=== PATIENT | female | born 1940 | race Two or more races ===

== ENCOUNTER 2021-02-15 13:13 | Emergency (ER) | payer MEDICARE, SELFPAY ==
[2021-02-15 14:01] VITALS: BP 117/65; PULSE 67; RESP 18; TEMP 36.7; O2SAT 96; BMI 20.2
== END 2021-02-15 18:10 | disposition left against medical advice (07) ==
PROVIDERS: Emergency Provider Emergency Medicine
DX: Z91.81 History of falling (principal)
CPT/HCPCS: 99281; 99282

== ENCOUNTER 2021-11-17 15:38 | Outpatient (REF) | payer OTHER, SELFPAY ==
[2021-11-17 16:07] LABS: Appearance Urine CLEAR; Color Urine YELLOW; Glucose Urine UA NEG (NEG); Leukocyte Esterase Urine NEG (NEG); Nitrite Urine NEG (NEG); Specific Gravity - Urine 1.025 (1.005-1.025); Urine Blood TRACE (NEG); Urine Ketones NEG (NEG); Urine Protein NEG (NEG-TRACE)
[2021-11-17 16:16] LABS: Bacteria Urine TRACE /LPF; RBC Urine 0-2 /HPF (0); Squamous Epithelial Cell Urine 1+ /LPF; WBC Urine 0 /HPF (0-4)
== END 2021-11-17 15:39 | disposition home or self-care (01) ==
LOC: HO.LAB 15:38
PROVIDERS: PCP Registered Nurse Community Health; Visit Provider Internal Medicine Hypertension Specialist
DX: N18.31 Chronic kidney disease, stage 3a (principal)
CPT/HCPCS: 81001

== ENCOUNTER 2022-01-13 10:21 | Inpatient (IN) | payer OTHER, SELFPAY ==
--- NOTE | ~2022-01-13 | XR_ITS ---
EXAMINATION: XR PELVIS CLINICAL INFORMATION: Right pelvic fracture COMPARISON: Previous CT of the abdomen and pelvis December 2021 TECHNIQUE: AP view of the pelvis. FINDINGS: There are fractures of the right superior and inferior pubic rami near the pubic symphysis. Do not appear appreciably changed from December 2021 exam. Fracture lines are still seen. Nondisplaced right iliac crest fracture extending to the sacroiliac joints seen by CT is difficult to appreciate by x-ray.. Hip joints are normal. Soft tissues are normal. XR/XR pelvis 1-2V IMPRESSION: No change in the right superior and inferior pubic rami fractures near the pubic symphysis. Nondisplaced right iliac bone fracture difficult to appreciate by x-ray.
--- NOTE | ~2022-01-13 | CT_ITS ---
EXAMINATION: CT CERVICAL SPINE WITHOUT CONTRAST CLINICAL INFORMATION: Neck pain. Fall. COMPARISON: Previous cervical spine CT July 2016 TECHNIQUE: Axial images through the cervical spine without contrast. Sagittal and coronal reconstructions on the technologist workstation were performed. This CT examination was performed using dose optimization techniques as appropriate, variously including the following: *Automated exposure control *Adjustment of mA and/or kV according to patient size (this includes techniques or standardized protocols for targeted exams where dose is matched to indication/reason for exam; i.e. extremities or head) *Use of iterative reconstruction technique DLP: 198 mGy-cm FINDINGS: Bone alignment is normal. No fracture or dislocation is seen. There is degenerative spondylosis at C5-C6. There are degenerative changes at the C1 dens articulation. There is bilateral facet arthritis. Prevertebral soft tissues are normal. Visualized lung apices are clear. CT/CT cervical spine wo con IMPRESSION: No fracture or dislocation. Mild degenerative changes. Fleischner guidelines were followed.
--- NOTE | ~2022-01-13 | CT_ITS ---
EXAMINATION: CT CHEST WITHOUT IV CONTRAST CT ABDOMEN AND PELVIS WITHOUT IV CONTRAST CLINICAL INFORMATION: 81-year-old female with history of fall. COMPARISON: Abdomen/pelvis CT from 03/13/2020. TECHNIQUE: Noncontrast multidetector CT imaging examination of the chest, abdomen and pelvis was performed . Axial images are displayed at 0.6 mm and 5 mm slice thickness. Coronal and sagittal reformatted images were generated at the technologist's workstation and submitted for review. This CT examination was performed using dose optimization techniques as appropriate, variously including the following: *Automated exposure control *Adjustment of mA and/or kV according to patient size (this includes techniques or standardized protocols for targeted exams where dose is matched to indication/reason for exam; i.e. extremities or head) *Use of iterative reconstruction technique DLP: 602 mGy-cm FINDINGS: CHEST - LUNGS AND PLEURA: Trachea and central airways are widely patent and normal in caliber. Chronic interstitial lung disease has a basilar, lower lobe predominance. Associated chronic mild traction bronchiectasis. Findings compatible with chronic usual interstitial pneumonitis. No focal consolidation, pleural effusion or pneumothorax. MEDIASTINUM/LOWER NECK: Cardiomegaly with prominent left ventricle. No pericardial effusion. Atherosclerotic calcification of thoracic aorta. The ascending aorta is dilated up to 4.2 cm AP diameter at the level the right pulmonary artery (image 26, series 9). The hypodensity of the blood pool compared to the myocardium suggests presence of anemia. The esophagus is unremarkable. Thyroid gland is atrophied. No mediastinal mass. LYMPHATICS: No pathologic sized axillary, hilar or mediastinal lymph nodes. CHEST WALL/BONES: The visualized bones have normal alignment at the shoulders and sternoclavicular joints. No sternal fracture. Acute, mildly displaced fracture of the right lateral sixth rib. Probable acute, nondisplaced fracture of right lateral seventh rib. No chest wall hematoma. Old moderate compression fracture of the T12 vertebral body. No acute findings in the visualized degenerated lower cervical spine or thoracic spine. ABDOMEN AND PELVIS - HEPATOBILIARY: Liver has normal size and contour. No perihepatic fluid collection. Gallbladder is surgically absent. No dilated bile ducts. PANCREAS: No edema, mass or pancreatic ductal dilatation. SPLEEN: Normal. ADRENAL GLANDS: Normal. KIDNEYS AND URETERS: Kidneys are normal in size. No hydronephrosis or perinephric edema. There appears to be a punctate calyceal stone of the mid right kidney. The ureters are unremarkable. BOWEL AND PERITONEUM: No dilated loops of bowel. The appendix is normal. Colonic diverticulosis without diverticulitis. ABDOMINAL WALL: Unremarkable. VESSELS: Atherosclerotic calcification of the abdominal aorta and iliac arteries without aneurysm. No retroperitoneal hematoma. LYMPH NODES: No pathologic sized lymph nodes in the abdomen or pelvis. No inguinal lymphadenopathy. BLADDER AND PELVIC VISCERA: Urinary bladder is grossly normal. No uterine or adnexal mass. MUSCULOSKELETAL: Multilevel disc degenerative change and facet arthropathy of the levoscoliotic lumbar spine. No acute fractures in the lumbar spine. Chronic mild degenerative retrolisthesis of L2 on L3. Bones are diffusely osteopenic. There is an acute, mildly displaced fracture of the posterior right iliac bone that has extension to the posterior margin of the right sacroiliac joint. There are acute, moderately displaced right pubic bone fractures involving superior and inferior rami. Alignment is maintained at pubic symphysis. There is associated hemorrhage in adjacent soft tissues, involving space of Retzius, exerting mild mass effect upon urinary bladder. Mild posttraumatic swelling of the right obturator internus and externus muscles. Proximal femurs are intact. Small osteophytes of the mildly degenerated hips. No evidence of acetabular fracture. CT/CT abdomen pelvis wo con IMPRESSION: * Acute, mildly displaced fracture of the right lateral sixth rib and probable nondisplaced fracture of adjacent seventh rib. No pleural effusion or pneumothorax. * Chronic interstitial lung disease. * Acute, moderately displaced right pubic bone fractures with associated soft tissue hemorrhage involving space of Retzius with hematoma exerting mild mass effect upon urinary bladder. Also, there is a mildly displaced fracture of the posterior right iliac bone. * Old moderate compression fracture of T12 vertebral body. No acute vertebral fractures. * Colonic diverticulosis without diverticulitis. * Cardiomegaly. Mildly dilated ascending thoracic aorta is 4.2 cm diameter.
--- NOTE | ~2022-01-13 | CT_ITS ---
EXAMINATION: CT HEAD WITHOUT CONTRAST CLINICAL INFORMATION: Fall. COMPARISON: Previous head CT February 2018 TECHNIQUE: Contiguous axial imaging was performed from the skull base to vertex without intravenous administration of contrast. This CT examination was performed using dose optimization techniques as appropriate, variously including the following: *Automated exposure control *Adjustment of mA and/or kV according to patient size (this includes techniques or standardized protocols for targeted exams where dose is matched to indication/reason for exam; i.e. extremities or head) *Use of iterative reconstruction technique DLP: 990 mGy-cm FINDINGS: There is no evidence of an extra-axial collection. There is no evidence of intra-axial or extra-axial hemorrhage. The ventricles and extra-axial CSF spaces are prominent suggestive of generalized atrophy. There is mild nonspecific periventricular white matter disease. No mass, mass effect or infarct is seen. No skull fracture is seen. There are degenerative changes at the right temporomandibular joint. Visualized paranasal sinuses, mastoid air cells and middle ears are clear. CT/CT head/brain wo con IMPRESSION: No acute findings. Mild generalized atrophy and nonspecific periventricular white matter disease. Degenerative changes at the right temporomandibular joint.
[2022-01-13 10:30] VITALS: BP 127/77; PULSE 70; RESP 16; TEMP 37.3; O2SAT 98; BMI 22.1
--- NOTE | 2022-01-13 10:34 | ECG_ITS ---
Test Reason : fall Blood Pressure : / mmHG Vent. Rate : 066 BPM Atrial Rate : 066 BPM P-R Int : 156 ms QRS Dur : 084 ms QT Int : 408 ms P-R-T Axes : 022 -32 189 degrees QTc Int : 427 ms Normal sinus rhythm Left axis deviation Left ventricular hypertrophy with repolarization abnormality ( R in aVL , Luan product ) Abnormal ECG When compared with ECG of 14-MAY-2018 09:14, T wave inversion more evident in Lateral leads Referred By: Sera Baeza Electronically Signed By:Gear Ortiz
--- NOTE | 2022-01-13 10:46 | ED.FALL ---
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 Mode of arrival: EMS Limitations: altered mental status (dementia but did well with questions) History of Present Illness MD complaint: fall Onset (ago): hour(s) (12 hours ago EMS reports fall around 10pm last night) Fall from: standing Fall witnessed: no Place fall occurred: home Loss of consciousness: unsure Prolonged down time: no Symptoms prior to fall: dizziness (lost balance) Context: tripped/slipped Location of injury: head Severity: mild Quality: dull Associated symptoms (after fall): headache and other (laceration on head) Related Data Home Medications Medication Instructions Recorded Confirmed amlodipine 5 mg tablet 1 tab PO BEDTIME 01/13/22 01/13/22 cholecalciferol (vitamin D3) 50 1 cap PO QAM 01/13/22 01/13/22 mcg (2,000 unit) capsule donepezil 10 mg tablet 1 tab PO BEDTIME 01/13/22 01/13/22 mirtazapine 45 mg tablet 1 tab PO BEDTIME 01/13/22 01/13/22 omeprazole 20 mg capsule,delayed 1 cap PO QAM 01/13/22 01/13/22 release sertraline 100 mg tablet 2 tab PO QAM 01/13/22 01/13/22 trazodone 50 mg tablet 0.5 tab PO BEDTIME PRN 01/13/22 01/13/22 Allergies Allergy/AdvReac Type Severity Reaction Status Date / Time acetaminophen [Percocet] Allergy Mild denies Verified 01/13/22 10:35 oxycodone [Percocet] Allergy Mild denies Verified 01/13/22 10:35 Review of Systems Review of Systems: Constitutional : No Fever, No Chills, No Fatigue ENT/Mouth : No sore throat, No Rhinorrhea Eyes: No Eye Pain, No Swelling, No Redness Cardiovascular : No Chest Pain, No SOB, No Dyspnea on Exertion Respiratory : No Cough, No Sputum Gastrointestinal : No Nausea, No Vomiting, No Diarrhea, No abdominal Pain Genitourinary : No Dysuria, No Urinary Frequency, No Hematuria, Musculoskeletal : pos joint pain, No Myalgias, No Joint Swelling Skin : No Skin Lesions, No rash, pos skin laceration Neuro : No Weakness, No Numbness, No Dizziness, positive Headache Psych : No Anxiety/Panic, No Depression Heme/Lymph: No Bruising, No Bleeding,No Lymphadenopathy Endocrine : No Polyuria, No Polydipsia All other systems reviewed and are negative [facility] Past Medical History Attestation statement: The following information was validated with the patient. Source: old records reviewed Medical History Dementia Diabetes GERD (gastroesophageal reflux disease) HTN (hypertension) Family History Family History Sister Epilepsy Social History Social History Patient Tobacco Use Status: Never used Tobacco Use of substances other than those prescribed or required for medical reasons: No Advance Directives: No Advance Directives Information Provided: No Physical Exam Vital Signs: Vital Signs: Last Vital Signs Temp 98.8 F 01/13/22 15:48 Pulse 50 01/13/22 15:48 Resp 16 01/13/22 15:48 BP 112/52 L 01/13/22 15:48 Pulse Ox 94 01/13/22 15:48 BMI result Body Mass Index 22.1 Appearance: Alert. Oriented X2 (time). Mild acute distress. Eyes: Pupils equal, round and reactive to light. ENT: Pharynx normal. R posterior scalp 2cm linear laceration bleeding controlled Neck: Normal inspection. Neck supple. in collar CVS: Normal heart rate and rhythm. Pulses normal. Respiratory: No respiratory distress. Breath sounds normal. Abdomen: Soft and nontender. Back: no signs of trauma Skin: Skin warm and dry. Normal skin color. Normal skin turgor. Extremities: No lower extremity edema. No calf ttp. patient grimaces with lifting legs and grabs her abdomen Neuro: Oriented X 2( time). No motor deficit. No sensory deficit. Course Course Course Narrative: patient is unsure if she is vaccinated for COVID spoke to son - yesterday AM given medications, he left her at home, he went to check on her on - patient was home alone, Neil Ramirez [phone] she lives with a son who is hospitalized one level no stairs in apartment. family is unsure if she is vaccinated. message sent to orthopecis - pain management, trend H/H, no interventions NON WEIGHT BEARING, no need for transfers hemoglobin 11.3 which is 12 hours after the fall Procedures Laceration Laceration 1: Site: scalp Side (If applicable): right Size (cm): 2 Description: linear Depth: simple, single layer Local Anesthetic: other anesthetic (LMX) Pre-repair: wound explored Skin layer closed with: other (2 mychal) MDM - Fall MDM Narrative Medical decision making narrative: 81 yo female with hx of HTN, dementia not on blood thinners here with c/o fall last night at home due to feeling dizzy she hit head unsure of LOC she has no complaints other than headache, patient is demented but able to answer most questions - she will need full CT scans of head, cervical spine, chest and abdomen/pelvis for trauma. PO tylenol for pain, laceration repair. Dispo per results and findings. Lab Data Result diagrams: 01/13/22 10:52 01/13/22 10:52 Labs: Lab Results 01/13/22 01/13/22 01/13/22 Range/Units 10:52 10:52 10:52 WBC 7.3 (4.8-10.8) X10*3/uL RBC 3.69 L (4.20-5.50) X10*6/uL Hgb 11.3 L (12.0-16.0) g/dl Hct 35.3 L (37.0-47.0) % MCV 95.7 (80.0-98.0) fL MCH 30.6 (27.0-33.0) pg MCHC 32.0 (31.0-35.0) g/dl RDW 12.6 (11.0-16.0) % Plt Count 114 L (160-400) X10*3/uL MPV 9.4 (9.4-12.3) fL Immature Gran % (Auto) 0.5 H (0.0-0.4) % Neut % (Auto) 78.7 H (45-73) % Lymph % (Auto) 11.5 L (20-40) % [place] % (Auto) 9.2 (2-11) % Eos % (Auto) 0.0 (0-4) % Baso % (Auto) 0.1 (0-2) % Lymph # (Auto) 0.8 L (1.2-4.9) X10*3/uL [place] # (Auto) 0.7 (0.1-1.2) X10*3/uL Eos # (Auto) 0.0 (0.0-0.4) X10*3/uL Baso # (Auto) 0.0 (0.0-0.2) X10*3/uL Abs Immat Gran (auto) 0.04 H (0.00-0.03) X10*3/uL Absolute Neuts (auto) 5.7 (2.0-8.3) x10*3/uL Absolute Nucleated RBC 0.000 (0.0-0.012) X10*3/uL Nucleated RBC % (auto) 0.0 (0.0-0.2) /100WBC PT (9.9-13.0) SEC INR (0.9-1.1) APTT (24.1-38.0) SEC Sodium 140 (135-145) mmol/L Potassium 5.4 H (3.3-5.1) mmol/L Chloride 103 (96-108) mmol/L Carbon Dioxide 31 H (22-29) mmol/L Anion Gap 11 L (12-20) BUN 30 H (9-16) mg/dL Creatinine 1.28 (0.5-1.4) mg/dL Estim Creat Clear Calc 23.9 Estimated GFR 40 Random Glucose 124 H (60-115) mg/dL Estimat Average Glucose mg/dL Hemoglobin A1c % % Calcium 9.1 (8.4-10.2) mg/dL Magnesium 2.1 (1.6-2.6) mg/dL Total Bilirubin 0.7 (0.0-1.0) mg/dL Direct Bilirubin 0.3 (0.0-0.5) mg/dL AST 25 (5-31) U/L ALT 16 (0-31) U/L Alkaline Phosphatase 48 (39-117) U/L Total Creatine Kinase 166 H (26-140) U/L Troponin I High Sens (<3.5-17.0) ng/L Total Protein 6.9 (6.5-8.0) g/dL Albumin 3.9 (3.5-5.0) g/dL Lipase 28 (8-78) U/L COVID-19 (DEANGELO) Positive A (Negative) COVID-19 Clin Com See Note 01/13/22 01/13/22 01/13/22 Range/Units 10:52 10:52 10:52 WBC (4.8-10.8) X10*3/uL RBC (4.20-5.50) X10*6/uL Hgb (12.0-16.0) g/dl Hct (37.0-47.0) % MCV (80.0-98.0) fL MCH (27.0-33.0) pg MCHC (31.0-35.0) g/dl RDW (11.0-16.0) % Plt Count (160-400) X10*3/uL MPV (9.4-12.3) fL Immature Gran % (Auto) (0.0-0.4) % Neut % (Auto) (45-73) % Lymph % (Auto) (20-40) % [place] % (Auto) (2-11) % Eos % (Auto) (0-4) % Baso % (Auto) (0-2) % Lymph # (Auto) (1.2-4.9) X10*3/uL [place] # (Auto) (0.1-1.2) X10*3/uL Eos # (Auto) (0.0-0.4) X10*3/uL Baso # (Auto) (0.0-0.2) X10*3/uL Abs Immat Gran (auto) (0.00-0.03) X10*3/uL Absolute Neuts (auto) (2.0-8.3) x10*3/uL Absolute Nucleated RBC (0.0-0.012) X10*3/uL Nucleated RBC % (auto) (0.0-0.2) /100WBC PT 12.1 (9.9-13.0) SEC INR 1.1 (0.9-1.1) APTT 29.2 (24.1-38.0) SEC Sodium (135-145) mmol/L Potassium (3.3-5.1) mmol/L Chloride (96-108) mmol/L Carbon Dioxide (22-29) mmol/L Anion Gap (12-20) BUN (9-16) mg/dL Creatinine (0.5-1.4) mg/dL Estim Creat Clear Calc Estimated GFR Random Glucose (60-115) mg/dL Estimat Average Glucose 114 mg/dL Hemoglobin A1c % 5.6 % Calcium (8.4-10.2) mg/dL Magnesium (1.6-2.6) mg/dL Total Bilirubin (0.0-1.0) mg/dL Direct Bilirubin (0.0-0.5) mg/dL AST (5-31) U/L ALT (0-31) U/L Alkaline Phosphatase (39-117) U/L Total Creatine Kinase (26-140) U/L Troponin I High Sens 14.8 (<3.5-17.0) ng/L Total Protein (6.5-8.0) g/dL Albumin (3.5-5.0) g/dL Lipase (8-78) U/L COVID-19 (DEANGELO) (Negative) COVID-19 Clin Com 01/13/22 Range/Units 13:57 WBC (4.8-10.8) X10*3/uL RBC (4.20-5.50) X10*6/uL Hgb (12.0-16.0) g/dl Hct (37.0-47.0) % MCV (80.0-98.0) fL MCH (27.0-33.0) pg MCHC (31.0-35.0) g/dl RDW (11.0-16.0) % Plt Count (160-400) X10*3/uL MPV (9.4-12.3) fL Immature Gran % (Auto) (0.0-0.4) % Neut % (Auto) (45-73) % Lymph % (Auto) (20-40) % [place] % (Auto) (2-11) % Eos % (Auto) (0-4) % Baso % (Auto) (0-2) % Lymph # (Auto) (1.2-4.9) X10*3/uL [place] # (Auto) (0.1-1.2) X10*3/uL Eos # (Auto) (0.0-0.4) X10*3/uL Baso # (Auto) (0.0-0.2) X10*3/uL Abs Immat Gran (auto) (0.00-0.03) X10*3/uL Absolute Neuts (auto) (2.0-8.3) x10*3/uL Absolute Nucleated RBC (0.0-0.012) X10*3/uL Nucleated RBC % (auto) (0.0-0.2) /100WBC PT (9.9-13.0) SEC INR (0.9-1.1) APTT (24.1-38.0) SEC Sodium (135-145) mmol/L Potassium (3.3-5.1) mmol/L Chloride (96-108) mmol/L Carbon Dioxide (22-29) mmol/L Anion Gap (12-20) BUN (9-16) mg/dL Creatinine (0.5-1.4) mg/dL Estim Creat Clear Calc Estimated GFR Random Glucose (60-115) mg/dL Estimat Average Glucose mg/dL Hemoglobin A1c % % Calcium (8.4-10.2) mg/dL Magnesium (1.6-2.6) mg/dL Total Bilirubin (0.0-1.0) mg/dL Direct Bilirubin (0.0-0.5) mg/dL AST (5-31) U/L ALT (0-31) U/L Alkaline Phosphatase (39-117) U/L Total Creatine Kinase (26-140) U/L Troponin I High Sens 16.1 (<3.5-17.0) ng/L Total Protein (6.5-8.0) g/dL Albumin (3.5-5.0) g/dL Lipase (8-78) U/L COVID-19 (DEANGELO) (Negative) COVID-19 Clin Com ECG Data Attestation: I personally reviewed and interpreted this ECG as follows: ECG interpretation date: 01/13/22 ECG interpretation time: 10:50 Interpretation: Rate: 66 Rhythm: NSR [place]: left , LVH Normal P waves. Normal ANILA. Normal QRS complex. ST T wave : no DARY, lateral and anterior t wave inversions - noted in 2017 and 2018 qTC: normal prior studies: unchanged from prior The study has been interpreted contemporaneously by me. . Critical Care Time Critical Care Time Critical Care Time: Yes Total Critical Care Time: 60 Attestation: review of labs, IV morphine for pain, CT trauma scans, medical consult to orthopedics, family discussion x 2. admission to the hospital I attest to this time spent taking care of the patient Discharge Plan Discharge Clinical Impression: COVID-19, Closed fracture of iliac wing Laceration of scalp Qualifiers: Encounter type: initial encounter Qualified Code(s): S01.01XA - Laceration without foreign body of scalp, initial encounter Closed rib fracture Qualifiers: Encounter type: initial encounter Rib fracture type: multiple ribs Laterality: right Qualified Code(s): S22.41XA - Multiple fractures of ribs, right side, initial encounter for closed fracture Pubic bone fracture Qualifiers: Encounter type: initial encounter Fracture type: closed Fracture alignment: displaced Laterality: right Qualified Code(s): S32.501A - Unspecified fracture of right pubis, initial encounter for closed fracture Patient Disposition: Admitted As Inpatient
[2022-01-13 10:58] LABS: MANUAL DIFF FLAG NO
[2022-01-13 10:59] LABS: Basophils Percent Auto 0.1 % (0-2); Hematocrit 35.3 % (37.0-47.0); Hemoglobin 11.3 g/dl (12.0-16.0); Imm Gran Abs Auto 0.04 X10*3/uL (0.00-0.03); Imm Gran Pct Auto 0.5 % (0.0-0.4); Lymphocytes Absolute Auto 0.8 X10*3/uL (1.2-4.9); Lymphocytes Percent Auto 11.5 % (20-40); Mean Corpuscular Hemoglobin 30.6 pg (27.0-33.0); Mean Corpuscular Volume 95.7 fL (80.0-98.0); Mean Platelet Volume 9.4 fL (9.4-12.3); Monocytes Absolute Auto 0.7 X10*3/uL (0.1-1.2); Monocytes Percent Auto 9.2 % (2-11); Neutrophils Absolute Auto 5.7 x10*3/uL (2.0-8.3); Neutrophils Percent Auto 78.7 % (45-73); Platelet Count 114 X10*3/uL (160-400); Red Blood Count 3.69 X10*6/uL (4.20-5.50); Red Cell Distribution Width 12.6 % (11.0-16.0); White Blood Count 7.3 X10*3/uL (4.8-10.8)
[2022-01-13 11:05] LABS: COVID-19 Test Positive (Negative); IDNOW Serial# 9DB6401D
[2022-01-13 11:10] LABS: INTERNATIONAL NORM RATIO 1.1 (0.9-1.1); Prothrombin Time 12.1 SEC (9.9-13.0)
[2022-01-13 11:12] LABS: Partial Thromboplastin Time 29.2 SEC (24.1-38.0)
[2022-01-13 11:21] LABS: Troponin-I High Sensitivity 14.8 ng/L (<3.5-17.0)
[2022-01-13 11:22] LABS: Alanine Aminotransferase 16 U/L (0-31); Albumin Level 3.9 g/dL (3.5-5.0); Alkaline Phosphatase 48 U/L (39-117); Anion Gap 11 (12-20); Aspartate Amino Transferase 25 U/L (5-31); Bilirubin Direct 0.3 mg/dL (0.0-0.5); Bilirubin Total 0.7 mg/dL (0.0-1.0); Blood Urea Nitrogen 30 mg/dL (9-16); Calcium 9.1 mg/dL (8.4-10.2); Carbon Dioxide 31 mmol/L (22-29); Chloride 103 mmol/L (96-108); Creatinine Clr Calc Pharmacy 23.9; Estimated Glomerular Filt Rate 40; Glucose Random 124 mg/dL (60-115); Lipase 28 U/L (8-78); Magnesium 2.1 mg/dL (1.6-2.6); Potassium 5.4 mmol/L (3.3-5.1); Sodium 140 mmol/L (135-145); Total Protein 6.9 g/dL (6.5-8.0)
[2022-01-13] MEDS: Acetaminophen 325 MG TABLET 650 MG PO (11:57)
[2022-01-13] MEDS: Lidocaine 4 % Cream KIT 1 APPL TOPICAL (11:57)
[2022-01-13] MEDS: 0.9 % Sodium Chloride 500 ML IV (11:57)
[2022-01-13] MEDS: ondansetron HCL 4 MG/2 ML VIAL IVPUSH (14:13)
[2022-01-13] MEDS: Morphine Sulfate 2 MG/ML CARTRIDGE IVPUSH (14:13)
[2022-01-13 14:25] LABS: Troponin-I High Sensitivity 16.1 ng/L (<3.5-17.0)
[2022-01-13 14:31] VITALS: BP 128/74; PULSE 57; RESP 18; O2SAT 94
--- NOTE | 2022-01-13 15:00 | P.HPHOSP_ITS ---
History of Present Illness Date of Service: 01/13/22 Chief Complaint: fall, right chest pain 81F poor hisotrian due to dementia, history from patient, and son who did not witness event. patient reports on evening ptp, she was getting up from couch to use restroom and tripped hitting her head on the table and falling, due to pain and weakness on her right side she was unable to get up. patient normally lives with her son who is currently hospitalized. another son came to check on her and patient was on floor, ems was called. patient denies LOC. in ED laceration to head was closed with mychal. CT showed right sided rib fractures, moderately displaced right pubic bone fracture with soft tissue hemorrhage and mildly displaced fracture of posterior right iliac bone. incidentally found to be covid positive, asymptomatic, unknown vaccination status. Review of Systems Review of Systems: Constitutional: Denies fever, denies Chills Eyes: denies blurry vision ENT: denies sore throat CVS: denies chest pain Respiratory: Denies dyspnea GI: no abdominal pain : denies dysuria MSK: denies neck pain Skin: denies rash Neuro: denies specific motor weakness Psych: denies suicidal ideation Endocrine: denies heat/cold intolerance Hematologic: denies easy bleeding Allergy: denies hives PMFSH Medical History Dementia Diabetes GERD (gastroesophageal reflux disease) HTN (hypertension) Family History Sister Epilepsy Social History Patient Tobacco Use Status: Never used Tobacco Use of substances other than those prescribed or required for medical reasons: No Advance Directives: No Advance Directives Information Provided: No Meds Allergies Allergy/AdvReac Type Severity Reaction Status Date / Time acetaminophen [Percocet] Allergy Mild denies Verified 01/13/22 10:35 oxycodone [Percocet] Allergy Mild denies Verified 01/13/22 10:35 Active Medications: Current Medications Pharmacy Consult (Consult Rx Perform Med Rec) 1 each MISCELLANE ONCE PRN PRN Reason: Consult order Sodium Chloride (0.9 % Sodium Chloride Flush 3 Ml Syringe) 3 ml IVFLUSH QSHIFT JOSE FRANCISCO Physical Exam Vital Signs and Narrative: Vital Signs: Last Vital Signs Temp 99.1 F 01/13/22 10:30 Pulse 57 01/13/22 14:31 Resp 18 01/13/22 14:31 BP 128/74 01/13/22 14:31 Pulse Ox 94 01/13/22 14:31 BMI result Body Mass Index 22.1 General: no acute distress, frail HEENT: atraumatic Neck: normal to visual inspection CVS: S1, S2, RRR Resp: CTA bilateral Chest: non tender GI: soft, non tender, non distended : no CVA tenderness Skin: no rashes Extremities: no edema Neuro: Oriented X2, grossly intact Psych: cooperative Results Labs CBC and Chem 7: 01/13/22 10:52 01/13/22 10:52 Labs: Laboratory Results - last 24 hr 01/13/22 01/13/22 01/13/22 10:52 10:52 10:52 MCV 95.7 MCH 30.6 MCHC 32.0 RDW 12.6 Plt Count 114 L MPV 9.4 Immature Gran % (Auto) 0.5 H Neut % (Auto) 78.7 H Lymph % (Auto) 11.5 L [place] % (Auto) 9.2 Eos % (Auto) 0.0 Baso % (Auto) 0.1 Lymph # (Auto) 0.8 L [place] # (Auto) 0.7 Eos # (Auto) 0.0 Baso # (Auto) 0.0 Abs Immat Gran (auto) 0.04 H Absolute Neuts (auto) 5.7 Absolute Nucleated RBC 0.000 Nucleated RBC % (auto) 0.0 PT INR APTT Anion Gap 11 L Estim Creat Clear Calc 23.9 Estimated GFR 40 Random Glucose 124 H Calcium 9.1 Magnesium 2.1 Total Bilirubin 0.7 Direct Bilirubin 0.3 AST 25 ALT 16 Alkaline Phosphatase 48 Total Creatine Kinase 166 H Troponin I High Sens Total Protein 6.9 Albumin 3.9 Lipase 28 COVID-19 (DEANGELO) Positive A COVID-19 Clin Com See Note 01/13/22 01/13/22 01/13/22 10:52 10:52 13:57 MCV MCH MCHC RDW Plt Count MPV Immature Gran % (Auto) Neut % (Auto) Lymph % (Auto) [place] % (Auto) Eos % (Auto) Baso % (Auto) Lymph # (Auto) [place] # (Auto) Eos # (Auto) Baso # (Auto) Abs Immat Gran (auto) Absolute Neuts (auto) Absolute Nucleated RBC Nucleated RBC % (auto) PT 12.1 INR 1.1 APTT 29.2 Anion Gap Estim Creat Clear Calc Estimated GFR Random Glucose Calcium Magnesium Total Bilirubin Direct Bilirubin AST ALT Alkaline Phosphatase Total Creatine Kinase Troponin I High Sens 14.8 16.1 Total Protein Albumin Lipase COVID-19 (DEANGELO) COVID-19 Clin Com Imaging Radiologist's Impressions: Impressions Abdomen/Pelvis CT 01/13/22 12:10 IMPRESSION: * Acute, mildly displaced fracture of the right lateral sixth rib and probable nondisplaced fracture of adjacent seventh rib. No pleural effusion or pneumothorax. * Chronic interstitial lung disease. * Acute, moderately displaced right pubic bone fractures with associated soft tissue hemorrhage involving space of Retzius with hematoma exerting mild mass effect upon urinary bladder. Also, there is a mildly displaced fracture of the posterior right iliac bone. * Old moderate compression fracture of T12 vertebral body. No acute vertebral fractures. * Colonic diverticulosis without diverticulitis. * Cardiomegaly. Mildly dilated ascending thoracic aorta is 4.2 cm diameter. Cervical Spine CT 01/13/22 12:10 IMPRESSION: No fracture or dislocation. Mild degenerative changes. Fleischner guidelines were followed. Chest CT 01/13/22 12:10 IMPRESSION: * Acute, mildly displaced fracture of the right lateral sixth rib and probable nondisplaced fracture of adjacent seventh rib. No pleural effusion or pneumothorax. * Chronic interstitial lung disease. * Acute, moderately displaced right pubic bone fractures with associated soft tissue hemorrhage involving space of Retzius with hematoma exerting mild mass effect upon urinary bladder. Also, there is a mildly displaced fracture of the posterior right iliac bone. * Old moderate compression fracture of T12 vertebral body. No acute vertebral fractures. * Colonic diverticulosis without diverticulitis. * Cardiomegaly. Mildly dilated ascending thoracic aorta is 4.[address] 01/13/22 12:14 IMPRESSION: No acute findings. Mild generalized atrophy and nonspecific periventricular white matter disease. Degenerative changes at the right temporomandibular joint. Assessment and Plan (1) COVID-19: Status: Acute Plan 81F presented with fall, found to have right sided rib and pelvic fractures, incidentally covid positive fall, likely mechanical complicated by right 6th rib fracture, right pelvic fractures complicated by hematoma per ortho non surgical, non weight bearing for about 6 weeks pain appears controlled monitor h and h (due to hematoma) PT eval asymptomatic covid isolation htn currently normotensive will hold off on antihypertensives and montior mentioned history of DM not on meds at home, glucose normal, check a1c dementia at baseline, likely alzheimers chronic ild on CT chest asymptomatic, unclear if previously documented hyperkalemia 5.4, hold nicolas-I, monitor dvt prophylaxis - mechanical due to hematoma full code patient with fracture complicated by hematoma that needs close monitoring of h and h, high risk due to fraility and advanced age and covid positive status, will likely require atleast 2 midnights in hospital. Quality Stroke Does the patient have a stroke diagnosis?: No VTE Prior VTE?: No VTE Risk Level:: Medical - moderate - high VTE Device Contraindication: N/A - Device Ordered VTE Drug Contraindication: Treatment Not Tolerated
[2022-01-13 15:10] LABS: Estimated Average Glucose 114 mg/dL; Hemoglobin A1c % 5.6 %
--- NOTE | 2022-01-13 15:19 | PHA.MEDREC ---
Pharmacy Consult ? Medication Reconciliation Pharmacy has completed the medication reconciliation. Patient uses med box service at [facility]
[2022-01-13 15:39] VITALS: BP 112/52; PULSE 50; O2SAT 94
[2022-01-13 15:48] VITALS: BP 112/52; PULSE 50; RESP 16; TEMP 37.1; O2SAT 94
[2022-01-13] MEDS: Diphth,Pertus(ACell),Tet Adult 0.5 ML SYRINGE IM (17:04)
[2022-01-13] MEDS: 0.9 % Sodium Chloride Flush 3 ML SYRINGE IVFLUSH ×2 (17:05→23:50)
[2022-01-13 17:48] VITALS: BP 132/60; PULSE 50; RESP 16; O2SAT 93
[2022-01-13] MEDS: Mirtazapine 15 MG TABLET 45 MG PO (21:22)
--- NOTE | 2022-01-13 21:42 | PC.NURSE ---
meds requested from pharmacy. this RN updated pt son earlier about POC
[2022-01-13] MEDS: Donepezil HCl 10 MG TABLET PO (22:14)
[2022-01-14] VITALS (8 sets, daily range): BP systolic 109–149; BP diastolic 58–85; PULSE 53–79; RESP 13–20; TEMP 36.6–37.1; O2SAT 92–96; BMI 22.4
[2022-01-14] MEDS: 0.9 % Sodium Chloride Flush 3 ML SYRINGE IVFLUSH ×3 (01:05→22:00)
--- NOTE | 2022-01-14 01:12 | PC.NURSE ---
This RN noé hawthorne MD for pain medication for patient.
[2022-01-14] MEDS: Omeprazole 20 MG CAPSULE.DR PO (06:27)
--- NOTE | 2022-01-14 06:32 | PC.NURSE ---
pt c/o pain, MD aware.
[2022-01-14] MEDS: NaPROXEN 500 MG TABLET PO (06:56)
[2022-01-14 07:31] LABS: Hematocrit 33.7 % (37.0-47.0); Hemoglobin 10.8 g/dl (12.0-16.0); Mean Corpuscular Hemoglobin 30.7 pg (27.0-33.0); Mean Corpuscular Volume 95.7 fL (80.0-98.0); Mean Platelet Volume 10.4 fL (9.4-12.3); Platelet Count 107 X10*3/uL (160-400); Red Blood Count 3.52 X10*6/uL (4.20-5.50); Red Cell Distribution Width 12.8 % (11.0-16.0); White Blood Count 5.3 X10*3/uL (4.8-10.8)
[2022-01-14 07:48] LABS: Anion Gap 12 (12-20); Blood Urea Nitrogen 27 mg/dL (9-16); Calcium 8.8 mg/dL (8.4-10.2); Carbon Dioxide 27 mmol/L (22-29); Chloride 106 mmol/L (96-108); Creatinine Clr Calc Pharmacy 35.2; Estimated Glomerular Filt Rate > 60; Glucose Fasting 88 mg/dL (60-99); Potassium 4.3 mmol/L (3.3-5.1); Sodium 141 mmol/L (135-145)
[2022-01-14] MEDS: Sertraline HCL 100 MG TABLET 200 MG PO (07:51)
[2022-01-14] MEDS: Cholecalciferol (Vitamin D3) 25 MCG TABLET 50 MCG PO (07:51)
--- NOTE | 2022-01-14 07:55 | PC.NURSE ---
Pt resting in stretcher. no c/o pain. medicated per OCT. VSS. pt took meds whole in applesauce with no issues.
[2022-01-14] MEDS: oxyCODONE HCl Immed Release 5 MG TABLET PO ×2 (12:43→22:10)
--- NOTE | 2022-01-14 13:15 | HO.PM.IMPN ---
Subjective Subjective Date of Service: 01/14/22 Interval History: cc: fall interval history: pain Cardiovascular Cardiovascular: Reports no additional cardiovascular complaints Respiratory Respiratory: Reports no additional respiratory complaints Physical Exam Vital Signs: Vital Signs: Last Vital Signs Temp 98.8 F 01/14/22 12:56 Pulse 67 01/14/22 12:56 Resp 15 01/14/22 12:56 BP 130/66 01/14/22 12:56 Pulse Ox 94 01/14/22 12:56 BMI result Body Mass Index 22.1 General: AO X 3, in pain Resp: CTA bilateral, no accessory muscles used CVS: S1,S2,RRR GI: soft, non tender, non distended Neuro: motor grossly intact, alert Psych: appropriate affect, appropriate insight Objective Data Active Medications Donepezil HCl (Donepezil Hcl 10 Mg Tablet) 10 mg PO BEDTIME [facility] Last Admin: 01/13/22 22:14 Dose: 10 mg Documented by: MARIBELL Mirtazapine (Mirtazapine 15 Mg Tablet) 45 mg PO BEDTIME [facility] Last Admin: 01/13/22 21:22 Dose: 45 mg Documented by: CLAUDIA Omeprazole (Omeprazole 20 Mg Capsule.Dr) 20 mg PO DAILY@0630 [facility] Last Admin: 01/14/22 06:27 Dose: 20 mg Documented by: CLAUDIA Oxycodone HCl (Oxycodone Hcl Immed Release 5 Mg Tablet) 5 mg PO Q4H PRN PRN Reason: moderate pain Last Admin: 01/14/22 12:43 Dose: 5 mg Documented by: MISAEL Pharmacy Consult (Consult Rx Perform Med Rec) 1 each MISCELLANE ONCE PRN PRN Reason: Consult order Sertraline HCl (Sertraline Hcl 100 Mg Tablet) 200 mg PO DAILY [facility] Last Admin: 01/14/22 07:51 Dose: 200 mg Documented by: MISAEL Sodium Chloride (0.9 % Sodium Chloride Flush 3 Ml Syringe) 3 ml IVFLUSH QSHIFT [facility] Last Admin: 01/13/22 23:50 Dose: 3 ml Documented by: CLAUDIA Trazodone HCl (Trazodone Hcl 25 Mg Halftab) 25 mg PO BEDTIME PRN PRN Reason: Insomnia Vitamin D (Cholecalciferol (Vitamin D3) 25 Mcg Tablet) 50 mcg PO DAILY [facility] Last Admin: 01/14/22 07:51 Dose: 50 mcg Documented by: MISAEL Labs CBC & Chem 7: 01/14/22 07:03 01/14/22 07:03 Labs: Laboratory Results - last 24 hr 01/13/22 01/13/22 01/14/22 10:52 13:57 07:03 MCV 95.7 MCH 30.7 MCHC 32.0 RDW 12.8 Plt Count 107 L MPV 10.4 Absolute Nucleated RBC 0.000 Nucleated RBC % (auto) 0.0 Anion Gap Estim Creat Clear Calc Estimated GFR Fasting Glucose Estimat Average Glucose 114 Hemoglobin A1c % 5.6 Calcium Troponin I High Sens 16.1 01/14/22 07:03 MCV MCH MCHC RDW Plt Count MPV Absolute Nucleated RBC Nucleated RBC % (auto) Anion Gap 12 Estim Creat Clear Calc 35.2 Estimated GFR > 60 Fasting Glucose 88 Estimat Average Glucose Hemoglobin A1c % Calcium 8.8 Troponin I High Sens Assessment and Plan (1) Closed fracture of iliac wing: Status: Acute Plan 81F presented with fall, found to have right sided rib and pelvic fractures, incidentally covid positive fall, likely mechanical complicated by right 6th rib fracture, right pelvic fractures complicated by hematoma per ortho non surgical, non weight bearing for about 6 weeks reporting pain will start oxy monitor h and h (due to hematoma) PT eval asymptomatic covid isolation, unclear timeline, not candidate for antivirals htn currently normotensive will hold off on antihypertensives and montior mentioned history of DM not on meds at home, glucose normal, check a1c dementia at baseline, likely alzheimers chronic ild on CT chest asymptomatic, unclear if previously documented hyperkalemia 5.4, hold nicolas-I, monitor dvt prophylaxis - mechanical due to hematoma full code reason for continued hospitalization:pain control, monitoring h and h Quality Stroke Does the patient have a stroke diagnosis?: No VTE Prior VTE?: No VTE Risk Level:: Medical - moderate - high VTE Device Contraindication: N/A - Device Ordered VTE Drug Contraindication: Treatment Not Tolerated
[2022-01-14] MEDS: Docusate Sodium 100 MG CAPSULE PO ×2 (15:58→21:57)
--- NOTE | 2022-01-14 17:09 | PC.NURSE ---
Report given to Jerry in the ED overflow unit.
[2022-01-14] MEDS: Mirtazapine 15 MG TABLET 45 MG PO (21:57)
[2022-01-14] MEDS: Donepezil HCl 10 MG TABLET PO (21:58)
[2022-01-14] MEDS: traZODone HCL 25 MG HALFTAB PO (22:10)
[2022-01-15 04:04] VITALS: BP 126/60; PULSE 63; RESP 12; TEMP 36.4; O2SAT 95
[2022-01-15] MEDS: Omeprazole 20 MG CAPSULE.DR PO (05:53)
[2022-01-15] MEDS: oxyCODONE HCl Immed Release 5 MG TABLET PO ×2 (05:54→15:52)
[2022-01-15 07:28] LABS: Hematocrit 30.6 % (37.0-47.0); Hemoglobin 9.9 g/dl (12.0-16.0); Mean Corpuscular HGB Conc 32.4 g/dl (31.0-35.0); Mean Corpuscular Hemoglobin 30.7 pg (27.0-33.0); Mean Corpuscular Volume 94.7 fL (80.0-98.0); Mean Platelet Volume 10.5 fL (9.4-12.3); Platelet Count 100 X10*3/uL (160-400); Red Blood Count 3.23 X10*6/uL (4.20-5.50); Red Cell Distribution Width 12.3 % (11.0-16.0); White Blood Count 5.6 X10*3/uL (4.8-10.8)
[2022-01-15 07:36] LABS: Anion Gap 11 (12-20); Blood Urea Nitrogen 28 mg/dL (9-16); Calcium 8.3 mg/dL (8.4-10.2); Carbon Dioxide 29 mmol/L (22-29); Chloride 104 mmol/L (96-108); Creatinine Clr Calc Pharmacy 38.7; Estimated Glomerular Filt Rate > 60; Glucose Fasting 80 mg/dL (60-99); Potassium 4.3 mmol/L (3.3-5.1); Sodium 140 mmol/L (135-145)
[2022-01-15 08:01] VITALS: BP 117/71; PULSE 90; RESP 16; TEMP 36.8; O2SAT 93
[2022-01-15] MEDS: Docusate Sodium 100 MG CAPSULE PO ×2 (10:08→20:08)
[2022-01-15] MEDS: Cholecalciferol (Vitamin D3) 25 MCG TABLET 50 MCG PO (10:08)
[2022-01-15] MEDS: 0.9 % Sodium Chloride Flush 3 ML SYRINGE IVFLUSH ×3 (10:08→20:08)
[2022-01-15] MEDS: Sertraline HCL 100 MG TABLET 200 MG PO (10:08)
--- NOTE | 2022-01-15 10:22 | HO.PM.IMPN ---
Subjective Subjective Date of Service: 01/15/22 Interval History: cc: fall interval history:pain Cardiovascular Cardiovascular: Reports no additional cardiovascular complaints Respiratory Respiratory: Reports no additional respiratory complaints Physical Exam Vital Signs: Vital Signs: Last Vital Signs Temp 98.2 F 01/15/22 08:01 Pulse 90 01/15/22 08:01 Resp 16 01/15/22 08:01 BP 117/71 01/15/22 08:01 Pulse Ox 93 01/15/22 08:01 BMI result Body Mass Index 22.4 General: AO X 3, in pain Resp:? CTA bilateral, no accessory muscles used CVS: S1,S2,RRR GI: soft, non tender, non distended Neuro:? motor grossly intact, alert Psych: appropriate affect, appropriate insight? Objective Data Active Medications Docusate Sodium (Docusate Sodium 100 Mg Capsule) 100 mg PO BID [facility] Last Admin: 01/15/22 10:08 Dose: 100 mg Documented by: BROB Donepezil HCl (Donepezil Hcl 10 Mg Tablet) 10 mg PO BEDTIME [facility] Last Admin: 01/14/22 21:58 Dose: 10 mg Documented by: CHEYANNE Mirtazapine (Mirtazapine 15 Mg Tablet) 45 mg PO BEDTIME [facility] Last Admin: 01/14/22 21:57 Dose: 45 mg Documented by: CHEYANNE Omeprazole (Omeprazole 20 Mg Capsule.Dr) 20 mg PO DAILY@0630 [facility] Last Admin: 01/15/22 05:53 Dose: 20 mg Documented by: CHEYANNE Oxycodone HCl (Oxycodone Hcl Immed Release 5 Mg Tablet) 5 mg PO Q4H PRN PRN Reason: moderate pain Last Admin: 01/15/22 05:54 Dose: 5 mg Documented by: CHEYANNE Pharmacy Consult (Consult Rx Perform Med Rec) 1 each MISCELLANE ONCE PRN PRN Reason: Consult order Senna (Sennosides 8.6 Mg Tablet) 17.2 mg PO Q24H PRN PRN Reason: constipation Sertraline HCl (Sertraline Hcl 100 Mg Tablet) 200 mg PO DAILY [facility] Last Admin: 01/15/22 10:08 Dose: 200 mg Documented by: DOBROB Sodium Chloride (0.9 % Sodium Chloride Flush 3 Ml Syringe) 3 ml IVFLUSH QSHIFT [facility] Last Admin: 01/15/22 10:08 Dose: 3 ml Documented by: DOBROB Trazodone HCl (Trazodone Hcl 25 Mg Halftab) 25 mg PO BEDTIME PRN PRN Reason: Insomnia Last Admin: 01/14/22 22:10 Dose: 25 mg Documented by: ANDERM Vitamin D (Cholecalciferol (Vitamin D3) 25 Mcg Tablet) 50 mcg PO DAILY [facility] Last Admin: 01/15/22 10:08 Dose: 50 mcg Documented by: CARLOS Labs CBC & Chem 7: 01/15/22 06:43 01/15/22 06:43 Labs: Laboratory Results - last 24 hr 01/15/22 01/15/22 06:43 06:43 MCV 94.7 MCH 30.7 MCHC 32.4 RDW 12.3 Plt Count 100 L MPV 10.5 Absolute Nucleated RBC 0.000 Nucleated RBC % (auto) 0.0 Anion Gap 11 L Estim Creat Clear Calc 38.7 Estimated GFR > 60 Fasting Glucose 80 Calcium 8.3 L Assessment and Plan (1) Closed fracture of iliac wing: Status: Acute Plan 81F presented with fall, found to have right sided rib and pelvic fractures, incidentally covid positive fall, likely mechanical complicated by right 6th rib fracture, right pelvic fractures complicated by hematoma per ortho non surgical, non weight bearing for about 6 weeks reporting pain will start oxy monitor h and h (due to hematoma), mild acute blood loss anemia PT eval covid isolation, unclear timeline, not candidate for antivirals, likely cause of thrombocytopenia htn currently normotensive will hold off on antihypertensives and montior mentioned history of DM a1c 5.6, likely resolved dementia at baseline, likely alzheimers chronic ild on CT chest asymptomatic, unclear if previously documented hyperkalemia resolved, hold nicolas-I, monitor dvt prophylaxis - mechanical due to hematoma full code reason for continued hospitalization:pain control, monitoring h and h Quality Stroke Does the patient have a stroke diagnosis?: No VTE Prior VTE?: No VTE Risk Level:: Medical - moderate - high VTE Device Contraindication: N/A - Device Ordered VTE Drug Contraindication: Treatment Not Tolerated
[2022-01-15 11:05] VITALS: BP 110/67; PULSE 87; RESP 20; TEMP 36.3; O2SAT 96
[2022-01-15 15:33] VITALS: BP 102/58; PULSE 77; RESP 18; TEMP 37.7; O2SAT 94
[2022-01-15] MEDS: Mirtazapine 15 MG TABLET 45 MG PO (20:07)
[2022-01-15] MEDS: traZODone HCL 25 MG HALFTAB PO (20:07)
[2022-01-15] MEDS: Donepezil HCl 10 MG TABLET PO (20:08)
[2022-01-15 20:23] VITALS: BP 110/57; PULSE 80; RESP 20; TEMP 37; O2SAT 95
[2022-01-15 23:49] VITALS: BP 121/78; PULSE 92; RESP 18; TEMP 36.7; O2SAT 97
[2022-01-16] MEDS: Omeprazole 20 MG CAPSULE.DR PO (05:46)
[2022-01-16] MEDS: oxyCODONE HCl Immed Release 5 MG TABLET PO ×3 (05:50→17:24)
[2022-01-16 06:30] LABS: Hematocrit 30.3 % (37.0-47.0); Hemoglobin 9.8 g/dl (12.0-16.0); Mean Corpuscular HGB Conc 32.3 g/dl (31.0-35.0); Mean Corpuscular Hemoglobin 30.5 pg (27.0-33.0); Mean Corpuscular Volume 94.4 fL (80.0-98.0); Mean Platelet Volume 10.8 fL (9.4-12.3); Platelet Count 108 X10*3/uL (160-400); Red Blood Count 3.21 X10*6/uL (4.20-5.50); Red Cell Distribution Width 12.4 % (11.0-16.0); White Blood Count 6.1 X10*3/uL (4.8-10.8)
[2022-01-16 06:39] LABS: Anion Gap 12 (12-20); Blood Urea Nitrogen 25 mg/dL (9-16); Calcium 8.6 mg/dL (8.4-10.2); Carbon Dioxide 31 mmol/L (22-29); Chloride 101 mmol/L (96-108); Creatinine Clr Calc Pharmacy 38.3; Estimated Glomerular Filt Rate > 60; Glucose Fasting 88 mg/dL (60-99); Potassium 4.5 mmol/L (3.3-5.1); Sodium 139 mmol/L (135-145)
[2022-01-16 07:36] VITALS: BP 123/63; PULSE 66; RESP 20; TEMP 36.8; O2SAT 94
[2022-01-16] MEDS: Cholecalciferol (Vitamin D3) 25 MCG TABLET 50 MCG PO (09:18)
[2022-01-16] MEDS: Sertraline HCL 100 MG TABLET 200 MG PO (09:18)
[2022-01-16] MEDS: 0.9 % Sodium Chloride Flush 3 ML SYRINGE IVFLUSH ×3 (09:18→21:25)
[2022-01-16] MEDS: Docusate Sodium 100 MG CAPSULE PO ×2 (09:18→21:24)
--- NOTE | 2022-01-16 13:58 | P.PNIM_ITS ---
Subjective Subjective Date of Service: 01/16/22 Interval History: cc: fall interval history:pain better Respiratory Respiratory: Reports no additional respiratory complaints Gastrointestinal Gastrointestinal: Reports no additional gastrointestinal complaints Physical Exam Vital Signs: Vital Signs: Last Vital Signs Temp 98.2 F 01/16/22 07:36 Pulse 66 01/16/22 07:36 Resp 20 01/16/22 07:36 BP 123/63 01/16/22 07:36 Pulse Ox 94 01/16/22 07:36 BMI result Body Mass Index 22.4 General: AO X 3, in pain Resp:? CTA bilateral, no accessory muscles used CVS: S1,S2,RRR GI: soft, non tender, non distended Neuro:? motor grossly intact, alert Psych: appropriate affect, appropriate insight? Objective Data Active Medications Docusate Sodium (Docusate Sodium 100 Mg Capsule) 100 mg PO BID [facility] Last Admin: 01/16/22 09:18 Dose: 100 mg Documented by: CARLOS Donepezil HCl (Donepezil Hcl 10 Mg Tablet) 10 mg PO BEDTIME [facility] Last Admin: 01/15/22 20:08 Dose: 10 mg Documented by: ANDERM Mirtazapine (Mirtazapine 15 Mg Tablet) 45 mg PO BEDTIME [facility] Last Admin: 01/15/22 20:07 Dose: 45 mg Documented by: ANDNICOLLE Omeprazole (Omeprazole 20 Mg Capsule.Dr) 20 mg PO DAILY@0630 [facility] Last Admin: 01/16/22 05:46 Dose: 20 mg Documented by: ANDNICOLLE Oxycodone HCl (Oxycodone Hcl Immed Release 5 Mg Tablet) 5 mg PO Q4H PRN PRN Reason: moderate pain Last Admin: 01/16/22 10:38 Dose: 5 mg Documented by: CARLOS Pharmacy Consult (Consult Rx Perform Med Rec) 1 each MISCELLANE ONCE PRN PRN Reason: Consult order Senna (Sennosides 8.6 Mg Tablet) 17.2 mg PO Q24H PRN PRN Reason: constipation Sertraline HCl (Sertraline Hcl 100 Mg Tablet) 200 mg PO DAILY [facility] Last Admin: 01/16/22 09:18 Dose: 200 mg Documented by: CARLOS Sodium Chloride (0.9 % Sodium Chloride Flush 3 Ml Syringe) 3 ml IVFLUSH QSHIFT [facility] Last Admin: 01/16/22 09:18 Dose: 3 ml Documented by: DOBROB Trazodone HCl (Trazodone Hcl 25 Mg Halftab) 25 mg PO BEDTIME PRN PRN Reason: Insomnia Last Admin: 01/15/22 20:07 Dose: 25 mg Documented by: ANDERM Vitamin D (Cholecalciferol (Vitamin D3) 25 Mcg Tablet) 50 mcg PO DAILY [facility] Last Admin: 01/16/22 09:18 Dose: 50 mcg Documented by: CARLOS Labs CBC & Chem 7: 01/16/22 05:44 01/16/22 05:44 Labs: Laboratory Results - last 24 hr 01/16/22 01/16/22 05:44 05:44 MCV 94.4 MCH 30.5 MCHC 32.3 RDW 12.4 Plt Count 108 L MPV 10.8 Absolute Nucleated RBC 0.000 Nucleated RBC % (auto) 0.0 Anion Gap 12 Estim Creat Clear Calc 38.3 Estimated GFR > 60 Fasting Glucose 88 Calcium 8.6 Assessment and Plan (1) Closed fracture of iliac wing: Status: Acute Plan 81F presented with fall, found to have right sided rib and pelvic fractures, incidentally covid positive fall, likely mechanical complicated by right 6th rib fracture, right pelvic fractures complicated by hematoma per ortho non surgical, non weight bearing for about 6 weeks reporting pain will start oxy monitor h and h (due to hematoma), mild acute blood loss anemia PT eval - plan for snf covid isolation, unclear timeline, not candidate for antivirals, likely cause of thrombocytopenia htn currently normotensive will hold off on antihypertensives and monitor mentioned history of DM a1c 5.6, likely resolved dementia at baseline, likely alzheimers chronic ild on CT chest asymptomatic, unclear if previously documented hyperkalemia resolved, hold nicolas-I, monitor dvt prophylaxis - mechanical due to hematoma full code reason for continued hospitalization: safe dispo Quality Stroke Does the patient have a stroke diagnosis?: No VTE Prior VTE?: No VTE Risk Level:: Medical - moderate - high VTE Device Contraindication: N/A - Device Ordered VTE Drug Contraindication: Treatment Not Tolerated
--- NOTE | 2022-01-16 14:10 | MHC.CM.PN ---
CM CALLED PTS SON, TANA [phone] WHO REPORTS SALES AND SERVICE AGENT THE PT WAS LIVING WITH HIS YOUNGER BROTHER. TANA REPORTS HIS BROTHER WAS IN AN ACCIDENT AND IS NOW IN [place]. TANA REPORTS HE WAS NOT PTS [employer] PROFESSOR PRIOR TO HIS BROTHERS ACCIDENT SO HE DOES NOT KNOW ALL OF THE INFO. HE IS UNSURE WHO HER PCP IS AND IF SHE HAS HAD THE COVID VACCINES. HE REPORTS HE IS ONE OF HER HCP AGENTS AND THE OTHER IS RICHAR TURNER. HE WILL ATTEMPT TO OBTAIN A COPY AND UNDERSTANDS THAT ONE WILL BE NEEDED IF PT GOES TO A SNF HE REPORTS DESPITE PTS DEMENTIA DIAGNOSIS HE FEELS SHE COULD DO ONE. TANA IS AWARE PT IS COVID+ AND NWB. HE REPORTS HE COULD TAKE TIME OFF OF WORK TO CARE FOR HER AT HOME BUT WOULD LIKE REFERRALS MADE TO AREA SNFS TO DETERMINE IF THERE ARE ANY GOOD PLACEMENT OPTIONS FIRST. HE REPORTS HE WOULD NEED TO NOTIFY WORK TO GET TIME OFF AND WOULD LIKELY NEED UNTIL SUNDAY IF HOME IS THE PLAN. IMM DELIVERED CURRENTLY DC PLAN IS TBD HOME WITH 24/7 CARE VS SNF BLS TRANSPORT
[2022-01-16 15:00] VITALS: BP 115/63; PULSE 71; RESP 20; TEMP 37.3; O2SAT 94
[2022-01-16 18:58] VITALS: BP 114/55; PULSE 88; RESP 18; TEMP 36.7; O2SAT 97
[2022-01-16] MEDS: Mirtazapine 15 MG TABLET 45 MG PO (21:23)
[2022-01-16] MEDS: Donepezil HCl 10 MG TABLET PO (21:24)
[2022-01-17] VITALS: BP 118/77; PULSE 88; RESP 18; TEMP 36.9; O2SAT 95
[2022-01-17] MEDS: Omeprazole 20 MG CAPSULE.DR PO (05:42)
[2022-01-17 06:28] LABS: Hematocrit 31.7 % (37.0-47.0); Hemoglobin 10.3 g/dl (12.0-16.0)
[2022-01-17 07:54] VITALS: BP 122/58; PULSE 83; RESP 20; TEMP 36.6; O2SAT 96
[2022-01-17 08:37] LABS: Platelet Count 144 X10*3/uL (160-400)
[2022-01-17] MEDS: oxyCODONE HCl Immed Release 5 MG TABLET PO ×2 (11:05→18:52)
[2022-01-17] MEDS: Cholecalciferol (Vitamin D3) 25 MCG TABLET 50 MCG PO (11:05)
[2022-01-17] MEDS: Sertraline HCL 100 MG TABLET 200 MG PO (11:05)
[2022-01-17] MEDS: 0.9 % Sodium Chloride Flush 3 ML SYRINGE IVFLUSH ×3 (11:06→20:37)
[2022-01-17] MEDS: Docusate Sodium 100 MG CAPSULE PO ×2 (11:06→20:36)
[2022-01-17 11:19] VITALS: BP 112/68; PULSE 77; RESP 20; TEMP 37; O2SAT 96
--- NOTE | 2022-01-17 13:21 | P.PNIM_ITS ---
Subjective Subjective Date of Service: 01/17/22 Interval History: This history was taken in Irish from the patient. Some pain of scalp lac. Pelvic pain controlled. No cough or dyspnea. No fever. Review of Systems Review of Systems: Yes all other systems are reviewed and are negative Physical Exam Vital Signs: Vital Signs: Last Vital Signs Temp 98.6 F 01/17/22 11:19 Pulse 77 01/17/22 11:19 Resp 20 01/17/22 11:19 BP 112/68 01/17/22 11:19 Pulse Ox 96 01/17/22 11:19 BMI result Body Mass Index 22.4 Gen: in no acute distress HEENT: scalp laceration with mychal clean/dry/intact, sclera anicteric, moist mucus membranes Neck: supple Lungs: clear to auscultation bilaterally Heart: regular rate and rhythm, no murmurs Abd: soft, non-tender, non-distended Ext: no edema Skin: warm/well-perfused Neuro: alert and oriented to self, no focal findings Psych: appropriate affect Objective Data Active Medications Docusate Sodium (Docusate Sodium 100 Mg Capsule) 100 mg PO BID [facility] Last Admin: 01/17/22 11:06 Dose: 100 mg Documented by: BEATRIZ Donepezil HCl (Donepezil Hcl 10 Mg Tablet) 10 mg PO BEDTIME [facility] Last Admin: 01/16/22 21:24 Dose: 10 mg Documented by: PILLO Mirtazapine (Mirtazapine 15 Mg Tablet) 45 mg PO BEDTIME [facility] Last Admin: 01/16/22 21:23 Dose: 45 mg Documented by: PILLO Omeprazole (Omeprazole 20 Mg Capsule.Dr) 20 mg PO DAILY@0630 [facility] Last Admin: 01/17/22 05:42 Dose: 20 mg Documented by: PILLO Oxycodone HCl (Oxycodone Hcl Immed Release 5 Mg Tablet) 5 mg PO Q4H PRN PRN Reason: moderate pain Last Admin: 01/17/22 11:05 Dose: 5 mg Documented by: BEATRIZ Pharmacy Consult (Consult Rx Perform Med Rec) 1 each MISCELLANE ONCE PRN PRN Reason: Consult order Senna (Sennosides 8.6 Mg Tablet) 17.2 mg PO Q24H PRN PRN Reason: constipation Sertraline HCl (Sertraline Hcl 100 Mg Tablet) 200 mg PO DAILY [facility] Last Admin: 01/17/22 11:05 Dose: 200 mg Documented by: BEATRIZ Sodium Chloride (0.9 % Sodium Chloride Flush 3 Ml Syringe) 3 ml IVFLUSH QSHIFT [facility] Last Admin: 01/17/22 11:06 Dose: 3 ml Documented by: BEATRIZ Trazodone HCl (Trazodone Hcl 25 Mg Halftab) 25 mg PO BEDTIME PRN PRN Reason: Insomnia Last Admin: 01/15/22 20:07 Dose: 25 mg Documented by: CHEYANNE Vitamin D (Cholecalciferol (Vitamin D3) 25 Mcg Tablet) 50 mcg PO DAILY [facility] Last Admin: 01/17/22 11:05 Dose: 50 mcg Documented by: BEATRIZ Labs CBC & Chem 7: 01/17/22 06:08 01/16/22 05:44 Labs: Laboratory Results - last 24 hr 01/17/22 06:08 Plt Count 144 L D Assessment and Plan (1) Closed fracture of iliac wing: Status: Acute Plan d#4 81yo F presented after falling, admitted for R-sided rib fxs + pelvic fx with pelvic hematoma incidentally Covid-19 positive # pelvic fx (moderately displaced R pubic bone + mildly displaced posterior R iliac bone) with hematoma - prn oxycodone, per NWB non-surgical and recommend NWB x 6 wk - H+H stable - monitor for urinary retention given mass effect on bladder # R 6th + 7th rib fractures - prn oxycodone, IS # scalp laceration - remove mychal 01/20-01/23 # Covid-19 positive - maintain isolation, unclear timeline, completely asymptomatic, retest today # thrombocytopenia - resolving # HTN, hx - currently normotensive off amlodipine, continue to hold # DM2, hx - A1c only 5.6, no therapy indicated # dementia - likely at baseline, suspected Alzheimer's - continue donepezil, sertraline, mirtazapine # chronic ILD - noted on CT chest, currently without symptoms # hyperK - resolved # VTE ppx - SCDs, no heparinoids due to hematoma In my clinical judgment, the patient requires continued hospitalization for the following reasons: safe disposition, requires STR due to NWB status Quality Stroke Does the patient have a stroke diagnosis?: No VTE Prior VTE?: No VTE Risk Level:: Medical - moderate - high VTE Device Contraindication: N/A - Device Ordered VTE Drug Contraindication: Treatment Not Tolerated
[2022-01-17 15:11] VITALS: BP 115/69; PULSE 90; RESP 18; TEMP 37.5; O2SAT 95
[2022-01-17 19:00] VITALS: BP 110/74; PULSE 89; RESP 18; TEMP 37.1; O2SAT 94
[2022-01-17] MEDS: Donepezil HCl 10 MG TABLET PO (20:36)
[2022-01-17] MEDS: Mirtazapine 15 MG TABLET 45 MG PO (20:36)
[2022-01-17 23:00] VITALS: BP 116/73; PULSE 80; RESP 17; TEMP 36.6; O2SAT 95
[2022-01-18 03:00] VITALS: BP 141/69; PULSE 85; RESP 18; TEMP 37.2; O2SAT 95
[2022-01-18] MEDS: Omeprazole 20 MG CAPSULE.DR PO (05:49)
[2022-01-18 06:44] LABS: Hematocrit 29.8 % (37.0-47.0); Mean Corpuscular HGB Conc 33.6 g/dl (31.0-35.0); Mean Corpuscular Hemoglobin 31.6 pg (27.0-33.0); Mean Corpuscular Volume 94.3 fL (80.0-98.0); Mean Platelet Volume 9.9 fL (9.4-12.3); NRBC Pct Auto 0.3 /100WBC (0.0-0.2); Platelet Count 156 X10*3/uL (160-400); Red Blood Count 3.16 X10*6/uL (4.20-5.50); Red Cell Distribution Width 12.3 % (11.0-16.0); White Blood Count 6.2 X10*3/uL (4.8-10.8)
[2022-01-18 07:00] VITALS: BP 142/74; PULSE 67; RESP 20; TEMP 36.3; O2SAT 97
[2022-01-18 07:05] LABS: C Reactive Protein 3.18 mg/dL (< or = 0.50)
[2022-01-18] MEDS: Cholecalciferol (Vitamin D3) 25 MCG TABLET 50 MCG PO (10:44)
[2022-01-18] MEDS: 0.9 % Sodium Chloride Flush 3 ML SYRINGE IVFLUSH ×2 (10:44→20:03)
[2022-01-18] MEDS: Sertraline HCL 100 MG TABLET 200 MG PO (10:45)
[2022-01-18] MEDS: Docusate Sodium 100 MG CAPSULE PO ×2 (10:45→20:03)
[2022-01-18 11:00] VITALS: BP 123/62; PULSE 74; RESP 20; TEMP 36.3; O2SAT 95
[2022-01-18 11:14] LABS: COVID-19 Test Positive (Negative); IDNOW Serial# 16C4AD1C
--- NOTE | 2022-01-18 12:40 | P.PNIM_ITS ---
Subjective Subjective Date of Service: 01/18/22 Interval History: This history was taken in Maori from the patient. Rib + pelvic pain controlled. Denies fever, cough, sore throat, or dyspnea Review of Systems Review of Systems: Yes all other systems are reviewed and are negative Physical Exam Vital Signs: Vital Signs: Last Vital Signs Temp 97.4 F 01/18/22 11:00 Pulse 74 01/18/22 11:00 Resp 20 01/18/22 11:00 BP 123/62 01/18/22 11:00 Pulse Ox 95 01/18/22 11:00 BMI result Body Mass Index 22.4 Gen: in no acute distress HEENT: scalp laceration with mychal clean/dry/intact, sclera anicteric, moist mucus membranes Neck: supple Lungs: clear to auscultation bilaterally Heart: regular rate and rhythm, no murmurs Abd: soft, non-tender, non-distended Ext: no edema Skin: warm/well-perfused Neuro: alert and oriented to self, no focal findings Psych: appropriate affect Objective Data Active Medications Docusate Sodium (Docusate Sodium 100 Mg Capsule) 100 mg PO BID [facility] Last Admin: 01/18/22 10:45 Dose: 100 mg Documented by: BEATRIZ Donepezil HCl (Donepezil Hcl 10 Mg Tablet) 10 mg PO BEDTIME [facility] Last Admin: 01/17/22 20:36 Dose: 10 mg Documented by: ELISEO Mirtazapine (Mirtazapine 15 Mg Tablet) 45 mg PO BEDTIME [facility] Last Admin: 01/17/22 20:36 Dose: 45 mg Documented by: ELISEO Omeprazole (Omeprazole 20 Mg Capsule.Dr) 20 mg PO DAILY@0630 [facility] Last Admin: 01/18/22 05:49 Dose: 20 mg Documented by: ELISEO Oxycodone HCl (Oxycodone Hcl Immed Release 5 Mg Tablet) 5 mg PO Q4H PRN PRN Reason: moderate pain Last Admin: 01/17/22 18:52 Dose: 5 mg Documented by: BEATRIZ Pharmacy Consult (Consult Rx Perform Med Rec) 1 each MISCELLANE ONCE PRN PRN Reason: Consult order Senna (Sennosides 8.6 Mg Tablet) 17.2 mg PO Q24H PRN PRN Reason: constipation Sertraline HCl (Sertraline Hcl 100 Mg Tablet) 200 mg PO DAILY [facility] Last Admin: 01/18/22 10:45 Dose: 200 mg Documented by: BEATRIZ Sodium Chloride (0.9 % Sodium Chloride Flush 3 Ml Syringe) 3 ml IVFLUSH QSHIFT [facility] Last Admin: 01/18/22 10:44 Dose: 3 ml Documented by: BEATRIZ Trazodone HCl (Trazodone Hcl 25 Mg Halftab) 25 mg PO BEDTIME PRN PRN Reason: Insomnia Last Admin: 01/15/22 20:07 Dose: 25 mg Documented by: CHEYANNE Vitamin D (Cholecalciferol (Vitamin D3) 25 Mcg Tablet) 50 mcg PO DAILY [facility] Last Admin: 01/18/22 10:44 Dose: 50 mcg Documented by: BEATRIZ Labs CBC & Chem 7: 01/18/22 06:22 01/16/22 05:44 Labs: Laboratory Results - last 24 hr 01/18/22 01/18/22 01/18/22 06:22 06:22 10:50 MCV 94.3 MCH 31.6 MCHC 33.6 RDW 12.3 Plt Count 156 L MPV 9.9 Absolute Nucleated RBC 0.020 H Nucleated RBC % (auto) 0.3 H C-Reactive Protein 3.18 H COVID-19 (DEANGELO) Positive A COVID-19 Clin Com See Note Assessment and Plan (1) Closed fracture of iliac wing: Status: Acute Plan d#5 81yo F presented after falling, admitted for R-sided rib fxs + pelvic fx with pelvic hematoma incidentally Covid-19 positive # pelvic fx (moderately displaced R pubic bone + mildly displaced posterior R iliac bone) with hematoma - prn oxycodone, per Orthopedics, non-surgical and recommend NWB x 6 wk - H+H stable - monitor for urinary retention given mass effect on bladder # R 6th + 7th rib fractures - prn oxycodone, IS # scalp laceration - remove mychal 01/20-01/23 # Covid-19 positive - maintain isolation, unclear timeline, completely asymptomatic, still positive today # thrombocytopenia - resolving # HTN, hx - currently normotensive off amlodipine, continue to hold # DM2, hx - A1c only 5.6, no therapy indicated # dementia - likely at baseline, suspected Alzheimer's - continue donepezil, sertraline, mirtazapine # chronic ILD - noted on CT chest, currently without symptoms # hyperK - resolved # VTE ppx - SCDs, no heparinoids due to hematoma In my clinical judgment, the patient requires continued hospitalization for the following reasons: safe disposition, requires STR due to NWB status Quality Stroke Does the patient have a stroke diagnosis?: No VTE Prior VTE?: No VTE Risk Level:: Medical - moderate - high VTE Device Contraindication: N/A - Device Ordered VTE Drug Contraindication: Treatment Not Tolerated
--- NOTE | 2022-01-18 14:41 | MHC.CM.PN ---
Female 81 s/p fall covid+. Patient is NWB [id number]. She is day 5, from 1st covid + test. Referrals have been sent. She has a few facilities following for covid recovered status.
[2022-01-18 14:57] VITALS: BP 114/59; PULSE 85; RESP 18; TEMP 37.8; O2SAT 95
[2022-01-18 18:56] VITALS: BP 130/76; PULSE 88; RESP 18; TEMP 36.7; O2SAT 97
[2022-01-18] MEDS: Mirtazapine 15 MG TABLET 45 MG PO (20:02)
[2022-01-18] MEDS: Donepezil HCl 10 MG TABLET PO (20:02)
[2022-01-18 23:32] VITALS: BP 126/68; PULSE 77; RESP 18; TEMP 37.1; O2SAT 96
[2022-01-19 03:21] VITALS: BP 132/65; PULSE 72; RESP 18; TEMP 37.1; O2SAT 97
[2022-01-19] MEDS: Omeprazole 20 MG CAPSULE.DR PO (05:58)
[2022-01-19] MEDS: oxyCODONE HCl Immed Release 5 MG TABLET PO (06:12)
[2022-01-19 07:25] VITALS: BP 103/56; PULSE 73; RESP 18; TEMP 36.6; O2SAT 95
[2022-01-19 10:58] VITALS: BP 117/60; PULSE 75; RESP 18; TEMP 36.3; O2SAT 97
[2022-01-19] MEDS: Cholecalciferol (Vitamin D3) 25 MCG TABLET 50 MCG PO (11:15)
[2022-01-19] MEDS: Sertraline HCL 100 MG TABLET 200 MG PO (11:15)
[2022-01-19] MEDS: Docusate Sodium 100 MG CAPSULE PO ×2 (11:16→19:49)
[2022-01-19] MEDS: 0.9 % Sodium Chloride Flush 3 ML SYRINGE IVFLUSH ×2 (11:16→16:16)
[2022-01-19] MEDS: Lidocaine 4 % Patch ADH..PATCH 1 PATCH TRANSDERMA (11:17)
--- NOTE | 2022-01-19 12:31 | HO.PM.IMPN ---
Subjective Subjective Date of Service: 01/19/22 Interval History: This history was taken in Tajik from the patient. C/o R-sided rib pain. Mild pelvic pain. No dyspnea. No cough. Review of Systems Review of Systems: Yes all other systems are reviewed and are negative Physical Exam Vital Signs: Vital Signs: Last Vital Signs Temp 97.4 F 01/19/22 10:58 Pulse 75 01/19/22 10:58 Resp 18 01/19/22 10:58 BP 117/60 01/19/22 10:58 Pulse Ox 97 01/19/22 10:58 BMI result Body Mass Index 22.4 Gen: in no acute distress HEENT: scalp laceration with mychal clean/dry/intact, sclera anicteric, moist mucus membranes Neck: supple Lungs: clear to auscultation bilaterally Heart: regular rate and rhythm, no murmurs Abd: soft, non-tender, non-distended Ext: no edema, R-sided chest wall tenderness Skin: warm/well-perfused Neuro: alert and oriented to self, no focal findings Psych: appropriate affect Objective Data Active Medications Docusate Sodium (Docusate Sodium 100 Mg Capsule) 100 mg PO BID [facility] Last Admin: 01/19/22 11:16 Dose: 100 mg Documented by: BERNARDA Donepezil HCl (Donepezil Hcl 10 Mg Tablet) 10 mg PO BEDTIME [facility] Last Admin: 01/18/22 20:02 Dose: 10 mg Documented by: ENRIKE Lidocaine (Lidocaine 4 % Patch Adh..Patch) 1 patch TRANSDERMA DAILY [facility]; Protocol Last Admin: 01/19/22 11:17 Dose: 1 patch Documented by: BERNARDA Mirtazapine (Mirtazapine 15 Mg Tablet) 45 mg PO BEDTIME [facility] Last Admin: 01/18/22 20:02 Dose: 45 mg Documented by: ENRIKE Omeprazole (Omeprazole 20 Mg Capsule.) 20 mg PO DAILY@0630 [facility] Last Admin: 01/19/22 05:58 Dose: 20 mg Documented by: ENRIKE Oxycodone HCl (Oxycodone Hcl Immed Release 5 Mg Tablet) 5 mg PO Q4H PRN PRN Reason: moderate pain Last Admin: 01/19/22 06:12 Dose: 5 mg Documented by: ENRIKE Pharmacy Consult (Consult Rx Perform Med Rec) 1 each MISCELLANE ONCE PRN PRN Reason: Consult order Senna (Sennosides 8.6 Mg Tablet) 17.2 mg PO Q24H PRN PRN Reason: constipation Sertraline HCl (Sertraline Hcl 100 Mg Tablet) 200 mg PO DAILY [facility] Last Admin: 01/19/22 11:15 Dose: 200 mg Documented by: BERNARDA Sodium Chloride (0.9 % Sodium Chloride Flush 3 Ml Syringe) 3 ml IVFLUSH QSHIFT [facility] Last Admin: 01/19/22 11:16 Dose: 3 ml Documented by: BERNARDA Trazodone HCl (Trazodone Hcl 25 Mg Halftab) 25 mg PO BEDTIME PRN PRN Reason: Insomnia Last Admin: 01/15/22 20:07 Dose: 25 mg Documented by: CHEYANNE Vitamin D (Cholecalciferol (Vitamin D3) 25 Mcg Tablet) 50 mcg PO DAILY [facility] Last Admin: 01/19/22 11:15 Dose: 50 mcg Documented by: BERNARDA Labs CBC & Chem 7: 01/18/22 06:22 01/16/22 05:44 Assessment and Plan (1) Closed fracture of iliac wing: Status: Acute Plan d#6 81yo F presented after falling, admitted for R-sided rib fxs + pelvic fx with pelvic hematoma incidentally Covid-19 positive but completely asymptomatic # pelvic fx (moderately displaced R pubic bone + mildly displaced posterior R iliac bone) with hematoma - prn oxycodone, per Orthopedics, non-surgical and recommend NWB x 6 wk - H+H stable - monitor for urinary retention given mass effect on bladder # R 6th + 7th rib fractures - prn oxycodone, IS, add lidocaine patch # scalp laceration - remove mychal sometime between 01/20 and 01/23/22 # Covid-19 positive - maintain isolation, unclear timeline, completely asymptomatic, still positive 01/18/22; retest 01/20/22 # thrombocytopenia - resolving # HTN, hx - currently normotensive off amlodipine, continue to hold # DM2, hx - A1c only 5.6, no therapy indicated # dementia - likely at baseline, suspected Alzheimer's - continue donepezil, sertraline, mirtazapine # chronic ILD - noted on CT chest, currently without symptoms # hyperK - resolved # VTE ppx - SCDs, no heparinoids due to hematoma In my clinical judgment, the patient requires continued hospitalization for the following reasons: safe disposition, requires STR due to NWB status Quality Stroke Does the patient have a stroke diagnosis?: No VTE Prior VTE?: No VTE Risk Level:: Medical - moderate - high VTE Device Contraindication: N/A - Device Ordered VTE Drug Contraindication: Treatment Not Tolerated
[2022-01-19 15:04] VITALS: BP 128/66; PULSE 76; RESP 16; TEMP 36.7; O2SAT 96
[2022-01-19 19:10] VITALS: BP 141/63; PULSE 74; RESP 18; TEMP 36.8; O2SAT 97
[2022-01-19] MEDS: Mirtazapine 15 MG TABLET 45 MG PO (19:49)
[2022-01-19] MEDS: Donepezil HCl 10 MG TABLET PO (19:49)
[2022-01-19 23:12] VITALS: BP 129/85; PULSE 65; RESP 18; TEMP 36.4; O2SAT 96
[2022-01-20] VITALS (7 sets, daily range): BP systolic 106–144; BP diastolic 59–76; PULSE 68–96; RESP 17–18; TEMP 36.2–37.3; O2SAT 94–99
[2022-01-20] MEDS: 0.9 % Sodium Chloride Flush 3 ML SYRINGE IVFLUSH ×4 (00:26→20:48)
[2022-01-20] MEDS: Omeprazole 20 MG CAPSULE.DR PO (06:29)
[2022-01-20 07:20] LABS: C Reactive Protein 3.98 mg/dL (< or = 0.50)
[2022-01-20] MEDS: Lidocaine 4 % Patch ADH..PATCH 1 PATCH TRANSDERMA (10:41)
[2022-01-20] MEDS: oxyCODONE HCl Immed Release 5 MG TABLET PO ×3 (10:42→20:21)
[2022-01-20] MEDS: Sertraline HCL 100 MG TABLET 200 MG PO (10:43)
[2022-01-20] MEDS: Docusate Sodium 100 MG CAPSULE PO ×2 (10:43→20:48)
[2022-01-20] MEDS: Cholecalciferol (Vitamin D3) 25 MCG TABLET 50 MCG PO (10:43)
--- NOTE | 2022-01-20 12:02 | MHC.CM.PN ---
PT is recommending STR; Patient is Covid positive and just tested positive again on 01/18/22. [facility] is following.
--- NOTE | 2022-01-20 12:43 | HO.PM.IMPN ---
Subjective Subjective Date of Service: 01/20/22 Interval History: f/u on pelvic fx, covid +, rib fractures interval history: no trouble breathing, pain in the rig Review of Systems no chest pain no sob Physical Exam Vital Signs: Vital Signs: Last Vital Signs Temp 97.3 F 01/20/22 11:18 Pulse 82 01/20/22 11:18 Resp 18 01/20/22 11:18 BP 119/60 01/20/22 11:18 Pulse Ox 97 01/20/22 11:18 BMI result Body Mass Index 22.4 Const: Other: Gen: in no acute distress HEENT: scalp laceration with mychal clean/dry/intact, sclera anicteric, moist mucus membranes Neck: supple Lungs: clear to auscultation bilaterally Heart: regular rate and rhythm, no murmurs Abd: soft, non-tender, non-distended Ext: no edema, R-sided chest wall tenderness Skin: warm/well-perfused Neuro: alert and oriented to self, no focal findings Psych: appropriate affect Objective Data Active Medications Docusate Sodium (Docusate Sodium 100 Mg Capsule) 100 mg PO BID [facility] Last Admin: 01/20/22 10:43 Dose: 100 mg Documented by: BERNARDA Donepezil HCl (Donepezil Hcl 10 Mg Tablet) 10 mg PO BEDTIME [facility] Last Admin: 01/19/22 19:49 Dose: 10 mg Documented by: REUBEN Lidocaine (Lidocaine 4 % Patch Adh..Patch) 1 patch TRANSDERMA DAILY [facility]; Protocol Last Admin: 01/20/22 10:41 Dose: 1 patch Documented by: BERNARDA Mirtazapine (Mirtazapine 15 Mg Tablet) 45 mg PO BEDTIME [facility] Last Admin: 01/19/22 19:49 Dose: 45 mg Documented by: REUBEN Omeprazole (Omeprazole 20 Mg Capsule.Dr) 20 mg PO DAILY@0630 [facility] Last Admin: 01/20/22 06:29 Dose: 20 mg Documented by: CHEYANNE Oxycodone HCl (Oxycodone Hcl Immed Release 5 Mg Tablet) 5 mg PO Q4H PRN PRN Reason: Pain, Severe (Pain Scale 7-10) Last Admin: 01/20/22 10:42 Dose: 5 mg Documented by: BERNARDA Pharmacy Consult (Consult Rx Perform Med Rec) 1 each MISCELLANE ONCE PRN PRN Reason: Consult order Senna (Sennosides 8.6 Mg Tablet) 17.2 mg PO Q24H PRN PRN Reason: constipation Sertraline HCl (Sertraline Hcl 100 Mg Tablet) 200 mg PO DAILY [facility] Last Admin: 01/20/22 10:43 Dose: 200 mg Documented by: BERNARDA Sodium Chloride (0.9 % Sodium Chloride Flush 3 Ml Syringe) 3 ml IVFLUSH QSHIFT [facility] Last Admin: 01/20/22 10:44 Dose: 3 ml Documented by: BERNARDA Trazodone HCl (Trazodone Hcl 25 Mg Halftab) 25 mg PO BEDTIME PRN PRN Reason: Insomnia Last Admin: 01/15/22 20:07 Dose: 25 mg Documented by: CHEYANNE Vitamin D (Cholecalciferol (Vitamin D3) 25 Mcg Tablet) 50 mcg PO DAILY [facility] Last Admin: 01/20/22 10:43 Dose: 50 mcg Documented by: BERNARDA Labs CBC & Chem 7: 01/18/22 06:22 01/16/22 05:44 Labs: Laboratory Results - last 24 hr 01/20/22 06:46 C-Reactive Protein 3.98 H Assessment and Plan (1) Closed fracture of iliac wing: Status: Acute Plan d#7 81yo F presented after falling, admitted for R-sided rib fxs + pelvic fx with pelvic hematoma incidentally Covid-19 positive but completely asymptomatic # pelvic fx (moderately displaced R pubic bone + mildly displaced posterior R iliac bone) with hematoma - prn oxycodone, per Orthopedics, non-surgical and recommend NWB x 6 wk - H+H stable - monitor for urinary retention given mass effect on bladder # R 6th + 7th rib fractures - prn oxycodone, Incentive Spirometry, lidocaine patch # scalp laceration - remove mychal sometime between 01/20 and 01/23/22 # Covid-19 positive - maintain isolation, unclear timeline, completely asymptomatic, still positive 01/18/22; retest 01/20/22 # thrombocytopenia - resolving # HTN, hx - currently normotensive off amlodipine, continue to hold # DM2, hx - A1c only 5.6, no therapy indicated # dementia - likely at baseline, suspected Alzheimer's - continue donepezil, sertraline, mirtazapine # chronic ILD - noted on CT chest, currently without symptoms # hyperK - resolved # VTE ppx - SCDs, no heparinoids due to hematoma Need for inpatient: the patient requires continued hospitalization for the following reasons: safe disposition, requires STR due to NWB status Quality Stroke Does the patient have a stroke diagnosis?: No VTE Prior VTE?: No VTE Risk Level:: Medical - moderate - high VTE Device Contraindication: N/A - Device Ordered VTE Drug Contraindication: Treatment Not Tolerated
[2022-01-20 15:20] LABS: COVID-19 Test Positive (Negative); IDNOW Serial# 55D5AD1C
[2022-01-20] MEDS: Mirtazapine 15 MG TABLET 45 MG PO (20:48)
[2022-01-20] MEDS: Donepezil HCl 10 MG TABLET PO (20:48)
[2022-01-21 04:00] VITALS: BP 118/68; PULSE 73; RESP 20; TEMP 36.7; O2SAT 97
[2022-01-21 07:54] VITALS: BP 118/77; PULSE 81; RESP 20; TEMP 37.1; O2SAT 97
[2022-01-21] MEDS: 0.9 % Sodium Chloride Flush 3 ML SYRINGE IVFLUSH ×3 (08:55→21:42)
[2022-01-21] MEDS: Docusate Sodium 100 MG CAPSULE PO ×2 (08:56→21:41)
[2022-01-21] MEDS: Cholecalciferol (Vitamin D3) 25 MCG TABLET 50 MCG PO (08:57)
[2022-01-21] MEDS: Sertraline HCL 100 MG TABLET 200 MG PO (08:57)
[2022-01-21] MEDS: Lidocaine 4 % Patch ADH..PATCH 1 PATCH TRANSDERMA (08:57)
[2022-01-21] MEDS: oxyCODONE HCl Immed Release 5 MG TABLET PO ×3 (09:09→21:41)
--- NOTE | 2022-01-21 10:10 | P.PNIM_ITS ---
Subjective Subjective Date of Service: 01/21/22 Interval History: f/u on pelvic fx, covid +, rib fractures interval history: no sob, pain is better Review of Systems no chest pain no sob Physical Exam Vital Signs: Vital Signs: Last Vital Signs Temp 98.8 F 01/21/22 07:54 Pulse 81 01/21/22 07:54 Resp 20 01/21/22 07:54 BP 118/77 01/21/22 07:54 Pulse Ox 97 01/21/22 07:54 BMI result Body Mass Index 22.4 Const: Other: Gen: in no acute distress HEENT: scalp laceration with mychal clean/dry/intact, sclera anicteric, moist mucus membranes Neck: supple Lungs: clear to auscultation bilaterally Heart: regular rate and rhythm, no murmurs Abd: soft, non-tender, non-distended Ext: no edema, R-sided chest wall tenderness Skin: warm/well-perfused Neuro: alert and oriented to self, no focal findings Psych: appropriate affect Objective Data Active Medications Docusate Sodium (Docusate Sodium 100 Mg Capsule) 100 mg PO BID [facility] Last Admin: 01/21/22 08:56 Dose: 100 mg Documented by: ESTELA Donepezil HCl (Donepezil Hcl 10 Mg Tablet) 10 mg PO BEDTIME [facility] Last Admin: 01/20/22 20:48 Dose: 10 mg Documented by: CATRACHO Lidocaine (Lidocaine 4 % Patch Adh..Patch) 1 patch TRANSDERMA DAILY [facility]; Protocol Last Admin: 01/21/22 08:57 Dose: 1 patch Documented by: ESTELA Mirtazapine (Mirtazapine 15 Mg Tablet) 45 mg PO BEDTIME [facility] Last Admin: 01/20/22 20:48 Dose: 45 mg Documented by: CATRACHO Omeprazole (Omeprazole 20 Mg Capsule.Dr) 20 mg PO DAILY@0630 [facility] Last Admin: 01/21/22 06:12 Dose: Not Given Documented by: CATRACHO Non-Admin Reason: Patient Asleep Oxycodone HCl (Oxycodone Hcl Immed Release 5 Mg Tablet) 5 mg PO Q4H PRN PRN Reason: Pain, Severe (Pain Scale 7-10) Last Admin: 01/21/22 09:09 Dose: 5 mg Documented by: ESTELA Pharmacy Consult (Consult Rx Perform Med Rec) 1 each MISCELLANE ONCE PRN PRN Reason: Consult order Senna (Sennosides 8.6 Mg Tablet) 17.2 mg PO Q24H PRN PRN Reason: constipation Sertraline HCl (Sertraline Hcl 100 Mg Tablet) 200 mg PO DAILY [facility] Last Admin: 01/21/22 08:57 Dose: 200 mg Documented by: ESTELA Sodium Chloride (0.9 % Sodium Chloride Flush 3 Ml Syringe) 3 ml IVFLUSH QSHIFT [facility] Last Admin: 01/21/22 08:55 Dose: 3 ml Documented by: ESTELA Trazodone HCl (Trazodone Hcl 25 Mg Halftab) 25 mg PO BEDTIME PRN PRN Reason: Insomnia Last Admin: 01/15/22 20:07 Dose: 25 mg Documented by: CHEYANNE Vitamin D (Cholecalciferol (Vitamin D3) 25 Mcg Tablet) 50 mcg PO DAILY [facility] Last Admin: 01/21/22 08:57 Dose: 50 mcg Documented by: ESTELA Labs CBC & Chem 7: 01/18/22 06:22 01/16/22 05:44 Labs: Laboratory Results - last 24 hr 01/20/22 14:51 COVID-19 (DEANGELO) Positive A COVID-19 Clin Com See Note Assessment and Plan (1) Closed fracture of iliac wing: Status: Acute Plan D#8 81yo F presented after falling, admitted for R-sided rib fxs + pelvic fx with pelvic hematoma incidentally Covid-19 positive but completely asymptomatic # pelvic fx (moderately displaced R pubic bone + mildly displaced posterior R iliac bone) with hematoma - prn oxycodone, per Orthopedics, non-surgical and recommend NWB x 6 wk - H+H stable - monitor for urinary retention given mass effect on bladder # R 6th + 7th rib fractures - prn oxycodone, Incentive Spirometry, lidocaine patch # scalp laceration - remove mychal sometime between 01/20 and 01/23/22 # Covid-19 positive - maintain isolation, unclear timeline, completely asymptomatic, still positive 01/18/22; retest 01/20/22 # thrombocytopenia - resolving # HTN, hx - currently normotensive off amlodipine, continue to hold # DM2, hx - A1c only 5.6, no therapy indicated # dementia - likely at baseline, suspected Alzheimer's - continue donepezil, sertraline, mirtazapine # chronic ILD - noted on CT chest, currently without symptoms # hyperK - resolved # VTE ppx - SCDs, no heparinoids due to hematoma Need for inpatient: the patient requires continued hospitalization for the following reasons: safe disposition, requires STR due to NWB status Quality Stroke Does the patient have a stroke diagnosis?: No VTE Prior VTE?: No VTE Risk Level:: Medical - moderate - high VTE Device Contraindication: N/A - Device Ordered VTE Drug Contraindication: Treatment Not Tolerated
[2022-01-21 11:35] VITALS: BP 92/61; PULSE 90; RESP 20; TEMP 37; O2SAT 97
[2022-01-21 15:01] VITALS: BP 129/68; PULSE 78; RESP 18; TEMP 36.4; O2SAT 92
[2022-01-21 19:02] VITALS: BP 115/59; PULSE 98; RESP 18; TEMP 37.8; O2SAT 97
[2022-01-21] MEDS: Mirtazapine 15 MG TABLET 45 MG PO (21:41)
[2022-01-21] MEDS: traZODone HCL 25 MG HALFTAB PO (21:41)
[2022-01-21] MEDS: Donepezil HCl 10 MG TABLET PO (21:41)
[2022-01-21 23:08] VITALS: BP 143/74; PULSE 72; RESP 18; TEMP 36.9; O2SAT 98
[2022-01-22] VITALS (7 sets, daily range): BP systolic 98–148; BP diastolic 51–71; PULSE 67–91; RESP 16–20; TEMP 36.5–37.1; O2SAT 96–97
--- NOTE | 2022-01-22 08:12 | P.PNIM_ITS ---
Subjective Subjective Date of Service: 01/23/22 Interval History: f/u on pelvic fx, covid +, rib fracture Review of Systems denies any new complaint chest pain or shortness of breath or abdominal pain. Physical Exam Vital Signs: Vital Signs: Last Vital Signs Temp 98.6 F 01/22/22 07:41 Pulse 72 01/22/22 07:41 Resp 20 01/22/22 07:41 BP 118/60 01/22/22 07:41 Pulse Ox 96 01/22/22 07:41 BMI result Body Mass Index 22.4 HEENT: scalp laceration with mychal clean/dry/intact, sclera anicteric, moist mucus membranes Appearance: Alert.? Oriented X3.? not in distress.? cvs: rrr, [id number] res: clear to auscultation ,no rhonchii or wheezing abd: no rebound or guarding ,nt, bs present. ext pulses present , no cyanosis ,Gait well balanced well coordinated. neuro: axo3 , nonfocal. Objective Data Active Medications Docusate Sodium (Docusate Sodium 100 Mg Capsule) 100 mg PO BID [facility] Last Admin: 01/21/22 21:41 Dose: 100 mg Documented by: CATRACHO Donepezil HCl (Donepezil Hcl 10 Mg Tablet) 10 mg PO BEDTIME [facility] Last Admin: 01/21/22 21:41 Dose: 10 mg Documented by: CATRACHO Lidocaine (Lidocaine 4 % Patch Adh..Patch) 1 patch TRANSDERMA DAILY [facility]; [facility]jit [facility] Last Admin: 01/21/22 08:57 Dose: 1 patch Documented by: ESTELA Mirtazapine (Mirtazapine 15 Mg Tablet) 45 mg PO BEDTIME [facility] Last Admin: 01/21/22 21:41 Dose: 45 mg Documented by: CATRACHO Omeprazole (Omeprazole 20 Mg Capsule.Dr) 20 mg PO DAILY@0630 [facility] Last Admin: 01/22/22 06:10 Dose: Not Given Documented by: CATRACHO Non-Admin Reason: Patient Refused Oxycodone HCl (Oxycodone Hcl Immed Release 5 Mg Tablet) 5 mg PO Q4H PRN PRN Reason: Pain, Severe (Pain Scale 7-10) Last Admin: 01/21/22 21:41 Dose: 5 mg Documented by: CATRACHO Pharmacy Consult (Consult Rx Perform Med Rec) 1 each MISCELLANE ONCE PRN PRN Reason: Consult order Senna (Sennosides 8.6 Mg Tablet) 17.2 mg PO Q24H PRN PRN Reason: constipation Sertraline HCl (Sertraline Hcl 100 Mg Tablet) 200 mg PO DAILY [facility] Last Admin: 01/21/22 08:57 Dose: 200 mg Documented by: ESTELA Sodium Chloride (0.9 % Sodium Chloride Flush 3 Ml Syringe) 3 ml IVFLUSH QSHIFT [facility] Last Admin: 01/21/22 21:42 Dose: 3 ml Documented by: CATRACHO Trazodone HCl (Trazodone Hcl 25 Mg Halftab) 25 mg PO BEDTIME PRN PRN Reason: Insomnia Last Admin: 01/21/22 21:41 Dose: 25 mg Documented by: CATRACHO Vitamin D (Cholecalciferol (Vitamin D3) 25 Mcg Tablet) 50 mcg PO DAILY [facility] Last Admin: 01/21/22 08:57 Dose: 50 mcg Documented by: ESTELA Labs CBC & Chem 7: 01/18/22 06:22 01/16/22 05:44 Assessment and Plan (1) Closed fracture of iliac wing: Status: Acute Plan D#8 81yo F presented after falling, admitted for R-sided rib fxs + pelvic fx with pelvic hematoma incidentally Covid-19 positive but completely asymptomatic pelvic fx (moderately displaced R pubic bone + mildly displaced posterior R iliac bone) with hematoma - prn oxycodone, per Orthopedics, non-surgical and recommend NWB x 6 wk - H+H stable - monitor for urinary retention given mass effect on bladder R 6th + 7th rib fractures - prn oxycodone, Incentive Spirometry, lidocaine patch scalp laceration - remove mychal sometime between 01/20 and 01/23/22 Covid-19 positive - maintain isolation, unclear timeline, completely asymptomatic, still positive 01/18/22; retest 01/20/22 thrombocytopenia - resolving HTN, hx - currently normotensive off amlodipine, continue to hold DM2, hx - A1c only 5.6, no therapy indicated dementia - likely at baseline, suspected Alzheimer's - continue donepezil, sertraline, mirtazapine chronic ILD - noted on CT chest, currently without symptoms hyperK - resolved VTE ppx - SCDs, no heparinoids due to hematoma Need for inpatient: the patient requires continued hospitalization for the following reasons: safe disposition, requires STR due to NWB status Quality Stroke Does the patient have a stroke diagnosis?: No VTE Prior VTE?: No VTE Risk Level:: Medical - moderate - high VTE Device Contraindication: N/A - Device Ordered VTE Drug Contraindication: Treatment Not Tolerated
[2022-01-22] MEDS: Lidocaine 4 % Patch ADH..PATCH 1 PATCH TRANSDERMA (09:17)
[2022-01-22] MEDS: 0.9 % Sodium Chloride Flush 3 ML SYRINGE IVFLUSH (09:18)
[2022-01-22] MEDS: oxyCODONE HCl Immed Release 5 MG TABLET PO ×3 (09:21→22:22)
[2022-01-22] MEDS: Cholecalciferol (Vitamin D3) 25 MCG TABLET 50 MCG PO (09:22)
[2022-01-22] MEDS: Docusate Sodium 100 MG CAPSULE PO ×2 (09:22→22:08)
[2022-01-22] MEDS: Sertraline HCL 100 MG TABLET 200 MG PO (09:22)
[2022-01-22] MEDS: Mirtazapine 15 MG TABLET 45 MG PO (22:08)
[2022-01-22] MEDS: Donepezil HCl 10 MG TABLET PO (22:08)
[2022-01-22] MEDS: traZODone HCL 25 MG HALFTAB PO (22:08)
[2022-01-23] VITALS (9 sets, daily range): BP systolic 79–154; BP diastolic 55–72; PULSE 61–95; RESP 12–18; TEMP 36.1–37; O2SAT 95–97
[2022-01-23] MEDS: Omeprazole 20 MG CAPSULE.DR PO (06:42)
--- NOTE | 2022-01-23 07:54 | P.PNIM_ITS ---
Subjective Subjective Date of Service: 01/23/22 Interval History: f/u on pelvic fx, covid +, rib fracture possibel orthostasis -blood pressures flactuating Review of Systems Denies any new symptoms, denies any chest pain or shortness of breath or abdominal pain or fever or chills or cough or phlegm nausea vomiting. Physical Exam Vital Signs: Vital Signs: Last Vital Signs Temp 98.1 F 01/23/22 07:32 Pulse 95 01/23/22 07:32 Resp 12 01/23/22 07:32 BP 119/55 L 01/23/22 07:32 Pulse Ox 96 01/23/22 07:32 BMI result Body Mass Index 22.4 HEENT: scalp laceration with mychal clean/dry/intact, sclera anicteric, moist mucus membranes ? Appearance: Alert.? Oriented X3.? not in distress.? cvs: rrr, [id number] res: clear to auscultation ,no rhonchii or wheezing abd: no rebound or guarding ,nt, bs present. ext pulses present , no cyanosis ,Gait well balanced well coordinated. neuro: axo3 , nonfocal. Objective Data Active Medications Docusate Sodium (Docusate Sodium 100 Mg Capsule) 100 mg PO BID [facility] Last Admin: 01/22/22 22:08 Dose: 100 mg Documented by: JASON Donepezil HCl (Donepezil Hcl 10 Mg Tablet) 10 mg PO BEDTIME [facility] Last Admin: 01/22/22 22:08 Dose: 10 mg Documented by: JASON Lidocaine (Lidocaine 4 % Patch Adh..Patch) 1 patch TRANSDERMA DAILY [facility]; Protocol Last Admin: 01/22/22 09:17 Dose: 1 patch Documented by: ESTELA Mirtazapine (Mirtazapine 15 Mg Tablet) 45 mg PO BEDTIME [facility] Last Admin: 01/22/22 22:08 Dose: 45 mg Documented by: JASON Omeprazole (Omeprazole 20 Mg Capsule.) 20 mg PO DAILY@0630 [facility] Last Admin: 01/23/22 06:42 Dose: 20 mg Documented by: JASON Oxycodone HCl (Oxycodone Hcl Immed Release 5 Mg Tablet) 5 mg PO Q4H PRN PRN Reason: Pain, Severe (Pain Scale 7-10) Last Admin: 01/22/22 22:22 Dose: 5 mg Documented by: JASON Pharmacy Consult (Consult Rx Perform Med Rec) 1 each MISCELLANE ONCE PRN PRN Reason: Consult order Senna (Sennosides 8.6 Mg Tablet) 17.2 mg PO Q24H PRN PRN Reason: constipation Sertraline HCl (Sertraline Hcl 100 Mg Tablet) 200 mg PO DAILY [facility] Last Admin: 01/22/22 09:22 Dose: 200 mg Documented by: ESTELA Sodium Chloride (0.9 % Sodium Chloride Flush 3 Ml Syringe) 3 ml IVFLUSH QSHIFT [facility] Last Admin: 01/23/22 00:00 Dose: 3 ml Documented by: JASON Trazodone HCl (Trazodone Hcl 25 Mg Halftab) 25 mg PO BEDTIME PRN PRN Reason: Insomnia Last Admin: 01/22/22 22:08 Dose: 25 mg Documented by: JASON Vitamin D (Cholecalciferol (Vitamin D3) 25 Mcg Tablet) 50 mcg PO DAILY [facility] Last Admin: 01/22/22 09:22 Dose: 50 mcg Documented by: ESTELA Labs CBC & Chem 7: 01/18/22 06:22 01/16/22 05:44 Assessment and Plan (1) HTN (hypertension): Status: Acute (2) Orthostasis: Status: Acute Plan day#10 81yo F presented after falling, admitted for R-sided rib fxs + pelvic fx with pelvic hematoma incidentally Covid-19 positive but completely asymptomatic ?pelvic fx (moderately displaced R pubic bone + mildly displaced posterior R iliac bone) with hematoma - prn oxycodone, per Orthopedics, non-surgical and recommend NWB x 6 wk - H+H stable - monitor for urinary retention given mass effect on bladder ?R 6th + 7th rib fractures - prn oxycodone, Incentive Spirometry,? lidocaine patch ?scalp laceration - remove mychal sometime between 01/20 and 01/23/22 ?Covid-19 positive - maintain isolation, unclear timeline, completely asymptomatic, still positive 01/18/22; retest 01/20/22 ?thrombocytopenia - resolving ?HTN, hx - currently normotensive off amlodipine, continue to hold ?DM2, hx - A1c only 5.6, no therapy indicated ?dementia - likely at baseline, suspected Alzheimer's - continue donepezil, sertraline, mirtazapine ?chronic ILD - noted on CT chest, currently without symptoms ?hyperK - resolved possible orthostasis: falls with sitting moniter blood pressure daniel stocking, added gentle hydration Patient is asymptomatic, no fevers monitor blood pressure closely ?VTE ppx - SCDs, no heparinoids due to hematoma Need for inpatient:? the patient requires continued hospitalization for the following reasons: safe disposition, requires STR due to NWB status Quality Stroke Does the patient have a stroke diagnosis?: No VTE Prior VTE?: No VTE Risk Level:: Medical - moderate - high VTE Device Contraindication: N/A - Device Ordered VTE Drug Contraindication: Treatment Not Tolerated
[2022-01-23] MEDS: 0.9 % Sodium Chloride Flush 3 ML SYRINGE IVFLUSH ×3 (08:55→16:27)
[2022-01-23] MEDS: Docusate Sodium 100 MG CAPSULE PO ×2 (08:55→20:03)
[2022-01-23] MEDS: oxyCODONE HCl Immed Release 5 MG TABLET PO ×2 (08:55→20:03)
[2022-01-23] MEDS: Cholecalciferol (Vitamin D3) 25 MCG TABLET 50 MCG PO (08:56)
[2022-01-23] MEDS: Sertraline HCL 100 MG TABLET 200 MG PO (08:56)
[2022-01-23] MEDS: Lidocaine 4 % Patch ADH..PATCH 1 PATCH TRANSDERMA (08:56)
--- NOTE | 2022-01-23 11:20 | MHC.CM.PN ---
PT is recommending STR and [facility] is following. Patient is Covid positive and not likely to be accepted into a STR/SNF until she is considered Covid recovered on 01/30/22. CM will follow.
[2022-01-23] MEDS: 0.9 % Sodium Chloride 1,000 ML 80 ML IVCONT (17:33)
[2022-01-23] MEDS: traZODone HCL 25 MG HALFTAB PO (20:03)
[2022-01-23] MEDS: Mirtazapine 15 MG TABLET 45 MG PO (20:03)
[2022-01-23] MEDS: Donepezil HCl 10 MG TABLET PO (20:03)
[2022-01-24] VITALS (7 sets, daily range): BP systolic 100–156; BP diastolic 55–74; PULSE 61–83; RESP 15–20; TEMP 36.4–36.8; O2SAT 94–98
[2022-01-24] MEDS: Omeprazole 20 MG CAPSULE.DR PO (05:52)
--- NOTE | 2022-01-24 09:01 | MHC.CM.PN ---
KYLE returned a call to Patient's Niece/HCP/Page @ [phone] and updated her on dc planning. Per Patient's request, KYLE has asked MD to call Page to provide her with a more clinical update. KYLE will continue to follow.
[2022-01-24] MEDS: 0.9 % Sodium Chloride Flush 3 ML SYRINGE IVFLUSH ×3 (09:02→20:54)
[2022-01-24] MEDS: Sertraline HCL 100 MG TABLET 200 MG PO (09:02)
[2022-01-24] MEDS: Cholecalciferol (Vitamin D3) 25 MCG TABLET 50 MCG PO (09:02)
[2022-01-24] MEDS: Docusate Sodium 100 MG CAPSULE PO ×2 (09:03→20:54)
[2022-01-24] MEDS: Lidocaine 4 % Patch ADH..PATCH 1 PATCH TRANSDERMA (09:03)
[2022-01-24] MEDS: oxyCODONE HCl Immed Release 5 MG TABLET PO (10:02)
--- NOTE | 2022-01-24 11:38 | HO.PM.IMPN ---
Subjective Subjective Date of Service: 01/24/22 Interval History: f/u on pelvic fx, covid +, rib fractures interval history: no sob, pain is better Review of Systems no chest pain no sob Physical Exam Vital Signs: Vital Signs: Last Vital Signs Temp 97.8 F 01/24/22 08:00 Pulse 76 01/24/22 08:00 Resp 20 01/24/22 08:00 BP 100/55 L 01/24/22 08:00 Pulse Ox 94 01/24/22 08:00 BMI result Body Mass Index 22.4 Const: Other: Gen: in no acute distress HEENT: scalp laceration with mychal clean/dry/intact, sclera anicteric, moist mucus membranes Neck: supple Lungs: clear to auscultation bilaterally Heart: regular rate and rhythm, no murmurs Abd: soft, non-tender, non-distended Ext: no edema, R-sided chest wall tenderness Skin: warm/well-perfused Neuro: alert and oriented to self, no focal findings Psych: appropriate affect Objective Data Active Medications Docusate Sodium (Docusate Sodium 100 Mg Capsule) 100 mg PO BID [facility] Last Admin: 01/24/22 09:03 Dose: 100 mg Documented by: DOTTY Donepezil HCl (Donepezil Hcl 10 Mg Tablet) 10 mg PO BEDTIME [facility] Last Admin: 01/23/22 20:03 Dose: 10 mg Documented by: JASON Sodium Chloride (Ns) 1,000 mls @ 80 mls/hr IVCONT .[id number] [facility] Last Infusion: 01/24/22 11:35 Dose: 0 mls/hr Documented by: DOTTY Lidocaine (Lidocaine 4 % Patch Adh..Patch) 1 patch TRANSDERMA DAILY [facility]; Protocol Last Admin: 01/24/22 09:03 Dose: 1 patch Documented by: DOTTY Mirtazapine (Mirtazapine 15 Mg Tablet) 45 mg PO BEDTIME [facility] Last Admin: 01/23/22 20:03 Dose: 45 mg Documented by: JASON Omeprazole (Omeprazole 20 Mg Capsule.) 20 mg PO DAILY@0630 [facility] Last Admin: 01/24/22 05:52 Dose: 20 mg Documented by: JASON Oxycodone HCl (Oxycodone Hcl Immed Release 5 Mg Tablet) 5 mg PO Q4H PRN PRN Reason: Pain, Severe (Pain Scale 7-10) Last Admin: 01/24/22 10:02 Dose: 5 mg Documented by: DOTTY Pharmacy Consult (Consult Rx Perform Med Rec) 1 each MISCELLANE ONCE PRN PRN Reason: Consult order Senna (Sennosides 8.6 Mg Tablet) 17.2 mg PO Q24H PRN PRN Reason: constipation Sertraline HCl (Sertraline Hcl 100 Mg Tablet) 200 mg PO DAILY [facility] Last Admin: 01/24/22 09:02 Dose: 200 mg Documented by: DOTTY Sodium Chloride (0.9 % Sodium Chloride Flush 3 Ml Syringe) 3 ml IVFLUSH QSHIFT [facility] Last Admin: 01/24/22 09:02 Dose: 3 ml Documented by: DOTTY Trazodone HCl (Trazodone Hcl 25 Mg Halftab) 25 mg PO BEDTIME PRN PRN Reason: Insomnia Last Admin: 01/23/22 20:03 Dose: 25 mg Documented by: RUPERTOC Vitamin D (Cholecalciferol (Vitamin D3) 25 Mcg Tablet) 50 mcg PO DAILY [facility] Last Admin: 01/24/22 09:02 Dose: 50 mcg Documented by: DOTTY Labs CBC & Chem 7: 01/18/22 06:22 01/16/22 05:44 Assessment and Plan (1) HTN (hypertension): Status: Acute (2) Orthostasis: Status: Acute Plan day#11 81yo F presented after falling, admitted for R-sided rib fxs + pelvic fx with pelvic hematoma incidentally Covid-19 positive but completely asymptomatic ?pelvic fx (moderately displaced R pubic bone + mildly displaced posterior R iliac bone) with hematoma - prn oxycodone, per Orthopedics, non-surgical and recommend NWB x 6 wk - H+H stable - monitor for urinary retention given mass effect on bladder ?R 6th + 7th rib fractures - prn oxycodone, Incentive Spirometry,? lidocaine patch ?scalp laceration - remove mychal sometime between 01/20 and 01/23/22 ?Covid-19 positive - maintain isolation, unclear timeline, completely asymptomatic, still positive 01/20/22, retest ?thrombocytopenia - resolving ?HTN, hx - currently normotensive off amlodipine, continue to hold ?DM2, hx - A1c only 5.6, no therapy indicated ?dementia - likely at baseline, suspected Alzheimer's - continue donepezil, sertraline, mirtazapine ?chronic ILD - noted on CT chest, currently without symptoms ?hyperK - resolved possible orthostasis: falls with sitting moniter blood pressure daniel stocking, hydrated ?VTE ppx - SCDs, no heparinoids due to hematoma Need for inpatient:? the patient requires continued hospitalization for the following reasons: safe disposition, requires STR due to NWB status, no SNF bed available yet Quality Stroke Does the patient have a stroke diagnosis?: No VTE Prior VTE?: No VTE Risk Level:: Medical - moderate - high VTE Device Contraindication: N/A - Device Ordered VTE Drug Contraindication: Treatment Not Tolerated
[2022-01-24] MEDS: 0.9 % Sodium Chloride 1,000 ML 80 ML IVCONT (17:00)
[2022-01-24] MEDS: Mirtazapine 15 MG TABLET 45 MG PO (20:53)
[2022-01-24] MEDS: Donepezil HCl 10 MG TABLET PO (20:53)
[2022-01-25 03:20] VITALS: BP 139/79; PULSE 69; RESP 15; TEMP 35.9; O2SAT 97
[2022-01-25] MEDS: Omeprazole 20 MG CAPSULE.DR PO (06:51)
[2022-01-25 07:43] VITALS: BP 127/68; PULSE 70; RESP 18; TEMP 36.6; O2SAT 93
[2022-01-25] MEDS: Sertraline HCL 100 MG TABLET 200 MG PO (09:38)
[2022-01-25] MEDS: Docusate Sodium 100 MG CAPSULE PO ×2 (09:38→20:23)
[2022-01-25] MEDS: Cholecalciferol (Vitamin D3) 25 MCG TABLET 50 MCG PO (09:43)
[2022-01-25] MEDS: 0.9 % Sodium Chloride 1,000 ML 80 ML IVCONT (09:44)
[2022-01-25] MEDS: Lidocaine 4 % Patch ADH..PATCH 1 PATCH TRANSDERMA (09:49)
[2022-01-25 11:25] VITALS: BP 125/65; PULSE 73; RESP 18; TEMP 36.7; O2SAT 98
--- NOTE | 2022-01-25 12:05 | P.PNIM_ITS ---
Subjective Subjective Date of Service: 01/25/22 Interval History: f/u on pelvic fx, covid +, rib fractures interval history: no sob, pain is better, no new issues frurstrated about not been able to move around Review of Systems no chest pain no sob Physical Exam Vital Signs: Vital Signs: Last Vital Signs Temp 98.1 F 01/25/22 11:25 Pulse 73 01/25/22 11:25 Resp 18 01/25/22 11:25 BP 125/65 01/25/22 11:25 Pulse Ox 98 01/25/22 11:25 O2 Del Method 01/25/22 11:25 BMI result Body Mass Index 22.4 Const: Other: Gen: in no acute distress HEENT: scalp laceration with mychal clean/dry/intact, sclera anicteric, moist mucus membranes Neck: supple Lungs: clear to auscultation bilaterally Heart: regular rate and rhythm, no murmurs Abd: soft, non-tender, non-distended Ext: no edema, R-sided chest wall tenderness Skin: warm/well-perfused Neuro: alert and oriented to self, no focal findings Psych: appropriate affect Objective Data Active Medications Docusate Sodium (Docusate Sodium 100 Mg Capsule) 100 mg PO BID [facility] Last Admin: 01/25/22 09:38 Dose: 100 mg Documented By: JESUS Donepezil HCl (Donepezil Hcl 10 Mg Tablet) 10 mg PO BEDTIME [facility] Last Admin: 01/24/22 20:53 Dose: 10 mg Documented By: PILLO Sodium Chloride (Ns) 1,000 mls @ 80 mls/hr IVCONT .[id number] [facility] Last Admin: 01/25/22 09:44 Dose: 80 mls/hr Documented By: JESUS Lidocaine (Lidocaine 4 % Patch Adh..Patch) 1 patch TRANSDERMA DAILY [facility]; Protocol Last Admin: 01/25/22 09:49 Dose: 1 patch Documented By: JESUS Mirtazapine (Mirtazapine 15 Mg Tablet) 45 mg PO BEDTIME [facility] Last Admin: 01/24/22 20:53 Dose: 45 mg Documented By: PILLO Omeprazole (Omeprazole 20 Mg Capsule.) 20 mg PO DAILY@0630 [facility] Last Admin: 01/25/22 06:51 Dose: 20 mg Documented By: PILLO Pharmacy Consult (Consult Rx Perform Med Rec) 1 each MISCELLANE ONCE PRN PRN Reason: Consult order Senna (Sennosides 8.6 Mg Tablet) 17.2 mg PO Q24H PRN PRN Reason: constipation Sertraline HCl (Sertraline Hcl 100 Mg Tablet) 200 mg PO DAILY [facility] Last Admin: 01/25/22 09:38 Dose: 200 mg Documented By: JESUS Sodium Chloride (0.9 % Sodium Chloride Flush 3 Ml Syringe) 3 ml IVFLUSH QSHIFT [facility] Last Admin: 01/25/22 09:51 Dose: Not Given Documented By: JESUS Non-Admin Reason: IV Running Trazodone HCl (Trazodone Hcl 25 Mg Halftab) 25 mg PO BEDTIME PRN PRN Reason: Insomnia Last Admin: 01/23/22 20:03 Dose: 25 mg Documented By: JASON Vitamin D (Cholecalciferol (Vitamin D3) 25 Mcg Tablet) 50 mcg PO DAILY [facility] Last Admin: 01/25/22 09:43 Dose: 50 mcg Documented By: JESUS Labs CBC & Chem 7: 01/18/22 06:22 01/16/22 05:44 Assessment and Plan (1) HTN (hypertension): Status: Acute (2) Orthostasis: Status: Acute Plan day#11 81yo F presented after falling, admitted for R-sided rib fxs + pelvic fx with pelvic hematoma incidentally Covid-19 positive but completely asymptomatic ?pelvic fx (moderately displaced R pubic bone + mildly displaced posterior R iliac bone) with hematoma - prn oxycodone, per Orthopedics, non-surgical and recommend NWB x 6 wk - H+H stable - monitor for urinary retention given mass effect on bladder- -PT to reassess for possbily going home per PT requested ?R 6th + 7th rib fractures - prn oxycodone, Incentive Spirometry,? lidocaine patch ?scalp laceration - remove mychal sometime between 01/20 and 01/23/22 ?Covid-19 positive - maintain isolation, unclear timeline, completely asymptomatic, still positive 01/20/22, retest ?thrombocytopenia - resolving ?HTN, hx - currently normotensive off amlodipine, continue to hold ?DM2, hx - A1c only 5.6, no therapy indicated ?dementia - likely at baseline, suspected Alzheimer's - continue donepezil, sertraline, mirtazapine ?chronic ILD - noted on CT chest, currently without symptoms ?hyperK - resolved possible orthostasis: falls with sitting moniter blood pressure daniel stocking, hydrated ?VTE ppx - SCDs, no heparinoids due to hematoma Need for inpatient:? the patient requires continued hospitalization for the following reasons: safe disposition, requires STR due to NWB status, no SNF bed available yet Quality Stroke Does the patient have a stroke diagnosis?: No VTE Prior VTE?: No VTE Risk Level:: Medical - moderate - high VTE Device Contraindication: N/A - Device Ordered VTE Drug Contraindication: Treatment Not Tolerated
--- NOTE | 2022-01-25 12:42 | MHC.CM.PN ---
Plan continues to be STR; no Covid appropriate bed offers as of yet; CM will continue to follow.
[2022-01-25 13:07] LABS: COVID-19 Test Positive (Negative)
[2022-01-25 16:00] VITALS: BP 132/63; PULSE 70; RESP 18; TEMP 37.6; O2SAT 96
[2022-01-25] MEDS: 0.9 % Sodium Chloride Flush 3 ML SYRINGE IVFLUSH ×2 (18:07→20:23)
[2022-01-25 19:46] VITALS: BP 128/59; PULSE 80; RESP 18; TEMP 36.6; O2SAT 96
[2022-01-25] MEDS: Donepezil HCl 10 MG TABLET PO (20:21)
[2022-01-25] MEDS: Mirtazapine 15 MG TABLET 45 MG PO (20:21)
[2022-01-25 23:30] VITALS: BP 143/66; PULSE 64; RESP 18; TEMP 36.5; O2SAT 96
[2022-01-26] VITALS (7 sets, daily range): BP systolic 128–154; BP diastolic 59–78; PULSE 63–79; RESP 16–20; TEMP 36.4–37; O2SAT 96–98
[2022-01-26] MEDS: Omeprazole 20 MG CAPSULE.DR PO (05:36)
[2022-01-26] MEDS: Lidocaine 4 % Patch ADH..PATCH 1 PATCH TRANSDERMA (07:58)
[2022-01-26] MEDS: Sertraline HCL 100 MG TABLET 200 MG PO (07:58)
[2022-01-26] MEDS: 0.9 % Sodium Chloride Flush 3 ML SYRINGE IVFLUSH ×3 (07:59→20:14)
[2022-01-26] MEDS: Cholecalciferol (Vitamin D3) 25 MCG TABLET 50 MCG PO (07:59)
[2022-01-26] MEDS: Docusate Sodium 100 MG CAPSULE PO ×2 (07:59→20:13)
--- NOTE | 2022-01-26 11:01 | HO.PM.IMPN ---
Subjective Subjective Date of Service: 01/26/22 Interval History: f/u on pelvic fx, covid +, rib fractures interval history: no sob, pain is better, no new issues frurstrated abuot being in here still, still + for covid Review of Systems no chest pain no sob Physical Exam Vital Signs: Vital Signs: Last Vital Signs Temp 98.2 F 01/26/22 07:21 Pulse 63 01/26/22 08:43 Resp 20 01/26/22 07:21 BP 154/72 H 01/26/22 08:43 Pulse Ox 96 01/26/22 08:43 O2 Del Method 01/26/22 07:21 BMI result Body Mass Index 22.4 Const: Other: Gen: in no acute distress HEENT: scalp laceration with mychal clean/dry/intact, sclera anicteric, moist mucus membranes Neck: supple Lungs: clear to auscultation bilaterally Heart: regular rate and rhythm, no murmurs Abd: soft, non-tender, non-distended Ext: no edema, R-sided chest wall tenderness Skin: warm/well-perfused Neuro: alert and oriented to self, no focal findings Psych: appropriate affect Objective Data Active Medications Docusate Sodium (Docusate Sodium 100 Mg Capsule) 100 mg PO BID [facility] Last Admin: 01/26/22 07:59 Dose: 100 mg Documented By: BRISEIDA Donepezil HCl (Donepezil Hcl 10 Mg Tablet) 10 mg PO BEDTIME [facility] Last Admin: 01/25/22 20:21 Dose: 10 mg Documented By: PILLO Lidocaine (Lidocaine 4 % Patch Adh..Patch) 1 patch TRANSDERMA DAILY [facility]; Protocol Last Admin: 01/26/22 07:58 Dose: 1 patch Documented By: BRISEIDA Mirtazapine (Mirtazapine 15 Mg Tablet) 45 mg PO BEDTIME [facility] Last Admin: 01/25/22 20:21 Dose: 45 mg Documented By: PILLO Omeprazole (Omeprazole 20 Mg Capsule.) 20 mg PO DAILY@0630 [facility] Last Admin: 01/26/22 05:36 Dose: 20 mg Documented By: PILLO Pharmacy Consult (Consult Rx Perform Med Rec) 1 each MISCELLANE ONCE PRN PRN Reason: Consult order Senna (Sennosides 8.6 Mg Tablet) 17.2 mg PO Q24H PRN PRN Reason: constipation Sertraline HCl (Sertraline Hcl 100 Mg Tablet) 200 mg PO DAILY [facility] Last Admin: 01/26/22 07:58 Dose: 200 mg Documented By: BRISEIDA Sodium Chloride (0.9 % Sodium Chloride Flush 3 Ml Syringe) 3 ml IVFLUSH QSHIFT [facility] Last Admin: 01/26/22 07:59 Dose: 3 ml Documented By: BRISEIDA Trazodone HCl (Trazodone Hcl 25 Mg Halftab) 25 mg PO BEDTIME PRN PRN Reason: Insomnia Last Admin: 01/23/22 20:03 Dose: 25 mg Documented By: NAUMOC Vitamin D (Cholecalciferol (Vitamin D3) 25 Mcg Tablet) 50 mcg PO DAILY [facility] Last Admin: 01/26/22 07:59 Dose: 50 mcg Documented By: BRISEIDA Labs CBC & Chem 7: 01/18/22 06:22 01/16/22 05:44 Labs: Laboratory Results - last 24 hr 01/25/22 12:45 COVID-19 ([facility]) Positive A COVID-19 Clin Com See Note Assessment and Plan (1) HTN (hypertension): Status: Acute (2) Orthostasis: Status: Acute Plan day#13 81yo F presented after falling, admitted for R-sided rib fxs + pelvic fx with pelvic hematoma incidentally Covid-19 positive but completely asymptomatic ?pelvic fx (moderately displaced R pubic bone + mildly displaced posterior R iliac bone) with hematoma - prn oxycodone, per Orthopedics, non-surgical and recommend NWB x 6 wk on right side - H+H stable - monitor for urinary retention given mass effect on bladder- -PT to reassess for possbily going home per PT requested ?R 6th + 7th rib fractures - prn oxycodone, Incentive Spirometry,? lidocaine patch ?scalp laceration - remove mychal sometime between 01/20 and 01/23/22 ?Covid-19 positive - maintain isolation, unclear timeline, completely asymptomatic, still positive 01/25/22, retest ?thrombocytopenia - resolving ?HTN, hx - currently normotensive off amlodipine, continue to hold ?DM2, hx - A1c only 5.6, no therapy indicated ?dementia - likely at baseline, suspected Alzheimer's - continue donepezil, sertraline, mirtazapine ?chronic ILD - noted on CT chest, currently without symptoms ?hyperK - resolved possible orthostasis: falls with sitting moniter blood pressure daniel stocking, hydrated ?VTE ppx - SCDs, no heparinoids due to hematoma Need for inpatient:? the patient requires continued hospitalization for the following reasons: safe disposition, requires STR due to NWB status, no SNF bed available yet Quality Stroke Does the patient have a stroke diagnosis?: No VTE Prior VTE?: No VTE Risk Level:: Medical - moderate - high VTE Device Contraindication: N/A - Device Ordered VTE Drug Contraindication: Treatment Not Tolerated
[2022-01-26] MEDS: Mirtazapine 15 MG TABLET 45 MG PO (20:13)
[2022-01-26] MEDS: Donepezil HCl 10 MG TABLET PO (20:14)
[2022-01-27] VITALS (7 sets, daily range): BP systolic 114–149; BP diastolic 55–72; PULSE 68–92; RESP 14–20; TEMP 36.2–37.1; O2SAT 80–98
[2022-01-27] MEDS: Omeprazole 20 MG CAPSULE.DR PO (05:48)
[2022-01-27] MEDS: Docusate Sodium 100 MG CAPSULE PO ×2 (07:27→21:29)
[2022-01-27] MEDS: 0.9 % Sodium Chloride Flush 3 ML SYRINGE IVFLUSH ×3 (07:27→21:29)
[2022-01-27] MEDS: Lidocaine 4 % Patch ADH..PATCH 1 PATCH TRANSDERMA (07:28)
[2022-01-27] MEDS: Sertraline HCL 100 MG TABLET 200 MG PO (07:28)
[2022-01-27] MEDS: Cholecalciferol (Vitamin D3) 25 MCG TABLET 50 MCG PO (07:28)
--- NOTE | 2022-01-27 09:50 | MHC.CM.PN ---
Female 81 Covid+ s/p fall w Pelvic FX. She is ready for discharge to a facility. She has 2 facilities following for Covid recovery 01/30/22. She will transport via BLS.
--- NOTE | 2022-01-27 11:08 | P.PNIM_ITS ---
Subjective Subjective Date of Service: 01/27/22 Interval History: f/u on pelvic fx, covid +, rib fractures interval history: no sob, pain is controlled, no new issues Review of Systems no chest pain no sob Physical Exam Vital Signs: Vital Signs: Last Vital Signs Temp 98.1 F 01/27/22 07:00 Pulse 68 01/27/22 08:53 Resp 16 01/27/22 07:00 BP 138/72 01/27/22 08:53 Pulse Ox 97 01/27/22 08:53 O2 Del Method 01/27/22 07:00 BMI result Body Mass Index 22.4 Const: Other: Gen: in no acute distress Lungs: clear to auscultation bilaterally Heart: regular rate and rhythm, no murmurs Abd: soft, non-tender, non-distended Ext: no edema, R-sided chest wall tenderness Skin: warm/well-perfused Neuro: alert and oriented to self, no focal findings Psych: appropriate affect Objective Data Active Medications Docusate Sodium (Docusate Sodium 100 Mg Capsule) 100 mg PO BID [facility] Last Admin: 01/27/22 07:27 Dose: 100 mg Documented By: DOTTY Donepezil HCl (Donepezil Hcl 10 Mg Tablet) 10 mg PO BEDTIME [facility] Last Admin: 01/26/22 20:14 Dose: 10 mg Documented By: PILLO Lidocaine (Lidocaine 4 % Patch Adh..Patch) 1 patch TRANSDERMA DAILY [facility]; Protocol Last Admin: 01/27/22 07:28 Dose: 1 patch Documented By: DOTTY Mirtazapine (Mirtazapine 15 Mg Tablet) 45 mg PO BEDTIME [facility] Last Admin: 01/26/22 20:13 Dose: 45 mg Documented By: PILLO Omeprazole (Omeprazole 20 Mg Capsule.Dr) 20 mg PO DAILY@0630 [facility] Last Admin: 01/27/22 05:48 Dose: 20 mg Documented By: PILLO Pharmacy Consult (Consult Rx Perform Med Rec) 1 each MISCELLANE ONCE PRN PRN Reason: Consult order Senna (Sennosides 8.6 Mg Tablet) 17.2 mg PO Q24H PRN PRN Reason: constipation Sertraline HCl (Sertraline Hcl 100 Mg Tablet) 200 mg PO DAILY [facility] Last Admin: 06/10/22 07:28 Dose: 200 mg Documented By: DOTTY Sodium Chloride (0.9 % Sodium Chloride Flush 3 Ml Syringe) 3 ml IVFLUSH QSHIFT [facility] Last Admin: 01/27/22 07:27 Dose: 3 ml Documented By: DOTTY Trazodone HCl (Trazodone Hcl 25 Mg Halftab) 25 mg PO BEDTIME PRN PRN Reason: Insomnia Last Admin: 01/23/22 20:03 Dose: 25 mg Documented By: JASON Vitamin D (Cholecalciferol (Vitamin D3) 25 Mcg Tablet) 50 mcg PO DAILY [facility] Last Admin: 01/27/22 07:28 Dose: 50 mcg Documented By: DOTTY Labs CBC & Chem 7: 01/18/22 06:22 01/16/22 05:44 Assessment and Plan (1) HTN (hypertension): Status: Acute (2) Orthostasis: Status: Acute Plan day#13 81yo F presented after falling, admitted for R-sided rib fxs + pelvic fx with pelvic hematoma incidentally Covid-19 positive but completely asymptomatic ?pelvic fx (moderately displaced R pubic bone + mildly displaced posterior R iliac bone) with hematoma - prn oxycodone, per Orthopedics, non-surgical and recommend NWB x 6 wk on right side - H+H stable - monitor for urinary retention given mass effect on bladder- -PT to reassess for possbily going home per PT requested ?R 6th + 7th rib fractures - prn oxycodone, Incentive Spirometry,? lidocaine patch ?scalp laceration - remove mychal sometime between 01/20 and 01/23/22 ?Covid-19 positive - maintain isolation, unclear timeline, completely asymptomatic, still positive 01/25/22, retest ?thrombocytopenia - resolving ?HTN, hx - currently normotensive off amlodipine, continue to hold ?DM2, hx - A1c only 5.6, no therapy indicated ?dementia - likely at baseline, suspected Alzheimer's - continue donepezil, sertraline, mirtazapine ?chronic ILD - noted on CT chest, currently without symptoms ?hyperK - resolved possible orthostasis: falls with sitting moniter blood pressure daniel stocking, hydrated ?VTE ppx - SCDs, no heparinoids due to hematoma Need for inpatient:? the patient requires continued hospitalization for the following reasons: safe disposition, requires STR due to NWB status, no SNF bed available yet Quality Stroke Does the patient have a stroke diagnosis?: No VTE Prior VTE?: No VTE Risk Level:: Medical - moderate - high VTE Device Contraindication: N/A - Device Ordered VTE Drug Contraindication: Treatment Not Tolerated
[2022-01-27] MEDS: Donepezil HCl 10 MG TABLET PO (21:29)
[2022-01-27] MEDS: Mirtazapine 15 MG TABLET 45 MG PO (21:29)
[2022-01-27] MEDS: traZODone HCL 25 MG HALFTAB PO (21:29)
[2022-01-28 03:37] VITALS: BP 140/71; PULSE 73; RESP 16; TEMP 36.6; O2SAT 96
[2022-01-28] MEDS: Omeprazole 20 MG CAPSULE.DR PO (05:39)
[2022-01-28 07:00] VITALS: BP 125/59; PULSE 73; RESP 18; TEMP 36.9; O2SAT 97
[2022-01-28 08:00] VITALS: PULSE 79
[2022-01-28] MEDS: 0.9 % Sodium Chloride Flush 3 ML SYRINGE IVFLUSH ×3 (08:30→19:35)
[2022-01-28] MEDS: Lidocaine 4 % Patch ADH..PATCH 1 PATCH TRANSDERMA (08:30)
[2022-01-28] MEDS: Sertraline HCL 100 MG TABLET 200 MG PO (08:30)
[2022-01-28] MEDS: Cholecalciferol (Vitamin D3) 25 MCG TABLET 50 MCG PO (08:31)
[2022-01-28] MEDS: Docusate Sodium 100 MG CAPSULE PO ×2 (08:31→19:34)
[2022-01-28 11:00] VITALS: BP 127/54; PULSE 88; RESP 18; TEMP 36.8; O2SAT 96
[2022-01-28] MEDS: oxyCODONE HCl Immed Release 5 MG TABLET PO ×2 (11:00→17:15)
--- NOTE | 2022-01-28 11:00 | HO.PM.IMPN ---
Subjective Subjective Date of Service: 01/28/22 Interval History: f/u on pelvic fx, covid +, rib fractures interval history: no sob, pain is controlled, no new issues Review of Systems no chest pain no sob Physical Exam Vital Signs: Vital Signs: Last Vital Signs Temp 98.4 F 01/28/22 07:00 Pulse 73 01/28/22 07:00 Resp 18 01/28/22 07:00 BP 125/59 L 01/28/22 07:00 Pulse Ox 97 01/28/22 07:00 O2 Del Method 01/28/22 07:00 BMI result Body Mass Index 22.4 Const: Other: Gen: in no acute distress Lungs: clear to auscultation bilaterally Heart: regular rate and rhythm, no murmurs Abd: soft, non-tender, non-distended Ext: no edema, R-sided chest wall tenderness Skin: warm/well-perfused Neuro: alert and oriented to self, no focal findings Psych: appropriate affect Objective Data Active Medications Docusate Sodium (Docusate Sodium 100 Mg Capsule) 100 mg PO BID [facility] Last Admin: 01/28/22 08:31 Dose: 100 mg Documented By: DOTTY Donepezil HCl (Donepezil Hcl 10 Mg Tablet) 10 mg PO BEDTIME [facility] Last Admin: 01/27/22 21:29 Dose: 10 mg Documented By: ROS Lidocaine (Lidocaine 4 % Patch Adh..Patch) 1 patch TRANSDERMA DAILY [facility]; Protocol Last Admin: 01/28/22 08:30 Dose: 1 patch Documented By: DOTTY Mirtazapine (Mirtazapine 15 Mg Tablet) 45 mg PO BEDTIME [facility] Last Admin: 01/27/22 21:29 Dose: 45 mg Documented By: ROS Omeprazole (Omeprazole 20 Mg Capsule.Dr) 20 mg PO DAILY@0630 [facility] Last Admin: 01/28/22 05:39 Dose: 20 mg Documented By: ROS Oxycodone HCl (Oxycodone Hcl Immed Release 5 Mg Tablet) 5 mg PO Q6H PRN PRN Reason: Pain, Severe (Pain Scale 7-10) Pharmacy Consult (Consult Rx Perform Med Rec) 1 each MISCELLANE ONCE PRN PRN Reason: Consult order Senna (Sennosides 8.6 Mg Tablet) 17.2 mg PO Q24H PRN PRN Reason: constipation Sertraline HCl (Sertraline Hcl 100 Mg Tablet) 200 mg PO DAILY [facility] Last Admin: 01/28/22 08:30 Dose: 200 mg Documented By: DOTTY Sodium Chloride (0.9 % Sodium Chloride Flush 3 Ml Syringe) 3 ml IVFLUSH QSHIFT [facility] Last Admin: 01/28/22 08:30 Dose: 3 ml Documented By: DOTTY Trazodone HCl (Trazodone Hcl 25 Mg Halftab) 25 mg PO BEDTIME PRN PRN Reason: Insomnia Last Admin: 01/27/22 21:29 Dose: 25 mg Documented By: ROS Vitamin D (Cholecalciferol (Vitamin D3) 25 Mcg Tablet) 50 mcg PO DAILY [facility] Last Admin: 01/28/22 08:31 Dose: 50 mcg Documented By: DOTTY Labs CBC & Chem 7: 01/18/22 06:22 01/16/22 05:44 Assessment and Plan (1) HTN (hypertension): Status: Acute (2) Orthostasis: Status: Acute Plan day#15 81yo F presented after falling, admitted for R-sided rib fxs + pelvic fx with pelvic hematoma incidentally Covid-19 positive but completely asymptomatic ?pelvic fx (moderately displaced R pubic bone + mildly displaced posterior R iliac bone) with hematoma - prn oxycodone, per Orthopedics, non-surgical and recommend NWB x 6 wk on right side - H+H stable - monitor for urinary retention given mass effect on bladder- -PT to reassess for possbily going home per PT requested -Oxycodone for pain ?R 6th + 7th rib fractures - prn oxycodone, Incentive Spirometry,? lidocaine patch ?scalp laceration - remove mychal sometime between 01/20 and 01/23/22 ?Covid-19 positive - maintain isolation, unclear timeline, completely asymptomatic, still positive 01/25/22, but assymptomatic ?thrombocytopenia - resolving ?HTN, hx - currently normotensive off amlodipine, continue to hold ?DM2, hx - A1c only 5.6, no therapy indicated ?dementia - likely at baseline, suspected Alzheimer's - continue donepezil, sertraline, mirtazapine ?chronic ILD - noted on CT chest, currently without symptoms ?hyperK - resolved possible orthostasis: falls with sitting moniter blood pressure daniel stocking, hydrated ?VTE ppx - SCDs, no heparinoids due to hematoma Need for inpatient:? the patient requires continued hospitalization for the following reasons: safe disposition, requires STR due to NWB status, no SNF bed available yet Updated niece over the phone offer her to visit Quality Stroke Does the patient have a stroke diagnosis?: No VTE Prior VTE?: No VTE Risk Level:: Medical - moderate - high VTE Device Contraindication: N/A - Device Ordered VTE Drug Contraindication: Treatment Not Tolerated
[2022-01-28 15:00] VITALS: BP 107/67; PULSE 93; RESP 14; TEMP 36.3; O2SAT 96
[2022-01-28 18:59] VITALS: BP 107/58; PULSE 72; RESP 18; TEMP 36.8; O2SAT 95
[2022-01-28] MEDS: Donepezil HCl 10 MG TABLET PO (19:34)
[2022-01-28] MEDS: Mirtazapine 15 MG TABLET 45 MG PO (19:35)
[2022-01-29 03:24] VITALS: BP 151/61; RESP 20; TEMP 36.5; O2SAT 100
[2022-01-29] MEDS: Omeprazole 20 MG CAPSULE.DR PO (05:30)
[2022-01-29 08:00] VITALS: BP 130/62; PULSE 70; RESP 20; TEMP 36.8; O2SAT 97
[2022-01-29] MEDS: Sertraline HCL 100 MG TABLET 200 MG PO (08:25)
[2022-01-29] MEDS: Docusate Sodium 100 MG CAPSULE PO ×2 (08:25→21:09)
[2022-01-29] MEDS: 0.9 % Sodium Chloride Flush 3 ML SYRINGE IVFLUSH ×3 (08:25→21:10)
[2022-01-29] MEDS: Lidocaine 4 % Patch ADH..PATCH 1 PATCH TRANSDERMA (08:25)
[2022-01-29] MEDS: Cholecalciferol (Vitamin D3) 25 MCG TABLET 50 MCG PO (08:25)
--- NOTE | 2022-01-29 10:26 | HO.PM.IMPN ---
Subjective Subjective Date of Service: 01/29/22 Interval History: f/u on pelvic fx, covid +, rib fractures interval history: no sob, pain is controlled, no new issues, frustrated about not been able to go home Review of Systems no chest pain no sob Physical Exam Vital Signs: Vital Signs: Last Vital Signs Temp 98.3 F 01/29/22 08:00 Pulse 70 01/29/22 08:00 Resp 20 01/29/22 08:00 BP 130/62 01/29/22 08:00 Pulse Ox 97 01/29/22 08:00 O2 Del Method 01/29/22 08:00 BMI result Body Mass Index 22.4 Const: Other: Gen: in no acute distress Lungs: clear to auscultation bilaterally Heart: regular rate and rhythm, no murmurs Abd: soft, non-tender, non-distended Ext: no edema, R-sided chest wall tenderness Skin: warm/well-perfused Neuro: alert and oriented to self, no focal findings Psych: appropriate affect Objective Data Active Medications Docusate Sodium (Docusate Sodium 100 Mg Capsule) 100 mg PO BID [facility] Last Admin: 01/29/22 08:25 Dose: 100 mg Documented By: DOTTY Donepezil HCl (Donepezil Hcl 10 Mg Tablet) 10 mg PO BEDTIME [facility] Last Admin: 01/28/22 19:34 Dose: 10 mg Documented By: ROS Lidocaine (Lidocaine 4 % Patch Adh..Patch) 1 patch TRANSDERMA DAILY [facility]; Protocol Last Admin: 01/29/22 08:25 Dose: 1 patch Documented By: DOTTY Mirtazapine (Mirtazapine 15 Mg Tablet) 45 mg PO BEDTIME [facility] Last Admin: 01/28/22 19:35 Dose: 45 mg Documented By: ROS Omeprazole (Omeprazole 20 Mg Capsule.Dr) 20 mg PO DAILY@0630 [facility] Last Admin: 01/29/22 05:30 Dose: 20 mg Documented By: ROS Oxycodone HCl (Oxycodone Hcl Immed Release 5 Mg Tablet) 5 mg PO Q6H PRN PRN Reason: Pain, Severe (Pain Scale 7-10) Last Admin: 01/28/22 17:15 Dose: 5 mg Documented By: DOTTY Pharmacy Consult (Consult Rx Perform Med Rec) 1 each MISCELLANE ONCE PRN PRN Reason: Consult order Senna (Sennosides 8.6 Mg Tablet) 17.2 mg PO Q24H PRN PRN Reason: constipation Sertraline HCl (Sertraline Hcl 100 Mg Tablet) 200 mg PO DAILY [facility] Last Admin: 01/29/22 08:25 Dose: 200 mg Documented By: DOTTY Sodium Chloride (0.9 % Sodium Chloride Flush 3 Ml Syringe) 3 ml IVFLUSH QSHIFT [facility] Last Admin: 01/29/22 08:25 Dose: 3 ml Documented By: DOTTY Trazodone HCl (Trazodone Hcl 25 Mg Halftab) 25 mg PO BEDTIME PRN PRN Reason: Insomnia Last Admin: 01/27/22 21:29 Dose: 25 mg Documented By: ROS Vitamin D (Cholecalciferol (Vitamin D3) 25 Mcg Tablet) 50 mcg PO DAILY [facility] Last Admin: 01/29/22 08:25 Dose: 50 mcg Documented By: DOTTY Labs CBC & Chem 7: 01/18/22 06:22 01/16/22 05:44 Assessment and Plan (1) Dementia: Status: Acute (2) HTN (hypertension): Status: Acute (3) Diabetes: Status: Acute (4) COVID-19: Status: Acute Plan day#16 81yo F presented after falling, admitted for R-sided rib fxs + pelvic fx with pelvic hematoma incidentally Covid-19 positive but completely asymptomatic ?pelvic fx (moderately displaced R pubic bone + mildly displaced posterior R iliac bone) with hematoma - prn oxycodone, per Orthopedics, non-surgical and recommend NWB x 6 wk on right side - H+H stable - monitor for urinary retention given mass effect on bladder- -PT to reassess for possbily going home per PT requested -Oxycodone for pain ?R 6th + 7th rib fractures - prn oxycodone, Incentive Spirometry,? lidocaine patch ?scalp laceration - remove mychal sometime between 01/20 and 01/23/22 ?Covid-19 positive - maintain isolation, unclear timeline, completely asymptomatic, still positive 01/25/22, but assymptomatic ?thrombocytopenia - resolving ?HTN, hx - currently normotensive off amlodipine, continue to hold ?DM2, hx - A1c only 5.6, no therapy indicated ?dementia - likely at baseline, suspected Alzheimer's - continue donepezil, sertraline, mirtazapine ?chronic ILD - noted on CT chest, currently without symptoms ?hyperK - resolved possible orthostasis: falls with sitting moniter blood pressure daniel stocking, hydrated ?VTE ppx - SCDs, no heparinoids due to hematoma Need for inpatient:? the patient requires continued hospitalization for the following reasons: safe disposition, requires STR due to NWB status, no SNF bed available yet Possible dc tomorrow Quality Stroke Does the patient have a stroke diagnosis?: No VTE Prior VTE?: No VTE Risk Level:: Medical - moderate - high VTE Device Contraindication: N/A - Device Ordered VTE Drug Contraindication: Treatment Not Tolerated
[2022-01-29 11:42] VITALS: BP 139/60; PULSE 73; RESP 19; TEMP 36.5; O2SAT 98
[2022-01-29 15:24] VITALS: BP 118/64; PULSE 67; RESP 14; TEMP 36.4; O2SAT 98
[2022-01-29 19:10] VITALS: BP 125/73; PULSE 79; RESP 14; TEMP 36.6; O2SAT 99
[2022-01-29] MEDS: Donepezil HCl 10 MG TABLET PO (21:09)
[2022-01-29] MEDS: Mirtazapine 15 MG TABLET 45 MG PO (21:09)
[2022-01-29] MEDS: oxyCODONE HCl Immed Release 5 MG TABLET PO (21:13)
[2022-01-29 23:40] VITALS: BP 129/60; PULSE 72; RESP 18; TEMP 36.5; O2SAT 97
[2022-01-30] VITALS (8 sets, daily range): BP systolic 102–142; BP diastolic 53–85; PULSE 61–104; RESP 16–18; TEMP 36.2–37.5; O2SAT 96–98
[2022-01-30] MEDS: Omeprazole 20 MG CAPSULE.DR PO (06:28)
[2022-01-30] MEDS: Sertraline HCL 100 MG TABLET 200 MG PO (07:57)
[2022-01-30] MEDS: 0.9 % Sodium Chloride Flush 3 ML SYRINGE IVFLUSH ×2 (07:57→21:12)
[2022-01-30] MEDS: Cholecalciferol (Vitamin D3) 25 MCG TABLET 50 MCG PO (07:58)
[2022-01-30] MEDS: Lidocaine 4 % Patch ADH..PATCH 1 PATCH TRANSDERMA (07:58)
[2022-01-30] MEDS: Docusate Sodium 100 MG CAPSULE PO ×2 (07:58→21:12)
--- NOTE | 2022-01-30 11:04 | P.PNIM_ITS ---
Subjective Subjective Date of Service: 01/30/22 Interval History: f/u on pelvic fx, covid +, rib fractures interval history: no new issues, pain is controlled. Review of Systems no chest pain no sob Physical Exam Vital Signs: Vital Signs: Last Vital Signs Temp 97.1 F 01/30/22 07:51 Pulse 101 H 01/30/22 07:52 Resp 16 01/30/22 07:51 BP 117/53 L 01/30/22 07:52 Pulse Ox 97 01/30/22 07:51 O2 Del Method 01/30/22 07:51 BMI result Body Mass Index 22.4 Const: Other: Gen: in no acute distress Lungs: clear to auscultation bilaterally Heart: regular rate and rhythm, no murmurs Abd: soft, non-tender, non-distended Ext: no edema, R-sided chest wall tenderness Skin: warm/well-perfused Neuro: alert and oriented to self, no focal findings Psych: appropriate affect Objective Data Active Medications Docusate Sodium (Docusate Sodium 100 Mg Capsule) 100 mg PO BID [facility] Last Admin: 01/30/22 07:58 Dose: 100 mg Documented By: DOTTY Donepezil HCl (Donepezil Hcl 10 Mg Tablet) 10 mg PO BEDTIME [facility] Last Admin: 01/29/22 21:09 Dose: 10 mg Documented By: CLARENCE Lidocaine (Lidocaine 4 % Patch Adh..Patch) 1 patch TRANSDERMA DAILY [facility]; Protocol Last Admin: 01/30/22 07:58 Dose: 1 patch Documented By: DOTTY Mirtazapine (Mirtazapine 15 Mg Tablet) 45 mg PO BEDTIME [facility] Last Admin: 01/29/22 21:09 Dose: 45 mg Documented By: CLARENCE Omeprazole (Omeprazole 20 Mg Capsule.) 20 mg PO DAILY@0630 [facility] Last Admin: 01/30/22 06:28 Dose: 20 mg Documented By: CLARENCE Oxycodone HCl (Oxycodone Hcl Immed Release 5 Mg Tablet) 5 mg PO Q6H PRN PRN Reason: Pain, Severe (Pain Scale 7-10) Last Admin: 01/29/22 21:13 Dose: 5 mg Documented By: CLARENCE Pharmacy Consult (Consult Rx Perform Med Rec) 1 each MISCELLANE ONCE PRN PRN Reason: Consult order Senna (Sennosides 8.6 Mg Tablet) 17.2 mg PO Q24H PRN PRN Reason: constipation Sertraline HCl (Sertraline Hcl 100 Mg Tablet) 200 mg PO DAILY [facility] Last Admin: 01/30/22 07:57 Dose: 200 mg Documented By: DOTTY Sodium Chloride (0.9 % Sodium Chloride Flush 3 Ml Syringe) 3 ml IVFLUSH QSHIFT [facility] Last Admin: 01/30/22 07:57 Dose: 3 ml Documented By: DOTTY Trazodone HCl (Trazodone Hcl 25 Mg Halftab) 25 mg PO BEDTIME PRN PRN Reason: Insomnia Last Admin: 01/27/22 21:29 Dose: 25 mg Documented By: ROS Vitamin D (Cholecalciferol (Vitamin D3) 25 Mcg Tablet) 50 mcg PO DAILY [facility] Last Admin: 01/30/22 07:58 Dose: 50 mcg Documented By: DOTTY Labs CBC & Chem 7: 01/18/22 06:22 01/16/22 05:44 Assessment and Plan (1) Dementia: Status: Acute (2) HTN (hypertension): Status: Acute (3) Diabetes: Status: Acute (4) COVID-19: Status: Acute Plan day#17 81yo F presented after falling, admitted for R-sided rib fxs + pelvic fx with pelvic hematoma incidentally Covid-19 positive but completely asymptomatic ?Pelvic fx (moderately displaced R pubic bone + mildly displaced posterior R iliac bone) with hematoma - prn oxycodone, per Orthopedics, non-surgical and recommend NWB x 6 wk on right side - H+H stable - monitor for urinary retention given mass effect on bladder- -PT to reassess for possbily going home per PT requested -Oxycodone for pain ?R 6th + 7th rib fractures - prn oxycodone, Incentive Spirometry,? lidocaine patch ?scalp laceration - remove mychal sometime between 01/20 and 01/23/22 ?Covid-19 positive - maintain isolation, unclear timeline, completely asymptomatic, still positive 01/25/22, but assymptomatic ?thrombocytopenia - resolving ?HTN, hx - currently normotensive off amlodipine, continue to hold ?DM2, hx - A1c only 5.6, no therapy indicated ?dementia - likely at baseline, suspected Alzheimer's - continue donepezil, sertraline, mirtazapine ?chronic ILD - noted on CT chest, currently without symptoms ?hyperK - resolved possible orthostasis: falls with sitting moniter blood pressure daniel stocking, hydrated ?VTE ppx - SCDs, no heparinoids due to hematoma Need for inpatient:? the patient requires continued hospitalization for the following reasons: safe disposition, requires STR due to NWB status, no SNF bed available yet DC when bed is available Quality Stroke Does the patient have a stroke diagnosis?: No VTE Prior VTE?: No VTE Risk Level:: Medical - moderate - high VTE Device Contraindication: N/A - Device Ordered VTE Drug Contraindication: Treatment Not Tolerated
--- NOTE | 2022-01-30 12:52 | MHC.CM.PN ---
FEMALE 81 S/P FALL PELVIC FX COVID+ SHE IS COVID RECOVERED. SHE HAS A FEW FACILITIES FOLLOWING FOR DISCHARGE. NO AVAILABLE BED TODAY. SHE WILL TRANSPORT VIA BLS.
[2022-01-30] MEDS: traZODone HCL 25 MG HALFTAB PO (21:12)
[2022-01-30] MEDS: Donepezil HCl 10 MG TABLET PO (21:12)
[2022-01-30] MEDS: Mirtazapine 15 MG TABLET 45 MG PO (21:12)
[2022-01-31 03:35] VITALS: BP 118/70; PULSE 83; RESP 17; TEMP 36.4; O2SAT 97
[2022-01-31 08:00] VITALS: BP 119/67; PULSE 74; RESP 20; TEMP 36.5; O2SAT 100
[2022-01-31] MEDS: Cholecalciferol (Vitamin D3) 25 MCG TABLET 50 MCG PO (08:28)
[2022-01-31] MEDS: Sertraline HCL 100 MG TABLET 200 MG PO (08:28)
[2022-01-31] MEDS: Lidocaine 4 % Patch ADH..PATCH 1 PATCH TRANSDERMA (08:29)
[2022-01-31] MEDS: oxyCODONE HCl Immed Release 5 MG TABLET PO (08:30)
[2022-01-31] MEDS: Docusate Sodium 100 MG CAPSULE PO ×2 (08:31→20:24)
[2022-01-31 11:48] VITALS: BP 101/57; PULSE 75; RESP 20; TEMP 36.6; O2SAT 99
--- NOTE | 2022-01-31 13:46 | P.PNIM_ITS ---
Subjective Subjective Date of Service: 01/31/22 Interval History: This history was taken in Malay from the patient. Rib and pelvic pain minimal, well-controlled No fever, cough, or dyspnea Review of Systems Review of Systems: Yes all other systems are reviewed and are negative Physical Exam Vital Signs: Vital Signs: Last Vital Signs Temp 97.8 F 01/31/22 11:48 Pulse 75 01/31/22 11:48 Resp 20 01/31/22 11:48 BP 101/57 L 01/31/22 11:48 Pulse Ox 99 01/31/22 11:48 O2 Del Method 01/31/22 12:00 BMI result Body Mass Index 22.4 Gen: in no acute distress HEENT: sclera anicteric, moist mucus membranes Neck: supple Lungs: clear to auscultation bilaterally Heart: regular rate and rhythm, no murmurs Abd: soft, non-tender, non-distended Ext: no edema Skin: warm/well-perfused Neuro: alert and oriented x3, no focal findings Psych: appropriate affect Objective Data Active Medications Docusate Sodium (Docusate Sodium 100 Mg Capsule) 100 mg PO BID [facility] Last Admin: 01/31/22 08:31 Dose: 100 mg Documented By: MELY Donepezil HCl (Donepezil Hcl 10 Mg Tablet) 10 mg PO BEDTIME [facility] Last Admin: 01/30/22 21:12 Dose: 10 mg Documented By: CATRACHO Lidocaine (Lidocaine 4 % Patch Adh..Patch) 1 patch TRANSDERMA DAILY [facility]; Protocol Last Admin: 01/31/22 08:29 Dose: 1 patch Documented By: MELY Comments: right shoulder Mirtazapine (Mirtazapine 15 Mg Tablet) 45 mg PO BEDTIME [facility] Last Admin: 01/30/22 21:12 Dose: 45 mg Documented By: CATRACHO Omeprazole (Omeprazole 20 Mg Capsule.Dr) 20 mg PO DAILY@0630 [facility] Last Admin: 01/31/22 05:59 Dose: Not Given Documented By: CATRACHO Non-Admin Reason: Patient Refused Oxycodone HCl (Oxycodone Hcl Immed Release 5 Mg Tablet) 5 mg PO Q6H PRN PRN Reason: Pain, Severe (Pain Scale 7-10) Last Admin: 01/31/22 08:30 Dose: 5 mg Documented By: MELY Pharmacy Consult (Consult Rx Perform Med Rec) 1 each MISCELLANE ONCE PRN PRN Reason: Consult order Senna (Sennosides 8.6 Mg Tablet) 17.2 mg PO Q24H PRN PRN Reason: constipation Sertraline HCl (Sertraline Hcl 100 Mg Tablet) 200 mg PO DAILY [facility] Last Admin: 01/31/22 08:28 Dose: 200 mg Documented By: MELY Sodium Chloride (0.9 % Sodium Chloride Flush 3 Ml Syringe) 3 ml IVFLUSH QSHIFT [facility] Last Admin: 01/30/22 21:12 Dose: 3 ml Documented By: CATRACHO Trazodone HCl (Trazodone Hcl 25 Mg Halftab) 25 mg PO BEDTIME PRN PRN Reason: Insomnia Last Admin: 01/30/22 21:12 Dose: 25 mg Documented By: CATRACHO Vitamin D (Cholecalciferol (Vitamin D3) 25 Mcg Tablet) 50 mcg PO DAILY [facility] Last Admin: 01/31/22 08:28 Dose: 50 mcg Documented By: MELY Labs CBC & Chem 7: 01/18/22 06:22 01/16/22 05:44 Assessment and Plan (1) Dementia: Status: Acute (2) HTN (hypertension): Status: Acute (3) Diabetes: Status: Acute (4) COVID-19: Status: Acute Plan day#19 81yo F presented after falling, admitted for R-sided rib fxs + pelvic fx with pelvic hematoma incidentally Covid-19 positive but completely asymptomatic #?pelvic fx (moderately displaced R pubic bone + mildly displaced posterior R iliac bone) with hematoma - prn oxycodone, per Orthopedics, non-surgical and recommend NWB x 6 wk on right side - H+H stable - monitor for urinary retention given mass effect on bladder - PT reassesment: STR still recommended #?R 6th + 7th rib fractures - prn oxycodone, incentive spirometry, lidocaine patch # scalp laceration - mychal removed #?Covid-19 positive - maintain isolation, unclear timeline, completely asymptomatic, still positive 01/25/22 but asymptomatic, ID consult requested by [facility] re: isolation recommenndations #?thrombocytopenia - resolving #?HTN, hx - currently normotensive off amlodipine, continue to hold ?# DM2, hx - A1c only 5.6, no therapy indicated #?dementia - likely at baseline, suspected Alzheimer's - continue donepezil, sertraline, mirtazapine ?# chronic ILD - noted on CT chest, currently without symptoms # ?hyperK - resolved #?VTE ppx - SCDs, no heparinoids due to hematoma In my clinical judgment, the patient requires continued hospitalization for the following reasons: safe discharge Quality Stroke Does the patient have a stroke diagnosis?: No VTE Prior VTE?: No VTE Risk Level:: Medical - moderate - high VTE Device Contraindication: N/A - Device Ordered VTE Drug Contraindication: Treatment Not Tolerated
[2022-01-31 15:27] VITALS: BP 112/86; PULSE 87; RESP 18; TEMP 37.1; O2SAT 98
[2022-01-31] MEDS: 0.9 % Sodium Chloride Flush 3 ML SYRINGE IVFLUSH ×3 (17:01→20:26)
[2022-01-31 19:48] VITALS: BP 138/81; PULSE 81; RESP 18; TEMP 36.4; O2SAT 97
[2022-01-31] MEDS: Donepezil HCl 10 MG TABLET PO (20:24)
[2022-01-31] MEDS: Mirtazapine 15 MG TABLET 45 MG PO (20:24)
[2022-01-31 23:32] VITALS: BP 104/59; PULSE 84; RESP 18; TEMP 36.4; O2SAT 96
[2022-02-01 04:00] VITALS: BP 111/72; PULSE 90; RESP 18; TEMP 35.7; O2SAT 97
[2022-02-01 08:00] VITALS: BP 107/59; PULSE 92; RESP 18; TEMP 36.4; O2SAT 98
[2022-02-01] MEDS: Sertraline HCL 100 MG TABLET 200 MG PO (09:00)
[2022-02-01] MEDS: Cholecalciferol (Vitamin D3) 25 MCG TABLET 50 MCG PO (09:04)
[2022-02-01] MEDS: Docusate Sodium 100 MG CAPSULE PO ×2 (09:05→20:08)
[2022-02-01] MEDS: Lidocaine 4 % Patch ADH..PATCH 1 PATCH TRANSDERMA (09:05)
[2022-02-01 11:35] VITALS: BP 103/60; PULSE 95; RESP 18; TEMP 37.2; O2SAT 99
--- NOTE | 2022-02-01 15:32 | W.PM.IDCN ---
History of Present Illness Data of Consult Service Date: 02/01/22 Requesting physician: Zaheer Haskins Primary Care Provider: Unknown Physician HPI Reason for consult: positive COVID test She presents with weakness and fall and found to have hip fracture. She has no fever or chills. She is not hypoxic. She has COVID swab repeatedly positive from arrival 01/13 to present. Review of Systems Review of Systems: Yes Unobtainable due to mental status PMFSH Past Medical History Medical History GERD (gastroesophageal reflux disease) Family History Family History Sister Epilepsy Family history: reviewed and not pertinent Social History Social History Household Members: None Housing: Apartment Do you presently have visiting nurse or other home services: No Patient Tobacco Use Status: Never used Tobacco Use of substances other than those prescribed or required for medical reasons: No Currently Displaying Signs/Symptoms of Drug Intoxication Withdrawal: No Have you been hit, kicked, punched, or otherwise hurt by someone within the past year? If so, by whom?: No Do you feel safe in your current relationship?: No Current Relationship Is there a partner from a previous relationship who is making you feel unsafe now?: No Are you made to feel afraid or neglected: No Advance Directives: No Advance Directives Information Provided: No Do you have thoughts of harming others: None Do you have a plan to hurt others: No Plan Recently lost weight without trying: Unsure Nutrition Risks: No Nutritional Risk service: No Current occupational status: disabled Meds Allergies Allergy/AdvReac Type Severity Reaction Status Date / Time acetaminophen [Percocet] Allergy Mild denies Verified 01/13/22 10:35 oxycodone [Percocet] Allergy Mild denies Verified 01/13/22 10:35 Active Medications: Current Medications Docusate Sodium (Docusate Sodium 100 Mg Capsule) 100 mg PO BID [facility] Last Admin: 02/01/22 09:05 Dose: 100 mg Donepezil HCl (Donepezil Hcl 10 Mg Tablet) 10 mg PO BEDTIME [facility] Last Admin: 01/31/22 20:24 Dose: 10 mg Lidocaine (Lidocaine 4 % Patch Adh..Patch) 1 patch TRANSDERMA DAILY [facility]; Protocol Last Admin: 02/01/22 09:05 Dose: 1 patch Mirtazapine (Mirtazapine 15 Mg Tablet) 45 mg PO BEDTIME [facility] Last Admin: 01/31/22 20:24 Dose: 45 mg Omeprazole (Omeprazole 20 Mg Capsule.Dr) 20 mg PO DAILY@0630 [facility] Last Admin: 02/01/22 06:40 Dose: Not Given Oxycodone HCl (Oxycodone Hcl Immed Release 5 Mg Tablet) 5 mg PO Q6H PRN PRN Reason: Pain, Severe (Pain Scale 7-10) Last Admin: 01/31/22 08:30 Dose: 5 mg Pharmacy Consult (Consult Rx Perform Med Rec) 1 each MISCELLANE ONCE PRN PRN Reason: Consult order Senna (Sennosides 8.6 Mg Tablet) 17.2 mg PO Q24H PRN PRN Reason: constipation Sertraline HCl (Sertraline Hcl 100 Mg Tablet) 200 mg PO DAILY [facility] Last Admin: 02/01/22 09:00 Dose: 200 mg Sodium Chloride (0.9 % Sodium Chloride Flush 3 Ml Syringe) 3 ml IVFLUSH QSHIFT [facility] Last Admin: 02/01/22 15:11 Dose: Not Given Trazodone HCl (Trazodone Hcl 25 Mg Halftab) 25 mg PO BEDTIME PRN PRN Reason: Insomnia Last Admin: 01/30/22 21:12 Dose: 25 mg Vitamin D (Cholecalciferol (Vitamin D3) 25 Mcg Tablet) 50 mcg PO DAILY [facility] Last Admin: 02/01/22 09:04 Dose: 50 mcg Home Medications Medication Instructions Recorded Confirmed Last Taken Type amlodipine 5 mg tablet 1 tab PO BEDTIME 01/13/22 01/13/22 01/12/22 History cholecalciferol (vitamin D3) 50 1 cap PO QAM 01/13/22 01/13/22 01/12/22 History mcg (2,000 unit) capsule donepezil 10 mg tablet 1 tab PO BEDTIME 01/13/22 01/13/22 01/12/22 History mirtazapine 45 mg tablet 1 tab PO BEDTIME 01/13/22 01/13/22 01/12/22 History omeprazole 20 mg capsule,delayed 1 cap PO QAM 01/13/22 01/13/22 01/12/22 History release sertraline 100 mg tablet 2 tab PO QAM 01/13/22 01/13/22 01/12/22 History trazodone 50 mg tablet 0.5 tab PO BEDTIME PRN Insomnia 01/13/22 01/13/22 01/12/22 History Physical Exam Vital Signs: Vital Signs: Last Vital Signs Temp 98.9 F 02/01/22 11:35 Pulse 95 02/01/22 11:35 Resp 18 02/01/22 11:35 BP 103/60 02/01/22 11:35 Pulse Ox 99 02/01/22 11:35 O2 Del Method 02/01/22 11:35 BMI result Body Mass Index 22.4 Const: General: cooperative HEENT: Head: Yes normal to inspection Resp: Effort & Inspection: normal respiratory effort Cardio: Rate: regular rate Rhythm: regular rhythm GI: Palpation (GI): nontender Results Labs CBC & Chem 7: 01/18/22 06:22 01/16/22 05:44 Assessment and Plan (1) COVID-19: Status: Acute She has persistently positive rapid antigen ID Now test She has no symptoms Even PCR test can be positive for months Plan May send on no COVID precautions since over 10 days. Contemplate PCR test check although likely still positive and can be positive for months despite inactive DNA.
[2022-02-01 15:43] VITALS: BP 114/68; PULSE 87; RESP 18; TEMP 37.1; O2SAT 98
--- NOTE | 2022-02-01 15:55 | PC.NURSE ---
Confirmed with Md that pt is to be non weight bearing and pt is to be discharged to a rehab facility when appropriate. Pt was assessed and informed with in home tutor at bedside. Pt stated she has previously gotten out of bed and moved to the chair and bedside commode. Pt educated on why she cannot get out of bed and bear weight to stand. Safety and fall precautions in place. Call workman within reach. Isolation precautions in place. XR was obtained.
--- NOTE | 2022-02-01 16:15 | P.PNIM_ITS ---
Subjective Subjective Date of Service: 02/01/22 Interval History: This history was taken in Albanian from the patient. Wishes to go home Unable to not bear weight on RLE without putting down her LLE as well Denies any pelvic pain No rib pain No cough No dyspnea Physical Exam Vital Signs: Vital Signs: Last Vital Signs Temp 98.7 F 02/01/22 15:43 Pulse 87 02/01/22 15:43 Resp 18 02/01/22 15:43 BP 114/68 02/01/22 15:43 Pulse Ox 98 02/01/22 15:43 O2 Del Method 02/01/22 15:43 BMI result Body Mass Index 22.4 Gen: in no acute distress HEENT: sclera anicteric, moist mucus membranes Neck: supple Lungs: clear to auscultation bilaterally Heart: regular rate and rhythm, no murmurs Abd: soft, non-tender, non-distended Ext: no edema Skin: warm/well-perfused Neuro: alert and oriented x3, no focal findings Psych: appropriate affect Objective Data Active Medications Docusate Sodium (Docusate Sodium 100 Mg Capsule) 100 mg PO BID [facility] Last Admin: 02/01/22 09:05 Dose: 100 mg Documented By: KARYNA Donepezil HCl (Donepezil Hcl 10 Mg Tablet) 10 mg PO BEDTIME [facility] Last Admin: 01/31/22 20:24 Dose: 10 mg Documented By: CATRACHO Lidocaine (Lidocaine 4 % Patch Adh..Patch) 1 patch TRANSDERMA DAILY [facility]; Protocol Last Admin: 02/01/22 09:05 Dose: 1 patch Documented By: KARYNA Mirtazapine (Mirtazapine 15 Mg Tablet) 45 mg PO BEDTIME [facility] Last Admin: 01/31/22 20:24 Dose: 45 mg Documented By: CATRACHO Omeprazole (Omeprazole 20 Mg Capsule.Dr) 20 mg PO DAILY@0630 [facility] Last Admin: 02/01/22 06:40 Dose: Not Given Documented By: CATRACHO Non-Admin Reason: Patient Refused Oxycodone HCl (Oxycodone Hcl Immed Release 5 Mg Tablet) 5 mg PO Q6H PRN PRN Reason: Pain, Severe (Pain Scale 7-10) Last Admin: 01/31/22 08:30 Dose: 5 mg Documented By: MELY Pharmacy Consult (Consult Rx Perform Med Rec) 1 each MISCELLANE ONCE PRN PRN Reason: Consult order Senna (Sennosides 8.6 Mg Tablet) 17.2 mg PO Q24H PRN PRN Reason: constipation Sertraline HCl (Sertraline Hcl 100 Mg Tablet) 200 mg PO DAILY [facility] Last Admin: 02/01/22 09:00 Dose: 200 mg Documented By: KARYNA Sodium Chloride (0.9 % Sodium Chloride Flush 3 Ml Syringe) 3 ml IVFLUSH QSHIFT [facility] Last Admin: 02/01/22 15:11 Dose: Not Given Documented By: KARYNA Non-Admin Reason: assessed Trazodone HCl (Trazodone Hcl 25 Mg Halftab) 25 mg PO BEDTIME PRN PRN Reason: Insomnia Last Admin: 01/30/22 21:12 Dose: 25 mg Documented By: CATRACHO Vitamin D (Cholecalciferol (Vitamin D3) 25 Mcg Tablet) 50 mcg PO DAILY [facility] Last Admin: 02/01/22 09:04 Dose: 50 mcg Documented By: KARYNA Labs CBC & Chem 7: 01/18/22 06:22 01/16/22 05:44 Assessment and Plan (1) Dementia: Status: Acute (2) HTN (hypertension): Status: Acute (3) Diabetes: Status: Acute (4) COVID-19: Status: Acute Plan day#20 81yo F presented after falling, admitted for R-sided rib fxs + pelvic fx with pelvic hematoma incidentally Covid-19 positive but completely asymptomatic #?pelvic fx (moderately displaced R pubic bone + mildly displaced posterior R iliac bone) with hematoma - prn oxycodone, per Orthopedics, non-surgical- clarify NWB status with Ortho. If she must be NWB, then she will have to go to STR since she cannot maintain NWB on her own - H+H stable #?R 6th + 7th rib fractures - prn oxycodone, incentive spirometry, lidocaine patch # scalp laceration - mychal removed #?Covid-19 positive - maintain isolation, unclear timeline, completely asymptomatic, still positive 01/25/22 but asymptomatic, per ID consult can go off isolation precautions #?thrombocytopenia - resolving #?HTN, hx - currently normotensive off amlodipine, continue to hold ?# DM2, hx - A1c only 5.6, no therapy indicated #?dementia - likely at baseline, suspected Alzheimer's - continue donepezil, sertraline, mirtazapine ?# chronic ILD - noted on CT chest, currently without symptoms # ?hyperK - resolved #?VTE ppx - SCDs, no heparinoids due to hematoma In my clinical judgment, the patient requires continued hospitalization for the following reasons: safe discharge Quality Stroke Does the patient have a stroke diagnosis?: No VTE Prior VTE?: No VTE Risk Level:: Medical - moderate - high VTE Device Contraindication: N/A - Device Ordered VTE Drug Contraindication: Treatment Not Tolerated
[2022-02-01 19:46] VITALS: BP 109/56; PULSE 71; RESP 18; TEMP 37.2; O2SAT 96
[2022-02-01] MEDS: 0.9 % Sodium Chloride Flush 3 ML SYRINGE IVFLUSH (20:08)
[2022-02-01] MEDS: Donepezil HCl 10 MG TABLET PO (20:08)
[2022-02-01] MEDS: Mirtazapine 15 MG TABLET 45 MG PO (20:08)
[2022-02-01 23:42] VITALS: BP 161/79; PULSE 58; RESP 15; TEMP 36.6; O2SAT 98
[2022-02-02 04:00] VITALS: BP 172/77; PULSE 81; RESP 15; TEMP 36.8; O2SAT 93
[2022-02-02 07:43] VITALS: BP 149/71; PULSE 65; RESP 16; TEMP 36.4; O2SAT 98
[2022-02-02] MEDS: Cholecalciferol (Vitamin D3) 25 MCG TABLET 50 MCG PO (09:03)
[2022-02-02] MEDS: Sertraline HCL 100 MG TABLET 200 MG PO (09:04)
[2022-02-02] MEDS: Omeprazole 20 MG CAPSULE.DR PO (09:04)
[2022-02-02] MEDS: Docusate Sodium 100 MG CAPSULE PO ×2 (09:04→20:28)
[2022-02-02] MEDS: 0.9 % Sodium Chloride Flush 3 ML SYRINGE IVFLUSH ×3 (09:05→20:28)
[2022-02-02] MEDS: Lidocaine 4 % Patch ADH..PATCH 1 PATCH TRANSDERMA (09:05)
--- NOTE | 2022-02-02 09:10 | PM.EVENT ---
Event Note Date of Service: 02/02/22 Event Note: X-rays obtained reveal continued superior and inferior pubic rami fracture which remains unstable. Weightbearing status remains the same as nonweighbearing from ortho perspective. 6-8 weeks NWB.
--- NOTE | 2022-02-02 10:01 | HO.PM.IMPN ---
Subjective Subjective Date of Service: 02/02/22 Interval History: cc: fall interval history:no complaints Cardiovascular Cardiovascular: Reports no additional cardiovascular complaints Respiratory Respiratory: Reports no additional respiratory complaints Physical Exam Vital Signs: Vital Signs: Last Vital Signs Temp 97.5 F 02/02/22 07:43 Pulse 65 02/02/22 07:43 Resp 16 02/02/22 07:43 BP 149/71 H 02/02/22 07:43 Pulse Ox 98 02/02/22 07:43 O2 Del Method 02/02/22 07:43 BMI result Body Mass Index 22.4 General: AO X 3, no acute distress Resp: CTA bilateral, no accessory muscles used CVS: S1,S2,RRR GI: soft, non tender, non distended Neuro: motor grossly intact, alert Psych: appropriate affect, appropriate insight Objective Data Active Medications Docusate Sodium (Docusate Sodium 100 Mg Capsule) 100 mg PO BID [facility] Last Admin: 02/02/22 09:04 Dose: 100 mg Documented By: KAROLINA Donepezil HCl (Donepezil Hcl 10 Mg Tablet) 10 mg PO BEDTIME [facility] Last Admin: 02/01/22 20:08 Dose: 10 mg Documented By: CORY Lidocaine (Lidocaine 4 % Patch Adh..Patch) 1 patch TRANSDERMA DAILY [facility]; Protocol Last Admin: 02/02/22 09:05 Dose: 1 patch Documented By: KAROLINA Mirtazapine (Mirtazapine 15 Mg Tablet) 45 mg PO BEDTIME [facility] Last Admin: 02/01/22 20:08 Dose: 45 mg Documented By: ANTMAYE Omeprazole (Omeprazole 20 Mg Capsule.) 20 mg PO DAILY@0630 [facility] Last Admin: 02/02/22 09:04 Dose: 20 mg Documented By: KAROLINA Pharmacy Consult (Consult Rx Perform Med Rec) 1 each MISCELLANE ONCE PRN PRN Reason: Consult order Senna (Sennosides 8.6 Mg Tablet) 17.2 mg PO Q24H PRN PRN Reason: constipation Sertraline HCl (Sertraline Hcl 100 Mg Tablet) 200 mg PO DAILY [facility] Last Admin: 02/02/22 09:04 Dose: 200 mg Documented By: KAROLINA Sodium Chloride (0.9 % Sodium Chloride Flush 3 Ml Syringe) 3 ml IVFLUSH QSHIFT [facility] Last Admin: 02/02/22 09:05 Dose: 3 ml Documented By: KAROLINA Trazodone HCl (Trazodone Hcl 25 Mg Halftab) 25 mg PO BEDTIME PRN PRN Reason: Insomnia Last Admin: 01/30/22 21:12 Dose: 25 mg Documented By: CATRACHO Vitamin D (Cholecalciferol (Vitamin D3) 25 Mcg Tablet) 50 mcg PO DAILY [facility] Last Admin: 02/02/22 09:03 Dose: 50 mcg Documented By: KAROLINA Labs CBC & Chem 7: 01/18/22 06:22 01/16/22 05:44 Assessment and Plan (1) Dementia: Status: Acute (2) HTN (hypertension): Status: Acute (3) Diabetes: Status: Acute (4) COVID-19: Status: Acute Plan day#21 81yo F presented after falling, admitted for R-sided rib fxs + pelvic fx with pelvic hematoma incidentally Covid-19 positive but completely asymptomatic #?pelvic fx (moderately displaced R pubic bone + mildly displaced posterior R iliac bone) with hematoma - prn oxycodone, per Orthopedics, non-surgical- NWB 6-8 weeks. - H+H stable #?R 6th + 7th rib fractures - prn oxycodone, incentive spirometry, lidocaine patch # scalp laceration - mychal removed #?Covid-19 positive - maintain isolation, unclear timeline, completely asymptomatic, still positive 01/25/22 but asymptomatic, per ID consult can go off isolation precautions #?thrombocytopenia - resolving #?HTN, hx - currently normotensive off amlodipine, continue to hold ?# DM2, hx - A1c only 5.6, no therapy indicated #?dementia - likely at baseline, suspected Alzheimer's - continue donepezil, sertraline, mirtazapine ?# chronic ILD - noted on CT chest, currently without symptoms # ?hyperK - resolved #?VTE ppx - SCDs, no heparinoids due to hematoma In my clinical judgment, the patient requires continued hospitalization for the following reasons: safe discharge Quality Stroke Does the patient have a stroke diagnosis?: No VTE Prior VTE?: No VTE Risk Level:: Medical - moderate - high VTE Device Contraindication: N/A - Device Ordered VTE Drug Contraindication: Treatment Not Tolerated
[2022-02-02 12:00] VITALS: BP 133/77; PULSE 93; RESP 16; TEMP 36.9; O2SAT 95
[2022-02-02 16:09] VITALS: BP 104/65; PULSE 86; RESP 16; TEMP 36.9; O2SAT 96
[2022-02-02 19:40] VITALS: BP 109/60; PULSE 70; RESP 16; TEMP 36.6; O2SAT 96
[2022-02-02] MEDS: Mirtazapine 15 MG TABLET 45 MG PO (20:28)
[2022-02-02] MEDS: Donepezil HCl 10 MG TABLET PO (20:28)
[2022-02-02 23:36] VITALS: BP 166/77; PULSE 77; RESP 16; TEMP 36.8; O2SAT 96
[2022-02-03] VITALS (7 sets, daily range): BP systolic 117–146; BP diastolic 61–83; PULSE 75–88; RESP 16–20; TEMP 36.1–37.2; O2SAT 96–97
[2022-02-03] MEDS: Omeprazole 20 MG CAPSULE.DR PO (05:34)
[2022-02-03] MEDS: Docusate Sodium 100 MG CAPSULE PO ×2 (10:27→20:17)
[2022-02-03] MEDS: Lidocaine 4 % Patch ADH..PATCH 1 PATCH TRANSDERMA (10:27)
[2022-02-03] MEDS: Cholecalciferol (Vitamin D3) 25 MCG TABLET 50 MCG PO (10:28)
[2022-02-03] MEDS: Sertraline HCL 100 MG TABLET 200 MG PO (10:28)
[2022-02-03] MEDS: 0.9 % Sodium Chloride Flush 3 ML SYRINGE IVFLUSH ×2 (10:29→20:17)
[2022-02-03 11:18] LABS: COVID-19 Test Negative (Negative)
--- NOTE | 2022-02-03 12:05 | MHC.CM.PN ---
Female 81 S/P fall non displaced pelvic FX Covid+ now recovered since 01/23/22 per ID. A bed search is in place. No bed offers, 37 referrals sent. [facility] has sent a list of in network providers. Many have declined this patient. Requested OON authorization from [facility]. I have been instructed by [facility] to extend the search out to [place] [facility]. Referrals have been sent.
--- NOTE | 2022-02-03 12:12 | HO.PM.IMPN ---
Subjective Subjective Date of Service: 02/03/22 Interval History: the patient was seen and evaluated this morning Laying in bed, feels comfortable Denies any fever, chills or shortness of breath No reported other overnight events. Systemic review: No fever, chills or weakness No chest pain, palpitation No shortness of breath or coughing No abdominal pain, nausea or vomiting No urinary symptoms No any rash or wounds Physical Exam Vital Signs: Vital Signs: Last Vital Signs Temp 97 F 02/03/22 11:26 Pulse 88 02/03/22 11:26 Resp 18 02/03/22 11:26 BP 118/83 02/03/22 11:26 Pulse Ox 97 02/03/22 11:26 O2 Del Method 02/03/22 11:26 BMI result Body Mass Index 22.4 Const: Other: Constitutional : Alert, oriented, not in distress Neck : Normal inspection, Supple Cardiovascular : no JVP, no lower extremity edema Respiratory : Chest wall moving bilaterally, , not in distress Gastrointestinal: soft, lax, Normal bowel sounds, Non tender Skin : Warm, Dry Neurological : Alert & No focal deficit Objective Data Active Medications Docusate Sodium (Docusate Sodium 100 Mg Capsule) 100 mg PO BID [facility] Last Admin: 02/03/22 10:27 Dose: 100 mg Documented By: SAM Donepezil HCl (Donepezil Hcl 10 Mg Tablet) 10 mg PO BEDTIME [facility] Last Admin: 02/02/22 20:28 Dose: 10 mg Documented By: ROS Lidocaine (Lidocaine 4 % Patch Adh..Patch) 1 patch TRANSDERMA DAILY [facility]; Protocol Last Admin: 02/03/22 10:27 Dose: 1 patch Documented By: SAM Mirtazapine (Mirtazapine 15 Mg Tablet) 45 mg PO BEDTIME [facility] Last Admin: 02/02/22 20:28 Dose: 45 mg Documented By: ROS Omeprazole (Omeprazole 20 Mg Capsule.) 20 mg PO DAILY@0630 [facility] Last Admin: 02/03/22 05:34 Dose: 20 mg Documented By: ROS Pharmacy Consult (Consult Rx Perform Med Rec) 1 each MISCELLANE ONCE PRN PRN Reason: Consult order Senna (Sennosides 8.6 Mg Tablet) 17.2 mg PO Q24H PRN PRN Reason: constipation Sertraline HCl (Sertraline Hcl 100 Mg Tablet) 200 mg PO DAILY [facility] Last Admin: 02/03/22 10:28 Dose: 200 mg Documented By: SAM Sodium Chloride (0.9 % Sodium Chloride Flush 3 Ml Syringe) 3 ml IVFLUSH QSHIFT [facility] Last Admin: 02/03/22 10:29 Dose: 3 ml Documented By: SAM Trazodone HCl (Trazodone Hcl 25 Mg Halftab) 25 mg PO BEDTIME PRN PRN Reason: Insomnia Last Admin: 01/30/22 21:12 Dose: 25 mg Documented By: CATRACHO Vitamin D (Cholecalciferol (Vitamin D3) 25 Mcg Tablet) 50 mcg PO DAILY [facility] Last Admin: 02/03/22 10:28 Dose: 50 mcg Documented By: SAM Labs CBC & Chem 7: 01/18/22 06:22 01/16/22 05:44 Labs: Laboratory Results - last 24 hr 02/03/22 10:30 COVID-19 (DEANGELO) Negative COVID-19 Clin Com See Note Assessment and Plan (1) COVID-19: Status: Acute Plan day#22 81yo F presented after falling, admitted for R-sided rib fxs + pelvic fx with pelvic hematoma incidentally Covid-19 positive but completely asymptomatic #?pelvic fx (moderately displaced R pubic bone + mildly displaced posterior R iliac bone) with hematoma prn oxycodone, per Orthopedics, non-surgical- NWB 6-8 weeks. H+H stable #?R 6th + 7th rib fractures prn oxycodone, incentive spirometry, lidocaine patch # scalp laceration mychal removed #?Covid-19 positive maintain isolation, unclear timeline, completely asymptomatic, still positive 01/25/22 but asymptomatic, per ID consult can go off isolation precautions COVID retested negative #?thrombocytopenia resolving #?HTN, hx currently normotensive off amlodipine, continue to hold ?# DM2, hx A1c only 5.6, no therapy indicated #?dementia likely at baseline, suspected Alzheimer's continue donepezil, sertraline, mirtazapine ?# chronic ILD noted on CT chest, currently without symptoms # ?hyperK resolved #?VTE ppx SCDs, no heparinoids due to hematoma the patient requires continued hospitalization pending safe discharge plan. Quality Stroke Does the patient have a stroke diagnosis?: No VTE Prior VTE?: No VTE Risk Level:: Medical - moderate - high VTE Device Contraindication: N/A - Device Ordered VTE Drug Contraindication: Treatment Not Tolerated
--- NOTE | 2022-02-03 14:33 | P.DS_ITS ---
DS: Providers Provider Date of Service: 02/03/22 Date of admission: 01/13/22 14:55 Primary care physician: Unknown Physician Consults: 01/31/22 13:48 Consult to Infectious Diseases Routine Consulting Provider: Nayeli Cotter Reason for consultation: SNF request re: isolation duration for asymptomatic Covid-19 patient 02/01/22 10:54 Consult to Orthopedics Routine Consulting Provider: [facility] Reason for consultation: clarify WB status- pelvic fx DS: Diagnosis Discharge Diagnosis (1) COVID-19: Status: Acute (2) Orthostasis: Status: Acute (3) Laceration of scalp: Status: Acute (4) Closed rib fracture: Status: Acute (5) Closed fracture of iliac wing: Status: Acute (6) Pubic bone fracture: Status: Acute DS: Summary Hospital Course Hospital Course: The patient has prolonged hospital stay. For full details please returned to EMR. Admission note HPI 81F poor hisotrian due to dementia, history from patient, and son who did not witness event. patient reports on evening ptp, she was getting up from couch to use restroom and tripped hitting her head on the table and falling, due to pain and weakness on her right side she was unable to get up. patient normally lives with her son who is currently hospitalized. another son came to check on her and patient was on floor, ems was called. patient denies LOC. in ED laceration to head was closed with mychal. CT showed right sided rib fractures, moderately displaced right pubic bone fracture with soft tissue hemorrhage and mildly displaced fracture of posterior right iliac bone. incidentally found to be covid positive, asymptomatic, unknown vaccination status. Hospital course The patient was admitted to the hospital after sustaining a fall. Found to have right-sided rib fractures of the 6th and 7th ribs with evidence of pelvic fracture and pelvic hematoma with mildly displaced posterior right iliac bone. The patient was admitted for pain management which was achieved by oxycodone as needed as she was evaluated by Orthopedic team who recommended no surgeries and nonweightbearing for 6-8 weeks. Hemoglobin level remained stable with no drop during the hospital stay. Rib fracture pain was controlled with incentive spirometry and lidocaine patches. She had a scalp laceration with mychal placed and removed during her hospital stay. There was an incidental finding of COVID positive infection. She was asymptomatic and did not require any active treatment during the hospital stay S she was seen by infectious disease specialist. Her blood pressure was noted to be solved. Amlodipine was held for possible orthostatic hypotension with improvement of the blood pressure back to normal level. Evaluated by Physical therapy who recommended short-term rehab with nonweightbearing on the right leg for 6-8 weeks. Time Spent with Patient Time attestation: Total time spent providing and/or coordinating discharge services: Discharge coordination time: Greater than 30 minutes Quality: Safe Use of Opioids Does Pt have an Active Cancer Diagnosis on the Problem List?: No Quality: Stroke Does the patient have a stroke diagnosis?: No Physical Exam Vital Signs: Vital Signs: Last Vital Signs Temp 97 F 02/03/22 11:26 Pulse 88 02/03/22 14:15 Resp 18 02/03/22 11:26 BP 118/83 02/03/22 14:15 Pulse Ox 97 02/03/22 14:15 O2 Del Method 02/03/22 11:26 BMI result Body Mass Index 22.4 Const: Other: Constitutional : Alert, oriented, not in distress Neck : Normal inspection, Supple Cardiovascular :? no JVP, no lower extremity edema Respiratory :? Chest wall moving bilaterally,? , not in distress Gastrointestinal:? soft, lax, Normal bowel sounds, Non tender Skin : Warm, Dry Neurological : Alert &? No focal deficit DS: Data Data Completed and Pending Labs on day of discharge: Laboratory Results - last 24 hr 02/03/22 10:30 COVID-19 (DEANGELO) Negative COVID-19 Clin Com See Note Imaging Chest x-ray: Radiologist's impression: ITS Impressions Abdomen/Pelvis CT 01/13/22 12:10 IMPRESSION: * Acute, mildly displaced fracture of the right lateral sixth rib and probable nondisplaced fracture of adjacent seventh rib. No pleural effusion or pneumothorax. * Chronic interstitial lung disease. * Acute, moderately displaced right pubic bone fractures with associated soft tissue hemorrhage involving space of Retzius with hematoma exerting mild mass effect upon urinary bladder. Also, there is a mildly displaced fracture of the posterior right iliac bone. * Old moderate compression fracture of T12 vertebral body. No acute vertebral fractures. * Colonic diverticulosis without diverticulitis. * Cardiomegaly. Mildly dilated ascending thoracic aorta is 4.2 cm diameter. Cervical Spine CT 01/13/22 12:10 IMPRESSION: No fracture or dislocation. Mild degenerative changes. Fleischner guidelines were followed. Chest CT 01/13/22 12:10 IMPRESSION: * Acute, mildly displaced fracture of the right lateral sixth rib and probable nondisplaced fracture of adjacent seventh rib. No pleural effusion or pneumothorax. * Chronic interstitial lung disease. * Acute, moderately displaced right pubic bone fractures with associated soft tissue hemorrhage involving space of Retzius with hematoma exerting mild mass effect upon urinary bladder. Also, there is a mildly displaced fracture of the posterior right iliac bone. * Old moderate compression fracture of T12 vertebral body. No acute vertebral fractures. * Colonic diverticulosis without diverticulitis. * Cardiomegaly. Mildly dilated ascending thoracic aorta is 4.[address] 01/13/22 12:14 IMPRESSION: No acute findings. Mild generalized atrophy and nonspecific periventricular white matter disease. Degenerative changes at the right temporomandibular joint. Pelvis X-Ray 02/01/22 14:35 IMPRESSION: No change in the right superior and inferior pubic rami fractures near the pubic symphysis. Nondisplaced right iliac bone fracture difficult to appreciate by x-ray. Discharge Plan Discharge Patient Disposition: [facility] Discharge Diagnosis: Fall Pelvic fracture Ribs fracture [facility]: [facility] [Outside] - 1 Week Physician,Sarkis J [Primary Care Provider] - 1 Week Discharge Medications: Continued trazodone 50 mg tablet 0.5 tab PO BEDTIME PRN (Reason: Insomnia) donepezil 10 mg tablet 1 tab PO BEDTIME sertraline 100 mg tablet 2 tab PO QAM omeprazole 20 mg capsule,delayed release(DR/EC) 1 cap PO QAM mirtazapine 45 mg tablet 1 tab PO BEDTIME cholecalciferol (vitamin D3) 50 mcg (2,000 unit) capsule 1 cap PO QAM Discontinued amlodipine 5 mg tablet 1 tab PO BEDTIME Discharge Orders: Discharge Order (Routine); Ordered 02/03/22 Ordered By: Alecia Monzon Diet: advance to usual diet Activity on Discharge: As tolerated Stand Alone Forms: Patient Portal Discharge page Care Plan Goals: Read below Health Concerns: Read below Plan of Treatment: Read below Assessment: You were admitted to the hospital after a fall. Found to have multiple fractures in the ribs with pelvic fracture that was evaluated by Orthopedic team who recommended non weight-bearing for 6-8 weeks. You were found to have COVID-19 infection. did not require any treatment for i t. Blood pressure was noted to be running low. Amlodipine was held with improvement in your blood pressure. To be discharged to [facility] Discontinue amlodipine
[2022-02-03] MEDS: Donepezil HCl 10 MG TABLET PO (20:17)
[2022-02-03] MEDS: Mirtazapine 15 MG TABLET 45 MG PO (20:17)
[2022-02-04 03:23] VITALS: BP 127/69; PULSE 88; RESP 18; TEMP 36.1; O2SAT 98
[2022-02-04 08:00] VITALS: BP 114/59; PULSE 84; RESP 20; O2SAT 97
[2022-02-04] MEDS: Lidocaine 4 % Patch ADH..PATCH 1 PATCH TRANSDERMA (08:25)
[2022-02-04] MEDS: Sertraline HCL 100 MG TABLET 200 MG PO (08:25)
[2022-02-04] MEDS: Docusate Sodium 100 MG CAPSULE PO (08:25)
[2022-02-04] MEDS: Cholecalciferol (Vitamin D3) 25 MCG TABLET 50 MCG PO (08:25)
[2022-02-04] MEDS: 0.9 % Sodium Chloride Flush 3 ML SYRINGE IVFLUSH (08:26)
--- NOTE | 2022-02-04 10:21 | MHC.CM.PN ---
Patient was not dc yesterday as planned; it appears to be related to transportation issues. Patient will dc to [facility] today at 1 PM, via [facility]. RN and Son/Neil @ [phone] have been made aware of changes.
[2022-02-04 12:00] VITALS: RESP 20
[2022-02-04 15:40] VITALS: BP 158/62; PULSE 92; RESP 18; TEMP 37.2; O2SAT 97
--- NOTE | 2022-02-04 17:58 | PC.NURSE ---
Alert and responsive. Denies pain, vss, afebrile, no acute resp. distress noted. Family at bedside for most of the day. Patient discharge to [facility] in [place] around 1700. left via stretcher with 2 powder hand. Report called in to facility nurse Jerome.
== END 2022-02-04 17:46 | disposition skilled nursing facility (03) | DRG 535 ==
LOC: HO.ED 13:52 → HO.EDOVER 15:13 → HO.IMC 01-14 18:48
PROVIDERS: Family Medicine; Internal Medicine; Admitting Provider Internal Medicine; Emergency Provider Emergency Medicine; Visit Provider Student in an Organized Health Care Education/Training Program
DX: S32.501A Unspecified fracture of right pubis, initial encounter for closed fracture (principal); U07.1 COVID-19; S22.41XA Multiple fractures of ribs, right side, initial encounter for closed fracture; J84.9 Interstitial pulmonary disease, unspecified; S01.01XA Laceration without foreign body of scalp, initial encounter; W18.30XA Fall on same level, unspecified, initial encounter; E87.5 Hyperkalemia; G30.9 Alzheimer's disease, unspecified; F02.80 Dementia in other diseases classified elsewhere, unspecified severity, without behavioral disturbance, psychotic disturbance, mood disturbance, and anxiety; I95.1 Orthostatic hypotension; D69.6 Thrombocytopenia, unspecified; K21.9 Gastro-esophageal reflux disease without esophagitis; I10 Essential (primary) hypertension; Z88.5 Allergy status to narcotic agent; Z88.6 Allergy status to analgesic agent; Z79.899 Other long term (current) drug therapy
CPT/HCPCS: 36415; 70450; 71250; 72125; 72170; 74176; 80048; 80076; 82550; 83036; 83690; 83735; 84484; 85014; 85018; 85025; 85027; 85049; 85610; 85730; 86140; 87635; 90471; 90715; 93005; 96361; 96374; 96375; 97110; 97116; 97162; 97530; 99285; J2270; J2405

== ENCOUNTER 2022-04-10 15:22 | Outpatient (REF) | payer OTHER, SELFPAY ==
[2022-04-10 15:42] LABS: MANUAL DIFF FLAG NO
[2022-04-10 16:50] LABS: Basophils Absolute Auto 0.1 X10*3/uL (0.0-0.2); Basophils Percent Auto 0.6 % (0-2); Eosinophils Absolute Auto 0.1 X10*3/uL (0.0-0.4); Hematocrit 37.3 % (37.0-47.0); Hemoglobin 11.7 g/dl (12.0-16.0); Imm Gran Abs Auto 0.03 X10*3/uL (0.00-0.03); Imm Gran Pct Auto 0.4 % (0.0-0.4); Lymphocytes Absolute Auto 1.8 X10*3/uL (1.2-4.9); Lymphocytes Percent Auto 21.6 % (20-40); Mean Corpuscular HGB Conc 31.4 g/dl (31.0-35.0); Mean Corpuscular Hemoglobin 29.5 pg (27.0-33.0); Mean Platelet Volume 10.7 fL (9.4-12.3); Monocytes Absolute Auto 0.5 X10*3/uL (0.1-1.2); Monocytes Percent Auto 6.1 % (2-11); Neutrophils Absolute Auto 5.9 x10*3/uL (2.0-8.3); Neutrophils Percent Auto 70.3 % (45-73); Platelet Count 203 X10*3/uL (160-400); Red Blood Count 3.97 X10*6/uL (4.20-5.50); Red Cell Distribution Width 12.9 % (11.0-16.0); White Blood Count 8.4 X10*3/uL (4.8-10.8)
[2022-04-10 17:16] LABS: Alanine Aminotransferase 12 U/L (0-31); Albumin Level 4.3 g/dL (3.5-5.0); Alkaline Phosphatase 88 U/L (39-117); Anion Gap 15 (12-20); Aspartate Amino Transferase 23 U/L (5-31); Bilirubin Total 0.5 mg/dL (0.0-1.0); Blood Urea Nitrogen 36 mg/dL (9-16); Calcium 9.8 mg/dL (8.4-10.2); Carbon Dioxide 29 mmol/L (22-29); Chloride 101 mmol/L (96-108); Estimated Glomerular Filt Rate 40; Glucose Random 112 mg/dL (60-115); Potassium 5.3 mmol/L (3.3-5.1); Sodium 140 mmol/L (135-145); Total Protein 7.6 g/dL (6.5-8.0)
== END 2022-04-10 15:23 | disposition home or self-care (01) ==
LOC: HO.LAB 15:22
PROVIDERS: Visit Provider Internal Medicine Hypertension Specialist
DX: I12.9 Hypertensive chronic kidney disease with stage 1 through stage 4 chronic kidney disease, or unspecified chronic kidney disease (principal); N18.2 Chronic kidney disease, stage 2 (mild)
CPT/HCPCS: 36415; 80053; 85025

== ENCOUNTER 2022-05-26 10:01 | Outpatient (REF) | payer OTHER, SELFPAY ==
--- NOTE | ~2022-05-26 | US_ITS ---
EXAMINATION: US RETROPERITONEAL LIMITED (RENAL ONLY) CLINICAL INFORMATION: CKD stage 2, hypertension. COMPARISON: CT abdomen and pelvis 01/13/2022. Ultrasound abdomen complete 08/16/2017. X-ray KUB 09/08/2016. Renal ultrasound 04/28/2016. TECHNIQUE: Real-time imaging of the kidneys. FINDINGS: RIGHT KIDNEY: 8.6 x 3.2 x 4.2 cm (SAG x AP x TRV). The kidney is normal in size, contour, and echogenicity. Renal cortical thickness is normal. There is a 2 mm echogenic focus in the midpole artifact suggestive of a stone. No focal parenchymal lesions or hydronephrosis. LEFT KIDNEY: 8.9 x 4.4 x 3.9 cm (SAG x AP x TRV). The kidney is normal in size, contour, and echogenicity. There is focal cortical thinning or scarring in the lower pole. Renal cortical thickness is otherwise normal. There are 2 2 mm echogenic foci with twinkle artifact in the lower pole suggestive of small stones. No focal parenchymal lesions or hydronephrosis. US/US renal BI IMPRESSION: Small bilateral renal stones. Focal cortical thinning or scarring in the left lower pole.
== END 2022-05-26 10:02 | disposition home or self-care (01) ==
LOC: HO.US 10:01
PROVIDERS: Visit Provider Internal Medicine Hypertension Specialist
DX: I12.9 Hypertensive chronic kidney disease with stage 1 through stage 4 chronic kidney disease, or unspecified chronic kidney disease (principal); N18.2 Chronic kidney disease, stage 2 (mild)
CPT/HCPCS: 76775

== ENCOUNTER 2022-11-27 14:25 | Outpatient (REF) | payer OTHER, SELFPAY ==
--- NOTE | ~2022-11-27 | CT_ITS ---
EXAMINATION: CT ABDOMEN AND PELVIS WITHOUT CONTRAST CLINICAL INFORMATION: Abdominal pain. Suspect appendicitis. Chronic kidney disease stage III. COMPARISON: Previous CT of the abdomen and pelvis most recent December 2021 TECHNIQUE: Multidetector volumetric imaging was performed from the superior aspect of the liver through the pubic symphysis. Sagittal and coronal reformatted images were obtained on the technologist's workstation. This CT examination was performed using dose optimization techniques as appropriate, variously including the following: *Automated exposure control *Adjustment of mA and/or kV according to patient size (this includes techniques or standardized protocols for targeted exams where dose is matched to indication/reason for exam; i.e. extremities or head) *Use of iterative reconstruction technique DLP: 253 mGy-cm FINDINGS: LUNG BASES: The visualized lung bases are clear. The heart is enlarged. The descending thoracic aorta is tortuous. LIVER, GALLBLADDER, AND BILIARY TREE: The liver is normal in size, shape, and attenuation. No focal hepatic lesion or biliary ductal dilatation is present. The gallbladder has been removed. PANCREAS: Unremarkable. SPLEEN: Unremarkable. ADRENAL GLANDS: Unremarkable. KIDNEYS AND URETERS: Small 1 to 2 mm right lower pole renal stone. Kidneys are otherwise normal. No hydronephrosis, ureteral dilatation or ureteral stone seen. BLADDER: Not optimally distended. GASTROINTESTINAL TRACT: Diverticulosis of the colon. No evidence of diverticulitis. Question wall thickening of the distal sigmoid colon and rectum. Normal appendix. Normal small bowel. Normal stomach. ABDOMINAL WALL: No significant hernia is appreciated. LYMPH NODES: Normal. VASCULAR: Atherosclerotic disease. No aneurysm. PELVIC VISCERA: Unremarkable. OSSEOUS STRUCTURES: Scoliosis and degenerative changes of the spine. Old T12 vertebral body compression fracture. Old right superior and inferior pubic rami fractures. CT/CT abdomen pelvis wo IV con IMPRESSION: Small nonobstructing right renal stone. Normal appendix. Severe diverticulosis. No evidence of diverticulitis. Question mild wall thickening of the distal sigmoid colon and rectum. Fleischner guidelines were followed.
[2022-11-27] MEDS: Barium Sulfate Oral (Berry) 450 ML ORAL.SUSP 900 ML PO (16:29)
== END 2022-11-27 14:26 | disposition home or self-care (01) ==
LOC: HO.CT 14:25
PROVIDERS: PCP General Practice; Visit Provider General Practice
DX: R10.9 Unspecified abdominal pain (principal); N18.31 Chronic kidney disease, stage 3a
CPT/HCPCS: 74176

== ENCOUNTER 2023-05-16 16:23 | Outpatient (REF) | payer OTHER, SELFPAY ==
[2023-05-16 17:20] LABS: MANUAL DIFF FLAG NO
[2023-05-16 17:22] LABS: Basophils Percent Auto 0.4 % (0-2); Eosinophils Percent Auto 0.4 % (0-4); Hematocrit 35.5 % (37.0-47.0); Hemoglobin 11.5 g/dl (12.0-16.0); Imm Gran Abs Auto 0.01 X10*3/uL (0.00-0.03); Imm Gran Pct Auto 0.1 % (0.0-0.4); Lymphocytes Absolute Auto 1.8 X10*3/uL (1.2-4.9); Lymphocytes Percent Auto 25.5 % (20-40); Mean Corpuscular HGB Conc 32.4 g/dl (31.0-35.0); Mean Corpuscular Hemoglobin 31.1 pg (27.0-33.0); Mean Corpuscular Volume 95.9 fL (80.0-98.0); Mean Platelet Volume 9.9 fL (9.4-12.3); Monocytes Absolute Auto 0.4 X10*3/uL (0.1-1.2); Monocytes Percent Auto 6.1 % (2-11); Neutrophils Absolute Auto 4.7 x10*3/uL (2.0-8.3); Neutrophils Percent Auto 67.5 % (45-73); Platelet Count 154 X10*3/uL (160-400); Red Cell Distribution Width 12.4 % (11.0-16.0); White Blood Count 6.9 X10*3/uL (4.8-10.8)
[2023-05-16 17:49] LABS: Alanine Aminotransferase 11 U/L (0-31); Albumin Level 4.1 g/dL (3.5-5.0); Alkaline Phosphatase 57 U/L (39-117); Anion Gap 12 (12-20); Aspartate Amino Transferase 23 U/L (5-31); Bilirubin Total 0.5 mg/dL (0.0-1.0); Blood Urea Nitrogen 17 mg/dL (9-16); Calcium 9.4 mg/dL (8.4-10.2); Carbon Dioxide 32 mmol/L (22-29); Chloride 103 mmol/L (96-108); Cholesterol 177 mg/dL (<200); Estimated Glomerular Filt Rate > 60; Glucose Random 81 mg/dL (60-115); HDL Cholesterol 53 mg/dL (>40); LDL Cholesterol Calculated 100 mg/dL (<100); Potassium 4.3 mmol/L (3.3-5.1); Sodium 143 mmol/L (135-145); Total Protein 7.4 g/dL (6.5-8.0); Triglycerides 121 mg/dL (<150)
[2023-05-16 18:04] LABS: Erythrocyte Sedimentation Rate 10 MM/HR (0-20)
[2023-05-16 18:07] LABS: TSH reflex Free T4 1.75 uIU/mL (0.32-4.0)
== END 2023-05-16 16:24 | disposition home or self-care (01) ==
LOC: HO.HHCL 16:23
PROVIDERS: Visit Provider General Practice
DX: R22.1 Localized swelling, mass and lump, neck (principal); E11.43 Type 2 diabetes mellitus with diabetic autonomic (poly)neuropathy
CPT/HCPCS: 36415; 80053; 80061; 84443; 85025; 85652

== ENCOUNTER 2023-05-17 16:42 | Outpatient (REF) | payer OTHER, SELFPAY ==
[2023-05-17 18:36] LABS: Microalbum/Creatinine Ratio Ur 11.9 ug/mg cr (<30)
== END 2023-05-17 16:43 | disposition home or self-care (01) ==
LOC: HO.HHCL 16:42
PROVIDERS: Visit Provider General Practice
DX: E11.43 Type 2 diabetes mellitus with diabetic autonomic (poly)neuropathy (principal)
CPT/HCPCS: 82043; 82570

== ENCOUNTER → 2023-06-26 14:35 | Outpatient (REF) | payer OTHER, SELFPAY ==
--- NOTE | 2023-06-26 14:40 | CA_ITS ---
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 Mildly reduced LV ejection fraction 45-50% with impaired relaxation filling pattern 2. Moderately dilated left atrium 3. Mild aortic regurgitation 4. Upper limits of normal RV systolic pressure 5. Moderately dilated ascending aorta at 4.5 cm 6. No gross pericardial effusion Findings Left Ventricle Normal left ventricular cavity size. There is mildly increased left ventricular wall thickness. The left ventricular systolic function is mildly decreased. The visually estimated ejection fraction is between 45-50%. Spectral Doppler is indicative of an impaired relaxation filling pattern. E/E prime ratio is between 8 and 15 consistent with indeterminate filling pressures. Right Ventricle Normal right ventricular cavity size and systolic function. Atria The left atrium is moderately dilated. There is no evidence of interatrial shunt. The right atrium is likely dilated. Aortic Valve Normal aortic valve structure and function. There is no aortic valve stenosis. There is mild aortic valve regurgitation. Mitral Valve There is mild anterior and posterior mitral leaflet thickening. There is trace mitral valve regurgitation. There is no mitral valve stenosis. Pulmonic Valve The pulmonic valve is likely normal. There is trace to mild pulmonic valve regurgitation. Tricuspid Valve Normal tricuspid valve structure. There is mild tricuspid valve regurgitation. The right ventricular systolic pressure is 37 mmHg. Normal right atrial pressure. There is no evidence of pulmonary hypertension. Great Vessels The pulmonary artery was not well visualized. There is moderate dilatation of the ascending aorta measuring 4.50 cm. Venous The inferior vena cava is normal in size and collapses greater than 50% with inspiration. Pericardium/Pleural There is no evidence of pericardial effusion. Prior Study Comparison No prior study available for comparison. Measurements 2D Linear Measurements IVSd: 1.41 0.6-0.9/0.6-1.0 cm LVIDd: 4.60 3.9-5.3/4.2-5.9 cm LVIDd Index: 2.91 2.4-3.2/2.2-3.1 cm/m2 LVIDs: 3.21 2.0-3.6 cm LVPWd: 1.09 0.7-1.1 cm LA Diam: 3.70 2.7-3.8/3.0-4.0 cm LAIDs Index: 2.34 1.5-2.3 cm/m2 LV Mass: 271.00 67-162/88-224 g LV Mass Index: 171.52 43-95/49-115 g/m2 LVOT Diam: 2.30 3.0+(-)1.3 cm 2D Systolic Function EF 4C: 44.40 >55% EF 2C: 49.80 >55% EF BiP: 46.70 >55% Mitral Valve MV Pk E: 0.39 MV PK A: 0.71 MV Decel Time: 343.00 E/A: 0.60 E'Lateral: 3.05 E'Medial: 2.61 E/E' Med: 15.10 E/E' Lat: 12.90 PHT: 101.00 MVA PHT: 2.18 Decel [place]: 1.15 Aortic Valve AoV Pk John: 1.02 AoV Mn John: 0.72 AoV VTI: 0.25 AoV Pk Grad: 4.00 Aov Mn Grad: 2.00 JACK Cont.VTI: 2.24 AI Pk John: 3.95 AI [place]: 1.98 LVOT LVOT Pk John: 0.60 LVOT Mn John: 0.39 LVOT VTI: 0.13 LVOT Pk Grad: 1.00 LVOT Mn Grad: 1.00 LVOT Diam: 2.30 LVOT Area: 4.15 Diastolic Function MV Pk E: 0.39 MV Pk A: 0.71 E/A: 0.60 E'Medial: 2.61 E/E' Med: 15.10 E' Laterial: 3.05 E/E' Lat: 12.90 Right Ventricle TAPSE (mm): 28.10 TVS' John: 18.50 Tricuspid Valve TR Pk John: 2.90 TR Pk Grad: 34.00 RA Press: 3.00 RVSP: 37.00 Great Vessels Aorta Sinus of Valsalva: 4.50 2.0-3.[address] [place]: 3.26 1.7-3.4 cm Ao Asc: 4.50 2.1-3.4 cm Ao Arch: 2.90 Updated in Other Vendor System with Status of Final Seven Montoya MD electronically signed on 06/27/2023 4:07:12 PM with status of Final
== END ==
LOC: HO.CARD 14:35
PROVIDERS: PCP General Practice; Visit Provider General Practice
DX: I77.810 Thoracic aortic ectasia (principal)
CPT/HCPCS: 93306

== ENCOUNTER → 2023-06-26 14:40 | Outpatient (BNV) | payer OTHER, SELFPAY | PROVIDERS: PCP General Practice; Visit Provider Internal Medicine Cardiovascular Disease | DX: I35.1 Nonrheumatic aortic (valve) insufficiency (principal); I36.1 Nonrheumatic tricuspid (valve) insufficiency | CPT/HCPCS: 93306 ==

== ENCOUNTER 2023-07-07 12:20 | Emergency (ER) | payer OTHER, SELFPAY ==
--- NOTE | ~2023-07-07 | CT_ITS ---
EXAMINATION: CT abdomen pelvis w IV con CLINICAL INFORMATION: Reason for Exam abdominal pain weight loss nausea COMPARISON: Prior CT November 2022 TECHNIQUE: Multidetector volumetric imaging was performed from the superior aspect of the liver through the pubic symphysis 85 mL Omnipaque 350 injected Sagittal and coronal reformatted images were obtained on the technologist's workstation. This CT examination was performed using dose optimization techniques as appropriate, variously including the following: *Automated exposure control *Adjustment of mA and/or kV according to patient size (this includes techniques or standardized protocols for targeted exams where dose is matched to indication/reason for exam; i.e. extremities or head) *Use of iterative reconstruction technique DLP: 316 mGy-cm FINDINGS: LOWER THORAX: Mild interstitial peripheral changes at lung bases, peripheral honeycombing suggesting interstitial pneumonitis, interstitial pulmonary fibrosis. Heart is enlarged. HEPATOBILIARY: No focal hepatic lesions. No biliary ductal dilatation. GALLBLADDER: Gallbladder has been removed, dilated common bile duct 8 mm, fullness of the intrahepatic biliary system likely physiologic postcholecystectomy. SPLEEN: Spleen is normal in size. PANCREAS: No focal mass or ductal dilatation. STOMACH AND GASTROINTESTINAL TRACT: Stomach is grossly unremarkable. Heavy sigmoid diverticulosis, mild pericolic fat stranding suggesting probably mild acute diverticulitis. No evidence of abscess. No fistula or other complications. No CT evidence of appendicitis. ADRENALS: No adrenal nodules. KIDNEYS/URETERS: No hydronephrosis, stones or solid mass lesions. URINARY BLADDER: Partially decompressed. PELVIC VISCERA: Unremarkable PERITONEUM: No free air or fluid. LYMPH NODES: No lymphadenopathy. VASCULAR:There are vascular calcifications, no aneurysm. BONES, ABDOMINAL WALL AND SOFT TISSUES: Comminuted old partially healed right pubic rami fractures. 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 Compression fracture of T12 unchanged. CT/CT abdomen pelvis w IV con IMPRESSION: * Heavy sigmoid diverticulosis, mild pericolic fat stranding suggesting MILD ACUTE DIVERTICULITIS. No evidence of abscess, no fistula or other complications. * Status post cholecystectomy, dilated common bile duct 8 mm, fullness of the intrahepatic biliary system likely physiologic postcholecystectomy. * Old partially healed right pubic rami fractures. Unchanged compression fracture of T12. * Other noncritical findings as above.
--- NOTE | 2023-07-07 12:41 | ED_ITS ---
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 She presents with her son and states her chronic abdominal pain worsened yesterday with nausea. Her abdomen hurts. No constipation or diarrhea. Has chronic weight loss. pain is long time . This is not new. MD elicited complaint: abdominal pain Pertinent past history: other (chronic pain for many years) Onset (ago): year(s) Pain Consistency: constant Location: diffuse Severity: moderate Quality: aching Radiation: none Migration to: no migration Exacerbating factors: eating Relieving factors: nothing Associated symptoms: nausea Related Data Home Medications Medication Instructions Recorded Confirmed cholecalciferol (vitamin D3) 50 1 cap PO QAM 01/13/22 01/13/22 mcg (2,000 unit) capsule donepezil 10 mg tablet 1 tab PO BEDTIME 01/13/22 01/13/22 mirtazapine 45 mg tablet 1 tab PO BEDTIME 01/13/22 01/13/22 omeprazole 20 mg capsule,delayed 1 cap PO QAM 01/13/22 01/13/22 release sertraline 100 mg tablet 2 tab PO QAM 01/13/22 01/13/22 trazodone 50 mg tablet 0.5 tab PO BEDTIME PRN Insomnia 01/13/22 01/13/22 Previous Rx's Medication Instructions Recorded amoxicillin 875 mg-potassium 1 tab PO BID #14 tabs 07/07/23 clavulanate 125 mg tablet ondansetron 4 mg disintegrating 4 mg PO Q8H PRN nausea and 07/07/23 tablet vomiting #20 tabs Allergies Allergy/AdvReac Type Severity Reaction Status Date / Time acetaminophen [Percocet] Allergy Mild denies Verified 07/07/23 12:41 oxycodone [Percocet] Allergy Mild denies Verified 07/07/23 12:41 Review of Systems Review of Systems Constitutional : pos Weight loss, No Fever, No Chills ENT/Mouth : No sore throat, No Rhinorrhea Eyes: No Swelling, No Redness Cardiovascular : No Chest Pain, No SOB, NoEdema Respiratory : No Cough, No Sputum, No Wheezing Gastrointestinal : Positive Nausea, no Vomiting, no Diarrhea, positive abdominal Pain, No Hematochezia, No Melena Genitourinary : No Dysuria, No Urinary Frequency, No Hematuria, No Urgency Musculoskeletal : No joint pain, No Myalgias, No Joint Swelling Skin : No Skin Lesions, No rash Neuro : No Weakness, No Numbness, No Dizziness, No Headache Psych : No Anxiety/Panic, No Depression Heme/Lymph: No Bruising, No Lymphadenopathy Endocrine : No Polyuria, No Polydipsia All other systems reviewed and are negative. [facility] Past Medical History Attestation statement: The following information was validated with the patient. Source: old records reviewed Medical History Pubic bone fracture Closed fracture of iliac wing Closed rib fracture GERD (gastroesophageal reflux disease) HTN (hypertension) Dementia Diabetes Family History Family History Sister Epilepsy Social History Social History Household Members: None Housing: Apartment Do you presently have visiting nurse or other home services: No Patient Tobacco Use Status: Never used Tobacco Smoked in Last 30 Days: No Use of substances other than those prescribed or required for medical reasons: No Advance Directives: Yes Advance Directives on File: Yes Advance Directives Date on File: 02/06/22 service: No Current occupational status: disabled Physical Exam ED Vital Signs: Vital Signs - 24 hr 07/07/23 12:42 07/07/23 13:40 Temperature 98.9 F 98.9 F Pulse Rate 84 58 Respiratory Rate 18 19 Blood Pressure 134/75 133/66 Pulse Oximetry 94 Oxygen Delivery Method Room Air BMI result Body Mass Index 24.3 Appearance: Alert. Oriented X3. No acute distress. Eyes: Pupils equal, round and reactive to light. ENT: Pharynx normal. Neck: Normal inspection. Neck supple. CVS: Normal heart rate and rhythm. Pulses normal. Respiratory: No respiratory distress. Breath sounds normal. Abdomen: Soft and mild diffuse ttp, old laparatomy scar Skin: Skin warm and dry. Normal skin color. Normal skin turgor. Extremities: No lower extremity edema. No calf ttp Neuro: Oriented X 3. No motor deficit. No sensory deficit. Course Course Course Narrative: This is an RME: Additional HPI, ROS, PE not included below will be deferred to primary provider. This is an 82-year-old Liberian-speaking female, the past medical history of dementia, GERD, diabetes, and hypertension, presenting to the emergency department complaints of right-sided abdominal pain. Reporting nausea and vomiting. Patient nontoxic appearing, vital signs within normal limits. Plan: Labs, further ER evaluation Reevaluation(s) Reevaluation #1: pain improved Medical Decision Making Medical Decision Making MDM Narrative: 82 yo female with PMH of dementia, HTN, laparatomy s/p emergency surgery at [facility] due to some complication from EGD 5 years ago here with worsening chronic abdominal pain and nausea x 24 hours she notes this has happened before. We have requested records from [facility] but no response and she and son have limited history. Given age and complaint will obtain labs, UA, and CT scan, low dose morphine for pain. Differential Diagnosis Differential Diagnoses: The differential diagnosis associated with the presentation includes mass, chronic pain, pacnreatitis, constipation Admission/Observation Consideration of admission/observation: Escalation of care including admission/observation considered not toxic, labs stable can be managed with oral antibiotics Lab Data [facility] Lab Attestation statement: I reviewed the patient's lab results. 07/07/23 13:33 07/07/23 13:33 Labs: Lab Results 07/07/23 07/07/23 Range/Units 13:33 15:01 WBC 6.5 (4.8-10.8) X10*3/uL RBC 3.76 L (4.20-5.50) X10*6/uL Hgb 11.8 L (12.0-16.0) g/dl Hct 36.0 L (37.0-47.0) % MCV 95.7 (80.0-98.0) fL MCH 31.4 (27.0-33.0) pg MCHC 32.8 (31.0-35.0) g/dl RDW 12.1 (11.0-16.0) % Plt Count 171 (160-400) X10*3/uL MPV 9.7 (9.4-12.3) fL Immature Gran % (Auto) 0.2 (0.0-0.4) % Neut % (Auto) 67.3 (45-73) % Lymph % (Auto) 23.9 (20-40) % [place] % (Auto) 7.4 (2-11) % Eos % (Auto) 0.6 (0-4) % Baso % (Auto) 0.6 (0-2) % Lymph # (Auto) 1.6 (1.2-4.9) X10*3/uL [place] # (Auto) 0.5 (0.1-1.2) X10*3/uL Eos # (Auto) 0.0 (0.0-0.4) X10*3/uL Baso # (Auto) 0.0 (0.0-0.2) X10*3/uL Abs Immat Gran (auto) 0.01 (0.00-0.03) X10*3/uL Absolute Neuts (auto) 4.4 (2.0-8.3) x10*3/uL Absolute Nucleated RBC 0.000 (0.0-0.012) X10*3/uL Nucleated RBC % (auto) 0.0 (0.0-0.2) /100WBC Sodium 141 (135-145) mmol/L Potassium 3.6 (3.3-5.1) mmol/L Chloride 103 (96-108) mmol/L Carbon Dioxide 31 H (22-29) mmol/L Anion Gap 11 L (12-20) BUN 18 H (9-16) mg/dL Creatinine 0.99 (0.5-1.4) mg/dL Estim Creat Clear Calc 29.1 Estimated GFR 53 Random Glucose 100 (60-115) mg/dL Calcium 9.3 (8.4-10.2) mg/dL Magnesium 1.8 (1.6-2.6) mg/dL Total Bilirubin 0.6 (0.0-1.0) mg/dL Direct Bilirubin 0.2 (0.0-0.5) mg/dL AST 22 (5-31) U/L ALT 11 (0-31) U/L Alkaline Phosphatase 51 (39-117) U/L Total Protein 7.3 (6.5-8.0) g/dL Albumin 4.0 (3.5-5.0) g/dL Lipase 25 (8-78) U/L Urine Color Yellow Urine Appearance Clear Urine pH 6.5 (5.0-9.0) Ur Specific [place] 1.015 (1.005-1.025) Urine Protein Negative (Neg-Trace) mg/dL Urine Glucose (UA) Negative (Negative) mg/dL Urine Ketones Negative (Negative) mg/dL Urine Blood Negative (Negative) Urine Nitrite Negative (Negative) Ur Leukocyte Esterase Trace H (Negative) Urine RBC 0-2 (0-2) /HPF Urine WBC 0-5 (0-5) /HPF Ur Squamous Epith Cells 0-2 (0-2) /HPF Urine Bacteria None Seen (None Seen) Hyaline Casts 0-2 (0-2) /LPF Independent Interpretation I performed an independent interpretation of an: CT Scan (diverticulitis) Radiology Impression Discussion of test interpretation with radiology: I have reviewed the radiologist's reading. Independent Historian Clinical information obtained from an independent historian. History obtained from or confirmed by: Other (son) Medications Administered Discontinued Medications Generic Name Dose Route Start Last Admin Trade Name Freq PRN Reason Stop Dose Admin Sodium Chloride 500 mls @ 500 mls/hr 07/07/23 14:00 07/07/23 15:20 Ns IV 07/07/23 14:59 Infused .Q1H JOSE FRANCISCO Infusion Iohexol 100 ml 07/07/23 15:13 07/07/23 15:13 Iohexol 350 Mg/Ml 100 Ml Infus..Btl IV 07/07/23 15:14 85 ml ONCE ONE Administration Morphine Sulfate 2 mg 07/07/23 13:56 07/07/23 14:20 Morphine Sulfate 2 Mg/Ml Cartridge IVPUSH 07/07/23 13:57 2 mg ONCE ONE Administration Protocol Ondansetron HCl 4 mg 07/07/23 13:56 07/07/23 14:20 Ondansetron Hcl 4 Mg/2 Ml Vial IVPUSH 07/07/23 13:57 4 mg ONCE ONE Administration Discharge Plan Discharge Clinical Impression: Diverticulitis Abdominal pain Qualifiers: Abdominal location: generalized Qualified Code(s): R10.84 - Generalized abdominal pain Patient Disposition: Home, Self-Care Instructions: Diverticulitis (ED), Abdominal Pain (ED) Additional Instructions: return for vomiting, worsening pain, fevers, inability to eat or drink, bloody stools or any other concerns. Regrese si tiene v?mitos, dolor que empeora, fiebre, incapacidad para comer o beber, heces con rea o cualquier otra inquietud. Prescriptions: New amoxicillin-pot clavulanate 875-125 mg tablet 1 tab PO BID Qty: 14 0RF ondansetron 4 mg tablet,disintegrating 4 mg PO Q8H PRN (Reason: nausea and vomiting) Qty: 20 0RF No Action trazodone 50 mg tablet 0.5 tab PO BEDTIME PRN (Reason: Insomnia) donepezil 10 mg tablet 1 tab PO BEDTIME sertraline 100 mg tablet 2 tab PO QAM omeprazole 20 mg capsule,delayed release(DR/EC) 1 cap PO QAM mirtazapine 45 mg tablet 1 tab PO BEDTIME cholecalciferol (vitamin D3) 50 mcg (2,000 unit) capsule 1 cap PO QAM Referrals: Marisabel Delaney MD [Primary Care Provider] - 3 days Print Language: Liberian
[2023-07-07 12:42] VITALS: BP 134/75; PULSE 84; RESP 18; TEMP 37.2; O2SAT 94; BMI 24.3
[2023-07-07 13:36] LABS: MANUAL DIFF FLAG NO
[2023-07-07 13:40] VITALS: BP 133/66; PULSE 58; RESP 19; TEMP 37.2
[2023-07-07 13:41] LABS: Basophils Percent Auto 0.6 % (0-2); Eosinophils Percent Auto 0.6 % (0-4); Hemoglobin 11.8 g/dl (12.0-16.0); Imm Gran Abs Auto 0.01 X10*3/uL (0.00-0.03); Imm Gran Pct Auto 0.2 % (0.0-0.4); Lymphocytes Absolute Auto 1.6 X10*3/uL (1.2-4.9); Lymphocytes Percent Auto 23.9 % (20-40); Mean Corpuscular HGB Conc 32.8 g/dl (31.0-35.0); Mean Corpuscular Hemoglobin 31.4 pg (27.0-33.0); Mean Corpuscular Volume 95.7 fL (80.0-98.0); Mean Platelet Volume 9.7 fL (9.4-12.3); Monocytes Absolute Auto 0.5 X10*3/uL (0.1-1.2); Monocytes Percent Auto 7.4 % (2-11); Neutrophils Absolute Auto 4.4 x10*3/uL (2.0-8.3); Neutrophils Percent Auto 67.3 % (45-73); Platelet Count 171 X10*3/uL (160-400); Red Blood Count 3.76 X10*6/uL (4.20-5.50); Red Cell Distribution Width 12.1 % (11.0-16.0); White Blood Count 6.5 X10*3/uL (4.8-10.8)
--- OUTSIDE RECORDS SUMMARY | 2023-07-07 13:43 | XMS_ITS | Continuity of Care Document ---
Author Name Unknown Organization [facility] Address [address] [place] [id number]- Care Team Providers Care Creative Recruiter Name Role Phone Breezy ARMSTRONG, Dipak Primary Care Physician [phone] Encounter [facility] Date(s): 09/22/20 - 09/22/[address] [address] Discharge Disposition: A-D/C Home Attending Physician: Richie Clancy MD Admitting Physician: Richie Clancy MD Referring Physician: Richie Clancy MD Allergies, Adverse Reactions, Alerts Substance Reaction Severity Status vancomycin Active Vicodin Active Percocet 7.5/325 ITCHING Active Immunizations Given and Recorded Vaccine Date Status Refusal Reason pneumococcal 13-valent vaccine 1 04/07/20 Given tetanus/diphtheria/pertussis, acel(Tdap) 04/07/20 Given influenza virus vaccine, inactivated 06/12/19 Give n influenza virus vaccine, inactivated 07/15/18 Give n influenza virus vaccine, inactivated 06/10/13 Give n influenza virus vaccine, inactivated 3 06/30/11 Gi naida influenza virus vaccine, inactivated 4 06/16/10 Gi naida influenza virus vaccine, inactivated 5 09/01/09 Gi naida FluLaval (oldterm) 6 06/13/12 Given Tetanus Toxoid 7 04/29/10 Given Pneumococcal Poly (PPV23) (oldterm) 8 09/01/09 Giv en Not Given Vaccine Date Status Refusal Reason pneumococcal 13-valent vaccine 08/04/18 Not Given Patient Refuses pneumococcal 13-valent vaccine 2 12/30/15 Not Give n Patient Refuses 1Result Comment: [facility] [id number] 2Admin Note: VIS GIVEN 03/14/2011 3Admin Note: VIS GIVEN-DATED 03/29/10 4Admin Note: VIS GIVEN-DATED 03/30/09 5Admin Note: pt tolerated 6Admin Note: VIS GIVEN 12/24 7Admin Note: VIS GIVEN-11/26 8Result Note: held due to scheduled stress test Medications dicyclomine 10 mg oral capsule See Instructions, 1 capsule By Mouth 4 times a day before meals and at bedtime, # 90 capsule, 11 Refills, Maintenance, 06/29/20 14:01:00 EST, Capsule, [facility], polish labels, 147.2, cm, 06/29/20 13:48:00 EST, Height, 57, kg, 11... Start Date: 06/29/20 Status: Ordered donepezil 10 mg oral tablet 10 mg, 1, tablet, By Mouth, Daily at bedtime, # 30 tablet, Refills 11, Tot. Refills 11, Maintenance, 07/25/19 11:23:25 EST, Route to Pharmacy Electronically, [id number], [facility] [place], 145, cm, 07/25/19... Start Date: 07/25/19 Status: Ordered lisinopril 20 mg oral tablet See Instructions, TAKE 1 TABLET BY MOUTH AT BEDTIME, # 30 tablet, Refills 11, Tot. Refills 11, SoftStop, 04/21/20 16:53:00 EDT, Instructions Replace Required Details, Route to Pharmacy Electronically, [facility], 147.2, cm, ... Start Date: 04/21/20 Status: Ordered mirtazapine 30 mg oral tablet 1.5 tablet = 45 mg, By Mouth, Daily at bedtime, via Dr. Mark Storm, # 45 tablet, 0 Refills, Maintenance, 11/05/18 16:37:59 EDT, Tablet Start Date: 11/05/18 Status: Ordered omeprazole 20 mg oral delayed release tablet 1 tablet = 20 mg, By Mouth, Daily, # 90 tablet, 11 Refills, Maintenance, 06/29/20 14:01:00 EST, EC Tablet, [facility], 147.2, cm, 06/29/20 13:48:00 EST, Height, 57, kg, 06/29/20 13:48:00 EST, Dry Weight Start Date: 06/29/20 Status: Ordered sertraline 100 mg oral tablet 1 tablet = 100 mg, By Mouth, Daily, via Dr. Mark Storm, # 30 tablet, 0 Refills, Maintenance, 07/15/18 14:45:25 EST, Tablet Start Date: 07/15/18 Status: Ordered simethicone 125 mg oral capsule See Instructions, TAKE 2 CAPSULES BY MOUTH DAILY NEEDED FOR gas, NO MORE THAN 4 CAPSULES DAILY, # 72 capsule, 11 Refills, Maintenance, 06/29/20 14:01:00 EST, [facility], polish labels, 147.2, cm, 06/29/20 13:48:00 EST, Height,... Start Date: 06/29/20 Status: Ordered Vitamin D3 2000 intl units oral capsule = 2,000 International_Units, By Mouth, Daily, # 100 capsule, 1 Refills, Maintenance, 06/30/20 11:25:00 EST, [facility], 147.2, cm, 06/29/20 13:48:00 EST, Height, 57, kg, 06/29/20 13:48:00 EST, Dry Weight Start Date: 06/30/20 Status: Ordered Problem List Condition Effective Dates Status Health Status Inform ant Acromioclavicular joint arthritis(Confirmed) 1 Active Ascending aorta dilatation 4 .0 cm on ECHO 2016(Confirmed) 2, 3 Active Cardiomegaly per radiology imaging(Confirmed) Active Cataract(Confirmed) Active CKD (chronic kidney disease)(Confirmed) Active T12 compression fracture(Confirmed) Active CHF (congestive heart failure)(Confirmed) 4 Active Diverticulosis on 2009 colon osocpy per report(Confirmed) 2009 Active Dyslipidemia(Confirmed) Active Falls(Confirmed) Active GERD - Gastro-esophageal ref lux disease(Confirmed) Active Glaucoma(Confirmed) Active H/O: Melo's palsy(Confirmed) Active Hearing loss(Confirmed) Active Hypertension(Confirmed) Active Osteopenia on 2009 DEXA(Confirmed) Active Colon perforation(Confirmed) Active Polyradiculopathy(Confirmed) 5 Active Skin lesion(Confirmed) Active Thyroid nodule, per 03-25-2014 scanned [place] problem lsit(Confirmed) Active Vascular calcification(Confirmed) 6 Active Vitamin D deficiency(Confirmed) Active 1moderate on x-ray 2017 2clinically, it would be a balance between followup for possibel surgeyr, versus risk of surgery given her many comobridities including dementia.... [id number] ECHO 4.0 cm 4per Cardiology ntoe: , heart failure with recovered EF presumably non- ischemic CM NYHA III and mild aortic insufficiency 5right L4-S1 polyradiculopathy. Bilateral S1 involvement 6mild on CT Procedures Procedure Date Related Diagnosis Body Site Status Esophagogastroduodenoscopy and biopsy 09/22/20 Completed Vital Signs Most recent to oldest [Reference Range]: 1 2 3 Height 155 cm (09/22/20 9:48 AM) Weight 57 kg (09/22/20 9:48 AM) Oxygen Saturation [94-100 %] 98 % (09/22/20 11:09 AM) 98 % (09/22/20 10:58 AM) 100 % (09/22/20 9:48 AM) Pulse Rate [55-90 bpm] 58 bpm (09/22/20 9:48 AM) Body Mass Index [18.5-24.99] 23.73 (09/22/20 9:48 AM) Blood Pressure [90-138/55-84 mm Hg] 131/70mm Hg (09/22/20 10:58 AM) 147/78mm Hg *H* (09/22/20 9:48 AM) Respiratory Rate [16-30 br/min] 18 br/min (09/22/20 11:09 AM) 20 br/min (09/22/20 10:58 AM) 16 br/min (09/22/20 9:48 AM) Temperature [96.8-100.4 DegF] 97.8 DegF (09/22/20 9:48 AM) Liters per Minute 4 L/min (09/22/20 10:58 AM) Mode of Delivery (Oxygen) Room air (09/22/20 11:09 AM) Other: POM (09/22/20 10:58 AM) Room air (09/22/20 9:48 AM) Blood pressure sites Arm, left (09/22/20 10:58 AM) Arm, left (09/22/20 9:48 AM) Temperature Route Temporal (09/22/20 9:48 AM) Social History Social History Type Response Smoking Status Never smoker; Tobacc o user in household: No entered on: 02/02/14 Sex Female
--- OUTSIDE RECORDS SUMMARY | 2023-07-07 13:43 | XMS_ITS | Patient Health Record ---
Author Name Unknown Organization [facility] Address [address] [place] [address] Care Team Providers Care Transport Corps Officer Name Role Phone Marisabel Delaney M.D. Primary Care Provider Unava Fahad Rojas Unavailable [phone] REASON FOR REFERRAL No Information SOCIAL HISTORY Sex Assigned At : Social History Observation Description Sex Assigned At Unknown PLAN OF TREATMENT No Information Insurance Providers Payer Name Payer Address Payer Phone Subscriber Number Group Number Insured Name Patient Relationship to Insured Coverage Start Date Coverage End Date [facility] [address] [place] [address] [id number] JEFFERY LOREDO Self - patient is the insured
--- OUTSIDE RECORDS SUMMARY | 2023-07-07 13:43 | XMS_ITS | Continuity of Care Document ---
Author Name Unknown Organization [facility] Address [address] [place] [address]- Care Team Providers Care Semiconductor Equipment Technician Name Role Phone Breezy ARMSTRONG, [facility] Primary Care Physician [facility] Date(s): 05/12/21 - 06/11/21 [facility] [address] [place] [address]- Attending Physician: Kaleb Awad Admitting Physician: Kaleb Awad Referring Physician: AdmtrKaleb Allergies, Adverse Reactions, Alerts Substance Reaction Severity [...] Not Give n Patient Refuses 1Result Comment: [facility] [id number] 2Admin Note: VIS GIVEN 03/14/2011 3Admin Note: [...] 11 Refills, Maintenance, 06/29/20 14:01:00 EST, Capsule, [facility], canadian labels, 147.2, cm, 06/29/20 13:48:00 EST, Height, 57, kg, 11... Start Date: 06/29/20 Status: Ordered donepezil 10 mg oral tablet 10 mg, 1, tablet, By Mouth, Daily at bedtime, # 30 tablet, Refills 11, Tot. Refills 11, Maintenance, 07/25/19 11:23:25 EST, Route to Pharmacy Electronically, [id number], [facility] [place], 145, cm, 07/25/19... Start Date: 07/25/19 Status: Ordered lisinopril 20 mg oral tablet See Instructions, TAKE 1 TABLET BY MOUTH AT BEDTIME, # 30 tablet, Refills 5, Tot. Refills 5, Soft Stop, 04/27/21 14:27:00 EDT, Instructions Replace Required Details, Route to Pharmacy Electronically,[facility], 155, cm, 02/16/21 1... Start Date: 04/27/21 Status: Ordered mirtazapine 30 mg oral tablet 1.5 tablet = 45 mg, By Mouth, Daily at bedtime, via Dr. Mark Storm, # 45 tablet, 0 Refills, Maintenance, 11/05/18 16:37:59 EDT, Tablet Start Date: 11/05/18 Status: Ordered omeprazole 20 mg oral delayed release tablet 1 tablet = 20 mg, By Mouth, Daily, # 90 tablet, 11 Refills, Maintenance, 06/29/20 14:01:00 EST, EC Tablet, [facility], 147.2, cm, 06/29/20 13:48:00 EST, [...] capsule, 11 Refills, Maintenance, 06/29/20 14:01:00 EST, [facility], canadian labels, 147.2, cm, 06/29/20 13:48:00 EST, Height,... Start Date: 06/29/20 Status: Ordered Vitamin D3 2000 intl units oral capsule 1 capsule, By Mouth, Daily in AM, # 100 capsule, 1 Refills, Maintenance, 12/13/20 9:52:00 EDT, [facility], 155, cm, 12/01/20 11:11:00 EDT, Height, 57, kg, 06/29/20 13:48:00 EST, Dry Weight Start Date: 12/13/20 Status: Ordered Voltaren 1% topical gel 1 application, Topically, 4 times a day, PRN for pain, # 100 Gm, 0 Refills, Maintenance, 05/12/21 11:03:00 EDT, Gel, [facility], Partial fill upon patient request if the prescription is for a schedule II opioid drug., 1 application... Start Date: 05/12/21 Status: Ordered Problem List Condition Effective Dates [...] Hypertension(Confirmed) Active Osteopenia on 2009 DEXA(Confirmed) Active Polyradiculopathy(Confirmed) 5 Active Skin lesion(Confirmed) Active Thyroid nodule, per 03-25-2014 scanned [place] problem lsit(Confirmed) Active Vascular calcification(Confirmed) 6 Active Vitamin D deficiency(Confirmed) Active 1moderate on x-ray 2017 2clinically, it would be a balance between followup for possibel surgeyr, versus risk of surgery given her many comobridities including dementia.... 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 Bilateral S1 involvement 6mild on CT Social History Social History Type Response Smoking Status Never smoker; Tobacc o user in household: No entered on: 02/02/14 Sex Female
--- OUTSIDE RECORDS SUMMARY | 2023-07-07 13:43 | XMS_ITS | Continuity of Care Document ---
Author Name Unknown Organization [facility] Address [address] [place] [address]- Care Team Providers Care Grassland Conservationist Name Role Phone Breezy ARMSTRONG, [facility] Primary Care Physician [facility]): 11/30/20 - 12/30/20 [facility] [address] [place], [place] [address] Allergies, Adverse Reactions, Alerts Substance Reaction Severity [...] Not Give n Patient Refuses 1Result Comment: [facility] [id number] 2Admin Note: VIS GIVEN 03/14/2011 3Admin Note: [...] 11 Refills, Maintenance, 06/29/20 14:01:00 EST, Capsule, [facility], gambian labels, 147.2, cm, 06/29/20 13:48:00 EST, Height, 57, kg, 11... Start Date: 06/29/20 Status: Ordered donepezil 10 mg oral tablet 10 mg, 1, tablet, By Mouth, Daily at bedtime, # 30 tablet, Refills 11, Tot. Refills 11, Maintenance, 07/25/19 11:23:25 EST, Route to Pharmacy Electronically, [id number], [facility] [place], 145, cm, 07/25/19... Start Date: 07/25/19 Status: Ordered lisinopril 20 mg oral tablet See Instructions, TAKE 1 TABLET BY MOUTH AT BEDTIME, # 30 tablet, Refills 11, Tot. Refills 11, SoftStop, 04/21/20 16:53:00 EDT, Instructions Replace Required Details, Route to Pharmacy Electronically, [facility], 147.2, cm, ... Start Date: [...] Refills, Maintenance, 06/29/20 14:01:00 EST, EC Tablet, [facility], 147.2, cm, 06/29/20 13:48:00 EST, [...] capsule, 11 Refills, Maintenance, 06/29/20 14:01:00 EST, [facility], gambian labels, 147.2, cm, 06/29/20 13:48:00 EST, Height,... Start Date: 06/29/20 Status: Ordered Vitamin D3 2000 intl units oral capsule 1 capsule, By Mouth, Daily in AM, # 100 capsule, 1 Refills, Maintenance, 12/13/20 9:52:00 EDT, [facility], 155, cm, 12/01/20 11:11:00 EDT, Height, 57, kg, 06/29/20 13:48:00 EST, Dry Weight Start Date: 12/13/20 Status: Ordered Problem List Condition Effective Dates [...] lesion(Confirmed) Active Thyroid nodule, per 03-25-2014 scanned [place] problem lsit(Confirmed) Active Vascular calcification(Confirmed) 6 Active Vitamin D deficiency(Confirmed) Active 1moderate on x-ray 2017 2clinically, it would be a balance between followup for possibel surgeyr, versus risk of surgery given her many comobridities including dementia.... 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 Bilateral S1 involvement 6mild on CT Social History Social History Type Response Smoking Status Never smoker; Tobacc o user in household: No entered on: 02/02/14 Sex Female
--- OUTSIDE RECORDS SUMMARY | 2023-07-07 13:43 | XMS_ITS | Continuity of Care Document ---
Demographics Address [address] [place] [address] [address] [place] [address] Mobile Preferred Language es Marital Status Druze Affiliation [employer]ology Race Unknown Ethnic Group or Author Name Unknown Organization [facility] Address [address] [place] [address]- Care Team Providers Care Intensive Care Specialist Name Role Phone Minda Garcia DO Primary Care Physician [facility]): 06[facility]12[facility]19 - 08/10/19 [facility] [address] [place] [address]- [facility] Attending Physician: Not on Staff, Attending MD Allergies, Adverse Reactions, Alerts Substance Reaction Severity Status vancomycin Active Vicodin Active Percocet 7.5/325 ITCHING Active Immunizations Given and Recorded Vaccine Date Status Refusal Reason influenza virus vaccine, inactivated 06/12/19 Give n influenza virus vaccine, inactivated 07/15/18 Give n influenza virus vaccine, inactivated 06/10/13 Give n influenza virus vaccine, inactivated 1 06/30/11 Gi naida influenza virus vaccine, inactivated 2 06/16/10 Gi naida influenza virus vaccine, inactivated 3 09/01/09 Gi naida FluLaval (oldterm) 4 06/13/12 Given Tetanus Toxoid 5 04/29/10 Given Pneumococcal Poly (PPV23) (oldterm) 6 09/01/09 Giv en Not Given Vaccine Date Status Refusal Reason pneumococcal 13-valent vaccine 08/04/18 Not Given Patient Refuses pneumococcal 13-valent vaccine 7 12/30/15 Not Give n Patient Refuses 1Admin Note: VIS GIVEN 03/14/2011 2Admin Note: VIS GIVEN-DATED 03/29/10 3Admin Note: VIS GIVEN-DATED 03/30/09 4Admin Note: pt tolerated 5Admin Note: VIS GIVEN 12/24 6Admin Note: VIS GIVEN-11/26 7Result Note: held due to scheduled stress test Medications acetaminophen 500 mg oral tablet 2 tablet = 1,000 mg, By Mouth, 3 times a day, PRN for pain, # 120 tablet, 0 Refills, Maintenance, 01/07/19 14:16:49 EDT, Tablet Start Date: 01/07/19 Status: Ordered buPROPion 75 mg oral tablet 1 tablet = 75 mg, By Mouth, 3 times a day, 0 Refills, Maintenance, 02/13/19 10:31:42 EDT Start Date: 02/13/19 Status: Ordered diclofenac 1% topical gel 1 application, Topically, 4 times a day, PRN for pain, # 100 Gm, 1 Refills, Maintenance, 06/12/19 9:54:50 EDT, Gel, 1 application Topically 4 times a day,PRN:for pain Start Date: 06/12/19 Status: Ordered donepezil 10 mg oral tablet 10 mg, 1, tablet, By Mouth, Daily at bedtime, # 30 tablet, Refills 11, Tot. Refills 11, Maintenance, 07/25/19 11:23:25 EST, Route to Pharmacy Electronically, [id number], [facility], 145, cm, 07/25/19... Start Date: 07/25/19 Status: Ordered lidocaine 5% topical ointment 1 application, Topically, 3 times a day, for back pain, # 35 Gm, 2 Refills, Maintenance, 04/29/19 9:30:48 EDT, Ointment, 1 application Topically 3 times a day,Instr:for back pain Start Date: 04/29/19 Status: Ordered lisinopril 20 mg oral tablet See Instructions, # 30 tablet, Refills 12 Tot. Refills 12, TAKE 1 TABLET BY MOUTH AT BEDTIME, [facility] Start Date: 04/16/19 Status: Ordered mirtazapine 30 mg oral tablet 1.5 tablet = 45 mg, By Mouth, Daily at bedtime, via Dr. Mark Storm, # 45 tablet, 0 Refills, Maintenance, 11/05/18 16:37:59 EDT, Tablet Start Date: 11/05/18 Status: Ordered omeprazole 20 mg oral delayed release tablet 1 tablet = 20 mg, By Mouth, Daily, # 30 tablet, 2 Refills, Maintenance, 06/11/19 14:54:36 EDT, EC Tablet Start Date: 06/11/19 Status: Ordered sertraline 100 mg oral tablet 1 tablet = 100 mg, By Mouth, Daily, via Dr. Mark Storm, # 30 tablet, 0 Refills, Maintenance, 07/15/18 14:45:25 EST, Tablet Start Date: 07/15/18 Status: Ordered simethicone 80 mg oral tablet, chewable 80 mg, 1, tablet, Chew, 3 times a day after meals and bedtime, PRN, armenian label please., # 100 tablet, Refills 0, Tot. Refills 0, Maintenance, Gas, 04/17/19 11:47:51 EDT, Route to Pharmacy Electronically, [id number], [place]... Start Date: 04/17/19 Status: Ordered Problem List Condition Effective Dates [...] lesion(Confirmed) Active Thyroid nodule, per 03-25-2014 scanned [place] problem lsit(Confirmed) Active Vascular calcification(Confirmed) 6 Active Vitamin D deficiency(Confirmed) Active 1moderate on x-ray 2017 2clinically, it would be a balance between followup for possibel surgeyr, versus risk of surgery given her many comobridities including dementia.... 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 Bilateral S1 involvement 6mild on CT Social History Social History Type Response Smoking Status Never smoker; Tobacc o user in household: No entered on: 02/02/14 Sex Female
--- OUTSIDE RECORDS SUMMARY | 2023-07-07 13:44 | XMS_ITS | Continuity of Care Document ---
Author Name Unknown Organization [facility] Address [address] [place] [address]- Care Team Providers Care General Office Dispatcher Name Role Phone Dipak Tijerina MD Primary Care Physician [phone] Encounter [facility] Date(s): 06/02/20 - 06/09/20 [facility] [address] [place] [address]- [facility] Encounter Diagnosis Pain in the abdomen(Discharge Diagnosis) - 06/02/20 Attending Physician: Dipak Tijerina MD Allergies, Adverse Reactions, Alerts Substance Reaction [...] Not Give n Patient Refuses 1Result Comment: [facility] [id number] 2Admin Note: VIS GIVEN 03/14/2011 3Admin Note: VIS GIVEN-DATED 03/29/10 4Admin Note: VIS GIVEN-DATED 03/30/09 5Admin Note: pt tolerated 6Admin Note: VIS GIVEN 12/24 7Admin Note: VIS GIVEN-11/26 8Result Note: held due to scheduled stress test Medications dicyclomine 10 mg oral capsule See Instructions, 1 capsule By Mouth 4 times a day before meals and at bedtime, # 120 each, 3 Refills, Maintenance, 06/02/20 11:39:00 EDT, Capsule, [facility], trinidadian labels, 147.2, cm, 05/26/20 15:31:00 EDT, Height, 58.5, kg, ... Start Date: 06/02/20 Status: Ordered donepezil 10 mg oral tablet 10 mg, 1, tablet, By Mouth, Daily at bedtime, # 30 tablet, Refills 11, Tot. Refills 11, Maintenance, 07/25/19 11:23:25 EST, Route to Pharmacy Electronically, [id number], [facility] [place], 145, cm, 07/25/19... Start Date: 07/25/19 Status: Ordered lisinopril 20 mg oral tablet See Instructions, TAKE 1 TABLET BY MOUTH AT BEDTIME, # 30 tablet, Refills 11, Tot. Refills 11, SoftStop, 04/21/20 16:53:00 EDT, Instructions Replace Required Details, Route to Pharmacy Electronically, [facility], 147.2, cm, ... Start Date: 04/21/20 Status: Ordered mirtazapine 30 mg oral tablet 1.5 tablet = 45 mg, By Mouth, Daily at bedtime, via Dr. Mark Storm, # 45 tablet, 0 Refills, Maintenance, 11/05/18 16:37:59 EDT, Tablet Start Date: 11/05/18 Status: Ordered omeprazole 20 mg oral delayed release tablet 1 tablet = 20 mg, By Mouth, Daily, # 30 tablet, 4 Refills, Maintenance, 05/07/20 13:52:00 EDT, EC Tablet, [facility], 147.2, cm, 04/07/20 9:02:00 EDT, Height, 58.5, kg, 10/14/19 0:03:00 EST, Dry Weight Start Date: 05/07/20 Status: Ordered sertraline 100 mg oral tablet 1 tablet = 100 mg, By Mouth, Daily, via Dr. Mark Storm, # 30 tablet, 0 Refills, Maintenance, 07/15/18 14:45:25 EST, Tablet Start Date: 07/15/18 Status: Ordered simethicone 125 mg oral capsule See Instructions, TAKE 2 CAPSULES BY MOUTH DAILY NEEDED FOR gas, NO MORE THAN 4 CAPSULES DAILY, # 24 capsule, 1 Refills, Maintenance, 06/02/20 11:39:00 EDT, [facility], spanishlabels, 147.2, cm, 05/26/20 15:31:00 EDT, Height, 5... Start Date: 06/02/20 Status: Ordered Vitamin D3 2000 intl units oral capsule = 2,000 International_Units, By Mouth, Daily, # 100 capsule, 1 Refills, Maintenance, 10/15/19 11:41:00 EST, [facility], 147.2, cm, 10/02/19 8:46:00 EST, Height, 58.5, kg, 10/14/19 0:03:00 EST, Dry Weight Start Date: 10/15/19 Status: Ordered Problem List Condition Effective Dates [...] lesion(Confirmed) Active Thyroid nodule, per 03-25-2014 scanned [place] problem lsit(Confirmed) Active Vascular calcification(Confirmed) 6 Active Vitamin D deficiency(Confirmed) Active 1moderate on x-ray 2017 2clinically, it would be a balance between followup for possibel surgeyr, versus risk of surgery given her many comobridities including dementia.... 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 Bilateral S1 involvement 6mild on CT Diagnosis Diagnosis Type Effective Dates Health Status Cl inical Service Informant Pain in the abdomen Discharge Diagnosis 06/02/20 Social History Social History Type Response Smoking Status Never smoker; Tobacc o user in household: No entered on: 02/02/14 Sex Female
--- OUTSIDE RECORDS SUMMARY | 2023-07-07 13:44 | XMS_ITS | Continuity of Care Document ---
Author Name Unknown Organization [facility] Address [address] [place] [address]- Care Team Providers Care Supervisor Coremaker Name Role Phone Breezy ARMSTRONG, [facility] Primary Care Physician [facility] 06[facility]21 - 07/15/21 [facility] [address] [place], [place] [address] Allergies, Adverse Reactions, Alerts Substance Reaction Severity [...] Give n Patient Refuses 1Result Comment: [facility] [id number] 2Admin Note: VIS GIVEN 03/14/2011 3Admin Note: [...] 11 Refills, Maintenance, 06/29/20 14:01:00 EST, Capsule, [facility], yemeni labels, 147.2, cm, 06/29/20 13:48:00 EST, Height, 57, kg, 11... Start Date: 06/29/20 Status: Ordered donepezil 10 mg oral tablet 10 mg, 1, tablet, By Mouth, Daily at bedtime, # 30 tablet, Refills 11, Tot. Refills 11, Maintenance, 07/25/19 11:23:25 EST, Route to Pharmacy Electronically, [id number], [facility] [place], 145, cm, 07/25/19... Start Date: 07/25/19 Status: Ordered lisinopril 20 mg oral tablet See Instructions, TAKE 1 TABLET BY MOUTH AT BEDTIME, # 30 tablet, Refills 5, Tot. Refills 5, Soft Stop, 04/27/21 14:27:00 EDT, Instructions Replace Required Details, Route to Pharmacy Electronically,[facility], 155, cm, 02/16/21 1... Start Date: [...] Refills, Maintenance, 06/29/20 14:01:00 EST, EC Tablet, [facility], 147.2, cm, 06/29/20 13:48:00 EST, Height, [...] capsule, 11 Refills, Maintenance, 06/29/20 14:01:00 EST, [facility], yemeni labels, 147.2, cm, 06/29/20 13:48:00 EST, Height,... Start Date: 06/29/20 Status: Ordered Vitamin D3 2000 intl units oral capsule 1 capsule, By Mouth, Daily in AM, # 100 capsule, 1 Refills, Maintenance, 12/13/20 9:52:00 EDT, [facility], 155, cm, 12/01/20 11:11:00 EDT, Height, 57, kg, 06/29/20 13:48:00 EST, Dry Weight Start Date: 12/13/20 Status: Ordered Voltaren 1% topical gel 1 application, Topically, 4 times a day, PRN for pain, # 100 Gm, 0 Refills, Maintenance, 05/12/21 11:03:00 EDT, Gel, [facility], Partial fill upon patient request if [...] lesion(Confirmed) Active Thyroid nodule, per 03-25-2014 scanned [place] problem lsit(Confirmed) Active Vascular calcification(Confirmed) 6 Active Vitamin D deficiency(Confirmed) Active 1moderate on x-ray 2017 2clinically, it would be a balance between followup for possibel surgeyr, versus risk of surgery given her many comobridities including dementia.... 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 Bilateral S1 involvement 6mild on CT Social History Social History Type Response Smoking Status Never smoker; Tobacc o user in household: No entered on: 02/02/14 Sex Female
--- OUTSIDE RECORDS SUMMARY | 2023-07-07 13:44 | XMS_ITS | Continuity of Care Document ---
Author Name Unknown Organization [facility] Address [address] [place] [address]- Care Team Providers Care Animal Keeper Head Name Role Phone Breezy ARMSTRONG, [facility] Primary Care Physician [phone] [facility] 12[facility]20 - 12/31/20 [facility] [address] [place], [place] [address] Attending Physician: Kaleb Awad Admitting Physician: Kaleb [...] n Patient Refuses 1Result Comment: [facility] [id number] 2Admin Note: VIS GIVEN 03/14/2011 3Admin Note: [...] 11 Refills, Maintenance, 06/29/20 14:01:00 EST, Capsule, [facility], mongolian labels, 147.2, cm, 06/29/20 13:48:00 EST, Height, 57, kg, 11... Start Date: 06/29/20 Status: Ordered donepezil 10 mg oral tablet 10 mg, 1, tablet, By Mouth, Daily at bedtime, # 30 tablet, Refills 11, Tot. Refills 11, Maintenance, 07/25/19 11:23:25 EST, Route to Pharmacy Electronically, [id number], [facility], 145, cm, 07/25/19... Start Date: 07/25/19 Status: Ordered lisinopril 20 mg oral tablet See Instructions, TAKE 1 TABLET BY MOUTH AT BEDTIME, # 30 tablet, Refills 11, Tot. Refills 11, SoftStop, 04/21/20 16:53:00 EDT, Instructions Replace Required Details, Route to Pharmacy Electronically, [facility], 147.2, cm, ... Start Date: [...] Refills, Maintenance, 06/29/20 14:01:00 EST, EC Tablet, [facility], 147.2, cm, 06/29/20 13:48:00 EST, [...] capsule, 11 Refills, Maintenance, 06/29/20 14:01:00 EST, [facility], mongolian labels, 147.2, cm, 06/29/20 13:48:00 EST, Height,... Start Date: 06/29/20 Status: Ordered Vitamin D3 2000 intl units oral capsule 1 capsule, By Mouth, Daily in AM, # 100 capsule, 1 Refills, Maintenance, 12/13/20 9:52:00 EDT, [facility], 155, cm, 12/01/20 11:11:00 EDT, [...] lesion(Confirmed) Active Thyroid nodule, per 03-25-2014 scanned [place] problem lsit(Confirmed) Active Vascular calcification(Confirmed) 6 Active Vitamin D deficiency(Confirmed) Active 1moderate on x-ray 2017 2clinically, it would be a balance between followup for possibel surgeyr, versus risk of surgery given her many comobridities including dementia.... 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 Bilateral S1 involvement 6mild on CT Social History Social History Type Response Smoking Status Never smoker; Tobacc o user in household: No entered on: 02/02/14 Sex Female
--- OUTSIDE RECORDS SUMMARY | 2023-07-07 13:44 | XMS_ITS | Continuity of Care Document ---
Author Name Unknown Organization [facility] Address [address] [place] [address]- Care Team Providers Care Cement Tile Maker Name Role Phone Breezy ARMSTRONG, [facility] Primary Care Physician [phone] [facility]counter [facility] Date(s): 08/31/20 - 09/30/20 [facility] [address] [place], [place] [address] [[email or web address]] Allergies, Adverse Reactions, Alerts Substance Reaction Severity [...] Not Give n Patient Refuses 1Result Comment: [facility] [id number] 2Admin Note: VIS GIVEN 03/14/2011 3Admin Note: [...] 11 Refills, Maintenance, 06/29/20 14:01:00 EST, Capsule, [facility], egyptian labels, 147.2, cm, 06/29/20 13:48:00 EST, Height, 57, kg, 11... Start Date: 06/29/20 Status: Ordered donepezil 10 mg oral tablet 10 mg, 1, tablet, By Mouth, Daily at bedtime, # 30 tablet, Refills 11, Tot. Refills 11, Maintenance, 07/25/19 11:23:25 EST, Route to Pharmacy Electronically, [id number], [facility] [place], 145, cm, 07/25/19... Start Date: 07/25/19 Status: Ordered lisinopril 20 mg oral tablet See Instructions, TAKE 1 TABLET BY MOUTH AT BEDTIME, # 30 tablet, Refills 11, Tot. Refills 11, SoftStop, 04/21/20 16:53:00 EDT, Instructions Replace Required Details, Route to Pharmacy Electronically, [facility], 147.2, cm, 04/07/... Start Date: 04/21/20 Status: Ordered mirtazapine 30 [...] Refills, Maintenance, 06/29/20 14:01:00 EST, EC Tablet, [facility], 147.2, cm, 06/29/20 13:48:00 EST, [...] capsule, 11 Refills, Maintenance, 06/29/20 14:01:00 EST, [facility], egyptian labels, 147.2, cm, 06/29/20 13:48:00 EST, Height,... Start Date: 06/29/20 Status: Ordered Vitamin D3 2000 intl units oral capsule = 2,000 International_Units, By Mouth, Daily, # 100 capsule, 1 Refills, Maintenance, 06/30/20 11:25:00 EST, [facility], 147.2, cm, 06/29/20 13:48:00 EST, [...] lesion(Confirmed) Active Thyroid nodule, per 03-25-2014 scanned [place] problem lsit(Confirmed) Active Vascular calcification(Confirmed) 6 Active Vitamin D deficiency(Confirmed) Active 1moderate on x-ray 2017 2clinically, it would be a balance between followup for possibel surgeyr, versus risk of surgery given her many comobridities including dementia.... 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 Bilateral S1 involvement 6mild on CT Social History Social History Type Response Smoking Status Never smoker; Tobacc o user in household: No entered on: 02/02/14 Sex Female
--- OUTSIDE RECORDS SUMMARY | 2023-07-07 13:44 | XMS_ITS | Continuity of Care Document ---
Author Name Unknown Organization [facility] Address [address] [place] [address]- Care Team Providers Care Carrot Harvester Name Role Phone Dipak Tijerina MD Primary Care Physician Encounter [facility] Date(s): 05/12/21 - 05/19/21 [facility] [address] [place] [address]- Encounter Diagnosis Chronic abdominal pain(Discharge Diagnosis) - 05/12/21 Dry mouth(Discharge Diagnosis) - 05/12/21 Attending Physician: Dipak Tijerina MD Allergies, Adverse [...] Give n Patient Refuses 1Result Comment: [facility] [id number] 2Admin Note: VIS GIVEN 03/14/2011 3Admin Note: [...] 11 Refills, Maintenance, 06/29/20 14:01:00 EST, Capsule, [facility], honduran labels, 147.2, cm, 06/29/20 13:48:00 EST, Height, 57, kg, 11... Start Date: 06/29/20 Status: Ordered donepezil 10 mg oral tablet 10 mg, 1, tablet, By Mouth, Daily at bedtime, # 30 tablet, Refills 11, Tot. Refills 11, Maintenance, 07/25/19 11:23:25 EST, Route to Pharmacy Electronically, [id number], [facility] [place], 145, cm, 07/25/19... Start Date: 07/25/19 Status: Ordered lisinopril 20 mg oral tablet See Instructions, TAKE 1 TABLET BY MOUTH AT BEDTIME, # 30 tablet, Refills 5, Tot. Refills 5, Soft Stop, 04/27/21 14:27:00 EDT, Instructions Replace Required Details, Route to Pharmacy Electronically,[facility], 155, cm, 02/16/21 1... Start [...] Refills, Maintenance, 06/29/20 14:01:00 EST, EC Tablet, [facility], 147.2, cm, 06/29/20 13:48:00 [...] capsule, 11 Refills, Maintenance, 06/29/20 14:01:00 EST, [facility], honduran labels, 147.2, cm, 06/29/20 13:48:00 EST, Height,... Start Date: 06/29/20 Status: Ordered Vitamin D3 2000 intl units oral capsule 1 capsule, By Mouth, Daily in AM, # 100 capsule, 1 Refills, Maintenance, 12/13/20 9:52:00 EDT, [facility], 155, cm, 12/01/20 11:11:00 EDT, Height, 57, kg, 06/29/20 13:48:00 EST, Dry Weight Start Date: 12/13/20 Status: Ordered Voltaren 1% topical gel 1 application, Topically, 4 times a day, PRN for pain, # 100 Gm, 0 Refills, Maintenance, 05/12/21 11:03:00 EDT, Gel, [facility], Partial fill upon patient request if the prescription is for a schedule II opioid drug., 1 application... 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 Bilateral S1 involvement 6mild on CT Diagnosis Diagnosis Type Effective Dates Health Status Cl inical Service Informant Chronic abdominal pain Discharge Diagnosis 05/12/21 Dry mouth Discharge Diagnosis 05/12/21 Vital Signs Most recent to oldest [Reference Range]: 1 Height 155 cm (05/12/21 10:41 AM) Weight 53.1 kg (05/12/21 10:41 AM) Oxygen Saturation [94-100 %] 96 % (05/12/21 10:41 AM) Pulse Rate [55-90 bpm] 69 bpm (05/12/21 10:41 AM) Body Mass Index [18.5-24.99] 22.1 (05/12/21 10:41 AM) Blood Pressure [90-138/55-84 mm Hg] 126/ 76mm Hg (05/12/21 10:41 AM) Temperature [96.8-100.4 DegF] 98.1 DegF (05/12/21 10:41 AM) Blood pressure sites Arm, right (05/12/21 10:41 AM) Temperature Route Temporal (05/12/21 10:41 AM) Social History Social History Type Response Smoking Status Never smoker; Tobacc o user in household: No entered on: 02/02/14 Sex Female
--- OUTSIDE RECORDS SUMMARY | 2023-07-07 13:44 | XMS_ITS | Continuity of Care Document ---
Author Name Unknown Organization [facility] Address [address] [place] [address]- Care Team Providers Care Food Service Manager Name Role Phone Breezy ARMSTRONG, [facility] Primary Care Physician [facility] Date(s): 07/05/21 - 08/04/21 [facility] [address] [place], [place] [address] Allergies, Adverse Reactions, Alerts Substance [...] Not Give n Patient Refuses 1Result Comment: [facility] [id number] 2Admin Note: VIS GIVEN 03/14/2011 3Admin Note: [...] 11 Refills, Maintenance, 06/29/20 14:01:00 EST, Capsule, [facility], solomon islander labels, 147.2, cm, 06/29/20 13:48:00 EST, Height, 57, kg, 11... Start Date: 06/29/20 Status: Ordered donepezil 10 mg oral tablet 10 mg, 1, tablet, By Mouth, Daily at bedtime, # 30 tablet, Refills 11, Tot. Refills 11, Maintenance, 07/25/19 11:23:25 EST, Route to Pharmacy Electronically, [id number], [facility] [place], 145, cm, 07/25/19... Start Date: 07/25/19 Status: Ordered lisinopril 20 mg oral tablet See Instructions, TAKE 1 TABLET BY MOUTH AT BEDTIME, # 30 tablet, Refills 5, Tot. Refills 5, Soft Stop, 04/27/21 14:27:00 EDT, Instructions Replace Required Details, Route to Pharmacy Electronically,[facility], 155, cm, 02/16/21 1... Start [...] Refills, Maintenance, 06/29/20 14:01:00 EST, EC Tablet, [facility], 147.2, cm, 06/29/20 13:48:00 EST, [...] capsule, 11 Refills, Maintenance, 06/29/20 14:01:00 EST, [facility], solomon islander labels, 147.2, cm, 06/29/20 13:48:00 EST, Height,... Start Date: 06/29/20 Status: Ordered Vitamin D3 2000 intl units oral capsule 1 capsule, By Mouth, Daily in AM, # 100 capsule, 1 Refills, [facility], 155, cm, 05/12/21 10:41:00 EDT, Height, 54.2, kg, 02/16/21 11:03:00 EDT, Dry Weight Start Date: 07/21/21 Status: Ordered Voltaren 1% topical gel 1 application, Topically, 4 times a day, PRN for pain, # 100 Gm, 0 Refills, Maintenance, 05/12/21 11:03:00 EDT, Gel, [facility], Partial fill upon patient request [...] Active Skin lesion(Confirmed) Active Thyroid nodule, per 8-6-2014 scanned [place] problem lsit(Confirmed) Active Vascular calcification(Confirmed) 6 Active Vitamin D deficiency(Confirmed) Active 1moderate on x-ray 2017 2clinically, it would be a balance between followup for possibel surgeyr, versus risk of surgery given her many comobridities including dementia.... 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 Bilateral S1 involvement 6mild on CT Social History Social History Type Response Smoking Status Never smoker; Tobacc o user in household: No entered on: 02/02/14 Sex Female
--- OUTSIDE RECORDS SUMMARY | 2023-07-07 13:44 | XMS_ITS | Continuity of Care Document ---
Author Name Unknown Organization [facility] Address [address] [place] [address]- Care Team Providers Care Food Packer Name Role Phone Breezy ARMSTRONG, Dipak Primary Care Physician [facility] Date(s): 12/11/19 - 01/10/20 [facility] [address] [place] [address]- [facility] Attending Physician: Kaleb Awad Admitting Physician: Kaleb Awad Referring Physician: Kaleb Awad Allergies, Adverse Reactions, Alerts Substance Reaction Severity [...] Note: pt tolerated 5Admin Note: VIS GIVEN 5/07 6Admin Note: VIS GIVEN-11/26 7Result Note: held due to scheduled stress test Medications acetaminophen 500 mg oral tablet 2 tablet = 1,000 mg, By Mouth, 3 times a day, PRN for pain, # 120 tablet, 0 Refills, Maintenance, 01/07/19 14:16:49 EDT, Tablet Start Date: 01/07/19 Status: Ordered dicyclomine 10 mg oral capsule See Instructions, 1 capsule By Mouth 4 times a day before meals and at bedtime, # 120 each, 1 Refills, Maintenance, 10/02/19 9:23:00 EST, Capsule, [facility], 147.2, cm, 10/02/19 8:46:00 EST, Height, 58.3, kg, 03/31/19 18:41:0... Start Date: 10/02/19 Status: Ordered donepezil 10 mg oral tablet 10 mg, 1, tablet, By Mouth, Daily at bedtime, # 30 tablet, Refills 11, Tot. Refills 11, Maintenance, 07/25/19 11:23:25 EST, Route to Pharmacy Electronically, [id number], [facility], 145, cm, 07/25/19... Start Date: 07/25/19 Status: Ordered lisinopril 20 mg oral tablet See Instructions, # 30 tablet, Refills 12 Tot. Refills 12, TAKE 1 TABLET BY MOUTH AT BEDTIME, [facility] Start Date: 04/16/19 Status: Ordered mirtazapine 30 mg oral tablet 1.5 tablet = 45 mg, By Mouth, Daily at bedtime, via Dr. Mark Storm, # 45 tablet, 0 Refills, Maintenance, 11/05/18 16:37:59 EDT, Tablet Start Date: 11/05/18 Status: Ordered omeprazole 20 mg oral delayed release tablet 1 tablet = 20 mg, By Mouth, Daily, # 30 tablet, 4 Refills, Maintenance, 12/15/19 13:37:00 EDT, EC Tablet, [facility], 147.2, cm, 10/27/19 8:39:00 EDT, Height, 58.5, kg, 10/14/19 0:03:00 EST, Dry Weight Start Date: 12/15/19 Status: Ordered sertraline 100 mg oral tablet 1 tablet = 100 mg, By Mouth, Daily, via Dr. Mark Storm, # 30 tablet, 0 Refills, Maintenance, 07/15/18 14:45:25 EST, Tablet Start Date: 07/15/18 Status: Ordered Vitamin D3 2000 intl units oral capsule = 2,000 International_Units, By Mouth, Daily, # 100 capsule, 1 Refills, Maintenance, 10/15/19 11:41:00 EST, [facility] [place], 147.2, cm, 10/02/19 8:46:00 [...] lesion(Confirmed) Active Thyroid nodule, per 03-25-2014 scanned [place] problem lsit(Confirmed) Active Vascular calcification(Confirmed) 6 Active Vitamin D deficiency(Confirmed) Active 1moderate on x-ray 2017 2clinically, it would be a balance between followup for possibel surgeyr, versus risk of surgery given her many comobridities including dementia.... 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 Bilateral S1 involvement 6mild on CT Social History Social History Type Response Smoking Status Never smoker; Tobacc o user in household: No entered on: 02/02/14 Sex Female
--- OUTSIDE RECORDS SUMMARY | 2023-07-07 13:44 | XMS_ITS | Continuity of Care Document ---
Author Name Unknown Organization [facility] ter Address [address] [place] [address]- Care Team Providers Care Digital Business Analyst Name Role Phone Breezy ARMSTRONG, [facility] Phys[facility] Date(s): 10/13/19 - 10/14/[address] [address]- [facility] Discharge Disposition: A-D/C Walkout Attending Physician: Not on Staff, Attending MD Admitting Physician: Not on Staff, Admitting MD Referring Physician: Not on Staff, Referring MD Allergies, Adverse Reactions, Alerts Substance Reaction [...] 1 Refills, Maintenance, 10/02/19 9:23:00 EST, Capsule, [facility], 147.2, cm, 10/02/19 8:46:00 EST, Height, 58.3, kg, 03/31/19 18:41:0... Start Date: 10/02/19 Status: Ordered donepezil 10 mg oral tablet 10 mg, 1, tablet, By Mouth, Daily at bedtime, # 30 tablet, Refills 11, Tot. Refills 11, Maintenance, 07/25/19 11:23:25 EST, Route to Pharmacy Electronically, [id number], [facility], 145, cm, 07/25/19... Start Date: 07/25/19 Status: Ordered lisinopril 20 mg oral tablet See Instructions, # 30 tablet, Refills 12 Tot. Refills 12, TAKE 1 TABLET BY MOUTH AT BEDTIME, [facility] Start Date: 04/16/19 Status: Ordered mirtazapine 30 mg oral tablet 1.5 tablet = 45 mg, By Mouth, Daily at bedtime, via Dr. Mark Storm, # 45 tablet, 0 Refills, Maintenance, 11/05/18 16:37:59 EDT, Tablet Start Date: 11/05/18 Status: Ordered omeprazole 20 mg oral delayed release tablet 1 tablet = 20 mg, By Mouth, Daily, # 30 tablet, 2 Refills, Maintenance, 09/04/19 14:44:00 EST, EC Tablet, [facility], 145, cm, 07/25/19 10:51:00 EST, Height, 58.3, kg, 03/31/19 18:41:00 EDT, Dry Weight Start Date: 09/04/19 Status: Ordered sertraline 100 mg oral tablet 1 tablet = 100 mg, By Mouth, Daily, via Dr. Mark Storm, # 30 tablet, 0 Refills, Maintenance, 07/15/18 14:45:25 EST, Tablet Start Date: 07/15/18 Status: Ordered Vitamin D3 2000 intl units oral capsule = 2,000 International_Units, By Mouth, Daily, # 100 capsule, 0 Refills, Maintenance, 09/22/19 10:50:00 EST, [facility], 147.2, cm, 09/22/19 10:26:00 EST, Height, 58.3, kg, 03/31/19 18:41:00 EDT, Dry Weight Start Date: 09/22/19 Status: Ordered Problem List Condition Effective Dates [...] lesion(Confirmed) Active Thyroid nodule, per 03-25-2014 scanned [place] problem lsit(Confirmed) Active Vascular calcification(Confirmed) 6 Active Vitamin D deficiency(Confirmed) Active 1moderate on x-ray 2017 2clinically, it would be a balance between followup for possibel surgeyr, versus risk of surgery given her many comobridities including dementia.... 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 Bilateral S1 involvement 6mild on CT Vital Signs Most recent to oldest [Reference Range]: 1 2 3 Weight 58.5 kg (10/14/19 12:03 AM) 58.5 kg (10/13/19 7:42 PM) 58.5 kg (10/13/19 6:53 PM) Oxygen Saturation [94-100 %] 98 % (10/14/19 12:03 AM) 99 % (10/13/19 7:42 PM) 97 % (10/13/19 6:53 PM) Pulse Rate [55-90 bpm] 88 bpm (10/14/19 12:03 AM) 60 bpm (10/13/19 7:42 PM) 89 bpm (10/13/19 6:53 PM) Blood Pressure [90-138/55-84 mm Hg] 142/74mm Hg *H* (10/14/19 12:03 AM) 129/72mm Hg (10/13/19 7:42 PM) 119/86mm Hg (10/13/19 6:53 PM) Respiratory Rate [16-30 br/min] 20 br/min (10/14/19 12:03 AM) 17 br/min (10/13/19 7:42 PM) 18 br/min (10/13/19 6:53 PM) Temperature [96.8-100.4 DegF] 98 DegF (10/14/19 12:03 AM) 98.5 DegF (10/13/19 6:53 PM) Mode of Delivery (Oxygen) Room air (10/14/19 12:03 AM) Room air (10/13/19 7:42 PM) Room air (10/13/19 6:53 PM) Blood pressure sites Arm, right (10/14/19 12:03 AM) Arm, right (10/13/19 6:53 PM) Temperature Route Oral (10/14/19 12:03 AM) Oral (10/13/19 7:42 PM) Oral (10/13/19 6:53 PM) Dry Weight 58.5 kg (10/14/19 12:03 AM) 58.5 kg (10/13/19 7:42 PM) 58.5 kg (10/13/19 6:53 PM) Weight Obtained Via Standing scale (10/13/19 6:53 PM) Dry Weight Obtained Via Standing scale (10/13/19 6:53 PM) Social History Social History Type Response Smoking Status Never smoker; Tobacc o user in household: No entered on: 02/02/14 Sex Female
--- OUTSIDE RECORDS SUMMARY | 2023-07-07 13:44 | XMS_ITS | Continuity of Care Document ---
Author Name Unknown Organization [facility] Address [address] [place] [address]- Care Team Providers Care Channel Program Manager Name Role Phone Breezy ARMSTRONG, Gianluca Primary Care Physician Encounter [facility] Date(s): 11/11/19 - 11/21/19 [facility] [address] [place] [address]- [facility] Attending Physician: Kaleb Awad Admitting Physician: Kaleb [...] 1 Refills, Maintenance, 10/02/19 9:23:00 EST, Capsule, [facility], 147.2, cm, 10/02/19 8:46:00 EST, Height, 58.3, kg, 03/31/19 18:41:0... Start Date: 10/02/19 Status: Ordered donepezil 10 mg oral tablet 10 mg, 1, tablet, By Mouth, Daily at bedtime, # 30 tablet, Refills 11, Tot. Refills 11, Maintenance, 07/25/19 11:23:25 EST, Route to Pharmacy Electronically, [id number], [facility], 145, cm, 07/25/19... Start Date: 07/25/19 Status: Ordered hydrocortisone 1% topical cream 1 application, Topically, 2 times a day, apply in a thin film to the affected skin and rub in gently and completely, # 454 Gm, 0 Refills, Acute 12/12/19 11:59:00 EDT, 11/11/19 11:58:00 EDT, Cream, [facility], macedonian labels please,... Start Date: 11/11/19 Stop Date: 12/12/19 Status: Ordered lisinopril 20 mg oral tablet See Instructions, # 30 tablet, Refills 12 Tot. Refills 12, TAKE 1 TABLET BY MOUTH AT BEDTIME, [facility] Start Date: 04/16/19 Status: Ordered mirtazapine [...] Refills, Maintenance, 09/04/19 14:44:00 EST, EC Tablet, [facility], 145, cm, 07/25/19 10:51:00 EST, Height, [...] capsule, 1 Refills, Maintenance, 10/15/19 11:41:00 EST, [facility], 147.2, cm, 10/02/19 8:46:00 EST, Height, 58.5, [...] lesion(Confirmed) Active Thyroid nodule, per 03-25-2014 scanned [place] problem lsit(Confirmed) Active Vascular calcification(Confirmed) 6 Active Vitamin D deficiency(Confirmed) Active 1moderate on x-ray 2017 2clinically, it would be a balance between followup for possibel surgeyr, versus risk of surgery given her many comobridities including dementia.... 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 Bilateral S1 involvement 6mild on CT Social History Social History Type Response Smoking Status Never smoker; Tobacc o user in household: No entered on: 02/02/14 Sex Female
--- OUTSIDE RECORDS SUMMARY | 2023-07-07 13:44 | XMS_ITS | Continuity of Care Document ---
Author Name Unknown Organization [facility] ter Address [address] [place] [address]- Care Team Providers Care Enterprise Engineer Name Role Phone Breezy ARMSTRONG, [facility] Primary Care Physician [phone] [facility]counter [facility] Date(s): 10/02/19 - 10/02/[address] [address]- [facility] Attending Physician: Jamie Venegas MD Allergies, Adverse Reactions, Alerts Substance Reaction [...] 1 Refills, Maintenance, 10/02/19 9:23:00 EST, Capsule, [facility], 147.2, cm, 10/02/19 8:46:00 EST, Height, 58.3, kg, 03/31/19 18:41:0... Start Date: 10/02/19 Status: Ordered donepezil 10 mg oral tablet 10 mg, 1, tablet, By Mouth, Daily at bedtime, # 30 tablet, Refills 11, Tot. Refills 11, Maintenance, 07/25/19 11:23:25 EST, Route to Pharmacy Electronically, [id number], [facility], 145, cm, 07/25/19... Start Date: 07/25/19 Status: Ordered lisinopril 20 mg oral tablet See Instructions, # 30 tablet, Refills 12 Tot. Refills 12, TAKE 1 TABLET BY MOUTH AT BEDTIME, [facility] Start Date: 04/16/19 Status: Ordered mirtazapine 30 [...] Refills, Maintenance, 09/04/19 14:44:00 EST, EC Tablet, [facility], 145, cm, 07/25/19 10:51:00 EST, Height, 58.3, [...] capsule, 0 Refills, Maintenance, 09/22/19 10:50:00 EST, [facility], 147.2, cm, 09/22/19 10:26:00 [...] lesion(Confirmed) Active Thyroid nodule, per 03-25-2014 scanned [place] problem lsit(Confirmed) Active Vascular calcification(Confirmed) 6 Active Vitamin D deficiency(Confirmed) Active 1moderate on x-ray 2017 2clinically, it would be a balance between followup for possibel surgeyr, versus risk of surgery given her many comobridities including dementia.... 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 Bilateral S1 involvement 6mild on CT Social History Social History Type Response Smoking Status Never smoker; Tobacc o user in household: No entered on: 02/02/14 Sex Female
--- OUTSIDE RECORDS SUMMARY | 2023-07-07 13:44 | XMS_ITS | Continuity of Care Document ---
Author Name Unknown Organization [facility] Address [address] [place] [address]- Care Team Providers Care Verification Rep Name Role Phone Breezy ARMSTRONG, Dipak Primary Care Physician [phone] Encounter [facility] [place] Date(s): 02/16/21 - 02/23/21 [facility] [address] [place] [address]- Encounter Diagnosis History of recent fall(Discharge Diagnosis) - 02/16/21 Headache(Discharge Diagnosis) - 02/16/21 Bruise(Discharge Diagnosis) - 02/16/21 Attending Physician: Christine Padilla MD Referring Physician: Dipak Tijerina MD Allergies, Adverse Reactions, [...] Give n Patient Refuses 1Result Comment: [facility] [id number] 2Admin Note: VIS GIVEN 03/14/2011 3Admin Note: [...] 11 Refills, Maintenance, 06/29/20 14:01:00 EST, Capsule, [facility], dominican labels, 147.2, cm, 06/29/20 13:48:00 EST, Height, 57, kg, 11... Start Date: 06/29/20 Status: Ordered donepezil 10 mg oral tablet 10 mg, 1, tablet, By Mouth, Daily at bedtime, # 30 tablet, Refills 11, Tot. Refills 11, Maintenance, 07/25/19 11:23:25 EST, Route to Pharmacy Electronically, [id number], [facility] [place], 145, cm, 07/25/19... Start Date: 07/25/19 Status: Ordered lisinopril 20 mg oral tablet See Instructions, TAKE 1 TABLET BY MOUTH AT BEDTIME, # 30 tablet, Refills 11, Tot. Refills 11, SoftStop, 04/21/20 16:53:00 EDT, Instructions Replace Required Details, Route to Pharmacy Electronically, [facility], 147.2, cm, 04/07/... Start Date: 04/21/20 [...] Refills, Maintenance, 06/29/20 14:01:00 EST, EC Tablet, [facility], 147.2, cm, 06/29/20 13:48:00 EST, Height, [...] capsule, 11 Refills, Maintenance, 06/29/20 14:01:00 EST, [facility], dominican labels, 147.2, cm, 06/29/20 13:48:00 EST, Height,... Start Date: 06/29/20 Status: Ordered Vitamin D3 2000 intl units oral capsule 1 capsule, By Mouth, Daily in AM, # 100 capsule, 1 Refills, Maintenance, 12/13/20 9:52:00 EDT, [facility], 155, cm, 12/01/20 11:11:00 EDT, Height, [...] lesion(Confirmed) Active Thyroid nodule, per 03-25-2014 scanned [place] problem lsit(Confirmed) Active Vascular calcification(Confirmed) 6 Active Vitamin D deficiency(Confirmed) Active 1moderate on x-ray 2017 2clinically, it would be a balance between followup for possmorro farmeryr, versus risk of surgery given her many comobridities including dementia.... 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 Bilateral S1 involvement 6mild on CT Diagnosis Diagnosis Type Effective Dates Health Status Cl inical Service Informant History of recent fall Discharge Diagnosis 02/16/21 Headache Discharge Diagnosis 02/16/21 Bruise Discharge Diagnosis 02/16/21 Vital Signs Most recent to oldest [Reference Range]: 1 Height 155 cm (02/16/21 10:59 AM) Weight 54.2 kg (02/16/21 10:59 AM) Oxygen Saturation [94-100 %] 97 % (02/16/21 10:59 AM) Pulse Rate [55-90 bpm] 82 bpm (02/16/21 10:59 AM) Body Mass Index [18.5-24.99] 22.56 (02/16/21 10:59 AM) Blood Pressure [90-138/55-84 mm Hg] 129/ 79mm Hg (02/16/21 10:59 AM) Temperature [96.8-100.4 DegF] 98.2 DegF (02/16/21 10:59 AM) Mode of Delivery (Oxygen) Room air (02/16/21 10:59 AM) Blood pressure sites Arm, right (02/16/21 10:59 AM) Temperature Route Temporal (02/16/21 10:59 AM) Dry Weight 54.2 kg (02/16/21 10:59 AM) Weight Obtained Via Standing scale (02/16/21 10:59 AM) Dry Weight Obtained Via Standing scale (02/16/21 10:59 AM) Social History Social History Type Response Smoking Status Never smoker; Tobacc o user in household: No entered on: 02/02/14 Sex Female
--- OUTSIDE RECORDS SUMMARY | 2023-07-07 13:44 | XMS_ITS | Continuity of Care Document ---
Author Name Unknown Organization [facility] Address [address] [place] [address]- Care Team Providers Care Barrel Driller Name Role Phone Breezy ARMSTRONG, [facility] Primary Care Physician [phone] Encounter [facility] [place] Date(s): 02/16/21 - 03/18/21 [facility] [address] [place] [address]- Attending Physician: Kaleb Awad Admitting Physician: AdmtrKaleb Referring Physician: Admtr, ArHernan Allergies, Adverse Reactions, Alerts Substance Reaction Severity [...] Not Give n Patient Refuses 1Result Comment: [facility] [id number] 2Admin Note: VIS GIVEN 03/14/2011 3Admin Note: VIS GIVEN-DATED 8/10/10 4Admin Note: VIS GIVEN-DATED 03/30/09 5Admin Note: pt tolerated 6Admin Note: VIS GIVEN 12/24 7Admin Note: VIS GIVEN-11/26 8Result Note: held due to scheduled stress test Medications dicyclomine 10 mg oral capsule See Instructions, 1 capsule By Mouth 4 times a day before meals and at bedtime, # 90 capsule, 11 Refills, Maintenance, 06/29/20 14:01:00 EST, Capsule, [facility], lithuanian labels, 147.2, cm, 06/29/20 13:48:00 EST, Height, 57, kg, 11... Start Date: 06/29/20 Status: Ordered donepezil 10 mg oral tablet 10 mg, 1, tablet, By Mouth, Daily at bedtime, # 30 tablet, Refills 11, Tot. Refills 11, Maintenance, 07/25/19 11:23:25 EST, Route to Pharmacy Electronically, [id number], [facility] [place], 145, cm, 07/25/19... Start Date: 07/25/19 Status: Ordered lisinopril 20 mg oral tablet See Instructions, TAKE 1 TABLET BY MOUTH AT BEDTIME, # 30 tablet, Refills 11, Tot. Refills 11, SoftStop, 04/21/20 16:53:00 EDT, Instructions Replace Required Details, Route to Pharmacy Electronically, [facility], 147.2, cm, ... Start Date: 04/21/20 [...] Refills, Maintenance, 06/29/20 14:01:00 EST, EC Tablet, [facility], 147.2, cm, 06/29/20 13:48:00 EST, Height, [...] capsule, 11 Refills, Maintenance, 06/29/20 14:01:00 EST, [facility], lithuanian labels, 147.2, cm, 06/29/20 13:48:00 EST, Height,... Start Date: 06/29/20 Status: Ordered Vitamin D3 2000 intl units oral capsule 1 capsule, By Mouth, Daily in AM, # 100 capsule, 1 Refills, Maintenance, 12/13/20 9:52:00 EDT, [facility], 155, cm, 12/01/20 11:11:00 EDT, Height, [...] lesion(Confirmed) Active Thyroid nodule, per 03-25-2014 scanned [place] problem lsit(Confirmed) Active Vascular calcification(Confirmed) 6 Active Vitamin D deficiency(Confirmed) Active 1moderate on x-ray 2017 2clinically, it would be a balance between followup for possibel surgeyr, versus risk of surgery given her many comobridities including dementia.... 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 Bilateral S1 involvement 6mild on CT Social History Social History Type Response Smoking Status Never smoker; Tobacc o user in household: No entered on: 02/02/14 Sex Female
--- OUTSIDE RECORDS SUMMARY | 2023-07-07 13:44 | XMS_ITS | Continuity of Care Document ---
Demographics Address [address] [place] [address] [address] [place] [address] Mobile Preferred Language es Marital Status Episcopalian Affiliation Rastafari Race Unknown Ethnic Group or Author Name Unknown Organization [facility] Address [address] [place] [address]- Care Team Providers Care Correctional Classification Counselor Name Role Phone Dipak Tijerina MD Primary Care Physician [place] [facility] [place] Date(s): 09/22/19 - 09/29/19 [facility] [address] [place] [address]- [facility] Encounter Diagnosis Risk for falls(Discharge Diagnosis) - 09/22/19 Osteoporosis(Discharge Diagnosis) - 09/22/19 T12 compression fracture(Discharge Diagnosis) - 09/22/19 Lumbago without sciatica(Discharge Diagnosis) - 09/22/19 Depression(Discharge Diagnosis) - 09/22/19 CHF (congestive heart failure)(Discharge Diagnosis) - 09/22/19 CKD (chronic kidney disease)(Discharge Diagnosis) - 09/22/19 Colon perforation(Discharge Diagnosis) - 09/22/19 Hypertension(Discharge Diagnosis) - 09/22/19 Attending Physician: Dipak Tijerina MD Allergies, Adverse [...] 04/29/10 Given Pneumococcal Poly (PPV23) (oldterm) 6 1/13/10 Giv en Not Given Vaccine Date Status [...] EDT, Tablet Start Date: 01/07/19 Status: Ordered donepezil 10 mg oral tablet 10 mg, 1, tablet, By Mouth, Daily at bedtime, # 30 tablet, Refills 11, Tot. Refills 11, Maintenance, 07/25/19 11:23:25 EST, Route to Pharmacy Electronically, [id number], [facility] - , 145, cm, 07/25/19... Start Date: 07/25/19 Status: Ordered lisinopril 20 mg oral tablet See Instructions, # 30 tablet, Refills 12 Tot. Refills 12, TAKE 1 TABLET BY MOUTH AT BEDTIME, [facility] - Start Date: 04/16/19 Status: Ordered mirtazapine 30 [...] Refills, Maintenance, 09/04/19 14:44:00 EST, EC Tablet, [facility] - , 145, cm, 07/25/19 10:51:00 EST, Height, 58.3, [...] a day after meals and bedtime, PRN, bhutanese label please., # 100 tablet, Refills 0, Tot. Refills 0, Maintenance, Gas, 04/17/19 11:47:51 EDT, Route to Pharmacy Electronically, [id number][facility]... Start Date: 04/17/19 Status: Ordered Vitamin D3 2000 intl units oral capsule = 2,000 International_Units, By Mouth, Daily, # 100 capsule, 0 Refills, Maintenance, 09/22/19 10:50:00 EST, [facility] [place], 147.2, cm, 09/22/19 [...] lesion(Confirmed) Active Thyroid nodule, per 03-25-2014 scanned [place] problem lsit(Confirmed) Active Vascular calcification(Confirmed) 6 Active Vitamin D deficiency(Confirmed) Active 1moderate on x-ray 2017 2clinically, it would be a balance between followup for possibel surgeyr, versus risk of surgery given her many comobridities including dementia.... 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 Bilateral S1 involvement 6mild on CT Diagnosis Diagnosis Type Effective Dates Health Status Clinical Service Informant Risk for falls Discharge Diagnosis 09/22/19 Osteoporosis Discharge Diagnosis 09/22/19 T12 compression fracture Discharge Diagnosis 09/22/19 Lumbago without sciatica Discharge Diagnosis 09/22/19 Depression Discharge Diagnosis 09/22/19 CHF (congestive heart failure) Discharge Diagnosis 09/22/19 CKD (chronic kidney disease) Discharge Diagnosis 09/22/19 Colon perforation Discharge Diagnosis 09/22/19 Hypertension Discharge Diagnosis 09/22/19 Vital Signs Most recent to oldest [Reference Range]: 1 Height 147.2 cm (09/22/19 10:26 AM) Weight 58.7 kg (09/22/19 10:26 AM) Oxygen Saturation [94-100 %] 96 % (09/22/19 10:26 AM) Pulse Rate [55-90 bpm] 68 bpm (09/22/19 10:26 AM) Body Mass Index [18.5-24.99] 27.09 *H* (09/22/19 10:26 AM) Blood Pressure [90-138/55-84 mm Hg] 106/ 64mm Hg (09/22/19 10:26 AM) Temperature [96.8-100.4 DegF] 98.3 DegF (09/22/19 10:26 AM) Mode of Delivery (Oxygen) Room air (09/22/19 10:26 AM) Blood pressure sites Arm, left (09/22/19 10:26 AM) Temperature Route Oral (09/22/19 10:26 AM) Weight Obtained Via Standing scale (09/22/19 10:26 AM) Social History Social History Type Response Smoking Status Never smoker; Tobacc o user in household: No entered on: 02/02/14 Sex Female
--- OUTSIDE RECORDS SUMMARY | 2023-07-07 13:44 | XMS_ITS | Continuity of Care Document ---
Author Name Unknown Organization [facility] Address [address] [place] [address]- Care Team Providers Care Fax Machine Repairer Name Role Phone Breezy ARMSTRONG, Gianluca Primary Care Physician [phone] Encounter [facility] [place] Date(s): 10/29/20 - 11/28/20 [facility] [address] [place], [place] [address] Attending Physician: AdmKaleb rankin Admitting Physician: AdmtrKaleb Referring Physician: Admtr, ArHernan [...] Not Give n Patient Refuses 1Result Comment: [facility] [id number] 2Admin Note: VIS GIVEN 03/14/2011 3Admin Note: [...] 11 Refills, Maintenance, 06/29/20 14:01:00 EST, Capsule, [facility], congolese labels, 147.2, cm, 06/29/20 13:48:00 EST, Height, 57, kg, 11... Start Date: 06/29/20 Status: Ordered donepezil 10 mg oral tablet 10 mg, 1, tablet, By Mouth, Daily at bedtime, # 30 tablet, Refills 11, Tot. Refills 11, Maintenance, 07/25/19 11:23:25 EST, Route to Pharmacy Electronically, [id number], [facility] [place], 145, cm, 07/25/19... Start Date: 07/25/19 Status: Ordered lisinopril 20 mg oral tablet See Instructions, TAKE 1 TABLET BY MOUTH AT BEDTIME, # 30 tablet, Refills 11, Tot. Refills 11, SoftStop, 04/21/20 16:53:00 EDT, Instructions Replace Required Details, Route to Pharmacy Electronically, [facility], 147.2, cm, ... Start Date: [...] Refills, Maintenance, 06/29/20 14:01:00 EST, EC Tablet, [facility], 147.2, cm, 06/29/20 13:48:00 EST, [...] capsule, 11 Refills, Maintenance, 06/29/20 14:01:00 EST, [facility], congolese labels, 147.2, cm, 06/29/20 13:48:00 EST, Height,... Start Date: 06/29/20 Status: Ordered Vitamin D3 2000 intl units oral capsule = 2,000 International_Units, By Mouth, Daily, # 100 capsule, 1 Refills, Maintenance, 06/30/20 11:25:00 EST, [facility], 147.2, cm, 06/29/20 13:48:00 EST, [...] lesion(Confirmed) Active Thyroid nodule, per 03-25-2014 scanned [place] problem lsit(Confirmed) Active Vascular calcification(Confirmed) 6 Active Vitamin D deficiency(Confirmed) Active 1moderate on x-ray 2018 2clinically, it would be a balance between followup for possibel surgeyr, versus risk of surgery given her many comobridities including dementia.... 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 Bilateral S1 involvement 6mild on CT Social History Social History Type Response Smoking Status Never smoker; Tobacc o user in household: No entered on: 02/02/14 Sex Female
--- OUTSIDE RECORDS SUMMARY | 2023-07-07 13:44 | XMS_ITS | Continuity of Care Document ---
Author Name Unknown Organization [facility] Address [address] [place] [address]- Care Team Providers Care Boiler Maker Name Role Phone Dipak Tijerina MD Primary Care Physician [phone] En[place] [facility] [place] Date(s): 10/27/19 - 11/03/19 [facility] [address] [place] [address]- [facility] Encounter Diagnosis Pain of upper abdomen(Discharge Diagnosis) - 10/27/19 Attending Physician: Dipak Tijerina MD Allergies, Adverse [...] 1 Refills, Maintenance, 10/02/19 9:23:00 EST, Capsule, [facility], 147.2, cm, 10/02/19 8:46:00 EST, Height, 58.3, kg, 03/31/19 18:41:0... Start Date: 10/02/19 Status: Ordered donepezil 10 mg oral tablet 10 mg, 1, tablet, By Mouth, Daily at bedtime, # 30 tablet, Refills 11, Tot. Refills 11, Maintenance, 07/25/19 11:23:25 EST, Route to Pharmacy Electronically, [id number], [facility], 145, cm, 07/25/19... Start Date: 07/25/19 Status: Ordered lisinopril 20 mg oral tablet See Instructions, # 30 tablet, Refills 12 Tot. Refills 12, TAKE 1 TABLET BY MOUTH AT BEDTIME, [facility] Start Date: 04/16/19 Status: Ordered mirtazapine [...] Refills, Maintenance, 09/04/19 14:44:00 EST, EC Tablet, [facility], 145, cm, 07/25/19 10:51:00 EST, Height, [...] capsule, 1 Refills, Maintenance, 10/15/19 11:41:00 EST, [facility] [place], 147.2, cm, 10/02/19 [...] lesion(Confirmed) Active Thyroid nodule, per 03-25-2014 scanned [place] problem lsit(Confirmed) Active Vascular calcification(Confirmed) 6 Active Vitamin D deficiency(Confirmed) Active 1moderate on x-ray 2017 2clinically, it would be a balance between followup for possibel surgeyr, versus risk of surgery given her many comobridities including dementia.... 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 Bilateral S1 involvement 6mild on CT Diagnosis Diagnosis Type Effective Dates Health Status Cl inical Service Informant Pain of upper abdomen Discharge Diagnosis 10/27/19 Vital Signs Most recent to oldest [Reference Range]: 1 Height 147.2 cm (10/27/19 8:39 AM) Weight 59.0 kg (10/27/19 8:39 AM) Oxygen Saturation [94-100 %] 98 % (10/27/19 8:39 AM) Pulse Rate [55-90 bpm] 67 bpm (10/27/19 8:39 AM) Body Mass Index [18.5-24.99] 27.23 *H* (10/27/19 8:39 AM) Blood Pressure [90-138/55-84 mm Hg] 100/ 70mm Hg (10/27/19 8:39 AM) Mode of Delivery (Oxygen) Room air (10/27/19 8:39 AM) Blood pressure sites Arm, left (10/27/19 8:39 AM) Social History Social History Type Response Smoking Status Never smoker; Tobacc o user in household: No entered on: 02/02/14 Sex Female
--- OUTSIDE RECORDS SUMMARY | 2023-07-07 13:44 | XMS_ITS | Continuity of Care Document ---
Author Name Unknown Organization [facility] Address [address] [place] [address]- Care Team Providers Care Structural Worker Name Role Phone Breezy ARMSTRONG, [facility] Primary Care Physician Encounter [facility] [place] Date(s): 08/11/19 - 10/22/19 [facility] [address] [place] [address] [facility] Attending Physician: Maxine Lara MD Allergies, Adverse Reactions, Alerts Substance Reaction [...] Refills, Maintenance, 10/02/19 9:23:00 EST, Capsule, [facility], 147.2, cm, 10/02/19 8:46:00 EST, Height, 58.3, kg, 03/31/19 18:41:0... Start Date: 10/02/19 Status: Ordered donepezil 10 mg oral tablet 10 mg, 1, tablet, By Mouth, Daily at bedtime, # 30 tablet, Refills 11, Tot. Refills 11, Maintenance, 07/25/19 11:23:25 EST, Route to Pharmacy Electronically, [id number], [facility], 145, cm, 07/25/19... Start Date: 07/25/19 Status: Ordered lisinopril 20 mg oral tablet See Instructions, # 30 tablet, Refills 12 Tot. Refills 12, TAKE 1 TABLET BY MOUTH AT BEDTIME, [facility] Start Date: 04/16/19 Status: Ordered [...] Refills, Maintenance, 09/04/19 14:44:00 EST, EC Tablet, [facility], 145, cm, 07/25/19 10:51:00 EST, Height, 58.3, [...] capsule, 1 Refills, Maintenance, 10/15/19 11:41:00 EST, [facility] [place], 147.2, cm, 10/02/19 8:46:00 [...] lesion(Confirmed) Active Thyroid nodule, per 03-25-2014 scanned [place] problem lsit(Confirmed) Active Vascular calcification(Confirmed) 6 Active Vitamin D deficiency(Confirmed) Active 1moderate on x-ray 2017 2clinically, it would be a balance between followup for possibel surgeyr, versus risk of surgery given her many comobridities including dementia.... 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 Bilateral S1 involvement 6mild on CT Social History Social History Type Response Smoking Status Never smoker; Tobacc o user in household: No entered on: 02/02/14 Sex Female
--- OUTSIDE RECORDS SUMMARY | 2023-07-07 13:44 | XMS_ITS | Continuity of Care Document ---
Author Name Unknown Organization [facility] Address [address] [place] [address]- Care Team Providers Care Sawyer Cork Slabs Name Role Phone Breezy ARMSTRONG, Dipak Primary Care Physician Encounter [facility] [place] Date(s): 05/26/20 - 06/25/20 [facility] [address] [place], [place] [address] Attending Physician: AdmKaleb rankin Admitting Physician: AdmtrKaleb Referring Physician: Admtr, Ar8 Allergies, Adverse Reactions, Alerts Substance Reaction Severity [...] Not Give n Patient Refuses 1Result Comment: [facility] [id number] 2Admin Note: VIS GIVEN 03/14/2011 3Admin Note: [...] 3 Refills, Maintenance, 06/02/20 11:39:00 EDT, Capsule, [facility], south korean labels, 147.2, cm, 05/26/20 15:31:00 EDT, Height, 58.5, kg, ... Start Date: 06/02/20 Status: Ordered donepezil 10 mg oral tablet 10 mg, 1, tablet, By Mouth, Daily at bedtime, # 30 tablet, Refills 11, Tot. Refills 11, Maintenance, 07/25/19 11:23:25 EST, Route to Pharmacy Electronically, [id number], [facility] [place], 145, cm, 07/25/19... Start Date: 07/25/19 Status: Ordered lisinopril 20 mg oral tablet See Instructions, TAKE 1 TABLET BY MOUTH AT BEDTIME, # 30 tablet, Refills 11, Tot. Refills 11, SoftStop, 04/21/20 16:53:00 EDT, Instructions Replace Required Details, Route to Pharmacy Electronically, [facility], 147.2, cm, ... Start Date: [...] Refills, Maintenance, 05/07/20 13:52:00 EDT, EC Tablet, [facility], 147.2, cm, 04/07/20 9:02:00 EDT, Height, [...] capsule, 1 Refills, Maintenance, 06/02/20 11:39:00 EDT, [facility], spanishlabels, 147.2, cm, 05/26/20 15:31:00 EDT, Height, 5... Start Date: 06/02/20 Status: Ordered Vitamin D3 2000 intl units oral capsule = 2,000 International_Units, By Mouth, Daily, # 100 capsule, 1 Refills, Maintenance, 10/15/19 11:41:00 EST, [facility] [place], 147.2, cm, 10/02/19 [...] lesion(Confirmed) Active Thyroid nodule, per 03-25-2014 scanned [place] problem lsit(Confirmed) Active Vascular calcification(Confirmed) 6 Active Vitamin D deficiency(Confirmed) Active 1moderate on x-ray 2017 2clinically, it would be a balance between followup for possibel surgeyr, versus risk of surgery given her many comobridities including dementia.... 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 Bilateral S1 involvement 6mild on CT Social History Social History Type Response Smoking Status Never smoker; Tobacc o user in household: No entered on: 02/02/14 Sex Female
--- OUTSIDE RECORDS SUMMARY | 2023-07-07 13:44 | XMS_ITS | Continuity of Care Document ---
Author Name Unknown Organization [facility] Address [address] [place] [address]- Care Team Providers Care Last Dipper Name Role Phone Breezy ARMSTRONG, [facility] Primary Care Physician [facility] Date[facility]): 05/27/20 - 06/26/20 [facility] [address] [place], [place] [address] Allergies, Adverse Reactions, Alerts Substance Reaction Severity [...] Not Give n Patient Refuses 1Result Comment: [facility] [id number] 2Admin Note: VIS GIVEN 03/14/2011 3Admin Note: [...] 3 Refills, Maintenance, 06/02/20 11:39:00 EDT, Capsule, [facility], bulgarian labels, 147.2, cm, 05/26/20 15:31:00 EDT, Height, 58.5, kg, ... Start Date: 06/02/20 Status: Ordered donepezil 10 mg oral tablet 10 mg, 1, tablet, By Mouth, Daily at bedtime, # 30 tablet, Refills 11, Tot. Refills 11, Maintenance, 07/25/19 11:23:25 EST, Route to Pharmacy Electronically, [id number], [facility] [place], 145, cm, 07/25/19... Start Date: 07/25/19 Status: Ordered lisinopril 20 mg oral tablet See Instructions, TAKE 1 TABLET BY MOUTH AT BEDTIME, # 30 tablet, Refills 11, Tot. Refills 11, SoftStop, 04/21/20 16:53:00 EDT, Instructions Replace Required Details, Route to Pharmacy Electronically, [facility], 147.2, cm, ... Start Date: [...] Refills, Maintenance, 05/07/20 13:52:00 EDT, EC Tablet, [facility], 147.2, cm, 04/07/20 9:02:00 EDT, [...] capsule, 1 Refills, Maintenance, 06/02/20 11:39:00 EDT, [facility], spanishlabels, 147.2, cm, 05/26/20 15:31:00 EDT, Height, 5... Start Date: 06/02/20 Status: Ordered Vitamin D3 2000 intl units oral capsule = 2,000 International_Units, By Mouth, Daily, # 100 capsule, 1 Refills, Maintenance, 10/15/19 11:41:00 EST, [facility] [place], 147.2, cm, 10/02/19 [...] lesion(Confirmed) Active Thyroid nodule, per 03-25-2014 scanned [place] problem lsit(Confirmed) Active Vascular calcification(Confirmed) 6 Active Vitamin D deficiency(Confirmed) Active 1moderate on x-ray 2017 2clinically, it would be a balance between followup for possibel surgeyr, versus risk of surgery given her many comobridities including dementia.... 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 Bilateral S1 involvement 6mild on CT Social History Social History Type Response Smoking Status Never smoker; Tobacc o user in household: No entered on: 02/02/14 Sex Female
--- OUTSIDE RECORDS SUMMARY | 2023-07-07 13:44 | XMS_ITS | Continuity of Care Document ---
Demographics Address [address] [place] [address] [address] [place] [address] Mobile Preferred Language es Marital Status Taoism Affiliation Latter Day Race Unknown Ethnic Group or Author Name Unknown Organization [facility] Address [address] [place] [address]- Care Team Providers Care Claim Review Medical Director Name Role Phone Breezy AMRSTRONG, Dipak Primary Care Physician [place] [facility] [place] 09/12/19 - 09/22/19 [facility] [address] [place] [address]- [facility] Attending Physician: Kaleb Awad Admitting [...] 07/25/19 11:23:25 EST, Route to Pharmacy Electronically, [id number], [facility], 145, cm, 07/25/19... Start Date: 07/25/19 Status: Ordered lisinopril 20 mg oral tablet See Instructions, # 30 tablet, Refills 12 Tot. Refills 12, TAKE 1 TABLET BY MOUTH AT BEDTIME, [facility] Start Date: 04/16/19 Status: Ordered [...] Refills, Maintenance, 09/04/19 14:44:00 EST, EC Tablet, [facility], 145, cm, 07/25/19 10:51:00 EST, Height, [...] a day after meals and bedtime, PRN, albanian label please., # 100 tablet, Refills 0, Tot. Refills 0, Maintenance, Gas, 04/17/19 11:47:51 EDT, Route to Pharmacy Electronically, [id number], [facility]... Start Date: 04/17/19 Status: Ordered Vitamin D3 2000 intl units oral capsule = 2,000 International_Units, By Mouth, Daily, # 100 capsule, 0 Refills, Maintenance, 09/22/19 10:50:00 EST, [facility] [place], 147.2, cm, 09/22/19 10:26:00 [...] lesion(Confirmed) Active Thyroid nodule, per 03-25-2014 scanned [place] problem lsit(Confirmed) Active Vascular calcification(Confirmed) 6 Active Vitamin D deficiency(Confirmed) Active 1moderate on x-ray 2017 2clinically, it would be a balance between followup for possibel surgeyr, versus risk of surgery given her many comobridities including dementia.... 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 Bilateral S1 involvement 6mild on CT Social History Social History Type Response Smoking Status Never smoker; Tobacc o user in household: No entered on: 02/02/14 Sex Female
--- OUTSIDE RECORDS SUMMARY | 2023-07-07 13:44 | XMS_ITS | Continuity of Care Document ---
Author Name Unknown Organization [facility] Address [address] [place] [address]- Care Team Providers Care Sign Erector Name Role Phone Breezy ARMSTRONG, [facility] Date(s): 06/11/22 - 06/11/[address] [address]- Discharge Disposition: A-Error Chart/Home (ED Only) Attending Physician: Not on Staff, Attending MD [...] Not Give n Patient Refuses 1Result Comment: [facility] [id number] 2Admin Note: VIS GIVEN 03/14/2011 3Admin Note: [...] 11 Refills, Maintenance, 06/29/20 14:01:00 EST, Capsule, [facility], colombian labels, 147.2, cm, 06/29/20 13:48:00 EST, Height, 57, kg, 11... Start Date: 06/29/20 Status: Ordered donepezil 10 mg oral tablet 10 mg, 1, tablet, By Mouth, Daily at bedtime, # 30 tablet, Refills 11, Tot. Refills 11, Maintenance, 07/25/19 11:23:25 EST, Route to Pharmacy Electronically, [id number], [facility] [place], 145, cm, 07/25/19... Start Date: 07/25/19 Status: Ordered lisinopril 20 mg oral tablet See Instructions, TAKE 1 TABLET BY MOUTH AT BEDTIME, # 30 tablet, Refills 5, Tot. Refills 5, Soft Stop, 04/27/21 14:27:00 EDT, Instructions Replace Required Details, Route to Pharmacy Electronically,[facility], 155, cm, 02/16/21 1... Start Date: 04/27/21 Status: Ordered mirtazapine 30 mg oral tablet 1.5 tablet = 45 mg, By Mouth, Daily at bedtime, via Dr. Mark Storm, # 45 tablet, 0 Refills, Maintenance, 11/05/18 16:37:59 EDT, Tablet Start Date: 11/05/18 Status: Ordered omeprazole 20 mg oral enteric coated capsule 1 capsule, By Mouth, Daily in AM, # 90 capsule, 11 Refills, [facility], 155, cm, 05/12/21 10:41:00 EDT, Height, 54.2, kg, 02/16/21 11:03:00 EDT, Dry Weight Start Date: 09/26/21 Status: Ordered sertraline 100 mg oral tablet [...] capsule, 11 Refills, Maintenance, 06/29/20 14:01:00 EST, [facility], colombian labels, 147.2, cm, 06/29/20 13:48:00 EST, Height,... Start Date: 06/29/20 Status: Ordered Vitamin D3 2000 intl units oral capsule 1 capsule, By Mouth, Daily in AM, # 100 capsule, 1 Refills, [facility], 155, cm, 05/12/21 10:41:00 EDT, Height, 54.2, kg, 02/16/21 11:03:00 EDT, Dry Weight Start Date: 01/22/22 Status: Ordered Voltaren 1% topical gel 1 application, Topically, 4 times a day, PRN for pain, # 100 Gm, 0 Refills, Maintenance, 05/12/21 11:03:00 EDT, Gel, [facility], Partial fill upon patient request if the prescription is for a schedule II opioid drug., 1 application... 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 aorta dilatation 4.0 cm on ECHO 2016 2, 3 Confirmed Active Cardiomegaly per radiology imaging Confirmed Active Cataract Confirmed Active CKD (chronic kidney disease) Confirmed Active T12 compression fracture Confirmed Active CHF (congestive heart failure) 4 Confirmed Active Diverticulosis on 2009 colonosocpy per report Confirmed 2009 Active Dyslipidemia Confirmed Active Falls Confirmed Active GERD - Gastro-esophageal reflux disease Confirmed Active Glaucoma Confirmed Active H/O: Melo's palsy Confirmed Active Hearing loss Confirmed Active Hypertension Confirmed Active Osteopenia on 2009 DEXA Confirmed Active Polyradiculopathy 5 Confirmed Active Skin lesion Confirmed Active Thyroid nodule, per 03-25-2014 scanned [place] problem lsit Confirmed Active Vascular calcification 6 Confirmed Active Vitamin D deficiency Confirmed Active 1moderate on x-ray 2017 2clinically, it would be a balance between followup for possibmis surgeyr, versus risk of surgery given her many comobridities including dementia.... 22522 ECHO 4.0 cm 4per Cardiology ntoe: , heart failure with recovered EF presumably non- ischemic CM NYHA III and mild aortic insufficiency 5right L4-S1 polyradiculopathy. Bilateral S1 involvement 6mild on CT Vital Signs Most recent to oldest [Reference Range]: 1 Oxygen Saturation [94-100 %] 99 % (06/11/22 9:29 AM) Pulse Rate [55-90 bpm] 83 bpm (06/11/22 9:29 AM) Mode of Delivery (Oxygen) Room air (06/11/22 9:29 AM) Social History Social History Type Response Smoking Status Never smoker; Tobacc o user in household: No entered on: 02/02/14 Sex Female Patient Care team information Personnel Name: Dipak Tijerina MD Address: Address: [address] [place] [address] Adult & Pediatric Medicine [place], [place] [address]
--- OUTSIDE RECORDS SUMMARY | 2023-07-07 13:44 | XMS_ITS | Continuity of Care Document ---
Author Name Unknown Organization [facility] Address [address] [place] [address]- Care Team Providers Care Radiator Core Tester Name Role Phone Breezy ARMSTRONG, Dipak Primary Care Physician [place] [facility] [place](s): 10/17/19 - 11/10/[address] [address] [facility] Discharge Disposition: A-D/C Home Attending Physician: Dipak Tijerina MD Admitting Physician: Dipak Tijerina MD Referring Physician: Gabino Dunlap MD Allergies, Adverse Reactions, Alerts Substance Reaction [...] 1 Refills, Maintenance, 10/02/19 9:23:00 EST, Capsule, [facility], 147.2, cm, 10/02/19 8:46:00 EST, Height, 58.3, kg, 03/31/19 18:41:0... Start Date: 10/02/19 Status: Ordered donepezil 10 mg oral tablet 10 mg, 1, tablet, By Mouth, Daily at bedtime, # 30 tablet, Refills 11, Tot. Refills 11, Maintenance, 07/25/19 11:23:25 EST, Route to Pharmacy Electronically, [id number], [facility], 145, cm, 07/25/19... Start Date: 07/25/19 Status: Ordered lisinopril 20 mg oral tablet See Instructions, # 30 tablet, Refills 12 Tot. Refills 12, TAKE 1 TABLET BY MOUTH AT BEDTIME, [facility] Start Date: 04/16/19 Status: Ordered mirtazapine 30 [...] Refills, Maintenance, 09/04/19 14:44:00 EST, EC Tablet, [facility], 145, cm, 07/25/19 10:51:00 EST, Height, 58.3, [...] capsule, 1 Refills, Maintenance, 10/15/19 11:41:00 EST, [facility] [place], 147.2, cm, 10/02/19 [...] lesion(Confirmed) Active Thyroid nodule, per 03-25-2014 scanned [place] problem lsit(Confirmed) Active Vascular calcification(Confirmed) 6 Active Vitamin D deficiency(Confirmed) Active 1moderate on x-ray 2017 2clinically, it would be a balance between followup for possibel surgeyr, versus risk of surgery given her many comobridities including dementia.... 00515 ECHO 4.0 cm 4per Cardiology ntoe: , heart failure with recovered EF presumably non- ischemic CM NYHA III and mild aortic insufficiency 5right L4-S1 polyradiculopathy. Bilateral S1 involvement 6mild on CT Social History Social History Type Response Smoking Status Never smoker; Tobacc o user in household: No entered on: 02/02/14 Sex Female
--- OUTSIDE RECORDS SUMMARY | 2023-07-07 13:44 | XMS_ITS | Continuity of Care Document ---
Author Name Unknown Organization [facility] Address [address] [place] [address]- Care Team Providers Care Bag Making Machine Tender Name Role Phone Dipak Tijerina MD Primary Care Physician [phone] [facility]counter [facility] Date(s): 10/27/19 - 12/06/[address] [address]- [facility] Attending Physician: Dipak Tijerina MD Admitting Physician: Dipak Tijerina MD Referring Physician: Dipak Tijerina MD Allergies, [...] Refills, Maintenance, 10/02/19 9:23:00 EST, Capsule, [facility], 147.2, cm, 10/02/19 8:46:00 EST, Height, 58.3, kg, 03/31/19 18:41:0... Start Date: 10/02/19 Status: Ordered donepezil 10 mg oral tablet 10 mg, 1, tablet, By Mouth, Daily at bedtime, # 30 tablet, Refills 11, Tot. Refills 11, Maintenance, 07/25/19 11:23:25 EST, Route to Pharmacy Electronically, [id number], [facility], 145, cm, 07/25/19... Start Date: 07/25/19 Status: Ordered hydrocortisone 1% topical cream 1 application, Topically, 2 times a day, apply in a thin film to the affected skin and rub in gently and completely, # 454 Gm, 0 Refills, Acute 12/12/19 11:59:00 EDT, 11/11/19 11:58:00 EDT, Cream, [facility], pashto labels please,... Start Date: 11/11/19 Stop Date: 12/12/19 Status: Ordered lisinopril 20 mg oral tablet See Instructions, # 30 tablet, Refills 12 Tot. Refills 12, TAKE 1 TABLET BY MOUTH AT BEDTIME, [facility] Start Date: 04/16/19 Status: Ordered [...] Refills, Maintenance, 09/04/19 14:44:00 EST, EC Tablet, [facility], 145, cm, 07/25/19 10:51:00 EST, [...] capsule, 1 Refills, Maintenance, 10/15/19 11:41:00 EST, [facility], 147.2, cm, 10/02/19 8:46:00 EST, [...] lesion(Confirmed) Active Thyroid nodule, per 03-25-2014 scanned [place] problem lsit(Confirmed) Active Vascular calcification(Confirmed) 6 Active Vitamin D deficiency(Confirmed) Active 1moderate on x-ray 2017 2clinically, it would be a balance between followup for possibel surgeyr, versus risk of surgery given her many comobridities including dementia.... [address]27 ECHO 4.0 cm 4per Cardiology ntoe: , heart failure with recovered EF presumably non- ischemic CM NYHA III and mild aortic insufficiency 5right L4-S1 polyradiculopathy. Bilateral S1 involvement 6mild on CT Social History Social History Type Response Smoking Status Never smoker; Tobacc o user in household: No entered on: 02/02/14 Sex Female
--- OUTSIDE RECORDS SUMMARY | 2023-07-07 13:44 | XMS_ITS | Continuity of Care Document ---
Author Name Unknown Organization [facility] Address [address] [place] [address]- Care Team Providers Care Transportation Coordinator Name Role Phone Breezy ARMSTRONG, [facility] Physician Encounter [facility] Date(s): 12/10/19 - 01/10/20 [facility] [address] [place] [address]- [facility] Attending Physician: Not on Staff, Attending MD [...] 1 Refills, Maintenance, 10/02/19 9:23:00 EST, Capsule, [facility], 147.2, cm, 10/02/19 8:46:00 EST, Height, 58.3, kg, 03/31/19 18:41:0... Start Date: 10/02/19 Status: Ordered donepezil 10 mg oral tablet 10 mg, 1, tablet, By Mouth, Daily at bedtime, # 30 tablet, Refills 11, Tot. Refills 11, Maintenance, 07/25/19 11:23:25 EST, Route to Pharmacy Electronically, [id number], [facility], 145, cm, 07/25/19... Start Date: 07/25/19 Status: Ordered lisinopril 20 mg oral tablet See Instructions, # 30 tablet, Refills 12 Tot. Refills 12, TAKE 1 TABLET BY MOUTH AT BEDTIME, [facility] Start Date: 04/16/19 Status: [...] Refills, Maintenance, 12/15/19 13:37:00 EDT, EC Tablet, [facility], 147.2, cm, 10/27/19 8:39:00 EDT, Height, [...] capsule, 1 Refills, Maintenance, 10/15/19 11:41:00 EST, [facility], 147.2, cm, 10/02/19 8:46:00 [...] lesion(Confirmed) Active Thyroid nodule, per 03-25-2014 scanned [place] problem lsit(Confirmed) Active Vascular calcification(Confirmed) 6 Active Vitamin D deficiency(Confirmed) Active 1moderate on x-ray 2017 2clinically, it would be a balance between followup for possibel surgeyr, versus risk of surgery given her many comobridities including dementia.... 17814 ECHO 4.0 cm 4per Cardiology ntoe: , heart failure with recovered EF presumably non- ischemic CM NYHA III and mild aortic insufficiency 5right L4-S1 polyradiculopathy. Bilateral S1 involvement 6mild on CT Social History Social History Type Response Smoking Status Never smoker; Tobacc o user in household: No entered on: 02/02/14 Sex Female
--- OUTSIDE RECORDS SUMMARY | 2023-07-07 13:44 | XMS_ITS | Continuity of Care Document ---
Author Name Unknown Organization [facility] Address [address] [place] [address]- Care Team Providers Care Mat Making Machine Tender Name Role Phone Breezy ARMSTRONG, Dipak Primary Care Physician [phone] [facility] Date[facility]s): 10/24/19 - 11/03/19 [facility] [address] [place] [address]- [facility] Attending Physician: Kaleb Awad Admitting Physician: Kaleb [...] 1 Refills, Maintenance, 10/02/19 9:23:00 EST, Capsule, [facility], 147.2, cm, 10/02/19 8:46:00 EST, Height, 58.3, kg, 03/31/19 18:41:0... Start Date: 10/02/19 Status: Ordered donepezil 10 mg oral tablet 10 mg, 1, tablet, By Mouth, Daily at bedtime, # 30 tablet, Refills 11, Tot. Refills 11, Maintenance, 07/25/19 11:23:25 EST, Route to Pharmacy Electronically, [id number], [facility], 145, cm, 07/25/19... Start Date: 07/25/19 Status: Ordered lisinopril 20 mg oral tablet See Instructions, # 30 tablet, Refills 12 Tot. Refills 12, TAKE 1 TABLET BY MOUTH AT BEDTIME, [facility] Start Date: 04/16/19 Status: Ordered mirtazapine [...] Refills, Maintenance, 09/04/19 14:44:00 EST, EC Tablet, [facility], 145, cm, 07/25/19 10:51:00 EST, Height, [...] capsule, 1 Refills, Maintenance, 10/15/19 11:41:00 EST, [facility], 147.2, cm, 10/02/19 [...] lesion(Confirmed) Active Thyroid nodule, per 03-25-2014 scanned [place] problem lsit(Confirmed) Active Vascular calcification(Confirmed) 6 Active Vitamin D deficiency(Confirmed) Active 1moderate on x-ray 2017 2clinically, it would be a balance between followup for possibel surgeyr, versus risk of surgery given her many comobridities including dementia.... [id number] ECHO 4.0 cm 4per Cardiology ntoe: , heart failure with recovered EF presumably non- ischemic CM NYHA III and mild aortic insufficiency 5right L4-S1 polyradiculopathy. Bilateral S1 involvement 6mild on CT Social History Social History Type Response Smoking Status Never smoker; Tobacc o user in household: No entered on: 02/02/14 Sex Female
--- OUTSIDE RECORDS SUMMARY | 2023-07-07 13:44 | XMS_ITS | Continuity of Care Document ---
Author Name Unknown Organization [facility] Address [address] [place] [address]- Care Team Providers Care Opal Polisher Name Role Phone Dipak Tijerina MD Primary Care Physician [phone] Encounter [facility] Date(s): 04/07/20 - 04/14/20 [facility] [address] [place] [address]- [facility] Encounter Diagnosis Hypertension(Discharge Diagnosis) - 04/07/20 CHF (congestive heart failure)(Discharge Diagnosis) - 04/07/20 Colon perforation(Discharge Diagnosis) - 04/07/20 CKD (chronic kidney disease)(Discharge Diagnosis) - 04/07/20 Attending Physician: Dipak Tijerina MD Allergies, Adverse Reactions, Alerts Substance Reaction Severity Status vancomycin Active Vicodin Active Percocet 7.5/325 ITCHING Active Immunizations Given and Recorded Vaccine Date Status Refusal Reason tetanus/diphtheria/pertussis, acel(Tdap) 04/07/20 Given pneumococcal 13-valent vaccine 04/07/20 Given influenza virus vaccine, inactivated 06/12/19 Give n influenza virus vaccine, inactivated 07/15/18 Give n influenza virus vaccine, inactivated 06/10/13 Give n influenza virus vaccine, inactivated 2 06/30/11 Gi naida influenza virus vaccine, inactivated 3 06/16/10 Gi naida influenza virus vaccine, inactivated 4 09/01/09 Gi naida FluLaval (oldterm) 5 06/13/12 Given Tetanus Toxoid 6 04/29/10 Given Pneumococcal Poly (PPV23) (oldterm) 7 09/01/09 Giv en Not Given Vaccine Date Status Refusal Reason pneumococcal 13-valent vaccine 08/04/18 Not Given Patient Refuses pneumococcal 13-valent vaccine 1 12/30/15 Not Give n Patient Refuses 1Admin [...] bedtime, # 120 each, 1 Refills, Maintenance, 01/30/20 12:27:00 EDT, Capsule, [facility], 147.2, cm, 208:50:00 EDT, Height, 58.5, kg, 10/14/19 0:03:00 EST... Start Date: 01/30/20 Status: Ordered donepezil 10 mg oral tablet 10 mg, 1, tablet, By Mouth, Daily at bedtime, # 30 tablet, Refills 11, Tot. Refills 11, Maintenance, 07/25/19 11:23:25 EST, Route to Pharmacy Electronically, [id number], [facility], 145, cm, 07/25/19... Start Date: 07/25/19 Status: Ordered lisinopril 20 mg oral tablet See Instructions, # 30 tablet, Refills 12 Tot. Refills 12, TAKE 1 TABLET BY MOUTH AT BEDTIME, [facility] - Start Date: 04/16/19 Status: Ordered mirtazapine 30 mg oral tablet 1.5 tablet = 45 mg, By Mouth, Daily at bedtime, via Dr. Mrak Storm, # 45 tablet, 0 Refills, Maintenance, 11/05/18 16:37:59 EDT, Tablet Start Date: 11/05/18 Status: Ordered omeprazole 20 mg oral delayed release tablet 1 tablet = 20 mg, By Mouth, Daily, # 30 tablet, 4 Refills, Maintenance, 12/15/19 13:37:00 EDT, EC Tablet, [facility], 147.2, cm, 10/27/19 8:39:00 EDT, Height, 58.5, kg, 10/14/19 0:03:00 EST, Dry Weight Start Date: 12/15/19 Status: Ordered sertraline 100 mg oral tablet 1 tablet = 100 mg, By Mouth, Daily, via Dr. Mark Storm, # 30 tablet, 0 Refills, Maintenance, 07/15/18 14:45:25 EST, Tablet Start Date: 07/15/18 Status: Ordered simethicone 250 mg oral capsule 1 capsule = 250 mg, By Mouth, Daily, PRN as needed for gas, not to exceed 2 capsules/day, # 12 capsule, 1 Refills, Maintenance, 04/07/20 9:34:00 EDT, Capsule, [facility], micronesian labels, 147.2, cm, 04/07/20 9:02:00 EDT, Height, 58.... Start Date: 04/07/20 Status: Ordered Vitamin D3 2000 intl units oral capsule = 2,000 International_Units, By Mouth, Daily, # 100 capsule, 1 Refills, Maintenance, 10/15/19 11:41:00 EST, [facility] [place], 147.2, cm, 10/02/19 [...] lesion(Confirmed) Active Thyroid nodule, per 03-25-2014 scanned [place] problem lsit(Confirmed) Active Vascular calcification(Confirmed) 6 Active Vitamin D deficiency(Confirmed) Active 1moderate on x-ray 2017 2clinically, it would be a balance between followup for possibel surgeyr, versus risk of surgery given her many comobridities including dementia.... [id number] ECHO 4.0 cm 4per Cardiology ntoe: , heart failure with recovered EF presumably non- ischemic CM NYHA III and mild aortic insufficiency 5right L4-S1 polyradiculopathy. Bilateral S1 involvement 6mild on CT Diagnosis Diagnosis Type Effective Dates Health Status Clinical Service Informant Hypertension Discharge Diagnosis 04/07/20 Colon perforation Discharge Diagnosis 04/07/20 CHF (congestive heart failure) Discharge Diagnosis 04/07/20 CKD (chronic kidney disease) Discharge Diagnosis 04/07/20 Vital Signs Most recent to oldest [Reference Range]: 1 Height 147.2 cm (04/07/20 9:02 AM) Weight 57.3 kg (04/07/20 9:02 AM) Oxygen Saturation [94-100 %] 95 % (04/07/20 9:02 AM) Pulse Rate [55-90 bpm] 83 bpm (04/07/20 9:02 AM) Body Mass Index [18.5-24.99] 26.44 *H* (04/07/20 9:02 AM) Blood Pressure [90-138/55-84 mm Hg] 114/ 60mm Hg (04/07/20 9:02 AM) Blood pressure sites Arm, left (04/07/20 9:02 AM) Social History Social History Type Response Smoking Status Never smoker; Tobacc o user in household: No entered on: 02/02/14 Sex Female
--- OUTSIDE RECORDS SUMMARY | 2023-07-07 13:44 | XMS_ITS | Continuity of Care Document ---
Author Name Unknown Organization [facility] Address [address] [place] [address]- Care Team Providers Care Process Tech Name Role Phone Breezy ARMSTRONG, [facility] Primary Care Physician [phone] Encounter [facility] Date(s): 08/31/20 - 09/07/20 [facility] [address] [place], [place] [address] Encounter Diagnosis Pill dysphagia(Discharge Diagnosis) - 08/31/20 Attending Physician: Jeffrey Forrester MD Allergies, Adverse Reactions, Alerts Substance Reaction [...] Not Give n Patient Refuses 1Result Comment: [facility] [id number] 2Admin Note: VIS GIVEN 03/14/2011 3Admin Note: [...] 11 Refills, Maintenance, 06/29/20 14:01:00 EST, Capsule, [facility], swedish labels, 147.2, cm, 06/29/20 13:48:00 EST, Height, 57, kg, 11... Start Date: 06/29/20 Status: Ordered donepezil 10 mg oral tablet 10 mg, 1, tablet, By Mouth, Daily at bedtime, # 30 tablet, Refills 11, Tot. Refills 11, Maintenance, 07/25/19 11:23:25 EST, Route to Pharmacy Electronically, [id number], [facility] [place], 145, cm, 07/25/19... Start Date: 07/25/19 Status: Ordered lisinopril 20 mg oral tablet See Instructions, TAKE 1 TABLET BY MOUTH AT BEDTIME, # 30 tablet, Refills 11, Tot. Refills 11, SoftStop, 04/21/20 16:53:00 EDT, Instructions Replace Required Details, Route to Pharmacy Electronically, [facility], 147.2, cm, ... Start Date: [...] Refills, Maintenance, 06/29/20 14:01:00 EST, EC Tablet, [facility], 147.2, cm, 06/29/20 13:48:00 EST, [...] capsule, 11 Refills, Maintenance, 06/29/20 14:01:00 EST, [facility], swedish labels, 147.2, cm, 06/29/20 13:48:00 EST, Height,... Start Date: 06/29/20 Status: Ordered Vitamin D3 2000 intl units oral capsule = 2,000 International_Units, By Mouth, Daily, # 100 capsule, 1 Refills, Maintenance, 06/30/20 11:25:00 EST, [facility], 147.2, cm, 06/29/20 13:48:00 EST, [...] lesion(Confirmed) Active Thyroid nodule, per 03-25-2014 scanned [place] problem lsit(Confirmed) Active Vascular calcification(Confirmed) 6 Active Vitamin D deficiency(Confirmed) Active 1moderate on x-ray 2017 2clinically, it would be a balance between followup for possibmis farmeryr, versus risk of surgery given her many comobridities including dementia.... [id number] ECHO 4.0 cm 4per Cardiology ntoe: , heart failure with recovered EF presumably non- ischemic CM NYHA III and mild aortic insufficiency 5right L4-S1 polyradiculopathy. Bilateral S1 involvement 6mild on CT Diagnosis Diagnosis Type Effective Dates Health Status Cl inical Service Informant Pill dysphagia Discharge Diagnosis 08/31/20 Social History Social History Type Response Smoking Status Never smoker; Tobacc o user in household: No entered on: 02/02/14 Sex Female
--- OUTSIDE RECORDS SUMMARY | 2023-07-07 13:45 | XMS_ITS | Continuity of Care Document ---
Author Name Unknown Organization [facility] Address [address] [place] [address]- Care Team Providers Care Crabber Name Role Phone Breezy ARMSTRONG, [facility] Primary Care Physician En[place] [facility] [place] Date(s): 10/02/19 - 10/09/19 [facility] [address] [place] [address]- [facility] Attending Physician: Jamie Veneags MD Allergies, Adverse Reactions, Alerts Substance Reaction [...] 1 Refills, Maintenance, 10/02/19 9:23:00 EST, Capsule, [facility], 147.2, cm, 10/02/19 8:46:00 EST, Height, 58.3, kg, 03/31/19 18:41:0... Start Date: 10/02/19 Status: Ordered donepezil 10 mg oral tablet 10 mg, 1, tablet, By Mouth, Daily at bedtime, # 30 tablet, Refills 11, Tot. Refills 11, Maintenance, 07/25/19 11:23:25 EST, Route to Pharmacy Electronically, [id number], [facility], 145, cm, 07/25/19... Start Date: 07/25/19 Status: Ordered lisinopril 20 mg oral tablet See Instructions, # 30 tablet, Refills 12 Tot. Refills 12, TAKE 1 TABLET BY MOUTH AT BEDTIME, [facility] Start Date: 04/16/19 Status: Ordered mirtazapine 30 [...] Refills, Maintenance, 09/04/19 14:44:00 EST, EC Tablet, [facility], 145, cm, 07/25/19 10:51:00 EST, Height, 58.3, [...] capsule, 0 Refills, Maintenance, 09/22/19 10:50:00 EST, [facility] [place], 147.2, cm, 09/22/19 10:26:00 [...] lesion(Confirmed) Active Thyroid nodule, per 03-25-2014 scanned [place] problem lsit(Confirmed) Active Vascular calcification(Confirmed) 6 Active Vitamin D deficiency(Confirmed) Active 1moderate on x-ray 2017 2clinically, it would be a balance between followup for possibel surgeyr, versus risk of surgery given her many comobridities including dementia.... [id number] ECHO 4.0 cm 4per -2017 Cardiology ntoe: , heart failure with recovered EF presumably non- ischemic CM NYHA III and mild aortic insufficiency 5right L4-S1 polyradiculopathy. Bilateral S1 involvement 6mild on CT Vital Signs Most recent to oldest [Reference Range]: 1 Height 147.2 cm (10/02/19 8:46 AM) Weight 59.1 kg (10/02/19 8:46 AM) Oxygen Saturation [94-100 %] 98 % (10/02/19 8:46 AM) Pulse Rate [55-90 bpm] 78 bpm (10/02/19 8:46 AM) Body Mass Index [18.5-24.99] 27.28 *H* (10/02/19 8:46 AM) Blood Pressure [90-138/55-84 mm Hg] 130/ 80mm Hg (10/02/19 8:46 AM) Temperature [96.8-100.4 DegF] 98.7 DegF (10/02/19 8:46 AM) Mode of Delivery (Oxygen) Room air (10/02/19 8:46 AM) Blood pressure sites Arm, left (10/02/19 8:46 AM) Temperature Route Oral (10/02/19 8:46 AM) Social History Social History Type Response Smoking Status Never smoker; Tobacc o user in household: No entered on: 02/02/14 Sex Female
--- OUTSIDE RECORDS SUMMARY | 2023-07-07 13:45 | XMS_ITS | Continuity of Care Document ---
Author Name Unknown Organization [facility] Address [address] [place] [address]- Care Team Providers Care Supervisor Calibration Name Role Phone Breezy ARMSTRONG, Dipak Primary Care Physician [place] [facility] 01/30/20 - 02/29/20 [facility] [address] [place] [address]- [facility] Attending Physician: Kaleb Awad Admitting Physician: Kaleb Awad Referring Physician: AdmKaleb rankin Allergies, Adverse Reactions, Alerts Substance Reaction Severity [...] 07/25/19 11:23:25 EST, Route to Pharmacy Electronically, [id number], [facility] - , 145, cm, 07/25/19... [...] lesion(Confirmed) Active Thyroid nodule, per 03-25-2014 scanned [place] problem lsit(Confirmed) Active Vascular calcification(Confirmed) 6 Active Vitamin D deficiency(Confirmed) Active 1moderate on x-ray 2017 2clinically, it would be a balance between followup for possibel surgeyr, versus risk of surgery given her many comobridities including dementia.... 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 Bilateral S1 involvement 6mild on CT Social History Social History Type Response Smoking Status Never smoker; Tobacc o user in household: No entered on: 02/02/14 Sex Female
--- OUTSIDE RECORDS SUMMARY | 2023-07-07 13:45 | XMS_ITS | Continuity of Care Document ---
Author Name Unknown Organization [facility] Address [address] [place] [address]- Care Team Providers Care Hypertrichologist Name Role Phone Breezy ARMSTRONG, [facility] Primary Care Physician Encounter [facility] Date(s): 08/06/20 - 09/05/20 [facility] [address] [place], [place] [address] Allergies, Adverse Reactions, Alerts Substance Reaction [...] Not Give n Patient Refuses 1Result Comment: [facility] [id number] 2Admin Note: VIS GIVEN 03/14/2011 3Admin Note: [...] 11 Refills, Maintenance, 06/29/20 14:01:00 EST, Capsule, [facility], israeli labels, 147.2, cm, 06/29/20 13:48:00 EST, Height, 57, kg, 11... Start Date: 06/29/20 Status: Ordered donepezil 10 mg oral tablet 10 mg, 1, tablet, By Mouth, Daily at bedtime, # 30 tablet, Refills 11, Tot. Refills 11, Maintenance, 07/25/19 11:23:25 EST, Route to Pharmacy Electronically, [id number], [facility] [place], 145, cm, 07/25/19... Start Date: 07/25/19 Status: Ordered lisinopril 20 mg oral tablet See Instructions, TAKE 1 TABLET BY MOUTH AT BEDTIME, # 30 tablet, Refills 11, Tot. Refills 11, SoftStop, 04/21/20 16:53:00 EDT, Instructions Replace Required Details, Route to Pharmacy Electronically, [facility], 147.2, cm, 04/07/... Start Date: 04/21/20 Status: Ordered mirtazapine 30 mg oral tablet 1.5 tablet = 45 mg, By Mouth, Daily at bedtime, via Dr. Makr Storm, # 45 tablet, 0 Refills, Maintenance, 11/05/18 16:37:59 EDT, Tablet Start Date: 11/05/18 Status: Ordered omeprazole 20 mg oral delayed release tablet 1 tablet = 20 mg, By Mouth, Daily, # 90 tablet, 11 Refills, Maintenance, 06/29/20 14:01:00 EST, EC Tablet, [facility], 147.2, cm, 06/29/20 13:48:00 EST, Height, [...] capsule, 11 Refills, Maintenance, 06/29/20 14:01:00 EST, [facility], israeli labels, 147.2, cm, 06/29/20 13:48:00 EST, Height,... Start Date: 06/29/20 Status: Ordered Vitamin D3 2000 intl units oral capsule = 2,000 International_Units, By Mouth, Daily, # 100 capsule, 1 Refills, Maintenance, 06/30/20 11:25:00 EST, [facility], 147.2, cm, 06/29/20 13:48:00 EST, Height, [...] lesion(Confirmed) Active Thyroid nodule, per 03-25-2014 scanned [place] problem lsit(Confirmed) Active Vascular calcification(Confirmed) 6 Active Vitamin D deficiency(Confirmed) Active 1moderate on x-ray 2017 2clinically, it would be a balance between followup for possibel surgeyr, versus risk of surgery given her many comobridities including dementia.... 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 Bilateral S1 involvement 6mild on CT Social History Social History Type Response Smoking Status Never smoker; Tobacc o user in household: No entered on: 02/02/14 Sex Female
--- OUTSIDE RECORDS SUMMARY | 2023-07-07 13:45 | XMS_ITS | Continuity of Care Document ---
Author Name Unknown Organization [facility] Address [address] [place] [address]- Care Team Providers Care Wastewater Manager Name Role Phone Breezy ARMSTRONG, [facility] Primary Care Physician Encounter [facility] Date(s): 04/21/20 - 05/21/20 [facility] [address] [place] [address]- [facility] Allergies, Adverse Reactions, Alerts Substance Reaction Severity [...] Not Give n Patient Refuses 1Result Comment: [facility] [id number] 2Admin Note: VIS GIVEN 03/14/2011 3Admin Note: [...] 1 Refills, Maintenance, 01/30/20 12:27:00 EDT, Capsule, [facility], 147.2, cm, 208:50:00 EDT, Height, 58.5, kg, 10/14/19 0:03:00 EST... Start Date: 01/30/20 Status: Ordered donepezil 10 mg oral tablet 10 mg, 1, tablet, By Mouth, Daily at bedtime, # 30 tablet, Refills 11, Tot. Refills 11, Maintenance, 07/25/19 11:23:25 EST, Route to Pharmacy Electronically, [id number], [facility] [place], 145, cm, 07/25/19... Start Date: 07/25/19 Status: Ordered lisinopril 20 mg oral tablet See Instructions, TAKE 1 TABLET BY MOUTH AT BEDTIME, # 30 tablet, Refills 11, Tot. Refills 11, SoftStop, 04/21/20 16:53:00 EDT, Instructions Replace Required Details, Route to Pharmacy Electronically, [facility], 147.2, cm, 04/07/... Start Date: [...] Refills, Maintenance, 05/07/20 13:52:00 EDT, EC Tablet, [facility], 147.2, cm, 04/07/20 9:02:00 EDT, [...] 1 Refills, Maintenance, 04/07/20 9:34:00 EDT, Capsule, [facility], tristanian labels, 147.2, cm, 04/07/20 9:02:00 EDT, Height, 58.... Start Date: 04/07/20 Status: Ordered Vitamin D3 2000 intl units oral capsule = 2,000 International_Units, By Mouth, Daily, # 100 capsule, 1 Refills, Maintenance, 10/15/19 11:41:00 EST, [facility] [place], 147.2, cm, 10/02/19 [...] lesion(Confirmed) Active Thyroid nodule, per 03-25-2014 scanned [place] problem lsit(Confirmed) Active Vascular calcification(Confirmed) 6 Active Vitamin D deficiency(Confirmed) Active 1moderate on x-ray 2017 2clinically, it would be a balance between followup for possibel surgeyr, versus risk of surgery given her many comobridities including dementia.... 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 Bilateral S1 involvement 6mild on CT Social History Social History Type Response Smoking Status Never smoker; Tobacc o user in household: No entered on: 02/02/14 Sex Female
--- OUTSIDE RECORDS SUMMARY | 2023-07-07 13:45 | XMS_ITS | Continuity of Care Document ---
Author Name Unknown Organization [facility] Address [address] [place] [address]- Care Team Providers Care Welding Equipment Repairer Name Role Phone Breezy ARMSTRONG, Dipak Primary Care Physician [phone] Encounter [facility] Date(s): 10/17/19 - 10/27/[address] [address]- [facility] Attending Physician: Kaleb Awad [...] 1 Refills, Maintenance, 10/02/19 9:23:00 EST, Capsule, [facility], 147.2, cm, 10/02/19 8:46:00 EST, Height, 58.3, kg, 03/31/19 18:41:0... Start Date: 10/02/19 Status: Ordered donepezil 10 mg oral tablet 10 mg, 1, tablet, By Mouth, Daily at bedtime, # 30 tablet, Refills 11, Tot. Refills 11, Maintenance, 07/25/19 11:23:25 EST, Route to Pharmacy Electronically, [id number], [facility], 145, cm, 07/25/19... Start Date: 07/25/19 Status: Ordered lisinopril 20 mg oral tablet See Instructions, # 30 tablet, Refills 12 Tot. Refills 12, TAKE 1 TABLET BY MOUTH AT BEDTIME, [facility] Start Date: 04/16/19 Status: Ordered mirtazapine [...] Maintenance, 09/04/19 14:44:00 EST, EC Tablet, [facility], 145, cm, 07/25/19 10:51:00 EST, [...] capsule, 1 Refills, Maintenance, 10/15/19 11:41:00 EST, [facility] [place], 147.2, cm, 10/02/19 8:46:00 [...] lesion(Confirmed) Active Thyroid nodule, per 03-25-2014 scanned [place] problem lsit(Confirmed) Active Vascular calcification(Confirmed) 6 Active Vitamin D deficiency(Confirmed) Active 1moderate on x-ray 2017 2clinically, it would be a balance between followup for possibel surgeyr, versus risk of surgery given her many comobridities including dementia.... 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 Bilateral S1 involvement 6mild on CT Social History Social History Type Response Smoking Status Never smoker; Tobacc o user in household: No entered on: 02/02/14 Sex Female
--- OUTSIDE RECORDS SUMMARY | 2023-07-07 13:45 | XMS_ITS | Continuity of Care Document ---
Author Name Unknown Organization [facility] Address [address] [place] [address]- Care Team Providers Care Oyster Shipper Name Role Phone Breezy ARMSTRONG, [facility] Primary Care Physician [phone] Encounter [facility] Date(s): 12/07/20 - 01/06/21 [facility] [address] [place], [place] [address] Allergies, Adverse Reactions, Alerts Substance Reaction [...] Not Give n Patient Refuses 1Result Comment: [facility] [id number] 2Admin Note: VIS GIVEN 03/14/2011 3Admin Note: [...] 11 Refills, Maintenance, 06/29/20 14:01:00 EST, Capsule, [facility], scottish labels, 147.2, cm, 06/29/20 13:48:00 EST, Height, 57, kg, 11... Start Date: 06/29/20 Status: Ordered donepezil 10 mg oral tablet 10 mg, 1, tablet, By Mouth, Daily at bedtime, # 30 tablet, Refills 11, Tot. Refills 11, Maintenance, 07/25/19 11:23:25 EST, Route to Pharmacy Electronically, [id number], [facility] [place], 145, cm, 07/25/19... Start Date: 07/25/19 Status: Ordered lisinopril 20 mg oral tablet See Instructions, TAKE 1 TABLET BY MOUTH AT BEDTIME, # 30 tablet, Refills 11, Tot. Refills 11, SoftStop, 04/21/20 16:53:00 EDT, Instructions Replace Required Details, Route to Pharmacy Electronically, [facility], 147.2, cm, ... Start Date: [...] Refills, Maintenance, 06/29/20 14:01:00 EST, EC Tablet, [facility], 147.2, cm, 06/29/20 13:48:00 EST, [...] capsule, 11 Refills, Maintenance, 06/29/20 14:01:00 EST, [facility], scottish labels, 147.2, cm, 06/29/20 13:48:00 EST, Height,... Start Date: 06/29/20 Status: Ordered Vitamin D3 2000 intl units oral capsule 1 capsule, By Mouth, Daily in AM, # 100 capsule, 1 Refills, Maintenance, 12/13/20 9:52:00 EDT, [facility], 155, cm, 12/01/20 11:11:00 EDT, Height, [...] lesion(Confirmed) Active Thyroid nodule, per 03-25-2014 scanned [place] problem lsit(Confirmed) Active Vascular calcification(Confirmed) 6 Active Vitamin D deficiency(Confirmed) Active 1moderate on x-ray 2017 2clinically, it would be a balance between followup for possibel surgeyr, versus risk of surgery given her many comobridities including dementia.... 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 Bilateral S1 involvement 6mild on CT Social History Social History Type Response Smoking Status Never smoker; Tobacc o user in household: No entered on: 02/02/14 Sex Female
--- OUTSIDE RECORDS SUMMARY | 2023-07-07 13:45 | XMS_ITS | Continuity of Care Document ---
Author Name Unknown Organization [facility] Address [address] [place] [address]- Care Team Providers Care Percussion Teacher Name Role Phone Dipak Tijerina MD Primary Care Physician [place] [facility] [place]): [place]/09/20 [facility] [address] [place] [address]- [facility] Encounter Diagnosis Allergic rhinitis(Discharge Diagnosis) - 12/10/19 Attending Physician: Dipak Tijerina MD Allergies, Adverse [...] Refills, Maintenance, 10/02/19 9:23:00 EST, Capsule, [facility], 147.2, cm, 10/02/19 8:46:00 EST, Height, 58.3, kg, 03/31/19 18:41:0... Start Date: 10/02/19 Status: Ordered donepezil 10 mg oral tablet 10 mg, 1, tablet, By Mouth, Daily at bedtime, # 30 tablet, Refills 11, Tot. Refills 11, Maintenance, 07/25/19 11:23:25 EST, Route to Pharmacy Electronically, [id number], [facility], 145, cm, 07/25/19... Start Date: 07/25/19 Status: Ordered lisinopril 20 mg oral tablet See Instructions, # 30 tablet, Refills 12 Tot. Refills 12, TAKE 1 TABLET BY MOUTH AT BEDTIME, [facility] Start Date: 04/16/19 Status: Ordered mirtazapine [...] Refills, Maintenance, 12/15/19 13:37:00 EDT, EC Tablet, [facility], 147.2, cm, 10/27/19 8:39:00 EDT, [...] capsule, 1 Refills, Maintenance, 10/15/19 11:41:00 EST, [facility] [place], 147.2, cm, 10/02/19 [...] lesion(Confirmed) Active Thyroid nodule, per 03-25-2014 scanned [place] problem lsit(Confirmed) Active Vascular calcification(Confirmed) 6 Active Vitamin D deficiency(Confirmed) Active 1moderate on x-ray 2017 2clinically, it would be a balance between followup for possibel surgeyr, versus risk of surgery given her many comobridities including dementia.... 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 Bilateral S1 involvement 6mild on CT Diagnosis Diagnosis Type Effective Dates Health Status Cl inical Service Informant Allergic rhinitis Discharge Diagnosis 12/10/19 Social History Social History Type Response Smoking Status Never smoker; Tobacc o user in household: No entered on: 02/02/14 Sex Female
--- OUTSIDE RECORDS SUMMARY | 2023-07-07 13:45 | XMS_ITS | Continuity of Care Document ---
Author Name Unknown Organization [facility] Address [address] [place] [address]- Care Team Providers Care Snuff Drier Name Role Phone Breezy ARMSTRONG, Dipak Primary Care Physician [facility] Date[facility]s): 01/[facility]/21 - 05/08/21 [facility] [address] [place], [place] [address] Attending Physician: Dipak Tijerina MD Allergies, Adverse [...] Not Give n Patient Refuses 1Result Comment: [facility] [id number] 2Admin Note: VIS GIVEN 03/14/2011 3Admin Note: [...] 11 Refills, Maintenance, 06/29/20 14:01:00 EST, Capsule, [facility], sami labels, 147.2, cm, 06/29/20 13:48:00 EST, Height, 57, kg, 11... Start Date: 06/29/20 Status: Ordered donepezil 10 mg oral tablet 10 mg, 1, tablet, By Mouth, Daily at bedtime, # 30 tablet, Refills 11, Tot. Refills 11, Maintenance, 07/25/19 11:23:25 EST, Route to Pharmacy Electronically, [id number], [facility] [place], 145, cm, 07/25/19... Start Date: 07/25/19 Status: Ordered lisinopril 20 mg oral tablet See Instructions, TAKE 1 TABLET BY MOUTH AT BEDTIME, # 30 tablet, Refills 5, Tot. Refills 5, Soft Stop, 04/27/21 14:27:00 EDT, Instructions Replace Required Details, Route to Pharmacy Electronically,[facility], 155, cm, 02/16/21 1... Start [...] Refills, Maintenance, 06/29/20 14:01:00 EST, EC Tablet, [facility], 147.2, cm, 06/29/20 13:48:00 EST, [...] capsule, 11 Refills, Maintenance, 06/29/20 14:01:00 EST, [facility], sami labels, 147.2, cm, 06/29/20 13:48:00 EST, Height,... Start Date: 06/29/20 Status: Ordered Vitamin D3 2000 intl units oral capsule 1 capsule, By Mouth, Daily in AM, # 100 capsule, 1 Refills, Maintenance, 12/13/20 9:52:00 EDT, [facility], 155, cm, 12/01/20 11:11:00 EDT, [...] lesion(Confirmed) Active Thyroid nodule, per 03-25-2014 scanned [place] problem lsit(Confirmed) Active Vascular calcification(Confirmed) 6 Active Vitamin D deficiency(Confirmed) Active 1moderate on x-ray 2017 2clinically, it would be a balance between followup for possibel surgeyr, versus risk of surgery given her many comobridities including dementia.... 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 Bilateral S1 involvement 6mild on CT Social History Social History Type Response Smoking Status Never smoker; Tobacc o user in household: No entered on: 02/02/14 Sex Female
--- OUTSIDE RECORDS SUMMARY | 2023-07-07 13:45 | XMS_ITS | Continuity of Care Document ---
Author Name Unknown Organization [facility] Address [address] [place] [address]- Care Team Providers Care Indigo Vat Tender Cloth Name Role Phone Breezy ARMSTRONG, [facility] Primary [facility] Physician [facility] Date(s): 07/27/20 - 08/26/20 [facility] [address] [place], [place] [address] Attending Physician: Kaleb Awad Admitting Physician: Kaleb [...] Comment: [facility] [id number] 2Admin Note: VIS GIVEN 03/14/2011 3Admin Note: [...] 11 Refills, Maintenance, 06/29/20 14:01:00 EST, Capsule, [facility], sami labels, 147.2, cm, 06/29/20 13:48:00 EST, Height, 57, kg, 11... Start Date: 06/29/20 Status: Ordered donepezil 10 mg oral tablet 10 mg, 1, tablet, By Mouth, Daily at bedtime, # 30 tablet, Refills 11, Tot. Refills 11, Maintenance, 07/25/19 11:23:25 EST, Route to Pharmacy Electronically, [id number], [facility] [place], 145, cm, 07/25/19... Start Date: 07/25/19 Status: Ordered lisinopril 20 mg oral tablet See Instructions, TAKE 1 TABLET BY MOUTH AT BEDTIME, # 30 tablet, Refills 11, Tot. Refills 11, SoftStop, 04/21/20 16:53:00 EDT, Instructions Replace Required Details, Route to Pharmacy Electronically, [facility], 147.2, cm, ... Start Date: [...] Refills, Maintenance, 06/29/20 14:01:00 EST, EC Tablet, [facility], 147.2, cm, 06/29/20 13:48:00 EST, [...] capsule, 11 Refills, Maintenance, 06/29/20 14:01:00 EST, [facility], sami labels, 147.2, cm, 06/29/20 13:48:00 EST, Height,... Start Date: 06/29/20 Status: Ordered Vitamin D3 2000 intl units oral capsule = 2,000 International_Units, By Mouth, Daily, # 100 capsule, 1 Refills, Maintenance, 06/30/20 11:25:00 EST, [facility], 147.2, cm, 06/29/20 13:48:00 EST, [...] lesion(Confirmed) Active Thyroid nodule, per 03-25-2014 scanned [place] problem lsit(Confirmed) Active Vascular calcification(Confirmed) 6 Active Vitamin D deficiency(Confirmed) Active 1moderate on x-ray 2017 2clinically, it would be a balance between followup for possibel surgeyr, versus risk of surgery given her many comobridities including dementia.... 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 Bilateral S1 involvement 6mild on CT Social History Social History Type Response Smoking Status Never smoker; Tobacc o user in household: No entered on: 02/02/14 Sex Female
--- OUTSIDE RECORDS SUMMARY | 2023-07-07 13:45 | XMS_ITS | Continuity of Care Document ---
Author Name Unknown Organization [facility] Address [address] [place] [address]- Care Team Providers Care Extrusion Press Adjuster Name Role Phone Breezy ARMSTRONG, [facility] Primary Care Physician [facility] Date(s): 07/22/20 - 08/21/20 [facility] [address] [place], [place] [address] Allergies, Adverse Reactions, Alerts Substance Reaction Severity [...] Not Give n Patient Refuses 1Result Comment: [facility] [id number] 2Admin Note: VIS GIVEN 03/14/2011 3Admin Note: [...] 11 Refills, Maintenance, 06/29/20 14:01:00 EST, Capsule, [facility], cuban labels, 147.2, cm, 06/29/20 13:48:00 EST, Height, 57, kg, 11... Start Date: 06/29/20 Status: Ordered donepezil 10 mg oral tablet 10 mg, 1, tablet, By Mouth, Daily at bedtime, # 30 tablet, Refills 11, Tot. Refills 11, Maintenance, 07/25/19 11:23:25 EST, Route to Pharmacy Electronically, [id number], [facility] [place], 145, cm, 07/25/19... Start Date: 07/25/19 Status: Ordered lisinopril 20 mg oral tablet See Instructions, TAKE 1 TABLET BY MOUTH AT BEDTIME, # 30 tablet, Refills 11, Tot. Refills 11, SoftStop, 04/21/20 16:53:00 EDT, Instructions Replace Required Details, Route to Pharmacy Electronically, [facility], 147.2, cm, ... Start Date: [...] Refills, Maintenance, 06/29/20 14:01:00 EST, EC Tablet, [facility], 147.2, cm, 06/29/20 13:48:00 EST, [...] capsule, 11 Refills, Maintenance, 06/29/20 14:01:00 EST, [facility], cuban labels, 147.2, cm, 06/29/20 13:48:00 EST, Height,... Start Date: 06/29/20 Status: Ordered Vitamin D3 2000 intl units oral capsule = 2,000 International_Units, By Mouth, Daily, # 100 capsule, 1 Refills, Maintenance, 06/30/20 11:25:00 EST, [facility], 147.2, cm, 06/29/20 13:48:00 EST, [...] lesion(Confirmed) Active Thyroid nodule, per 03-25-2014 scanned [place] problem lsit(Confirmed) Active Vascular calcification(Confirmed) 6 Active Vitamin D deficiency(Confirmed) Active 1moderate on x-ray 2017 2clinically, it would be a balance between followup for possibel surgeyr, versus risk of surgery given her many comobridities including dementia.... 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 Bilateral S1 involvement 6mild on CT Social History Social History Type Response Smoking Status Never smoker; Tobacc o user in household: No entered on: 02/02/14 Sex Female
--- OUTSIDE RECORDS SUMMARY | 2023-07-07 13:45 | XMS_ITS | Continuity of Care Document ---
Author Name Unknown Organization [facility] Address [address] [place] [address]- Care Team Providers Care Mash Preparatory Operator Name Role Phone Dipak Tijerina MD Primary Care Physician [place] [facility] [place] 11[place]18[place]19 [facility] [address] [place] [address]- [facility] Encounter Diagnosis Rash/skin eruption(Discharge Diagnosis) - 11/11/19 Attending Physician: Dipak Tijerina MD Allergies, Adverse [...] Refills, Maintenance, 10/02/19 9:23:00 EST, Capsule, [facility], 147.2, cm, 10/02/19 8:46:00 EST, Height, 58.3, kg, 03/31/19 18:41:0... Start Date: 10/02/19 Status: Ordered donepezil 10 mg oral tablet 10 mg, 1, tablet, By Mouth, Daily at bedtime, # 30 tablet, Refills 11, Tot. Refills 11, Maintenance, 07/25/19 11:23:25 EST, Route to Pharmacy Electronically, [id number], [facility], 145, cm, 07/25/19... Start Date: 07/25/19 Status: Ordered hydrocortisone 1% topical cream 1 application, Topically, 2 times a day, apply in a thin film to the affected skin and rub in gently and completely, # 454 Gm, 0 Refills, Acute 12/12/19 11:59:00 EDT, 11/11/19 11:58:00 EDT, Cream, [facility], mont[place]erratian labels please,... Start Date: 11/11/19 Stop Date: 12/12/19 Status: Ordered lisinopril 20 mg oral tablet See Instructions, # 30 tablet, Refills 12 Tot. Refills 12, TAKE 1 TABLET BY MOUTH AT BEDTIME, [facility] Start Date: 04/16/19 [...] Refills, Maintenance, 09/04/19 14:44:00 EST, EC Tablet, [facility], 145, cm, 07/25/19 10:51:00 EST, Height, [...] 1 Refills, Maintenance, 10/15/19 11:41:00 EST, [facility], 147.2, cm, 10/02/19 [...] lesion(Confirmed) Active Thyroid nodule, per 03-25-2014 scanned [place] problem lsit(Confirmed) Active Vascular calcification(Confirmed) 6 Active Vitamin D deficiency(Confirmed) Active 1moderate on x-ray 2017 2clinically, it would be a balance between followup for possmorro estrada, versus risk of surgery given her many comobridities including dementia.... 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 Bilateral S1 involvement 6mild on CT Diagnosis Diagnosis Type Effective Dates Health Status Cl inical Service Informant Rash/skin eruption Discharge Diagnosis 11/11/19 Social History Social History Type Response Smoking Status Never smoker; Tobacc o user in household: No entered on: 02/02/14 Sex Female
--- OUTSIDE RECORDS SUMMARY | 2023-07-07 13:45 | XMS_ITS | Continuity of Care Document ---
Author Name Unknown Organization [facility] Address [address] [place] [address]- Care Team Providers Care Gunner'S Mate M Name Role Phone Breezy ARMSTRONG, [facility] Primary Care Physician [facility] Date(s): 09/10/20 - 10/10/20 [facility] [address] [place], [place] [address] Allergies, Adverse Reactions, Alerts Substance Reaction Severity [...] [facility] [id number] 2Admin Note: VIS GIVEN 03/14/2011 3Admin Note: [...] 11 Refills, Maintenance, 06/29/20 14:01:00 EST, Capsule, [facility], kosovan labels, 147.2, cm, 06/29/20 13:48:00 EST, Height, 57, kg, 11... Start Date: 06/29/20 Status: Ordered donepezil 10 mg oral tablet 10 mg, 1, tablet, By Mouth, Daily at bedtime, # 30 tablet, Refills 11, Tot. Refills 11, Maintenance, 07/25/19 11:23:25 EST, Route to Pharmacy Electronically, [id number], [facility] [place], 145, cm, 07/25/19... Start Date: 07/25/19 Status: Ordered lisinopril 20 mg oral tablet See Instructions, TAKE 1 TABLET BY MOUTH AT BEDTIME, # 30 tablet, Refills 11, Tot. Refills 11, SoftStop, 04/21/20 16:53:00 EDT, Instructions Replace Required Details, Route to Pharmacy Electronically, [facility], 147.2, cm, ... Start Date: [...] Refills, Maintenance, 06/29/20 14:01:00 EST, EC Tablet, [facility], 147.2, cm, 06/29/20 13:48:00 EST, [...] capsule, 11 Refills, Maintenance, 06/29/20 14:01:00 EST, [facility], kosovan labels, 147.2, cm, 06/29/20 13:48:00 EST, Height,... Start Date: 06/29/20 Status: Ordered Vitamin D3 2000 intl units oral capsule = 2,000 International_Units, By Mouth, Daily, # 100 capsule, 1 Refills, Maintenance, 06/30/20 11:25:00 EST, [facility], 147.2, cm, 06/29/20 13:48:00 EST, [...] lesion(Confirmed) Active Thyroid nodule, per 03-25-2014 scanned [place] problem lsit(Confirmed) Active Vascular calcification(Confirmed) 6 Active Vitamin D deficiency(Confirmed) Active 1moderate on x-ray 2017 2clinically, it would be a balance between followup for possibel surgeyr, versus risk of surgery given her many comobridities including dementia.... 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 Bilateral S1 involvement 6mild on CT Social History Social History Type Response Smoking Status Never smoker; Tobacc o user in household: No entered on: 02/02/14 Sex Female
--- OUTSIDE RECORDS SUMMARY | 2023-07-07 13:45 | XMS_ITS | Continuity of Care Document ---
Author Name Unknown Organization [facility] Address [address] [place] [address]- Care Team Providers Care Aquatic Instructor Name Role Phone Breezy ARMSTRONG, Dipak Primary Care Physician [phone] [facility] Date(s): 07/27/20 - 08/03/20 [facility] [address] [place] [address]- Encounter Diagnosis Dysuria(Discharge Diagnosis) - 07/27/20 Pain in the abdomen(Discharge Diagnosis) - 07/27/20 Diabetes mellitus - adult onset(Discharge Diagnosis) - 07/27/20 Attending Physician: Dipak Tijerina MD Allergies, Adverse [...] Not Give n Patient Refuses 1Result Comment: [facility] [id number] 2Admin Note: VIS GIVEN 03/14/2011 3Admin Note: [...] 11 Refills, Maintenance, 06/29/20 14:01:00 EST, Capsule, [facility], croatian labels, 147.2, cm, 06/29/20 13:48:00 EST, Height, 57, kg, 11... Start Date: 06/29/20 Status: Ordered donepezil 10 mg oral tablet 10 mg, 1, tablet, By Mouth, Daily at bedtime, # 30 tablet, Refills 11, Tot. Refills 11, Maintenance, 07/25/19 11:23:25 EST, Route to Pharmacy Electronically, [id number], [facility] [place], 145, cm, 07/25/19... Start Date: 07/25/19 Status: Ordered lisinopril 20 mg oral tablet See Instructions, TAKE 1 TABLET BY MOUTH AT BEDTIME, # 30 tablet, Refills 11, Tot. Refills 11, SoftStop, 04/21/20 16:53:00 EDT, Instructions Replace Required Details, Route to Pharmacy Electronically, [facility], 147.2, cm, 04/07/... Start Date: [...] Refills, Maintenance, 06/29/20 14:01:00 EST, EC Tablet, [facility], 147.2, cm, 06/29/20 13:48:00 EST, [...] capsule, 11 Refills, Maintenance, 06/29/20 14:01:00 EST, [facility], croatian labels, 147.2, cm, 06/29/20 13:48:00 EST, Height,... Start Date: 06/29/20 Status: Ordered Vitamin D3 2000 intl units oral capsule = 2,000 International_Units, By Mouth, Daily, # 100 capsule, 1 Refills, Maintenance, 06/30/20 11:25:00 EST, [facility], 147.2, cm, 06/29/20 13:48:00 EST, [...] lesion(Confirmed) Active Thyroid nodule, per 03-25-2014 scanned [place] problem lsit(Confirmed) Active Vascular calcification(Confirmed) 6 Active Vitamin D deficiency(Confirmed) Active 1moderate on x-ray 2017 2clinically, it would be a balance between followup for possmorro farmeryr, versus risk of surgery given her many comobridities including dementia.... 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 Bilateral S1 involvement 6mild on CT Diagnosis Diagnosis Type Effective Dates Health Status Cl inical Service Informant Dysuria Discharge Diagnosis 07/27/20 Pain in the abdomen Discharge Diagnosis 07/27/20 Diabetes mellitus - adult onset Discharge Diagnosis 07/27/20 Social History Social History Type Response Smoking Status Never smoker; Tobacc o user in household: No entered on: 02/02/14 Sex Female
--- OUTSIDE RECORDS SUMMARY | 2023-07-07 13:45 | XMS_ITS | Continuity of Care Document ---
Author Name Unknown Organization [facility] Address [address] [place] [address]- Care Team Providers Care Ironer Machine Name Role Phone Breezy ARMSTRONG, [facility] Primary Care Physician En[facility] [place] Date(s): 09/22/19 - 10/02/19 [facility] [address] [place] [address]- [facility] Attending Physician: Kaleb Awad Admitting [...] Refills, Maintenance, 10/02/19 9:23:00 EST, Capsule, [facility], 147.2, cm, 10/02/19 8:46:00 EST, Height, 58.3, kg, 03/31/19 18:41:0... Start Date: 10/02/19 Status: Ordered donepezil 10 mg oral tablet 10 mg, 1, tablet, By Mouth, Daily at bedtime, # 30 tablet, Refills 11, Tot. Refills 11, Maintenance, 07/25/19 11:23:25 EST, Route to Pharmacy Electronically, [id number], [facility], 145, cm, 07/25/19... Start Date: 07/25/19 Status: Ordered lisinopril 20 mg oral tablet See Instructions, # 30 tablet, Refills 12 Tot. Refills 12, TAKE 1 TABLET BY MOUTH AT BEDTIME, [facility] Start Date: 04/16/19 Status: Ordered mirtazapine [...] Maintenance, 09/04/19 14:44:00 EST, EC Tablet, [facility], 145, cm, 07/25/19 10:51:00 EST, Height, [...] capsule, 0 Refills, Maintenance, 09/22/19 10:50:00 EST, [facility], 147.2, cm, 09/22/19 [...] lesion(Confirmed) Active Thyroid nodule, per 03-25-2014 scanned [place] problem lsit(Confirmed) Active Vascular calcification(Confirmed) 6 Active Vitamin D deficiency(Confirmed) Active 1moderate on x-ray 2017 2clinically, it would be a balance between followup for possibel surgeyr, versus risk of surgery given her many comobridities including dementia.... 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 Bilateral S1 involvement 6mild on CT 11-2018 Social History Social History Type Response Smoking Status Never smoker; Tobacc o user in household: No entered on: 02/02/14 Sex Female
--- OUTSIDE RECORDS SUMMARY | 2023-07-07 13:45 | XMS_ITS | Continuity of Care Document ---
Author Name Unknown Organization [facility] Address [address] [place] [address]- Care Team Providers Care Director Of Marketing Name Role Phone Breezy ARMSTRONG, Dipak Primary Care Physician [phone] Encounter [facility] [place] Date(s): 06/14/19 - 10/12/19 [facility] [address] [place] [address]- [facility] Attending Physician: Amol Burger MD Admitting Physician: Amol Burger MD Referring Physician: Minda Garcia DO Allergies, Adverse Reactions, Alerts Substance Reaction Severity [...] Refills, Maintenance, 10/02/19 9:23:00 EST, Capsule, [facility], 147.2, cm, 10/02/19 8:46:00 EST, Height, 58.3, kg, 03/31/19 18:41:0... Start Date: 10/02/19 Status: Ordered donepezil 10 mg oral tablet 10 mg, 1, tablet, By Mouth, Daily at bedtime, # 30 tablet, Refills 11, Tot. Refills 11, Maintenance, 07/25/19 11:23:25 EST, Route to Pharmacy Electronically, [id number], [facility], 145, cm, 07/25/19... Start Date: 07/25/19 Status: Ordered lisinopril 20 mg oral tablet See Instructions, # 30 tablet, Refills 12 Tot. Refills 12, TAKE 1 TABLET BY MOUTH AT BEDTIME, [facility] Start Date: 04/16/19 Status: Ordered [...] Refills, Maintenance, 09/04/19 14:44:00 EST, EC Tablet, [facility], 145, cm, 07/25/19 10:51:00 EST, Height, [...] capsule, 0 Refills, Maintenance, 09/22/19 10:50:00 EST, [facility], 147.2, cm, 09/22/19 10:26:00 [...] lesion(Confirmed) Active Thyroid nodule, per 03-25-2014 scanned [place] problem lsit(Confirmed) Active Vascular calcification(Confirmed) 6 Active Vitamin D deficiency(Confirmed) Active 1moderate on x-ray 2017 2clinically, it would be a balance between followup for possibel surgeyr, versus risk of surgery given her many comobridities including dementia.... 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 Bilateral S1 involvement 6mild on CT Social History Social History Type Response Smoking Status Never smoker; Tobacc o user in household: No entered on: 02/02/14 Sex Female
--- OUTSIDE RECORDS SUMMARY | 2023-07-07 13:45 | XMS_ITS | Continuity of Care Document ---
Author Name Unknown Organization [facility] Address [address] [place] [address]- Care Team Providers Care Duct Layer Supervisor Name Role Phone Breezy ARMSTRONG, Dipak Primary Care Physician [place] [facility] [place](s): 12/01/20 - 12/08/20 [facility] [address] [place], [place] [address] Attending Physician: Mark Rios MD Referring Physician: Dipak Tijerina MD Allergies, [...] Not Give n Patient Refuses 1Result Comment: [facility] [id number] 2Admin Note: VIS GIVEN 03/14/2011 3Admin Note: [...] 11 Refills, Maintenance, 06/29/20 14:01:00 EST, Capsule, [facility], hungarian labels, 147.2, cm, 06/29/20 13:48:00 EST, Height, 57, kg, 11... Start Date: 06/29/20 Status: Ordered donepezil 10 mg oral tablet 10 mg, 1, tablet, By Mouth, Daily at bedtime, # 30 tablet, Refills 11, Tot. Refills 11, Maintenance, 07/25/19 11:23:25 EST, Route to Pharmacy Electronically, [id number], [facility] [place], 145, cm, 07/25/19... Start Date: 07/25/19 Status: Ordered lisinopril 20 mg oral tablet See Instructions, TAKE 1 TABLET BY MOUTH AT BEDTIME, # 30 tablet, Refills 11, Tot. Refills 11, SoftStop, 04/21/20 16:53:00 EDT, Instructions Replace Required Details, Route to Pharmacy Electronically, [facility], 147.2, cm, ... Start [...] Refills, Maintenance, 06/29/20 14:01:00 EST, EC Tablet, [facility], 147.2, cm, 06/29/20 13:48:00 [...] capsule, 11 Refills, Maintenance, 06/29/20 14:01:00 EST, [facility], hungarian labels, 147.2, cm, 06/29/20 13:48:00 EST, Height,... Start Date: 06/29/20 Status: Ordered Vitamin D3 2000 intl units oral capsule = 2,000 International_Units, By Mouth, Daily, # 100 capsule, 1 Refills, Maintenance, 06/30/20 11:25:00 EST, [facility], 147.2, cm, 06/29/20 13:48:00 [...] lesion(Confirmed) Active Thyroid nodule, per 03-25-2014 scanned [place] problem lsit(Confirmed) Active Vascular calcification(Confirmed) 6 Active Vitamin D deficiency(Confirmed) Active 1moderate on x-ray 2017 2clinically, it would be a balance between followup for possibel surgeyr, versus risk of surgery given her many comobridities including dementia.... 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 Bilateral S1 involvement 6mild on CT Vital Signs Most recent to oldest [Reference Range]: 1 Height 155 cm (12/01/20 11:11 AM) Weight 54.2 kg (12/01/20 11:11 AM) Oxygen Saturation [94-100 %] 96 % (12/01/20 11:11 AM) Pulse Rate [55-90 bpm] 69 bpm (12/01/20 11:11 AM) Body Mass Index [18.5-24.99] 22.56 (12/01/20 11:11 AM) Blood Pressure [90-138/55-84 mm Hg] 124/ 70mm Hg (12/01/20 11:11 AM) Temperature [96.8-100.4 DegF] 97.2 DegF (12/01/20 11:11 AM) Blood pressure sites Arm, left (12/01/20 11:11 AM) Social History Social History Type Response Smoking Status Never smoker; Tobacc o user in household: No entered on: 02/02/14 Sex Female
--- OUTSIDE RECORDS SUMMARY | 2023-07-07 13:45 | XMS_ITS | Continuity of Care Document ---
Author Name Unknown Organization [facility] Address [address] [place] [address]- Care Team Providers Care Refrigeration Mechanic Helper Name Role Phone Breezy ARMSTRONG, [facility] Primary Care Physician Encounter [facility] Date(s): 08/31/20 - 09/30/20 [facility] [address] [place], [place] [address] Attending Physician: Kaleb Awad Admitting [...] Give n Patient Refuses 1Result Comment: [facility] [id number] 2Admin Note: VIS GIVEN 03/14/2011 3Admin Note: [...] 11 Refills, Maintenance, 06/29/20 14:01:00 EST, Capsule, [facility], nepali labels, 147.2, cm, 06/29/20 13:48:00 EST, Height, 57, kg, 11... Start Date: 06/29/20 Status: Ordered donepezil 10 mg oral tablet 10 mg, 1, tablet, By Mouth, Daily at bedtime, # 30 tablet, Refills 11, Tot. Refills 11, Maintenance, 07/25/19 11:23:25 EST, Route to Pharmacy Electronically, [id number], [facility] [place], 145, cm, 07/25/19... Start Date: 07/25/19 Status: Ordered lisinopril 20 mg oral tablet See Instructions, TAKE 1 TABLET BY MOUTH AT BEDTIME, # 30 tablet, Refills 11, Tot. Refills 11, SoftStop, 04/21/20 16:53:00 EDT, Instructions Replace Required Details, Route to Pharmacy Electronically, [facility], 147.2, cm, ... Start Date: 04/21/20 [...] Refills, Maintenance, 06/29/20 14:01:00 EST, EC Tablet, [facility], 147.2, cm, 06/29/20 13:48:00 EST, Height, [...] capsule, 11 Refills, Maintenance, 06/29/20 14:01:00 EST, [facility], nepali labels, 147.2, cm, 06/29/20 13:48:00 EST, Height,... Start Date: 06/29/20 Status: Ordered Vitamin D3 2000 intl units oral capsule = 2,000 International_Units, By Mouth, Daily, # 100 capsule, 1 Refills, Maintenance, 06/30/20 11:25:00 EST, [facility], 147.2, cm, 06/29/20 13:48:00 EST, Height, [...] lesion(Confirmed) Active Thyroid nodule, per 03-25-2014 scanned [place] problem lsit(Confirmed) Active Vascular calcification(Confirmed) 6 Active Vitamin D deficiency(Confirmed) Active 1moderate on x-ray 2017 2clinically, it would be a balance between followup for possibel surgeyr, versus risk of surgery given her many comobridities including dementia.... 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 Bilateral S1 involvement 6mild on CT Social History Social History Type Response Smoking Status Never smoker; Tobacc o user in household: No entered on: 02/02/14 Sex Female
--- OUTSIDE RECORDS SUMMARY | 2023-07-07 13:45 | XMS_ITS | Continuity of Care Document ---
Author Name Unknown Organization [facility] Address [address] [place] [address]- Care Team Providers Care Financial Economist Name Role Phone Breezy ARMSTRONG, Gianluca Primary Care Physician Encounter [facility] Date(s): 10/02/19 - 10/12/19 [facility] [address] [place] [address]- [facility] Attending Physician: Kaleb Awad Admitting [...] Refills, Maintenance, 10/02/19 9:23:00 EST, Capsule, [facility], 147.2, cm, 10/02/19 8:46:00 EST, Height, 58.3, kg, 03/31/19 18:41:0... Start Date: 10/02/19 Status: Ordered donepezil 10 mg oral tablet 10 mg, 1, tablet, By Mouth, Daily at bedtime, # 30 tablet, Refills 11, Tot. Refills 11, Maintenance, 07/25/19 11:23:25 EST, Route to Pharmacy Electronically, [id number], [facility], 145, cm, 07/25/19... Start Date: 07/25/19 Status: Ordered lisinopril 20 mg oral tablet See Instructions, # 30 tablet, Refills 12 Tot. Refills 12, TAKE 1 TABLET BY MOUTH AT BEDTIME, [facility] Start Date: 04/16/19 Status: Ordered [...] Maintenance, 09/04/19 14:44:00 EST, EC Tablet, [facility], 145, cm, 07/25/19 10:51:00 EST, [...] capsule, 0 Refills, Maintenance, 09/22/19 10:50:00 EST, [facility] [place], 147.2, cm, 09/22/19 [...] lesion(Confirmed) Active Thyroid nodule, per 03-25-2014 scanned [place] problem lsit(Confirmed) Active Vascular calcification(Confirmed) 6 Active Vitamin D deficiency(Confirmed) Active 1moderate on x-ray 2017 2clinically, it would be a balance between followup for possibel surgeyr, versus risk of surgery given her many comobridities including dementia.... 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 Bilateral S1 involvement 6mild on CT Social History Social History Type Response Smoking Status Never smoker; Tobacc o user in household: No entered on: 02/02/14 Sex Female
--- OUTSIDE RECORDS SUMMARY | 2023-07-07 13:45 | XMS_ITS | Continuity of Care Document ---
Author Name Unknown Organization [facility] Address [address] [place] [address]- Care Team Providers Care Salt Lifter Name Role Phone Dipak Tijerina MD Primary Care Physician [place] [facility] [place]23[place] 03/24/20 [facility] [address] [place] [address]- [facility] Attending Physician: Dipak Tijerina MD Allergies, Adverse [...] 1 Refills, Maintenance, 01/30/20 12:27:00 EDT, Capsule, [facility], 147.2, cm, 208:50:00 EDT, Height, 58.5, kg, 10/14/19 0:03:00 EST... Start Date: 01/30/20 Status: Ordered donepezil 10 mg oral tablet 10 mg, 1, tablet, By Mouth, Daily at bedtime, # 30 tablet, Refills 11, Tot. Refills 11, Maintenance, 07/25/19 11:23:25 EST, Route to Pharmacy Electronically, [id number], [facility], 145, cm, 07/25/19... Start Date: 07/25/19 Status: Ordered lisinopril 20 mg oral tablet See Instructions, # 30 tablet, Refills 12 Tot. Refills 12, TAKE 1 TABLET BY MOUTH AT BEDTIME, [facility] Start Date: 04/16/19 Status: [...] Refills, Maintenance, 12/15/19 13:37:00 EDT, EC Tablet, [facility], 147.2, cm, 10/27/19 8:39:00 EDT, [...] capsule, 1 Refills, Maintenance, 10/15/19 11:41:00 EST, [facility] [place], 147.2, cm, 10/02/19 [...] lesion(Confirmed) Active Thyroid nodule, per 03-25-2014 scanned [place] problem lsit(Confirmed) Active Vascular calcification(Confirmed) 6 Active Vitamin D deficiency(Confirmed) Active 1moderate on x-ray 2017 2clinically, it would be a balance between followup for possibel surgeyr, versus risk of surgery given her many comobridities including dementia.... 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 Bilateral S1 involvement 6mild on CT Social History Social History Type Response Smoking Status Never smoker; Tobacc o user in household: No entered on: 02/02/14 Sex Female
[2023-07-07 13:53] LABS: Alanine Aminotransferase 11 U/L (0-31); Alkaline Phosphatase 51 U/L (39-117); Anion Gap 11 (12-20); Aspartate Amino Transferase 22 U/L (5-31); Bilirubin Direct 0.2 mg/dL (0.0-0.5); Bilirubin Total 0.6 mg/dL (0.0-1.0); Blood Urea Nitrogen 18 mg/dL (9-16); Calcium 9.3 mg/dL (8.4-10.2); Carbon Dioxide 31 mmol/L (22-29); Chloride 103 mmol/L (96-108); Creatinine Clr Calc Pharmacy 29.1; Estimated Glomerular Filt Rate 53; Glucose Random 100 mg/dL (60-115); Lipase 25 U/L (8-78); Magnesium 1.8 mg/dL (1.6-2.6); Potassium 3.6 mmol/L (3.3-5.1); Sodium 141 mmol/L (135-145); Total Protein 7.3 g/dL (6.5-8.0)
[2023-07-07] MEDS: 0.9 % Sodium Chloride 500 ML IV (14:13)
[2023-07-07] MEDS: ondansetron HCL 4 MG/2 ML VIAL IVPUSH (14:20)
[2023-07-07] MEDS: Morphine Sulfate 2 MG/ML CARTRIDGE IVPUSH (14:20)
[2023-07-07 15:08] LABS: Appearance Urine Clear; Color Urine Yellow; Glucose Urine UA Negative (Negative); Leukocyte Esterase Urine Trace (Negative); Nitrite Urine Negative (Negative); PH 6.5 (5.0-9.0); Specific Gravity - Urine 1.015 (1.005-1.025); UMIC TRIGGER UACC YES; Urine Blood Negative (Negative); Urine Ketones Negative (Negative); Urine Protein Negative (Neg-Trace)
[2023-07-07 15:10] LABS: Bacteria Urine None Seen (None Seen); Hyaline Casts Urine 0-2 /LPF (0-2); RBC Urine 0-2 /HPF (0-2); Squamous Epithelial Cell Urine 0-2 /HPF (0-2); WBC Urine 0-5 /HPF (0-5)
[2023-07-07] MEDS: iohexoL 350 MG/ML 100 ML INFUS..BTL IV (15:13)
[2023-07-07 17:20] VITALS: BP 129/75; PULSE 66; RESP 19; TEMP 37.3
[2023-07-07] MEDS: Amoxicillin/Potassium Clav 875 MG TABLET PO (17:23)
--- NOTE | 2023-07-07 17:33 | PC.NURSE ---
late note, pt a&ox4, vss, reporting 10/10 r-sided abd pain, improved to 7/10 w pain medication. 20G IV placed left forearm, medicated per OCT. pt 1 assist for balance to bathroom, urine sample obtained. no new orders at this time.
== END 2023-07-07 17:34 | disposition home or self-care (01) ==
PROVIDERS: Physician Assistant Medical; Emergency Provider Student in an Organized Health Care Education/Training Program; PCP General Practice
DX: K57.32 Diverticulitis of large intestine without perforation or abscess without bleeding (principal); E11.9 Type 2 diabetes mellitus without complications; I10 Essential (primary) hypertension
CPT/HCPCS: 36415; 74177; 80048; 80076; 81001; 83690; 83735; 85025; 96361; 96374; 96375; 99284; J2270; J2405; Q9967

== ENCOUNTER 2023-08-08 08:54 | Outpatient (AMB) | payer OTHER, SELFPAY ==
--- NOTE | 2023-08-08 08:58 | A.OFFVIS_ITS ---
Intake Vital Signs 3 08/08/23 09:02 Height 4 ft 9.2 in Weight 113 lb 12.136 oz BMI 24.4 BP 119/69 Blood Pressure Location Rt brachial Position Sitting Pulse 69 Intake Visit Reasons: Right side Abdominal pain Intake Note: Patient presents to in office visit today as a new patient for right sided abdominal pain. CC: Patient c/o right sided abdominal pain s/p perforation of colon in 2019. She also states her saliva tastes salty and she sometimes gets pain from throat. Accompanied by: Son Allergies acetaminophen [Percocet] Allergy (Mild, Verified 08/08/23 09:13) denies oxycodone [Percocet] Allergy (Mild, Verified 08/08/23 09:13) denies HPI Right side Abdominal pain 2 HPI0 Details 82-year-old female here for initial eval uation of right-sided abdominal pain. She is referred by Marisabel Delaney of [facility]. 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 Depression GERD High cholesterol Osteoporosis Thyroid nodule Dementia -severe late onset Alzheimer's Thoracic compression fracture Hearing loss Poly radiculopathy GERD * SURGICAL HISTORY Cholecystectomy Hysterectomy Varicose vein surgery Colonoscopy-2014 Ear surgery Eye surgery * ALLERGIES Tylenol Oxycodone * LABS SUPPLIED BY PCP: 05/17/2023 UNREMARKABLE CBC, NORMAL TSH, UNREMARKABLE RENAL AND HEPATIC PANELS, CT ABDOMEN AND PELVIS 07/07/23 FINDINGS: LOWER THORAX: Mild interstitial peripheral changes at lung bases, peripheral honeycombing suggesting interstitial pneumonitis, interstitial pulmonary fibrosis. Heart is enlarged. HEPATOBILIARY: No focal hepatic lesions. No biliary ductal dilatation. GALLBLADDER: Gallbladder has been removed, dilated common bile duct 8 mm, fullness of the intrahepatic biliary system likely physiologic postcholecystectomy. SPLEEN: Spleen is normal in size. PANCREAS: No focal mass or ductal dilatation. STOMACH AND GASTROINTESTINAL TRACT: Stomach is grossly unremarkable. Heavy sigmoid diverticulosis, mild pericolic fat stranding suggesting probably mild acute diverticulitis. No evidence of abscess. No fistula or other complications. No CT evidence of appendicitis. ADRENALS: No adrenal nodules. KIDNEYS/URETERS: No hydronephrosis, stones or solid mass lesions. URINARY BLADDER: Partially decompressed. PELVIC VISCERA: Unremarkable PERITONEUM: No free air or fluid. LYMPH NODES: No lymphadenopathy. VASCULAR:There are vascular calcifications, no aneurysm. BONES, ABDOMINAL WALL AND SOFT TISSUES: Comminuted old partially healed right pubic rami fractures. 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 Compression fracture of T12 unchanged. CT/CT abdomen pelvis w IV con IMPRESSION: * Heavy sigmoid diverticulosis, mild pericolic fat stranding suggesting MILD ACUTE DIVERTICULITIS. No evidence of abscess, no fistula or other complications. * Status post cholecystectomy, dilated common bile duct 8 mm, fullness of the intrahepatic biliary system likely physiologic postcholecystectomy. * Old partially healed right pubic rami fractures. Unchanged compression fracture of T12. 2014 COLONOSCOPY-MARTINES PROCEDURE IN DETAIL: Digital rectal exam revealed decreased but adequate sphincter tone. Video colonoscope was introduced without difficulty. It was navigated into the rectosigmoid sigmoid. There were multiple diverticula appreciated in the sigmoid descending colon. Prep was excellent. Scope was easily advanced through the transverse ascending colon down into the cecal cap. Appendiceal orifice was seen. The ileocecal valve was well seen. On the valve, there was a superficial 0.5 cm erosive lesion with no associated mass or bleeding. Random right and left colon biopsies were obtained to assess for evidence of ischemia versus microscopic colitis versus prep artifact. On withdrawal, no additional lesions were seen. Anorectal verge was clear. ? GENERAL IMPRESSION: Diverticulosis, focal erosive change on the ileocecal valve. ? PLAN: The patient will be seen back in my office in approximately 4 weeks to review histology. Repeat asymptomatic screening would be 10 years : 06/17/15 Rec eived: 06/17/15 0 Submitted by: PHILIP CHAVIS,JUANITA FIGUEROA MD MATERIAL RECEIVED: A. RANDOM RIGHT CO AYSE BX'S B. RANDOM LEFT COL ON BX'S 0 DIAGNOSIS A. COLONIC MUCOSA WITH NO DIAGNOSTI C ABNORMALITY. 0 B. COLONIC MUCOSA WITH NO DIAGNOSTI C ABNORMALITY. TODAY'S VISIT [place] #Gavin The record shows she was treated with amoxicillin after the CT. She is here with her son who is NOT the main corn press operator and does not contribute much to the history. She lives with her younger son. She is complaining of saltiness in my mouth and throat pain when I swallow. However, she says her throat hurts even when she is not swallowing. This is described as a burning pain. She has frequent nausea. She is always spitting her saliva. She does better swallowing liquids like malt (a sode) not much coffee and not too much water. She also says that since they did an operation from here to here (she points to her midline epi area to the lower abd) I have had pain in the RUQ. Her son seems to think that she had a perforation in her colon after a colonoscopy. This was at [facility] many years ago. She can not provide a clear history of exacerbating and relieving factors of the pain except that she has to sleep splinting her right side with a pillow. The pain is there all day. At times it is worse with eating - the greater the qty eaten the worse the pain. This interferes with her eating as she fears the pain. Despite this bad experience, she and her family feel they would be willing to undergo endoscopic procedures if it will resolve the problem. Her BM's are mixed between formed and some diarrhea. Her wt has decreased from 125 to 113 but her son feels this is multifactorial as she also has trouble with her dentition - she has lost her bottom dentures and is not eligible for another set. At point given her age and lack of history of polyps I do not think a colonoscopy would be worthwhile risk versus benefit diagnosing her pain. However, since she is bothered more by the swallowing and this is affecting her nutrition I think an upper endoscopy may be prudent. She is status post cholecystectomy and this may be contributing to cramping and pain on the right of the abdomen and it is likely that she has bile reflux on top age related reflux. Help with the swallowing I am going to change her omeprazole to pantoprazole 40 mg twice a day (although continuing high-dose PPI may not be in her best interest giving osteoporosis and a recent pelvic fracture) and also put her on a dose of liquid Carafate. A barium swallow would probably be prudent. I educate them that she probably needs to drink more fluids as she does not seem to drink much, and likely this is concentrating the salty this of her saliva causing the salty taste in her mouth. On physical exam I noticed that she has a remarkably asymmetry of her thyroid right greater than left so I think an ultrasound of the thyroid would be appropriate to see if this is impacting her swallowing. I also note that she has fine crackles throughout her lungs with no diagnosis attached; however there is a CT scan on record showing she has chronic interstitial lung disease. Her son says she never smoked but her was a heavy smoker so this could be relative secondhand smoking. She does not complain of any shortness of breath and she is not treated. I have asked her son to call us with the name of her armored machine operator as we may wish to get clearance from him given her age and her history of cardiomyopathy heart failure. At this point I will see them back in 4 weeks to evaluate her response the medications. [facility] Medical History (Updated 08/08/23 @ 10:48 by ASHLEY Akhtar) Thoracic compression fracture Pubic bone fracture Closed fracture of iliac wing Closed rib fracture GERD (gastroesophageal reflux disease) HTN (hypertension) Dementia Diabetes Surgical History H/O colonoscopy History of varicose vein ligation and stripping History of hysterectomy History of cholecystectomy Family History Sister Epilepsy Social History Household Members: None Housing: Apartment Do you presently have visiting nurse or other home services: No Patient Tobacco Use Status: Never used Tobacco Advance Directives Date on File: 02/06/22 service: No Current occupational status: disabled Review of Systems Const Denies fatigue, Denies fever(s), Denies night sweats, Reports poor appetite and Reports weight loss Eyes Details: glasses Reports requires corrective lenses ENT Details: Poor dentition, lost her lower dentures Denies dental pain, Reports dysphagia, Reports hearing loss, Denies mouth pain, Reports odynophagia, Reports tinnitus, Denies throat swelling and Denies tongue swelling Card Reports no additional complaints Resp Reports no additional complaints GI Reports abdominal pain, Denies melena, Denies bloating, Denies hematochezia, Reports constipation, Denies GI cramping, Reports dysphagia, Denies excessive flatus, Denies early satiety, Reports heartburn, Reports diarrhea, Reports nausea, Reports odynophagia, Denies vomiting and Denies hematemesis Skin/Breast Denies pruritus, Denies lesions, Denies rash and Denies jaundice Neuro Denies Abnormal speech present, Reports confusion and Reports memory loss Psych Reports abnormal sleep pattern, Reports confusion and Reports memory loss Endo Denies fatigue Aller/Immun Denies throat swelling and Denies tongue swelling Physical Exam Vital Signs: Last Vital Signs Pulse 69 08/08/23 09:02 BP 119/69 08/08/23 09:02 BMI result Body Mass Index 24.4 Const General: cooperative, no acute distress, well developed, confusion and well groomed Nutritional Appearance: average body habitus and well nourished Orientation/consciousness: oriented to person, oriented to place, oriented to time and confusion Limitations: language barrier and other limitations HEENT Head: Yes normocephalic and Yes atraumatic Eyes General: appearance normal, both eyes and all related structures Pupils: Equal, round and reactive pupils present Neck Neck: Yes normal visual inspection Thyroid: asymmetrical (? ;nodule or swelling right side) Resp Effort & Inspection: normal respiratory effort and able to speak in complete sentences Auscultation: crackles bilateral throughout and diffuse Cardio Rate: regular rate Rhythm: regular rhythm Heart sounds: Normal, physiologic split S2 sound present Peripheral pulses: radial pulses present and posterior tibial pulses present GI Inspection: No distended and No Abdominal panniculus present Palpation (GI): Soft to palpation, Tenderness to palpation present (GI) in the RLQ, in the RUQ and periumbilically, no guarding, not rigid and No hepatosplenomegaly present Percussion: Yes normal to percussion Auscultation: normal bowel sounds Rectal Exam - Female: deferred Abdomen image: 2 1. Surgical scar Skin General skin exam: no rashes or lesions noted, turgor normal, skin not dry, no jaundice, No spider nevi and no striae Rashes: no rashes Nails: normal Neuro General: oriented to person, oriented to place, oriented to time and confusion Cranial nerves: Yes Equal, round and reactive pupils present Speech: No Abnormal speech present Extrem General: Yes normal to inspection, No clubbing, No cyanosis and No edema Psych Appearance: grossly normal and well kempt Mental Status: other Speech and movement: Normal speech and movement present Affect: normal affect Attitude: cooperative Thought process: not confabulating and Impoverished thought process present Thought content: Normal thought content present Insight: Poor insight present (Psych) Judgement: Poor judgement present (Psych) Assessment & Plan Assessment & Plan (1) Odynophagia: Code(s): R13.10 - Dysphagia, unspecified (2) Dysphagia: Code(s): R13.10 - Dysphagia, unspecified (3) GERD (gastroesophageal reflux disease): Code(s): K21.9 - Gastro-esophageal reflux disease without esophagitis (4) Chronic interstitial lung disease: Code(s): J84.9 - Interstitial pulmonary disease, unspecified (5) Asymmetrical thyroid: Code(s): E07.9 - Disorder of thyroid, unspecified (6) Right sided abdominal pain: Code(s): R10.9 - Unspecified abdominal pain Plan Mos[place] #Moira and Nabeel The record shows she was treated with amoxicillin after the CT. She is here with her son who is NOT the main corn press operator and does not contribute much to the history. She lives with her younger son. She is complaining of saltiness in my mouth and throat pain when I swallow. However, she says her throat hurts even when she is not swallowing. This is described as a burning pain. She has frequent nausea. She is always spitting her saliva. She does better swallowing liquids like malt (a soda) not much coffee and not too much water. She also says that since they did an operation from here to here (she points to her midline epi area to the lower abd) I have had pain in the RUQ. Her son seems to think that she had a perforation in her colon after a colonoscopy. This was at [facility] many years ago. She can not provide a clear history of exacerbating and relieving factors of the pain except that she has to sleep splinting her right side with a pillow. The pain is there all day. At times it is worse with eating - the greater the qty eaten the worse the pain. This interferes with her eating as she fears the pain. Despite this bad experience, she and her family feel they would be willing to undergo endoscopic procedures if it will resolve the problem. Her BM's are mixed between formed and some diarrhea. Her wt has decreased from 125 to 113 but her son feels this is multifactorial as she also has trouble with her dentition - she has lost her bottom dentures and is not eligible for another set. At point given her age and lack of history of polyps I do not think a colonoscopy would be worthwhile risk versus benefit diagnosing her pain. However, since she is bothered more by the swallowing and this is affecting her nutrition I think an upper endoscopy may be prudent. She is status post cholecystectomy and this may be contributing to cramping and pain on the right of the abdomen and it is likely that she has bile reflux on top age related reflux. Help with the swallowing I am going to change her omeprazole to pantoprazole 40 mg twice a day (although continuing high-dose PPI may not be in her best interest giving osteoporosis and a recent pelvic fracture) and also put her on a dose of liquid Carafate. A barium swallow would probably be prudent. I educate them that she probably needs to drink more fluids as she does not seem to drink much, and likely this is concentrating the salty this of her saliva causing the salty taste in her mouth. On physical exam I noticed that she has a remarkably asymmetry of her thyroid right greater than left so I think an ultrasound of the thyroid would be appropriate to see if this is impacting her swallowing. I also note that she has fine crackles throughout her lungs with no diagnosis attached; however there is a CT scan on record showing she has chronic interstitial lung disease. Her son says she never smoked but her was a heavy smoker so this could be relative secondhand smoking. She does not complain of any shortness of breath and she is not treated. I have asked her son to call us with the name of her armored machine operator as we may wish to get clearance from him given her age and her history of cardiomyopathy heart failure. At this point I will see them back in 4 weeks to evaluate her response the medications. Orders: Orders 2 EGD with Bunch - GI Use Only Today R13.10 - Dysphagia, unspecified FL barium swallow Today R13.10 - Dysphagia, unspecified US thyroid Today E07.9 - Disorder of thyroid, unspecified Medications: New 2 pantoprazole (Protonix) 40 mg PO BID 30 days 60 tabs 3RF K21.9 - Gastro- esophageal reflux disease without esophagitis, R13.10 - Dysphagia, unspecified sucralfate (Carafate) 20 mL PO QNOON 1,000 mL 3RF R13.10 - Dysphagia, unspecified Patient Instructions: Janice Yani Estoy cambiando algunos de koki medicamentos: por favor DEJE de kristi omeprazol y le estoy recetando lo siguiente: 1. Pantoprazol 40 mg dos veces al d?a y 2. Carafate (sucralfato) l?quido 2 tazas al mediod?a todos los d?as. He ordenado 2 pruebas, un trago de bario y jessica endoscopia digestiva superior. Mi personal llamar? para programar estos procedimientos. Quiero verla en 4 semanas para ana luisa c?mo le va con los medicamentos. Coding Level of Care Code New Pt Level 3 (62722) Diagnoses Odynophagia R13.10 Dysphagia R13.10 GERD (gastroesophageal reflux disease) K21.9 Chronic interstitial lung disease J84.9 Asymmetrical thyroid E07.9 Right sided abdominal pain R10.9
[2023-08-08 09:02] VITALS: BP 119/69; PULSE 69; BMI 24.4
== END 2023-08-08 10:12 | disposition home or self-care (01) ==
PROVIDERS: PCP General Practice; Visit Provider Nurse Practitioner
DX: R13.10 Dysphagia, unspecified (principal); K21.9 Gastro-esophageal reflux disease without esophagitis; J84.9 Interstitial pulmonary disease, unspecified; E07.9 Disorder of thyroid, unspecified; R10.9 Unspecified abdominal pain
CPT/HCPCS: 99203

== ENCOUNTER → 2023-08-08 08:54 | Outpatient (BNVA) | payer OTHER, SELFPAY | PROVIDERS: PCP General Practice; Visit Provider Nurse Practitioner | DX: R13.10 Dysphagia, unspecified (principal); R10.9 Unspecified abdominal pain; K21.9 Gastro-esophageal reflux disease without esophagitis; J84.9 Interstitial pulmonary disease, unspecified; E07.9 Disorder of thyroid, unspecified | CPT/HCPCS: 99202 ==

== ENCOUNTER 2023-10-12 11:27 | Emergency (ER) | payer OTHER, SELFPAY ==
--- NOTE | ~2023-10-12 | XR_ITS ---
EXAMINATION: XR CHEST CLINICAL INFORMATION: Question bilateral pleural effusions and CT COMPARISON: Chest CT December 2021 and chest x-ray October 2016 TECHNIQUE: Frontal view of the chest was obtained. FINDINGS: The cardiac silhouette is enlarged but stable. Increased interstitial markings at the lung bases questionable lung disease. There is slight blunting at the bilateral costophrenic angles questionable for small bilateral pleural effusions. No pneumothorax. Degenerative changes of the spine and right shoulder. XR/XR chest 1V IMPRESSION: Stable enlargement of the cardiac silhouette. Question small bilateral pleural effusions and interstitial lung disease.
--- NOTE | ~2023-10-12 | CT_ITS ---
EXAMINATION: CT HEAD WITHOUT CONTRAST CLINICAL INFORMATION: Headache. COMPARISON: CT head 01/13/2022. TECHNIQUE: Contiguous axial imaging was performed from the skull base to vertex without intravenous administration of contrast. This CT examination was performed using dose optimization techniques as appropriate, variously including the following: *Automated exposure control *Adjustment of mA and/or kV according to patient size (this includes techniques or standardized protocols for targeted exams where dose is matched to indication/reason for exam; i.e. extremities or head) *Use of iterative reconstruction technique DLP: 1105 mGy-cm FINDINGS: There is no acute intracranial hemorrhage or abnormal extra-axial collection. No intracranial mass effect or midline shift. Lateral and third ventricles are normal. No hydrocephalus. [place]-white matter differentiation is preserved and there is no evidence of acute territorial infarct. The calvarium and skull base are intact. Mastoid air cells and middle ear cavities are well aerated. No active paranasal sinus disease. CT/CT head/brain wo IV con IMPRESSION: Unremarkable CT scan of the head. No evidence of acute territorial infarct or hemorrhage.
--- NOTE | ~2023-10-12 | CT_ITS ---
EXAMINATION: CT ABDOMEN AND PELVIS WITH CONTRAST CLINICAL INFORMATION: Abdominal pain. COMPARISON: 07/07/2023 TECHNIQUE: Multidetector volumetric images were obtained from the superior aspect of the liver through the pubic symphysis following administration 85 mL of Omnipaque 350 intravenous contrast. Sagittal and coronal reformatted images were obtained on the technologist's workstation. Oral contrast: No This CT examination was performed using dose optimization techniques as appropriate, variously including the following: *Automated exposure control *Adjustment of mA and/or kV according to patient size (this includes techniques or standardized protocols for targeted exams where dose is matched to indication/reason for exam; i.e. extremities or head) *Use of iterative reconstruction technique DLP: 471 mGy-cm FINDINGS: Motion artifact technically degrades image. LUNG BASES: Chronic interstitial lung disease. Small bilateral pleural effusions. Cardiomegaly. Trace pericardial effusion. LIVER, GALLBLADDER, AND BILIARY TREE: The liver is decreased in attenuation. No focal hepatic lesion or biliary ductal dilatation is present. The gallbladder is surgically absent. PANCREAS: Unremarkable. SPLEEN: Not enlarged. ADRENAL GLANDS: No adrenal mass. KIDNEYS AND URETERS: Cortical scarring lower pole left kidney. The kidneys enhance symmetrically. No hydronephrosis or perinephric fluid collection. BLADDER: Unremarkable. GASTROINTESTINAL TRACT: Possible gastric wall edema. Appendix is within normal limits. Extensive colonic diverticulosis. No small bowel obstruction. ABDOMINAL WALL: No significant hernia is appreciated. LYMPH NODES: No bulky lymphadenopathy. VASCULAR: No abdominal aortic aneurysm. PELVIC VISCERA: Small free fluid in the pelvis. OSSEOUS STRUCTURES: Healed fractures of the right superior and inferior pubic rami. Moderate compression fracture of T12. CT/CT abdomen pelvis w IV con IMPRESSION: Gastric wall edema is suspected. Advise correlation with direct visualization. Hepatic steatosis. Small bilateral pleural effusions.
--- NOTE | 2023-10-12 11:41 | ECG_ITS ---
Test Reason : chest pain Blood Pressure : / mmHG Vent. Rate : 053 BPM Atrial Rate : 053 BPM P-R Int : 158 ms QRS Dur : 094 ms QT Int : 470 ms P-R-T Axes : 013 -38 153 degrees QTc Int : 441 ms Sinus bradycardia Left axis deviation Left ventricular hypertrophy with repolarization abnormality ( R in aVL , Luan product , Romhilt-Nieto ) Abnormal ECG When compared with ECG of 13-JAN-2022 10:39, Nonspecific T wave abnormality has replaced inverted T waves in Inferior leads Referred By: Generic ED Physician Electronically Signed By:SHIVAM BARGER MD
[2023-10-12 12:05] VITALS: BP 139/67; PULSE 57; RESP 18; TEMP 36.8; O2SAT 97; BMI 23.8
[2023-10-12 13:35] LABS: MANUAL DIFF FLAG NO
[2023-10-12 13:42] LABS: Basophils Percent Auto 0.7 % (0-2); Eosinophils Absolute Auto 0.1 X10*3/uL (0.0-0.4); Eosinophils Percent Auto 1.4 % (0-4); Hematocrit 34.1 % (37.0-47.0); Hemoglobin 11.1 g/dl (12.0-16.0); Imm Gran Abs Auto 0.01 X10*3/uL (0.00-0.03); Imm Gran Pct Auto 0.2 % (0.0-0.4); Lymphocytes Absolute Auto 1.7 X10*3/uL (1.2-4.9); Lymphocytes Percent Auto 29.8 % (20-40); Mean Corpuscular HGB Conc 32.6 g/dl (31.0-35.0); Mean Corpuscular Hemoglobin 30.6 pg (27.0-33.0); Mean Corpuscular Volume 93.9 fL (80.0-98.0); Mean Platelet Volume 10.1 fL (9.4-12.3); Monocytes Absolute Auto 0.4 X10*3/uL (0.1-1.2); Monocytes Percent Auto 7.3 % (2-11); Neutrophils Absolute Auto 3.4 x10*3/uL (2.0-8.3); Neutrophils Percent Auto 60.6 % (45-73); Platelet Count 142 X10*3/uL (160-400); Red Blood Count 3.63 X10*6/uL (4.20-5.50); Red Cell Distribution Width 12.1 % (11.0-16.0); White Blood Count 5.6 X10*3/uL (4.8-10.8)
[2023-10-12 13:52] LABS: Alanine Aminotransferase 9 U/L (0-31); Albumin Level 3.6 g/dL (3.5-5.0); Alkaline Phosphatase 49 U/L (39-117); Anion Gap 11 (12-20); Aspartate Amino Transferase 18 U/L (5-31); Bilirubin Total 0.8 mg/dL (0.0-1.0); Blood Urea Nitrogen 15 mg/dL (9-16); Carbon Dioxide 29 mmol/L (22-29); Chloride 104 mmol/L (96-108); Estimated Glomerular Filt Rate > 60; Glucose Random 93 mg/dL (60-115); Sodium 140 mmol/L (135-145); Total Protein 6.4 g/dL (6.5-8.0)
--- NOTE | 2023-10-12 14:15 | ED_ITS ---
HPI - General Adult General Chief complaint: Abdominal Pain Stated complaint: CHEST PAIN HEADACHE SINCE LAST NIGHT Time Seen by Provider: 10/12/23 14:13 History of Present Illness HPI narrative: 82 y/o F patient; PMH ILD, GERD, Alzheimer's dementia, HLD, CKD, ascending aorta dilation, T2DM, HTN, diverticulosis, hx cholecystectomy, chronic abdominal pain; presents from home with report of acute on chronic abdominal pain. The patient herself is a poor history. She notes generalized headache and abdominal pain, but cannot provide further history secondary to her dementia. Further history obtained from patient's son Neil who is living with her. He denies any recent falls or trauma. He states for the last two days she has been complaining of a headache. She also has been complaining of chest and abdominal pain - he does note many of these symptoms are chronic. Related Data Home Medications Medication Instructions Recorded Confirmed cholecalciferol (vitamin D3) 50 1 cap PO QAM 01/13/22 01/13/22 mcg (2,000 unit) capsule donepezil 10 mg tablet 1 tab PO BEDTIME 01/13/22 01/13/22 mirtazapine 45 mg tablet 1 tab PO BEDTIME 01/13/22 01/13/22 sertraline 100 mg tablet 2 tab PO QAM 01/13/22 01/13/22 trazodone 50 mg tablet 0.5 tab PO BEDTIME PRN Insomnia 01/13/22 01/13/22 Previous Rx's Medication Instructions Recorded ondansetron 4 mg disintegrating 4 mg PO Q8H PRN nausea and 07/07/23 tablet vomiting #20 tabs pantoprazole 40 mg tablet,delayed 40 mg PO BID 30 days #60 tabs 08/08/23 release (Protonix) sucralfate 100 mg/mL oral 20 ml PO QNOON #1,000 mL 08/08/23 suspension (Carafate) Allergies Allergy/AdvReac Type Severity Reaction Status Date / Time acetaminophen [Percocet] Allergy Mild denies Verified 08/08/23 09:13 oxycodone [Percocet] Allergy Mild denies Verified 08/08/23 09:13 Review of Systems 2 Review of Systems: Unable to obtain due to Alzheimer's dementia Yes Other Neurologic: Denies Sensory deficit (Neuro) PMFSH Past Medical History Attestation statement: The following information was validated with the patient. Source: old records reviewed Medical History Thoracic compression fracture Pubic bone fracture Closed fracture of iliac wing Closed rib fracture GERD (gastroesophageal reflux disease) HTN (hypertension) Dementia Diabetes Surgical History H/O colonoscopy History of varicose vein ligation and stripping History of hysterectomy History of cholecystectomy Family History Family History Sister Epilepsy Social History Social History Household Members: None Housing: Apartment Do you presently have visiting nurse or other home services: No Patient Tobacco Use Status: Never used Tobacco Advance Directives: Yes Advance Directives on File: Yes Advance Directives Date on File: 02/06/22 service: No Current occupational status: disabled Physical Exam ED Vital Signs: Vital Signs - 24 hr 10/12/23 12:05 10/12/23 16:31 Temperature 98.3 F 98.3 F Pulse Rate 57 56 Respiratory Rate 18 16 Blood Pressure 139/67 151/68 H Pulse Oximetry 97 95 Oxygen Delivery Method Room Air Room Air BMI result Body Mass Index 23.8 Patient is afebrile and hemodynamically stable Const Other: AOx1 to self General: comfortable HENMT Head: Yes normal to inspection and Yes atraumatic Eyes General: appearance normal, both eyes and all related structures Pupils: Equal, round and reactive pupils present EOM: EOMs intact bilaterally Neck Neck: Yes normal visual inspection, Yes full ROM, Yes supple and No tender Chest Chest palpation & inspection: normal inspection of the chest and normal palpation of entire chest wall Resp Effort & Inspection: normal respiratory effort, able to speak in complete sentences and no respiratory distress Auscultation: clear to auscultation bilaterally Cardio Rate: regular rate Rhythm: regular rhythm Peripheral pulses: Peripheral pulses 2+ throughout GI Other: LLQ abdominal tenderness Inspection: Yes normal to inspection, No Abdominal wall edema and No distended Palpation (GI): Soft to palpation, not firm, no guarding and not rigid Auscultation: normal bowel sounds General: Yes no CVA tenderness Back/Spine/Pelvis Back: no CVA tenderness Neuro General: moves all extremities, no focal motor deficits and CN's II-XI intact bilaterally Cranial nerves: Yes Equal, round and reactive pupils present Sensory Exam: No Sensory deficit (Neuro) Course Course Course Narrative: Patient is afebrile and hemodynamically stable. Supplemental history obtained from patient's son due to patient's underlying Alzheimer's dementia. Will obtain CBC, CMP, lipase, troponin. Will obtain COVID/Flu/RSV. Pertinent issues include: 1) Headache: Patient's presentation is complicated by Alzheimer's dementia. Her exam is atraumatic. She is not on blood thinners. However due to two days of consistent reported headache per patient's son - will obtain CT Head. 2) Chest pain/Abdominal pain - possibly chronic in origin -CBC and CMP unremarkable -Patient's last CT Abdomen/Pelvis in 2022 did demonstrate acute mild diverticulitis, given patient's advanced age, dementia, and generalized abdominal pain with worse LLQ discomfort - will obtain CT Abdomen/Pelvis with IV Contrast. Reevaluation(s) Reevaluation #1: CBC without leukocytosis, baseline anemia, baseline thrombocytopenia. Electrolyte appropriate. Troponin negative. UA unremarkable. COVID/Flu/RSV negative. CT Head unremarkable. CT Abdomen/Pelvis notable only for small bilateral pleural effusions. CXR notable only for same small bilateral pleural effusions. Patient tolerating PO without difficulty. Plan: Discharge to home with PCP follow up Return precautions given Medications Administered Discontinued Medications Generic Name Dose Route Start Last Admin Trade Name Freq PRN Reason Stop Dose Admin Iohexol 85 ml 10/12/23 15:30 10/12/23 15:31 Iohexol 350 Mg/Ml 100 Ml Infus..Btl IV 10/12/23 15:31 85 ml ONCE ONE Administration Medical Decision Making Lab Data 10/12/23 13:31 10/12/23 13:31 Labs: Lab Results 10/12/23 10/12/23 10/12/23 Range/Units 13:31 16:31 17:00 WBC 5.6 (4.8-10.8) X10*3/uL RBC 3.63 L (4.20-5.50) X10*6/uL Hgb 11.1 L (12.0-16.0) g/dl Hct 34.1 L (37.0-47.0) % MCV 93.9 (80.0-98.0) fL MCH 30.6 (27.0-33.0) pg MCHC 32.6 (31.0-35.0) g/dl RDW 12.1 (11.0-16.0) % Plt Count 142 L (160-400) X10*3/uL MPV 10.1 (9.4-12.3) fL Immature Gran % (Auto) 0.2 (0.0-0.4) % Neut % (Auto) 60.6 (45-73) % Lymph % (Auto) 29.8 (20-40) % Hayes % (Auto) 7.3 (2-11) % Eos % (Auto) 1.4 (0-4) % Baso % (Auto) 0.7 (0-2) % Lymph # (Auto) 1.7 (1.2-4.9) X10*3/uL [place] # (Auto) 0.4 (0.1-1.2) X10*3/uL Eos # (Auto) 0.1 (0.0-0.4) X10*3/uL Baso # (Auto) 0.0 (0.0-0.2) X10*3/uL Abs Immat Gran (auto) 0.01 (0.00-0.03) X10*3/uL Absolute Neuts (auto) 3.4 (2.0-8.3) x10*3/uL Absolute Nucleated RBC 0.000 (0.0-0.012) X10*3/uL Nucleated RBC % (auto) 0.0 (0.0-0.2) /100WBC Sodium 140 (135-145) mmol/L Potassium 4.0 (3.3-5.1) mmol/L Chloride 104 (96-108) mmol/L Carbon Dioxide 29 (22-29) mmol/L Anion Gap 11 L (12-20) BUN 15 (9-16) mg/dL Creatinine 0.87 (0.5-1.4) mg/dL Estim Creat Clear Calc 38.0 Estimated GFR > 60 Random Glucose 93 (60-115) mg/dL Calcium 9.0 (8.4-10.2) mg/dL Total Bilirubin 0.8 (0.0-1.0) mg/dL AST 18 (5-31) U/L ALT 9 (0-31) U/L Alkaline Phosphatase 49 (39-117) U/L Troponin I High Sens 9.2 (<3.5-17.0) ng/L Total Protein 6.4 L (6.5-8.0) g/dL Albumin 3.6 (3.5-5.0) g/dL Lipase 24 (8-78) U/L Urine Color Yellow Urine Appearance Clear Urine pH 8.0 (5.0-9.0) Ur Specific [place] >= 1.030 H (1.005-1.025) Urine Protein Negative (Neg-Trace) mg/dL Urine Glucose (UA) Negative (Negative) mg/dL Urine Ketones Negative (Negative) mg/dL Urine Blood Negative (Negative) Urine Nitrite Negative (Negative) Ur Leukocyte Esterase Negative (Negative) Urine RBC 0-2 (0-2) /HPF Urine WBC 0-5 (0-5) /HPF Ur Squamous Epith Cells 0-2 (0-2) /HPF Urine Bacteria None Seen (None Seen) Hyaline Casts 0-2 (0-2) /LPF Influenza Type A (PCR) NEGATIVE (Negative) Influenza Type B (PCR) NEGATIVE (Negative) RSV RNA Qual (PCR) NEGATIVE (Negative) SARS-CoV-2 RNA (RT-PCR) NEGATIVE (Negative) Radiology Impression Discussion of test interpretation with radiology: I have reviewed the radiologist's reading. Radiologist Impression: EXAMINATION: CT HEAD WITHOUT CONTRAST CLINICAL INFORMATION: Headache. COMPARISON: CT head 01/13/2022. TECHNIQUE: Contiguous axial imaging was performed from the skull base to vertex without intravenous administration of contrast. This CT examination was performed using dose optimization techniques as appropriate, variously including the following: *Automated exposure control *Adjustment of mA and/or kV according to patient size (this includes techniques or standardized protocols for targeted exams where dose is matched to indication/reason for exam; i.e. extremities or head) *Use of iterative reconstruction technique DLP: 1105 mGy-cm FINDINGS: There is no acute intracranial hemorrhage or abnormal extra-axial collection. No intracranial mass effect or midline shift. Lateral and third ventricles are normal. No hydrocephalus. [place]-white matter differentiation is preserved and there is no evidence of acute territorial infarct. The calvarium and skull base are intact. Mastoid air cells and middle ear cavities are well aerated. No active paranasal sinus disease. CT/CT head/brain wo IV con IMPRESSION: Unremarkable CT scan of the head. No evidence of acute territorial infarct or hemorrhage. EXAMINATION: CT ABDOMEN AND PELVIS WITH CONTRAST CLINICAL INFORMATION: Abdominal pain. COMPARISON: 07/07/2023 TECHNIQUE: Multidetector volumetric images were obtained from the superior aspect of the liver through the pubic symphysis following administration 85 mL of Omnipaque 350 intravenous contrast. Sagittal and coronal reformatted images were obtained on the technologist's workstation. Oral contrast: No This CT examination was performed using dose optimization techniques as appropriate, variously including the following: *Automated exposure control *Adjustment of mA and/or kV according to patient size (this includes techniques or standardized protocols for targeted exams where dose is matched to indication/reason for exam; i.e. extremities or head) *Use of iterative reconstruction technique DLP: 471 mGy-cm FINDINGS: Motion artifact technically degrades image. LUNG BASES: Chronic interstitial lung disease. Small bilateral pleural effusions. Cardiomegaly. Trace pericardial effusion. LIVER, GALLBLADDER, AND BILIARY TREE: The liver is decreased in attenuation. No focal hepatic lesion or biliary ductal dilatation is present. The gallbladder is surgically absent. PANCREAS: Unremarkable. SPLEEN: Not enlarged. ADRENAL GLANDS: No adrenal mass. KIDNEYS AND URETERS: Cortical scarring lower pole left kidney. The kidneys enhance symmetrically. No hydronephrosis or perinephric fluid collection. BLADDER: Unremarkable. GASTROINTESTINAL TRACT: Possible gastric wall edema. Appendix is within normal limits. Extensive colonic diverticulosis. No small bowel obstruction. ABDOMINAL WALL: No significant hernia is appreciated. LYMPH NODES: No bulky lymphadenopathy. VASCULAR: No abdominal aortic aneurysm. PELVIC VISCERA: Small free fluid in the pelvis. OSSEOUS STRUCTURES: Healed fractures of the right superior and inferior pubic rami. Moderate compression fracture of T12. CT/CT abdomen pelvis w IV con IMPRESSION: Gastric wall edema is suspected. Advise correlation with direct visualization. Hepatic steatosis. Small bilateral pleural effusions. EXAMINATION: XR CHEST CLINICAL INFORMATION: Question bilateral pleural effusions and CT COMPARISON: Chest CT December 2021 and chest x-ray October 2016 TECHNIQUE: Frontal view of the chest was obtained. FINDINGS: The cardiac silhouette is enlarged but stable. Increased interstitial markings at the lung bases questionable lung disease. There is slight blunting at the bilateral costophrenic angles questionable for small bilateral pleural effusions. No pneumothorax. Degenerative changes of the spine and right shoulder. XR/XR chest 1V IMPRESSION: Stable enlargement of the cardiac silhouette. Question small bilateral pleural effusions and interstitial lung disease. Discharge Plan Discharge Clinical Impression: Abdominal pain, Chest pain, Headache Patient Disposition: Home, Self-Care Instructions: Abdominal Pain (ED) Additional Instructions: As we discussed, you were seen today for headache, chest pain, and abdominal pain. Your labs were at your normal. Your urine was not infected. Your CXR was unremarkable for acute abnormalities. Your CT scan of your head and abdomen/pelvis were unremarkable for acute abnormalities. Recommend you follow up with your PCP for re-evaluation within 1 week. Return to the hospital for worsening pain, fever, or passing out. Prescriptions: No Action trazodone 50 mg tablet 0.5 tab PO BEDTIME PRN (Reason: Insomnia) donepezil 10 mg tablet 1 tab PO BEDTIME sertraline 100 mg tablet 2 tab PO QAM mirtazapine 45 mg tablet 1 tab PO BEDTIME cholecalciferol (vitamin D3) 50 mcg (2,000 unit) capsule 1 cap PO QAM ondansetron 4 mg tablet,disintegrating 4 mg PO Q8H PRN (Reason: nausea and vomiting) Qty: 20 0RF pantoprazole [Protonix] 40 mg tablet,delayed release (DR/EC) 40 mg PO BID 30 Days Qty: 60 3RF sucralfate [Carafate] 100 mg/mL suspension 20 ml PO QNOON Qty: 1000 3RF
[2023-10-12 15:30] LABS: Lipase 24 U/L (8-78)
[2023-10-12] MEDS: iohexoL 350 MG/ML 100 ML INFUS..BTL 85 ML IV (15:31)
[2023-10-12 15:39] LABS: Troponin-I High Sensitivity 9.2 ng/L (<3.5-17.0)
[2023-10-12 16:31] VITALS: BP 151/68; PULSE 56; RESP 16; TEMP 36.8; O2SAT 95
[2023-10-12 17:12] LABS: Appearance Urine Clear; Color Urine Yellow; Glucose Urine UA Negative (Negative); Leukocyte Esterase Urine Negative (Negative); Nitrite Urine Negative (Negative); Specific Gravity - Urine >= 1.030 (1.005-1.025); Urine Blood Negative (Negative); Urine Ketones Negative (Negative); Urine Protein Negative (Neg-Trace)
[2023-10-12 17:14] LABS: Bacteria Urine None Seen (None Seen); Hyaline Casts Urine 0-2 /LPF (0-2); RBC Urine 0-2 /HPF (0-2); Squamous Epithelial Cell Urine 0-2 /HPF (0-2); WBC Urine 0-5 /HPF (0-5)
[2023-10-12 17:17] LABS: Influenza A PCR NEGATIVE (Negative); Influenza B PCR NEGATIVE (Negative); Resp Syncy Virus RNA Qual PCR NEGATIVE (Negative); SARS COV2 PCR INHOUSE NEGATIVE (Negative)
== END 2023-10-12 19:30 | disposition home or self-care (01) ==
PROVIDERS: Emergency Provider Emergency Medicine
DX: R51.9 Headache, unspecified (principal); R07.9 Chest pain, unspecified; R10.9 Unspecified abdominal pain; E11.22 Type 2 diabetes mellitus with diabetic chronic kidney disease; I12.9 Hypertensive chronic kidney disease with stage 1 through stage 4 chronic kidney disease, or unspecified chronic kidney disease; N18.9 Chronic kidney disease, unspecified; Z11.52 Encounter for screening for COVID-19; Z20.828 Contact with and (suspected) exposure to other viral communicable diseases
CPT/HCPCS: 0241U; 36415; 70450; 71045; 74177; 80053; 81001; 83690; 84484; 85025; 93005; 99284; 99285; Q9967

== ENCOUNTER → 2023-10-12 11:41 | Outpatient (BNV) | payer OTHER, SELFPAY | PROVIDERS: Emergency Provider Emergency Medicine; Visit Provider Internal Medicine Cardiovascular Disease | DX: R00.1 Bradycardia, unspecified (principal); R94.31 Abnormal electrocardiogram [ECG] [EKG] | CPT/HCPCS: 93010 ==

== ENCOUNTER 2023-10-24 09:55 | Outpatient (REF) | payer OTHER, SELFPAY ==
--- NOTE | ~2023-10-24 | FL_ITS ---
EXAMINATION: XR FLUOROSCOPY UPPER GI WITH AIR CLINICAL INFORMATION: Dysphagia. Dementia; Alzheimer's. COMPARISON: 03/13/2018 TECHNIQUE: Fluoroscopic air contrast upper GI examination was performed utilizing standard techniques with thin and thick barium and effervescent granules. Numerous spot images were obtained. FINDINGS: Surgical clips are present in the right upper quadrant consistent with prior history of cholecystectomy. Exaggerated thoracic kyphosis noted with associated spondylosis. Lateral cine images of the oropharynx and hypopharynx demonstrate normal swallow mechanism with normal epiglottic inversion and soft palate elevation. There is trace laryngeal penetration with thick barium. No glottic or subglottic aspiration identified. No nasopharyngeal reflux present. Hypopharyngeal structures appear normal without evidence of mass or diverticulum. There was no significant cricopharyngeal achalasia. Dual and single contrast images of the esophagus demonstrate normal caliber. No evidence of stricture, mass, or ulcerations identified. The esophagus is markedly tortuous. There is to and fro motion of the barium column with nonpropulsive tertiary contractions noted throughout the entire esophagus. Extensive disordered peristalsis present. No evidence of hiatus hernia identified. No significant gastroesophageal reflux was seen during the course of the examination and on reflux views. Dual contrast and single contrast images of the stomach demonstrated a normal contour. The gastric rugal folds appear thickened, possibly from gastritis, however possibly be due to underdistention of the stomach from poor tolerance of the effervescent granules. No evidence of mass, ulceration, or other abnormality. Contrast freely passed into the gastric antrum and duodenal bulb without delay. Single and air-contrast images of the duodenal bulb demonstrate no abnormality. The duodenal sweep has a normal appearance, course, and mucosal fold appearance. No malrotation. The imaged proximal jejunum has a normal fold pattern and caliber. FLUOROSCOPY TIME: 4 minutes 4 seconds Number of Spot Images: 10 Number of Cine: 10 DOSE AREA PRODUCT: 1918 uGy-m2 (microgray-meter squared) FL/FL barium swallow IMPRESSION: 1. Trace laryngeal penetration with thick barium. No evidence of aspiration. 2. To and fro motion of the barium column with nonpropulsive tertiary contractions noted throughout the entire esophagus consistent with somewhat advanced esophageal dysmotility. The esophagus is tortuous. 3. Thickened appearance of the gastric rugal folds which may represent gastritis, however may be secondary to underdistention of the stomach from poor tolerance of the effervescent granules. 4. No hiatus hernia and no definite reflux seen. This procedure was performed by Juan Ferrera PA-C, and supervised by Dr. Canseco
== END 2023-10-24 09:56 | disposition home or self-care (01) ==
LOC: HO.XRAY 09:55
PROVIDERS: PCP General Practice; Visit Provider Nurse Practitioner
DX: R13.10 Dysphagia, unspecified (principal)
CPT/HCPCS: 74220

== ENCOUNTER → 2023-10-24 09:55 | Outpatient (BNV) | payer OTHER, SELFPAY | PROVIDERS: PCP General Practice; Visit Provider Physician Assistant Surgical | DX: R13.10 Dysphagia, unspecified (principal) | CPT/HCPCS: 74221 ==

== ENCOUNTER 2023-12-17 10:06 | Day surgery (SDC) | payer OTHER, SELFPAY ==
--- NOTE | 2023-12-14 10:05 | HO.ANESPROP2 ---
Documented by User: Amairani Fields NP 12/14/23 10:11 HPI - Anesthesia Eval Consult details Narrative: 83yo F for Upper Endoscopy Alzheimer's dementia ? DM, no rx listed PMF Active Problems Active Problems: All Active Problems Esophageal dysmotility (Acute) Right sided abdominal pain (Acute) Asymmetrical thyroid (Acute) Chronic interstitial lung disease (Acute) Odynophagia (Acute) Dysphagia (Acute) Polyradiculopathy (Acute) Hearing loss (Acute) Alzheimer's dementia without behavioral disturbance (Acute) Depression (Acute) High cholesterol (Acute) Chronic kidney disease, stage 2 (mild) (Acute) Ascending aorta dilation (Acute) CHF (congestive heart failure) (Acute) Cardiomyopathy (Acute) Chronic right lower quadrant pain (Acute) GERD (gastroesophageal reflux disease) (Acute) Past Medical History Medical History Alzheimer disease Thoracic compression fracture Pubic bone fracture Closed fracture of iliac wing Closed rib fracture GERD (gastroesophageal reflux disease) HTN (hypertension) Dementia Diabetes Family History Family History Sister Epilepsy Surgical History Surgical History H/O colonoscopy History of varicose vein ligation and stripping History of hysterectomy History of cholecystectomy Social History Social History (Reviewed 08/08/23 @ 09:21 by Shorty Leon [facility] Household Members: None Housing: Apartment Do you presently have visiting nurse or other home services: No Patient Tobacco Use Status: Never used Tobacco Advance Directives: No Advance Directives Information Provided: Yes Advance Directives Date on File: 02/06/22 Nutrition Risks: No Nutritional Risk service: No Current occupational status: disabled Meds Allergies Allergy/AdvReac Type Severity Reaction Status Date / Time acetaminophen [Percocet] Allergy Mild denies Verified 08/08/23 09:13 oxycodone [Percocet] Allergy Mild denies Verified 08/08/23 09:13 Home Medications ?Medication ?Instructions ?Recorded ?Confirmed ?Last Taken ?Type cholecalciferol (vitamin D3) 50 1 cap PO QAM 01/13/22 01/13/22 01/12/22 History mcg (2,000 unit) capsule donepezil 10 mg tablet 1 tab PO BEDTIME 01/13/22 01/13/22 01/12/22 History mirtazapine 45 mg tablet 1 tab PO BEDTIME 01/13/22 01/13/22 01/12/22 History sertraline 100 mg tablet 2 tab PO QAM 01/13/22 01/13/22 01/12/22 History trazodone 50 mg tablet 0.5 tab PO BEDTIME PRN Insomnia 01/13/22 01/13/22 01/12/22 History Exam Pertinent Lab Results Pertinent Lab Results: Laboratory Tests 10/12/23 13:31 WBC 5.6 Hgb 11.1 L Hct 34.1 L Plt Count 142 L Sodium 140 Potassium 4.0 Chloride 104 Carbon Dioxide 29 BUN 15 Creatinine 0.87 Narrative Narrative: EKG 2023 Vent. Rate : 053 BPM Atrial Rate : 053 BPM P-R Int : 158 ms QRS Dur : 094 ms QT Int : 470 ms P-R-T Axes : 013 -38 153 degrees QTc Int : 441 ms Sinus bradycardia Left axis deviation Left ventricular hypertrophy with repolarization abnormality ( R in aVL , [place] product , Romhilt-N[place]o ) Abnormal ECG When compared with ECG of 13-JAN-2022 10:39, Nonspecific T wave abnormality has replaced inverted T waves in Inferior leads ECHO 06/2023 Conclusions: - 1. Mildly reduced LV ejection fraction 45-50% with impaired relaxation filling pattern 2. Moderately dilated left atrium 3. Mild aortic regurgitation 4. Upper limits of normal RV systolic pressure 5. Moderately dilated ascending aorta at 4.5 cm 6. No gross pericardial effusion Assessment and Plan Assessment Anesthesia Assessment: Chart Reviewed Documented by User: Lori Caraballo MD 12/17/23 12:48 [facility] Past Medical History Medical History Alzheimer disease Thoracic compression fracture Pubic bone fracture Closed fracture of iliac wing Closed rib fracture GERD (gastroesophageal reflux disease) HTN (hypertension) Dementia Diabetes Family History Family History Sister Epilepsy Family history of problems with anesthesia: No Surgical History Surgical History H/O colonoscopy History of varicose vein ligation and stripping History of hysterectomy History of cholecystectomy History of Problems with Anesthesia: No Social History Social History Household Members: None Housing: Apartment Do you presently have visiting nurse or other home services: No Patient Tobacco Use Status: Never used Tobacco Advance Directives: No Advance Directives Information Provided: Yes Advance Directives Date on File: 02/06/22 Nutrition Risks: No Nutritional Risk service: No Current occupational status: disabled Meds Allergies Allergy/AdvReac Type Severity Reaction Status Date / Time acetaminophen [Percocet] Allergy Mild denies Verified 08/08/23 09:13 oxycodone [Percocet] Allergy Mild denies Verified 08/08/23 09:13 Home Medications ?Medication ?Instructions ?Recorded ?Confirmed ?Last Taken ?Type cholecalciferol (vitamin D3) 50 1 cap PO QAM 01/13/22 01/13/22 01/12/22 History mcg (2,000 unit) capsule donepezil 10 mg tablet 1 tab PO BEDTIME 01/13/22 01/13/22 01/12/22 History mirtazapine 45 mg tablet 1 tab PO BEDTIME 01/13/22 01/13/22 01/12/22 History sertraline 100 mg tablet 2 tab PO QAM 01/13/22 01/13/22 01/12/22 History trazodone 50 mg tablet 0.5 tab PO BEDTIME PRN Insomnia 01/13/22 01/13/22 01/12/22 History Exam Airway Mallampati Class: II (edentuolous) Heart: rrr Lungs: cta Assessment and Plan Final Anesthetic Review Family History of Problems with Anesthesia: No History of Problems with Anesthesia: No NPO: Yes ASA Class: III Final Preanesthetic Review: No Changes in Pt Med Stat, Meds/Allgs Chart Reviewed and Consent Obtained/Reviewed Patient Risk: Intermediate Procedure Risk: Intermediate Anesthetic Plan Anesthetic Plan: MAC: Disposition: Standard PACU
--- OUTSIDE RECORDS SUMMARY | 2023-12-17 10:10 | XMS_ITS | Patient Health Record ---
Author Organization [facility] Address [address] [place] [address] Care Team Providers Care Shared Services Manager Name Role Phone Marisabel Delaney M.D. Primary Care Provider UnaFahad Juares Unavailable [phone] REASON FOR REFERRAL No Information SOCIAL HISTORY Sex Assigned At : Social History Observation Description Sex Assigned At Unknown PLAN OF TREATMENT No Information Insurance Providers Payer Name Payer Address Payer Phone Subscriber Number Group Number Insured Name Patient Relationship to Insured Coverage Start Date Coverage End Date [facility] [address] [place] [address] [id number] JEFFERY LOREDO Self - patient is the insured
--- OUTSIDE RECORDS SUMMARY | 2023-12-17 10:10 | XMS_ITS | Continuity of Care Document ---
Author Organization [facility] Address [address] [place] [address]- Care Team Providers Care It Support Specialist Name Role Phone Breezy ARMSTRONG, Dipak Primary Care Physician Encounter [facility] Date(s): 10/16/23 - 11/15/23 [facility] [address] [place], [place] [address] Allergies, Adverse Reactions, Alerts Substance Reaction [...] Poly (PPV23) (oldterm) 7 09/01/09 Giv en 1Result Comment: [facility] [id number] 2Admin Note: VIS GIVEN 03/14/2011 3Admin Note: VIS GIVEN-DATED 03/29/10 4Admin Note: VIS GIVEN-DATED 03/30/09 5Admin Note: pt tolerated 6Admin Note: VIS GIVEN 12/24 7Admin Note: VIS GIVEN-11/26 Medications dicyclomine 10 mg oral capsule See Instructions, 1 capsule By Mouth 4 times a day before meals and at bedtime, # 90 capsule, 11 Refills, Maintenance, 06/29/20 14:01:00 EST, Capsule, [facility], bengali labels, 147.2, cm, 06/29/20 13:48:00 EST, Height, 57, kg, 11... Start Date: 06/29/20 Status: Ordered donepezil 10 mg oral tablet 10 mg, 1, tablet, By Mouth, Daily at bedtime, # 30 tablet, Refills 11, Tot. Refills 11, Maintenance, 07/25/19 11:23:25 EST, Route to Pharmacy Electronically, [id number], [facility] [place], 145, cm, 07/25/19... Start Date: 07/25/19 Status: Ordered lisinopril 20 mg oral tablet See Instructions, TAKE 1 TABLET BY MOUTH AT BEDTIME, # 30 tablet, Refills 5, Tot. Refills 5, Soft Stop, 04/27/21 14:27:00 EDT, Instructions Replace Required Details, Route to Pharmacy Electronically,[facility], 155, cm, 02/16/21 1... Start [...] in AM, # 90 capsule, 11 Refills, [facility], 155, cm, 05/12/21 10:41:00 EDT, [...] capsule, 11 Refills, Maintenance, 06/29/20 14:01:00 EST, [facility], bengali labels, 147.2, cm, 06/29/20 13:48:00 EST, Height,... Start Date: 06/29/20 Status: Ordered Vitamin D3 2000 intl units oral capsule 1 capsule, By Mouth, Daily in AM, # 100 capsule, 1 Refills, [facility], 155, cm, 05/12/21 10:41:00 EDT, Height, 54.2, kg, 02/16/21 11:03:00 EDT, Dry Weight Start Date: 01/22/22 Status: Ordered Voltaren 1% topical gel 1 application, Topically, 4 times a day, PRN for pain, # 100 Gm, 0 Refills, Maintenance, 05/12/21 11:03:00 EDT, Gel, [facility], Partial fill upon patient request [...] Confirmed Active Thyroid nodule, per 03-25-2014 scanned [place] problem lsit Confirmed Active Vascular calcification 6 Confirmed Active Vitamin D deficiency Confirmed Active 1moderate on x-ray 2017 2clinically, it would be a balance between followup for possibel surgeyr, versus risk of surgery given her many comobridities including dementia.... [id number] ECHO 4.0 cm 4per -2017 Cardiology ntoe: , heart failure with recovered EF presumably non- ischemic CM NYHA III and mild aortic insufficiency 5right L4-S1 polyradiculopathy. Bilateral S1 involvement 6mild on CT Social History Social History Type Response Smoking Status Never smoker; Tobacc o user in household: No entered on: 02/02/14 Sex Female Patient Care team information Care Team Personnel Name: Sivan Ureña RN Position: [facility] RN Member Role: Primary Care Nurse Name: Ha Marrero MD Position: [facility] Renal MD Member Role: Lifetime Consulting Physician Address: Address: [address] [place] [address] [id number] [facility] [place], [place] - Name: Corrina Salinas RN Position: [facility] RN Member Role: Primary Care Nurse Name: Destiny Joshua RN Position: [facility] RN Member Role: Primary Care Nurse Name: Gurinder Palomino RN Position: [facility] SN RN Member Role: Primary Care Nurse Name: Carina Beauchamp RN Position: [facility] SN RN Member Role: Primary Care Nurse Name: Jeancarlos Garzon RN Position: [facility] RN Member Role: Primary Care Nurse Name: Dipak Tijerina MD Position: [facility] Physician - Primary Care Member Role: PCP Address: Address: [address] [place] [address] [facility] [place] [address]- Name: Jaye Quinn RN Position: [facility] RN Member Role: Primary Care Nurse Name: Amairani Benítez RN Position: [facility] RN Member Role: Primary Care Nurse Care Team Related Persons Name: RICHAR TURNER Address: [address] [place] [address] Name: OKSANA NOEL Address: home [address] [place], [place] Name: HARJEET DEVLIN
--- NOTE | 2023-12-17 11:32 | MHC.SHP ---
Pre-Procedural Eval Section A - 24 Hr Update-Section A only Date of Service: 12/17/23 The patient is an INPATIENT: No The patient has been examined within 24 hours of the surgical procedure. The History & Physical has been completed within 30 days and I have reviewed it.: No Section B - Complete if H&P > 30 days Chief Complaint: Dysphagia, RUQ pain Relevant Family History (Specify if Yes): No Relevant Social History: None Present Medications: see Short Stay Collaborative assessment Medical History: Significant History (Thoracic compression fracture Pubic bone fracture Closed fracture of iliac wing Closed rib fracture GERD (gastroesophageal reflux disease) HTN (hypertension) Dementia Diabetes) History of Previous Operations: Relevant previous surgery/procedure and date(s) (H/O colonoscopy History of varicose vein ligation and stripping History of hysterectomy History of cholecystectomy) Allergies: Allergies Allergy/AdvReac Type Severity Reaction Status Date / Time acetaminophen [Percocet] Allergy Mild denies Verified 08/08/23 09:13 oxycodone [Percocet] Allergy Mild denies Verified 08/08/23 09:13 Review of Systems Sugical H&P ROS: Negative: Cardiovascular, Respiratory and Gastrointestinal and Yes, Specify: Constitution (Chronically ill with dementia) Exam Surgical H&P Exam: Normal: Heart, Normal: Lungs, Normal: Extremities and Normal: Abdomen Plan Diagnosis/Plan: Unchanged I have reviewed the history and physical and performed a pertinent physical examination on my patient. No changes have occurred unless specified. Time Spent With Patient Time: Total time managing care of this patient today ____ minutes.
[2023-12-17 12:06] VITALS: BMI 24.5
[2023-12-17] MEDS: Lactated Ringers 1,000 ML 50 ML IVCONT (12:12)
--- NOTE | 2023-12-17 12:41 | W.PM.OPN ---
Operative Note Operative Note Date of Service: 12/17/23 Narrative: FLEXIBLE TRANSORAL UPPER GASTROINTESTINAL ENDOSCOPY WITH BIOPSIES AND ESOPHAGEAL BALLOON DILATION Pre-op diagnosis: GERD, RUQ abdominal pain, Dysphagia, salty taste in mouth Barium swallow showed: 1. Trace laryngeal penetration with thick barium. No evidence of aspiration. 2. To and fro motion of the barium column with nonpropulsive tertiary contractions noted throughout the entire esophagus consistent with somewhat advanced esophageal dysmotility. The esophagus is tortuous. 3. Thickened appearance of the gastric rugal folds which may represent gastritis, however may be secondary to underdistention of the stomach from poor tolerance of the effervescent granules. Post-op diagnosis: Dysphagia, gastric polyps, Gastritis, Endoscopist:? Sofia Ayala MD Anesthesia:?MAC UPPER ENDOSCOPY Consent: Indications for the procedure and potential complications of bleeding, perforation, reaction to medications and missed diagnosis were discussed with the patient's son and HCP, Neil Ramirez, and informed consent was obtained from the son. Instrument: Olympus GIF H 190 mid size upper endoscope Monitoring: Vital signs and clinical assessment, continuous EKG monitoring, Pulse oximetry, Carbon Dioxide monitoring and blood pressure monitoring were done throughout the procedure. Procedure: The patient was placed in the left lateral decubitis position and pre-procedure medications were administered and a bite block was placed. The endoscope was inserted into the mouth and advanced under direct vision to the third part of duodenum. A careful inspection was made as the upper endoscope was withdrawn including a retroflexed examination of the proximal stomach; Findings and interventions are described below. Findings: Larynx: Normal Esophagus: GE junction at 32 cms. Mildly tortuous esophagus with increased tertiary contractions without stricture or ring, esophagitis or Saenz's. Empiric balloon dilation of distal esophagus was performed with an 18 mm (54 F) CRE balloon x 60 seconds. Stomach: Friable appearing mucosa in the gastric body and antrum - biopsied. A few 3-4 mm benign appearing gastric polyps in the body of the stomach - biopsied. Grade 2 flap valve on retroflexed examination of the cardia. Duodenum: Normal bulb and descending duodenum Intervention: Biopsies as noted above Impression and Post Procedure Diagnosis: Endoscopy Findings: ESOPHAGUS: Dysphagia likely due to esophageal motility disorder (as noted on barium swallow) STOMACH: Gastritis and benign appearing gastric polyps Plan: Pt to schedule a FU appointment in the GI clinic with Yessy Crow NP. Above findings were reviewed with the patient's son and HCP, Neil Ramirez. A diagnosis of esophageal motility disorder was reviewed and advised to give pt soft foods, encourage her to chew it well and take sips of fluids with eating.
[2023-12-17 13:24] VITALS: BP 143/78; PULSE 94; RESP 16; TEMP 36.4; O2SAT 95
[2023-12-17 13:35] VITALS: BP 139/82; PULSE 82; RESP 16; O2SAT 96
[2023-12-17 13:50] VITALS: BP 131/72; PULSE 72; RESP 16; O2SAT 96
[2023-12-17 14:05] VITALS: BP 133/80; PULSE 75; RESP 16; TEMP 36.4; O2SAT 97
== END 2023-12-17 14:41 | disposition home or self-care (01) ==
PROVIDERS: PCP General Practice; Visit Provider Internal Medicine Gastroenterology
PROC: 0DJ08ZZ Inspection of Upper Intestinal Tract, Via Natural or Artificial Opening Endoscopic (ICD-10-PCS; CPT 43235; principal; 2023-12-17 11:00)
DX: R13.10 Dysphagia, unspecified (principal); K22.4 Dyskinesia of esophagus; R10.11 Right upper quadrant pain; K29.50 Unspecified chronic gastritis without bleeding; K31.7 Polyp of stomach and duodenum; K21.9 Gastro-esophageal reflux disease without esophagitis; E11.22 Type 2 diabetes mellitus with diabetic chronic kidney disease; I13.0 Hypertensive heart and chronic kidney disease with heart failure and stage 1 through stage 4 chronic kidney disease, or unspecified chronic kidney disease; N18.2 Chronic kidney disease, stage 2 (mild); I42.9 Cardiomyopathy, unspecified; G30.1 Alzheimer's disease with late onset; F02.C0 Dementia in other diseases classified elsewhere, severe, without behavioral disturbance, psychotic disturbance, mood disturbance, and anxiety; J84.9 Interstitial pulmonary disease, unspecified; Z98.890 Other specified postprocedural states; Z79.899 Other long term (current) drug therapy
CPT/HCPCS: 43249; 43239; 88305; 88313; 88342; C1726; J2704

== ENCOUNTER → 2023-12-17 10:06 | Outpatient (BNV) | payer OTHER, SELFPAY | PROVIDERS: PCP General Practice; Visit Provider Internal Medicine Gastroenterology | DX: K21.9 Gastro-esophageal reflux disease without esophagitis (principal); R13.10 Dysphagia, unspecified; K31.7 Polyp of stomach and duodenum; K29.70 Gastritis, unspecified, without bleeding | CPT/HCPCS: 43239; 43249 ==

== ENCOUNTER 2024-03-04 10:40 | Outpatient (AMB) | payer OTHER, SELFPAY ==
--- NOTE | 2024-03-04 11:06 | MHC.AMNUTRGE ---
VS Expanded 03/04/24 11:07 Height 5 ft Weight 130 lb 8.218 oz BMI 25.5 Intake Visit Reasons: Malnutrition Allergies acetaminophen [Percocet] Allergy (Mild, Verified 08/08/23 09:13) denies oxycodone [Percocet] Allergy (Mild, Verified 08/08/23 09:13) denies Nutrition Presentation Details: Pt presents for MNT for malnourishment Pt's PCP: Dr Marisabel Fontenot at [facility] Pt presents with son during this appt, who is the care take. Pt son reports Pt was hospitalized 6 months ago (07/2023), was having lack of appetite and had lost weight, reaching 112-115 lbs. Pt's son reports Pt 's appetite is improving , was getting special k nutritional shakes , 2 a day and has gradually gained weight. No longer having the nutritional supplements. Typical meal: 10 am chocolate with milk or Danish toast or pancake with syrup , no beverage L/Dinner: rice/beans, chicken , water snack: hollis milk and corn muffin no vomiting, no diarrhea BS Monitoring Most Recent Diabetes Results: Creatinine 0.87 mg/dL (0.5-1.4) 10/12/23 Blood Urea Nitrogen 15 mg/dL (9-16) 10/12/23 Sodium 140 mmol/L (135-145) 10/12/23 Potassium 4.0 mmol/L (3.3-5.1) 10/12/23 Chloride 104 mmol/L (96-108) 10/12/23 Carbon Dioxide 29 mmol/L (22-29) 10/12/23 Calcium 9.0 mg/dL (8.4-10.2) 10/12/23 AST 18 U/L (5-31) 10/12/23 ALT 9 U/L (0-31) 10/12/23 Total Protein 6.4 g/dL (6.5-8.0) L 10/12/23 Albumin 3.6 g/dL (3.5-5.0) 10/12/23 [facility] Medical History (Updated 03/10/24 @ 14:07 by Chasity Hollins, RD, LDN) Alzheimer disease Thoracic compression fracture Pubic bone fracture Closed fracture of iliac wing Closed rib fracture GERD (gastroesophageal reflux disease) HTN (hypertension) Dementia Diabetes Surgical History H/O colonoscopy History of varicose vein ligation and stripping History of hysterectomy History of cholecystectomy Family History Sister Epilepsy Social History Household Members: None Housing: Apartment Do you presently have visiting nurse or other home services: No Patient Tobacco Use Status: Never used Tobacco Advance Directives Date on File: 02/06/22 service: No Current occupational status: disabled Assessment & Plan Assessment & Plan (1) Malnourished: Comment: Per Pt's fam , Pt wt at 112-115lbs in 07/2023, gradually gaining weight via nutritional supplements Code(s): E46 - Unspecified protein-calorie malnutrition Category: Medical Plan: est kcal needs as per 25 kcal /kg bw: 1500 est prot as per 1 g/kg bw: 59 g/d est fluid needs as per 25 ml/kg bw: 1500 Review : fluid intake Protein sources of foods Patient Instructions: recommend having a meal supplement in place of skipping meal Encourage having fruits/water/juice in between meals, keeping hydrated, Coding Level of Care Code Nutr Indiv Intake (21317) Diagnoses Malnourished E46 Time Spent (min) 30
[2024-03-04 11:07] VITALS: BMI 25.5
== END 2024-03-04 11:32 | disposition home or self-care (01) ==
PROVIDERS: PCP General Practice; Visit Provider Dietitian, Registered
DX: E46 Unspecified protein-calorie malnutrition (principal)

== ENCOUNTER → 2024-03-04 10:40 | Outpatient (BNVA) | payer OTHER, SELFPAY | PROVIDERS: PCP General Practice; Visit Provider Dietitian, Registered | DX: E46 Unspecified protein-calorie malnutrition (principal) | CPT/HCPCS: 97802 ==

== ENCOUNTER 2024-05-28 14:45 | Outpatient (AMB) | payer OTHER, SELFPAY ==
--- NOTE | 2024-05-28 14:49 | MHC.OFFVIS ---
Vital Signs 05/28/24 15:04 Height 5 ft Weight 117 lb 4.575 oz BMI 22.9 BP 157/84 H Blood Pressure Location Rt brachial Position Sitting Pulse 78 Intake Visit Reasons: s/p EGD Intake Note: Janice returns to in office follow up s/p EGD. CC: Per patient's son Janice is not eating and c/o abdominal RUQ pain, salty and sour taste in her mouth. Patient's son also states that she is not normal and she spends most of her time on bed. She c/o burning sensation in her mouth and tongue. Per patient she has to be spitting out to not swallow the saliva because it martel her to swallow it. Travel Sales Consultant Required: Yes Travel Sales Consultant Name: [facility] ship wirer Accompanied by: Son Allergies acetaminophen [Percocet] Allergy (Mild, Verified 06/25/24 15:21) denies oxycodone [Percocet] Allergy (Mild, Verified 06/25/24 15:21) denies HPI HPI s/p EGD: Details: Assessment & Plan (1) Odynophagia: Code(s): R13.10 - Dysphagia, unspecified (2) Dysphagia: Code(s): R13.10 - Dysphagia, unspecified (3) GERD (gastroesophageal reflux disease): Code(s): K21.9 - Gastro-esophageal reflux disease without esophagitis (4) Chronic interstitial lung disease: Code(s): J84.9 - Interstitial pulmonary disease, unspecified (5) Asymmetrical thyroid: Code(s): E07.9 - Disorder of thyroid, unspecified (6) Right sided abdominal pain: Code(s): R10.9 - Unspecified abdominal pain Plan [place] Citizen #Moira and Nabeel The record shows she was treated with amoxicillin after the CT. She is here with her son who is NOT the main instantizer operator and does not contribute much to the history. She lives with her younger son. She is complaining of saltiness in my mouth and throat pain when I swallow. However, she says her throat hurts even when she is not swallowing. This is described as a burning pain. She has frequent nausea. She is always spitting her saliva. She does better swallowing liquids like malt (a soda) not much coffee and not too much water. She also says that since they did an operation from here to here (she points to her midline epi area to the lower abd) I have had pain in the RUQ. Her son seems to think that she had a perforation in her colon after a colonoscopy. This was at [facility] many years ago. She can not provide a clear history of exacerbating and relieving factors of the pain except that she has to sleep splinting her right side with a pillow. The pain is there all day. At times it is worse with eating - the greater the qty eaten the worse the pain. This interferes with her eating as she fears the pain. Despite this bad experience, she and her family feel they would be willing to undergo endoscopic procedures if it will resolve the problem. Her BM's are mixed between formed and some diarrhea. Her wt has decreased from 125 to 113 but her son feels this is multifactorial as she also has trouble with her dentition - she has lost her bottom dentures and is not eligible for another set. At point given her age and lack of history of polyps I do not think a colonoscopy would be worthwhile risk versus benefit diagnosing her pain. However, since she is bothered more by the swallowing and this is affecting her nutrition I think an upper endoscopy may be prudent. She is status post cholecystectomy and this may be contributing to cramping and pain on the right of the abdomen and it is likely that she has bile reflux on top age related reflux. Help with the swallowing I am going to change her omeprazole to pantoprazole 40 mg twice a day (although continuing high-dose PPI may not be in her best interest giving osteoporosis and a recent pelvic fracture) and also put her on a dose of liquid Carafate. A barium swallow would probably be prudent. I educate them that she probably needs to drink more fluids as she does not seem to drink much, and likely this is concentrating the salty this of her saliva causing the salty taste in her mouth. On physical exam I noticed that she has a remarkably asymmetry of her thyroid right greater than left so I think an ultrasound of the thyroid would be appropriate to see if this is impacting her swallowing. I also note that she has fine crackles throughout her lungs with no diagnosis attached; however there is a CT scan on record showing she has chronic interstitial lung disease. Her son says she never smoked but her was a heavy smoker so this could be relative secondhand smoking. She does not complain of any shortness of breath and she is not treated. 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 At this point I will see them back in 4 weeks to evaluate her response the medications. Orders: Orders EGD with Bunch - GI Use Only Today R13.10 - Dysphagia, unspecified FL barium swallow Today R13.10 - Dysphagia, unspecified US thyroid Today E07.9 - Disorder of thyroid, unspecified Medications: New pantoprazole (Protonix) 40 mg PO BID 30 days 60 tabs 3RF K21.9 - Gastro-esophageal reflux disease without esophagitis, R13.10 - Dysphagia, unspecified sucralfate (Carafate) 20 mL PO QNOON 1,000 mL 3RF R13.10 - Dysphagia, unspecified Patient Instructions: Janice Yani Estoy cambiando algunos de koki medicamentos: por favor DEJE de kristi omeprazol y le estoy recetando lo siguiente: 1. Pantoprazol 40 mg dos veces al d?a y 2. Carafate (sucralfato) l?quido 2 tazas al mediod?a todos los d?as. He ordenado 2 pruebas, un trago de bario y jessica endoscopia digestiva superior. Mi personal llamar? para programar estos procedimientos. Quiero verla en 4 semanas para ana luisa c?mo le va con los medicamentos. BARIUM SWALLOW 10/25/23 FINDINGS: Surgical clips are present in the right upper quadrant consistent with prior history of cholecystectomy. Exaggerated thoracic kyphosis noted with associated spondylosis. Lateral cine images of the oropharynx and hypopharynx demonstrate normal swallow mechanism with normal epiglottic inversion and soft palate elevation. There is trace laryngeal penetration with thick barium. No glottic or subglottic aspiration identified. No nasopharyngeal reflux present. Hypopharyngeal structures appear normal without evidence of mass or diverticulum. There was no significant cricopharyngeal achalasia. Dual and single contrast images of the esophagus demonstrate normal caliber. No evidence of stricture, mass, or ulcerations identified. The esophagus is markedly tortuous. There is to and fro motion of the barium column with nonpropulsive tertiary contractions noted throughout the entire esophagus. Extensive disordered peristalsis present. No evidence of hiatus hernia identified. No significant gastroesophageal reflux was seen during the course of the examination and on reflux views. Dual contrast and single contrast images of the stomach demonstrated a normal contour. The gastric rugal folds appear thickened, possibly from gastritis, however possibly be due to underdistention of the stomach from poor tolerance of the effervescent granules. No evidence of mass, ulceration, or other abnormality. Contrast freely passed into the gastric antrum and duodenal bulb without delay. Single and air-contrast images of the duodenal bulb demonstrate no abnormality. The duodenal sweep has a normal appearance, course, and mucosal fold appearance. No malrotation. The imaged proximal jejunum has a normal fold pattern and caliber. FLUOROSCOPY TIME: 4 minutes 4 seconds Number of Spot Images: 10 Number of Cine: 10 DOSE AREA PRODUCT: 1918 uGy-m2 (microgray-meter squared) FL/FL barium swallow IMPRESSION: 1. Trace laryngeal penetration with thick barium. No evidence of aspiration. 2. To and fro motion of the barium column with nonpropulsive tertiary contractions noted throughout the entire esophagus consistent with somewhat advanced esophageal dysmotility. The esophagus is tortuous. 3. Thickened appearance of the gastric rugal folds which may represent gastritis, however may be secondary to underdistention of the stomach from poor tolerance of the effervescent granules. 4. No hiatus hernia and no definite reflux seen. ULTRASOUND OF THE THYROID EGD 12/17/23 Findings: Larynx: Normal Esophagus: GE junction at 32 cms. Mildly tortuous esophagus with increased tertiary contractions without stricture or ring, esophagitis or Saenz's. Empiric balloon dilation of distal esophagus was performed with an 18 mm (54 F) CRE balloon x 60 seconds. Stomach: Friable appearing mucosa in the gastric body and antrum - biopsied. A few 3-4 mm benign appearing gastric polyps in the body of the stomach - biopsied. Grade 2 flap valve on retroflexed examination of the cardia. Duodenum: Normal bulb and descending duodenum Intervention: Biopsies as noted above Impression and Post Procedure Diagnosis: Endoscopy Findings: ESOPHAGUS: Dysphagia likely due to esophageal motility disorder (as noted on barium swallow) STOMACH: Gastritis and benign appearing gastric polyps Plan: Pt to schedule a FU appointment in the GI clinic with Yessy Crow NP. Above findings were reviewed with the patient's son and HCP, Neil Ramirez. A diagnosis of esophageal motility disorder was reviewed and advised to give pt soft foods, encourage her to chew it well and take sips of fluids with eating. BIOPSY Received: 12/17/23 ADDENDUM REPORT Addendum Addendum #1 Immunostain for H. pylori is non-reactive (A and B). No change is made to the diagnoses. Electronically Signed By: Art Barroso MD 12/24/23 1058 Diagnosis A. Gastric antrum, biopsy: Gastric antral mucosa with minimal chronic inactive gastritis; negative for H pylori, intestinal metaplasia and dysplasia. B. Gastric polyp: Gastric mucosa with features compatible with fundic gland polyp, and focal minimal chronic inactive inflammation; negative for H pylori, intestinal metaplasia and dysplasia TODAY'S VISIT [place] Citizen #Chris Motta She does not remember the EGD, but she does not perceive any change. Her largest complaint is a salty taste in her mouth and a strange taste that she thinks bothers her esophagus. Her tongue also martel. She also has a lot of snorting and possible sinus problems. She also has poorly fitting bottom dentures. Her son who is with her today says this has been a problem for many years with the swallowing. They are aware of safe swallowing precautions, but given the patient's dementia is is unclear how well she can follow these on her own accord. She continues on protonix bid and sucralfate. ROV 4 weeks. [facility], LAT[facility] Medical History Alzheimer disease Thoracic compression fracture Pubic bone fracture Closed fracture of iliac wing Closed rib fracture GERD (gastroesophageal reflux disease) HTN (hypertension) Dementia Diabetes Surgical History H/O colonoscopy History of varicose vein ligation and stripping History of hysterectomy History of cholecystectomy Family History Sister Epilepsy Social History Household Members: None Housing: Apartment Do you presently have visiting nurse or other home services: No Patient Tobacco Use Status: Never used Tobacco Advance Directives Date on File: 02/06/22 service: No Current occupational status: disabled Review of Systems Const Denies fatigue, Denies fever(s), Denies night sweats, Denies poor appetite and Denies weight loss ENT Reports Normal hearing present, Denies dental pain, Reports dysphagia, Denies hearing loss, Denies mouth pain, Denies odynophagia, Denies throat swelling, Denies tongue swelling and Reports other (Dentition adequate) Card Reports no additional complaints Resp Reports no additional complaints GI Details: Denies abdominal pain, Denies melena, Denies bloating, Denies hematochezia, Denies constipation, Denies GI cramping, Reports dysphagia, Denies excessive flatus, Denies early satiety, Reports heartburn, Denies diarrhea, Denies nausea, Denies odynophagia, Denies vomiting and Denies hematemesis Skin/Breast Denies pruritus, Denies lesions, Denies rash and Denies jaundice Neuro Reports Normal hearing present, Denies Abnormal speech present and Reports memory loss Psych Reports memory loss Endo Denies fatigue Aller/Immun Denies throat swelling and Denies tongue swelling Physical Exam Vital Signs: Last Vital Signs Pulse 78 05/28/24 15:04 BP 157/84 H 05/28/24 15:04 BMI result Body Mass Index 22.9 Const General: cooperative, no acute distress, well developed and well groomed Nutritional Appearance: average body habitus and well nourished Orientation/consciousness: oriented to person, oriented to place and oriented to time Limitations: language barrier and other limitations HEENT Head: Yes normocephalic and Yes atraumatic Eyes General: appearance normal, both eyes and all related structures Pupils: Equal, round and reactive pupils present Neck Neck: Yes normal visual inspection and Yes no lymphadenopathy Thyroid: Thyroid normal Resp Effort & Inspection: normal respiratory effort and able to speak in complete sentences Auscultation: clear to auscultation bilaterally Cardio Rate: regular rate Rhythm: regular rhythm Heart sounds: Normal, physiologic split S2 sound present Peripheral pulses: radial pulses present and posterior tibial pulses present GI Inspection: No distended and No Abdominal panniculus present Palpation (GI): Soft to palpation, nontender, no guarding, not rigid and No hepatosplenomegaly present Percussion: Yes normal to percussion Auscultation: normal bowel sounds Rectal Exam - Female: deferred Skin General skin exam: no rashes or lesions noted, turgor normal, skin not dry, no jaundice, No spider nevi and no striae Rashes: no rashes Nails: normal Neuro General: oriented to person, oriented to place and oriented to time Cranial nerves: Yes Equal, round and reactive pupils present and Yes Normal hearing present Speech: No Abnormal speech present Extrem General: Yes normal to inspection, No clubbing, No cyanosis and No edema Psych Appearance: grossly normal and well kempt Mental Status: mental status grossly normal Speech and movement: Normal speech and movement present Affect: normal affect Attitude: cooperative Thought process: Normal thought process present and not confabulating Thought content: Normal thought content present Insight: Poor insight present (Psych) Judgement: Poor judgement present (Psych) Results Reviewed Results Reviewed: BARIUM SWALLOW 10/25/23 FINDINGS: Surgical clips are present in the right upper quadrant consistent with prior history of cholecystectomy. Exaggerated thoracic kyphosis noted with associated spondylosis. Lateral cine images of the oropharynx and hypopharynx demonstrate normal swallow mechanism with normal epiglottic inversion and soft palate elevation. There is trace laryngeal penetration with thick barium. No glottic or subglottic aspiration identified. No nasopharyngeal reflux present. Hypopharyngeal structures appear normal without evidence of mass or diverticulum. There was no significant cricopharyngeal achalasia. Dual and single contrast images of the esophagus demonstrate normal caliber. No evidence of stricture, mass, or ulcerations identified. The esophagus is markedly tortuous. There is to and fro motion of the barium column with nonpropulsive tertiary contractions noted throughout the entire esophagus. Extensive disordered peristalsis present. No evidence of hiatus hernia identified. No significant gastroesophageal reflux was seen during the course of the examination and on reflux views. Dual contrast and single contrast images of the stomach demonstrated a normal contour. The gastric rugal folds appear thickened, possibly from gastritis, however possibly be due to underdistention of the stomach from poor tolerance of the effervescent granules. No evidence of mass, ulceration, or other abnormality. Contrast freely passed into the gastric antrum and duodenal bulb without delay. Single and air-contrast images of the duodenal bulb demonstrate no abnormality. The duodenal sweep has a normal appearance, course, and mucosal fold appearance. No malrotation. The imaged proximal jejunum has a normal fold pattern and caliber. FLUOROSCOPY TIME: 4 minutes 4 seconds Number of Spot Images: 10 Number of Cine: 10 DOSE AREA PRODUCT: 1918 uGy-m2 (microgray-meter squared) FL/FL barium swallow IMPRESSION: 1. Trace laryngeal penetration with thick barium. No evidence of aspiration. 2. To and fro motion of the barium column with nonpropulsive tertiary contractions noted throughout the entire esophagus consistent with somewhat advanced esophageal dysmotility. The esophagus is tortuous. 3. Thickened appearance of the gastric rugal folds which may represent gastritis, however may be secondary to underdistention of the stomach from poor tolerance of the effervescent granules. 4. No hiatus hernia and no definite reflux seen. EGD 12/17/23 Findings: Larynx: Normal Esophagus: GE junction at 32 cms. Mildly tortuous esophagus with increased tertiary contractions without stricture or ring, esophagitis or Saenz's. Empiric balloon dilation of distal esophagus was performed with an 18 mm (54 F) CRE balloon x 60 seconds. Stomach: Friable appearing mucosa in the gastric body and antrum - biopsied. A few 3-4 mm benign appearing gastric polyps in the body of the stomach - biopsied. Grade 2 flap valve on retroflexed examination of the cardia. Duodenum: Normal bulb and descending duodenum Intervention: Biopsies as noted above Impression and Post Procedure Diagnosis: Endoscopy Findings: ESOPHAGUS: Dysphagia likely due to esophageal motility disorder (as noted on barium swallow) STOMACH: Gastritis and benign appearing gastric polyps Plan: Pt to schedule a FU appointment in the GI clinic with Yessy Crow NP. Above findings were reviewed with the patient's son and HCP, Neil Ramirez. A diagnosis of esophageal motility disorder was reviewed and advised to give pt soft foods, encourage her to chew it well and take sips of fluids with eating. BIOPSY Received: 12/17/23 ADDENDUM REPORT Addendum Addendum #1 Immunostain for H. pylori is non-reactive (A and B). No change is made to the diagnoses. Electronically Signed By: Art Barroso MD 12/24/23 4240 Diagnosis A. Gastric antrum, biopsy: Gastric antral mucosa with minimal chronic inactive gastritis; negative for H pylori, intestinal metaplasia and dysplasia. B. Gastric polyp: Gastric mucosa with features compatible with fundic gland polyp, and focal minimal chronic inactive inflammation; negative for H pylori, intestinal metaplasia and dysplasia Assessment & Plan Assessment & Plan (1) Esophageal dysmotility: Comment: Rather severe on barium swallow Code(s): K22.4 - Dyskinesia of esophagus Category: Medical (2) GERD (gastroesophageal reflux disease): Code(s): K21.9 - Gastro-esophageal reflux disease without esophagitis Category: Medical (3) Alzheimer's dementia without behavioral disturbance: Code(s): G30.9 - Alzheimer's disease, unspecified; F02.80 - Dementia in other diseases classified elsewhere, unspecified severity, without behavioral disturbance, psychotic disturbance, mood disturbance, and anxiety Category: Medical (4) Dysphagia: Code(s): R13.10 - Dysphagia, unspecified Category: Medical (5) Odynophagia: Code(s): R13.10 - Dysphagia, unspecified Category: Medical (6) Esophageal candidiasis: Code(s): B37.81 - Candidal esophagitis Category: Medical Plan [place] Citizen #Chris Live She does not remember the EGD, but she does not perceive any change. Her largest complaint is a salty taste in her mouth and a strange taste that she thinks bothers her esophagus. Her tongue also martel. She also has a lot of snorting and possible sinus problems. She also has poorly fitting bottom dentures. Her son who is with her today says this has been a problem for many years with the swallowing. They are aware of safe swallowing precautions, but given the patient's dementia is is unclear how well she can follow these on her own accord. She continues on protonix bid and sucralfate. ROV 4 weeks. ULTRASOUND OF THE THYROID Medications: New fluconazole (Diflucan) 200 mg PO DAILY 14 tabs 0RF 14 days B37.81 - Candidal esophagitis Coding Level of Care Code Est Pt Level 4 (42618) Diagnoses Esophageal dysmotility K22.4 GERD (gastroesophageal reflux disease) K21.9 Alzheimer's dementia without behavioral disturbance G30.9; F02.80 Dysphagia R13.10 Odynophagia R13.10 Esophageal candidiasis B37.81
[2024-05-28 15:04] VITALS: BP 157/84; PULSE 78; BMI 22.9
== END 2024-05-28 15:27 | disposition home or self-care (01) ==
PROVIDERS: PCP General Practice; Visit Provider Nurse Practitioner
DX: K22.4 Dyskinesia of esophagus (principal); K21.9 Gastro-esophageal reflux disease without esophagitis; G30.9 Alzheimer's disease, unspecified; F02.80 Dementia in other diseases classified elsewhere, unspecified severity, without behavioral disturbance, psychotic disturbance, mood disturbance, and anxiety; R13.10 Dysphagia, unspecified; B37.81 Candidal esophagitis
CPT/HCPCS: 99214

== ENCOUNTER → 2024-05-28 14:45 | Outpatient (BNVA) | payer OTHER, SELFPAY | PROVIDERS: PCP General Practice; Visit Provider Nurse Practitioner | DX: K21.9 Gastro-esophageal reflux disease without esophagitis (principal); J84.9 Interstitial pulmonary disease, unspecified; E07.9 Disorder of thyroid, unspecified; R13.10 Dysphagia, unspecified | CPT/HCPCS: 99212 ==

== ENCOUNTER 2024-06-13 19:14 | Emergency (ER) | payer OTHER, SELFPAY ==
--- NOTE | ~2024-06-13 | CT_ITS ---
EXAMINATION: CT ABDOMEN AND PELVIS WITHOUT CONTRAST CLINICAL INFORMATION: Abdominal pain. Decreased appetite. COMPARISON: CT abdomen and pelvis from 10/12/2023.. TECHNIQUE: Multidetector volumetric imaging was performed from the lung bases to the pubic without contrast. Sagittal and coronal reformatted images were obtained on the technologist workstation. This CT examination was performed using dose optimization techniques as appropriate, variously including the following: *Automated exposure control. *Adjustment of mA and/or kV according to patient size (this includes techniques or standardized protocols for targeted exams where dose is matched to indication/reason for exam; i.e. extremities or head). *Use of iterative reconstruction technique. DLP: 349 mGy-cm FINDINGS: LUNG BASES: Mild bilateral dependent atelectasis. Otherwise, no abnormalities of the visualized lung bases. Prominent global cardiac enlargement. ABDOMEN/PELVIS: Liver, Biliary Ducts, and Gallbladder: The unenhanced liver is normal in size and attenuation without focal hepatic lesions or biliary ductal dilatation. Changes of prior cholecystectomy. Pancreas: The pancreas is normal in appearance. Adrenal Glands: The adrenal glands are normal in appearance. Spleen: The spleen is normal in appearance. Kidneys and Ureters: The unenhanced kidneys are normal in size. Punctate nonobstructive stones in the lower pole of the right kidney. No left-sided nephrolithiasis. No hydronephrosis, ureterolithiasis, or hydroureter. Urinary Bladder: The urinary bladder is partially distended without focal wall thickening. No bladder calculi are demonstrated. Gastrointestinal System: The stomach is decompressed and therefore not well evaluated on this exam. The small bowel is of normal caliber. Moderate transverse, descending, and sigmoid diverticulosis. Otherwise, the colon is normal in appearance without focal wall thickening or pericolonic inflammatory change. Normal appendix. Genitourinary: No demonstrated adnexal soft tissue masses. Intra-abdominal and Retroperitoneal Spaces: Trace pelvic free fluid, likely within physiologic limits. No intra-abdominal free fluid collections or gas. No mesenteric, retroperitoneal, or inguinal lymphadenopathy. VASCULATURE: The abdominal aorta is of normal caliber with moderate calcific atherosclerotic disease. MUSCULOSKELETAL: Moderate left convex curvature of the lumbar spine. Chronic anterior wedge deformity of T12. Moderate multilevel degenerative changes of the spine. Pseudoarticulation of the left transverse process of L5 with the sequela. Chronic partially healed deformity of the right pubic ring. No lytic or sclerotic osseous lesions demonstrated. Midline infraumbilical anterior abdominal wall scar. No soft tissue masses demonstrated. CT/CT abdomen pelvis wo IV con IMPRESSION: 1. No acute CT abnormalities to explain the patient's symptoms. 2. Diverticulosis without evidence of diverticulitis. 3. Nonobstructive right-sided nephrolithiasis. 4. Prominent global cardiac enlargement. Electronically signed by: Flavio Robison DO 06/14/2024 01:28 AM EDT
--- NOTE | ~2024-06-13 | XR_ITS ---
EXAMINATION: XR CHEST CLINICAL INFORMATION: Weakness. Crackles on examination. COMPARISON: October 12, 2023. TECHNIQUE: Frontal view of the chest was obtained. FINDINGS: Lung volumes are low and the patient is rotated. The cardiac silhouette is enlarged but stable. There is apparent vascular congestion and diffuse increased markings. There is no focal lung consolidation or pleural effusions. The bony structures and the soft tissues are unremarkable. XR/XR chest 1V IMPRESSION: Low lung volumes and rotation limits evaluation. Cardiomegaly. Pulmonary vascular congestion and increased markings felt to be technical. No definitive active cardiopulmonary disease. Electronically signed by: Kev Parkinson MD 06/14/2024 02:00 AM EDT
[2024-06-13 19:44] VITALS: BP 146/68; PULSE 65; RESP 18; TEMP 36.8; O2SAT 98; BMI 22.9
--- NOTE | 2024-06-13 19:45 | ED_ITS ---
HPI - Abdominal Pain General Chief Complaint: General Medical Stated Complaint: not eating, multiple issues Time Seen by Provider: 06/13/24 21:41 History of Present Illness ED Provider: Sandeep MAY narrative: The patient is an 83-year-old female who has been feeling unwell for about 4 or 5 days. She has a apparently been complaining of abdominal discomfort. She has also been complaining of a bad taste in her mouth. She has had some intermittent nausea but no definite vomiting. No definite diarrhea. No definite fevers. No chest pain. No cough. The patient is here with her son. The patient apparently has some degree of dementia which makes her a poor historian. Related Data Home Medications ?Medication ?Instructions ?Recorded ?Confirmed cholecalciferol (vitamin D3) 50 1 cap PO QAM 01/13/22 01/13/22 mcg (2,000 unit) capsule donepezil 10 mg tablet 1 tab PO BEDTIME 01/13/22 01/13/22 mirtazapine 45 mg tablet 1 tab PO BEDTIME 01/13/22 01/13/22 sertraline 100 mg tablet 2 tab PO QAM 01/13/22 01/13/22 trazodone 50 mg tablet 0.5 tab PO BEDTIME PRN Insomnia 01/13/22 01/13/22 Previous Rx's ?Medication ?Instructions ?Recorded ondansetron 4 mg disintegrating 4 mg PO Q8H PRN nausea and 07/07/23 tablet vomiting #20 tabs sucralfate 100 mg/mL oral 20 ml PO QNOON #1,000 mL 08/08/23 suspension (Carafate) pantoprazole 40 mg tablet,delayed 40 mg PO BID #60 tabs 04/16/24 release fluconazole 200 mg tablet 200 mg PO DAILY 14 days #14 tabs 05/28/24 (Diflucan) Allergies Allergy/AdvReac Type Severity Reaction Status Date / Time acetaminophen [Percocet] Allergy Mild denies Verified 06/13/24 19:49 oxycodone [Percocet] Allergy Mild denies Verified 06/13/24 19:49 Review of Systems Review of Systems Yes all other systems are reviewed and are negative PMFSH Past Medical History Medical History Alzheimer disease Thoracic compression fracture Pubic bone fracture Closed fracture of iliac wing Closed rib fracture GERD (gastroesophageal reflux disease) HTN (hypertension) Dementia Diabetes Surgical History H/O colonoscopy History of varicose vein ligation and stripping History of hysterectomy History of cholecystectomy Family History Family History Sister Epilepsy Social History Social History Household Members: None Housing: Apartment Do you presently have visiting nurse or other home services: No Patient Tobacco Use Status: Never used Tobacco Smoked in Last 30 Days: No Use of substances other than those prescribed or required for medical reasons: No Advance Directives: Yes Advance Directives on File: Yes Advance Directives Date on File: 02/06/22 service: No Current occupational status: disabled Physical Exam ED Vital Signs: Vital Signs - 24 hr 06/13/24 19:44 06/13/24 21:23 06/13/24 22:40 Temperature 98.3 F 98.3 F Pulse Rate 65 59 53 Respiratory Rate 18 16 16 Blood Pressure 146/68 H 146/69 H 125/57 L Pulse Oximetry 98 98 97 Oxygen Delivery Method Room Air Room Air Room Air BMI result Body Mass Index 22.9 Const Other: The patient is a frail looking 83-year-old who was awake and alert. She looks chronically ill but she does not appear in definite overt distress. HENMT Other: Face is symmetrical. Mucous membranes are not obviously dry. Eyes Other: Pupils are round equal, conjunctivae clear, extraocular movements intact Neck Neck: Yes no JVD Resp Other: The patient had crackles at both bases but she was not showing any increased work of breathing. Cardio Rate: regular rate Rhythm: regular rhythm Heart sounds: S1 normal heart sound present and S2 normal heart sound present GI Other: The abdomen was soft. She seemed to have some diffuse tenderness but no focal tenderness. No rebound or guarding. Skin Other: Skin is pale and dry Neuro Other: The patient is awake and alert but there may be an element of dementia. Face is symmetrical. Eye movements intact. Speech seems clear. She moves her extremities symmetrically. Extrem Other: No peripheral edema. Course Course Course Narrative: This is an RME performed by S. Barcome, RN IMCU: Additional HPI, ROS, PE not included below will be deferred to primary provider. Patient is an 83-year-old female who presents emergency department for evaluation of diffuse abdominal pain worse on the upper right (acute on chronic), poor appetite, dizziness and nausea. Patient's family member admits to having history of stomach issues can not elaborate further. He states that when she begins eating after a few bites she stops reporting that she feels full and can not tolerate any further. She was evaluated by gastroenterology 05/28/2024 with plan of action to have EGD, barium swallow, an ultrasound of her thyroid as on clinical exam there was asymmetry during that office visit, when asked, patient and her son report that they dizziness and nausea is new since that visit which prompted them to come to emergency department. Plan: Serum labs, EKG, viral serologies Medical Decision Making Medical Decision Making MDM Narrative: The patient is an 83-year-old woman who was brought to the hospital because her family was concerned that she has been eating less over the last 4 days. The patient is hard to evaluate because she likely has some degree of dementia and is not able to give much in the way of details. She keeps talking about chronic abdominal pains that she has had since she had some kind of an abdominal operation. I think this was quite remote. The patient's BUN and creatinine were both somewhat elevated compared to her most recent labs but she has had similarly elevated BUN and creatinines in the past. Her potassium was 5.6. Workup was otherwise fairly unremarkable. Although my clinical impression was that she was dry she has crackles on exam and a high BNP. Nevertheless she was given 500 mL of crystalloid and a dose of Lokelma because of her potassium. I spoke to the hospitalist about possibly hospitalizing the patient. When I proposed hospitalization to the patient however she did not wish to be hospitalized. She said that she wanted to go home. The son was frustrated that the patient wanted to go home but ultimately decided that he would follow her wishes. I asked the son to try to make a prompt follow up appointment with her PCP. The patient should return if worse. Lab Data 06/13/24 20:38 06/13/24 20:38 Labs: Lab Results 06/13/24 06/13/24 06/13/24 Range/Units 20:35 20:38 21:30 WBC 6.1 (4.8-10.8) X10*3/uL RBC 3.88 L (4.20-5.50) X10*6/uL Hgb 12.1 (12.0-16.0) g/dl Hct 36.6 L (37.0-47.0) % MCV 94.3 (80.0-98.0) fL MCH 31.2 (27.0-33.0) pg MCHC 33.1 (31.0-35.0) g/dl RDW 12.3 (11.0-16.0) % Plt Count 143 L (160-400) X10*3/uL MPV 10.2 (9.4-12.3) fL Immature Gran % (Auto) 0.2 (0.0-0.4) % Neut % (Auto) 60.5 (45-73) % Lymph % (Auto) 30.3 (20-40) % [place] % (Auto) 7.7 (2-11) % Eos % (Auto) 1.0 (0-4) % Baso % (Auto) 0.3 (0-2) % Lymph # (Auto) 1.8 (1.2-4.9) X10*3/uL [place] # (Auto) 0.5 (0.1-1.2) X10*3/uL Eos # (Auto) 0.1 (0.0-0.4) X10*3/uL Baso # (Auto) 0.0 (0.0-0.2) X10*3/uL Abs Immat Gran (auto) 0.01 (0.00-0.03) X10*3/uL Absolute Neuts (auto) 3.7 (2.0-8.3) x10*3/uL Absolute Nucleated RBC 0.000 (0.0-0.012) X10*3/uL Nucleated RBC % (auto) 0.0 (0.0-0.2) /100WBC PT 10.8 L (10.9-12.4) SEC INR 0.9 (0.9-1.1) Sodium 140 (135-145) mmol/L Potassium 5.6 H D (3.3-5.1) mmol/L Chloride 103 (96-108) mmol/L Carbon Dioxide 29 (22-29) mmol/L Anion Gap 14 (12-20) BUN 28 H (9-16) mg/dL Creatinine 1.31 (0.5-1.4) mg/dL Estim Creat Clear Calc 21.3 Estimated GFR 39 Random Glucose 116 H (60-115) mg/dL Calcium 9.6 D (8.4-10.2) mg/dL Magnesium 2.2 (1.6-2.6) mg/dL Total Bilirubin 0.3 (0.0-1.0) mg/dL AST 32 H (5-31) U/L ALT 17 (0-31) U/L Alkaline Phosphatase 62 (39-117) U/L Troponin I High Sens 18.6 H D (<3.5-17.0) ng/L B-Natriuretic Peptide 676 H (<100) pg/mL Total Protein 7.6 (6.5-8.0) g/dL Albumin 4.2 (3.5-5.0) g/dL Lipase 51 (8-78) U/L TSH 2.95 (0.32-4.0) uIU/mL Urine Color Dark Yellow Urine Appearance Clear Urine pH 6.0 (5.0-9.0) Ur Specific Robinson 1.025 (1.005-1.025) Urine Protein Negative (Neg-Trace) mg/dL Urine Glucose (UA) Negative (Negative) mg/dL Urine Ketones Trace (Negative) mg/dL Urine Blood Negative (Negative) Urine Nitrite Negative (Negative) Ur Leukocyte Esterase Trace H (Negative) Urine RBC 0-2 (0-2) /HPF Urine WBC 0-5 (0-5) /HPF Ur Squamous Epith Cells 3-5 (0-2) /HPF Urine Bacteria None Seen (None Seen) Hyaline Casts 0-2 (0-2) /LPF Influenza Type A (PCR) NEGATIVE (Negative) Influenza Type B (PCR) NEGATIVE (Negative) RSV RNA Qual (PCR) NEGATIVE (Negative) SARS-CoV-2 RNA (RT-PCR) NEGATIVE (Negative) 06/14/24 Range/Units 00:14 WBC (4.8-10.8) X10*3/uL RBC (4.20-5.50) X10*6/uL Hgb (12.0-16.0) g/dl Hct (37.0-47.0) % MCV (80.0-98.0) fL MCH (27.0-33.0) pg MCHC (31.0-35.0) g/dl RDW (11.0-16.0) % Plt Count (160-400) X10*3/uL MPV (9.4-12.3) fL Immature Gran % (Auto) (0.0-0.4) % Neut % (Auto) (45-73) % Lymph % (Auto) (20-40) % [place] % (Auto) (2-11) % Eos % (Auto) (0-4) % Baso % (Auto) (0-2) % Lymph # (Auto) (1.2-4.9) X10*3/uL [place] # (Auto) (0.1-1.2) X10*3/uL Eos # (Auto) (0.0-0.4) X10*3/uL Baso # (Auto) (0.0-0.2) X10*3/uL Abs Immat Gran (auto) (0.00-0.03) X10*3/uL Absolute Neuts (auto) (2.0-8.3) x10*3/uL Absolute Nucleated RBC (0.0-0.012) X10*3/uL Nucleated RBC % (auto) (0.0-0.2) /100WBC PT (10.9-12.4) SEC INR (0.9-1.1) Sodium (135-145) mmol/L Potassium (3.3-5.1) mmol/L Chloride (96-108) mmol/L Carbon Dioxide (22-29) mmol/L Anion Gap (12-20) BUN (9-16) mg/dL Creatinine (0.5-1.4) mg/dL Estim Creat Clear Calc Estimated GFR Random Glucose (60-115) mg/dL Calcium (8.4-10.2) mg/dL Magnesium (1.6-2.6) mg/dL Total Bilirubin (0.0-1.0) mg/dL AST (5-31) U/L ALT (0-31) U/L Alkaline Phosphatase (39-117) U/L Troponin I High Sens 18.9 H (<3.5-17.0) ng/L B-Natriuretic Peptide (<100) pg/mL Total Protein (6.5-8.0) g/dL Albumin (3.5-5.0) g/dL Lipase (8-78) U/L TSH (0.32-4.0) uIU/mL Urine Color Urine Appearance Urine pH (5.0-9.0) Ur Specific Robinson (1.005-1.025) Urine Protein (Neg-Trace) mg/dL Urine Glucose (UA) (Negative) mg/dL Urine Ketones (Negative) mg/dL Urine Blood (Negative) Urine Nitrite (Negative) Ur Leukocyte Esterase (Negative) Urine RBC (0-2) /HPF Urine WBC (0-5) /HPF Ur Squamous Epith Cells (0-2) /HPF Urine Bacteria (None Seen) Hyaline Casts (0-2) /LPF Influenza Type A (PCR) (Negative) Influenza Type B (PCR) (Negative) RSV RNA Qual (PCR) (Negative) SARS-CoV-2 RNA (RT-PCR) (Negative) Independent Interpretation I performed an independent interpretation of an: EKG Interpretation: EKG at 20:39 shows normal sinus rhythm at 60 beats per minute. There is a left axis deviation. There is LVH with repolarization abnormality. EKG is fairly similar to an EKG from 10/09/2023. Medications Administered Discontinued Medications Generic Name Dose Route Start Last Admin Trade Name Freq PRN Reason Stop Dose Admin Sodium Chloride 500 mls @ 500 mls/hr 06/14/24 00:15 06/14/24 01:14 Ns IV 06/14/24 01:14 Infused .Q1H JOSE FRANCISCO Infusion Sodium Zirconium Cyclosilicate 10 gm 06/14/24 00:07 06/14/24 00:23 Sodium Zirconium Cyclosilicate 10 Gm Powd.Pack PO 06/14/24 00:08 10 gm ONCE ONE Administration Discharge Plan Discharge Clinical Impression: Weakness, Abdominal pain, Decreased appetite Patient Disposition: Home, Self-Care Additional Instructions: Please continue her regular medications. Please contact her regular doctor on Sunday for an appointment this coming week. If she seems worse please return to the emergency room for further evaluation. Prescriptions: No Action pantoprazole 40 mg tablet,delayed release (DR/EC) 40 mg PO BID Qty: 60 3RF trazodone 50 mg tablet 0.5 tab PO BEDTIME PRN (Reason: Insomnia) donepezil 10 mg tablet 1 tab PO BEDTIME sertraline 100 mg tablet 2 tab PO QAM mirtazapine 45 mg tablet 1 tab PO BEDTIME cholecalciferol (vitamin D3) 50 mcg (2,000 unit) capsule 1 cap PO QAM ondansetron 4 mg tablet,disintegrating 4 mg PO Q8H PRN (Reason: nausea and vomiting) Qty: 20 0RF sucralfate [Carafate] 100 mg/mL suspension 20 ml PO QNOON Qty: 1000 3RF fluconazole [Diflucan] 200 mg tablet 200 mg PO DAILY 14 Days Qty: 14 0RF Referrals: Marisabel Delaney MD [Primary Care Provider] - (Weakness, chronic abdominal pain) Interventions: ED Discharge Assessment Last Done: 06/14/24 03:09 Print Language: Ukrainian
--- NOTE | 2024-06-13 19:52 | ECG_ITS ---
Test Reason : DIZZINESS Blood Pressure : / mmHG Vent. Rate : 060 BPM Atrial Rate : 060 BPM P-R Int : 184 ms QRS Dur : 100 ms QT Int : 436 ms P-R-T Axes : 023 -33 141 degrees QTc Int : 436 ms Normal sinus rhythm Left axis deviation Left ventricular hypertrophy with repolarization abnormality ( R in aVL , Luan product , Romhilt-Nieto ) Abnormal ECG When compared with ECG of 12-OCT-2023 11:43, No significant change was found Referred By: Lia Jamison Electronically Signed By:Gera Ortiz
[2024-06-13 20:43] LABS: MANUAL DIFF FLAG NO
[2024-06-13 20:45] LABS: Basophils Percent Auto 0.3 % (0-2); Eosinophils Absolute Auto 0.1 X10*3/uL (0.0-0.4); Hematocrit 36.6 % (37.0-47.0); Hemoglobin 12.1 g/dl (12.0-16.0); Imm Gran Abs Auto 0.01 X10*3/uL (0.00-0.03); Imm Gran Pct Auto 0.2 % (0.0-0.4); Lymphocytes Absolute Auto 1.8 X10*3/uL (1.2-4.9); Lymphocytes Percent Auto 30.3 % (20-40); Mean Corpuscular HGB Conc 33.1 g/dl (31.0-35.0); Mean Corpuscular Hemoglobin 31.2 pg (27.0-33.0); Mean Corpuscular Volume 94.3 fL (80.0-98.0); Mean Platelet Volume 10.2 fL (9.4-12.3); Monocytes Absolute Auto 0.5 X10*3/uL (0.1-1.2); Monocytes Percent Auto 7.7 % (2-11); Neutrophils Absolute Auto 3.7 x10*3/uL (2.0-8.3); Neutrophils Percent Auto 60.5 % (45-73); Platelet Count 143 X10*3/uL (160-400); Red Blood Count 3.88 X10*6/uL (4.20-5.50); Red Cell Distribution Width 12.3 % (11.0-16.0); White Blood Count 6.1 X10*3/uL (4.8-10.8)
[2024-06-13 20:51] LABS: INTERNATIONAL NORM RATIO 0.9 (0.9-1.1); Prothrombin Time 10.8 SEC (10.9-12.4)
[2024-06-13 21:04] LABS: B Type Natriuretic Peptide 676 pg/mL (<100)
[2024-06-13 21:06] LABS: Troponin-I High Sensitivity 18.6 ng/L (<3.5-17.0)
[2024-06-13 21:07] LABS: Alanine Aminotransferase 17 U/L (0-31); Albumin Level 4.2 g/dL (3.5-5.0); Alkaline Phosphatase 62 U/L (39-117); Anion Gap 14 (12-20); Bilirubin Total 0.3 mg/dL (0.0-1.0); Blood Urea Nitrogen 28 mg/dL (9-16); Calcium 9.6 mg/dL (8.4-10.2); Carbon Dioxide 29 mmol/L (22-29); Chloride 103 mmol/L (96-108); Creatinine Clr Calc Pharmacy 21.3; Estimated Glomerular Filt Rate 39; Glucose Random 116 mg/dL (60-115); Lipase 51 U/L (8-78); Magnesium 2.2 mg/dL (1.6-2.6); Potassium 5.6 mmol/L (3.3-5.1); Sodium 140 mmol/L (135-145); Total Protein 7.6 g/dL (6.5-8.0)
[2024-06-13 21:12] LABS: Aspartate Amino Transferase 32 U/L (5-31)
[2024-06-13 21:22] LABS: TSH reflex Free T4 2.95 uIU/mL (0.32-4.0)
[2024-06-13 21:23] VITALS: BP 146/69; PULSE 59; RESP 16; O2SAT 98
[2024-06-13 21:37] LABS: Appearance Urine Clear; Color Urine Dark Yellow; Glucose Urine UA Negative (Negative); Leukocyte Esterase Urine Trace (Negative); Nitrite Urine Negative (Negative); Specific Gravity - Urine 1.025 (1.005-1.025); UMIC TRIGGER UACC YES; Urine Blood Negative (Negative); Urine Ketones Trace mg/dL (Negative); Urine Protein Negative (Neg-Trace)
[2024-06-13 21:44] LABS: Bacteria Urine None Seen (None Seen); Hyaline Casts Urine 0-2 /LPF (0-2); RBC Urine 0-2 /HPF (0-2); WBC Urine 0-5 /HPF (0-5)
--- OUTSIDE RECORDS SUMMARY | 2024-06-13 21:46 | XMS_ITS | Patient Health Record ---
Author Organization [facility] Address [address] [place] [address] Care Team Providers Care Gse Mechanic Name Role Phone Marisabel Delaney M.D. Primary Care Provider UnaFahad Juares Unavailable [phone] REASON FOR REFERRAL No Information SOCIAL HISTORY Sex Assigned At : Social History Observation Description Sex Assigned At Unknown PLAN OF TREATMENT No Information Insurance Providers Payer Name Payer Address Payer Phone Subscriber Number Group Number Insured Name Patient Relationship to Insured Coverage Start Date Coverage End Date [facility] [address] [place] [address] [id number] JEFFERY LOREDO Self - patient is the insured
[2024-06-13 21:54] LABS: Influenza A PCR NEGATIVE (Negative); Influenza B PCR NEGATIVE (Negative); Resp Syncy Virus RNA Qual PCR NEGATIVE (Negative); SARS COV2 PCR INHOUSE NEGATIVE (Negative)
[2024-06-13 22:40] VITALS: BP 125/57; PULSE 53; RESP 16; TEMP 36.8; O2SAT 97
[2024-06-14] MEDS: 0.9 % Sodium Chloride 500 ML IV (00:19)
[2024-06-14] MEDS: Sodium Zirconium Cyclosilicate 10 GM POWD.PACK PO (00:23)
[2024-06-14 00:37] LABS: Troponin-I High Sensitivity 18.9 ng/L (<3.5-17.0)
[2024-06-14 03:09] VITALS: BP 125/57; PULSE 53; RESP 16; TEMP 36.8; O2SAT 97
== END 2024-06-14 03:10 | disposition home or self-care (01) ==
PROVIDERS: Nurse Practitioner Family; Emergency Provider Emergency Medicine; PCP General Practice
DX: R53.1 Weakness (principal); R10.2 Pelvic and perineal pain; R42 Dizziness and giddiness; R94.31 Abnormal electrocardiogram [ECG] [EKG]; R06.02 Shortness of breath; R11.0 Nausea; Z79.899 Other long term (current) drug therapy; Z03.818 Encounter for observation for suspected exposure to other biological agents ruled out
CPT/HCPCS: 0241U; 36415; 71045; 74176; 80053; 81001; 83690; 83735; 83880; 84443; 84484; 85025; 85610; 93005; 96360; 99284

== ENCOUNTER → 2024-06-13 19:52 | Outpatient (BNV) | payer OTHER, SELFPAY | PROVIDERS: Emergency Provider Emergency Medicine; PCP General Practice; Visit Provider Internal Medicine Cardiovascular Disease | DX: R94.31 Abnormal electrocardiogram [ECG] [EKG] (principal) | CPT/HCPCS: 93010 ==

== ENCOUNTER 2024-06-23 13:29 | Outpatient (AMB) | payer OTHER, SELFPAY ==
--- OUTSIDE RECORDS SUMMARY | 2024-06-23 13:47 | XMS_ITS | Patient Health Record ---
Author Organization [facility] Address [address] [place] [address] Care Team Providers Care Nutrition Associate Name Role Phone Marisabel Delaney M.D. Primary Care Provider UnaFahad Juares Unavailable [phone] REASON FOR REFERRAL No Information SOCIAL HISTORY Sex Assigned At : Social History Observation Description Sex Assigned At Unknown PLAN OF TREATMENT No Information Insurance Providers Payer Name Payer Address Payer Phone Subscriber Number Group Number Insured Name Patient Relationship to Insured Coverage Start Date Coverage End Date [facility] [address] [place] [address] [id number] JEFFERY LOREDO Self - patient is the insured
[2024-06-23 13:53] VITALS: BMI 23.0
--- NOTE | 2024-06-23 13:53 | MHC.AMNUTRGE ---
VS Expanded 06/23/24 13:53 Height 4 ft 11 in Weight 113 lb 15.664 oz BMI 23.0 Intake Visit Reasons: Malnutrition Allergies acetaminophen [Percocet] Allergy (Mild, Verified 06/13/24 19:49) denies oxycodone [Percocet] Allergy (Mild, Verified 06/13/24 19:49) denies Nutrition Presentation Details: Pt presents for MNT f/u for malnutrition, Pt has Alzheimer's dementia Pt presents with 2 sons during this appt. Son reports Pt is losing appetite, has little amount of food , prefers to eat sweets. Has 4 oz of fluids 4-6 times a day (coffee, water, juice, milk) [phone] (Neil Ramirez, son) BS Monitoring Most Recent Diabetes Results: Creatinine 1.31 mg/dL (0.5-1.4) 06/13/24 Blood Urea Nitrogen 28 mg/dL (9-16) H 06/13/24 Sodium 140 mmol/L (135-145) 06/13/24 Potassium 5.6 mmol/L (3.3-5.1) H 06/13/24 Chloride 103 mmol/L (96-108) 06/13/24 Carbon Dioxide 29 mmol/L (22-29) 06/13/24 Calcium 9.6 mg/dL (8.4-10.2) 06/13/24 AST 32 U/L (5-31) H 06/13/24 ALT 17 U/L (0-31) 06/13/24 Total Protein 7.6 g/dL (6.5-8.0) 06/13/24 Albumin 4.2 g/dL (3.5-5.0) 06/13/24 [facility] Medical History Alzheimer disease Thoracic compression fracture Pubic bone fracture Closed fracture of iliac wing Closed rib fracture GERD (gastroesophageal reflux disease) HTN (hypertension) Dementia Diabetes Surgical History H/O colonoscopy History of varicose vein ligation and stripping History of hysterectomy History of cholecystectomy Family History Sister Epilepsy Social History Household Members: None Housing: Apartment Do you presently have visiting nurse or other home services: No Patient Tobacco Use Status: Never used Tobacco Advance Directives Date on File: 02/06/22 service: No Current occupational status: disabled Assessment & Plan Assessment & Plan (1) Malnourished: Comment: Per Pt's fam , Pt wt at 112-115lbs in 07/2023 Code(s): E46 - Unspecified protein-calorie malnutrition Category: Medical Plan: PCP: May Recommend prescribing Ensure high protein shakes for 2 a day related to lack of appetite with Alzheimer' dementia dx est kcal needs as per 25 kcal /kg bw: 1500 est prot as per 1 g/kg bw: 59 g/d est fluid needs as per 25 ml/kg bw: 1500 Review : fluid intake, hydration with nutrient dense beverages Protein sources of foods and meal prep modifications Patient Instructions: Recommend High protein ensure (vanilla and strawberry preferred) 2 a day in between meals HAve snacks readily available : like peanut butter crackers, cupcakes (made with milk vs water as example) Provide flavored milk or fruit juices with the meals Coding Level of Care Code Nutr Indiv Subseq (69696) Diagnoses Malnourished E46 Time Spent (min) 20
== END 2024-06-23 14:24 | disposition home or self-care (01) ==
PROVIDERS: PCP General Practice; Visit Provider Dietitian, Registered
DX: E46 Unspecified protein-calorie malnutrition (principal)

== ENCOUNTER → 2024-06-23 13:37 | Outpatient (BNVA) | payer OTHER, SELFPAY | PROVIDERS: PCP General Practice; Visit Provider Dietitian, Registered | DX: E46 Unspecified protein-calorie malnutrition (principal); G30.9 Alzheimer's disease, unspecified; F02.80 Dementia in other diseases classified elsewhere, unspecified severity, without behavioral disturbance, psychotic disturbance, mood disturbance, and anxiety; Z71.3 Dietary counseling and surveillance | CPT/HCPCS: 97803 ==

== ENCOUNTER 2024-08-18 14:32 | Outpatient (REF) | payer OTHER, SELFPAY ==
--- NOTE | ~2024-08-18 | US_ITS ---
EXAMINATION: US EXTRACRANIAL CAROTID DUPLEX, BILATERAL CLINICAL INFORMATION: Pain in sigmoid colon position over the right carotid artery, headaches. COMPARISON: None available. TECHNIQUE: Real-time ultrasound and Doppler techniques (integrating B-mode 2-D vascular images, Doppler spectral analysis and color-flow Doppler imaging) were utilized to interrogate the extracranial carotid arteries, the vertebral arteries and proximal subclavian arteries bilaterally. The degree of stenosis is determined by criteria similar to NASCET. FINDINGS: Right Side: 1. There is no atherosclerotic plaque seen in the bifurcation/proximal ICA region. 2. The common carotid artery PSV proximally is 82 cm/s and distally 49 cm/s. 3. The proximal internal carotid artery velocities are 34 cm/s systolic and 11 cm/s diastolic. 4. The proximal external carotid artery PSV is 48 cm/s. 5. The vertebral artery shows antegrade flow. 6. The subclavian artery waveforms are normal. There is mild tortuous and ectatic right brachiocephalic and proximal common carotid artery. Left Side: 1. There is no atherosclerotic plaque seen in the bifurcation/proximal ICA region. 2. The common carotid artery PSV proximally is 62 cm/s and distally 63 cm/s. 3. The proximal internal carotid artery velocities are 37 cm/s systolic and 13 cm/s diastolic. 4. The proximal external carotid artery PSV is 37 cm/s. 5. The vertebral artery shows antegrade flow. 6. The subclavian artery waveforms are normal. US/US carotid duplex BI IMPRESSION: 1. RIGHT: No hemodynamically significant stenosis. 2. LEFT: No hemodynamically skin stenosis. 3. There is no change in the category severity of disease when compared to the previous study dated.. Electronically signed by: Mateus Denney MD 08/19/2024 01:39 PM EST
--- OUTSIDE RECORDS SUMMARY | 2024-08-18 14:35 | XMS_ITS | Patient Health Record ---
Author Organization [facility] Address [address] [place] [address] Care Team Providers Care Installation Tech Name Role Phone Marisabel Delaney M.D. Primary Care Provider UnaFahad Juares Unavailable [phone] REASON FOR REFERRAL No Information SOCIAL HISTORY Sex Assigned At : Social History Observation Description Sex Assigned At Unknown PLAN OF TREATMENT No Information Insurance Providers Payer Name Payer Address Payer Phone Subscriber Number Group Number Insured Name Patient Relationship to Insured Coverage Start Date Coverage End Date [facility] [address] [place] [address] [id number] JEFFERY LOREDO Self - patient is the insured
== END 2024-08-18 14:33 | disposition home or self-care (01) ==
LOC: HO.HMGCX 14:32
PROVIDERS: PCP General Practice; Visit Provider General Practice
DX: M54.2 Cervicalgia (principal); R09.89 Other specified symptoms and signs involving the circulatory and respiratory systems; R51.9 Headache, unspecified
CPT/HCPCS: 93880

== ENCOUNTER → 2024-08-18 14:41 | Outpatient (BNV) | payer OTHER, SELFPAY | PROVIDERS: PCP General Practice; Visit Provider Radiology Diagnostic Radiology | DX: I77.71 Dissection of carotid artery (principal) | CPT/HCPCS: 93880 ==

== ENCOUNTER 2024-08-31 13:46 | Emergency (ER) | payer OTHER, SELFPAY ==
--- NOTE | ~2024-08-31 | XR_ITS ---
CLINICAL HISTORY: pain Radiographs of the cervical spine, four views Comparison: CT/SR - CT CERVICAL SPINE WO CON - 01/13/22 11:21 EDT Findings: Mild multilevel anterolisthesis and retrolisthesis, degenerative. No fracture. The vertebral body heights are preserved. There is severe intervertebral disc space narrowing C5/C6 and C6/C7. Otherwise mild intervertebral disc space narrowing. [id number] multilevel endplate osteophytosis and uncovertebral joint and facet hypertrophy. No prevertebral soft tissue swelling. Impression: No acute findings. Severe lower cervical degenerative change. This document has been electronically signed by: Mita Brice MD on 08/31/2024 16:13:51
--- NOTE | ~2024-08-31 | XR_ITS ---
CLINICAL HISTORY: pain Radiographs of the right shoulder, 3 views Comparison: 05/14/18 Findings: No fracture or dislocation. Narrowed acromiohumeral interval. Moderate degenerative change. Osteophytosis at the superior aspect of the humeral head best seen on the Grashey view was also present on the prior study. Bone mineralization is decreased. No soft tissue swelling. Impression: No acute findings. Moderate degenerative change. Narrowed acromiohumeral interval likely indicates rotator cuff pathology. This document has been electronically signed by: Mita Brice MD on 08/31/2024 16:16:19
--- NOTE | 2024-08-31 14:29 | ED_ITS ---
HPI - General Adult General Chief complaint: General Medical Stated complaint: Neck/back pain Time Seen by Provider: 08/31/24 18:22 Source: patient and family Limitations: language barrier and other (Dementia) History of Present Illness ED Provider: Susannah Garzon PA-C HPI narrative: 83-year-old female with a history of acute on chronic neck and right shoulder pain, polyradiculopathy, Alzheimer's dementia, interstitial lung disease, dysphagia, esophageal dysmotility, hyperlipidemia, states she chronic kidney disease, cardiomyopathy with heart failure presents with neck and right shoulder pain. When asked how long the patient has been having discomfort, she can not give me a concise duration of time. Patient indicates she has pain over posterior and right lateral neck that radiates to the right shoulder. Pain worse with movement and movement of right upper extremity. No new activity, heavy lifting or trauma. Denies paresthesia, numbness or weakness of right upper extremity. Denies slurred speech, facial droop, visual changes or headache. Related Data Home Medications ?Medication ?Instructions ?Recorded ?Confirmed cholecalciferol (vitamin D3) 50 1 cap PO QAM 01/13/22 01/13/22 mcg (2,000 unit) capsule donepezil 10 mg tablet 1 tab PO BEDTIME 01/13/22 01/13/22 mirtazapine 45 mg tablet 1 tab PO BEDTIME 01/13/22 01/13/22 sertraline 100 mg tablet 2 tab PO QAM 01/13/22 01/13/22 trazodone 50 mg tablet 0.5 tab PO BEDTIME PRN Insomnia 01/13/22 01/13/22 ibuprofen 200 mg capsule (Advil 200 mg PO Q6H PRN 06/25/24 Liqui-Gel) lidocaine 5 % topical patch 1 patch topical DAILY 06/25/24 Previous Rx's ?Medication ?Instructions ?Recorded ondansetron 4 mg disintegrating 4 mg PO Q8H PRN nausea and 07/07/23 tablet vomiting #20 tabs sucralfate 100 mg/mL oral 20 ml PO QNOON #1,000 mL 08/08/23 suspension (Carafate) pantoprazole 40 mg tablet,delayed 40 mg PO BID #60 tabs 08/15/24 release methocarbamol 500 mg tablet 500 mg PO BEDTIME PRN pain, 01/12/25 moderate #7 tabs methylprednisolone 4 mg tablets in 4 mg PO QAM #1 ea 08/31/24 a dose pack (Medrol (Ricardo)) Allergies Allergy/AdvReac Type Severity Reaction Status Date / Time acetaminophen [Percocet] Allergy Mild denies Verified 08/31/24 14:34 oxycodone [Percocet] Allergy Mild denies Verified 08/31/24 14:34 Review of Systems Review of Systems: Yes all other systems are reviewed and are negative Constitutional: Constitutional: Denies fever(s) and Reports headache(s) ENT: Denies dizziness, Reports headache(s) and Reports neck pain Cardiovascular: Cardiovascular: Denies chest pain and Denies dyspnea Respiratory: Respiratory: Denies dyspnea Gastrointestinal: Gastrointestinal: Denies nausea and Denies vomiting Musculoskeletal: Musculoskeletal: Reports arthralgias, Denies joint swelling, Reports neck pain, Denies numbness, Reports radiating pain into limb and Denies tingling Neurologic: Denies dizziness, Reports headache(s), Denies numbness, Denies tingling and Denies paresthesias [facility] Past Medical History Attestation statement: The following information was validated with the patient. Medical History Alzheimer disease Thoracic compression fracture Pubic bone fracture Closed fracture of iliac wing Closed rib fracture GERD (gastroesophageal reflux disease) HTN (hypertension) Dementia Diabetes Surgical History H/O colonoscopy History of varicose vein ligation and stripping History of hysterectomy History of cholecystectomy Family History Family History Sister Epilepsy Social History Social History Household Members: None Housing: Apartment Do you presently have visiting nurse or other home services: No Patient Tobacco Use Status: Never used Tobacco Smoked in Last 30 Days: No Use of substances other than those prescribed or required for medical reasons: No Advance Directives: Yes Advance Directives on File: Yes Advance Directives Date on File: 02/06/22 Do you have a plan to hurt others: No Plan service: No Current occupational status: disabled Physical Exam ED Vital Signs: Vital Signs - 24 hr 08/31/24 14:31 08/31/24 18:00 Temperature 97.8 F Pulse Rate 73 58 Respiratory Rate 18 16 Blood Pressure 140/71 H 144/67 H Pulse Oximetry 98 98 Oxygen Delivery Method Room Air Room Air BMI result Body Mass Index 22.7 Const Other: Alert, overall well-appearing Orientation/consciousness: oriented to person and oriented to place Neck Other: Soft supple, full range of motion, no meningeal signs Resp Other: Nonlabored respiration Cardio Other: Normal peripheral perfusion Skin Other: Warm dry no rash Neuro General: oriented to person, oriented to place, no focal motor deficits and CN's II-XI intact bilaterally Extrem Other: Strength 5/5 bilateral upper extremities, no swelling or erythema noted over the right shoulder joint, she is able to perform range of motion that is limited to some degree Psych Other: Cooperative Course Course Course Narrative: This is an RME performed by Izzy Jamison CNP: Additional HPI, ROS, PE not included below will be deferred to primary provider. Patient is an 83-year-old female who presents to the emergency department with her son for evaluation. Patient is a experiencing pain to the right lateral neck and right shoulder with onset 6-7 months ago. Son denies having any radiographic imaging obtained in the past. She was seen ?in a clinic? and given a cream to apply to the area but her pain continues to increase. Denies numbness or tingling to the right upper extremity. No associated chest pain or shortness of breath. Plan: XR cervical spine and shoulder Medications Administered Discontinued Medications Generic Name Dose Route Start Last Admin Trade Name Freq PRN Reason Stop Dose Admin Ketorolac Tromethamine 15 mg 08/31/24 18:46 08/31/24 18:55 Ketorolac Tromethamine 15 Mg/Ml Vial IM 08/31/24 18:47 15 mg ONCE ONE Administration Methocarbamol 500 mg 08/31/24 18:46 08/31/24 19:01 Methocarbamol 500 Mg Tablet PO 08/31/24 18:47 500 mg ONCE ONE Administration Medical Decision Making Medical Decision Making [facility] Narrative: 83-year-old female with a history of acute on chronic neck and right shoulder pain, polyradiculopathy, Alzheimer's dementia, interstitial lung disease, dysphagia, esophageal dysmotility, hyperlipidemia, states she chronic kidney disease, cardiomyopathy with heart failure presents with neck and right shoulder pain. When asked how long the patient has been having discomfort, she can not give me a concise duration of time. Patient indicates she has pain over posterior and right lateral neck that radiates to the right shoulder. Pain worse with movement and movement of right upper extremity. No new activity, heavy lifting or trauma. Denies paresthesia, numbness or weakness of right upper extremity. Denies slurred speech, facial droop, visual changes or headache. Problem: Age, acute on chronic pain, dementia History: Per patient which is limited and her son I have considered the following differential diagnoses: Compression fracture, cervical radiculopathy, VAD, CVA, dislocation, septic joint Plan: X-rays obtained from triage, the patient has a degenerative changes including evidence of rotator cuff pathology. She will need to follow up with her primary care provider and the orthopedic service. We will send with an anti-inflammatory and a muscle relaxant. The patient has not sustained any trauma, fracture/dislocation least likely. Thought about VAD, however, there was no preceding heavy lifting injury and she has no neurologic deficits. Thought about CVA, but again, she has no neurologic deficits. Also thought about septic joint, however the patient does have retained range of motion there was also no swelling, warmth or erythema over the shoulder joint. I have independently reviewed the following tests: X-ray right shoulder: Findings: No fracture or dislocation. Narrowed acromiohumeral interval. Moderate degenerative change. Osteophytosis at the superior aspect of the humeral head best seen on the Grashey view was also present on the prior study. Bone mineralization is decreased. No soft tissue swelling. Impression: No acute findings. Moderate degenerative change. Narrowed acromiohumeral interval likely indicates rotator cuff pathology. This document has been electronically signed by: Mita Brice MD on 08/31/2024 16:16:19 X-ray cervical spine:indings: Mild multilevel anterolisthesis and retrolisthesis, degenerative. No fracture. The vertebral body heights are preserved. There is severe intervertebral disc space narrowing C5/C6 and C6/C7. Otherwise mild intervertebral disc space narrowing. [id number] multilevel endplate osteophytosis and uncovertebral joint and facet hypertrophy. No prevertebral soft tissue swelling. Impression: No acute findings. Severe lower cervical degenerative change. This document has been electronically signed by: Mita Brice MD on 08/31/2024 16:13:51 Discharge Plan Discharge Clinical Impression: Cervical spine arthritis, Rotator cuff arthropathy of right shoulder Patient Disposition: Home, Self-Care Instructions: Osteoarthritis (ED) Additional Instructions: 3 she revealed that you have significant degenerative changes of your shoulder that involve the rotator cuff. You also have significant arthritic changes of your cervical spine. You need to follow up with your primary care provider, they will likely refer you to an orthopedic service, you may require joint injections. In the meantime, use the Medrol Dosepak, this is a steroid and an anti-inflammatory. Take this medication in the morning, it is only taken once a day. Follow the package instructions. Use the methocarbamol, this is a muscle relaxant, at night to help you sleep. It will make you drowsy, do not drive or operate machinery while taking the medication. Again, it should be used at nighttime prior to sleep. Call this week to make an appointment with your primary care provider. Prescriptions: New methocarbamol 500 mg tablet 500 mg PO BEDTIME PRN (Reason: pain, moderate) Qty: 7 0RF methylprednisolone [Medrol (Ricardo)] 4 mg tablets,dose pack 4 mg PO QAM Qty: 1 0RF Rx Instructions: Take per package instructions No Action pantoprazole 40 mg tablet,delayed release (DR/EC) 40 mg PO BID Qty: 60 3RF trazodone 50 mg tablet 0.5 tab PO BEDTIME PRN (Reason: Insomnia) donepezil 10 mg tablet 1 tab PO BEDTIME sertraline 100 mg tablet 2 tab PO QAM mirtazapine 45 mg tablet 1 tab PO BEDTIME cholecalciferol (vitamin D3) 50 mcg (2,000 unit) capsule 1 cap PO QAM ondansetron 4 mg tablet,disintegrating 4 mg PO Q8H PRN (Reason: nausea and vomiting) Qty: 20 0RF sucralfate [Carafate] 100 mg/mL suspension 20 ml PO QNOON Qty: 1000 3RF lidocaine 5 % adhesive patch,medicated 1 patch topical DAILY ibuprofen [Advil Liqui-Gel] 200 mg capsule 200 mg PO Q6H PRN Print Language: Japanese
[2024-08-31 14:31] VITALS: BP 140/71; PULSE 73; RESP 18; TEMP 36.6; O2SAT 98; BMI 22.7
[2024-08-31 18:00] VITALS: BP 144/67; PULSE 58; RESP 16; O2SAT 98
[2024-08-31] MEDS: Ketorolac Tromethamine 15 MG/ML VIAL IM (18:55)
[2024-08-31] MEDS: methocarbamoL 500 MG TABLET PO (19:01)
[2024-08-31 19:43] VITALS: BP 144/67; PULSE 58; RESP 16; TEMP -17.7; TEMP 0; O2SAT 98
== END 2024-08-31 19:43 | disposition home or self-care (01) ==
PROVIDERS: Emergency Provider Emergency Medicine Emergency Medical Services; PCP General Practice
DX: M47.812 Spondylosis without myelopathy or radiculopathy, cervical region (principal); M54.2 Cervicalgia; M25.511 Pain in right shoulder; G30.9 Alzheimer's disease, unspecified; F02.80 Dementia in other diseases classified elsewhere, unspecified severity, without behavioral disturbance, psychotic disturbance, mood disturbance, and anxiety; Z79.899 Other long term (current) drug therapy
CPT/HCPCS: 72040; 73030; 96372; 99284; J1885

== ENCOUNTER → 2024-08-31 14:34 | Outpatient (BNV) | payer OTHER, SELFPAY | PROVIDERS: PCP General Practice; Visit Provider Radiology Diagnostic Radiology | DX: M50.322 Other cervical disc degeneration at C5-C6 level (principal); M50.323 Other cervical disc degeneration at C6-C7 level; M25.711 Osteophyte, right shoulder | CPT/HCPCS: 72040; 73030 ==

== ENCOUNTER 2024-11-05 11:30 | Emergency (ER) | payer OTHER, SELFPAY ==
[2024-11-05 11:44] VITALS: BP 134/70; PULSE 69; RESP 16; TEMP 35.8; O2SAT 97; BMI 25.2
--- NOTE | 2024-11-05 11:46 | ED.GENADULT ---
HPI - General Adult General Chief complaint: Neck Pain/Injury Stated complaint: Neck Pain- R Side, L Abd Pain Time Seen by Provider: 11/05/24 11:51 Source: patient and family Limitations: language barrier and other (dementia) History of Present Illness ED Provider: Susannah Garzon PA-C HPI narrative: 83-year-old female with a history of acute on chronic neck and right shoulder pain, polyradiculopathy, Alzheimer's dementia, interstitial lung disease, dysphagia, esophageal dysmotility, hyperlipidemia, states she chronic kidney disease, cardiomyopathy with heart failure presents with neck and right shoulder pain. No new fall no other trauma, no overuse injury, she is here to to exacerbation of her chronic pain. The son is at bedside, she has an appointment pending this coming week for an assessment of her neck and shoulder pain, she could not wait for the appointment. Related Data Home Medications ?Medication ?Instructions ?Recorded ?Confirmed cholecalciferol (vitamin D3) 50 1 cap PO QAM 01/13/22 01/13/22 mcg (2,000 unit) capsule donepezil 10 mg tablet 1 tab PO BEDTIME 01/13/22 01/13/22 mirtazapine 45 mg tablet 1 tab PO BEDTIME 01/13/22 01/13/22 sertraline 100 mg tablet 2 tab PO QAM 01/13/22 01/13/22 trazodone 50 mg tablet 0.5 tab PO BEDTIME PRN Insomnia 01/13/22 01/13/22 ibuprofen 200 mg capsule (Advil 200 mg PO Q6H PRN 06/25/24 Liqui-Gel) lidocaine 5 % topical patch 1 patch topical DAILY 06/25/24 Previous Rx's ?Medication ?Instructions ?Recorded ondansetron 4 mg disintegrating 4 mg PO Q8H PRN nausea and 07/07/23 tablet vomiting #20 tabs sucralfate 100 mg/mL oral 20 ml PO QNOON #1,000 mL 08/08/23 suspension (Carafate) pantoprazole 40 mg tablet,delayed 40 mg PO BID #60 tabs 08/15/24 release methocarbamol 500 mg tablet 500 mg PO BEDTIME PRN pain, 08/31/24 moderate #7 tabs methylprednisolone 4 mg tablets in 4 mg PO QAM #1 ea 08/31/24 a dose pack (Medrol (Ricardo)) methocarbamol 500 mg tablet 500 mg PO BEDTIME PRN pain, 11/05/24 moderate #7 tabs methylprednisolone 4 mg tablets in 4 mg PO QAM #21 ea 11/05/24 a dose pack (Medrol (Ricardo)) Allergies Allergy/AdvReac Type Severity Reaction Status Date / Time acetaminophen [Percocet] Allergy Mild denies Verified 11/05/24 11:47 oxycodone [Percocet] Allergy Mild denies Verified 11/05/24 11:47 Review of Systems Review of Systems: Yes all other systems are reviewed and are negative Constitutional: Constitutional: Denies fatigue and Denies fever(s) ENT: Reports neck pain Musculoskeletal: Musculoskeletal: Reports arthralgias, Reports joint swelling, Reports neck pain, Denies numbness, Reports radiating pain into limb and Denies tingling Neurologic: Denies numbness and Denies tingling Endocrine: Endocrine: Denies fatigue PMFSH Past Medical History Attestation statement: The following information was validated with the patient. Medical History Alzheimer disease Thoracic compression fracture Pubic bone fracture Closed fracture of iliac wing Closed rib fracture GERD (gastroesophageal reflux disease) HTN (hypertension) Dementia Diabetes Surgical History H/O colonoscopy History of varicose vein ligation and stripping History of hysterectomy History of cholecystectomy Family History Family History Sister Epilepsy Social History Social History Household Members: None Housing: Apartment Do you presently have visiting nurse or other home services: No Patient Tobacco Use Status: Never used Tobacco Advance Directives Date on File: 02/06/22 service: No Current occupational status: disabled Physical Exam ED Vital Signs: Vital Signs - 24 hr 11/05/24 11:44 Temperature 96.5 F L Pulse Rate 69 Respiratory Rate 16 Blood Pressure 134/70 Pulse Oximetry 97 Oxygen Delivery Method Room Air BMI result Body Mass Index 25.2 Const Other: Alert Orientation/consciousness: oriented to person Neck Other: Full range of motion of neck, pain with range of motion Resp Effort & Inspection: normal respiratory effort Cardio Other: Normal peripheral perfusion Skin Other: Warm dry no rash Neuro General: oriented to person, gait normal, no focal motor deficits and CN's II-XI intact bilaterally Extrem Other: Strength 5/5 bilateral upper extremities with resistance Psych Other: Cooperative Medical Decision Making Medical Decision Making MDM Narrative: 83-year-old female with a history of acute on chronic neck and right shoulder pain, polyradiculopathy, Alzheimer's dementia, interstitial lung disease, dysphagia, esophageal dysmotility, hyperlipidemia, states she chronic kidney disease, cardiomyopathy with heart failure presents with neck and right shoulder pain. No new fall no other trauma, no overuse injury, she is here to to exacerbation of her chronic pain. The son is at bedside, she has an appointment pending this coming week for an assessment of her neck and shoulder pain, she could not wait for the appointment. Problem: Chronic neck and shoulder pain, dementia, age History: Per patient and her son I have considered the following differential diagnoses: Chronic neck and shoulder pain, arthritis, cervical radiculopathy, VAD Plan: Patient here with chronic pain, she was last seen the end of August head CT scans of the neck x-ray of the shoulder, she has a arthritis, she was sent with a Medrol Dosepak and methocarbamol, these medications were effective for her, we will send to her pharmacy. Thought about VAD, however there was no preceding heavy lifting injury, she is neurologically intact, she does not require angiograms. The patient does not have a new trauma or overuse injury, there was no value in repeating imaging today. Discharge Plan Discharge Clinical Impression: Right cervical radiculopathy Patient Disposition: Home, Self-Care Instructions: Cervical Radiculopathy (ED) Additional Instructions: You are being treated for your chronic neck and shoulder pain. Use the Medrol Dosepak as directed, use the methocarbamol as directed. Please note the methocarbamol can cause drowsiness, do not drive or operate machinery while taking that medication. Keep your pending follow up appointment with your primary care provider for your chronic neck and shoulder pain, they may refer you to an orthopedist for a joint injection. Prescriptions: New methylprednisolone [Medrol (Ricardo)] 4 mg tablets,dose pack 4 mg PO QAM Qty: 21 0RF Rx Instructions: Take per package instructions. methocarbamol 500 mg tablet 500 mg PO BEDTIME PRN (Reason: pain, moderate) Qty: 7 0RF No Action pantoprazole 40 mg tablet,delayed release (DR/EC) 40 mg PO BID Qty: 60 3RF trazodone 50 mg tablet 0.5 tab PO BEDTIME PRN (Reason: Insomnia) donepezil 10 mg tablet 1 tab PO BEDTIME sertraline 100 mg tablet 2 tab PO QAM mirtazapine 45 mg tablet 1 tab PO BEDTIME cholecalciferol (vitamin D3) 50 mcg (2,000 unit) capsule 1 cap PO QAM ondansetron 4 mg tablet,disintegrating 4 mg PO Q8H PRN (Reason: nausea and vomiting) Qty: 20 0RF methocarbamol 500 mg tablet 500 mg PO BEDTIME PRN (Reason: pain, moderate) Qty: 7 0RF methylprednisolone [Medrol (Ricardo)] 4 mg tablets,dose pack 4 mg PO QAM Qty: 1 0RF Rx Instructions: Take per package instructions sucralfate [Carafate] 100 mg/mL suspension 20 ml PO QNOON Qty: 1000 3RF lidocaine 5 % adhesive patch,medicated 1 patch topical DAILY ibuprofen [Advil Liqui-Gel] 200 mg capsule 200 mg PO Q6H PRN Print Language: Turkish
[2024-11-05 12:03] VITALS: BP 134/70; PULSE 69; RESP 16; TEMP 35.8; O2SAT 97
== END 2024-11-05 12:07 | disposition home or self-care (01) ==
PROVIDERS: Emergency Provider Emergency Medicine; PCP General Practice
DX: M54.12 Radiculopathy, cervical region (principal); M54.2 Cervicalgia; M25.511 Pain in right shoulder; G30.9 Alzheimer's disease, unspecified; F02.80 Dementia in other diseases classified elsewhere, unspecified severity, without behavioral disturbance, psychotic disturbance, mood disturbance, and anxiety; Z79.899 Other long term (current) drug therapy
CPT/HCPCS: 99282; 99283

== ENCOUNTER 2024-12-05 11:01 | Outpatient (AMB) | payer OTHER, SELFPAY ==
--- NOTE | 2024-12-05 11:02 | MHC.OFFVIS ---
Vital Signs 12/05/24 11:10 Height 4 ft 11 in Weight 129 lb BMI 26.1 BP 151/83 H Blood Pressure Location Rt brachial Position Sitting Pulse 82 Pulse Source Pulse Oximeter Pulse Oximetry (%) 94 Oxygen Delivery Method Room Air Intake Visit Reasons: Degenerative disc disease cervical Mottle Lay Up Operator Required: Yes Mottle Lay Up Operator Services: Mottle Lay Up Operator Present Mottle Lay Up Operator Name: #[id number] Information Interpreted: non-clinical & clinical Allergies acetaminophen [Percocet] Allergy (Mild, Verified 12/05/24 11:11) denies oxycodone [Percocet] Allergy (Mild, Verified 12/05/24 11:11) denies Medication List - Last Reconciled 12/05/24 by Kia Matute, LUNCHROOM SUPERVISOR cholecalciferol (vitamin D3) 1 cap PO QAM donepezil 1 tab PO BEDTIME ibuprofen (Advil Liqui-Gel) 200 mg PO Q6H PRN lidocaine 5% 1 patch topical DAILY methocarbamol 500 mg PO BEDTIME PRN methocarbamol 500 mg PO BEDTIME PRN methylprednisolone (Medrol (Ricardo)) 4 mg PO QAM methylprednisolone (Medrol (Ricardo)) 4 mg PO QAM mirtazapine 1 tab PO BEDTIME ondansetron 4 mg PO Q8H PRN pantoprazole 40 mg PO BID sertraline 2 tabs PO QAM sucralfate (Carafate) 20 mL PO QNOON trazodone 0.5 tabs PO BEDTIME PRN HPI Comments Details: Visit completed with interpreter and translator #[id number] The patient is an 83-year-old female presenting to the office, accompanied by her son, with chronic right-sided neck pain that has persisted for many years, worse over the last 1 year. The pain is primarily on the right side, radiating down the arm and in the shoulder area, worsening with touch and movement. Denies burning, numbness, tingling of the right upper extremity. Pain medications and treatments such as topical gels, ibuprofen, muscle relaxants, and steroids have provided minimal relief. Imaging confirmed severe cervical osteoarthritis. Her existing dementia and Alzheimer's Disease complicate treatment options. Denies inciting injury, fall, trauma. Patient with dementia/Alzheimer's. Lives at home with family who are her primary caretakers. Son reports he tries to do stretching and massage with no relief. She is unable to tolerate physical therapy due to the excruciating pain. - Onset and Duration: Many years, worse over the last 1 year. - Quality and Character: Persistent pain, worsening with touch and certain movements. - Primary Location: Neck, primarily on right side. - Radiation: Radiates down the right arm and encompasses the right shoulder. - Exacerbating Factors: Physical contact and arm movement. - Alleviating Factors: Minimal relief from ibuprofen; ineffective with heat, ice, and topical applications. - Interference: Pain affects sleep and daily functioning. - Affect: Pain affects sleep, ability to perform daily activities, and overall quality of life. - Analgesia: Current use of ibuprofen providing limited relief; muscle relaxants and topical applications also used without significant benefit. Previous benefit noted with injections. - Adverse Effects: Concern over medication side effects due to existing dementia and Alzheimer's risk. - Activities of Daily Living: Limited ability to sleep comfortably or engage in daily activities due to pain. - Aberrant Drug Related Behaviors: None reported or observed. Denies implantable devices, pacemaker or defibrillator Denies current use of anticoagulants Denies current use of nicotine, tobacco, alcohol or illicit substances REPLACED BY [facility] Medical History Alzheimer disease Thoracic compression fracture Pubic bone fracture Closed fracture of iliac wing Closed rib fracture GERD (gastroesophageal reflux disease) HTN (hypertension) Dementia Diabetes Surgical History H/O colonoscopy History of varicose vein ligation and stripping History of hysterectomy History of cholecystectomy Family History Sister Epilepsy Social History Household Members: None Housing: Apartment Do you presently have visiting nurse or other home services: No Patient Tobacco Use Status: Never used Tobacco Advance Directives Date on File: 02/06/22 service: No Current occupational status: disabled Review of Systems Const Details: - Musculoskeletal: Reports chronic neck pain, right shoulder pain. - Neurological: Denies falls. Discussed dementia, Alzheimer's Disease. - General: Denies effective relief with previously prescribed medications. Physical Exam Vital Signs: Last Vital Signs Pulse 82 12/05/24 11:10 BP 151/83 H 12/05/24 11:10 Pulse Ox 94 12/05/24 11:10 Oxygen Delivery Method Room Air 12/05/24 11:10 BMI result Body Mass Index 26.1 General: awake, alert. Answers questions appropriately. Frail, elderly. Appears stated age. Skin: warm, dry, intact HEENT: Normocephalic. Hearing intact. Cardiac: External chest normal in appearance. Respiratory: No cough, audible wheezing or stridor. Abdomen: without gross distension. MS: No obvious swelling or deformities. Able to transition from sit to stand unassisted. Ambulates with bilaterally normal heel strike and toe off Cervical Spine: Visible inspection without gross abnormality Minimally tender to palpation midline cervical vertebrae and cervical paraspinal muscles Spurling compression test positive BUE strength 4/5 Neurological: Oriented to person, place, time and situation. Thought process intact. Psychiatric: Appropriate mood and affect. Good judgment and insight. Results Reviewed Results Reviewed: 08/31/24 XR CS Findings: Mild multilevel anterolisthesis and retrolisthesis, degenerative. No fracture. The vertebral body heights are preserved. There is severe intervertebral disc space narrowing C5/C6 and C6/C7. Otherwise mild intervertebral disc space narrowing. [id number] multilevel endplate osteophytosis and uncovertebral joint and facet hypertrophy. No prevertebral soft tissue swelling. Impression: No acute findings. Severe lower cervical degenerative change. Assessment & Plan Assessment & Plan (1) Cervical spondylosis: Code(s): M47.812 - Spondylosis without myelopathy or radiculopathy, cervical region Category: Medical (2) Chronic neck pain: Code(s): M54.2 - Cervicalgia; G89.29 - Other chronic pain Category: Medical (3) Right shoulder pain: Code(s): M25.511 - Pain in right shoulder Category: Medical Plan For the management of the patient?s chronic neck pain due to cervical osteoarthritis, I will proceed with obtaining insurance approval for diagnostic medial branch blocks. The patient will continue using diclofenac gel for topical pain management, with Tylenol to control arthritis-related pain. Given the patient's dementia and Alzheimer's, care will be taken to avoid medications that may exacerbate cognitive symptoms or increase fall risk. Follow-up will depend on the timing of insurance approval and observed response to treatment. I discussed with the patient and her son the diagnosis of cervical osteoarthritis and the associated chronic neck pain. The management plan involves obtaining insurance approval for diagnostic injections to address pain severity, with potential inclusion of steroids vs RFA if these initial injections prove beneficial. The implications of her dementia regarding sedation risks and fall potential with systemic treatment were explained. I advised on continued use of diclofenac gel as previously prescribed, given its topical nature and localized effect mitigating systemic side effects. The potential need for subsequent follow-up and injection scheduling hinged on prompt insurance response was acknowledged, and the patient was encouraged to maintain a pain diary to assess injection effectiveness. Will schedule for fluoroscopy guided right diagnostic C3-C4 C5-C6 medial branch blocks with local anesthetic. If negative will plan for MRI. Patient was informed and verbally consented to the use of an ambient scribe for clinic note documentation during this visit. Medications: New diclofenac sodium 1% apply to single elbow, wrist or hand; for hand includes palm/fingers/back of hand. Do not take Ibuprofen/Motrin or other NSAIDs while using this medication 2 grams topical QID 100 grams 0RF Patient Instructions: - Continue using the diclofenac gel as instructed. - Use Tylenol for managing arthritis pain as needed, but sparingly due to risks to the liver. - Avoid ibuprofen or related medications unless advised due to potential kidney and stomach issues. - Keep track of pain levels in a diary after injections are administered. - Await a call for scheduling the injection procedure once insurance gives approval. - Attend follow-up appointments as directed and call the office with any questions or concerns. Coding Level of Care Code New Pt Level 4 (90463) Complex EM visit Add On G2211 Diagnoses Cervical spondylosis M47.812 Chronic neck pain M54.2; G89.29 Right shoulder pain M25.511
[2024-12-05 11:10] VITALS: BP 151/83; PULSE 82; O2SAT 94; BMI 26.1
--- OUTSIDE RECORDS SUMMARY | 2024-12-05 12:05 | XMS_ITS | Clinical Summary ---
Author Organization [facility] Address [address] [place] [address] Phone Care Team Providers Care Driver Manager Name Role Phone Inés Frances Primary Care Provider Unavailabl e Allergies Active Allergy Reactions Criticality Noted Date Comments Hydrocodone-Acetaminophen 11/17/2021 Oxycodone-Acetaminophen Itching 11/17/2021 Vancomycin 11/17/2021 Medications GAS RELIEF 125 MG capsule TAKE 2 CAPSULES BY MOUTH EVERY DAY NEEDED FOR GAS. NO MORE THAN 4 CAPSULE (S) PER DAY 1 Active sertraline (ZOLOFT) 100 MG tablet Take 200 mg by mouth every morning 1 Active omeprazole (PriLOSEC) [address] capsule Take 20 mg by mouth 1 Active mirtazapine (REMERON) 45 MG tablet Take 45 mg by mouth at bed time 1 Active lisinopril 20 MG tablet Take 20 mg by mouth at bed time 1 Active donepezil (ARICEPT) 10 MG tablet Take 10 mg by mouth at bed time 1 Active dicyclomine (BENTYL) 10 MG capsule TAKE 1 CAPSULE BY MOUTH FOUR TIMES DAILY BEFORE MEALS & AT BEDTIME 1 Active cholecalciferol (VITAMIN D-3) 50 MCG (1999 UT) capsule Take 2,000 Units by mouth 1 Active amLODIPine (NORVASC) 5 MG tablet Take 5 mg by mouth at bed time 1 Active traZODone (DESYREL) 50 MG tablet 2 Active Multiple Vitamin (Multivitamin) tablet Take 1 tablet by mouth 1 (one) time each day with breakfast 2 Active Active Problems Problem Noted Date Diagnosed Date Vitamin D deficiency 11/17/2021 Arthritis of acromioclavicular joint 11/17/2021 Overview (11/17/2021): moderate on x-ray 2017 Ascending aorta dilatation 11/17/2021 Overview (11/17/2021): clinically, it would be a balance between followup for possibel surgeyr, versus risk of surgery given her many comobridities including dementia....2017 ECHO 4.0 cm Cardiomegaly 11/17/2021 Cataract 11/17/2021 Congestive heart failure 11/17/2021 Overview (11/17/2021): per Cardiology ntoe: , heart failure with recovered EF presumably non-ischemic CM NYHA III and mild aortic insufficiency Diverticular disease 11/17/2021 Dyslipidemia 11/17/2021 Fall 11/17/2021 Compression fracture of thoracic spine Gastroesophageal reflux disease 11/17/2021 Glaucoma 11/17/2021 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 08/17/2021 Acute depression 08/17/2021 Stage 3a chronic kidney disease 08/17/2021 Osteoporosis 08/17/2021 Hyperlipidemia 08/17/2021 Immunizations Immunization Administration Dates Next Due Influenza Whole 06/13/2012 Influenza, Unspecified 06/12/2019,2017,06/10/2013,06/30/2011 ,06/16/2010,09/01/2009 Pneumococcal Conjugate 13-Valent 04/07/2020 Pneumococcal Polysaccharide 09/01/2009 Tdap 04/07/2020 Tetanus Toxoid, Unspecified 04/29/2010 Social History Tobacco Use Types Packs/Day Years Used Date Smoking Tobacco: Never Smokeless Tobacco: Never Tobacco Cessation:Counseling Given: Not Answered Alcohol Use Standard Drinks/Week Comments Never 0 (1 standard drink = 0.6 oz pur e alcohol) Comments Unknown Sex and Gender Information Value Date Recorded Sex Assigned at Not on file Legal Sex Female 3:43 PM EST Gender Identity Not on file Sexual Orientation Not on file Last Filed Vital Signs Vital Sign Reading Time Taken Comments Blood Pressure 120/64 04/10/2022 2:47 PM EDT Pulse 94 04/10/2022 2:47 PM EDT Temperature - - Respiratory Rate - - Oxygen Saturation 92% 04/10/2022 2:47 PM EDT Inhaled Oxygen Concentration - - Weight 47.1 kg (103 lb 12.8 oz) 04/10/2022 2:47 PM EDT Height - - Body Mass Index - - Plan of Treatment Health Maintenance Due Date Last Done Comments Diabetes: Hemoglobin A1C 08/17/2021 Diabetes: Ophthalmology Exam 08/17/2021 Diabetes: Pedal Pulse Checked 08/17/2021 Diabetes: Sensory Foot Exam 08/17/2021 Diabetes: Visual Foot Exam 08/17/2021 Influenza Vaccine (Season Ended) 2025 06/12/2019, 07/15/2018, 06/10/2013, Additional history exists Pneumococcal Vaccine: 50+ Years Completed 04/07/2020, 09/01/2009 Hepatitis B Vaccine Aged Out No longe r eligible based on patient's age to complete this topic Insurance [facility] ([id number]) [facility] ([id number]) Care Teams Driver Manager Relationship Specialty Start Date End Date Frances Conte PCP - General Family Medicine 07/11/21
--- OUTSIDE RECORDS SUMMARY | 2024-12-05 12:05 | XMS_ITS | Patient Health Record ---
Author Organization [facility] Address [address] [place] [address] Care Team Providers Care Oracle Scm Consultant Name Role Phone Marisabel Delaney M.D. Primary Care Provider UnaFahad Juares Unavailable [phone] Reason For Referral No Information Plan Of Treatment No Information Insurance Providers Payer Name Payer Address Payer Phone Subscriber Number Group Number Insured Name Patient Relationship to Insured Coverage Start Date Coverage End Date [facility] [address] [place] [address] [id number] JEFFERY LOREDO Self - patient is the insured
--- OUTSIDE RECORDS SUMMARY | 2024-12-05 12:05 | XMS_ITS | Encounter Summary ---
Author Organization [facility] Address [address] [place] [address] Care Team Providers Care Lead Etl Developer Name Role Phone Marisabel Delaney MD Primary Care Provider [phone] Encounter Details Date Type Department Care Team (Late st Contact Info) Description 11/30/2022 Orders Only [facility] [address], [place] [phone] Marisabel Delaney MD [address], [place] [phone] Colitis (Primary Dx) Social History Tobacco Use Types Packs/Day Years Used Date Smoking Tobacco: Never Smokeless Tobacco: Never Comments Unknown Sex and Gender Information Value Date Recorded Sex Assigned at Female 06/19/2022 10:16 AM EDT Legal Sex Female 10:16 AM EDT Gender Identity Female 06/19/2022 10:16 AM EDT Sexual Orientation Choose not to disclose 2021 10:16 AM EDT COVID-19 Exposure Response Date Recorded In the last 10 days, have yo u been in contact with someone who was confirmed or suspected to have Coronavirus/COVID-19? No / Unsure 11/13/2022 10:40 AM EDT documented as of this encounter Plan of Treatment Upcoming Encounters Date Type Department Care Team (Late st Contact Info) Description 03/17/2025 2:30 PM EDT Office Visit [facility] [address] [place] [address] Minda Calixto, OD [address] [place] [address] documented as of this encounter Visit Diagnoses Diagnosis Colitis- Primary Other and unspecified noninfectious gastroenteritis and colitis documented in this encounter Care Teams Lead Etl Developer Relationship Specialty Start Date End Date Marisabel Delaney MD [address] [place] [address] PCP - General Family Medicine 04/14/22 documented as of this encounter
--- OUTSIDE RECORDS SUMMARY | 2024-12-05 12:05 | XMS_ITS | Encounter Summary ---
Author Organization [facility] Address [address] [place] [address] Care Team Providers Care Cost Accountant Name Role Phone Marisabel Delaney MD Primary Care Provider Reason for Referral * Consultation (Routine) - Authorized Specialty Diagnoses / Procedures Referred By Matt t Referred To Contact Orthopaedic Surgery Diagnoses Tendinopathy of right rotator cuff Marisabel Delaney MD [address] [place] [phone] Phone: tel: fax: [facility] [address] [place] [address] Drive [address] [place], [place] Phone: tel: fax: Referral ID Status Reason Start Date Expiration Date Visits Requested Visits Authorized [id number] Authorized Specialty Services Required 09/04/2024 09/04/2025 1 1 Encounter Details Date Type Department Care Team (Late st Contact Info) Description 09/04/2024 Orders Only [facility] [address] [place] [phone] Marisabel Delaney MD [address] [place] [phone] Tendinopathy of right rotator cuff (Primary Dx) Social History Tobacco Use Types Packs/Day Years Used Date Smoking Tobacco: Never Smokeless Tobacco: Never Alcohol Use Standard Drinks/Week Comments Never 0 (1 standard drink = 0.6 oz pur e alcohol) Depression Answer Date Recorded Patient Health Questionnaire-9 Score 0 08/15/2024 Patient Health Questionnaire-9 Score 0 08/15/2024 Last PHQ-9: Questionnaire Data Not on file 1 10/16/2023 Housing Stability Answer Date Recorded What is your housing situation today? I have jennifer arellano 07/16/[address] you li ve. Do you have problems with any of the following? None of the above 07/16/2023 Food Insecurity Answer Date Recorded Within the past 12 months, y ou worried that your food would run out before you got money to buy more: Never True 07/16/2023 Within the past 12 months,th e food you bought just didn't last and you didn't have enough money to get more: Never True Transportation Answer Date Recorded In the past 12 months, has l ack of transportation kept you from medical appts, meetings, work or from getting things needed for daily living? No 07/16/2023 Utilities Answer Date Recorded In the past 12 months, has t he electric, gas, oil or water company threatened to shut off services in your home? No 07/16/2023 Depression Answer Date Recorded Patient Health Questionnaire-2 Score 0 08/15/2024 Comments Unknown Sex and Gender Information Value Date Recorded Sex Assigned at Female 06/19/2022 10:16 AM EDT Legal Sex Female 10:16 AM EDT Gender Identity Female 06/19/2022 10:16 AM EDT Sexual Orientation Choose not to disclose 2021 10:16 AM EDT documented as of this encounter Plan of Treatment Upcoming Encounters Date Type Department Care Team (Late st Contact Info) Description 03/17/2025 2:30 PM EDT Office Visit [facility] [address] [place] [address] Minda Calixto, OD [address] [place] [address] Scheduled Referrals Name Type Priority Associated Diagnoses Order Schedule Referral to Orthopaedic Surgery Outpatient Referral Routine Tendinopathy of right rotator cuff Expected: 09/04/2024 (Approximate), Expires: 09/04/2025 documented as of this encounter Visit Diagnoses Diagnosis Tendinopathy of right rotator cuff- Primary documented in this encounter Additional Health Concerns Assessment Noted Time PHQ-9 Depression Total Score: 0 08/15/20 24 3:52 PM EST documented as of this encounter Care Teams Cost Accountant Relationship Specialty Start Date End Date Marisabel Delaney MD [address] [place] [address] PCP - General Family Medicine 04/14/22 documented as of this encounter
--- OUTSIDE RECORDS SUMMARY | 2024-12-05 12:05 | XMS_ITS | Clinical Summary ---
Author Organization [employer] Address [address] [place] [address] [address] [place] [address] Care Team Providers Care Web Producer Name Role Phone Marisabel Delaney MD Primary Care Provider [phone] Allergies Active Allergy Reactions Criticality Noted Date Comments Acetaminophen 03/20/2013 Hydrocodone-Acetaminophen 11/17/2021 Oxycodone-Acetaminophen Itching 03/20/2013 Other reaction(s): HIVES Vancomycin 11/17/2021 Medications amLODIPine (Norvasc) 5 MG tablet Take 5 mg by mouth at bed time. 07/31/20 21 Active Diclofenac Sodium 1 % gel Apply topically. 05/12/20 21 Active donepezil (Aricept) 10 MG tablet Take 10 mg by mouth at bedtime. 10/16/19 23 Active lisinopril 20 MG tablet Take 20 mg by mouth at bed time. 04/27/20 21 Active mirtazapine (Remeron) 45 MG tablet Take 45 mg by mouth at bedtime. 10/16/19 23 Active sertraline (Zoloft) 100 MG tablet TAKE 2 TABLETS BY MOUTH ONCE DAILY IN THE MORNING 10/16/19 23 Active traZODone (Desyrel) 50 MG tablet Take 50 mg by mouth if needed at bedtime. 10/16/19 23 Active ondansetron ODT (Zofran-ODT) 4 MG disintegrating tablet TOME YAMILET TABLETA POR V A ORAL CADA OCHO HORAS CUANDO SEA NECESARIO PARA LAS N USEAS Y V MITOS 07/07/20 23 Active Blood Pressure Monitoring (Blood Pressure Cuff) miscIndications:P rimary hypertension 1 each in the morning. 1 each 07/16/20 23 Active busPIRone (Buspar) 5 MG tablet Take 5 mg by mouth 3 times daily. 09/11/19 24 Active pantoprazole (ProtoNix) 40 MG EC tablet Take 40 mg by mouth 2 times daily. 08/31/19 24 Active omeprazole (PriLOSEC) [address] capsuleIndication s:Gastroesophagea l reflux disease without esophagitis TAKE 1 CAPSULE BY MOUTH EVERY MORNING 90 capsule 1 10/17/19 24 Active Multiple Vitamin (Multivitamin) tablet TAKE 1 TABLET BY MOUTH EVERY MORNING WITH FOOD 90 tablet 3 07/07/20 24 Active D3 Super Strength 50 MCG (2000 UT) capsule TAKE 1 CAPSULE BY MOUTH EVERY MORNING 90 capsule 3 07/07/20 24 Active lidocaine (Lidoderm) 5 % patch APPLY 1 PATCH TOPICALLY TO SKIN, LEAVE ON FOR 12 HOURS AND OFF FOR 12 HOURS DIRECTED 08/14/20 24 Active sucralfate (Carafate) 1 GM/10ML suspension Take 10 mL (1 g) by mouth every 12 (twelve) hours if needed (stomach pain). 414 mL 3 11/18/19 25 Active methocarbamol (Robaxin) 500 MG tabletIndications :Degenerative disc disease, cervical Take 1 tablet (500 mg) by mouth at bedtime. 60 tablet 3 11/18/19 25 2024 Active methylPREDNISolon e (Medrol Dospak) 4 MG tabletsIndication s:Degenerative disc disease, cervical use as directed on package 11/06/19 25 Active sertraline (Zoloft) 50 MG tabletIndications :Acute depression Take 50 mg by mouth in the morning. 11/05/19 25 Active sucralfate (Carafate) 1 GM/10ML suspension TAKE 20 ML BY MOUTH EVERY DAY AT NOON 08/08/20 23 2024 Discontinued(R eorder (will not trigger notification to Pharmacy)) Active Problems Problem Noted Date Diagnosed Date Degenerative disc disease, cervical 11/19/2024 Stage 3a chronic kidney disease 02/10/2024 History of interstitial lung disease 09/21/2023 Assessment & Plan (09/21/2023 6:21 AM EST): Seen on CT scan No treatment and no SOB Severe late onset Alzheimer' s dementia without behavioral disturbance, psychotic disturbance, mood disturbance, or anxiety 11/06/2022 Assessment & Plan (11/19/2024 9:55 AM EDT): Continue Donepezil Family declines geriatrics consult at this time Her behaviors are not disruptive, but repetitive and perseverating Focus on quality of life, day/night sleep schedule Has [employer] hours daily for 2-4 hours Assessment & Plan (02/10/2024 12:58 PM EDT): Continue Donepezil, consider additional agents? Family declines geriatrics consult at this time Her behaviors are not disruptive, but repetitive and perseverating Focus on quality of life, day/night sleep schedule Has [employer] hours daily for 2-4 hours Assessment & Plan (09/21/2023 6:17 AM EST): Continue Donepezil Her behaviors are not disruptive, but repetitive and perseverating Focus on quality of life, day/night sleep schedule Assessment & Plan (11/07/2022 1:43 PM EDT): Continue Donepezil Her behaviors are not disruptive Focus on quality of life Right-sided abdominal pain of unknown cause 10/19 Assessment & Plan (11/19/2024 9:57 AM EDT): Recommend drinking more liquids Call [facility] gastroenterology to make a followup appointment EGD and barium swallow non-revelatory, no pathologic or concerning findings Carafate did seem to help, so I resumed this prescsription Continue PPI Protonix 40mg BID for now, consider taper with GI if not effective for her symptoms due to balance of risks and benefits Assessment & Plan (02/10/2024 1:03 PM EDT): EGD and barium swallow non-revelatory, no pathologic or concerning findings Continue PPI Protonix 40mg BID for now, consider taper with GI if not effective for her symptoms due to balance of risks and benefits Assessment & Plan (09/21/2023 6:20 AM EST): Likely due to combination of constipation, cholecystectomy, GERD treated for colitis/diverticulitis x 2 in 2022 without change in pain Will have EGD and barium swallow with GI Continue high dose PPI for short time (3 months) Continue Carafate Discussed warning signs of fever, inability to tolerate PO as reasons to take pt to ER Assessment & Plan (07/18/2023 9:45 AM EST): Likely due to constipation, at least in part treated for colitis/diverticulitis x 2 in 2022 without change in pain Has appointment with GI Jul 2023 Assessment & Plan (05/18/2023 9:06 AM EDT): Continue bentyl and Simethicone prn GI referral CT abdpelvis 11/2022 Assessment & Plan (11/07/2022 1:43 PM EDT): CT abd/pelvis ordered, without contrast due to CKD3 She has complained about this for months/years, now worse Acromioclavicular joint arthritis 11/17/2021 Overview (11/07/2022): moderate on x-ray 2018 moderate on x-ray 2018 Ascending aorta dilatation 11/17/2021 Overview (05/18/2023): 2017 ECHO 4.0 cm clinically, it would be a balance between followup for possible surgery, versus risk of surgery given her many comobridities including dementia. Assessment & Plan (11/19/2024 9:55 AM EDT): Ascending aorta measured 4.0 in 2017, measured 4.5cm in 2022 Continue to follow serially with echo every 1-2 years Good control of BP Assessment & Plan (07/18/2023 9:40 AM EST): Ascending aorta measured 4.0 in 2017, measured 4.5cm in 2022 Continue to follow serially with echo every 1-2 years Good control of BP Assessment & Plan (05/18/2023 9:00 AM EDT): Needs repeat, also now with R sided pulsatile neck mass Normal inflammatory markers Cardiomegaly 11/17/2021 Assessment & Plan (08/19/2024 12:11 PM EST): 06/2023 Echo: 1. Mildly reduced LV ejection fraction 45-50% with impaired relaxation filling pattern 2. Moderately dilated left atrium Cataract 11/17/2021 Compression fracture of thoracic vertebra 2021 Diverticular disease 11/17/2021 Assessment & Plan (09/21/2023 6:21 AM EST): On CT scans from last year Warned of how infections in the diverticula can present Dyslipidemia 11/17/2021 Fall 11/17/2021 Glaucoma 11/17/2021 Hearing loss 11/17/2021 Osteopenia 11/17/2021 Polyradiculopathy 11/17/2021 Overview (11/07/2022): right L4-S1 polyradiculopathy. Bilateral S1 involvement right L4-S1 polyradiculopathy. 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 Thyroid nodule 12/25/2013 Assessment & Plan (09/21/2023 6:21 AM EST): Upcoming thyroid US at [facility] Congestive heart failure 03/20/2013 Overview (07/18/2023): per Cardiology note: , heart failure with recovered EF presumably non-ischemic CM NYHA III and mild aortic insufficiency Now with mildly impaired EF of 45-50% Osteoporosis 12/06/2011 Hypertensive disorder 08/20/1959 Assessment & Plan (09/21/2023 6:20 AM EST): Continue Amlodipine 5mg At goal <140/90 Assessment & Plan (11/07/2022 1:43 PM EDT): Continue meds if she is willing to take them Cardiomyopathy 08/20/1959 Acute depression 08/20/1959 Gastroesophageal reflux disease 08/20/1959 Hyperlipidemia 08/20/1959 Vitamin D deficiency 08/20/1959 Resolved Problems Problem Noted Date Diagnosed Date Resolved Date Stage 2 chronic kidney disease 08/20/1959 11/19/2024 Assessment & Plan (05/18/2023 9:05 AM EDT): Continue to monitor, eGFR improved to > 60 on latest check Continue to drink few glasses of water daily Encounters Date Type Department Care Team Description 11/17/2024 2:00 PM EDT Office Visit [facility] [address] [place] [address] Marisabel Delaney MD Degenerative disc disease, cervical (Primary Dx); Dietary counseling; Exercise counseling; Chronic congestive heart failure, unspecified heart failure type (CMS/HCC); 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, psychotic disturbance, mood disturbance, or anxiety (CMS/HCC); Ascending aorta dilatation (CMS/HCC); Stage 3a chronic kidney disease (CMS/HCC); Right-sided abdominal pain of unknown cause; Age-related osteoporosis with current pathological fracture, sequela; Acute depression; Compression fracture of T12 vertebra, sequela; Arthritis of right acromioclavicular joint 11/17/2024 Travel 09/17/2024 1:30 PM EST Office Visit [facility] [address] [place] [address] Durga, Minda, OD 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 (CMS/HCC) (Primary Dx); RPE mottling of macula; Dominant drusen, bilateral; Pseudophakia; Presbyopia 09/17/2024 Travel from Last 3 Months Immunizations Name Administration Dates Next Due Influenza High-dose Quadriva lent Preservative Free 07/16/2023,06/05/2022,07/27/2020 Influenza Whole 06/13/2012 Influenza, High Dose Seasona l, Preservative Free 06/06/2017,08/22/2016 Influenza, IIV3, injectable 06/12/2019,1 09/14/2017,06/10/2013,05/29,06/30/2011,06/20/2011,06/16/2010 ,09/01/2009 Influenza, Unspecified 06/10/2013 Pneumococcal Conjugate PCV 13 04/07/2020 Pneumococcal Polysaccharide PPSV23 09/01/2009,,06/28/2006 TD (adult), 2 Lf tetanus tox oid, preservative free, adsorbed 04/20/2010 Tdap 01/13/2022,04/07/2020,08/22/2016 Tetanus Toxoid, Unspecified 04/29/2010 Zoster, live 09/18/2014 Social History Tobacco Use Types Packs/Day Years [...] not to disclose 2021 10:16 AM EDT Last Filed Vital Signs Vital Sign Reading Time Taken Comments Blood Pressure 140/77 11/17/2024 2:28 PM EDT Pulse 69 11/17/2024 2:28 PM EDT Temperature 37 ??C (98.6 ??F) 11/17/2024 2:28 PM EDT Respiratory Rate 17 11/17/2024 2:28 PM EDT Oxygen Saturation 98% 09/19/2023 4:18 PM EST Inhaled Oxygen Concentration - - Weight 58.3 kg (128 lb 9.6 oz) 11/17/2024 2:28 P M EDT Height 149.9 cm (4' 11 ) 11/17/2024 2:28 PM EDT Body Mass Index 25.97 11/17/2024 2:28 PM EDT Plan of Treatment Upcoming Encounters Date Type Department Care Team (Late st Contact Info) Description 03/17/2025 2:30 PM EDT Office Visit [facility] [address] [place], [place] [id number] Durga, Minda, OD [address] [place] [address] Health Maintenance Due Date Last Done Comments Diabetes: Foot Exam 1948 RSV Patients and Patients Aged 60 years or older (1 - 1-dose 75+ series) 2013 Zoster Vaccines (2 of 3) 11/13/2014 09/18/2014 COVID-19 Vaccine ( season) 2024 03/14/2022, 10/28/2020, 10/01/2020 Influenza Vaccine (#1) 2024 , 06/05/2022, 07/27/2020, Additional history exists Lipid Panel 05/16/2024 05/16/2023, 07/04/2021 Diabetes: Urine Protein Screening 05/17/2024 05/17/2023, 07/04/2021 SDOH Screening 07/16/2024 07/16/2023 Diabetes: Hemoglobin A1C 02/13/2025 024, 09/19/2023, 05/16/2023 Alcohol/Substance Use Screening 08/15/2025 08/15/2024 Depression Screening 08/15/2025 08/15/2024, 08/15/20 24 Eye Exam 09/17/2025 09/17/2024, 08/21, 09/17/2024, Additional history exists Tobacco Screening 11/19/2025 11/19/2024 DTaP/Tdap/Td Vaccines (4 - Td or Tdap) 01/14/2032 01/13/2022, 04/07/2020, 08/22/2016, Additional history exists Pneumococcal Vaccine: 50+ Years Completed 04/07/2020, 09/01/2009, 08/20/2009, Additional history exists HIB Vaccines Aged Out No longer eligi ble based on patient's age to complete this topic HPV Vaccines Aged Out No longer eligi ble based on patient's age to complete this topic Hepatitis A Vaccines Aged Out No long er eligible based on patient's age to complete this topic Hepatitis B Vaccines Aged Out No long er eligible based on patient's age to complete this topic IPV Vaccines Aged Out No longer eligi ble based on patient's age to complete this topic Meningococcal Vaccine Aged Out No rena eriberto eligible based on patient's age to complete this topic RSV under 20 months Aged Out No longe r eligible based on patient's age to complete this topic Rotavirus Vaccines Aged Out No longer eligible based on patient's age to complete this topic Procedures Procedure Name Priority Date/Time Associated Diagnosis Comments OCT, RETINA - OU - BOTH EYES Routine 09/17/2024 1:30 PM EST RPE mottling of macula POCT GLYCATED HEMOGLOBIN, TOTAL Routine 08/15/2024 3:57 PM EST Type 2 diabetes mellitus with diabetic autonomic neuropathy, without long-term current use of insulin ([facility]/HCC) ALBUMIN, RANDOM URINE W/CREATININE Routine 05/17/2023 11:08 AM EDT LIPID PANEL, STANDARD Routine 05/16/2023 2:30 PM EDT Type 2 diabetes mellitus with diabetic autonomic neuropathy, without long-term current use of insulin (CMS/HCC) from Last 3 Months or Most Recently Relevant to Health Maintenance Results * OCT, Retina - OU - Both Eyes (09/17/2024 1:30 PM EST) Narrative Minda Calixto, OD - 10/03/2024 3:10 PM EST OCT [facility] [employer] Optical Coherence Tomography Interpretation Report Measurements: OD ??OS Macula Thickness ??232 microns ??249 microns Test findings: OD: Normal foveal contour, no cystoid macular edema (CME), few scattered extrafoveal drusen, area of retinal pigment epithelium (RPE) mottling/double layer beginning just superior to fovea extending superiorly, no subretinal fluid (SRF) OS: Slightly irregular foveal contour, cystoid macular edema (CME) at fovea with cystic changes superior and inferior to fovea, no retinal pigment epithelium (RPE) disruption, no subretinal fluid (SRF) Impression and Plan: 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 Will monitor in 6 months. Minda Calixto OD OPHTH TOMOGRAPHY Final Result * POCT HGB A1C (08/15/2024 3:57 PM EST) Hemoglobin A1C 5.9 4.0 - 6.0 % QC Media Lot # [id number] Lot# Expiration Date Blood 08/15/2024 3:57 PM EST Result [facility] Marisabel Delaney MD POINT OF CARE TEST ENTER/EDIT ORDERABLES Final Result * Albumin, Random Urine W/Creatinine (05/17/2023 11:08 AM EDT) Creatinine, Urine 41.70 mg/dL [facility] Microalbumin Urine 5.0 mg/L [facility] Microalbum Creatinine Ratio Ur 11.9 <30 ug/mg cr [facility] Comment:Albumin/Creatinine R atio Reference Ranges: Normal: < 30 ug/mg creatinine Microalbuminuria: 30 - 300 ug/mg creatinineClinical Albuminuria: > 300 ug/mg creatinine 05/17/2023 11:0 8 AM EDT 05/17/2023 5:26 PM EDT Result [facility] Marisabel Delaney MD LAB URINE ORDERABLES Final Res ult [facility] [address] [place] [address] [phone] * (ABNORMAL) Lipid Panel, Standard (05/16/2023 2:30 PM EDT) Triglycerides 121 <150 mg/dL [facility] Comment:Desirable Triglyceri de: less than 150 mg/dLBorderline High Triglyceride 150-199 mg/dLHigh Triglyceride: 200-499 mg/dLVery High Triglyceride: greater than or equal to 5OO mg/dL Cholesterol 177 <200 mg/dL [facility] Comment:Desirable Cholestero l: less than 200 mg/dLBorderline High Cholesterol: 200-239 mg/dLHigh Cholesterol: greater than 239 mg/dL LDL Cholesterol Calculated 100(H) <100 mg/dL [facility] Comment:Desirable LDL: less than 100 mg/dLNear Optimal/Above Optimal LDL: 110- 129 mg/dLBorderline High LDL: 130-159 mg/dLHigh LDL: 160-189 mg/dLVery High LDL: greater than or equal to 190 mg/dL HDL Cholesterol 53 >40 mg/dL [facility] Comment:Desirable HDL: great er than 40 mg/dL Note: This HDL assay may give artificially low results in patients with liver disease. Blood Venous blood specimen / Unknown 05/16/2023 2:30 PM EDT 05/16/2023 5:17 PM EDT us Marisabel Delaney MD LAB BLOOD ORDERABLES Final Res ult Performing Organization Address City/[facility]/ZIP Co de Phone Number [facility] [address] [place] [address] [phone] from Last 3 Months or Most Recently Relevant to Health Maintenance Insurance [facility] Care Teams Web Producer Relationship Specialty Start Date End Date Marisabel Delaney MD [address] [place] [address] PCP - General Family Medicine 04/14/22
== END 2024-12-05 11:34 | disposition home or self-care (01) ==
LOC: HO.PMC 11:01
PROVIDERS: PCP General Practice; Referring Provider General Practice; Visit Provider Registered Nurse Emergency
DX: M47.812 Spondylosis without myelopathy or radiculopathy, cervical region (principal); M54.2 Cervicalgia; G89.29 Other chronic pain; M25.511 Pain in right shoulder
CPT/HCPCS: 99204; G2211

== ENCOUNTER → 2024-12-05 11:01 | Outpatient (BNVA) | payer OTHER, SELFPAY | PROVIDERS: PCP General Practice; Referring Provider General Practice; Visit Provider Registered Nurse Emergency | DX: M47.812 Spondylosis without myelopathy or radiculopathy, cervical region (principal); M54.2 Cervicalgia; M25.511 Pain in right shoulder; G89.29 Other chronic pain | CPT/HCPCS: 99202 ==

== ENCOUNTER 2024-12-31 13:39 | Outpatient (AMB) | payer OTHER, SELFPAY ==
--- OUTSIDE RECORDS SUMMARY | 2024-12-31 13:44 | XMS_ITS | Clinical Summary ---
Author Organization [employer] Address [address] [facility] [address] [place] [address] Care Team Providers Care Ore Washer Name Role Phone Marisabel Delaney MD Primary Care Provider [phone] Allergies Active Allergy Reactions Criticality Noted Date Comments Acetaminophen 03/20/2013 Hydrocodone-Acetaminophen 11/17/2021 Oxycodone-Acetaminophen Itching 03/20/2013 Other reaction(s): HIVES Vancomycin 11/17/2021 Medications amLODIPine (Norvasc) 5 MG tablet Take 5 mg by mouth at bed time. 1 Active Diclofenac Sodium 1 % gel Apply topically. 1 Active donepezil (Aricept) 10 MG tablet Take 10 mg by mouth at bedtime. 3 Active lisinopril 20 MG tablet Take 20 mg by mouth at bed time. 1 Active mirtazapine (Remeron) 45 MG tablet Take 45 mg by mouth at bedtime. 3 Active sertraline (Zoloft) 100 MG tablet TAKE 2 TABLETS BY MOUTH ONCE DAILY IN THE MORNING 3 Active traZODone (Desyrel) 50 MG tablet Take 50 mg by mouth if needed at bedtime. 3 Active ondansetron ODT (Zofran-ODT) 4 MG disintegrating tablet TOME YAMILET TABLETA POR V A ORAL CADA OCHO HORAS CUANDO SEA NECESARIO PARA LAS N USEAS Y V MITOS 3 Active Blood Pressure Monitoring (Blood Pressure Cuff) miscIndications:Pr imary hypertension 1 each in the morning. 1 each 3 Active busPIRone (Buspar) 5 MG tablet Take 5 mg by mouth 3 times daily. 4 Active pantoprazole (ProtoNix) 40 MG EC tablet Take 40 mg by mouth 2 times daily. 4 Active omeprazole (PriLOSEC) [address] capsuleIndications :Gastroesophageal reflux disease without esophagitis TAKE 1 CAPSULE BY MOUTH EVERY MORNING 90 capsule 1 4 Active Multiple Vitamin (Multivitamin) tablet TAKE 1 TABLET BY MOUTH EVERY MORNING WITH FOOD 90 tablet 3 4 Active D3 Super Strength 50 MCG (2000 UT) capsule TAKE 1 CAPSULE BY MOUTH EVERY MORNING 90 capsule 3 4 Active lidocaine (Lidoderm) 5 % patch APPLY 1 PATCH TOPICALLY TO SKIN, LEAVE ON FOR 12 HOURS AND OFF FOR 12 HOURS DIRECTED 4 Active sucralfate (Carafate) 1 GM/10ML suspension Take 10 mL (1 g) by mouth every 12 (twelve) hours if needed (stomach pain). 414 mL 3 5 Active methocarbamol (Robaxin) 500 MG tabletIndications: Degenerative disc disease, cervical Take 1 tablet (500 mg) by mouth at bedtime. 60 tablet 3 5 07/15/20 25 Active methylPREDNISolone (Medrol Dospak) 4 MG tabletsIndications :Degenerative disc disease, cervical use as directed on package 5 Active sertraline (Zoloft) 50 MG tabletIndications: Acute depression Take 50 mg by mouth in the morning. 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 Assessment & [...] AM EDT): Recommend drinking more liquids Call [facility] [place] [place] gastroenterology to make a followup appointment EGD [...] & Plan (05/18/2023 9:06 AM EDT): Continue beverly and Fatou prn GI referral CT abdpelvis 11/2022 Assessment & Plan (11/07/2022 1:43 PM EDT): CT abd/pelvis ordered, without contrast due to CKD3 She has complained about this for months/years, now worse Acromioclavicular joint arthritis 11/17/2021 Overview (11/07/2022): moderate on x-ray 2017 moderate on x-ray 2017 Ascending aorta dilatation 11/17/2021 Overview (05/18/2023): 2017 [...] 6:21 AM EST): Upcoming thyroid US at [facility] [place] Congestive heart failure 03/20/2013 Overview (07/18/2023): per [...] Encounters Date Type Department Care Team Description 12/30/2024 Telephone [facility] ADULT DENTAL [address] [place] [address] Waqar Goss DDS SFS for new set of dentures 11/17/2024 2:00 PM EDT Office Visit [facility] MEDICINE [address] [place] [address] Marisabel Delaney MD Degenerative disc disease, cervical [...] Arthritis of right acromioclavicular joint 11/17/2024 Travel from Last 3 Months Immunizations Immunization Administration Dates Next Due Influenza High-dose Quadriva [...] Description 03/17/2025 2:30 PM EDT Office Visit [facility] OPTOMETRY [address] [place], [place] [phone] DurgaMinda majano, OD [address] [place] [address] 03/23/2025 4:00 PM EDT Office Visit [facility] MEDICINE [address] [place] [address] Marisabel Delaney MD [address] [place] [address] Health Maintenance Due Date Last Done Comments [...] 08/15/2025 08/15/2024 Depression Screening 08/15/2025 08/15/2024, 08/15/20 Eye Exam 09/17/2025 09/17/2024, 08/21, 09/17/2024, Additional [...] patient's age to complete this topic Meningococcal B Vaccine Aged Out No l onger eligible based on patient's age to complete [...] Procedure Name Priority Date/Time Associated Diagnosis Comments POCT GLYCATED HEMOGLOBIN, TOTAL Routine 08/15/2024 3:57 PM EST Type 2 diabetes mellitus with diabetic autonomic neuropathy, without long-term current use of insulin ([facility]) ALBUMIN, RANDOM URINE W/CREATININE Routine 05/17/2023 11:08 AM EDT LIPID PANEL, STANDARD Routine 05/16/2023 2:30 PM EDT Type 2 diabetes mellitus with diabetic autonomic neuropathy, without long-term current use of insulin ([facility]) from Last 3 Months or Most Recently Relevant to Health Maintenance Results * POCT HGB A1C (08/15/2024 3:57 PM EST) Hemoglobin A1C 5.9 4.0 - 6.0 % QC Media Lot # [id number] Lot# Expiration Date [id number] Blood 08/15/2024 3:57 PM EST Marisabel Delaney MD POINT OF CARE TEST ENTER/EDIT ORDERABLES Final Result * Albumin, Random Urine W/Creatinine (05/17/2023 11:08 AM EDT) Creatinine, Urine 41.70 mg/dL [facility] Microalbumin Urine 5.0 mg/L [facility] Microalbum Creatinine Ratio Ur 11.9 <30 ug/mg cr [facility] Comment:Albumin/Creatinine R atio Reference Ranges: Normal: < 30 ug/mg creatinine Microalbuminuria: 30 - 300 ug/mg creatinineClinical Albuminuria: > 300 ug/mg creatinine 05/17/2023 11:0 8 AM EDT 05/17/2023 5:26 PM EDT Marisabel Delaney MD LAB URINE ORDERABLES Final Res ult [facility] [address] [place] [phone] * (ABNORMAL) Lipid Panel, Standard (05/16/2023 2:30 PM EDT) Triglycerides 121 <150 mg/dL [facility] Comment:Desirable Triglyceri de: less than 150 mg/dLBorderline High Triglyceride 150-199 mg/dLHigh Triglyceride: 200-499 mg/dLVery High Triglyceride: greater than or equal to 5OO mg/dL Cholesterol 177 <200 mg/dL [facility] Comment:Desirable Cholestero l: less than 200 mg/dLBorderline High Cholesterol: 200-239 mg/dLHigh Cholesterol: greater than 239 mg/dL LDL Cholesterol Calculated 100(H) <100 mg/dL [facility] Comment:Desirable LDL: less than 100 mg/dLNear Optimal/Above Optimal LDL: 110- 129 mg/dLBorderline High LDL: 130-159 mg/dLHigh LDL: 160-189 mg/dLVery High LDL: greater than or equal to 190 mg/dL HDL Cholesterol 53 >40 mg/dL [facility] Comment:Desirable HDL: great er than 40 mg/dL Note: This HDL assay may give artificially low results in patients with liver disease. Blood Venous blood specimen / Unknown 05/16/2023 2:30 PM EDT 05/16/2023 5:17 PM EDT us Marisabel Delaney MD LAB BLOOD ORDERABLES Final Res ult [facility] [address] [place] [address] [phone] from Last 3 Months or Most Recently Relevant to Health Maintenance Insurance [facility] [employer] (O D-SNP) JONATHON VILLAFUERTE [id number] Care Teams Ore Washer Relationship Specialty Start Date End Date Marisabel Delaney MD [address] [place] [id number] PCP - General Family Medicine 04/14/22
--- OUTSIDE RECORDS SUMMARY | 2024-12-31 13:44 | XMS_ITS | Encounter Summary ---
Author Organization [employer] Address [address] [facility] 7[address] [place] [address] Care Team Providers Care Fire Eater Name Role Phone Marisabel Delaney MD Primary Care Provider [phone] Reason for Visit * Reason Onset Date Comments SFS for new set of dentures 12/30/2024 Encounter Details Date Type Department Care Team ([facility] st Contact Info) Description 12/30/2024 Telephone [facility] ADULT DENTAL [address] [place], [place] [phone] Waqar Goss DDS [address], [place] [phone] SFS for new set of dentures Social History Tobacco Use Types Packs/Day Years [...] AM EDT documented as of this encounter Miscellaneous Notes * Telephone Encounter - Betty Wen - 12/30/2024 11:56 AM EDT LVM TO PATIENT GIVING MY # AND REQUESTING A CALL BACK ABOUT SFS. * Telephone Encounter - Yudith Akhtar - 12/30/2024 11:34 AM EDT Patient carries CCA for insurance. Currently not due for new set of dentures. However lost bottom set. Would like to get a whole new set and apply for SFS. Please reach out to patient for assistance documented in this encounter Plan of Treatment Upcoming Encounters Date Type Department Care Team (Late st Contact Info) Description 03/17/2025 2:30 PM EDT Office Visit [facility] OPTOMETRY [address] [place] [address] Minda Calixto, ONIEL [address] [place] [address] 03/23/2025 4:00 PM EDT Office Visit [facility] MEDICINE [address] [place] [address] Marisabel Delaney MD [address] [place] [address] documented as of this encounter Visit Diagnoses Not on filedocumented in this encounter Additional Health Concerns Assessment Noted Time PHQ-9 Depression Total Score: 0 08/15/20 24 3:52 PM EST documented as of this encounter Care Teams Fire Eater Relationship Specialty Start Date End Date Marisabel Delaney MD [address] [place] [address] PCP - General Family Medicine 04/14/22 documented as of this encounter
--- OUTSIDE RECORDS SUMMARY | 2024-12-31 13:44 | XMS_ITS | Encounter Summary ---
Author Organization [facility] Address [address] [facility] [address]t [place] [address] Care Team Providers Care Start Up Specialist Name Role Phone Marisabel Delaney MD Primary Care Provider [phone] Reason for Referral * Consultation (Routine) - Authorized Specialty Diagnoses / Procedures Referred By Contac t Referred To Contact Orthopaedic Surgery Diagnoses Tendinopathy of right rotator cuff Marisabel Delaney MD [address] [place] [address] Phone: tel: fax: [facility] [address] [place] [address] Drive [address] [place], [place] Phone: tel: fax: Referral ID Status Reason Start Date Expiration Date Visits Requested Visits Authorized [id number] Authorized Specialty Services Required 09/04/2024 09/04/2025 1 1 Encounter Details Date Type Department Care Team (Late st Contact Info) Description 09/04/2024 Orders Only [facility] MEDICINE [address] [place] [address] Marisabel Delaney MD [address] [place] [address] Tendinopathy of right rotator cuff (Primary Dx) [...] Description 03/17/2025 2:30 PM EDT Office Visit [facility] OPTOMETRY [address] [place] [address] Minda Calixto, ONIEL [address] [place] [address] 03/23/2025 4:00 PM EDT Office Visit [facility] MEDICINE [address] [place] [address] Marisabel Delaney MD [address] [place] [address] Scheduled Referrals Name Type Priority Associated Diagnoses [...] documented as of this encounter Care Teams Start Up Specialist Relationship Specialty Start Date End Date Marisabel Delaney MD [address] [place] [address] PCP - General Family Medicine 04/14/22 documented as of this encounter
--- OUTSIDE RECORDS SUMMARY | 2024-12-31 13:44 | XMS_ITS | Clinical Summary ---
Author Organization [facility] Address [address] [place] [address] Phone Care Team Providers Care Planning And Analysis Manager Name Role Phone Inés Frances Primary [...] patient's age to complete this topic Insurance [facility] ([id number]) [facility] ([id number]) Care Teams Planning And Analysis Manager Relationship Specialty Start Date End Date Frances Conte PCP - General Family Medicine 07/11/21
--- OUTSIDE RECORDS SUMMARY | 2024-12-31 13:44 | XMS_ITS | Encounter Summary ---
Author Organization [facility] [employer] [facility] Address [address] [facility] [address] [place] [address] Care Team Providers Care Gemologist Name Role Phone Marisabel Delaney MD Primary Care Provider [phone] Encounter Details Date Type Department Care Team (Late st Contact Info) Description 11/30/2022 Orders Only [facility] MEDICINE [address] [place] [phone] Marisabel Delaney MD [address] [place], [place] [phone] Colitis (Primary Dx) Social History Tobacco Use [...] Description 03/17/2025 2:30 PM EDT Office Visit [facility] OPTOMETRY [address] [place], [place] [phone] Minda Calixto, OD [address] [place] [address] 03/23/2025 4:00 PM EDT Office Visit [facility] MEDIC[facility] [address] [place], [place] [phone] Marisabel Delaney MD [address] [place] [address] documented as of this encounter Visit Diagnoses Diagnosis Colitis- Primary Other and unspecified noninfectious gastroenteritis and colitis documented in this encounter Care Teams Gemologist Relationship Specialty Start Date End Date Marisabel Delaney MD [address] [place] [address] PCP - General Family Medicine 04/14/22 documented as of this encounter
--- OUTSIDE RECORDS SUMMARY | 2024-12-31 13:44 | XMS_ITS | Patient Health Record ---
Author Organization [facility] Address [address] [place] [address] Care Team Providers Care Senior Product Designer Name Role Phone Marisabel Delaney M.D. Primary Care Provider UnaFahad Juares Unavailable [phone] Reason For Referral No Information Plan Of Treatment No Information Insurance Providers Payer Name Payer Address Payer Phone Subscriber Number Group Number Insured Name Patient Relationship to Insured Coverage Start Date Coverage End Date [facility] [address] [place] [address] [id number] JEFFERY LOREDO Self - patient is the insured
--- NOTE | 2024-12-31 13:49 | MHC.OFFVIS ---
Vital Signs 12/31/24 14:04 Height 4 ft 11 in Weight 125 lb 3.561 oz BMI 25.3 Intake Visit Reasons: 6 mnth follow up Intake Note: Patient presents for follow up Stitching Machine Feeder Or Offbearer Required: Yes Stitching Machine Feeder Or Offbearer Services: Stitching Machine Feeder Or Offbearer Present Stitching Machine Feeder Or Offbearer Name: juan r linn Information Interpreted: non-clinical & clinical Allergies acetaminophen [Percocet] Allergy (Mild, Verified 12/31/24 14:09) denies oxycodone [Percocet] Allergy (Mild, Verified 12/31/24 14:09) denies HPI HPI 6 mnth follow up: Details: Assessment & Plan (1) Esophageal dysmotility: Comment: Rather severe on barium swallow Code(s): K22.4 - Dyskinesia of esophagus Category: Medical (2) GERD (gastroesophageal reflux disease): Code(s): K21.9 - Gastro-esophageal reflux disease without esophagitis Category: Medical (3) Alzheimer's dementia without behavioral disturbance: Code(s): G30.9 - Alzheimer's disease, unspecified; F02.80 - Dementia in other diseases classified elsewhere, unspecified severity, without behavioral disturbance, psychotic disturbance, mood disturbance, and anxiety Category: Medical (4) Dysphagia: Code(s): R13.10 - Dysphagia, unspecified Category: Medical (5) Odynophagia: Code(s): R13.10 - Dysphagia, unspecified Category: Medical (6) Esophageal candidiasis: Code(s): B37.81 - Candidal esophagitis Category: Medical Plan Erit[place]an #Chris Live She does not remember the EGD, but she does not perceive any change. Her largest complaint is a salty taste in her mouth and a strange taste that she thinks bothers her esophagus. Her tongue also martel. She also has a lot of snorting and possible sinus problems. She also has poorly fitting bottom dentures. Her son who is with her today says this has been a problem for many years with the swallowing. They are aware of safe swallowing precautions, but given the patient's dementia is is unclear how well she can follow these on her own accord. She continues on protonix bid and sucralfate. ROV 4 weeks. Medications: New fluconazole (Diflucan) 200 mg PO DAILY 14 tabs 0RF 14 days B37.81 - Candidal esophagitis TODAY'S VISIT Eritrean #son translates per pt reqeust She continues on protonix bid and sucralfate. They have not heard to schedule the thyroid US New information: 9-10 yrs ago colon perforation at [facility] w/scope. Unsure exact location. BUT pain preceded this but was worse after. No r/t eating or BM. While I can not go back enough in [facility] records to get all the information it does note that her right-sided abdominal pain preceded the colonoscopy. So far, EGD ? gastritis but no improvement with carafate, no improvement with treating for CIC, Unremarkable CT's, Hxof T 12 deformity with no radiologic evidence of Ts, but marked kypohosis and levoscoliosis. She has a bad neck and rt shoulder pain, she has had medrol dose pack in the past but can't remember if thi had any effect on her pain. We could try this again after we eval mariana bentyl. Stop sucralfate, continue pantoprazole Trial bentyl 10mg qid adn XR TS. ROV 3 weeks. [facility] Medical History (Updated 12/31/24 @ 15:38 by ASHLEY Akhtar) Malnourished Right sided abdominal pain Odynophagia Alzheimer disease Thoracic compression fracture Pubic bone fracture Closed fracture of iliac wing Closed rib fracture GERD (gastroesophageal reflux disease) HTN (hypertension) Dementia Diabetes Surgical History H/O colonoscopy History of varicose vein ligation and stripping History of hysterectomy History of cholecystectomy Family History Sister Epilepsy Social History Household Members: None Housing: Apartment Do you presently have visiting nurse or other home services: No Patient Tobacco Use Status: Never used Tobacco Advance Directives Date on File: 02/06/22 service: No Current occupational status: disabled Review of Systems Const Denies fatigue, Denies fever(s), Denies night sweats, Denies poor appetite and Denies weight loss Eyes Details: glasses Reports requires corrective lenses ENT Reports Normal hearing present, Denies dental pain, Denies dysphagia, Denies hearing loss, Denies mouth pain, Reports neck pain, Denies odynophagia, Denies throat swelling, Denies tongue swelling and Reports other (Dentition adequate) Card Reports no additional complaints Resp Reports no additional complaints GI Details: Reports abdominal pain, Denies melena, Denies bloating, Denies hematochezia, Denies constipation, Denies GI cramping, Denies dysphagia, Denies excessive flatus, Denies early satiety, Reports heartburn, Denies diarrhea, Denies nausea, Denies odynophagia, Denies vomiting and Denies hematemesis Musc Reports back pain, Reports myalgias, Reports deformity, Reports neck pain and Reports stiffness Skin/Breast Denies pruritus, Denies lesions, Denies rash and Denies jaundice Neuro Reports Normal hearing present, Denies Abnormal speech present and Reports memory loss Psych Reports memory loss Endo Denies fatigue Aller/Immun Denies throat swelling and Denies tongue swelling Physical Exam Vital Signs: BMI result Body Mass Index 25.3 Const General: cooperative, no acute distress, well developed and well groomed Nutritional Appearance: well nourished, obese and overweight Orientation/consciousness: oriented to person, oriented to place and oriented to time Limitations: No language barrier, ambulation with cane, ambulation with walker and wheelchair HEENT Head: Yes normocephalic and Yes atraumatic Eyes General: appearance normal, both eyes and all related structures Pupils: Equal, round and reactive pupils present Neck Neck: Yes normal visual inspection and Yes no lymphadenopathy Thyroid: Thyroid normal Resp Effort & Inspection: normal respiratory effort and able to speak in complete sentences Auscultation: clear to auscultation bilaterally Cardio Rate: regular rate Rhythm: regular rhythm Heart sounds: Normal, physiologic split S2 sound present Peripheral pulses: radial pulses present and posterior tibial pulses present GI Inspection: No distended and No Abdominal panniculus present Palpation (GI): Soft to palpation, nontender, no guarding, not rigid, No hepatosplenomegaly present and Hepatosplenomegaly present Percussion: Yes normal to percussion Auscultation: normal bowel sounds Rectal Exam - Female: deferred General: Yes no CVA tenderness Back/Spine/Pelvis Other: There is some recreation of the pain when she bends over in the abdomen Back: no CVA tenderness Cervical Spine: loss of normal cervical lordosis, pain with cervical ROM and cervical ROM abnormal Thoracic/Lumbar Spine: kyphosis, paraspinal muscle tenderness, thoraco-lumbar ROM limited, Thoracic/lumbar scoliosis (Marked thoracic levoscoliosis), thoraco-lumbar spasm bilaterally (At T11-T12 L1 severe), thoracic spinal tenderness, lumbar spinal tenderness and No straight leg raise positive Skin General skin exam: no rashes or lesions noted, turgor normal, skin not dry, no jaundice, No spider nevi and no striae Rashes: no rashes Nails: normal Neuro General: oriented to person, oriented to place and oriented to time Cranial nerves: Yes Equal, round and reactive pupils present and Yes Normal hearing present Speech: No Abnormal speech present Extrem General: Yes normal to inspection, No clubbing, No cyanosis and No edema Psych Appearance: grossly normal and well kempt Mental Status: other Speech and movement: Normal speech and movement present Affect: normal affect Attitude: cooperative Thought process: not confabulating and Impoverished thought process present Thought content: Normal thought content present Insight: Limited insight present (Psych) Judgement: Limited judgement present (Psych) Assessment & Plan Assessment & Plan (1) Right sided abdominal pain: Code(s): R10.9 - Unspecified abdominal pain Category: Medical (2) GERD (gastroesophageal reflux disease): Code(s): K21.9 - Gastro-esophageal reflux disease without esophagitis Category: Medical (3) Esophageal dysmotility: Comment: Rather severe on barium swallow Code(s): K22.4 - Dyskinesia of esophagus Category: Medical (4) Dysphagia: Comment: Largely due to esophageal spasm as EGD was unremarkable and no help with dilation Code(s): R13.10 - Dysphagia, unspecified Category: Medical (5) Levoscoliosis of thoracic spine: Code(s): M41.84 - Other forms of scoliosis, thoracic region Category: Medical (6) Kyphosis: Code(s): M40.209 - Unspecified kyphosis, site unspecified Category: Medical Plan [place]an #son translates per pt reqeust She continues on protonix bid and sucralfate. They have not heard to schedule the thyroid US New information: 9-10 yrs ago colon perforation at [facility] w/scope. Unsure exact location. BUT pain preceded this but was worse after. No r/t eating or BM. While I can not go back enough in [facility] records to get all the information it does note that her right-sided abdominal pain preceded the colonoscopy. So far, EGD ? gastritis but no improvement with carafate, no improvement with treating for CIC, Unremarkable CT's, Hxof T 12 deformity with no radiologic evidence of Ts, but marked kypohosis and levoscoliosis. She has a bad neck and rt shoulder pain, she has had medrol dose pack in the past but can't remember if thi had any effect on her pain. We could try this again after we eval mariana bentyl. Stop sucralfate, continue pantoprazole Trial bentyl 10mg qid adn XR TS. ROV 3 weeks. Orders: Orders XR thoracic spine 2V Today R10.9 - Unspecified abdominal pain Medications: New dicyclomine 10 mg PO QID 120 caps 6RF R10.9 - Unspecified abdominal pain Discontinued methocarbamol Discontinued Reason: Patient Completed Course 500 mg PO BEDTIME PRN 7 tabs 0RF pain, moderate methylprednisolone (Medrol (Ricardo)) Take per package instructions. Discontinued Reason: Patient Completed Course 4 mg PO QAM 21 ea 0RF methylprednisolone (Medrol (Ricardo)) Take per package instructions Discontinued Reason: Patient Completed Course 4 mg PO QAM 1 ea 0RF methocarbamol Discontinued Reason: Patient Completed Course 500 mg PO BEDTIME PRN 7 tabs 0RF pain, moderate sucralfate (Carafate) Discontinued Reason: Doctor's Order 20 mL PO QNOON 1,000 mL 3RF R13.10 - Dysphagia, unspecified Coding Level of Care Code Est Pt Level 4 (14957) Diagnoses Right sided abdominal pain R10.9 GERD (gastroesophageal reflux disease) K21.9 Esophageal dysmotility K22.4 Dysphagia R13.10 Levoscoliosis of thoracic spine M41.84 Kyphosis M40.209 Time Spent (min) 36
[2024-12-31 14:04] VITALS: BMI 25.3
== END 2024-12-31 15:25 | disposition home or self-care (01) ==
LOC: HO.HGI 13:39
PROVIDERS: PCP General Practice; Visit Provider Nurse Practitioner
DX: R10.9 Unspecified abdominal pain (principal); K21.9 Gastro-esophageal reflux disease without esophagitis; K22.4 Dyskinesia of esophagus; M41.84 Other forms of scoliosis, thoracic region; M40.209 Unspecified kyphosis, site unspecified
CPT/HCPCS: 99214

== ENCOUNTER 2024-12-31 13:39 | Outpatient (REF) | payer OTHER, SELFPAY ==
--- NOTE | ~2024-12-31 | XR_ITS ---
EXAMINATION: XR THORACIC SPINE CLINICAL INFORMATION: R10.9 - Unspecified abdominal pain COMPARISON: None. Correlation made with CT abdomen and pelvis 06/13/2024. TECHNIQUE: 3 views of the thoracic spine were obtained. FINDINGS: There is an S-shaped kyphoscoliosis of the thoracolumbar spine. Most notable component of scoliosis is levoconvex, apex at L2. Notably exaggerated kyphosis. There is osteopenia present. There is a compression deformity, chronic, of what appears to be the T12 vertebral body. No additional compression fractures. No suspicious bone lesions. Diffuse severe disc degeneration throughout the thoracolumbar spine. Diffuse facet degeneration throughout the thoracolumbar spine. There is probable cardiac enlargement. There are cholecystectomy clips. There are vascular calcifications. XR/XR thoracic spine 2V IMPRESSION: 1. S-shaped kyphoscoliosis of the thoracolumbar spine. Osteopenia. 2. Chronic moderate compression deformity of T12. No additional compression fracture. 3. Osteopenia. 4. Advanced spondylosis of the thoracolumbar spine. Electronically signed by: Khang Canseco MD 01/01/2025 09:23 AM EDT
--- OUTSIDE RECORDS SUMMARY | 2024-12-31 15:42 | XMS_ITS | Clinical Summary ---
Author Organization [employer] Address [address] [place] [address] Care Team Providers Care Phlebotomy Manager Name Role Phone Marisabel Delaney MD Primary Care Provider [phone] Allergies Active Allergy Reactions Criticality Noted Date [...] quality of life, day/night sleep schedule Has DIRECTOR OF PEOPLE hours daily for 2-4 hours Assessment & Plan (02/10/2024 12:58 PM EDT): Continue Donepezil, consider additional agents? Family declines geriatrics consult at this time Her behaviors are not disruptive, but repetitive and perseverating Focus on quality of life, day/night sleep schedule Has DIRECTOR OF PEOPLE hours daily for 2-4 hours Assessment & [...] AM EDT): Recommend drinking more liquids Call [facility] gastroenterology to make a followup appointment EGD [...] 6:21 AM EST): Upcoming thyroid US at [facility] Congestive heart failure 03/20/2013 Overview (07/18/2023): per [...] Type Department Care Team Description 12/30/2024 Telephone [facility] ADULT DENTAL [address] [place] [address] Waqar Goss DDS SFS for new set of dentures 11/17/2024 2:00 PM EDT Office Visit [facility] MEDICINE [address] [place] [address] Marisabel Delaney MD Degenerative disc disease, cervical [...] Description 03/17/2025 2:30 PM EDT Office Visit [facility] OPTOMETRY [address] [place], [place] [phone] DurgaMinda majano, OD [address] [place] [address] 03/23/2025 4:00 PM EDT Office Visit [facility] MEDICINE [address] [place] [address] Marisabel Delaney MD [address] [place] [address] Health Maintenance Due Date Last Done Comments [...] neuropathy, without long-term current use of insulin ([facility]) ALBUMIN, RANDOM URINE W/CREATININE Routine 05/17/2023 11:08 AM EDT LIPID PANEL, STANDARD Routine 05/16/2023 2:30 PM EDT Type 2 diabetes mellitus with diabetic autonomic neuropathy, without long-term current use of insulin ([facility]) from Last 3 Months or Most Recently Relevant to Health Maintenance Results * POCT HGB A1C (08/15/2024 3:57 PM EST) Hemoglobin A1C 5.9 4.0 - 6.0 % QC Media Lot # [id number] Lot# Expiration Date [id number] Blood 08/15/2024 3:57 PM EST Mairsabel Delaney MD POINT OF CARE TEST ENTER/EDIT ORDERABLES Final Result * Albumin, Random Urine W/Creatinine (05/17/2023 11:08 AM EDT) Creatinine, Urine 41.70 mg/dL [facility] Microalbumin Urine 5.0 mg/L [facility] Microalbum Creatinine Ratio Ur 11.9 <30 ug/mg cr [facility] Comment:Albumin/Creatinine R atio Reference Ranges: Normal: < 30 ug/mg creatinine Microalbuminuria: 30 - 300 ug/mg creatinineClinical Albuminuria: > 300 ug/mg creatinine 05/17/2023 11:0 8 AM EDT 05/17/2023 5:26 PM EDT Marisabel Delaney MD LAB URINE ORDERABLES Final Res ult [facility] [address] [place] [phone] * (ABNORMAL) Lipid Panel, Standard (05/16/2023 2:30 PM EDT) Triglycerides 121 <150 mg/dL [facility] Comment:Desirable Triglyceri de: less than 150 mg/dLBorderline High Triglyceride 150-199 mg/dLHigh Triglyceride: 200-499 mg/dLVery High Triglyceride: greater than or equal to 5OO mg/dL Cholesterol 177 <200 mg/dL [facility] Comment:Desirable Cholestero l: less than 200 mg/dLBorderline High Cholesterol: 200-239 mg/dLHigh Cholesterol: greater than 239 mg/dL LDL Cholesterol Calculated 100(H) <100 mg/dL [facility] Comment:Desirable LDL: less than 100 mg/dLNear Optimal/Above Optimal LDL: 110- 129 mg/dLBorderline High LDL: 130-159 mg/dLHigh LDL: 160-189 mg/dLVery High LDL: greater than or equal to 190 mg/dL HDL Cholesterol 53 >40 mg/dL [facility] Comment:Desirable HDL: great er than 40 mg/dL Note: This HDL assay may give artificially low results in patients with liver disease. Blood Venous blood specimen / Unknown 05/16/2023 2:30 PM EDT 05/16/2023 5:17 PM EDT us Marisabel Delaney MD LAB BLOOD ORDERABLES Final Res ult [facility] [address] [place] [phone] from Last 3 Months or Most Recently Relevant to Health Maintenance Insurance [facility] [employer] (O D-SNP) JONATHON VILLAFUERTE [id number] Care Teams Phlebotomy Manager Relationship Specialty Start Date End Date Marisabel Delaney MD [address] [place] [phone] PCP - General Family Medicine 04/14/22
--- OUTSIDE RECORDS SUMMARY | 2024-12-31 15:42 | XMS_ITS | Clinical Summary ---
Author Organization [facility] Address [address] [place] [address] Phone Care Team Providers Care Coach Operator Name Role Phone Inés Frances Primary Care [...] patient's age to complete this topic Insurance [facility] ([id number]) [facility] ([id number]) Care Teams Coach Operator Relationship Specialty Start Date End Date Frances Conte PCP - General Family Medicine 07/11/21
--- OUTSIDE RECORDS SUMMARY | 2024-12-31 15:42 | XMS_ITS | Encounter Summary ---
Author Organization [employer] [facility] Address [address] [place] [address] Care Team Providers Care Shot Bagger Name Role Phone Marisabel Delaney MD Primary Care Provider [phone] Reason for Referral * Consultation (Routine) - Authorized Specialty Diagnoses / Procedures Referred By Contac t Referred To Contact Orthopaedic Surgery Diagnoses Tendinopathy of right rotator cuff Marisabel Delaney MD [address] [place] [address] Phone: tel: fax: [facility] [address] [place] [address] Drive [address] [place], [place] Phone: tel: fax: Referral ID Status Reason Start Date Expiration Date Visits Requested Visits Authorized [id number] Authorized Specialty Services Required 09/04/2024 09/04/2025 1 1 Encounter Details Date Type Department Care Team (Late st Contact Info) Description 09/04/2024 Orders Only [facility] MEDICINE [address] [place] [address] Marisabel Delaney MD [address] [place] [address] Tendinopathy of right rotator cuff (Primary Dx) [...] Description 03/17/2025 2:30 PM EDT Office Visit [facility] OPTOMETRY [address] [place] [address] Minda Calixto, ONIEL [address] [place] [address] 03/23/2025 4:00 PM EDT Office Visit [facility] MEDICINE [address] [place] [address] Mairsabel Delaney MD [address] [place] [address] Scheduled Referrals Name Type Priority Associated Diagnoses [...] documented as of this encounter Care Teams Shot Bagger Relationship Specialty Start Date End Date Marisabel Delaney MD [address] [place] [address] PCP - General Family Medicine 04/14/22 documented as of this encounter
--- OUTSIDE RECORDS SUMMARY | 2024-12-31 15:42 | XMS_ITS | Encounter Summary ---
Author Organization [facility] [employer] [facility] Address [address] [place] [address] Care Team Providers Care Harpoon Engagement Planning Operator Name Role Phone Marisabel Delaney MD Primary Care Provider [phone] Encounter Details Date Type Department Care Team (Late st Contact Info) Description 11/30/2022 Orders Only [facility] MEDICINE [address] [place] [phone] Marisabel Delaney MD [address] [place], [place] [phone] Colitis (Primary Dx) Social History Tobacco Use [...] Description 03/17/2025 2:30 PM EDT Office Visit [facility] OPTOMETRY [address] [place], [place] [phone] Minda Calixto, OD [address] [place] [address] 03/23/2025 4:00 PM EDT Office Visit [facility] MEDICINE [address] [place], [place] [phone] Marisabel Delaney MD [address] [place] [address] documented as of this encounter Visit Diagnoses Diagnosis Colitis- Primary Other and unspecified noninfectious gastroenteritis and colitis documented in this encounter Care Teams Harpoon Engagement Planning Operator Relationship Specialty Start Date End Date Marisabel Delaney MD [address] [place] [address] PCP - General Family Medicine 04/14/22 documented as of this encounter
--- OUTSIDE RECORDS SUMMARY | 2024-12-31 15:42 | XMS_ITS | Encounter Summary ---
Author Organization [employer] Address [address] [facility] [place] [address] Care Team Providers Care Supervisor Stave Cutting Name Role Phone Marisabel Delaney MD Primary Care Provider [phone] Reason for Visit * Reason Onset Date Comments SFS for new set of dentures 12/30/2024 Encounter Details Date Type Department Care Team ([facility] st Contact Info) Description 12/30/2024 Telephone [facility] ADULT DENTAL [address] [place], [place] [phone] Waqar Goss DDS [address] [place], [place] [phone] SFS for new set of dentures Social [...] your housing situation today? I have jennifer aerllano 07/16/[address] you li [...] Description 03/17/2025 2:30 PM EDT Office Visit [facility] OPTOMETRY [address] [place] [address] Minda Calixto, ONIEL [address] [place] [address] 03/23/2025 4:00 PM EDT Office Visit [facility] MEDICINE [address] [place] [address] Marisabel Delaney MD [address] [place] [address] documented as of this encounter Visit Diagnoses Not on filedocumented in this encounter Additional Health Concerns Assessment Noted Time PHQ-9 Depression Total Score: 0 08/15/20 24 3:52 PM EST documented as of this encounter Care Teams Supervisor Stave Cutting Relationship Specialty Start Date End Date Marisabel Delaney MD [address] [place] [address] PCP - General Family Medicine 04/14/22 documented as of this encounter
== END 2024-12-31 13:40 | disposition home or self-care (01) ==
LOC: HO.XRAY 13:39
PROVIDERS: PCP General Practice; Visit Provider Nurse Practitioner
DX: R10.9 Unspecified abdominal pain (principal); K21.9 Gastro-esophageal reflux disease without esophagitis; K22.4 Dyskinesia of esophagus; R13.10 Dysphagia, unspecified; M40.209 Unspecified kyphosis, site unspecified
CPT/HCPCS: 72070; 99212

== ENCOUNTER → 2024-12-31 15:41 | Outpatient (BNV) | payer OTHER, SELFPAY | PROVIDERS: PCP General Practice; Visit Provider Radiology Diagnostic Radiology | DX: M41.86 Other forms of scoliosis, lumbar region (principal) | CPT/HCPCS: 72070 ==

== ENCOUNTER 2025-01-21 08:45 | Outpatient (AMB) | payer OTHER, SELFPAY ==
--- NOTE | 2025-01-21 09:02 | A.OFFVIS_ITS ---
Vital Signs 01/21/25 09:10 Height 4 ft 11 in Weight 125 lb BMI 25.2 BP 134/66 Blood Pressure Location Lt brachial Position Sitting Pulse 76 Pulse Source Pulse Oximeter Pulse Oximetry (%) 95 Oxygen Delivery Method Room Air Intake Visit Reasons: Rt side abd pain Intake Note: Established patient for mgmt of abd pain. 3 week FUV. CC; Family denies any changes to presentation at this time. Business Writer Required: Yes Business Writer Services: Business Writer Present Business Writer Name: Denilson George [id number] Information Interpreted: non-clinical & clinical Accompanied by: Family/Other Allergies acetaminophen [Percocet] Allergy (Mild, Verified 12/31/24 14:09) denies oxycodone [Percocet] Allergy (Mild, Verified 12/31/24 14:09) denies HPI HPI Rt side abd pain: Details: Assessment & Plan (1) Right sided abdominal pain: Code(s): R10.9 - Unspecified abdominal pain Category: Medical (2) GERD (gastroesophageal reflux disease): Code(s): K21.9 - Gastro-esophageal reflux disease without esophagitis Category: Medical (3) Esophageal dysmotility: Comment: Rather severe on barium swallow Code(s): K22.4 - Dyskinesia of esophagus Category: Medical (4) Dysphagia: Comment: Largely due to esophageal spasm as EGD was unremarkable and no help with dilation Code(s): R13.10 - Dysphagia, unspecified Category: Medical (5) Levoscoliosis of thoracic spine: Code(s): M41.84 - Other forms of scoliosis, thoracic region Category: Medical (6) Kyphosis: Code(s): M40.209 - Unspecified kyphosis, site unspecified Category: Medical Plan Austrian #son translates per pt reqeust She continues on protonix bid and sucralfate. They have not heard to schedule the thyroid US New information: 9-10 yrs ago [place] [facility] [place] Unsure exact location. BUT pain preceded this but was worse after. No r/t eating or BM. While I can not go back enough in [facility] records to get all the information it does note that her right-sided abdominal pain preceded the colonoscopy. So far, EGD ? gastritis but no improvement with carafate, no improvement with treating for CIC, Unremarkable CT's, Hxof T 12 deformity with no radiologic evidence of Ts, but marked kypohosis and levoscoliosis. She has a bad neck and rt shoulder pain, she has had medrol dose pack in the past but can't remember if thi had any effect on her pain. We could try this again after we eval mariana bentyl. Stop sucralfate, continue pantoprazole Trial bentyl 10mg qid adn XR TS. ROV 3 weeks. Orders: Orders XR thoracic spine 2V Today R10.9 - Unspecified abdominal pain Medications: New dicyclomine 10 mg PO QID 120 caps 6RF R10.9 - Unspecified abdominal pain Discontinued methocarbamol Discontinued Reason: Patient Completed Course 500 mg PO BEDTIME PRN 7 tabs 0RF pain, moderate methylprednisolone (Medrol (Ricardo)) Take per package instructions. Discontinued Reason: Patient Completed Course 4 mg PO QAM 21 ea 0RF methylprednisolone (Medrol (Ricardo)) Take per package instructions Discontinued Reason: Patient Completed Course 4 mg PO QAM 1 ea 0RF methocarbamol Discontinued Reason: Patient Completed Course 500 mg PO BEDTIME PRN 7 tabs 0RF pain, moderate sucralfate (Carafate) Discontinued Reason: Doctor's Order 20 mL PO QNOON 1,000 mL 3RF R13.10 - Dysphagia, unspecified XR THORACIC SPINE 01/01/2025 FINDINGS: There is an S-shaped kyphoscoliosis of the thoracolumbar spine. Most notable component of scoliosis is levoconvex, apex at L2. Notably exaggerated kyphosis. There is osteopenia present. There is a compression deformity, chronic, of what appears to be the T12 vertebral body. No additional compression fractures. No suspicious bone lesions. Diffuse severe disc degeneration throughout the thoracolumbar spine. Diffuse facet degeneration throughout the thoracolumbar spine. There is probable cardiac enlargement. There are cholecystectomy clips. There are vascular calcifications. XR/XR thoracic spine 2V IMPRESSION: 1. S-shaped kyphoscoliosis of the thoracolumbar spine. Osteopenia. 2. Chronic moderate compression deformity of T12. No additional compression fracture. 3. Osteopenia. 4. Advanced spondylosis of the thoracolumbar spine. TODAY'S VISIT Austrian #Ekta Motta She is here today with her son and dtr in law who give the hx. She continues on protonix bid and sucralfate. I explain that I feel the pain is radicular from her back pain. This is especially true since she had no effect from the bentyl. I advise they can stop it, but if they fefel it is giving any benefit I am not adverse to continuing it. I review the XR, she is seeing a specialist at [address] [place] [address] for a neck injection, so I advise them to discuss the thoracic pain with this specialist as well. They should be able to see the XR. They have given her Tylenol with good effect and ask for an RX I will give for n ow but this should be taken over by the PCP going forward. ROV 6 mos. PFSH Medical History Malnourished Right sided abdominal pain Odynophagia Alzheimer disease Thoracic compression fracture Pubic bone fracture Closed fracture of iliac wing Closed rib fracture GERD (gastroesophageal reflux disease) HTN (hypertension) Dementia Diabetes Surgical History H/O colonoscopy History of varicose vein ligation and stripping History of hysterectomy History of cholecystectomy Family History Sister Epilepsy Social History Household Members: None Housing: Apartment Do you presently have visiting nurse or other home services: No Patient Tobacco Use Status: Never used Tobacco Advance Directives Date on File: 02/06/22 service: No Current occupational status: disabled Review of Systems Const Denies fatigue, Denies fever(s), Denies night sweats, Denies poor appetite and Denies weight loss ENT Reports Normal hearing present, Denies dental pain, Denies dysphagia, Denies hearing loss, Denies mouth pain, Reports neck pain, Denies odynophagia, Denies throat swelling, Denies tongue swelling and Reports other (Dentition adequate) Card Reports no additional complaints Resp Reports no additional complaints GI Details: Reports abdominal pain, Denies melena, Denies bloating, Denies hematochezia, Denies constipation, Denies GI cramping, Denies dysphagia, Denies excessive flatus, Denies early satiety, Reports heartburn, Denies diarrhea, Denies nausea, Denies odynophagia, Denies vomiting and Denies hematemesis Reports flank pain Musc Reports back pain, Reports myalgias, Reports neck pain, Reports radiating pain into limb and Reports stiffness Skin/Breast Denies pruritus, Denies lesions, Denies rash and Denies jaundice Neuro Reports Normal hearing present and Denies Abnormal speech present Endo Denies fatigue Aller/Immun Denies throat swelling and Denies tongue swelling Physical Exam Vital Signs: Last Vital Signs Pulse 76 01/21/25 09:10 BP 134/66 01/21/25 09:10 Pulse Ox 95 01/21/25 09:10 Oxygen Delivery Method Room Air 01/21/25 09:10 BMI result Body Mass Index 25.2 Const General: cooperative, well developed, in distress (Having trouble finding a position of comfort appears mostly back related) moderate and well groomed Nutritional Appearance: well nourished and overweight Orientation/consciousness: oriented to person, oriented to place and oriented to time Limitations: language barrier HEENT Head: Yes normocephalic and Yes atraumatic Eyes General: appearance normal, both eyes and all related structures Pupils: Equal, round and reactive pupils present Neck Neck: Yes normal visual inspection and Yes no lymphadenopathy Thyroid: Thyroid normal Resp Effort & Inspection: normal respiratory effort and able to speak in complete sentences Auscultation: clear to auscultation bilaterally Cardio Rate: regular rate Rhythm: regular rhythm Heart sounds: Normal, physiologic split S2 sound present Peripheral pulses: radial pulses present and posterior tibial pulses present GI Inspection: No distended, No Abdominal panniculus present and Yes obesity Palpation (GI): Soft to palpation, nontender, no guarding, not rigid and No hepatosplenomegaly present Percussion: Yes normal to percussion Auscultation: normal bowel sounds Rectal Exam - Female: deferred Back/Spine/Pelvis Cervical Spine: loss of normal cervical lordosis Thoracic/Lumbar Spine: kyphosis and Thoracic/lumbar scoliosis Skin General skin exam: no rashes or lesions noted, turgor normal, skin not dry, no jaundice, No spider nevi and no striae Rashes: no rashes Nails: normal Neuro General: oriented to person, oriented to place and oriented to time Cranial nerves: Yes Equal, round and reactive pupils present and Yes Normal hearing present Speech: No Abnormal speech present Extrem General: Yes normal to inspection, No clubbing, No cyanosis and No edema Psych Appearance: grossly normal and well kempt Mental Status: other Speech and movement: Normal speech and movement present Affect: Irritable affect present Attitude: cooperative Thought process: not confabulating and Impoverished thought process present Thought content: Normal thought content present Insight: Limited insight present (Psych) Judgement: Limited judgement present (Psych) Assessment & Plan Assessment & Plan (1) Right sided abdominal pain: Code(s): R10.9 - Unspecified abdominal pain Category: Medical (2) Levoscoliosis of thoracic spine: Code(s): M41.84 - Other forms of scoliosis, thoracic region Category: Medical (3) Esophageal dysmotility: Comment: Rather severe on barium swallow Code(s): K22.4 - Dyskinesia of esophagus Category: Medical (4) GERD (gastroesophageal reflux disease): Code(s): K21.9 - Gastro-esophageal reflux disease without esophagitis Category: Medical (5) Thoracic back pain: Code(s): M54.6 - Pain in thoracic spine Category: Medical (6) Compression deformity of vertebra: Comment: Thoracic T12 Code(s): M43.9 - Deforming dorsopathy, unspecified Category: Medical (7) Severe scoliosis: Code(s): M41.9 - Scoliosis, unspecified Category: Medical Plan Austrian #Ekta Motta She is here today with her son and dtr in law who give the hx. She continues on protonix bid and sucralfate. I explain that I feel the pain is radicular from her back pain. This is especially true since she had no effect from the bentyl. I advise they can stop it, but if they feel it is giving any benefit I am not adverse to continuing it. I review the XR, she is seeing a specialist at [address] [place] [address] for a neck injection, so I advise them to discuss the thoracic pain with this specialist as well. They should be able to see the XR. They have given her Tylenol with good effect and ask for an RX I will give for now but this should be taken over by the PCP going forward. ROV 6 mos. Medications: New acetaminophen 500 mg PO QID PRN 90 caps 3RF pain M54.6 - Pain in thoracic spine bisacodyl (Dulcolax (bisacodyl)) 10 mg (2 x 5 mg) PO BEDTIME PRN 60 tabs 3RF constipation 30 days Refilled pantoprazole 40 mg PO BID 60 tabs 6RF K21.9 - Gastro-esophageal reflux disease without esophagitis, R13.10 - Dysphagia, unspecified Coding Level of Care Code Est Pt Level 3 (40858) Diagnoses Right sided abdominal pain R10.9 Levoscoliosis of thoracic spine M41.84 Esophageal dysmotility K22.4 GERD (gastroesophageal reflux disease) K21.9 Thoracic back pain M54.6 Compression deformity of vertebra M43.9 Severe scoliosis M41.9
--- OUTSIDE RECORDS SUMMARY | 2025-01-21 09:02 | XMS_ITS | Patient Health Record ---
Author Organization [facility] Address [address] [place] [address] Care Team Providers Care Shell Fisherman Name Role Phone Marisabel Delaney M.D. Primary Care Provider UnaFahad Juares Unavailable [phone] Reason For Referral No Information Plan Of Treatment No Information Insurance Providers Payer Name Payer Address Payer Phone Subscriber Number Group Number Insured Name Patient Relationship to Insured Coverage Start Date Coverage End Date [facility] [address] [place] [address] [id number] JEFFERY LOREDO Self - patient is the insured
[2025-01-21 09:10] VITALS: BP 134/66; PULSE 76; O2SAT 95; BMI 25.2
== END 2025-01-21 10:19 | disposition home or self-care (01) ==
LOC: HO.HGI 08:48
PROVIDERS: PCP General Practice; Visit Provider Nurse Practitioner
DX: R10.9 Unspecified abdominal pain (principal); M41.84 Other forms of scoliosis, thoracic region; K22.4 Dyskinesia of esophagus; K21.9 Gastro-esophageal reflux disease without esophagitis; M54.6 Pain in thoracic spine; M43.9 Deforming dorsopathy, unspecified; M41.9 Scoliosis, unspecified
CPT/HCPCS: 99213

== ENCOUNTER → 2025-01-21 08:45 | Outpatient (BNVA) | payer OTHER, SELFPAY | PROVIDERS: PCP General Practice; Visit Provider Nurse Practitioner | DX: R10.9 Unspecified abdominal pain (principal); M41.84 Other forms of scoliosis, thoracic region; M41.9 Scoliosis, unspecified; M43.9 Deforming dorsopathy, unspecified; M54.6 Pain in thoracic spine; K22.4 Dyskinesia of esophagus; K21.9 Gastro-esophageal reflux disease without esophagitis | CPT/HCPCS: 99212 ==

== ENCOUNTER 2025-02-10 06:23 | Outpatient (REF) | payer OTHER, SELFPAY ==
--- NOTE | ~2025-02-10 | FL_ITS ---
EXAMINATION: FL GUIDANCE ONLY HISTORY: M47.812 - Spondylosis without myelopathy or radiculopathy, cervical region COMPARISON: None available. TECHNIQUE: Fluoroscopy time: 0.3 minutes. Cumulative Dose: 1.00 mGy. DAP: 0.0147 mGym2 Images: 3. FINDINGS: Fluoroscopic spot films of the neck in the AP projection demonstrate needles and contrast material in the region of multiple right-sided facet joints. FL/FL guidance in treatment room IMPRESSION: Fluoroscopy during procedure. Please see procedure report for additional information. Electronically signed by: Fahad Murguia MD 02/10/2025 12:24 PM EDT
--- OUTSIDE RECORDS SUMMARY | 2025-02-10 06:26 | XMS_ITS | Patient Health Record ---
Author Organization [facility] Address [address] [place] [address] Care Team Providers Care Pediatric Social Worker Name Role Phone Marisabel Delaney M.D. Primary Care Provider UnaFahad Juares Unavailable [phone] Reason For Referral No Information Plan Of Treatment No Information Insurance Providers Payer Name Payer Address Payer Phone Subscriber Number Group Number Insured Name Patient Relationship to Insured Coverage Start Date Coverage End Date [facility] [address] [place] [address] [id number] JEFFERY LOREDO Self - patient is the insured
== END 2025-02-10 06:24 | disposition home or self-care (01) ==
LOC: CF 06:23
PROVIDERS: Visit Provider Anesthesiology
DX: M47.812 Spondylosis without myelopathy or radiculopathy, cervical region (principal)
CPT/HCPCS: 64490; 64491; J2003; J2795; Q9967

== ENCOUNTER 2025-02-10 10:06 | Outpatient (AMB) | payer OTHER, SELFPAY ==
--- NOTE | 2025-02-10 10:09 | MHC.OFFVIS ---
Vital Signs 02/10/25 10:13 BP 117/66 Blood Pressure Location Lt brachial Position Sitting Respiration 16 Pulse 70 Pulse Source Pulse Oximeter Pulse Oximetry (%) 96 Oxygen Delivery Method Room Air Intake Visit Reasons: RIGHT DIAGNOSTIC C3, C4, C5, C6 MBB Allergies acetaminophen (Percocet) Allergy (Mild, Verified 12/31/24 14:09) denies oxycodone (Percocet) Allergy (Mild, Verified 12/31/24 14:09) denies PFSH Medical History Malnourished Right sided abdominal pain Odynophagia Alzheimer disease Thoracic compression fracture Pubic bone fracture Closed fracture of iliac wing Closed rib fracture GERD (gastroesophageal reflux disease) HTN (hypertension) Dementia Diabetes Surgical History H/O colonoscopy History of varicose vein ligation and stripping History of hysterectomy History of cholecystectomy Family History Sister Epilepsy Social History Household Members: None Housing: Apartment Do you presently have visiting nurse or other home services: No Patient Tobacco Use Status: Never used Tobacco Advance Directives Date on File: 02/06/22 service: No Current occupational status: disabled Physical Exam Vital Signs: Last Vital Signs Pulse 70 02/10/25 10:13 Resp 16 02/10/25 10:13 BP 117/66 02/10/25 10:13 Pulse Ox 96 02/10/25 10:13 Oxygen Delivery Method Room Air 02/10/25 10:13 Assessment & Plan Assessment & Plan (1) Cervical spondylosis: Code(s): M47.812 - Spondylosis without myelopathy or radiculopathy, cervical region Category: Medical Plan C3, C4, C5, C6 right side medial branch block diagnosticAvis Camacho is very pleasant 84 years old female who is suffering among other things from spondylosis of the cervical spine.. She came today to the operating room to receive diagnostic injection as above. Risks and benefits were carefully explained to the patient were risks of bleeding infection peripheral nerve damage spinal cord damage and headache were explained to the patient. She was taken to the operating room and positioned prone on operating table with a pillow under her head. Her posterior neck and upper back were prepped with ChloraPrep and draped with sterile self adhesive utility towels. Time-out was performed delineating name and date of of the patient nature of the procedure side and site of the procedure. C-arm was brought over the operating field and sq picture of the C3, C4, C5, C6 vertebra were delineated on the screen. The lateral masses on the right of above-mentioned vertebra were chosen as the target of the injection. The waistline of the each of the lateral mass was chosen as the endpoint of the needle advancement. After that the projection of the points of interest to the skin were injected with small amount of mixture of lidocaine 2% and ropivacaine 0.5% one-to-one. After that 3 22 gauge 3-1/2 inch needles were driven sequentially to the points of interest under tunnel vision fashion. When the tips of the needles gently contacted the bone injection of the contrast was performed delineating no intrathecal or intravascular spread of the contrast. After that small amount of ropivacaine 0.5% less than 1 cc was injected into each needle location. Upon completion of the injections needles were removed sterile Band-Aid was applied. The patient tolerated procedure well. Orders: Orders FL guidance in treatment room Today M47.812 - Spondylosis without myelopathy or radiculopathy, cervical region Coding Level of Care Code Procedure Only Diagnoses Cervical spondylosis M47.812
[2025-02-10 10:13] VITALS: BP 117/66; PULSE 70; RESP 16; O2SAT 96
== END 2025-02-10 11:16 | disposition home or self-care (01) ==
LOC: HO.PMCPRC 10:06
PROVIDERS: PCP General Practice; Visit Provider Anesthesiology
DX: M47.812 Spondylosis without myelopathy or radiculopathy, cervical region (principal)
CPT/HCPCS: 64490; 64491

== ENCOUNTER 2025-02-13 12:49 | Outpatient (AMB) | payer OTHER, SELFPAY ==
--- NOTE | 2025-02-13 12:53 | A.OFFVIS_ITS ---
Vital Signs 02/13/25 12:54 Height 4 ft 11 in Weight 125 lb BMI 25.2 BP 119/68 Blood Pressure Location Lt brachial Position Sitting Respiration 16 Pulse 83 Pulse Source Pulse Oximeter Pulse Oximetry (%) 96 Oxygen Delivery Method Room Air Intake Visit Reasons: RIGHT DIAGNOSTIC C3, C4, C5, C6 MBB Instrumentation Manager Required: Yes Instrumentation Manager Name: Chris [id number] Accompanied by: Self / Same As Patient Allergies acetaminophen (Percocet) Allergy (Mild, Verified 02/13/25 12:58) denies oxycodone (Percocet) Allergy (Mild, Verified 02/13/25 12:58) denies HPI Comments Details: The patient is an 84-year-old female presenting with cervical arthritis and associated pain. She underwent diagnostic injections in her neck three days ago to evaluate the source of her pain, suspected to be due to arthritis in the cervical joints. The injections were meant to provide temporary relief and help determine if the pain originates from the arthritic joints. After the procedure, the patient reported that the pain, which initially subsided, returned shortly thereafter, radiating from her neck to her arm and face. The pain is persistent and affects the right side of her body. Additionally, the patient experiences pain in the thoracic spine, which is distinct from the cervical pain. She has been managing these pain issues for several years, with various medications tried with limited success. - Onset: Pain returned shortly after initial relief from injections. - Quality: Persistent pain affecting the right side of the body. - Location: Radiates from neck to arm and face. - Exacerbating factors: Pain returns after initial relief from injections. - Relieving factors: Temporary relief from diagnostic injections. - Affect: Pain impacts daily activities and quality of life. - Analgesia: Diagnostic injections provided temporary relief; various medications tried with limited success. - Adverse Effects: None reported from current pain management strategies. - Activities of Daily Living: Pain affects the right side of the body, impacting daily functions. - Aberrant Drug Related Behaviors: None reported. [facility] Medical History Malnourished Right sided abdominal pain Odynophagia Alzheimer disease Thoracic compression fracture Pubic bone fracture Closed fracture of iliac wing Closed rib fracture GERD (gastroesophageal reflux disease) HTN (hypertension) Dementia Diabetes Surgical History H/O colonoscopy History of varicose vein ligation and stripping History of hysterectomy History of cholecystectomy Family History Sister Epilepsy Social History Household Members: None Housing: Apartment Do you presently have visiting nurse or other home services: No Patient Tobacco Use Status: Never used Tobacco Advance Directives Date on File: 02/06/22 service: No Current occupational status: disabled Review of Systems Const Details: - Musculoskeletal: Reports persistent pain in the neck radiating to the arm and face, and thoracic spine pain. - Neurological: Denies any new neurological deficits. Physical Exam Vital Signs: Last Vital Signs Pulse 83 02/13/25 12:54 Resp 16 02/13/25 12:54 BP 119/68 02/13/25 12:54 Pulse Ox 96 02/13/25 12:54 Oxygen Delivery Method Room Air 02/13/25 12:54 BMI result Body Mass Index 25.2 General: awake, alert. Answers questions appropriately. Frail, elderly. Appears stated age. Skin: warm, dry, intact HEENT: Normocephalic. Hearing intact. Cardiac: External chest normal in appearance. Respiratory: No cough, audible wheezing or stridor. Abdomen: without gross distension. MS: No obvious swelling or deformities. Able to transition from sit to stand unassisted. Neurological: Oriented to person, place, time and situation. Thought process intact. Psychiatric: Appropriate mood and affect. Good judgment and insight. Results Reviewed Results Reviewed: 08/31/24 XR CS Findings: Mild multilevel anterolisthesis and retrolisthesis, degenerative. No fracture. The vertebral body heights are preserved. There is severe intervertebral disc space narrowing C5/C6 and C6/C7. Otherwise mild intervertebral disc space narrowing. [id number] multilevel endplate osteophytosis and uncovertebral joint and facet hypertrophy. No prevertebral soft tissue swelling. Impression: No acute findings. Severe lower cervical degenerative change. Assessment & Plan Assessment & Plan (1) Cervical spondylosis: Code(s): M47.812 - Spondylosis without myelopathy or radiculopathy, cervical region Category: Medical (2) Chronic neck pain: Code(s): M54.2 - Cervicalgia; G89.29 - Other chronic pain Category: Medical (3) Right shoulder pain: Code(s): M25.511 - Pain in right shoulder Category: Medical (4) Cervical radiculopathy: Code(s): M54.12 - Radiculopathy, cervical region Category: Medical Plan The plan involves ordering an MRI of the neck to evaluate nerve involvement and ascertain the cause of the pain. Insurance approval will be obtained, and the patient will be scheduled for the MRI once approved. Further treatment options will be considered based on the MRI results, potentially involving more permanent interventions. Patient was informed and verbally consented to the use of an ambient scribe for clinic note documentation during this visit. Orders: Orders MR cervical spine wo con Today M47.812 - Spondylosis without myelopathy or radiculopathy, cervical region, M54.12 - Radiculopathy, cervical region Patient Instructions: - Await a call for MRI scheduling once insurance approval is obtained. - Monitor pain levels and report any significant changes. Coding Level of Care Code Est Pt Level 3 (48413) Complex EM visit Add On G2211 Diagnoses Cervical spondylosis M47.812 Chronic neck pain M54.2; G89.29 Right shoulder pain M25.511 Cervical radiculopathy M54.12
[2025-02-13 12:54] VITALS: BP 119/68; PULSE 83; RESP 16; O2SAT 96; BMI 25.2
--- OUTSIDE RECORDS SUMMARY | 2025-02-13 13:24 | XMS_ITS | Patient Health Record ---
Author Organization [facility] Address [address] [place] [address] Care Team Providers Care Mandarin Speaking Nanny Name Role Phone Marisabel Delaney M.D. Primary Care Provider UnaFahad Juares Unavailable [phone] Reason For Referral No Information Plan Of Treatment No Information Insurance Providers Payer Name Payer Address Payer Phone Subscriber Number Group Number Insured Name Patient Relationship to Insured Coverage Start Date Coverage End Date [facility] [address] [place] [address] [id number] JEFFERY LOREDO Self - patient is the insured
== END 2025-02-13 13:36 | disposition home or self-care (01) ==
LOC: HO.PMC 12:50
PROVIDERS: PCP General Practice; Visit Provider Registered Nurse Emergency
DX: M47.812 Spondylosis without myelopathy or radiculopathy, cervical region (principal); M54.2 Cervicalgia; G89.29 Other chronic pain; M25.511 Pain in right shoulder; M54.12 Radiculopathy, cervical region
CPT/HCPCS: 99213; G2211

== ENCOUNTER → 2025-02-13 12:49 | Outpatient (BNVA) | payer OTHER, SELFPAY | PROVIDERS: PCP General Practice; Visit Provider Registered Nurse Emergency | DX: M47.812 Spondylosis without myelopathy or radiculopathy, cervical region (principal); M54.2 Cervicalgia; M25.511 Pain in right shoulder; M54.12 Radiculopathy, cervical region | CPT/HCPCS: 99212 ==

== ENCOUNTER → 2025-03-04 09:56 | Outpatient (BNV) | payer OTHER, SELFPAY | PROVIDERS: Visit Provider Radiology Diagnostic Radiology | DX: M47.812 Spondylosis without myelopathy or radiculopathy, cervical region (principal) | CPT/HCPCS: 72141 ==

== ENCOUNTER 2025-03-04 09:57 | Outpatient (REF) | payer OTHER, SELFPAY ==
--- NOTE | ~2025-03-04 | MR_ITS ---
EXAMINATION: MR CERVICAL SPINE WITHOUT CONTRAST CLINICAL INFORMATION: Spondylosis without myelopathy or radiculopathy, cervical region. COMPARISON: Correlated to x-ray dated August 31, [address] dated January 13, 2022. TECHNIQUE: MRI of the cervical spine was obtained using routine sequences without contrast. FINDINGS: Craniocervical junction is intact. Normal position of the cerebellar tonsils. No bone marrow STIR signal abnormality. Focal hyperintense T2 signal in the non free margin preepiglottic region. Marginal osteophyte formation and disc desiccation decreased intervertebral disc height at C5-6 and C6-7 level. Grade 1 retrolisthesis C5-6 and C6-7. Grade 1 anterolisthesis C4-5 and C7-T1. Modic type II endplate changes at C5-6 and C6-7 levels. Buckling deformity of the dorsal aspect of the thecal sac secondary to ligamentum flavum hypertrophy at C5-6 and C6-7 levels. Cervical spinal cord signal is normal. C2-3: No disc herniation. No neuroforamina stenosis. C3-4: No disc herniation. No neuroforamina stenosis. C4-5: Grade 1 anterolisthesis. Broad-based disc osteophyte compresses formation. No cord compression. No neuroforamina stenosis. C5-6: Grade 1 retrolisthesis abutting the spinal cord. No cord compression. Right neuroforamina and stenosis on a degenerative basis. C6-7: Grade 1 retrolisthesis abutting the cord and left neuroforamina and stenosis on a degenerative basis. C7-T1: Grade 1 anterolisthesis. No cord compression. No neuroforamina stenosis. No prevertebral compartment hematoma, mass or fluid collection. Flow-void signal within the main vessels is normal. Left vertebral artery is dominant. MR/MR cervical spine wo con IMPRESSION: Multilevel cervical spondylosis C4 C7 pronounced at C5-6 and C6-7 abutting the cord without cord edema and or myelopathy. Cystic lesion in the preepiglottic nonfree margin. Electronically signed by: Jhonatan Montemayor MD 03/04/2025 10:51 AM EDT
--- OUTSIDE RECORDS SUMMARY | 2025-03-04 10:34 | XMS_ITS | Clinical Summary ---
Author Organization [facility] Address [address] [place] [address] Phone Care Team Providers Care Coil Winder Repair Name Role Phone Inés Frances Primary Care [...] Diabetes: Visual Foot Exam 08/17/2021 Influenza Vaccine (#1) 2025 9, 07/15/2018, 06/10/2013, Additional history exists Pneumococcal Vaccine: 50+ Years Completed 04/07/2020, 09/01/2009 Hepatitis B Vaccine Aged Out No longe r eligible based on patient's age to complete this topic Insurance [facility] ([id number]) [facility] ([id number]) Care Teams Coil Winder Repair Relationship Specialty Start Date End Date Frances Conte PCP - General Family Medicine 07/11/21
--- OUTSIDE RECORDS SUMMARY | 2025-03-04 10:34 | XMS_ITS | Encounter Summary ---
Author Organization [employer] [facility] Address [address] 7[address] [place] [address] Care Team Providers Care Company Driver Name Role Phone Marisabel Delaney MD Primary Care Provider [phone] Reason for Referral * Consultation (Routine) - Authorized Specialty Diagnoses / Procedures Referred By Contac t Referred To Contact Orthopaedic Surgery Diagnoses Tendinopathy of right rotator cuff Marisabel Delaney MD [address] [place] [address] Phone: tel: fax: [facility] [address] [place] [address] Drive [address] [place], [place] Phone: tel: fax: Referral ID Status Reason Start Date Expiration Date Visits Requested Visits Authorized [id number] Authorized Specialty Services Required 09/04/2024 09/04/2025 1 1 Encounter Details Date Type Department Care Team (Late st Contact Info) Description 09/04/2024 Orders Only [facility] MEDICINE [address] [place] [address] Marisabel Delaney MD [address] [place] [address] Tendinopathy of right rotator cuff (Primary Dx) [...] Description 03/17/2025 2:30 PM EDT Office Visit [facility] OPTOMETRY [address] [place] [address] Minda Calixto, OD [address] [place] [address] 03/23/2025 4:00 PM EDT Office Visit [facility] MEDICINE [address] [place] [address] Marisabel Delaney MD [address] [place] [address] 04/09/2025 1:30 PM EDT Office Visit [facility] ADULT DENTAL [address] [place] [address] Asad Duffy DMD [address] [place] [address] Scheduled Referrals Name Type Priority Associated Diagnoses [...] documented as of this encounter Care Teams Company Driver Relationship Specialty Start Date End Date Marisabel Delaney MD [address] [place] [address] PCP - General Family Medicine 04/14/22 documented as of this encounter
--- OUTSIDE RECORDS SUMMARY | 2025-03-04 10:34 | XMS_ITS | Patient Health Record ---
Author Organization [facility] Address [address] [place] [address] Care Team Providers Care Paper Spooler Name Role Phone Marisabel Delaney M.D. Primary Care Provider UnaFahad Juares Unavailable [phone] Reason For Referral No Information Plan Of Treatment No Information Insurance Providers Payer Name Payer Address Payer Phone Subscriber Number Group Number Insured Name Patient Relationship to Insured Coverage Start Date Coverage End Date [facility] [address] [place] [address] [id number] JEFFERY LOREDO Self - patient is the insured
== END 2025-03-04 09:58 | disposition home or self-care (01) ==
LOC: HO.MRI 09:57
PROVIDERS: Visit Provider Registered Nurse Emergency
DX: M47.812 Spondylosis without myelopathy or radiculopathy, cervical region (principal); M54.12 Radiculopathy, cervical region
CPT/HCPCS: 72141

== ENCOUNTER 2025-03-23 17:23 | Emergency (ER) | payer OTHER, SELFPAY ==
--- NOTE | ~2025-03-23 | CT_ITS ---
CLINICAL HISTORY: hx diverticulitis, RLQ abd pain CT abdomen and pelvis with contrast Comparison: CT of the abdomen and pelvis from 06/13/2024 Findings: Small bilateral pleural effusions with underlying atelectasis/consolidation of the imaged lung bases superimposed on chronic lung disease. Dhyttzyc-ep-oeouhe cardiomegaly is redemonstrated with multi chamber enlargement of the heart. Gallbladder is surgically absent. Mild adrenal hyperplasia. Spleen is nonenlarged. Moderate volume loss of the pancreas. No hydronephrosis. No small bowel obstruction. Wall thickening of the large intestine is nonspecific and concerning for colitis and diverticulitis, including the sigmoid colon. Imaged appendix is mildly patulous and measuring at the upper limits of normal without definite acute appendicitis (imaged 39 of series 3). Calcified and noncalcified plaque involving the imaged aorta and its branches. Small mesenteric lymph nodes are nonspecific and likely reactive. Fluid in the abdomen and pelvis may be reactive and/or secondary to colitis and diverticulitis. Uterus is anteverted. No adnexal soft tissue mass by CT. Mild wall thickening of the urinary bladder is nonspecific. Redemonstration of the chronic appearing old pelvis deformities including healed/remodeled comminuted right-sided pubic rami fractures. Mild-moderate osteoarthritis of the both hips. Imaged vertebral height losses including moderate height loss of the T12 appear old/chronic and accentuated by Schmorl's nodes. Facet arthropathy is multifocal. CT findings of spinal stenosis including multifocal foraminal narrowing, including imaged lumbosacral junction. Vacuum disc phenomenon is multifocal. Partial transitional vertebral anatomy of the lumbosacral junction. IMPRESSION: 1. Wall thickening of the large intestine is nonspecific and concerning for comminution of the colitis and diverticulitis, including sigmoid colon. 2. No small bowel obstruction. This document has been electronically signed by: Piyush Phillip MD on 03/24/2025 02:41:08
[2025-03-23 17:29] VITALS: BP 147/70; PULSE 64; RESP 16; TEMP 36.9; O2SAT 97; BMI 26.3
--- NOTE | 2025-03-23 17:33 | ED.GENADULT ---
HPI - General Adult General Chief complaint: Abdominal Pain Stated complaint: PCP called to send her over for infection Time Seen by Provider: 03/23/25 23:00 Source: patient, family, RN notes reviewed and old records reviewed Mode of arrival: ambulatory Limitations: language barrier and other (History of dementia) History of Present Illness ED Provider: Dr. Kaitlyn Carlson HPI narrative: 84-year-old female with a history of dementia, CKD, CHF, GERD presenting with right lower quadrant abdominal pain radiating up to her chest ongoing for ?months? and worsening over the last week or so. Was seen at her primary care doctor's office today in follow-up regarding an appointment she had at the spine doctors for an injection in her neck. She has chronic neck pain and cervical radiculopathy and had an injection about a week ago for this reason. Describes no real change in her pain. At the primary care doctor's office today, she complained of right lower quadrant abdominal pain and was concerned she might be coming down with another episode of diverticulitis. Her daughter reports that she had been seen at [facility] Emergency Department several months ago and diagnosed with diverticulitis. She was given a course of antibiotics but was never hospitalized. Admits her symptoms today are similar to those including chills, right lower quadrant abdominal pain, decreased appetite and nausea. No reported vomiting. No reported diarrhea. Her last bowel movement was several days ago which was also a symptom of her previous episode of diverticulitis. Patient was ultimately sent to the emergency department for evaluation of this abdominal pain. No measured fever at home. No dysuria or hematuria. Related Data Home Medications ?Medication ?Instructions ?Recorded ?Confirmed cholecalciferol (vitamin D3) 50 1 cap PO QAM 01/13/22 12/05/24 mcg (2,000 unit) capsule donepezil 10 mg tablet 1 tab PO BEDTIME 01/13/22 12/05/24 mirtazapine 45 mg tablet 1 tab PO BEDTIME 01/13/22 12/05/24 sertraline 100 mg tablet 2 tab PO QAM 01/13/22 12/05/24 trazodone 50 mg tablet 0.5 tab PO BEDTIME PRN Insomnia 01/13/22 12/05/24 ibuprofen 200 mg capsule (Advil 200 mg PO Q6H PRN 06/25/24 12/05/24 Liqui-Gel) lidocaine 5 % topical patch 1 patch topical DAILY 06/25/24 12/05/24 Previous Rx's ?Medication ?Instructions ?Recorded ondansetron 4 mg disintegrating 4 mg PO Q8H PRN nausea and 07/07/23 tablet vomiting #20 tabs diclofenac sodium 1 % topical gel 2 g topical QID #100 grams 12/05/24 dicyclomine 10 mg capsule 10 mg PO QID #120 caps 12/31/24 acetaminophen 500 mg capsule 500 mg PO QID PRN pain #90 caps 01/21/25 bisacodyl 5 mg tablet,delayed 10 mg (2 x 5 mg) PO BEDTIME PRN 01/21/25 release (Dulcolax (bisacodyl)) constipation 30 days #60 tabs pantoprazole 40 mg tablet,delayed 40 mg PO BID #60 tabs 01/21/25 release amoxicillin 875 mg-potassium 1 tab PO BID 10 days #20 tabs 03/24/25 clavulanate 125 mg tablet dicyclomine 20 mg tablet 20 mg PO TID #10 tabs 03/24/25 Allergies Allergy/AdvReac Type Severity Reaction Status Date / Time oxycodone (Percocet) Allergy Mild denies Verified 03/23/25 17:34 Review of Systems Review of Systems: as per HPI, full review of systems performed and negative but for the above mentioned pertinent positives and negatives. [facility] Past Medical History [facility] Narrative: dementia, CKD, CHF, GERD Source: obtained from family Medical History Malnourished Right sided abdominal pain Odynophagia Alzheimer disease Thoracic compression fracture Pubic bone fracture Closed fracture of iliac wing Closed rib fracture GERD (gastroesophageal reflux disease) HTN (hypertension) Dementia Diabetes Surgical History H/O colonoscopy History of varicose vein ligation and stripping History of hysterectomy History of cholecystectomy Family History Family History Sister Epilepsy Social History Social History Household Members: None Housing: Apartment Do you presently have visiting nurse or other home services: No Patient Tobacco Use Status: Never used Tobacco Smoked in Last 30 Days: No Use of substances other than those prescribed or required for medical reasons: No Advance Directives: Yes Advance Directives on File: Yes Advance Directives Date on File: 02/06/22 service: No Current occupational status: disabled Physical Exam ED Exam Exam: GENERAL: Chronically ill-appearing, conversant, no acute distress. SKIN: Normal skin color for ethnicity, warm, dry, no rashes noted. HEENT: Normocephalic, atraumatic, no stridor, posterior oropharynx nonerythematous, EOMI. NECK: Soft, supple, full ROM, midline structures nontender, no step-offs, no deformities, no lymphadenopathy. CHEST: Heart regular rate and rhythm, no murmurs, symmetric chest rise and fall. PULMONARY: Clear to auscultation bilaterally, no labored breathing, no wheezes/rhales/ rhonchi. ABDOMINAL: Soft, nondistended, diffusely tender to palpation with voluntary guarding, positive bowel sounds in all quadrants. : Deferred. MUSCULOSKELETAL: Normal tone, full range of motion, no deformities, no peripheral edema. NEURO: Alert and oriented to person, CN II through XII intact, no focal neurologic deficits. PSYCHIATRIC: Flat affect, fluid speech, appropriate demeanor. Vital Signs: Vital Signs - 24 hr 03/23/25 17:29 03/24/25 00:26 Temperature 98.5 F 98.2 F Pulse Rate 64 57 Respiratory Rate 16 16 Blood Pressure 147/70 H 114/73 Pulse Oximetry 97 95 Oxygen Delivery Method Room Air Room Air BMI result Body Mass Index 26.3 Course Course Course Narrative: RME performed by Cristina Lucas PA-C. Patient is an 84 year old assigned female at presenting to the emergency department with abdominal pain and a history of diverticulosis. Detailed physical exam and review of systems are deferred to the facility technician. Labs ordered. Patient placed back in the waiting room pending room availability and results. Medications Administered Discontinued Medications Generic Name Dose Route Start Last Admin Trade Name Freq PRN Reason Stop Dose Admin Lactated Ringer's 500 mls @ 999 mls/hr 03/24/25 00:15 03/24/25 01:31 Lr IV 03/24/25 00:45 Infused .Q31M JOSE FRANCISCO Infusion Iohexol 85 ml 03/24/25 01:02 03/24/25 01:03 Iohexol 350 Mg/Ml 100 Ml Infus..Btl IV 03/24/25 01:03 85 ml ONCE ONE Administration Morphine Sulfate 2 mg 03/24/25 00:11 03/24/25 00:27 Morphine Sulfate 2 Mg/Ml Cartridge IVPUSH 03/24/25 00:12 2 mg ONCE ONE Administration Protocol Ondansetron HCl 4 mg 03/24/25 00:11 03/24/25 00:27 Ondansetron Hcl 4 Mg/2 Ml Vial IVPUSH 03/24/25 00:12 4 mg ONCE ONE Administration Medical Decision Making Medical Decision Making [facility] Narrative: This patient presents today with a chief complaint of abdominal pain. Differential diagnosis for this patient is broad.? It includes appendicitis, cholecystitis, bowel obstruction, diverticulitis, peptic ulcer disease, pyelonephritis, vascular pathology, among many others.? A broad-based workup based on history and physical examination was obtained. ? Patient was given morphine for pain control. ? 3:01 AM 03/24/2025 (Dr. Kaitlyn Carlson, D.O.) CT shows evidence of colitis/diverticulitis. Medicated with Augmentin. Patient is feeling significantly improved after morphine. Stable for discharge to follow up with primary care. Differential Diagnosis Differential Diagnoses: The differential diagnosis associated with the presentation includes (as above) Admission/Observation Consideration of admission/observation: Escalation of care including admission/observation considered Lab Data [facility] Lab Attestation statement: I reviewed the patient's lab results. 03/23/25 18:16 03/23/25 18:16 Labs: Lab Results 03/23/25 03/23/25 Range/Units 18:14 18:16 WBC 7.2 (4.8-10.8) X10*3/uL RBC 3.78 L (4.20-5.50) X10*6/uL Hgb 11.8 L (12.0-16.0) g/dl Hct 35.9 L (37.0-47.0) % MCV 95.0 (80.0-98.0) fL MCH 31.2 (27.0-33.0) pg MCHC 32.9 (31.0-35.0) g/dl RDW 12.7 (11.0-16.0) % Plt Count 167 (160-400) X10*3/uL MPV 9.9 (9.4-12.3) fL Immature Gran % (Auto) 0.1 (0.0-0.4) % Neut % (Auto) 55.3 (45-73) % Lymph % (Auto) 33.5 (20-40) % Polk % (Auto) 8.8 (2-11) % Eos % (Auto) 1.7 (0-4) % Baso % (Auto) 0.6 (0-2) % Lymph # (Auto) 2.4 (1.2-4.9) X10*3/uL Polk # (Auto) 0.6 (0.1-1.2) X10*3/uL Eos # (Auto) 0.1 (0.0-0.4) X10*3/uL Baso # (Auto) 0.0 (0.0-0.2) X10*3/uL Abs Immat Gran (auto) 0.01 (0.00-0.03) X10*3/uL Absolute Neuts (auto) 4.0 (2.0-8.3) x10*3/uL Absolute Nucleated RBC 0.000 (0.0-0.012) X10*3/uL Nucleated RBC % (auto) 0.0 (0.0-0.2) /100WBC Sodium 143 (135-145) mmol/L Potassium 4.3 D (3.3-5.1) mmol/L Chloride 106 (96-108) mmol/L Carbon Dioxide 31 H (22-29) mmol/L Anion Gap 10 L (12-20) BUN 23 H (9-16) mg/dL Creatinine 0.92 (0.5-1.4) mg/dL Estim Creat Clear Calc 34.3 Estimated GFR 58 Random Glucose 102 (60-115) mg/dL Calcium 9.2 (8.4-10.2) mg/dL Magnesium 2.1 (1.6-2.6) mg/dL Total Bilirubin 0.5 (0.0-1.0) mg/dL AST 31 (5-31) U/L ALT 19 (0-31) U/L Alkaline Phosphatase 60 (39-117) U/L Total Protein 7.4 (6.5-8.0) g/dL Albumin 4.1 (3.5-5.0) g/dL Urine Color Dark Yellow Urine Appearance Clear Urine pH 5.5 (5.0-9.0) Ur Specific [place] 1.025 (1.005-1.025) Urine Protein Negative (Neg-Trace) mg/dL Urine Glucose (UA) Negative (Negative) mg/dL Urine Ketones Trace (Negative) mg/dL Urine Blood Negative (Negative) Urine Nitrite Negative (Negative) Ur Leukocyte Esterase Small (1+) H (Negative) Urine RBC 0-2 (0-2) /HPF Urine WBC 0-5 (0-5) /HPF Ur Squamous Epith Cells 3-5 (0-2) /HPF Urine Bacteria None Seen (None Seen) Hyaline Casts 0-2 (0-2) /LPF Influenza Type A (PCR) NEGATIVE (Negative) Influenza Type B (PCR) NEGATIVE (Negative) RSV RNA Qual (PCR) NEGATIVE (Negative) SARS-CoV-2 RNA (RT-PCR) NEGATIVE (Negative) Independent Historian Clinical information obtained from an independent historian. History obtained from or confirmed by: Other (son, daughter) External Record Review External record reviewed: Prior outpatient labs Chronic Conditions Patient?s care impacted by: Other (CHF, GERD, CKD, dementia) Discharge Plan Discharge Clinical Impression: Diverticulitis, Acute abdominal pain Patient Disposition: Home, Self-Care Instructions: Diverticulitis (ED) Prescriptions: New dicyclomine 20 mg tablet 20 mg PO TID Qty: 10 0RF amoxicillin-pot clavulanate 875-125 mg tablet 1 tab PO BID 10 Days Qty: 20 0RF No Action trazodone 50 mg tablet 0.5 tab PO BEDTIME PRN (Reason: Insomnia) donepezil 10 mg tablet 1 tab PO BEDTIME sertraline 100 mg tablet 2 tab PO QAM mirtazapine 45 mg tablet 1 tab PO BEDTIME cholecalciferol (vitamin D3) 50 mcg (2,000 unit) capsule 1 cap PO QAM ondansetron 4 mg tablet,disintegrating 4 mg PO Q8H PRN (Reason: nausea and vomiting) Qty: 20 0RF pantoprazole 40 mg tablet,delayed release (DR/EC) 40 mg PO BID Qty: 60 6RF acetaminophen 500 mg capsule 500 mg PO QID PRN (Reason: pain) Qty: 90 3RF bisacodyl [Dulcolax (bisacodyl)] 5 mg tablet,delayed release (DR/EC) 10 mg PO BEDTIME PRN (Reason: constipation) 30 Days Qty: 60 3RF lidocaine 5 % adhesive patch,medicated 1 patch topical DAILY ibuprofen [Advil Liqui-Gel] 200 mg capsule 200 mg PO Q6H PRN dicyclomine 10 mg capsule 10 mg PO QID Qty: 120 6RF diclofenac sodium 1 % gel 2 g topical QID Qty: 100 0RF Rx Instructions: apply to single elbow, wrist or hand; for hand includes palm/fingers/back of hand. Do not take Ibuprofen/Motrin or other NSAIDs while using this medication Print Language: Arabic
[2025-03-23 18:21] LABS: MANUAL DIFF FLAG NO
[2025-03-23 18:22] LABS: Hematocrit 35.9 % (37.0-47.0); Hemoglobin 11.8 g/dl (12.0-16.0); Imm Gran Abs Auto 0.01 X10*3/uL (0.00-0.03); Imm Gran Pct Auto 0.1 % (0.0-0.4); Lymphocytes Absolute Auto 2.4 X10*3/uL (1.2-4.9); Mean Corpuscular HGB Conc 32.9 g/dl (31.0-35.0); Mean Corpuscular Hemoglobin 31.2 pg (27.0-33.0); Mean Corpuscular Volume 95.0 fL (80.0-98.0); NRBC Abs Auto 0.000 X10*3/uL (0.0-0.012); NRBC Pct Auto 0.0 /100WBC (0.0-0.2); Platelet Count 167 X10*3/uL (160-400); Red Blood Count 3.78 X10*6/uL (4.20-5.50); White Blood Count 7.2 X10*3/uL (4.8-10.8)
[2025-03-23 18:25] LABS: Appearance Urine Clear; Glucose Urine UA Negative (Negative); PH 5.5 (5.0-9.0); Specific Gravity - Urine 1.025 (1.005-1.025); UMIC TRIGGER UACC YES
[2025-03-23 18:37] LABS: Alanine Aminotransferase 19 U/L (0-31); Albumin Level 4.1 g/dL (3.5-5.0); Alkaline Phosphatase 60 U/L (39-117); Anion Gap 10 (12-20); Aspartate Amino Transferase 31 U/L (5-31); Blood Urea Nitrogen 23 mg/dL (9-16); Calcium 9.2 mg/dL (8.4-10.2); Carbon Dioxide 31 mmol/L (22-29); Chloride 106 mmol/L (96-108); Creatinine Clr Calc Pharmacy 34.3; Estimated Glomerular Filt Rate 58; Magnesium 2.1 mg/dL (1.6-2.6); Potassium 4.3 mmol/L (3.3-5.1); Sodium 143 mmol/L (135-145); Total Protein 7.4 g/dL (6.5-8.0)
[2025-03-23 18:43] LABS: UACC Culture Trigger YES
[2025-03-23 18:58] LABS: Resp Syncy Virus RNA Qual PCR NEGATIVE (Negative); SARS COV2 PCR INHOUSE NEGATIVE (Negative)
--- OUTSIDE RECORDS SUMMARY | 2025-03-23 22:08 | XMS_ITS | Patient Health Record ---
Author Organization [facility] Address [address] [place] [address] Care Team Providers Care Nurse Transitional Name Role Phone Marisabel Delaney M.D. Primary Care Provider UnaFahad Juares Unavailable [phone] Reason For Referral No Information Plan Of Treatment No Information Insurance Providers Payer Name Payer Address Payer Phone Subscriber Number Group Number Insured Name Patient Relationship to Insured Coverage Start Date Coverage End Date [facility] [address] [place] [address] [id number] JEFFERY LOREDO Self - patient is the insured
--- OUTSIDE RECORDS SUMMARY | 2025-03-23 22:08 | XMS_ITS | Encounter Summary ---
Author Organization [employer] Address [address] 7[address] [place] [address] Care Team Providers Care Health And Wellness Manager Name Role Phone Marisabel Delaney MD Primary Care Provider [phone] Reason for Visit * Reason Onset Date Comments Chart Prep 03/20/2025 Encounter Details Date Type Department Care Team (Late st Contact Info) Description 03/20/2025 Telephone [facility] MEDICINE [address] [place], [place] [phone] Marisabel Delaney MD [address] [place], [place] [phone] Chart Prep Social History Tobacco Use Types Packs/Day Years [...] encounter Miscellaneous Notes * Telephone Encounter - Maribel Crenshaw [place] - 03/20/2025 11:11 AM EDT Chart Prep Labs: not done Images: done Referrals: appointment pending [facility] Pain Management Vaccines due: RSV and Zoster Screenings: not applicable Overdue care gaps: A1c, Glucose, SDOH, and WILLIE-7 documented in this encounter Plan of Treatment Upcoming Encounters Date Type Department Care Team (Late st Contact Info) Description 04/09/2025 1:30 PM EDT Office Visit [facility] ADULT DENTAL [address] [place] [address] Asad Duffy, ALYSON [address] [place] [address] documented as of this encounter Visit Diagnoses Not on filedocumented in this encounter Additional Health Concerns Assessment Noted Time PHQ-9 Depression Total Score: 0 08/15/20 24 3:52 PM EST documented as of this encounter Care Teams Health And Wellness Manager Relationship Specialty Start Date End Date Marisabel Delaney MD [address] [place] [address] PCP - General Family Medicine 04/14/22 documented as of this encounter
--- OUTSIDE RECORDS SUMMARY | 2025-03-23 22:08 | XMS_ITS | Clinical Summary ---
Author Organization [facility] Address [address] [place] [address] Phone Care Team Providers Care Poultry Offal Worker Name Role Phone Inés Frances Primary Care [...] patient's age to complete this topic Insurance [facility] ([id number]) [facility] ([id number]) Care Teams Poultry Offal Worker Relationship Specialty Start Date End Date Frances Conte PCP - General Family Medicine 07/11/21
--- NOTE | 2025-03-23 22:09 | PC.NURSE ---
pt accompanied by her son states she has abdominal pain, increased with urine output, has had frequent urine output last few days. Abdominal pain has been long sanding for at least a month per son. Pt lives alone but son stays with he sometimes to help. pain 10/10 per pt. Respirations even and unlabored.
[2025-03-24 00:26] VITALS: BP 114/73; PULSE 57; RESP 16; TEMP 36.8; O2SAT 95
[2025-03-24] MEDS: Lactated Ringers 500 ML 999 ML IV (00:27)
--- NOTE | 2025-03-24 00:32 | PC.NURSE ---
pt medicated per OCT. IV line started in R AC, pt tolerated well. Pt will b taken for scan of abdomen. Pt aware.
[2025-03-24] MEDS: iohexoL 350 MG/ML 100 ML INFUS..BTL 85 ML IV (01:03)
--- NOTE | 2025-03-24 03:33 | PC.NURSE ---
pt medicated per OCT. Pt briana Hernandez was called as pt is ready to be d/c, he is outside and will come in to get her.
[2025-03-24 03:36] VITALS: BP 137/58; PULSE 66; RESP 16; TEMP 37; O2SAT 94
== END 2025-03-24 03:44 | disposition home or self-care (01) ==
PROVIDERS: Physician Assistant Medical; Emergency Provider Emergency Medicine
DX: K57.92 Diverticulitis of intestine, part unspecified, without perforation or abscess without bleeding (principal); R10.31 Right lower quadrant pain; N18.9 Chronic kidney disease, unspecified; K21.9 Gastro-esophageal reflux disease without esophagitis; M54.12 Radiculopathy, cervical region; M54.2 Cervicalgia
CPT/HCPCS: 36415; 74177; 80053; 81001; 83735; 85025; 87086; 87637; 96361; 96374; 96375; 99284; J2270; J2405; J7120; Q9967

== ENCOUNTER → 2025-03-24 00:11 | Outpatient (BNV) | payer OTHER, SELFPAY | PROVIDERS: Emergency Provider Emergency Medicine; Visit Provider Radiology Neuroradiology | DX: K63.89 Other specified diseases of intestine (principal) | CPT/HCPCS: 74177 ==

== ENCOUNTER 2025-04-03 13:12 | Outpatient (AMB) | payer OTHER, SELFPAY ==
--- OUTSIDE RECORDS SUMMARY | 2025-04-03 13:15 | XMS_ITS | Encounter Summary ---
Author Organization [facility] Address [address] [facility] [address] [place] [address] Care Team Providers Care Detective Private Eye Name Role Phone Marisabel Dealney MD Primary Care Provider [phone] Reason for Referral * Consultation (Routine) - Authorized Specialty Diagnoses / Procedures Referred By Contac t Referred To Contact Orthopaedic Surgery Diagnoses Tendinopathy of right rotator cuff Marisabel Delaney MD [address] [place] [address] Phone: tel: fax: [facility] [address] [place] [address] Drive [address] [place], [place] Phone: tel: fax: Referral ID Status Reason Start Date Expiration Date Visits Requested Visits Authorized [id number] Authorized Specialty Services Required 09/04/2024 09/04/2025 1 1 Encounter Details Date Type Department Care Team (Late st Contact Info) Description 09/04/2024 Orders Only [facility] MEDICINE [address] [place] [address] Marisabel Delaney MD [address] [place] [address] Tendinopathy of right rotator cuff (Primary Dx) [...] Description 04/09/2025 1:30 PM EDT Office Visit [facility] ADULT DENTAL [address] [place] [address] Asad Duffy, ALYSON [address] [place] [address] Scheduled Referrals Name Type Priority Associated Diagnoses [...] documented as of this encounter Care Teams Detective Private Eye Relationship Specialty Start Date End Date Marisabel Delaney MD [address] [place] [address] PCP - General Family Medicine 04/14/22 documented as of this encounter
--- OUTSIDE RECORDS SUMMARY | 2025-04-03 13:15 | XMS_ITS | Patient Health Record ---
Author Organization [facility] Address [address] [place] [address] Care Team Providers Care Composite Engineer Name Role Phone Marisabel Delaney M.D. Primary Care Provider UnaFahad Juares Unavailable [phone] Reason For Referral No Information Plan Of Treatment No Information Insurance Providers Payer Name Payer Address Payer Phone Subscriber Number Group Number Insured Name Patient Relationship to Insured Coverage Start Date Coverage End Date [facility] [address] [place] [address] [id number] JEFFERY LOREDO Self - patient is the insured
--- OUTSIDE RECORDS SUMMARY | 2025-04-03 13:15 | XMS_ITS | Clinical Summary ---
Author Organization [facility] Address [address] [place] [address] Phone Care Team Providers Care Paper Cone Maker Name Role Phone Inés Frances Primary Care [...] [facility] ([id number]) Care Teams Paper Cone Maker Relationship Specialty Start Date End Date Frances Conte PCP - General Family Medicine 07/11/21
[2025-04-03 13:23] VITALS: BP 112/58; PULSE 86; RESP 16; O2SAT 95; BMI 25.2
--- NOTE | 2025-04-03 13:23 | MHC.OFFVIS ---
Vital Signs 04/03/25 13:23 Height 4 ft 11 in Weight 125 lb BMI 25.2 BP 112/58 L Blood Pressure Location Lt brachial Position Sitting Respiration 16 Pulse 86 Pulse Source Pulse Oximeter Pulse Oximetry (%) 95 Oxygen Delivery Method Room Air Intake Visit Reasons: Follow Up Spinning Supervisor Required: No Spinning Supervisor Services: Spinning Supervisor Offered & Declined Accompanied by: Son Allergies oxycodone (Percocet) Allergy (Mild, Verified 04/03/25 13:36) denies HPI Comments Details: The patient is an 84-year-old female presenting with chronic pain management concerns. She has a history of arthritis, bone spurs, and degenerative disc disease, which have been contributing to her persistent right-sided neck pain. She presents the office with her son who assisted with Thai translation per their request. Recent MRI reviewed, results as per below. The pain is primarily located on the right side, extending from her neck down her arm, and is exacerbated by movement, particularly lifting her arm. Previous interventions included injections aimed at alleviating arthritis-related pain, but these have not provided lasting relief. The patient has been using likq-hed-uavkwtw pain relief measures such as Tylenol, ice, heat, and topical patches, but these have not significantly improved her symptoms. She also reports increased thirst, which has not been addressed by her primary care physician. - Onset and Timing: Chronic pain, persistent over time - Quality and Character: Persistent, exacerbated by movement - Primary Location: Right side, from neck down the arm - Exacerbating Factors: Movement, particularly lifting the arm - Relieving Factors: Bgvt-bwt-fehrazw measures such as Tylenol, ice, heat, and patches, though with limited effect - Affect: No specific impact on mood or psychological wellbeing discussed - Analgesia: Current use of Tylenol, ice, heat, and patches; pain persists - Adverse Effects: Increased thirst, possibly related to medication, not yet addressed - Activities of Daily Living: Pain interferes with arm movement - Aberrant Drug Related Behaviors: None reported [facility] Medical History Malnourished Right sided abdominal pain Odynophagia Alzheimer disease Thoracic compression fracture Pubic bone fracture Closed fracture of iliac wing Closed rib fracture GERD (gastroesophageal reflux disease) HTN (hypertension) Dementia Diabetes Surgical History H/O colonoscopy History of varicose vein ligation and stripping History of hysterectomy History of cholecystectomy Family History Sister Epilepsy Social History Household Members: None Housing: Apartment Do you presently have visiting nurse or other home services: No Patient Tobacco Use Status: Never used Tobacco Advance Directives Date on File: 02/06/22 service: No Current occupational status: disabled Review of Systems Const Details: - Musculoskeletal: Reports chronic pain on the right side, exacerbated by movement - Neurological: Denies any changes in sensation or strength - General: Reports increased thirst Physical Exam Exam Exam: General: awake, alert. Answers questions appropriately. Frail, elderly. Appears stated age. Skin: warm, dry, intact HEENT: Normocephalic. Hearing intact. Cardiac: External chest normal in appearance. Respiratory: No cough, audible wheezing or stridor. Abdomen: without gross distension. MS: No obvious swelling or deformities. Cervical Spine: Visible inspection without gross abnormality Tender to palpation midline cervical vertebrae and cervical paraspinal muscles; right greater than left Spurling compression test positive Neurological: Oriented to person, place, time and situation. Thought process intact. Psychiatric: Appropriate mood and affect. Good judgment and insight. Vital Signs: Last Vital Signs Pulse 86 04/03/25 13:23 Resp 16 04/03/25 13:23 BP 112/58 L 04/03/25 13:23 Pulse Ox 95 04/03/25 13:23 Oxygen Delivery Method Room Air 04/03/25 13:23 BMI result Body Mass Index 25.2 Results Reviewed Results Reviewed: 03/04/25 MRI cervical spine FINDINGS: Craniocervical junction is intact. Normal position of the cerebellar tonsils. No bone marrow STIR signal abnormality. Focal hyperintense T2 signal in the non free margin preepiglottic region. Marginal osteophyte formation and disc desiccation decreased intervertebral disc height at C5-6 and C6-7 level. Grade 1 retrolisthesis C5-6 and C6-7. Grade 1 anterolisthesis C4-5 and C7-T1. Modic type II endplate changes at C5-6 and C6-7 levels. Buckling deformity of the dorsal aspect of the thecal sac secondary to ligamentum flavum hypertrophy at C5-6 and C6-7 levels. Cervical spinal cord signal is normal. C2-3: No disc herniation. No neuroforamina stenosis. C3-4: No disc herniation. No neuroforamina stenosis. C4-5: Grade 1 anterolisthesis. Broad-based disc osteophyte compresses formation. No cord compression. No neuroforamina stenosis. C5-6: Grade 1 retrolisthesis abutting the spinal cord. No cord compression. Right neuroforamina and stenosis on a degenerative basis. C6-7: Grade 1 retrolisthesis abutting the cord and left neuroforamina and stenosis on a degenerative basis. C7-T1: Grade 1 anterolisthesis. No cord compression. No neuroforamina stenosis. No prevertebral compartment hematoma, mass or fluid collection. Flow-void signal within the main vessels is normal. Left vertebral artery is dominant. MR/MR cervical spine wo con IMPRESSION: Multilevel cervical spondylosis C4 C7 pronounced at C5-6 and C6-7 abutting the cord without cord edema and or myelopathy. Cystic lesion in the preepiglottic nonfree margin. 08/31/24 XR CS Findings: Mild multilevel anterolisthesis and retrolisthesis, degenerative. No fracture. The vertebral body heights are preserved. There is severe intervertebral disc space narrowing C5/C6 and C6/C7. Otherwise mild intervertebral disc space narrowing. Kbqs-qz-scqrfadw multilevel endplate osteophytosis and uncovertebral joint and facet hypertrophy. No prevertebral soft tissue swelling. Impression: No acute findings. Severe lower cervical degenerative change. Assessment & Plan Assessment & Plan (1) Cervical spondylosis: Code(s): M47.812 - Spondylosis without myelopathy or radiculopathy, cervical region Category: Medical (2) Chronic neck pain: Code(s): M54.2 - Cervicalgia; G89.29 - Other chronic pain Category: Medical (3) Right shoulder pain: Code(s): M25.511 - Pain in right shoulder Category: Medical (4) Cervical radiculopathy: Code(s): M54.12 - Radiculopathy, cervical region Category: Medical Plan The plan involves submitting a request to the insurance for approval of a steroid injection in the neck to alleviate pain associated with degenerative disc disease. This injection aims to reduce pain radiating down the arm and improve the patient's quality of life. In the interim, the patient is advised to continue using quri-kie-kyhdvia pain relief measures such as Tylenol, ice, heat, and patches. Additionally, it is recommended to consult with a pharmacist regarding the increased thirst to determine if it is a side effect of current medications. Will schedule for fluoroscopy guided C6-7 epidural steroid injection with local anesthetic Patient was informed and verbally consented to the use of an ambient scribe for clinic note documentation during this visit. Patient Instructions: - Continue using Tylenol, ice, heat, and patches for pain relief. - Consult with a pharmacist about increased thirst to check if it is a side effect of medications. - Await contact for scheduling the steroid injection once insurance approval is obtained. Coding Level of Care Code Est Pt Level 3 (70809) Complex EM visit Add On G2211 Diagnoses Cervical spondylosis M47.812 Chronic neck pain M54.2; G89.29 Right shoulder pain M25.511 Cervical radiculopathy M54.12
== END 2025-04-03 14:31 | disposition home or self-care (01) ==
LOC: HO.PMC 13:13
PROVIDERS: Visit Provider Registered Nurse Emergency
DX: M47.812 Spondylosis without myelopathy or radiculopathy, cervical region (principal); M54.2 Cervicalgia; G89.29 Other chronic pain; M25.511 Pain in right shoulder; M54.12 Radiculopathy, cervical region
CPT/HCPCS: 99213; G2211

== ENCOUNTER → 2025-04-03 13:12 | Outpatient (BNVA) | payer OTHER, SELFPAY | PROVIDERS: Visit Provider Registered Nurse Emergency | DX: M47.812 Spondylosis without myelopathy or radiculopathy, cervical region (principal); M54.2 Cervicalgia; M25.511 Pain in right shoulder; M54.12 Radiculopathy, cervical region | CPT/HCPCS: 99212 ==

== ENCOUNTER 2025-05-03 11:42 | Inpatient (IN) | payer OTHER, SELFPAY ==
--- NOTE | ~2025-05-03 | XR_ITS ---
CLINICAL HISTORY: chest pain --- Additional Notes or Special Instructions: [id number] 1 view chest x-ray Comparison: CR/SR - XR CHEST 1 VIEW - 06/13/24 22:43 EDT CR/SR - XR CHEST 2 VIEWS - 10/12/23 17:30 EST Findings: Prominence of the pulmonary vasculature. Right upper lobe ground-glass opacity superimposed with the right cardiac border. Cardiomegaly. Mild osteopenia. IMPRESSION: 1. CHF. 2. Right upper lobe ground-glass opacity, possibly representing pneumonia. Short-term follow-up is suggested. 3. Mild osteopenia. This document has been electronically signed by: Artie Shielsd MD on 05/03/2025 15:07:57
--- NOTE | ~2025-05-03 | XR_ITS ---
EXAMINATION: XR ABDOMEN 1 VIEW (KUB) HISTORY: abd distention COMPARISON: Comparison is made with the prior examination dated 09/08/2016. FINDINGS: A single supine view of the abdomen is submitted. The bowel gas pattern is unremarkable, without evidence of mechanical obstruction. There are surgical clips in the right upper quadrant. No abnormal calcifications are identified. There are no abnormal soft tissue masses. There are old fractures of the right superior and inferior pubic rami. There is degenerative disc disease and levoscoliosis of the spine. XR/XR KUB IMPRESSION: Unremarkable bowel gas pattern. Electronically signed by: Fahad Murguia MD 05/08/2025 09:31 AM EDT
--- NOTE | ~2025-05-03 | CT_ITS ---
CLINICAL HISTORY: diffuse abd pain, significant RLQ pain CT abdomen and pelvis with contrast Comparison: None provided Findings: The lung bases are clear. Cardiomegaly. Prior cholecystectomy. Hepatic steatosis. Mid to distal sigmoid colon pericolonic inflammatory changes with adjacent pneumoperitoneum, axial image number [id number] of [id number]. [id number] calcified atherosclerotic disease of the abdominal aorta. Diverticulosis. The appendix within normal limits. Diverticulosis. No acute fracture. Lumbar levoscoliosis. IMPRESSION: 1. Sigmoid colon pericolonic inflammation with adjacent pneumoperitoneum; sigmoid diverticulitis with micro perforation. Clinical correlation suggested. 2. Hepatic steatosis. 3. Cardiomegaly. 4. [id number] calcified atherosclerotic disease of the abdominal aorta. 5. Prior cholecystectomy. This document has been electronically signed by: Artie Shields MD on 05/03/2025 17:07:19
[2025-05-03 11:49] VITALS: BP 118/69; PULSE 93; RESP 16; TEMP 36.2; O2SAT 96; BMI 24.4
--- NOTE | 2025-05-03 11:53 | ED.GENADULT ---
HPI - General Adult General Chief complaint: Abdominal Pain Stated complaint: sore throat abd pain Time Seen by Provider: 05/03/25 12:50 Source: patient, family (Son at bedside corroborating history) and RN notes reviewed Mode of arrival: ambulatory Limitations: language barrier (Montenegrin-speaking) History of Present Illness ED Provider: JENNIFER Anderson HPI narrative: 84-year-old Montenegrin-speaking female who is accompanied by her son, with medical history of dementia, CKD, CHF, GERD, cervical spondylosis with radiculopathy, scoliosis, presents to the ED due to acute on chronic abdominal and cervical neck pain and concerns for UTI. Patient is somewhat of a poor historian due to history of dementia, her son is somewhat of a poor historian as he is not the one who keeps track of her medical history. Her son states the patient has had a decreased appetite over the last 2 or 3 days, with abdominal pain preventing her from sleeping last night and is concerned she may have a UTI. Reports she moved her bowels this morning without diarrhea or black/tarry stool. Patient reports right sided chest pain that has persisted for about 1 week but is unable to describe the chest pain and instead is perseverating on the neck and R arm pain, grouping the chest pain into the arm pain. Additionally, patient states she has a sore throat but patient or her son are unable to tell me when the sore throat began. Patient denies sick contacts, nausea, vomiting, diarrhea, fevers MD complaint: abd pain, cervical neck pain Related Data Home Medications ?Medication ?Instructions ?Recorded ?Confirmed donepezil 10 mg tablet 1 tab PO BEDTIME 01/13/22 12/05/24 mirtazapine 45 mg tablet 1 tab PO BEDTIME 01/13/22 12/05/24 sertraline 50 mg tablet 50 mg PO QAM 05/03/25 cholecalciferol (vitamin D3) 50 50 mcg PO DAILY 05/04/25 mcg (2,000 unit) capsule (Vitamin D3) multivitamin 1 tab PO QAM 05/04/25 Previous Rx's ?Medication ?Instructions ?Recorded pantoprazole 40 mg tablet,delayed 40 mg PO BID #60 tabs 01/21/25 release Allergies Allergy/AdvReac Type Severity Reaction Status Date / Time oxycodone (Percocet) Allergy Mild denies Verified 05/03/25 11:50 Review of Systems Review of Systems: CONST: Negative for fever, body aches and chills. HENT: Negative for neck pain/stiffness, headache, congestion, swelling. POS sore throat EYES: Negative for discharge/pain or vision changes. RESP: Negative for cough/hemoptysis and shortness of breath. CV: Negative chest pain, difficulty breathing, palpitations. ABD: Negative nausea, vomiting. POS abd pain : Negative increase frequency, dysuria, blood in urine or stool. MUSC: Negative for muscle aches, edema. POS cervical neck pain radiating down R arm. SKIN: Negative rash, lesions/sores. NEURO: Negative headache, dizziness, weakness. Yes all other systems are reviewed and are negative PMFSH Past Medical History Attestation statement: The following information was validated with the patient. Source: old records reviewed, obtained from family (Son at bedside) and nursing notes reviewed Medical History Diverticulitis of colon with perforation Malnourished Right sided abdominal pain Odynophagia Alzheimer disease Thoracic compression fracture Pubic bone fracture Closed fracture of iliac wing Closed rib fracture GERD (gastroesophageal reflux disease) HTN (hypertension) Dementia Diabetes Surgical History H/O colonoscopy History of varicose vein ligation and stripping History of hysterectomy History of cholecystectomy Family History Family History Sister Epilepsy Social History Social History Household Members: None Housing: Apartment Do you presently have visiting nurse or other home services: No Patient Tobacco Use Status: Never used Tobacco Advance Directives Date on File: 02/06/22 service: No Current occupational status: disabled Physical Exam ED Vital Signs: Vital Signs - 24 hr 05/03/25 11:49 05/03/25 13:43 05/03/25 17:20 Temperature 97.2 F 101.6 F H Pulse Rate 93 81 83 Respiratory Rate 16 22 H 19 Blood Pressure 118/69 135/63 Pulse Oximetry 96 96 99 Oxygen Delivery Method Room Air Room Air Room Air 05/03/25 17:53 05/03/25 18:08 Temperature 99.2 F 100.7 F H Pulse Rate 82 Respiratory Rate 16 Blood Pressure 114/54 L Pulse Oximetry 94 Oxygen Delivery Method Room Air BMI result Body Mass Index 24.4 GENERAL APPEARANCE: ?AxOx2 to place and self only, no acute distress. HEENT: ?NC, AT. MMM. EOMI, clear conjunctiva, oropharynx clear, no erythema or edema of posterior oropharynx or tonsils, no tonsilar exudates, uvula midline, no submental or sublingual swelling. NECK: ?Supple without lymphadenopathy.? No stiffness or restricted ROM. TTP of cervical paraspinal muscles, without midline spinal tenderness, no bony step-offs palpated, no overlying skin changes, rashes or ecchymosis noted HEART:? Normal rate and regular rhythm, normal S1/S2, no m/r/g LUNGS:? CTAB, moving air well. No crackles or wheezes are heard. ABDOMEN: ?Soft, nondistended, no guarding, diffuse abdominal pain on palpation, with most significant pain of the RLQ, no overlying skin changes, no rashes noted BACK: No CVAT, no obvious deformity. EXTREMITIES: ?Without cyanosis, clubbing or edema. NEUROLOGICAL: ?Grossly nonfocal. Alert and oriented, moving all 4 extremities. Skin: ?Warm and dry without any rash. Course Course Course Narrative: Rapid medical examination performed in triage by Cristina Lucas PA-C. Patient is an 84 year old assigned female at presenting to the emergency department with a sore throat and abdominal pain. Detailed physical exam and review of systems are deferred to the leisure studies professor. Labs and swabs ordered. Patient placed back in the waiting room pending room availability and results. Medications Administered Generic Name Dose Route Start Last Admin Trade Name Freq PRN Reason Stop Dose Admin Acetaminophen 650 mg 05/04/25 03:42 05/04/25 04:39 Acetaminophen Supp 650 Mg Supp.Rect OK 650 mg Q6H PRN Administration Fever >100.4 Heparin Sodium (Porcine) 5,000 unit 05/03/25 20:45 05/03/25 21:58 Heparin Sodium,Porcine 5,000 Unit/Ml Vial SUBCUT 5,000 unit Q12H JOSE FRANCISCO Administration Lactated Ringer's 1,000 mls @ 100 mls/hr 05/03/25 20:45 05/04/25 06:20 Lr IVCONT Not Given .Q10H JOSE FRANCISCO Piperacillin Sod/Tazobactam 50 mls @ 100 mls/hr 05/03/25 21:00 05/04/25 04:05 Sod 3.375 gm/ Sodium Chloride IV Infused Q6H JOSE FRANCISCO Infusion Sodium Chloride 3 ml 05/04/25 00:00 05/04/25 00:56 0.9 % Sodium Chloride Flush 3 Ml Syringe IVFLUSH Not Given QSHIFT JOSE FRANCISCO Discontinued Medications Generic Name Dose Route Start Last Admin Trade Name Fredavid PRN Reason Stop Dose Admin Ceftriaxone Sodium 1 gm 05/03/25 17:23 05/03/25 17:51 Ceftriaxone Sodium 1 Gm Vial IVPUSH 05/03/25 17:24 1 gm ONCE ONE Administration Acetaminophen 1,000 mg in 100 mls @ 400 mls/hr 05/03/25 16:48 05/03/25 17:52 Ofirmev IV 05/03/25 17:02 Infused ONCE ONE Infusion Iohexol 100 ml 05/03/25 15:16 05/03/25 15:16 Iohexol 350 Mg/Ml 100 Ml Infus..Btl IV 05/03/25 15:17 85 ml ONCE ONE Administration Medical Decision Making Medical Decision Making MDM Narrative: 84-year-old Montenegrin-speaking female who is accompanied by her son, with medical history of dementia, CKD, CHF, GERD, cervical spondylosis with radiculopathy, scoliosis, presents to the ED due to acute on chronic abdominal and cervical neck pain and concerns for UTI. Additionally, patient states she has a sore throat, and chest pain but is unable to discern when the sore throat started. Patient is unable to describe the chest pain but tells me it has been persistent for approximately 1 week, she is grouping the chest pain into her arm pain and begins to talk about the arm pain when I ask clarifying questions about her chest pain. Patient was seen in the department on 03/23/25 for concerns of abdominal pain. CT abdomen and pelvis revealed diverticulitis. Patient was started on antibiotics with referral to GI for follow up. Patient unable to tell me if she has had follow up, son does not know if she saw the GI doctors since discharge. Patient with chronic cervical spondylosis, recently had cervical spine MRI on 03/04/2025 which revealed multilevel cervical spondylosis of C4, C7, pronounced at C5-6, and C6-7 abutting the cord without cord edema and/or myelopathy. Patient states her abdominal pain or cervical neck pain has not changed in quality or intensity. But patient is poor historian. I plan on obtaining a CT abdomen and pelvis today for further evaluation of possible diverticulitis, or acute abdomen as patient is poor historian and I am not getting a clear picture if the abdominal pain has changed in quality or intensity since her previous scan. I do not believe that advanced imaging needs to be done of the cervical spine at this time since she does have a recent MRI done approximately 2 months ago. ROM of cervical spine is intact, SILT, strength is 4/5 of upper extremities bilaterally. Plan: Labs, viral serology, rapid strep, UA, EKG, CXR, CT abdomen pelvis Course EKG reveals normal sinus rhythm, left axis deviation, with a nonspecific ST and T-wave abnormality, initial troponin was elevated at 19.2, 2nd troponin with a positive delta and elevated at 25.6. Second EKG reveals normal sinus rhythm with sinus arrhythmia, left axis deviation, no significant ST-elevation/depression, no concurrent chest pain at this time. Labs reveal a leukocytosis of 13.2 with a left shift of 86.5, no bandemia, H and H stable however there has been a mild decrease in hemoglobin on chart review hemoglobin is 11.5, hematocrit is 33.9. No electrolyte abnormality. UA negative for blood or infection. Viral serology negative. Rapid strep negative. CXR reveals cardiomegaly, prominence of pulmonary vasculature, and a possible right upper lobe ground-glass opacity consistent with possible pneumonia. CT abdomen reveals inflammation of the sigmoid colon with adjacent pneumoperitoneum, sigmoid diverticulitis with microperforation, hepatic steatosis. Due to these findings at 17:45 I suspected infection and medicated patient with 1g IV ceftriaxone for coverage of pulmonary and abdominal pathology. Does not meet sepsis criteria at this time. I reached out to Hospitalist Dr. Vazquez who is admitting patient to medicine for further evaluation and management of diverticulitis with microperforations. Differential Diagnosis Differential Diagnoses: The differential diagnosis associated with the presentation includes ACS Cervical spondylosis Cervical strain Electrolyte abnormality Acute abdomen Diverticulitis Admission/Observation Consideration of admission/observation: Escalation of care including admission/observation considered Consult Healthcare Provider Management of the patient was discussed with: Hospitalist (Dr. Vazquez) Lab Data MDM Lab Attestation statement: I reviewed the patient's lab results. 05/04/25 05:02 05/04/25 05:02 Labs: Lab Results 05/03/25 05/03/25 05/03/25 Range/Units 12:23 13:39 15:37 WBC 13.2 H (4.8-10.8) X10*3/uL RBC 3.62 L (4.20-5.50) X10*6/uL Hgb 11.5 L (12.0-16.0) g/dl Hct 33.9 L (37.0-47.0) % MCV 93.6 (80.0-98.0) fL MCH 31.8 (27.0-33.0) pg MCHC 33.9 (31.0-35.0) g/dl RDW 12.8 (11.0-16.0) % Plt Count 162 (160-400) X10*3/uL MPV 9.9 (9.4-12.3) fL Immature Gran % (Auto) 0.3 (0.0-0.4) % Neut % (Auto) 86.5 H (45-73) % Lymph % (Auto) 9.1 L (20-40) % Sully % (Auto) 4.0 (2-11) % Eos % (Auto) 0.0 (0-4) % Baso % (Auto) 0.1 (0-2) % Lymph # (Auto) 1.2 (1.2-4.9) X10*3/uL Sully # (Auto) 0.5 (0.1-1.2) X10*3/uL Eos # (Auto) 0.0 (0.0-0.4) X10*3/uL Baso # (Auto) 0.0 (0.0-0.2) X10*3/uL Abs Immat Gran (auto) 0.04 H (0.00-0.03) X10*3/uL Absolute Neuts (auto) 11.5 H (2.0-8.3) x10*3/uL Absolute Nucleated RBC 0.000 (0.0-0.012) X10*3/uL Nucleated RBC % (auto) 0.0 (0.0-0.2) /100WBC Sodium 137 (135-145) mmol/L Potassium 4.4 (3.3-5.1) mmol/L Chloride 103 (96-108) mmol/L Carbon Dioxide 25 (22-29) mmol/L Anion Gap 13 (12-20) BUN 16 (9-16) mg/dL Creatinine 1.06 (0.5-1.4) mg/dL Estim Creat Clear Calc 30.0 Estimated GFR 49 Random Glucose 126 H (60-115) mg/dL Lactic Acid (0.5-2.0) mmol/L Calcium 8.7 (8.4-10.2) mg/dL Magnesium 2.0 (1.6-2.6) mg/dL Total Bilirubin 1.4 H (0.0-1.0) mg/dL AST 28 (5-31) U/L ALT 14 (0-31) U/L Alkaline Phosphatase 53 (39-117) U/L Troponin I High Sens 19.2 H (<3.5-17.0) ng/L Total Protein 7.2 (6.5-8.0) g/dL Albumin 4.0 (3.5-5.0) g/dL Lipase 11 (8-78) U/L Urine Color Yellow Urine Appearance Clear Urine pH >= 9.0 (5.0-9.0) Ur Specific [place] 1.025 (1.005-1.025) Urine Protein 30 (1+) H (Neg-Trace) mg/dL Urine Glucose (UA) Negative (Negative) mg/dL Urine Ketones Negative (Negative) mg/dL Urine Blood Negative (Negative) Urine Nitrite Negative (Negative) Ur Leukocyte Esterase Trace H (Negative) Urine RBC 0-2 (0-2) /HPF Urine WBC 0-5 (0-5) /HPF Ur Squamous Epith Cells 3-5 (0-2) /HPF Urine Bacteria None Seen (None Seen) Hyaline Casts 0-2 (0-2) /LPF COVID-19 (DEANGELO) Negative (Negative) COVID-19 Clin Com See Note Influenza Type A (JOHN) Negative (Negative) Influenza Type B (JOHN) Negative (Negative) Influenza A & B Note See Note S. pyogenes GrpA JOHN Negative (Negative) 05/03/25 05/03/25 Range/Units 17:16 17:45 WBC (4.8-10.8) X10*3/uL RBC (4.20-5.50) X10*6/uL Hgb (12.0-16.0) g/dl Hct (37.0-47.0) % MCV (80.0-98.0) fL MCH (27.0-33.0) pg MCHC (31.0-35.0) g/dl RDW (11.0-16.0) % Plt Count (160-400) X10*3/uL MPV (9.4-12.3) fL Immature Gran % (Auto) (0.0-0.4) % Neut % (Auto) (45-73) % Lymph % (Auto) (20-40) % Sully % (Auto) (2-11) % Eos % (Auto) (0-4) % Baso % (Auto) (0-2) % Lymph # (Auto) (1.2-4.9) X10*3/uL Sully # (Auto) (0.1-1.2) X10*3/uL Eos # (Auto) (0.0-0.4) X10*3/uL Baso # (Auto) (0.0-0.2) X10*3/uL Abs Immat Gran (auto) (0.00-0.03) X10*3/uL Absolute Neuts (auto) (2.0-8.3) x10*3/uL Absolute Nucleated RBC (0.0-0.012) X10*3/uL Nucleated RBC % (auto) (0.0-0.2) /100WBC Sodium (135-145) mmol/L Potassium (3.3-5.1) mmol/L Chloride (96-108) mmol/L Carbon Dioxide (22-29) mmol/L Anion Gap (12-20) BUN (9-16) mg/dL Creatinine (0.5-1.4) mg/dL Estim Creat Clear Calc Estimated GFR Random Glucose (60-115) mg/dL Lactic Acid 0.9 (0.5-2.0) mmol/L Calcium (8.4-10.2) mg/dL Magnesium (1.6-2.6) mg/dL Total Bilirubin (0.0-1.0) mg/dL AST (5-31) U/L ALT (0-31) U/L Alkaline Phosphatase (39-117) U/L Troponin I High Sens 25.6 H (<3.5-17.0) ng/L Total Protein (6.5-8.0) g/dL Albumin (3.5-5.0) g/dL Lipase (8-78) U/L Urine Color Urine Appearance Urine pH (5.0-9.0) Ur Specific [place] (1.005-1.025) Urine Protein (Neg-Trace) mg/dL Urine Glucose (UA) (Negative) mg/dL Urine Ketones (Negative) mg/dL Urine Blood (Negative) Urine Nitrite (Negative) Ur Leukocyte Esterase (Negative) Urine RBC (0-2) /HPF Urine WBC (0-5) /HPF Ur Squamous Epith Cells (0-2) /HPF Urine Bacteria (None Seen) Hyaline Casts (0-2) /LPF COVID-19 (DEANGELO) (Negative) COVID-19 Clin Com Influenza Type A (JOHN) (Negative) Influenza Type B (JOHN) (Negative) Influenza A & B Note S. pyogenes GrpA JOHN (Negative) Independent Interpretation I performed an independent interpretation of an: EKG, Plain X-Ray and CT Scan Interpretation: I personally interpreted the EKG which reveals normal sinus rhythm with a left axis deviation and nonspecific ST and T-wave abnormalities Vent. Rate : 82 BPM Atrial Rate : 82 BPM P-R Int : 170 ms QRS Dur : 98 ms QT Int : 382 ms P-R-T Axes : 7 -33 138 degrees QTcB Int : 446 ms Normal sinus rhythm Left axis deviation Left ventricular hypertrophy ( R in aVL , [place] product , Romhilt-Niet[place] ) ST & T wave abnormality, consider lateral ischemia Abnormal ECG When compared with ECG of 13-Jun-2024 20:39, No significant change was found I personally interpreted the repeat EKG which revealed normal sinus rhythm with sinus arrhythmia, with left axis deviation Vent. Rate : 83 BPM Atrial Rate : 83 BPM P-R Int : 178 ms QRS Dur : 94 ms QT Int : 398 ms P-R-T Axes : 20 -35 155 degrees QTcB Int : 467 ms Normal sinus rhythm with sinus arrhythmia Left axis deviation Left ventricular hypertrophy with repolarization abnormality ( R in aVL , [place] product , [place] ) Abnormal ECG When compared with ECG of 03-May-2025 13:54, No significant change was found I personally interpreted the CXR which reveals cardiomegaly, prominent pulmonary vasculature, questionable ground-glass opacity of the right upper lobe, I agree with the radiologist's interpretation I personally interpreted the CT abdomen and pelvis which revealed diverticulitis with microperforations, I agree with the radiologist's interpretation Radiology Impression Discussion of test interpretation with radiology: I have reviewed the radiologist's reading. Radiologist Impression: CXR Findings: Prominence of the pulmonary vasculature. Right upper lobe ground-glass opacity superimposed with the right cardiac border. Cardiomegaly. Mild osteopenia. IMPRESSION: 1. CHF. 2. Right upper lobe ground-glass opacity, possibly representing pneumonia. Short-term follow-up is suggested. 3. Mild osteopenia. This document has been electronically signed by: Artie Shields MD on 05/03/2025 15:07:57 Dictated By: Artie Shields MD Signed By: <Electronically signed by Artie Shields MD in [place]> 05/03/[id number] abdomen and pelvis Findings: The lung bases are clear. Cardiomegaly. Prior cholecystectomy. Hepatic steatosis. Mid to distal sigmoid colon pericolonic inflammatory changes with adjacent pneumoperitoneum, axial image number [phone] of [id number]. [id number] calcified atherosclerotic disease of the abdominal aorta. Diverticulosis. The appendix within normal limits. Diverticulosis. No acute fracture. Lumbar levoscoliosis. IMPRESSION: 1. Sigmoid colon pericolonic inflammation with adjacent pneumoperitoneum; sigmoid diverticulitis with micro perforation. Clinical correlation suggested. 2. Hepatic steatosis. 3. Cardiomegaly. 4. [id number] calcified atherosclerotic disease of the abdominal aorta. 5. Prior cholecystectomy. This document has been electronically signed by: Artie Shields MD on 05/03/2025 17:07:19 Dictated By: Artie Shields MD Signed By: <Electronically signed by Artie Shields MD in [place]> 05/03/25 [id number] Independent Historian Clinical information obtained from an independent historian. History obtained from or confirmed by: Other (Son at bedside corroborating history) External Record Review External record reviewed: Inpatient record, Office record and Outpatient record Chronic Conditions Patient?s care impacted by: Diabetes, Hypertension and Other (Dementia, CKD, CHF, GERD, cervical spondylosis with radiculopathy, scoliosis) Discharge Plan Discharge Clinical Impression: Diverticulitis Patient Disposition: Admitted As Inpatient Interventions: Admission Worksheet (ED) Last Done: 05/04/25 05:11 Discharge Date/Time: 05/04/25 06:04
[2025-05-03 12:28] LABS: MANUAL DIFF FLAG NO
[2025-05-03 12:29] LABS: Hematocrit 33.9 % (37.0-47.0); Hemoglobin 11.5 g/dl (12.0-16.0); Imm Gran Abs Auto 0.04 X10*3/uL (0.00-0.03); Imm Gran Pct Auto 0.3 % (0.0-0.4); Lymphocytes Absolute Auto 1.2 X10*3/uL (1.2-4.9); Mean Corpuscular HGB Conc 33.9 g/dl (31.0-35.0); Mean Corpuscular Hemoglobin 31.8 pg (27.0-33.0); Mean Corpuscular Volume 93.6 fL (80.0-98.0); NRBC Abs Auto 0.000 X10*3/uL (0.0-0.012); NRBC Pct Auto 0.0 /100WBC (0.0-0.2); Platelet Count 162 X10*3/uL (160-400); Red Blood Count 3.62 X10*6/uL (4.20-5.50); White Blood Count 13.2 X10*3/uL (4.8-10.8)
[2025-05-03 12:41] LABS: Alanine Aminotransferase 14 U/L (0-31); Albumin Level 4.0 g/dL (3.5-5.0); Alkaline Phosphatase 53 U/L (39-117); Anion Gap 13 (12-20); Aspartate Amino Transferase 28 U/L (5-31); Blood Urea Nitrogen 16 mg/dL (9-16); Calcium 8.7 mg/dL (8.4-10.2); Carbon Dioxide 25 mmol/L (22-29); Chloride 103 mmol/L (96-108); Creatinine Clr Calc Pharmacy 30.0; Estimated Glomerular Filt Rate 49; Magnesium 2.0 mg/dL (1.6-2.6); Potassium 4.4 mmol/L (3.3-5.1); Sodium 137 mmol/L (135-145); Total Protein 7.2 g/dL (6.5-8.0)
[2025-05-03 12:49] LABS: COVID-19 Test Negative (Negative); IDNOW Serial# 152EDE1D; IDNOW Serial# 16C4AD1C; Influenza B2 Negative (Negative)
--- NOTE | 2025-05-03 13:00 | ED.GENADULT ---
HPI - General Adult General Chief complaint: Abdominal Pain Stated complaint: sore throat abd pain Time Seen by Provider: 05/03/25 12:50 Related Data Home Medications ?Medication ?Instructions ?Recorded ?Confirmed cholecalciferol (vitamin D3) 50 1 cap PO QAM 01/13/22 12/05/24 mcg (2,000 unit) capsule donepezil 10 mg tablet 1 tab PO BEDTIME 01/13/22 12/05/24 mirtazapine 45 mg tablet 1 tab PO BEDTIME 01/13/22 12/05/24 sertraline 100 mg tablet 2 tab PO QAM 01/13/22 12/05/24 trazodone 50 mg tablet 0.5 tab PO BEDTIME PRN Insomnia 01/13/22 12/05/24 ibuprofen 200 mg capsule (Advil 200 mg PO Q6H PRN 06/25/24 12/05/24 Liqui-Gel) lidocaine 5 % topical patch 1 patch topical DAILY 06/25/24 12/05/24 Previous Rx's ?Medication ?Instructions ?Recorded ondansetron 4 mg disintegrating 4 mg PO Q8H PRN nausea and 07/07/23 tablet vomiting #20 tabs diclofenac sodium 1 % topical gel 2 g topical QID #100 grams 12/05/24 dicyclomine 10 mg capsule 10 mg PO QID #120 caps 12/31/24 acetaminophen 500 mg capsule 500 mg PO QID PRN pain #90 caps 01/21/25 bisacodyl 5 mg tablet,delayed 10 mg (2 x 5 mg) PO BEDTIME PRN 01/21/25 release (Dulcolax (bisacodyl)) constipation 30 days #60 tabs pantoprazole 40 mg tablet,delayed 40 mg PO BID #60 tabs 01/21/25 release amoxicillin 875 mg-potassium 1 tab PO BID 10 days #20 tabs 03/24/25 clavulanate 125 mg tablet dicyclomine 20 mg tablet 20 mg PO TID #10 tabs 03/24/25 Allergies Allergy/AdvReac Type Severity Reaction Status Date / Time oxycodone (Percocet) Allergy Mild denies Verified 05/03/25 11:50 [facility] Past Medical History Medical History Malnourished Right sided abdominal pain Odynophagia Alzheimer disease Thoracic compression fracture Pubic bone fracture Closed fracture of iliac wing Closed rib fracture GERD (gastroesophageal reflux disease) HTN (hypertension) Dementia Diabetes Surgical History H/O colonoscopy History of varicose vein ligation and stripping History of hysterectomy History of cholecystectomy Family History Family History Sister Epilepsy Social History Social History Household Members: None Housing: Apartment Do you presently have visiting nurse or other home services: No Patient Tobacco Use Status: Never used Tobacco Smoked in Last 30 Days: No Use of substances other than those prescribed or required for medical reasons: No Advance Directives Date on File: 02/06/22 service: No Current occupational status: disabled Physical Exam ED Vital Signs: Vital Signs - 24 hr 05/03/25 11:49 Temperature 97.2 F Pulse Rate 93 Respiratory Rate 16 Blood Pressure 118/69 Pulse Oximetry 96 Oxygen Delivery Method Room Air BMI result Body Mass Index 24.4 Medical Decision Making Lab Data 05/03/25 12:23 05/03/25 12:23 Labs: Lab Results 05/03/25 Range/Units 12:23 WBC 13.2 H (4.8-10.8) X10*3/uL RBC 3.62 L (4.20-5.50) X10*6/uL Hgb 11.5 L (12.0-16.0) g/dl Hct 33.9 L (37.0-47.0) % MCV 93.6 (80.0-98.0) fL MCH 31.8 (27.0-33.0) pg MCHC 33.9 (31.0-35.0) g/dl RDW 12.8 (11.0-16.0) % Plt Count 162 (160-400) X10*3/uL MPV 9.9 (9.4-12.3) fL Immature Gran % (Auto) 0.3 (0.0-0.4) % Neut % (Auto) 86.5 H (45-73) % Lymph % (Auto) 9.1 L (20-40) % Quay % (Auto) 4.0 (2-11) % Eos % (Auto) 0.0 (0-4) % Baso % (Auto) 0.1 (0-2) % Lymph # (Auto) 1.2 (1.2-4.9) X10*3/uL Quay # (Auto) 0.5 (0.1-1.2) X10*3/uL Eos # (Auto) 0.0 (0.0-0.4) X10*3/uL Baso # (Auto) 0.0 (0.0-0.2) X10*3/uL Abs Immat Gran (auto) 0.04 H (0.00-0.03) X10*3/uL Absolute Neuts (auto) 11.5 H (2.0-8.3) x10*3/uL Absolute Nucleated RBC 0.000 (0.0-0.012) X10*3/uL Nucleated RBC % (auto) 0.0 (0.0-0.2) /100WBC Sodium 137 (135-145) mmol/L Potassium 4.4 (3.3-5.1) mmol/L Chloride 103 (96-108) mmol/L Carbon Dioxide 25 (22-29) mmol/L Anion Gap 13 (12-20) BUN 16 (9-16) mg/dL Creatinine 1.06 (0.5-1.4) mg/dL Estim Creat Clear Calc 30.0 Estimated GFR 49 Random Glucose 126 H (60-115) mg/dL Calcium 8.7 (8.4-10.2) mg/dL Magnesium 2.0 (1.6-2.6) mg/dL Total Bilirubin 1.4 H (0.0-1.0) mg/dL AST 28 (5-31) U/L ALT 14 (0-31) U/L Alkaline Phosphatase 53 (39-117) U/L Total Protein 7.2 (6.5-8.0) g/dL Albumin 4.0 (3.5-5.0) g/dL COVID-19 (DEANGELO) Negative (Negative) COVID-19 Clin Com See Note Influenza Type A (JOHN) Negative (Negative) Influenza Type B (JOHN) Negative (Negative) Influenza A & B Note See Note Discharge Plan Discharge Prescriptions: No Action trazodone 50 mg tablet 0.5 tab PO BEDTIME PRN (Reason: Insomnia) donepezil 10 mg tablet 1 tab PO BEDTIME sertraline 100 mg tablet 2 tab PO QAM mirtazapine 45 mg tablet 1 tab PO BEDTIME cholecalciferol (vitamin D3) 50 mcg (2,000 unit) capsule 1 cap PO QAM ondansetron 4 mg tablet,disintegrating 4 mg PO Q8H PRN (Reason: nausea and vomiting) Qty: 20 0RF dicyclomine 20 mg tablet 20 mg PO TID Qty: 10 0RF amoxicillin-pot clavulanate 875-125 mg tablet 1 tab PO BID 10 Days Qty: 20 0RF pantoprazole 40 mg tablet,delayed release (DR/EC) 40 mg PO BID Qty: 60 6RF acetaminophen 500 mg capsule 500 mg PO QID PRN (Reason: pain) Qty: 90 3RF bisacodyl [Dulcolax (bisacodyl)] 5 mg tablet,delayed release (DR/EC) 10 mg PO BEDTIME PRN (Reason: constipation) 30 Days Qty: 60 3RF lidocaine 5 % adhesive patch,medicated 1 patch topical DAILY ibuprofen [Advil Liqui-Gel] 200 mg capsule 200 mg PO Q6H PRN dicyclomine 10 mg capsule 10 mg PO QID Qty: 120 6RF diclofenac sodium 1 % gel 2 g topical QID Qty: 100 0RF Rx Instructions: apply to single elbow, wrist or hand; for hand includes palm/fingers/back of hand. Do not take Ibuprofen/Motrin or other NSAIDs while using this medication Print Language: [place]an
--- OUTSIDE RECORDS SUMMARY | 2025-05-03 13:04 | XMS_ITS | Patient Health Record ---
Author Organization [facility] Address [address] [place] [address] Care Team Providers Care Section Maintainer Name Role Phone Marisabel Delaney M.D. Primary Care Provider UnaFahad Juares Unavailable [phone] Reason For Referral No Information Plan Of Treatment No Information Insurance Providers Payer Name Payer Address Payer Phone Subscriber Number Group Number Insured Name Patient Relationship to Insured Coverage Start Date Coverage End Date [facility] [address] [place] [address] [id number] JEFFERY LOREDO Self - patient is the insured
--- OUTSIDE RECORDS SUMMARY | 2025-05-03 13:04 | XMS_ITS | Encounter Summary ---
Author Organization [facility] Address [address] [place] [address] Care Team Providers Care Hardware Trainer Name Role Phone Marisabel Delaney MD Primary Care Provider [phone] Reason for Referral * Consultation (Routine) - Authorized Specialty Diagnoses / Procedures Referred By Contac t Referred To Contact Orthopaedic Surgery Diagnoses Tendinopathy of right rotator cuff Marisabel Delaney MD [address] [place] [address] Phone: tel: fax: [facility] [address] [place] [address] Drive [address] [place], [place] Phone: tel: fax: Referral ID Status Reason Start Date Expiration Date Visits Requested Visits Authorized [id number] Authorized Specialty Services Required 09/04/2024 09/04/2025 1 1 Encounter Details Date Type Department Care Team (Late st Contact Info) Description 09/04/2024 Orders Only [facility] [address] [place] [address] Marisabel Delaney MD [address] [place] [address] Tendinopathy of right rotator cuff (Primary Dx) [...] as of this encounter Plan of Treatment Scheduled Referrals Name Type Priority Associated Diagnoses [...] documented as of this encounter Care Teams Hardware Trainer Relationship Specialty Start Date End Date Marisabel Delaney MD [address] [place] [address] PCP - General Family Medicine 04/14/22 documented as of this encounter
--- OUTSIDE RECORDS SUMMARY | 2025-05-03 13:05 | XMS_ITS | Clinical Summary ---
Author Organization [employer] Address [address] [facility] [address] [place] [address] Care Team Providers Care Bilingual Sales Consultant Name Role Phone Marisabel Delaney MD Primary Care Provider [phone] Allergies Active Allergy Reactions Criticality Noted Date Comments Acetaminophen 03/20/2013 Hydrocodone-Acetaminophen 11/17/2021 Oxycodone-Acetaminophen Itching 03/20/2013 Other reaction(s): HIVES Vancomycin 11/17/2021 Medications Diclofenac Sodium 1 % gel Apply topically. 1 Active donepezil (Aricept) 10 MG tablet Take 10 mg by mouth at bedtime. 3 Active mirtazapine (Remeron) 45 MG tablet Take 45 mg by mouth at bedtime. 3 Active Blood Pressure Monitoring (Blood Pressure Cuff) miscIndications: Primary hypertension 1 each in the morning. 1 each 3 Active pantoprazole (ProtoNix) 40 MG EC tablet Take 40 mg by mouth 2 times daily. 4 Active Multiple Vitamin (Multivitamin) tablet TAKE 1 TABLET BY MOUTH EVERY MORNING WITH FOOD 90 tablet 3 4 Active lidocaine (Lidoderm) 5 % patch APPLY 1 PATCH TOPICALLY TO SKIN, LEAVE ON FOR 12 HOURS AND OFF FOR 12 HOURS DIRECTED 4 Active sucralfate (Carafate) 1 GM/10ML suspension Take 10 mL (1 g) by mouth every 12 (twelve) hours if needed (stomach pain). 414 mL 3 5 Active methocarbamol (Robaxin) 500 MG tabletIndication s:Degenerative disc disease, cervical Take 1 tablet (500 mg) by mouth at bedtime. 60 tablet 3 5 025 Active sertraline (Zoloft) 50 MG tabletIndication s:Acute depression Take 50 mg by mouth in the morning. 5 Active Bisacodyl EC 5 MG EC tabletIndication s:Constipation, unspecified constipation type TAKE 2 TABLETS BY MOUTH EVERY DAY AT BEDTIME NEEDED FOR CONSTIPATION 5 Active Active Problems Problem Noted Date Diagnosed Date Prediabetes 03/23/2025 Constipation 03/23/2025 Degenerative disc disease, cervical 11/19/2024 Stage 3a [...] quality of life, day/night sleep schedule Has [employer] hours daily for 2-4 hours Assessment & Plan (02/10/2024 12:58 PM EDT): Continue Donepezil, consider additional agents? Family declines geriatrics consult at this time Her behaviors are not disruptive, but repetitive and perseverating Focus on quality of life, day/night sleep schedule Has [employer] hours daily for 2-4 hours Assessment & Plan (09/21/2023 6:17 AM EST): Continue Donepezil Her behaviors are not disruptive, but repetitive and perseverating Focus on quality of life, day/night sleep schedule Assessment & Plan (11/07/2022 1:43 PM EDT): Continue Donepezil Her behaviors are not disruptive Focus on quality of life Right-sided abdominal pain of unknown cause 10/19 Assessment & Plan (03/23/2025 5:18 PM EDT): Family prefers immediate imaging to treatment/watch and wait Referred to [facility] ER and an expect was called Assessment & Plan (11/19/2024 9:57 AM EDT): Recommend drinking more liquids Call [facility] gastroenterology to make [...] AM EDT): Ascending aorta measured 4.0 in 2016, measured 4.5cm in 2022 Continue to follow serially with echo every 1-2 years Good control of BP Assessment & Plan (07/18/2023 9:40 AM EST): Ascending aorta measured 4.0 in 2016, measured 4.5cm in 2022 Continue to follow serially with echo every 1-2 years Good control of BP Assessment & Plan (05/18/2023 9:00 AM EDT): Needs repeat, also now with R sided pulsatile neck mass Normal inflammatory markers Cataract 11/17/2021 Compression fracture of thoracic vertebra 2021 Diverticular disease 11/17/2021 Assessment & Plan (09/21/2023 6:21 AM EST): On CT scans from last year Warned of how infections in the diverticula can present Dyslipidemia 11/17/2021 Fall 11/17/2021 Glaucoma 11/17/2021 Hearing loss 11/17/2021 Polyradiculopathy 11/17/2021 Overview (11/07/2022): right L4-S1 polyradiculopathy. Bilateral S1 involvement right L4-S1 polyradiculopathy. 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 Mildly reduced LV ejection fraction 45-50% with impaired relaxation filling pattern 2. Moderately dilated left atrium Osteopenia 11/17/2021 03/23/2025 Stage 2 chronic kidney disease 08/20/1959 11/19/2024 Assessment & Plan (05/18/2023 9:05 AM EDT): Continue to monitor, eGFR improved to > 60 on latest check Continue to drink few glasses of water daily Encounters Date Type Department Care Team Description 04/09/2025 1:30 PM EDT Office Visit [facility] ADULT DENTAL [address] [place] [address] Asad Duffy DMD 03/23/2025 4:00 PM EDT Office Visit [facility] MEDICINE [address] [place] [address] Marisabel Delaney MD Prediabetes (Primary Dx); Constipation, unspecified constipation type; 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, psychotic disturbance, mood disturbance, or anxiety (CMS/HCC); Degenerative disc disease, cervical; Compression fracture of T12 vertebra, sequela; Diverticular disease; Right-sided abdominal pain of unknown cause; Primary hypertension 03/23/2025 Orders Only GENERIC EXTERNAL DATA DEPARTMENT Provider, Generic External Data 03/23/2025 Travel 03/20/2025 Telephone [facility] MEDICINE [address] [place] [address] Marisabel Delaney MD Chart Prep 03/17/2025 Telephone [facility] OPTOMETRY [address] [place] [address] Minda Calixto, OD 03/12/2025 Patient Outreach [facility] MEDICINE [address] [place] [address] Marisabel Delaney MD Pre-visit Planning ((Unable to reach for PVP screening, LVM) to be completed in office ) from Last 3 Months Immunizations Immunization Administration Dates Next Due Influenza High-dose Quadriva lent Preservative Free 07/16/2023,06/05/2022,07/27/2020 Influenza Whole 06/13/2012 Influenza, High Dose Seasona l, Preservative Free 06/06/2017,08/22/2016 Influenza, IIV3, injectable 06/12/2019,1 09/14/2017,06/10/2013,05/29,06/30/2011,06/20/2011,06/16/2010 ,09/01/2009 Influenza, Unspecified 06/10/2013 Influenza, seasonal, injecta ble, preservative free 06/12/2019 Pneumococcal Conjugate PCV 13 04/07/2020 Pneumococcal Polysaccharide [...] housing situation today? I have jennifer arellano 03/23/[address] you li ve. Do you have problems with any of the following? None of the above 03/23/2025 Food Insecurity Answer Date Recorded Within the past 12 months, y ou worried that your food would run out before you got money to buy more: Never True 03/23/2025 Within the past 12 months,th e food you bought just didn't last and you didn't have enough money to get more: Never True 11/2024 Transportation Answer Date Recorded In the past 12 months, has l ack of transportation kept you from medical appts, meetings, work or from getting things needed for daily living? No 03/23/2025 Utilities Answer Date Recorded In the past 12 months, has t he electric, gas, oil or water company threatened to shut off services in your home? No 03/23/2025 Depression Answer Date Recorded Patient Health Questionnaire-2 Score 0 08/15/2024 Internet Access Answer Date Recorded Internet Access Q1 No 03/23/2025 Internet Access Q2 I do not want or need it 11/2024 Comments Unknown Sex and Gender Information Value Date Recorded Sex Assigned at Female 06/19/2022 10:16 AM EDT Legal Sex Female 10:16 AM EDT Gender Identity Female 06/19/2022 10:16 AM EDT Sexual Orientation Choose not to disclose 2021 10:16 AM EDT Last Filed Vital Signs Vital Sign Reading Time Taken Comments Blood Pressure 142/80 03/23/2025 4:36 PM EDT Pulse 70 03/23/2025 4:36 PM EDT Temperature 36.2 C (97.2 F) 03/23/2025 4:36 PM EDT Respiratory Rate 17 03/23/2025 4:36 PM EDT Oxygen Saturation 98% 03/23/2025 4:36 PM EDT Inhaled Oxygen Concentration - - Weight 59.8 kg (131 lb 12.8 oz) 03/23/2025 4:36 PM EDT Height 149.9 cm (4' 11 ) 03/23/2025 4:36 PM EDT Body Mass Index 26.62 03/23/2025 4:36 PM EDT Plan of Treatment Health Maintenance Due Date Last Done Comments Dental Prophylaxis 1940 Dental X-Ray: Bitewings 1940 RSV Patients and Patients Aged 60 years or older (1 - 1-dose 75+ series) 2013 Zoster Vaccines (2 of 3) 11/13/2014 09/18/2014 Dental Oral Exam 03/20/2022 09/19/2021, 06/2019, 01/16/2018 Lipid Panel 05/16/2024 05/16/2023, 07/04/2021 COVID-19 Vaccine ( season) 2025 03/14/2022, 10/28/2020, 10/01/2020 Influenza Vaccine (#1) 2025 , 06/05/2022, 07/27/2020, Additional history exists Alcohol/Substance Use Screening 08/15/2025 08/15/2024 Depression Screening 08/15/2025 08/15/2024, 08/15/20 24 Eye Exam 09/17/2025 09/17/2024, 08/21, 09/17/2024, Additional history exists Diabetes: Hemoglobin A1C 09/23/2025 025, 08/15/2024, 09/19/2023, Additional history exists SDOH Screening 03/23/2026 03/23/2025 Tobacco Screening 04/09/2026 04/09/2025 Dental X-Ray: Full Mouth 04/10/2028 025, 09/19/2021, 01/16/2018 DTaP/Tdap/Td Vaccines (4 - Td or Tdap) 01/14/2032 01/13/2022, 04/07/2020, 08/22/2016, Additional history exists Pneumococcal Vaccine: 50+ Years Completed 04/07/2020, 09/01/2009, 08/20/2009, Additional history exists Diabetes: Urine Protein Screening Discontinued 05/17/2023, 07/04/2021 Diabetes: Foot Exam Discontinued HIB Vaccines Aged Out No longer eligi [...] Procedure Name Priority Date/Time Associated Diagnosis Comments CASE PRESENTATION, DETAILED AND EXTENSIVE TREATMENT PLANNING Routine 04/09/2025 1:30 PM EDT PANORAMIC RADIOGRAPHIC IMAGE Routine 04/09/2025 1:30 PM EDT LIMITED ORAL EVALUATION - PROBLEM FOCUSED Routine 04/09/2025 1:[address] ABDOMEN PELVIS W CONTRAST Routine 03/24/2025 2:41 AM EDT MAGNESIUM Routine 03/23/2025 6:16 PM EDT COMPREHENSIVE METABOLIC PANEL Routine 03/23/2025 6:16 PM EDT CBC WITH AUTO DIFFERENTIAL Routine 03/23/2025 6:16 PM EDT URINALYSIS, COMPLETE, WITH REFLEX TO CULTURE Routine 03/23/2025 6:14 PM EDT SARS COV2/INFLUENZA A/B AND RSV RNA QL NAAT Routine 03/23/2025 6:14 PM EDT POCT GLYCATED HEMOGLOBIN, TOTAL Routine 03/23/2025 4:38 PM EDT Prediabetes POCT GLUCOSE Routine 03/23/2025 4:37 PM EDT Prediabetes CULTURE, URINE, ROUTINE Routine 03/23/2025 12:00 AM EDT ALBUMIN, RANDOM URINE W/CREATININE Routine 05/17/2023 11:08 AM EDT LIPID PANEL, STANDARD Routine 05/16/2023 2:30 PM EDT Type 2 diabetes mellitus with diabetic autonomic neuropathy, without long-term current use of insulin ([facility]) PERIODIC ORAL EVALUATION - ESTABLISHED PATIENT Routine 09/19/2021 12:00 AM EST from Last 3 Months or Most Recently Relevant to Health Maintenance Results * CT Abdomen Pelvis w/ Contrast (03/24/2025 2:41 AM EDT) Anatomical Region Laterality Modality Body, Pelvis, Abdomen Computed T omography 03/24/2025 2:41 AM EDT Narrative 03/24/2025 2:43 AM EDT [place] [address] [address] Scan Report Signed Patient: Janice Lomeli MR#: [id number] : 1940 Acct:[id number] Age/Sex: 84 / F ADM Date: 03/23/25 Loc: HO.ED Attending Dr: Ordering Physician: Kaitlyn Carlson DO Date of Service: 03/24/25 Procedure(s): CT abdomen pelvis w IV con Accession Number(s): [id number] cc: Kaitlyn Carlson DO; [facility] Report Number: [id number]: Total DLP = 441.00 mGy-cm CLINICAL HISTORY: hx diverticulitis, RLQ abd pain CT abdomen and pelvis with contrast Comparison: CT of the abdomen and pelvis from 06/13/2024 Findings: Small bilateral pleural effusions with underlying atelectasis/consolidation of the imaged lung bases superimposed on chronic lung disease. Isoxhgci-gt-nbjgvg cardiomegaly is redemonstrated with multi chamber enlargement of the heart. Gallbladder is surgically absent. Mild adrenal hyperplasia. Spleen is nonenlarged. Moderate volume loss of the pancreas. No hydronephrosis. No small bowel obstruction. Wall thickening of the large intestine is nonspecific and concerning for colitis and diverticulitis, including the sigmoid colon. Imaged appendix is mildly patulous and measuring at the upper limits of normal without definite acute appendicitis (imaged 39 of series 3). Calcified and noncalcified plaque involving the imaged aorta and its branches. Small mesenteric lymph nodes are nonspecific and likely reactive. Fluid in the abdomen and pelvis may be reactive and/or secondary to colitis and diverticulitis. Uterus is anteverted. No adnexal soft tissue mass by CT. Mild wall thickening of the urinary bladder is nonspecific. Redemonstration of the chronic appearing old pelvis deformities including healed/remodeled comminuted right-sided pubic rami fractures. Mild-moderate osteoarthritis of the both hips. Imaged vertebral height losses including moderate height loss of the T12 appear old/chronic and accentuated by Schmorl's nodes. Facet arthropathy is multifocal. CT findings of spinal stenosis including multifocal foraminal narrowing, including imaged lumbosacral junction. Vacuum disc phenomenon is multifocal. Partial transitional vertebral anatomy of the lumbosacral junction. IMPRESSION: 1. Wall thickening of the large intestine is nonspecific and concerning for comminution of the colitis and diverticulitis, including sigmoid colon. 2. No small bowel obstruction. This document has been electronically signed by: Piyush Phillip MD on 03/24/2025 02:41:08 Dictated By: Piyush Phillip MD Signed By: <Electronically signed by Piyush Phillip MD in OV> 03/24/25 0242 DD/ 024 TD/TT: 03/24/25 024 Pound Attendant: Procedure Note Donotuseinterpreter, Image - 03/24/[address] [place] [address] [address] Scan Report Signed Patient: Mery Lomeli#: [id number] : 1941Acct:[id number] Age/Sex: 84 / FADM Date: 03/23/25 Loc: HO.ED Attending Dr: Ordering Physician: Kaitlyn Carlson DO Date of Service: 03/24/25 Procedure(s): CT abdomen pelvis w IV con Accession Number(s): [id number] cc: Kaitlyn Carlson DO; [facility] Report Number: [id number]: Total DLP = 441.00 mGy-cm CLINICAL HISTORY: hx diverticulitis, RLQ abd pain CT abdomen and pelvis with contrast Comparison: CT of the abdomen and pelvis from 06/13/2024 Findings: Small bilateral pleural effusions with underlying atelectasis/consolidation of the imaged lung bases superimposed on chronic lung disease. Gquiveny-ws-qxwzlk cardiomegaly is redemonstrated with multi chamber enlargement of the heart. Gallbladder is surgically absent. Mild adrenal hyperplasia. Spleen is nonenlarged. Moderate volume loss of the pancreas. No hydronephrosis. No small bowel obstruction. Wall thickening of the large intestine is nonspecific and concerning for colitis and diverticulitis, including the sigmoid colon. Imaged appendix is mildly patulous and measuring at the upper limits of normal without definite acute appendicitis (imaged 39 of series 3). Calcified and noncalcified plaque involving the imaged aorta and its branches. Small mesenteric lymph nodes are nonspecific and likely reactive. Fluid in the abdomen and pelvis may be reactive and/or secondary to colitis and diverticulitis. Uterus is anteverted. No adnexal soft tissue mass by CT. Mild wall thickening of the urinary bladder is nonspecific. Redemonstration of the chronic appearing old pelvis deformities including healed/remodeled comminuted right-sided pubic rami fractures. Mild-moderate osteoarthritis of the both hips. Imaged vertebral height losses including moderate height loss of the T12 appear old/chronic and accentuated by Schmorl's nodes. Facet arthropathy is multifocal. CT findings of spinal stenosis including multifocal foraminal narrowing, including imaged lumbosacral junction. Vacuum disc phenomenon is multifocal. Partial transitional vertebral anatomy of the lumbosacral junction. IMPRESSION: 1. Wall thickening of the large intestine is nonspecific and concerning for comminution of the colitis and diverticulitis, including sigmoid colon. 2. No small bowel obstruction. This document has been electronically signed by: Piyush Phillip MD on 03/24/2025 02:41:08 Dictated By: Piyush Phillip MD Signed By: <Electronically signed by Piyush Phillip MD in OV> 03/24/25241 DD/ 0 TD/TT: 03/24/25240 Pound Attendant: [facility] External Provider IMG CT PROCEDURES Final Result * (ABNORMAL) CBC auto differential (03/23/2025 6:16 PM EDT) White Blood Count 7.2 4.8 - 10.8 X10*3/uL [facility] Red Blood Count 3.78(L) 4.20 - 5.50 X10*6/uL [facility] Hemoglobin 11.8(L) 12.0 - 16.0 g/dl [facility] Hematocrit 35.9(L) 37.0 - 47.0 % [facility] Mean Corpuscular Volume 95.0 80.0 - 98.0 fL [facility] Mean Corpuscular Hemoglobin 31.2 27.0 - 33.0 pg [facility] Mean Corpuscular HGB Conc 32.9 31.0 - 35.0 g/dl [facility] Red Cell Distribution Width 12.7 11.0 - 16.0 % [facility] Platelet Count 167 160 - 400 X10*3/uL [facility] Mean Platelet Volume 9.9 9.4 - 12.3 fL [facility] Neutrophils Percent Auto 55.3 45 - 73 % [facility] Imm Gran Pct Auto 0.1 0.0 - 0.4 % [facility] Lymphocytes Percent Auto 33.5 20 - 40 % [facility] Monocytes Percent Auto 8.8 2 - 11 % [facility] Eosinophils Percent Auto 1.7 0 - 4 % [facility] Basophils Percent Auto 0.6 0 - 2 % [facility] NRBC Pct Auto 0.0 0.0 - 0.2 /100WBC [facility] Neutrophils Absolute Auto 4.0 2.0 - 8.3 x10*3/uL [facility] Imm Gran Abs Auto 0.01 0.00 - 0.03 X10*3/uL [facility] Lymphocytes Absolute Auto 2.4 1.2 - 4.9 X10*3/uL [facility] Monocytes Absolute Auto 0.6 0.1 - 1.2 X10*3/uL [facility] Eosinophils Absolute Auto 0.1 0.0 - 0.4 X10*3/uL [facility] Basophils Absolute Auto 0.0 0.0 - 0.2 X10*3/uL [facility] NRBC Abs Auto 0.000 0.0 - 0.012 X10*3/uL [facility] 03/23/2025 6:16 PM EDT 03/23/2025 6:19 PM EDT Generic External Data Provider LAB BLOOD ORDERAB LES Final Result Performing Organization Address [facility] [[email or web address]] Co de Phone Number [facility] [address] [place] [phone] * Magnesium (03/23/2025 6:16 PM EDT) Pathologist [facility] Magnesium 2.1 1.6 - 2.6 mg/dL [facility] 03/23/2025 6:16 PM EDT 03/23/2025 6:19 PM EDT Generic External Data Provider LAB BLOOD ORDERAB LES Final Result Performing Organization Address [facility] de Phone Number [facility] [address] [place] [phone] * (ABNORMAL) Comprehensive Metabolic Panel (03/23/2025 6:16 PM EDT) Pathologist [facility] Sodium 143 135 - 145 mmol/L [facility] Potassium 4.3 3.3 - 5.1 mmol/L [facility] Chloride 106 96 - 108 mmol/L [facility] Carbon Dioxide 31(H) 22 - 29 mmol/L [facility] Anion Gap 10(L) 12 - 20 [facility] Urea Nitrogen (BUN) 23(H) 9 - 16 mg/dL [facility] Creatinine, Serum 0.92 0.5 - 1.4 mg/dL [facility] Creatinine Clr Calc Pharmacy 34.3 [facility] Comment:Provided height and weight: 149.86 cm,59 kg.eGFR (calculated from the MDRD study equation) and eCrCl(calculated from the Cockcroft-Gault equation) are based ondifferent parameters and may not yield comparable results.If eCrCl result is absurd, please check patient'sheight/weight. Estimated Glomerular Filt Rate 58 [facility] Comment:Chronic Kidney Disea se: Estimated GFR < 60 mL/min/1.75i0Kpfner Kidney Disease: Estimated GFR < 15 mL/min/1.73m2 Glucose 102 60 - 115 mg/dL [facility] Calcium 9.2 8.4 - 10.2 mg/dL [facility] Bilirubin, Total 0.5 0.0 - 1.0 mg/dL [facility] Aspartate Amino Transferase 31 5 - 31 U/L [facility] Alanine Aminotransferase 19 0 - 31 U/L [facility] Total Protein 7.4 6.5 - 8.0 g/dL [facility] Albumin Level 4.1 3.5 - 5.0 g/dL [facility] Alkaline Phosphatase 60 39 - 117 U/L [facility] 03/23/2025 6:16 PM EDT 03/23/2025 6:19 PM EDT us Generic External Data Provider LAB BLOOD ORDERAB LES Final Result [facility] [address] [place] [phone] * (ABNORMAL) Urinalysis, Complete, with Reflex to Culture (03/23/2025 6:14 PM EDT) Color Urine Dark Yellow [facility] Appearance Urine Clear [facility] PH 5.5 5.0 - 9.0 [facility] Glucose Urine UA Negative Negative mg/dL [facility] Urine Blood Negative Negative [facility] Specific [place] - Urine 1.025 1.005 - 1.025 [facility] Urine Protein Negative Neg-Trace mg/dL [facility] Urine Ketones Trace Negative mg/dL [facility] Nitrite Urine Negative Negative [facility] Leukocyte Esterase Urine Small (1+)(A) Negative [facility] RBC Urine 0-2 0 - 2 /HPF [facility] Urine WBC 0-5 0 - 5 /HPF [facility] Urine Squamous Epithelial Cell 3-5 0 - 2 /HPF [facility] Urine Bacteria None Seen None Seen [facility] Hyaline Casts, Urine 0-2 0 - 2 /LPF [facility] 03/23/2025 6:14 PM EDT 03/23/2025 6:19 PM EDT Narrative [facility] - 03/23/2025 6:44 PM EDT [id number], Clean Catch us Generic External Data Provider LAB URINE ORDERAB LES Final Result [facility] [address] [place] [phone] * SARS-CoV-2 RNA, Influenza A/B, and RSV RNA, Ql NAAT (03/23/2025 6:14 PM EDT) Influenza A PCR NEGATIVE Negative [facility] Influenza B PCR NEGATIVE Negative [facility] Resp Syncy Virus RNA Qual PCR NEGATIVE Negative [facility] SARS COV2 PCR NEGATIVE Negative [facility] Comment:All test results mus t be correlated with clinical findings.Negative results do not preclude SARS-CoV2, influenza Avirus, influenza B virus and/or RSV infectionand should not be used as the sole basis for treatment orother patient management decisions. Negative results must becombined with clinical observations, patient history, andepidemiological information.This test has not been evaluated for monitoring treatment ofinfection.This test has been authorized by the FDA under an EmergencyUse Authorization (EUA) for use by authorized laboratories.Testing performed on the [employer] GeneXpert utilizingreal-time RT-PCR.All SARS CoV2 and positive influenza A/B results arereported to [facility]. 03/23/2025 6:14 PM EDT 03/23/2025 6:19 PM EDT us Generic External Data Provider LAB MICROBIOLOGY - GENERAL ORDERABLES Final Result [facility] [address] [place] [phone] * (ABNORMAL) POCT HGB A1C (03/23/2025 4:38 PM EDT) Hemoglobin A1C 5.8(A) 4.0 - 5.7 % QC Media Lot # [id number] Lot# Expiration Date 3570,264 Blood 03/23/2025 4:38 PM EDT Result [facility] Marisabel Delaney MD POINT OF CARE TEST ENTER/EDIT ORDERABLES Final Result * POCT Glucose (03/23/2025 4:37 PM EDT) Glucose Blood, POC 198 60 - 200 mg/dL QC Media Lot # [id number] Lot# Expiration Date ,906,746 Blood Capillary blood specimen / Unknown 03/23/2025 4:37 PM EDT Result [facility] Marisabel Delaney MD POINT OF CARE TEST ENTER/EDIT ORDERABLES Final Result * Culture, Urine, Routine (03/23/2025 12:00 AM EDT) Urine Urine specimen obtained by clean catch procedure / Unknown 03/23/2025 03/23/2025 Comment:[facility] Narrative [facility] [facility] - 03/25/2025 9:32 AM EDT Lactobacillus species Quant 10,000 to 50,000 cfu/mL Susc N/A Susceptibility not routinely performed on this isolate. Specimen Source: Urine clean catch Generic External Data Provider LAB MICROBIOLOGY - GENERAL ORDERABLES Final Result [facility] [address] [place] [phone] * Albumin, Random Urine W/Creatinine (05/17/2023 11:08 AM EDT) Creatinine, Urine 41.70 mg/dL [facility] Microalbumin Urine 5.0 mg/L H [facility] Microalbum Creatinine Ratio Ur 11.9 <30 ug/mg cr [facility] Comment:Albumin/Creatinine R atio Reference Ranges: Normal: < 30 ug/mg creatinine Microalbuminuria: 30 - 300 ug/mg creatinineClinical Albuminuria: > 300 ug/mg creatinine 05/17/2023 11:0 8 AM EDT 05/17/2023 5:26 PM EDT us Marisabel Delaney MD LAB URINE ORDERABLES Final Res ult [facility] [address] [place] [phone] * (ABNORMAL) Lipid Panel, Standard (05/16/2023 2:30 PM EDT) Triglycerides 121 <150 mg/dL [facility] Comment:Desirable Triglyceri de: less than 150 mg/dLBorderline High Triglyceride 150-199 mg/dLHigh Triglyceride: 200-499 mg/dLVery High Triglyceride: greater than or equal to 5OO mg/dL Cholesterol 177 <200 mg/dL [facility] Comment:Desirable Cholestero l: less than 200 mg/dLBorderline High Cholesterol: 200-239 mg/dLHigh Cholesterol: greater than 239 mg/dL LDL Cholesterol Calculated 100(H) <100 mg/dL [facility] Comment:Desirable LDL: less than 100 mg/dLNear Optimal/Above Optimal LDL: 110- 129 mg/dLBorderline High LDL: 130-159 mg/dLHigh LDL: 160-189 mg/dLVery High LDL: greater than or equal to 190 mg/dL HDL Cholesterol 53 >40 mg/dL [facility] Comment:Desirable HDL: great er than 40 mg/dL Note: This HDL assay may give artificially low results in patients with liver disease. Blood Venous blood specimen / Unknown 05/16/2023 2:30 PM EDT 05/16/2023 5:17 PM EDT us Marisabel Delaney MD LAB BLOOD ORDERABLES Final Res ult [facility] [address] [place] [phone] from Last 3 Months or Most Recently Relevant to Health Maintenance Insurance [facility] LONG TERM OPTIONS (O D-SNP) D[facility]AL [facility] Care Teams Bilingual Sales Consultant Relationship Specialty Start Date End Date Marisabel Delaney MD [address] [place] [phone] PCP - General Family Medicine 04/14/22
--- OUTSIDE RECORDS SUMMARY | 2025-05-03 13:05 | XMS_ITS | Clinical Summary ---
Author Organization [facility] Address [address] [place] [phone] Phone Care Team Providers Care Immunology Teacher Name Role Phone Inés Frances Primary Care [...] complete this topic Insurance [facility] ([id number]) [facility] ([id number]) Care Teams Immunology Teacher Relationship Specialty Start Date End Date Frances Conte PCP - General Family Medicine 07/11/21
--- OUTSIDE RECORDS SUMMARY | 2025-05-03 13:05 | XMS_ITS | Encounter Summary ---
Author Organization [employer] [facility] Address [address] [place] [address] Care Team Providers Care Oil Pump Station Operator Chief Name Role Phone Marisabel Delaney MD Primary Care Provider Encounter Details Date Type Department Care Team (Late st Contact Info) Description 11/30/2022 Orders Only [facility] [address] [place], [place] [phone] Marisabel Delaney MD [address] [place], [place] [phone] Colitis (Primary Dx) Social History Tobacco Use [...] as of this encounter Plan of Treatment Not on file documented as of this encounter Visit Diagnoses Diagnosis Colitis- Primary Other and unspecified noninfectious gastroenteritis and colitis documented in this encounter Care Teams Oil Pump Station Operator Chief Relationship Specialty Start Date End Date Marisabel Delaney MD [address], [place] [phone] PCP - General Family Medicine 04/14/22 documented as of this encounter
--- NOTE | 2025-05-03 13:26 | ECG_ITS ---
Test Reason : CHEST PAIN Blood Pressure : */* mmHG Vent. Rate : 82 BPM Atrial Rate : 82 BPM P-R Int : 170 ms QRS Dur : 98 ms QT Int : 382 ms P-R-T Axes : 7 -33 138 degrees QTcB Int : 446 ms Normal sinus rhythm Left axis deviation Left ventricular hypertrophy ( R in aVL , Luan product , Romhilt-Nieto ) ST & T wave abnormality, consider lateral ischemia Abnormal ECG When compared with ECG of 13-Jun-2024 20:39, No significant change was found Referred By: Sonam Anderson Electronically Signed By: BAY ALTAMIRANO
[2025-05-03 13:43] VITALS: BP 135/63; PULSE 81; RESP 22; O2SAT 96
[2025-05-03 13:48] LABS: Lipase 11 U/L (8-78)
[2025-05-03 13:56] LABS: IDNOW Serial# 6674DD1D; Strep A Nucleic Acid Negative (Negative)
[2025-05-03 14:07] LABS: Troponin-I High Sensitivity 19.2 ng/L (<3.5-17.0)
[2025-05-03] MEDS: iohexoL 350 MG/ML 100 ML INFUS..BTL IV (15:16)
[2025-05-03 15:43] LABS: Appearance Urine Clear; Glucose Urine UA Negative (Negative); PH >= 9.0 (5.0-9.0); Specific Gravity - Urine 1.025 (1.005-1.025); UMIC TRIGGER UACC YES
[2025-05-03 17:20] VITALS: PULSE 83; RESP 19; TEMP 38.7; O2SAT 99
[2025-05-03 17:44] LABS: Troponin-I High Sensitivity 25.6 ng/L (<3.5-17.0)
[2025-05-03 17:53] VITALS: BP 114/54; PULSE 82; RESP 16; TEMP 37.3; O2SAT 94
--- NOTE | 2025-05-03 17:53 | ECG_ITS ---
Test Reason : ELEVANTED TROP Blood Pressure : */* mmHG Vent. Rate : 83 BPM Atrial Rate : 83 BPM P-R Int : 178 ms QRS Dur : 94 ms QT Int : 398 ms P-R-T Axes : 20 -35 155 degrees QTcB Int : 467 ms Normal sinus rhythm with sinus arrhythmia Left axis deviation Left ventricular hypertrophy with repolarization abnormality ( R in aVL , [place] product , Romhilt-Nieto ) Abnormal ECG When compared with ECG of 03-May-2025 13:54, No significant change was found Referred By: Sonam Anderson Electronically Signed By: BAY ALTAMIRANO
[2025-05-03 18:08] VITALS: TEMP 38.2
--- NOTE | 2025-05-03 20:13 | PM.CNGS ---
History of Present Illness Consult details Consult date: 05/03/25 Narrative: 84-year-old female with multiple medical problems including dementia, depression, CHF, cardiomyopathy, chronic kidney disease, brought to the ED today by her family because of abdominal pain. She is known to have we colitis and apparently has had previous admissions for this in [facility]. However, she had been complaining apparently of some abdominal pain and chest pain for the past 3 days which appeared to have been worsening She has a bowel movements. She has had no reported vomiting There was no fever or chills. Review of Systems Review of Systems: Yes Unobtainable due to mental condition and Unobtainable due to mental status Cardiovascular: Cardiovascular: Reports chest pain Gastrointestinal: Gastrointestinal: Reports abdominal pain PMFSH Past Medical History Medical History Diverticulitis of colon with perforation Malnourished Right sided abdominal pain Odynophagia Alzheimer disease Thoracic compression fracture Pubic bone fracture Closed fracture of iliac wing Closed rib fracture GERD (gastroesophageal reflux disease) HTN (hypertension) Dementia Diabetes Family History Family History Sister Epilepsy Surgical History Surgical History H/O colonoscopy History of varicose vein ligation and stripping History of hysterectomy History of cholecystectomy Social History Social History Household Members: None Housing: Apartment Do you presently have visiting nurse or other home services: No Patient Tobacco Use Status: Never used Tobacco Advance Directives Date on File: 02/06/22 service: No Current occupational status: disabled Meds Allergies Allergy/AdvReac Type Severity Reaction Status Date / Time oxycodone (Percocet) Allergy Mild denies Verified 05/03/25 11:50 Active Medications: Current Medications Lactated Ringer's (Lr) 1,000 mls @ 500 mls/hr IV .Q2H ONE Stop: 05/03/25 21:46 Home Medications ?Medication ?Instructions ?Recorded ?Confirmed ?Last Taken ?Type donepezil 10 mg tablet 1 tab PO BEDTIME 01/13/22 05/04/25 01/12/22 History mirtazapine 45 mg tablet 1 tab PO BEDTIME 01/13/22 05/04/25 01/12/22 History sertraline 50 mg tablet 50 mg PO QAM 05/03/25 05/04/25 Unknown History cholecalciferol (vitamin D3) 50 50 mcg PO DAILY 05/04/25 05/04/25 Unknown History mcg (2,000 unit) capsule (Vitamin D3) multivitamin 1 tab PO DAILY 05/04/25 05/04/25 Unknown History pantoprazole 40 mg tablet,delayed 40 mg PO BID@0630,1630 05/04/25 05/04/25 Unknown History release Physical Exam Vital Signs: Vital Signs: Last Vital Signs Temp 100.7 F H 05/03/25 18:08 Pulse 82 05/03/25 17:53 Resp 16 05/03/25 17:53 BP 114/54 L 05/03/25 17:53 Pulse Ox 94 05/03/25 17:53 O2 Del Method Room Air 05/03/25 17:53 BMI result Body Mass Index 24.4 Const: Other: Opens eyes but does not verbally communicate, frail looking Resp: Other: Mildly short of breath Cardio: Rate: regular rate GI: Palpation (GI): Soft to palpation and Tenderness to palpation present (GI) (Significantly tender on the lower abdomen, some guarding) Results Labs 05/04/25 05:02 05/04/25 05:02 Labs: Abnormal lab results 05/03/25 05/03/25 05/03/25 Range/Units 12:23 13:39 15:37 WBC 13.2 H (4.8-10.8) X10*3/uL RBC 3.62 L (4.20-5.50) X10*6/uL Hgb 11.5 L (12.0-16.0) g/dl Hct 33.9 L (37.0-47.0) % Neut % (Auto) 86.5 H (45-73) % Lymph % (Auto) 9.1 L (20-40) % Abs Immat Gran (auto) 0.04 H (0.00-0.03) X10*3/uL Absolute Neuts (auto) 11.5 H (2.0-8.3) x10*3/uL Random Glucose 126 H (60-115) mg/dL Total Bilirubin 1.4 H (0.0-1.0) mg/dL Troponin I High Sens 19.2 H (<3.5-17.0) ng/L Urine Protein 30 (1+) H (Neg-Trace) mg/dL Ur Leukocyte Esterase Trace H (Negative) 05/03/25 Range/Units 17:16 WBC (4.8-10.8) X10*3/uL RBC (4.20-5.50) X10*6/uL Hgb (12.0-16.0) g/dl Hct (37.0-47.0) % Neut % (Auto) (45-73) % Lymph % (Auto) (20-40) % Abs Immat Gran (auto) (0.00-0.03) X10*3/uL Absolute Neuts (auto) (2.0-8.3) x10*3/uL Random Glucose (60-115) mg/dL Total Bilirubin (0.0-1.0) mg/dL Troponin I High Sens 25.6 H (<3.5-17.0) ng/L Urine Protein (Neg-Trace) mg/dL Ur Leukocyte Esterase (Negative) Short CBC 05/03/25 Range/Units 12:23 WBC 13.2 H (4.8-10.8) X10*3/uL Hgb 11.5 L (12.0-16.0) g/dl Hct 33.9 L (37.0-47.0) % Plt Count 162 (160-400) X10*3/uL BMP 05/03/25 12:23 Sodium 137 Potassium 4.4 Chloride 103 Carbon Dioxide 25 BUN 16 Creatinine 1.06 Calcium 8.7 Liver Function 05/03/25 Range/Units 12:23 Total Bilirubin 1.4 H (0.0-1.0) mg/dL AST 28 (5-31) U/L ALT 14 (0-31) U/L Alkaline Phosphatase 53 (39-117) U/L Albumin 4.0 (3.5-5.0) g/dL Urine 05/03/25 Range/Units 15:37 Urine Color Yellow Urine Appearance Clear Urine pH >= 9.0 (5.0-9.0) Ur Specific [place] 1.025 (1.005-1.025) Urine Protein 30 (1+) H (Neg-Trace) mg/dL Urine Glucose (UA) Negative (Negative) mg/dL All other labs normal. Imaging Abdomen CT scan report/results: report reviewed and image reviewed CT scan - chest: report reviewed and image reviewed Additional studies: IMPRESSION: 1. Sigmoid colon pericolonic inflammation with adjacent pneumoperitoneum; sigmoid diverticulitis with micro perforation. Clinical correlation suggested. 2. Hepatic steatosis. 3. Cardiomegaly. 4. [id number] calcified atherosclerotic disease of the abdominal aorta. 5. Prior cholecystectomy. Assessment and Plan (1) Diverticulitis of colon with perforation: Status: Acute 84-year-old female with dementia, cardiomyopathy, CHF, chronic kidney disease here because of the abdominal pain. I have reviewed her CAT scan. This shows inflammatory changes in the sigmoid along with surrounding free air in the segment. She is also significantly tender. I had a very long discussion with the sons at bedside about her options. I explained to them that surgical resection with laparotomy and colostomy is the surgical treatment and this we will need to be done urgently because of her significant tenderness. She obviously presents with significant perioperative risks in view of her multiple medical comorbidities and advanced age. The family has explicitly stated that they did not want her to have surgery. They want her to only have antibiotics at this time. The understand that this is unlikely to achieve cure and she will likely get progressively worse. They said that they understand this but they still have ?hope? she will get better without surgery. I also explained the importance of defining goals of care especially with a DNR issue or comfort care issues. They said that want her to be resuscitated if she codes tonight and they we will re-evaluate tomorrow when all the other siblings. The above discussion was done with David the son and a 2nd sent at bedside along with the hospitalist and the crucible furnace tender We spent about an hour with the family explaining the above. The plan at this time is to admit her for IV antibiotics. They will decide on the DNR issue tomorrow morning. They understand that her overall prognosis is grim at this time. Procedures Date of Service Date of Service: 05/07/25
--- NOTE | 2025-05-03 20:41 | PM.IMHP ---
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 Patient has had no nausea or vomiting. Patient was complaining of sore throat but no fever. Patient currently interactive with son, considered coherent and is aware that she is being admitted to the hospital for microperforation involving diverticuli/ colon via CT scan with evidence of PNA. LA WNL, leukocytosis present, fever notes earlier 101 but no N/V. Pt started on Zosyn in the ED with morphine for pain prn. The ED provider did initially contact Dr. Ramirez who is on-call for surgery and patient was seen immediately by surgeon. Surgeon had a arianna discussion with family and indicated that surgery would result in a colostomy bag that would be permanent. Both sons agreed that they did not want surgery for their loved one due to the colostomy bag. Dr. Ramirez also indicated there was significant risk associated with surgery and that patient may not survive the actual surgery. Sons were told that antibiotics would continue and they felt that that was an option to cure the problem that patient currently has. Education provided to indicate that there is no guarantee that the antibiotics would cure patient's current situation. Both sons were advised that patient's current condition could end with loss of life. There are multiple family members involved and the oldest sibling alive is currently not present today to make advanced directive decision. There is no active healthcare proxy in writing. Both sons present have decided that patient will remain a full code on admission with the understanding that if her heart were to stop or she could not breathe on her own she would receive compressions and would be placed on a mechanical ventilator. This was explained at length with medical management specialist present. Sons indicated that if they signed the MOLST now and something happened to pt overnight, they would be blamed for her passing. MOLST form was presented but because the oldest sibling is not present, the MOLST could not be completed at this time. The oldest sibling will be present tomorrow and the family would like to address the MOLST at that time. Dr. Ramirez also present and agrees with current plan. Per Dr. Ramirez, surgery will continue to see pt daily. Family educated that pt's overall prognosis is guarded. Review of Systems Review of Systems: Patient is having significant abdominal tenderness especially with examination. Patient denies any current nausea or vomiting. Yes Unobtainable due to mental status (Dementia) [facility] Medical History Diverticulitis of colon with perforation Malnourished Right sided abdominal pain Odynophagia Alzheimer disease Thoracic compression fracture Pubic bone fracture Closed fracture of iliac wing Closed rib fracture GERD (gastroesophageal reflux disease) HTN (hypertension) Dementia Diabetes Cognitive capacity: Awake and alert Functional capacity: bed bound Patient : No Family History Sister Epilepsy Surgical History H/O colonoscopy History of varicose vein ligation and stripping History of hysterectomy History of cholecystectomy Social History Household Members: None Housing: Apartment Do you presently have visiting nurse or other home services: No Patient Tobacco Use Status: Never used Tobacco Advance Directives Date on File: 02/06/22 service: No Current occupational status: disabled Ebola Risk: Travel/Contact With Anyone From Affected Area/s: No Has Patient Experienced Ebola Symptoms: No Meds Allergies Allergy/AdvReac Type Severity Reaction Status Date / Time oxycodone (Percocet) Allergy Mild denies Verified 05/03/25 11:50 Active Medications: Current Medications Acetaminophen (Acetaminophen 325 Mg Tablet) 650 mg PO Q6H PRN PRN Reason: Pain, Mild 1-3,fever,headache Calcium Carbonate (Calcium Carbonate 750 Mg Tab.Chew) 750 mg PO Q4H PRN PRN Reason: Heartburn Heparin Sodium (Porcine) (Heparin Sodium,Porcine 5,000 Unit/Ml Vial) 5,000 unit SUBCUT Q12H JOSE FRANCISCO Lactated Ringer's (Lr) 1,000 mls @ 500 mls/hr IV .Q2H ONE Stop: 05/03/25 21:46 Lactated Ringer's (Lr) 1,000 mls @ 100 mls/hr IVCONT .Q10H JOSE FRANCISCO Piperacillin Sod/Tazobactam (Sod 3.375 gm/ Sodium Chloride) 50 mls @ 100 mls/hr IV Q6H JOSE FRANCISCO Magnesium Hydroxide (Milk Of Magnesia 30 Ml Oral.Susp) 30 ml PO DAILY PRN PRN Reason: Constipation Melatonin (Melatonin 3 Mg Tablet) 6 mg PO BEDTIME PRN PRN Reason: Insomnia Morphine Sulfate (Morphine Sulfate 2 Mg/Ml Cartridge) 2 mg IVPUSH Q4H PRN; Protocol PRN Reason: Pain, Severe (Pain Scale 7-10) Ondansetron HCl (Ondansetron Hcl 4 Mg/2 Ml Vial) 4 mg IVPUSH Q8H PRN PRN Reason: Nausea and Vomiting Sodium Chloride (0.9 % Sodium Chloride Flush 3 Ml Syringe) 3 ml IVFLUSH QSHIFT [facility] Home Medications ?Medication ?Instructions ?Recorded ?Confirmed ?Last Taken ?Type donepezil 10 mg tablet 1 tab PO BEDTIME 01/13/22 12/05/24 01/12/22 History mirtazapine 45 mg tablet 1 tab PO BEDTIME 01/13/22 12/05/24 01/12/22 History sertraline 50 mg tablet 50 mg PO QAM 05/03/25 Unknown History cholecalciferol (vitamin D3) 50 50 mcg PO DAILY 05/04/25 Unknown History mcg (2,000 unit) capsule (Vitamin D3) multivitamin 1 tab PO QAM 05/04/25 Unknown History Physical Exam Vital Signs and Narrative: Vital Signs: Last Vital Signs Temp 100.7 F H 05/03/25 18:08 Pulse 82 05/03/25 17:53 Resp 16 05/03/25 17:53 BP 114/54 L 05/03/25 17:53 Pulse Ox 94 05/03/25 17:53 O2 Del Method Room Air 05/03/25 17:53 BMI result Body Mass Index 24.4 Alert to self and sons present, able to answer questions when asked, unable to give good history. Neuro: CN II-X11 intact, visual acuity intact EYES: PERRLA, EOM intact, sclerae nonicteric ENT: hearing intact, uvula midline, lips moist, nares patent no epistaxis Cardiac: S1 S2 RRR, no murmur, no JVD, no edema in Lower ext Pulmonary: lungs diminished bilaterally Abdominal: Abdomen distended, mild tympany, tenderness with palpation especially the mid and lower regions MSK: strength 2-3/5 upper and lower extremities : no CVA tenderness no bladder distension Extremities: no edema in lower extremities, PT and DP pulses palpable +2 Psych: mood calm, judgement and insight poor Skin: No new lesions or rashes Results Labs 05/04/25 05:02 05/04/25 05:02 Labs: Laboratory Results - last 24 hr 05/03/25 05/03/25 05/03/25 12:23 13:39 15:37 MCV 93.6 MCH 31.8 MCHC 33.9 RDW 12.8 Plt Count 162 MPV 9.9 Immature Gran % (Auto) 0.3 Neut % (Auto) 86.5 H Lymph % (Auto) 9.1 L [place] % (Auto) 4.0 Eos % (Auto) 0.0 Baso % (Auto) 0.1 Lymph # (Auto) 1.2 [place] # (Auto) 0.5 Eos # (Auto) 0.0 Baso # (Auto) 0.0 Abs Immat Gran (auto) 0.04 H Absolute Neuts (auto) 11.5 H Absolute Nucleated RBC 0.000 Nucleated RBC % (auto) 0.0 Anion Gap 13 Estim Creat Clear Calc 30.0 Estimated GFR 49 Random Glucose 126 H Lactic Acid Calcium 8.7 Magnesium 2.0 Total Bilirubin 1.4 H AST 28 ALT 14 Alkaline Phosphatase 53 Total Protein 7.2 Albumin 4.0 Lipase 11 Urine Color Yellow Urine Appearance Clear Urine pH >= 9.0 Ur Specific [place] 1.025 Urine Protein 30 (1+) H Urine Glucose (UA) Negative Urine Ketones Negative Urine Blood Negative Urine Nitrite Negative Ur Leukocyte Esterase Trace H Urine RBC 0-2 Urine WBC 0-5 Ur Squamous Epith Cells 3-5 Urine Bacteria None Seen Hyaline Casts 0-2 COVID-19 (DEANGELO) Negative COVID-19 Clin Com See Note Influenza Type A (JOHN) Negative Influenza Type B (JOHN) Negative Influenza A & B Note See Note S. pyogenes GrpA JOHN Negative 05/03/25 17:45 MCV MCH MCHC RDW Plt Count MPV Immature Gran % (Auto) Neut % (Auto) Lymph % (Auto) [place] % (Auto) Eos % (Auto) Baso % (Auto) Lymph # (Auto) [place] # (Auto) Eos # (Auto) Baso # (Auto) Abs Immat Gran (auto) Absolute Neuts (auto) Absolute Nucleated RBC Nucleated RBC % (auto) Anion Gap Estim Creat Clear Calc Estimated GFR Random Glucose Lactic Acid 0.9 Calcium Magnesium Total Bilirubin AST ALT Alkaline Phosphatase Total Protein Albumin Lipase Urine Color Urine Appearance Urine pH Ur Specific [place] Urine Protein Urine Glucose (UA) Urine Ketones Urine Blood Urine Nitrite Ur Leukocyte Esterase Urine RBC Urine WBC Ur Squamous Epith Cells Urine Bacteria Hyaline Casts COVID-19 (DEANGELO) COVID-19 Clin Com Influenza Type A (JOHN) Influenza Type B (JOHN) Influenza A & B Note S. pyogenes GrpA JOHN Imaging Radiologist's Impressions: CT ABD PELVIs 1. Sigmoid colon pericolonic inflammation with adjacent pneumoperitoneum; sigmoid diverticulitis with micro perforation. Clinical correlation suggested. 2. Hepatic steatosis. 3. Cardiomegaly. 4. [id number] calcified atherosclerotic disease of the abdominal aorta. 5. Prior cholecystectomy. CXR IMPRESSION: 1. CHF. 2. Right upper lobe ground-glass opacity, possibly representing pneumonia. Short-term follow-up is suggested. 3. 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 Patient has had no nausea or vomiting. Patient was complaining of sore throat but no fever. Patient currently interactive with son, considered coherent and is aware that she is being admitted to the hospital for microperforation involving diverticuli/ colon via CT scan with evidence of PNA. Due to overall dementia, pt not able to make decsion fo self at this time. Diverticulitis of colon with perforation/ Pneumoperitoneum General surgery consulted and patient will be followed daily per Dr. Ramirez, patient deemed high risk for surgery Patient will remain full code status until oldest sibling arrives in the a.m., currently no active healthcare proxy in place - multiple siblings involved, not all agree with same plan Currently blood pressure, heart rate and oxygenation acceptable for med surge admission Continue antibiotics, Zosyn initiated: Noted leukocytosis with no fever and lactic acid normal. pt was febrile at time of ED arrival, 101 Morphine IV for pain O2 as needed NPO IV fluids running Pneumonia Continue Zosyn Duo nebs as needed Oxygen as needed CHF Patient has known CHF with cardiomegaly on chest x-ray Using Lasix sparingly noting hemodynamics Daily weight Measure I's and O's Pt remains on room air, O2 prn Dementia No one-to-one indicated Family plans to be with patient as much as possible There are no behavioral issues per family report DVT prophylaxis: Heparin subQ Med rec pending Full Code status: No current healthcare proxy in place, oldest sibling will be available in the a.m. to decide on MOLST Quality Stroke Does the patient have a stroke diagnosis?: No Reason for No Anti-thrombotic by Day Two: N/A - Med Ordered VTE Prior VTE?: No VTE Risk Level:: Medical - moderate - high VTE Device Contraindication: N/A - Device Ordered VTE Drug Contraindication: N/A - Med Ordered
[2025-05-03] MEDS: Lactated Ringers 1,000 ML 100 ML IVCONT (21:52)
[2025-05-04] VITALS (10 sets, daily range): BP systolic 118–133; BP diastolic 44–76; PULSE 62–88; RESP 14–21; TEMP 36–38.1; O2SAT 92–98
--- NOTE | 2025-05-04 03:43 | PM.EVENT ---
Event Note Date of Service: 05/04/25 Event Note: Nursing reporting temp 100.5. Ordered NM tylenol. IVF continue. Also, updated surgery and hospitalist attending. BC were drawn earlier, results pending. Pt continues on Zosyn. Time Spent With Patient Time: Total time managing care of this patient today ____ minutes.
--- NOTE | 2025-05-04 03:45 | PC.NURSE ---
pt sleeping but easily arousable, pt is only alert to self unable to answer any questions-which appears to be her basline, respirations even and unlabored, pt is warm and clammy to the touch, pt's abd is distended, left bowel sounds extremely hypoactive, right also hypoactive but not as the left, abd soft but tender to touch, pt's rectal temp 100.5 hospitalist notified bc pt is NPO-no meds and only Tylenol tabs ordered,
[2025-05-04] MEDS: Acetaminophen Supp 650 MG SUPP.RECT PR (04:39)
[2025-05-04 05:09] LABS: MANUAL DIFF FLAG NO
[2025-05-04 05:10] LABS: Hematocrit 32.2 % (37.0-47.0); Hemoglobin 10.8 g/dl (12.0-16.0); Imm Gran Abs Auto 0.04 X10*3/uL (0.00-0.03); Imm Gran Pct Auto 0.3 % (0.0-0.4); Lymphocytes Absolute Auto 1.2 X10*3/uL (1.2-4.9); Mean Corpuscular HGB Conc 33.5 g/dl (31.0-35.0); Mean Corpuscular Hemoglobin 31.7 pg (27.0-33.0); Mean Corpuscular Volume 94.4 fL (80.0-98.0); NRBC Abs Auto 0.000 X10*3/uL (0.0-0.012); NRBC Pct Auto 0.0 /100WBC (0.0-0.2); Platelet Count 151 X10*3/uL (160-400); Red Blood Count 3.41 X10*6/uL (4.20-5.50); White Blood Count 12.8 X10*3/uL (4.8-10.8)
[2025-05-04 05:23] LABS: Alanine Aminotransferase 9 U/L (0-31); Albumin Level 3.4 g/dL (3.5-5.0); Alkaline Phosphatase 47 U/L (39-117); Anion Gap 12 (12-20); Aspartate Amino Transferase 23 U/L (5-31); Blood Urea Nitrogen 16 mg/dL (9-16); Calcium 8.4 mg/dL (8.4-10.2); Carbon Dioxide 26 mmol/L (22-29); Chloride 105 mmol/L (96-108); Creatinine Clr Calc Pharmacy 32.5; Estimated Glomerular Filt Rate 54; Potassium 4.5 mmol/L (3.3-5.1); Sodium 138 mmol/L (135-145); Total Protein 6.3 g/dL (6.5-8.0)
--- NOTE | 2025-05-04 07:31 | P.PNGS_ITS ---
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 Doing well overall, abdominal pain has improved, now only minimal. denies BM. Denies nausea, vomiting. Son endorses mild fever overnight. They plan to talk as a family regarding resus status. Still would like to proceed without surgical intervention <Damon Hylton PA-C - Last Filed: 05/04/25 10:31> Physical Exam 2 Vital Signs: Vital Signs: Last Vital Signs Temp 97.4 F 05/04/25 06:00 Pulse 62 05/04/25 06:00 Resp 18 05/04/25 06:00 BP 129/59 L 05/04/25 06:00 Pulse Ox 92 05/04/25 06:00 O2 Del Method Room Air 05/04/25 06:00 BMI result Body Mass Index 24.4 <Damon Hylton PA-C - Last Filed: 05/04/25 10:31> Const: General: comfortable and no acute distress <Damon Hylton PA-C - Last Filed: 05/04/25 10:31> Orientation/consciousness: patient oriented x3 <Damon Hylton PA-C - Last Filed: 05/04/25 10:31> GI: Inspection: No distended <Damon Hylton PA-C - Last Filed: 05/04/25 10:31> Palpation (GI): Soft to palpation and Tenderness to palpation present (GI) (mildly tender in left side) <Damon Hylton PA-C - Last Filed: 05/04/25 10:31> Neuro: General: patient oriented x3 <JENNIFER Keen Last Filed: 05/04/25 10:31> Objective Data Active Medications Acetaminophen (Acetaminophen 325 Mg Tablet) 650 mg PO Q6H PRN PRN Reason: Pain, Mild 1-3,fever,headache Acetaminophen (Acetaminophen Supp 650 Mg Supp.Rect) 650 mg [place] Q6H PRN PRN Reason: Fever >100.4 Last Admin: 05/04/25 04:39 Dose: 650 mg Documented By: GUANAKO Albuterol/Ipratropium (Albuterol/Iprat 2.5/0.5mg 3 Ml Ampul.Neb) 3 ml INHALE Q4H PRN PRN Reason: Shortness of Breath/Wheezing Calcium Carbonate (Calcium Carbonate 750 Mg Tab.Chew) 750 mg PO Q4H PRN PRN Reason: Heartburn Heparin Sodium (Porcine) (Heparin Sodium,Porcine 5,000 Unit/Ml Vial) 5,000 unit SUBCUT Q12H [facility] Last Admin: 05/03/25 21:58 Dose: 5,000 unit Documented By: EUGENE Lactated Ringer's (Lr) 1,000 mls @ 100 mls/hr IVCONT .Q10H [facility] Last Admin: 05/04/25 06:20 Dose: Not Given Documented By: JUANY Non-Admin Reason: IV Running Piperacillin Sod/Tazobactam (Sod 3.375 gm/ Sodium Chloride) 50 mls @ 100 mls/hr IV Q6H [facility] Last Infusion: 05/04/25 04:05 Dose: Infused Documented By: GUANAKO Magnesium Hydroxide (Milk Of Magnesia 30 Ml Oral.Susp) 30 ml PO DAILY PRN PRN Reason: Constipation Melatonin (Melatonin 3 Mg Tablet) 6 mg PO BEDTIME PRN PRN Reason: Insomnia Morphine Sulfate (Morphine Sulfate 2 Mg/Ml Cartridge) 2 mg IVPUSH Q4H PRN; Protocol PRN Reason: Pain, Severe (Pain Scale 7-10) Ondansetron HCl (Ondansetron Hcl 4 Mg/2 Ml Vial) 4 mg IVPUSH Q8H PRN PRN Reason: Nausea and Vomiting Sodium Chloride (0.9 % Sodium Chloride Flush 3 Ml Syringe) 3 ml IVFLUSH QSHIFT [facility] Last Admin: 05/04/25 00:56 Dose: Not Given Documented By: GAEL Non-Admin Reason: IV Running <Damon Hylton PA-C - Last Filed: 05/04/25 10:31> Labs CBC & Chem 7: 05/04/25 05:02 05/04/25 05:02 <Damon Hylton PA-C - Last Filed: 05/04/25 10:31> Labs: Laboratory Results - last 24 hr 05/03/25 05/03/25 05/03/25 12:23 13:39 15:37 MCV 93.6 MCH 31.8 MCHC 33.9 RDW 12.8 Plt Count 162 MPV 9.9 Immature Gran % (Auto) 0.3 Neut % (Auto) 86.5 H Lymph % (Auto) 9.1 L [place] % (Auto) 4.0 Eos % (Auto) 0.0 Baso % (Auto) 0.1 Lymph # (Auto) 1.2 [place] # (Auto) 0.5 Eos # (Auto) 0.0 Baso # (Auto) 0.0 Abs Immat Gran (auto) 0.04 H Absolute Neuts (auto) 11.5 H Absolute Nucleated RBC 0.000 Nucleated RBC % (auto) 0.0 Anion Gap 13 Estim Creat Clear Calc 30.0 Estimated GFR 49 Random Glucose 126 H Lactic Acid Calcium 8.7 Magnesium 2.0 Total Bilirubin 1.4 H AST 28 ALT 14 Alkaline Phosphatase 53 Troponin I High Sens 19.2 H Total Protein 7.2 Albumin 4.0 Lipase 11 Urine Color Yellow Urine Appearance Clear Urine pH >= 9.0 Ur Specific [place] 1.025 Urine Protein 30 (1+) H Urine Glucose (UA) Negative Urine Ketones Negative Urine Blood Negative Urine Nitrite Negative Ur Leukocyte Esterase Trace H Urine RBC 0-2 Urine WBC 0-5 Ur Squamous Epith Cells 3-5 Urine Bacteria None Seen Hyaline Casts 0-2 COVID-19 (DEANGELO) Negative COVID-19 Clin Com See Note Influenza Type A (JOHN) Negative Influenza Type B (JOHN) Negative Influenza A & B Note See Note S. pyogenes GrpA JOHN Negative 05/03/25 05/03/25 05/04/25 17:16 17:45 05:02 MCV 94.4 MCH 31.7 MCHC 33.5 RDW 12.8 Plt Count 151 L MPV 10.0 Immature Gran % (Auto) 0.3 Neut % (Auto) 85.7 H Lymph % (Auto) 9.4 L [place] % (Auto) 4.1 Eos % (Auto) 0.3 Baso % (Auto) 0.2 Lymph # (Auto) 1.2 [place] # (Auto) 0.5 Eos # (Auto) 0.0 Baso # (Auto) 0.0 Abs Immat Gran (auto) 0.04 H Absolute Neuts (auto) 11.0 H Absolute Nucleated RBC 0.000 Nucleated RBC % (auto) 0.0 Anion Gap 12 Estim Creat Clear Calc 32.5 Estimated GFR 54 Random Glucose 99 Lactic Acid 0.9 0.9 Calcium 8.4 Magnesium Total Bilirubin 1.5 H AST 23 ALT 9 Alkaline Phosphatase 47 Troponin I High Sens 25.6 H Total Protein 6.3 L Albumin 3.4 L Lipase Urine Color Urine Appearance Urine pH Ur Specific [place] Urine Protein Urine Glucose (UA) Urine Ketones Urine Blood Urine Nitrite Ur Leukocyte Esterase Urine RBC Urine WBC Ur Squamous Epith Cells Urine Bacteria Hyaline Casts COVID-19 (DEANGELO) COVID-19 Clin Com Influenza Type A (JOHN) Influenza Type B (JOHN) Influenza A & B Note S. pyogenes GrpA JOHN <Damon Hylton PA-C - Last Filed: 05/04/25 10:31> Procedures Date of Service Date of Service: 05/04/25 <Damon Hylton PA-C - Last Filed: 05/04/25 10:31> 05/04/25 <Fahad Ramirez MD - Last Filed: 05/04/25 08:10> Progress Note: A&P Assessment and plan (1) Diverticulitis of colon with perforation: Status: Acute <Damon Hylton PA-C - Last Filed: 05/04/25 10:31> Assessment and Plan: No further events overnight although she has had some low-grade fever. According to son, she seems to have less pain and appears to be more comfortable Abdomen soft, with some tenderness The family have decided to do nonoperative treatment Continue IV antibiotic Bowel rest will continue to follow Seen and examined independently <Fahad Ramirez MD - Last Filed: 05/04/25 08:10> Assessment and Plan: 84 year year old admitted for acute diverticulitis with micro perforation. son at bedside, feeling improved today. pain is minimal. She did have a mild fever overnight. On exam, she is mildly tender on the right side. non distended. Family is planning to meet to discuss their goals of care. Currently they do not want to proceed with any surgical intervention. continue conservative management with IV abx and bowel rest. <Damon Hylton PA-C - Last Filed: 05/04/25 10:31> Time Spent With Patient Time: Total time managing care of this patient today ____ minutes. <Damon Hylton PA-C - Last Filed: 05/04/25 10:31> Quality Stroke Does the patient have a stroke diagnosis?: No <Damon Hylton PA-C - Last Filed: 05/04/25 10:31> Reason for No Anti-thrombotic by Day Two: N/A - Med Ordered <Damon Hylton PA-C - Last Filed: 05/04/25 10:31> VTE Prior VTE?: No <Damon Hylton PA-C - Last Filed: 05/04/25 10:31> VTE Risk Level:: Medical - moderate - high <Damon Hylton PA-C - Last Filed: 05/04/25 10:31> VTE Device Contraindication: N/A - Device Ordered <Damon Hylton PA-C - Last Filed: 05/04/25 10:31> VTE Drug Contraindication: N/A - Med Ordered <Damon Hylton PA-C - Last Filed: 05/04/25 10:31>
--- NOTE | 2025-05-04 09:29 | HO.PM.IMPN ---
Subjective Subjective Date of Service: 05/04/25 Interval History: f/u on perforated diverticulitis with adenoma peritoneum Reporting layer of pain. No septic picture Physical Exam Vital Signs: Vital Signs: Last Vital Signs Temp 96.8 F 05/04/25 07:48 Pulse 66 05/04/25 07:48 Resp 14 05/04/25 07:48 BP 128/68 05/04/25 07:48 Pulse Ox 95 05/04/25 07:48 O2 Del Method Room Air 05/04/25 07:48 BMI result Body Mass Index 24.4 Const: Other: General: AO X 3, no acute distress Resp: CTA bilateral CVS: S1,S2,RRR GI: +BS, NT, no distention--no peritoneal sign Skin: No rash Neuro: motor grossly intact Psych: appropriate affect Objective Data Active Medications Acetaminophen (Acetaminophen 325 Mg Tablet) 650 mg PO Q6H PRN PRN Reason: Pain, Mild 1-3,fever,headache Acetaminophen (Acetaminophen Supp 650 Mg Supp.Rect) 650 mg [place] Q6H PRN PRN Reason: Fever >100.4 Last Admin: 05/04/25 04:39 Dose: 650 mg Documented By: GUANAKO Albuterol/Ipratropium (Albuterol/Iprat 2.5/0.5mg 3 Ml Ampul.Neb) 3 ml INHALE Q4H PRN PRN Reason: Shortness of Breath/Wheezing Calcium Carbonate (Calcium Carbonate 750 Mg Tab.Chew) 750 mg PO Q4H PRN PRN Reason: Heartburn Heparin Sodium (Porcine) (Heparin Sodium,Porcine 5,000 Unit/Ml Vial) 5,000 unit SUBCUT Q12H [facility] Last Admin: 05/03/25 21:58 Dose: 5,000 unit Documented By: EUGENE Lactated Ringer's (Lr) 1,000 mls @ 100 mls/hr IVCONT .Q10H [facility] Last Admin: 05/04/25 06:20 Dose: Not Given Documented By: JUANY Non-Admin Reason: IV Running Piperacillin Sod/Tazobactam (Sod 3.375 gm/ Sodium Chloride) 50 mls @ 100 mls/hr IV Q6H [facility] Last Infusion: 05/04/25 04:05 Dose: Infused Documented By: GUANAKO Magnesium Hydroxide (Milk Of Magnesia 30 Ml Oral.Susp) 30 ml PO DAILY PRN PRN Reason: Constipation Melatonin (Melatonin 3 Mg Tablet) 6 mg PO BEDTIME PRN PRN Reason: Insomnia Morphine Sulfate (Morphine Sulfate 2 Mg/Ml Cartridge) 2 mg IVPUSH Q4H PRN; Protocol PRN Reason: Pain, Severe (Pain Scale 7-10) Ondansetron HCl (Ondansetron Hcl 4 Mg/2 Ml Vial) 4 mg IVPUSH Q8H PRN PRN Reason: Nausea and Vomiting Sodium Chloride (0.9 % Sodium Chloride Flush 3 Ml Syringe) 3 ml IVFLUSH QSHIFT [facility] Last Admin: 05/04/25 08:59 Dose: Not Given Documented By: CHRISTIAN Non-Admin Reason: IV Running Labs 05/04/25 05:02 05/04/25 05:02 Labs: Laboratory Results - last 24 hr 05/03/25 05/03/25 05/03/25 12:23 13:39 15:37 MCV 93.6 MCH 31.8 MCHC 33.9 RDW 12.8 Plt Count 162 MPV 9.9 Immature Gran % (Auto) 0.3 Neut % (Auto) 86.5 H Lymph % (Auto) 9.1 L [place] % (Auto) 4.0 Eos % (Auto) 0.0 Baso % (Auto) 0.1 Lymph # (Auto) 1.2 [place] # (Auto) 0.5 Eos # (Auto) 0.0 Baso # (Auto) 0.0 Abs Immat Gran (auto) 0.04 H Absolute Neuts (auto) 11.5 H Absolute Nucleated RBC 0.000 Nucleated RBC % (auto) 0.0 Anion Gap 13 Estim Creat Clear Calc 30.0 Estimated GFR 49 Random Glucose 126 H Lactic Acid Calcium 8.7 Magnesium 2.0 Total Bilirubin 1.4 H AST 28 ALT 14 Alkaline Phosphatase 53 Troponin I High Sens 19.2 H Total Protein 7.2 Albumin 4.0 Lipase 11 Urine Color Yellow Urine Appearance Clear Urine pH >= 9.0 Ur Specific [place] 1.025 Urine Protein 30 (1+) H Urine Glucose (UA) Negative Urine Ketones Negative Urine Blood Negative Urine Nitrite Negative Ur Leukocyte Esterase Trace H Urine RBC 0-2 Urine WBC 0-5 Ur Squamous Epith Cells 3-5 Urine Bacteria None Seen Hyaline Casts 0-2 COVID-19 (DEANGELO) Negative COVID-19 Clin Com See Note Influenza Type A ([facility]) Negative Influenza Type B (JOHN) Negative Influenza A & B Note See Note S. pyogenes GrpA JOHN Negative 05/03/25 05/03/25 05/04/25 17:16 17:45 05:02 MCV 94.4 MCH 31.7 MCHC 33.5 RDW 12.8 Plt Count 151 L MPV 10.0 Immature Gran % (Auto) 0.3 Neut % (Auto) 85.7 H Lymph % (Auto) 9.4 L [place] % (Auto) 4.1 Eos % (Auto) 0.3 Baso % (Auto) 0.2 Lymph # (Auto) 1.2 [place] # (Auto) 0.5 Eos # (Auto) 0.0 Baso # (Auto) 0.0 Abs Immat Gran (auto) 0.04 H Absolute Neuts (auto) 11.0 H Absolute Nucleated RBC 0.000 Nucleated RBC % (auto) 0.0 Anion Gap 12 Estim Creat Clear Calc 32.5 Estimated GFR 54 Random Glucose 99 Lactic Acid 0.9 0.9 Calcium 8.4 Magnesium Total Bilirubin 1.5 H AST 23 ALT 9 Alkaline Phosphatase 47 Troponin I High Sens 25.6 H Total Protein 6.3 L Albumin 3.4 L Lipase Urine Color Urine Appearance Urine pH Ur Specific [place] Urine Protein Urine Glucose (UA) Urine Ketones Urine Blood Urine Nitrite Ur Leukocyte Esterase Urine RBC Urine WBC Ur Squamous Epith Cells Urine Bacteria Hyaline Casts COVID-19 (DEANGELO) COVID-19 Clin Com Influenza Type A (JOHN) Influenza Type B (JOHN) Influenza A & B Note S. 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 Ramirez and offered surgery but thus far decline in favor of IV Abx, Clinically looks better today, no fever, WB trending down and exam encouraging. Continue IV Zosyn, follow culture. Surgery following and if deteliorate, will discuss surgery again. Keep NPO, IVF, and morphine for pain . Right upper lobe ground-glass opacity, possibly representing pneumonia. Continue Zosyn Oxygen as needed Chronic HFrEF, compensated. Monitor while on IVF Dementia, no behavior issues DVT prophylaxis: Heparin subQ Med rec pending Full Code status: Full code Quality Stroke Does the patient have a stroke diagnosis?: No Reason for No Anti-thrombotic by Day Two: N/A - Med Ordered VTE Prior VTE?: No VTE Risk Level:: Medical - moderate - high VTE Device Contraindication: N/A - Device Ordered VTE Drug Contraindication: N/A - Med Ordered
[2025-05-04] MEDS: Lactated Ringers 1,000 ML 100 ML IVCONT ×3 (10:17→21:10)
--- NOTE | 2025-05-04 11:56 | PHA.MEDREC ---
Addendum entered by Keaton Pineda PharmD 05/04/25 12:39: reviewed Original Note: Pharmacy Consult ? Medication Reconciliation Pharmacy has completed the medication reconciliation. Patient and son are poor historians. Son said he will bring in a list of patient medications later today. Utilized claims and list from [facility] pharmacy to confirm med list. Will update with any changes when/If son brings in a list.
--- NOTE | 2025-05-04 14:56 | PM.EVENT ---
Event Note Date of Service: 05/04/25 Event Note: Seen on afternoon rounds Seemed to have some abdominal pain However, she has remained stable hemodynamically Abdomen is soft the with some tenderness in the lower abdomen, no rebound She is sitting on the chair and currently appears comfortable Continue IV antibiotics bowel rest We will continue to follow up Time Spent With Patient Time: Total time managing care of this patient today ____ minutes.
[2025-05-04] MEDS: 0.9 % Sodium Chloride Flush 3 ML SYRINGE IVFLUSH (16:09)
--- NOTE | 2025-05-04 16:13 | MHC.CM.PN ---
CM assessment completed w/ son/HCP Neil @ bedside. Patient w/ dx dementia. Patient lives in an apartment. Family alternates staying with patient/assisting w/ all care, but it is usually Neil. She is approved for 19 hrs [employer] through [facility]. Neil was previously filling those paid hours, but now is not being paid and will find new [employer]. Has a cane and walker at home, but frequently forgets to use them. PCP @ [facility] HCP on file and verified. DP: Goal is return home w/ family support. Son to transport. CM will continue to follow.
[2025-05-05] VITALS (7 sets, daily range): BP systolic 129–158; BP diastolic 58–74; PULSE 55–72; RESP 14–20; TEMP 36–36.7; O2SAT 92–96
--- NOTE | 2025-05-05 07:38 | P.PNGS_ITS ---
Subjective Subjective Date of Service: 05/05/25 Interval history: Says her abdominal pain is better No events overnight Reported vomiting Physical Exam 2 Vital Signs: Vital Signs: Last Vital Signs Temp 97.5 F 05/05/25 03:08 Pulse 72 05/05/25 03:08 Resp 14 05/05/25 03:08 BP 132/74 05/05/25 03:08 Pulse Ox 93 05/05/25 03:08 O2 Del Method Room Air 05/05/25 03:08 BMI result Body Mass Index 24.4 Const: General: comfortable and no acute distress Resp: Effort & Inspection: normal respiratory effort Cardio: Rate: regular rate GI: Palpation (GI): Soft to palpation, not firm and Tenderness to palpation present (GI) (Mild tenderness on lower abdomen) Objective Data Active Medications Acetaminophen (Acetaminophen 325 Mg Tablet) 650 mg PO Q6H PRN PRN Reason: Pain, Mild 1-3,fever,headache Acetaminophen (Acetaminophen Supp 650 Mg Supp.Rect) 650 mg [place] Q6H PRN PRN Reason: Fever >100.4 Last Admin: 05/04/25 04:39 Dose: 650 mg Documented By: GUANAKO Calcium Carbonate (Calcium Carbonate 750 Mg Tab.Chew) 750 mg PO Q4H PRN PRN Reason: Heartburn Heparin Sodium (Porcine) (Heparin Sodium,Porcine 5,000 Unit/Ml Vial) 5,000 unit SUBCUT Q12H [facility] Last Admin: 05/04/25 20:01 Dose: 5,000 unit Documented By: RHIANNON Lactated Ringer's (Lr) 1,000 mls @ 100 mls/hr IVCONT .Q10H [facility] Last Infusion: 05/05/25 03:45 Dose: 100 mls/hr Documented By: RHIANNON Piperacillin Sod/Tazobactam (Sod 3.375 gm/ Sodium Chloride) 50 mls @ 100 mls/hr IV Q6H [facility] Last Infusion: 05/05/25 03:45 Dose: Infused Documented By: RHIANNON Magnesium Hydroxide (Milk Of Magnesia 30 Ml Oral.Susp) 30 ml PO DAILY PRN PRN Reason: Constipation Melatonin (Melatonin 3 Mg Tablet) 6 mg PO BEDTIME PRN PRN Reason: Insomnia Morphine Sulfate (Morphine Sulfate 2 Mg/Ml Cartridge) 2 mg IVPUSH Q4H PRN; Protocol PRN Reason: Pain, Severe (Pain Scale 7-10) Last Admin: 05/04/25 20:21 Dose: 2 mg Documented By: RHIANNON Ondansetron HCl (Ondansetron Hcl 4 Mg/2 Ml Vial) 4 mg IVPUSH Q8H PRN PRN Reason: Nausea and Vomiting Sodium Chloride (0.9 % Sodium Chloride Flush 3 Ml Syringe) 3 ml IVFLUSH QSHIFT [facility] Last Admin: 05/04/25 23:29 Dose: Not Given Documented By: RHIANNON Non-Admin Reason: IV Running Labs 05/04/25 05:02 05/04/25 05:02 Microbiology Microbiology Results: Microbiology 05/03/25 17:45 Blood Culture - Preliminary Blood - Venous No growth after 24 hours. 05/03/25 17:45 Blood Culture - Preliminary Blood - Venous No growth after 24 hours. Procedures Date of Service Date of Service: 05/05/25 Progress Note: A&P Assessment and plan (1) Diverticulitis of colon with perforation: Status: Acute Assessment and Plan: Clinically improving Abdomen remained soft and benign No fever Hemodynamically stable No surgical intervention as per family Continue IV antibiotics We will follow up Try clear liquids later today Time Spent With Patient Time: Total time managing care of this patient today ____ minutes. Quality Stroke Does the patient have a stroke diagnosis?: No Reason for No Anti-thrombotic by Day Two: N/A - Med Ordered VTE Prior VTE?: No VTE Risk Level:: Medical - moderate - high VTE Device Contraindication: N/A - Device Ordered VTE Drug Contraindication: N/A - Med Ordered
[2025-05-05] MEDS: Lactated Ringers 1,000 ML 100 ML IVCONT (09:05)
--- NOTE | 2025-05-05 16:15 | P.PNIM_ITS ---
Subjective Subjective Date of Service: 05/05/25 Interval History: Patient endorses some abdominal pain, however significantly improved as compared to yesterday. She has some appetite, however remains associated. She remains on bowel rest for the time being Discussed risks associated with surgical intervention with family members by bedside. Review of Systems Review of Systems: Yes all other systems are reviewed and are negative Physical Exam 2 Exam: Exam: General: A&O x3, oriented to time place person and situation, comfortable, no pain Cardiac: S1, S2 auscultated with no S3/4, no MRG. Well perfused. Respiratory: Normal breath sounds auscultated throughout all lung zones, without wheezing, rales. Normal rate. GI/ : No abdominal pain on palpation, no masses or distentions. No rebound tenderness, no guarding. Normal bowel sounds. MSK: Normal ambulation without pain at bony prominences or musculature Neurological: Normal neurological examination on overview, without obvious CN II-XII abnormalities. Vital Signs: Vital Signs: Last Vital Signs Temp 97.9 F 05/05/25 15:52 Pulse 55 05/05/25 15:52 Resp 18 05/05/25 15:52 BP 135/61 05/05/25 15:52 Pulse Ox 93 05/05/25 15:52 O2 Del Method Room Air 05/05/25 15:52 BMI result Body Mass Index 24.4 Objective Data Active Medications Acetaminophen (Acetaminophen 325 Mg Tablet) 650 mg PO Q6H PRN PRN Reason: Pain, Mild 1-3,fever,headache Last Admin: 05/05/25 10:17 Dose: 650 mg Documented By: VERITO Acetaminophen (Acetaminophen Supp 650 Mg Supp.Rect) 650 mg [place] Q6H PRN PRN Reason: Fever >100.4 Last Admin: 05/04/25 04:39 Dose: 650 mg Documented By: GUANAKO Calcium Carbonate (Calcium Carbonate 750 Mg Tab.Chew) 750 mg PO Q4H PRN PRN Reason: Heartburn Heparin Sodium (Porcine) (Heparin Sodium,Porcine 5,000 Unit/Ml Vial) 5,000 unit SUBCUT Q12H [facility] Last Admin: 05/05/25 09:05 Dose: 5,000 unit Documented By: CHRISTOPHER Lactated Ringer's (Lr) 1,000 mls @ 100 mls/hr IVCONT .Q10H [facility] Last Admin: 05/05/25 09:05 Dose: 100 mls/hr Documented By: CHRISTOPHER Piperacillin Sod/Tazobactam (Sod 3.375 gm/ Sodium Chloride) 50 mls @ 100 mls/hr IV Q6H [facility] Last Infusion: 05/05/25 15:26 Dose: Infused Documented By: CHRISTOPHER Magnesium Hydroxide (Milk Of Magnesia 30 Ml Oral.Susp) 30 ml PO DAILY PRN PRN Reason: Constipation Melatonin (Melatonin 3 Mg Tablet) 6 mg PO BEDTIME PRN PRN Reason: Insomnia Morphine Sulfate (Morphine Sulfate 2 Mg/Ml Cartridge) 2 mg IVPUSH Q4H PRN; Protocol PRN Reason: Pain, Severe (Pain Scale 7-10) Last Admin: 05/04/25 20:21 Dose: 2 mg Documented By: RHIANNON Ondansetron HCl (Ondansetron Hcl 4 Mg/2 Ml Vial) 4 mg IVPUSH Q8H PRN PRN Reason: Nausea and Vomiting Sodium Chloride (0.9 % Sodium Chloride Flush 3 Ml Syringe) 3 ml IVFLUSH QSHIFT [facility] Last Admin: 05/05/25 15:44 Dose: Not Given Documented By: CHRISTOPHER Non-Admin Reason: IV Running Labs 05/04/25 05:02 05/04/25 05:02 Microbiology Microbiology Results: Microbiology 05/03/25 17:45 Blood Culture - Preliminary Blood - Venous No growth after 24 hours. 05/03/25 17:45 Blood Culture - Preliminary Blood - Venous No growth after 24 hours. Assessment and Plan (1) CHF (congestive heart failure): Status: Acute (2) Cardiomyopathy: Status: Acute (3) Ascending aorta dilation: Status: Acute (4) GERD (gastroesophageal reflux disease): Status: Acute (5) Pneumoperitoneum: Status: Acute (6) Chronic kidney disease, stage 2 (mild): Status: Acute (7) Sepsis: Status: Acute (8) Alzheimer's dementia without behavioral disturbance: Status: Acute Plan 84-year-old female, Slovenian-speaking only, with a past medical history of CHFrEF, insomnia, GERD, dementia here with abdominal pain and found to have perforated acute diverticultis and sepsis, has thus far declined surgery. Diverticulitis of colon with perforation/ Pneumoperitoneum Sepsis - resolved Seen by Dr. Ramirez and offered surgery but thus far decline in favor of IV Abx, Clinically looks better today, no fever, WB trending down and exam encouraging. Continue IV Zosyn, follow culture. Surgery following and if deteliorate, will discuss surgery again. Keep NPO, IVF, and morphine for pain . Possible aspiration pneumonia Right upper lobe ground-glass opacity Continue Zosyn Oxygen as needed Chronic HFrEF, compensated. No evidence of acute exacerbation Monitor while on IVF Dementia without behaviors No evidence of delirium As of encephalopathy in the setting of sepsis QUALITY METRICS - VTE: Heparin subcutaneous t.i.d. a 1000 - CODE STATUS: Full code - DIET: Bowel rest NPO Total time managing care of this patient today: 35 minutes. Quality Stroke Does the patient have a stroke diagnosis?: No Reason for No Anti-thrombotic by Day Two: N/A - Med Ordered VTE Prior VTE?: No VTE Risk Level:: Medical - moderate - high VTE Device Contraindication: N/A - Device Ordered VTE Drug Contraindication: N/A - Med Ordered
[2025-05-05] MEDS: 0.9 % Sodium Chloride Flush 3 ML SYRINGE IVFLUSH (20:56)
[2025-05-06] MEDS: Lactated Ringers 1,000 ML 100 ML IVCONT ×3 (00:08→17:57)
[2025-05-06 03:43] VITALS: BP 150/65; PULSE 63; RESP 18; TEMP 36.1; O2SAT 93
[2025-05-06 07:32] VITALS: BP 159/69; PULSE 64; RESP 14; TEMP 36.5; O2SAT 93
--- NOTE | 2025-05-06 08:59 | P.PNGS_ITS ---
Subjective Subjective Date of Service: 05/06/25 <Damon Hylton PA-C - Last Filed: 05/06/25 09:06> 05/06/25 <Fahad Ramirez MD - Last Filed: 05/06/25 15:52> Interval history: Son at bedside. Patient doing okay, having some generalized increased pain throughout the abdomen today, seems to be positional, when laying flat on her back has increased pain, when side-lying she feels improved. Patient's family still requesting no surgical intervention <Damon Hylton PA-C - Last Filed: 05/06/25 09:06> Physical Exam 2 Vital Signs: Vital Signs: Last Vital Signs Temp 97.7 F 05/06/25 07:32 Pulse 64 05/06/25 07:32 Resp 14 05/06/25 07:32 BP 159/69 H 05/06/25 07:32 Pulse Ox 93 05/06/25 07:32 O2 Del Method Room Air 05/06/25 07:32 BMI result Body Mass Index 24.4 <Damon Hylton PA-C - Last Filed: 05/06/25 09:06> Const: General: comfortable, no acute distress, alert and awake <Damon Hylton PA-C - Last Filed: 05/06/25 09:06> Resp: Effort & Inspection: normal respiratory effort and able to speak in complete sentences <Damon Hylton PA-C - Last Filed: 05/06/25 09:06> GI: Inspection: Yes distended (Mild) <Damon Hylton PA-C - Last Filed: 05/06/25 09:06> Palpation (GI): Soft to palpation, Tenderness to palpation present (GI) (Generalized tenderness throughout) and no guarding <Damon Hylton PA-C - Last Filed: 05/06/25 09:06> Objective Data Active Medications Acetaminophen (Acetaminophen 325 Mg Tablet) 650 mg PO Q6H PRN PRN Reason: Pain, Mild 1-3,fever,headache Last Admin: 05/06/25 07:55 Dose: 650 mg Documented By: JUANY Acetaminophen (Acetaminophen Supp 650 Mg Supp.Rect) 650 mg [place] Q6H PRN PRN Reason: Fever >100.4 Last Admin: 05/04/25 04:39 Dose: 650 mg Documented By: GUANAKO Calcium Carbonate (Calcium Carbonate 750 Mg Tab.Chew) 750 mg PO Q4H PRN PRN Reason: Heartburn Heparin Sodium (Porcine) (Heparin Sodium,Porcine 5,000 Unit/Ml Vial) 5,000 unit SUBCUT Q12H [facility] Last Admin: 05/06/25 07:41 Dose: 5,000 unit Documented By: JUANY Piperacillin Sod/Tazobactam (Sod 3.375 gm/ Sodium Chloride) 50 mls @ 100 mls/hr IV Q6H [facility] Last Infusion: 05/06/25 08:16 Dose: Infused Documented By: JUANY Lactated Ringer's (Lr) 1,000 mls @ 100 mls/hr IVCONT .Q10H [facility] Last Admin: 05/06/25 08:26 Dose: 100 mls/hr Documented By: JUANY Magnesium Hydroxide (Milk Of Magnesia 30 Ml Oral.Susp) 30 ml PO DAILY PRN PRN Reason: Constipation Melatonin (Melatonin 3 Mg Tablet) 6 mg PO BEDTIME PRN PRN Reason: Insomnia Morphine Sulfate (Morphine Sulfate 2 Mg/Ml Cartridge) 2 mg IVPUSH Q4H PRN; Protocol PRN Reason: Pain, Severe (Pain Scale 7-10) Last Admin: 05/04/25 20:21 Dose: 2 mg Documented By: RHIANNON Ondansetron HCl (Ondansetron Hcl 4 Mg/2 Ml Vial) 4 mg IVPUSH Q8H PRN PRN Reason: Nausea and Vomiting Sodium Chloride (0.9 % Sodium Chloride Flush 3 Ml Syringe) 3 ml IVFLUSH QSHIFT [facility] Last Admin: 05/06/25 07:42 Dose: Not Given Documented By: JUANY Non-Admin Reason: IV Running <Damon Hylton PA-C - Last Filed: 05/06/25 09:06> Labs CBC & Chem 7: 05/04/25 05:02 05/04/25 05:02 <Damon Hylton PA-C - Last Filed: 05/06/25 09:06> Microbiology Microbiology Results: Microbiology 05/03/25 17:45 Blood Culture - Preliminary Blood - Venous No growth after 48 hours. 05/03/25 17:45 Blood Culture - Preliminary Blood - Venous No growth after 48 hours. <Damon Hylton PA-C - Last Filed: 05/06/25 09:06> Procedures Date of Service Date of Service: 05/06/25 <Damon Hylton PA-C - Last Filed: 05/06/25 09:06> 05/06/25 <Fahad Ramirez MD - Last Filed: 05/06/25 15:52> Progress Note: A&P Assessment and plan (1) Diverticulitis of colon with perforation: Status: Acute <Damon Hylton PA-C - Last Filed: 05/06/25 09:06> Assessment and Plan: Complains of some pain today Abdomen is soft and benign although with some diffuse tenderness Stable vital signs without any fevers Family at bedside - reiterated that they do not want surgical intervention at this time Continue antibiotics We will follow up Seen and examined independently <Fahad Ramirez MD - Last Filed: 05/06/25 15:52> Assessment and Plan: Female following for acute diverticulitis microperforation, largely unchanged. Still having some abdominal pain, throughout the abdomen. Family still requesting no surgical intervention, we will continue with IV antibiotics for now. Abdomen soft, mildly tender throughout, some very mild distention. Vitals remain stable although she is hypertensive. Continue IV antibiotics No surgical intervention at this time per family's request. We will continue to follow throughout admission <Damon Hylton PA-C - Last Filed: 05/06/25 09:06> Time Spent With Patient Time: Total time managing care of this patient today ____ minutes. <Damon Hylton PA-C - Last Filed: 05/06/25 09:06> Quality Stroke Does the patient have a stroke diagnosis?: No <Damon Hylton PA-C - Last Filed: 05/06/25 09:06> Reason for No Anti-thrombotic by Day Two: N/A - Med Ordered <Damon Hylton PA-C - Last Filed: 05/06/25 09:06> VTE Prior VTE?: No <Damon Hylton PA-C - Last Filed: 05/06/25 09:06> VTE Risk Level:: Medical - moderate - high <Damon Hylton PA-C - Last Filed: 05/06/25 09:06> VTE Device Contraindication: N/A - Device Ordered <Damon Hylton PA-C - Last Filed: 05/06/25 09:06> VTE Drug Contraindication: N/A - Med Ordered <Damon Hylton PA-C - Last Filed: 05/06/25 09:06>
--- NOTE | 2025-05-06 11:13 | MHC.CM.PN ---
Patient not medically cleared for dc at this time. CM will continue to follow.
[2025-05-06 11:35] VITALS: BP 133/73; PULSE 61; RESP 16; TEMP 36.7; O2SAT 96
--- NOTE | 2025-05-06 12:01 | MHC.CLN ---
CONSULT DIET ADVANCED TODAY TO CLEAR LIQUIDS. ADDING ENSURE CLEAR TID TO PROMOTE NUTRITIONAL INTAKE. SUPPLEMENT PROVIDES 720 KCALS, 24 G PROTEIN. MONITOR FOR DIET TOLERANCE AND PO INTAKE.
[2025-05-06 16:00] VITALS: BP 150/67; PULSE 60; RESP 18; TEMP 36.4; O2SAT 95
--- NOTE | 2025-05-06 17:29 | HO.PM.IMPN ---
Subjective Subjective Date of Service: 05/06/25 Interval History: Patient feels well today. Still complaining of epigastric discomfort and fullness, however significantly improved from yesterday. Mild appetite, and able to eat clear liquids. Review of Systems Review of Systems: Yes all other systems are reviewed and are negative Physical Exam Exam: Exam: General: A&O x3, oriented to time place person and situation, comfortable, no pain Cardiac: S1, S2 auscultated with no S3/4, no MRG. Well perfused. Respiratory: Normal breath sounds auscultated throughout all lung zones, without wheezing, rales. Normal rate. GI/ : No abdominal pain on palpation, no masses or distentions. Soft to touch MSK: Normal ambulation without pain at bony prominences or musculature Neurological: Normal neurological examination on overview, without obvious CN II-XII abnormalities. Vital Signs: Vital Signs: Last Vital Signs Temp 97.6 F 05/06/25 16:00 Pulse 60 05/06/25 16:00 Resp 18 05/06/25 16:00 BP 150/67 H 05/06/25 16:00 Pulse Ox 95 05/06/25 16:00 O2 Del Method Room Air 05/06/25 16:00 BMI result Body Mass Index 24.4 Objective Data Active Medications Acetaminophen (Acetaminophen 325 Mg Tablet) 650 mg PO Q6H PRN PRN Reason: Pain, Mild 1-3,fever,headache Last Admin: 05/06/25 17:20 Dose: 650 mg Documented By: CHRISTOPHER Acetaminophen (Acetaminophen Supp 650 Mg Supp.Rect) 650 mg [place] Q6H PRN PRN Reason: Fever >100.4 Last Admin: 05/04/25 04:39 Dose: 650 mg Documented By: GUANAKO Calcium Carbonate (Calcium Carbonate 750 Mg Tab.Chew) 750 mg PO Q4H PRN PRN Reason: Heartburn Heparin Sodium (Porcine) (Heparin Sodium,Porcine 5,000 Unit/Ml Vial) 5,000 unit SUBCUT Q12H [facility] Last Admin: 05/06/25 07:41 Dose: 5,000 unit Documented By: JUANY Piperacillin Sod/Tazobactam (Sod 3.375 gm/ Sodium Chloride) 50 mls @ 100 mls/hr IV Q6H [facility] Last Infusion: 05/06/25 14:42 Dose: Infused Documented By: JUANY Lactated Ringer's (Lr) 1,000 mls @ 100 mls/hr IVCONT .Q10H [facility] Last Admin: 05/06/25 08:26 Dose: 100 mls/hr Documented By: JUANY Magnesium Hydroxide (Milk Of Magnesia 30 Ml Oral.Susp) 30 ml PO DAILY PRN PRN Reason: Constipation Melatonin (Melatonin 3 Mg Tablet) 6 mg PO BEDTIME PRN PRN Reason: Insomnia Morphine Sulfate (Morphine Sulfate 2 Mg/Ml Cartridge) 2 mg IVPUSH Q4H PRN; Protocol PRN Reason: Pain, Severe (Pain Scale 7-10) Last Admin: 05/04/25 20:21 Dose: 2 mg Documented By: RHIANNON Ondansetron HCl (Ondansetron Hcl 4 Mg/2 Ml Vial) 4 mg IVPUSH Q8H PRN PRN Reason: Nausea and Vomiting Sodium Chloride (0.9 % Sodium Chloride Flush 3 Ml Syringe) 3 ml IVFLUSH QSHIFT [facility] Last Admin: 05/06/25 14:56 Dose: Not Given Documented By: CHRISTOPHER Non-Admin Reason: IV Running Labs 05/04/25 05:02 05/04/25 05:02 Microbiology Microbiology Results: Microbiology 05/03/25 17:45 Blood Culture - Preliminary Blood - Venous No growth after 48 hours. 05/03/25 17:45 Blood Culture - Preliminary Blood - Venous No growth after 48 hours. Assessment and Plan (1) Cardiomyopathy: Status: Acute (2) CHF (congestive heart failure): Status: Acute (3) Sepsis: Status: Acute (4) Alzheimer's dementia without behavioral disturbance: Status: Acute (5) Chronic interstitial lung disease: Status: Acute (6) Diverticulitis of colon with perforation: Status: Acute (7) Pneumoperitoneum: Status: Acute Plan 84-year-old female, Syriac-speaking only, with a past medical history of CHFrEF, insomnia, GERD, dementia here with abdominal pain and found to have perforated acute diverticultis and sepsis, has thus far declined surgery. Diverticulitis of colon with perforation/ Pneumoperitoneum Sepsis - resolved Seen by Dr. Ramirez and offered surgery but thus far decline in favor of IV Abx, Clinically looks better today, no fever, WB trending down and exam encouraging. Continue IV Zosyn, follow culture. Surgery following and if deteliorate, will discuss surgery again. Maintain IVF, and morphine for pain Advance diet to clear liquid today Monitor for passing gas Possible aspiration pneumonia Right upper lobe ground-glass opacity Continue Zosyn Oxygen as needed Chronic HFrEF, compensated. No evidence of acute exacerbation Monitor while on IVF Dementia without behaviors No evidence of delirium As of encephalopathy in the setting of sepsis QUALITY [employer] - VTE: Heparin subcutaneous t.i.d. a 1000 - CODE STATUS: Full code - DIET: Bowel rest NPO Total time managing care of this patient today: 35 minutes. Quality Stroke Does the patient have a stroke diagnosis?: No Reason for No Anti-thrombotic by Day Two: N/A - Med Ordered VTE Prior VTE?: No VTE Risk Level:: Medical - moderate - high VTE Device Contraindication: N/A - Device Ordered VTE Drug Contraindication: N/A - Med Ordered
[2025-05-06 19:43] VITALS: BP 178/78; PULSE 66; RESP 18; TEMP 36.3; O2SAT 96
[2025-05-06 23:28] VITALS: BP 154/72; PULSE 66; RESP 16; TEMP 36; O2SAT 96
[2025-05-07 03:13] VITALS: BP 162/74; PULSE 62; RESP 14; TEMP 36; O2SAT 98
[2025-05-07] MEDS: Lactated Ringers 1,000 ML 100 ML IVCONT ×3 (03:15→22:57)
--- NOTE | 2025-05-07 07:25 | PM.PNGS ---
Subjective Subjective Date of Service: 05/07/25 <Damon Hylton PA-C - Last Filed: 05/07/25 07:28> 05/07/25 <Fahad Ramirez MD - Last Filed: 05/07/25 08:18> Interval history: doing well today, pain is about the same. she is ambulating with assistance. denies fevers or chills. <Damon Hylton PA-C - Last Filed: 05/07/25 07:28> Physical Exam Vital Signs: Vital Signs: Last Vital Signs Temp 96.8 F 05/07/25 03:13 Pulse 62 05/07/25 03:13 Resp 14 05/07/25 03:13 BP 162/74 H 05/07/25 03:13 Pulse Ox 98 05/07/25 03:13 O2 Del Method Room Air 05/07/25 03:13 BMI result Body Mass Index 24.4 <Damon Hylton PA-C - Last Filed: 05/07/25 07:28> Const: General: comfortable and no acute distress <Damon Hylton PA-C - Last Filed: 05/07/25 07:28> GI: Inspection: No distended <Damon Hylton PA-C - Last Filed: 05/07/25 07:28> Palpation (GI): Soft to palpation and Tenderness to palpation present (GI) (mild generalized tendernesss) <Damon Hylton PA-C - Last Filed: 05/07/25 07:28> Objective Data Active Medications Acetaminophen (Acetaminophen 325 Mg Tablet) 650 mg PO Q6H PRN PRN Reason: Pain, Mild 1-3,fever,headache Last Admin: 05/06/25 17:20 Dose: 650 mg Documented By: CHRISTOPHER Acetaminophen (Acetaminophen Supp 650 Mg Supp.Rect) 650 mg [place] Q6H PRN PRN Reason: Fever >100.4 Last Admin: 05/04/25 04:39 Dose: 650 mg Documented By: GUANAKO Calcium Carbonate (Calcium Carbonate 750 Mg Tab.Chew) 750 mg PO Q4H PRN PRN Reason: Heartburn Heparin Sodium (Porcine) (Heparin Sodium,Porcine 5,000 Unit/Ml Vial) 5,000 unit SUBCUT Q12H [facility] Last Admin: 05/06/25 20:22 Dose: 5,000 unit Documented By: WILLIAM Piperacillin Sod/Tazobactam (Sod 3.375 gm/ Sodium Chloride) 50 mls @ 100 mls/hr IV Q6H [facility] Last Infusion: 05/07/25 03:56 Dose: Infused Documented By: WILLIAM Lactated Ringer's (Lr) 1,000 mls @ 100 mls/hr IVCONT .Q10H [facility] Last Infusion: 05/07/25 03:56 Dose: 100 mls/hr Documented By: WILLIAM Magnesium Hydroxide (Milk Of Magnesia 30 Ml Oral.Susp) 30 ml PO DAILY PRN PRN Reason: Constipation Melatonin (Melatonin 3 Mg Tablet) 6 mg PO BEDTIME PRN PRN Reason: Insomnia Morphine Sulfate (Morphine Sulfate 2 Mg/Ml Cartridge) 2 mg IVPUSH Q4H PRN; Protocol PRN Reason: Pain, Severe (Pain Scale 7-10) Last Admin: 05/04/25 20:21 Dose: 2 mg Documented By: RHIANNON Ondansetron HCl (Ondansetron Hcl 4 Mg/2 Ml Vial) 4 mg IVPUSH Q8H PRN PRN Reason: Nausea and Vomiting Sodium Chloride (0.9 % Sodium Chloride Flush 3 Ml Syringe) 3 ml IVFLUSH QSHIFT [facility] Last Admin: 05/07/25 00:10 Dose: Not Given Documented By: WILLIAM Non-Admin Reason: IV Running <Damon Hylton PA-C - Last Filed: 05/07/25 07:28> Labs CBC & Chem 7: 05/04/25 05:02 05/04/25 05:02 <Damon Hylton PA-C - Last Filed: 05/07/25 07:28> Procedures Date of Service Date of Service: 05/07/25 <Damon Hylton PA-C - Last Filed: 05/07/25 07:28> 05/07/25 <Fahad Ramirez MD - Last Filed: 05/07/25 08:18> Progress Note: A&P Assessment and plan (1) Diverticulitis of colon with perforation: Status: Acute <Damon Hylton PA-C - Last Filed: 05/07/25 07:28> Assessment and Plan: Says she feels better this morning Some pain but not as bad as yesterday Looks well overall Appears comfortable Abdomen is soft and benign No surgical intervention as per family Patient presents with significant perioperative risks Has been stable since admission Family updated Seen and examined independently <Fahad Ramirez MD - Last Filed: 05/07/25 08:18> Assessment and Plan: 84 year old female Female followed for acute diverticulitis microperforation, largely unchanged. pain is about the same as the past few days. Family still requesting no surgical intervention, we will continue with IV antibiotics for now. Abdomen soft, mildly tender throughout, itherwise benign Vitals remain stable although she is hypertensive. Continue IV antibiotics No surgical intervention at this time per family's request. We will continue to follow throughout admission <Damon Hylton PA-C - Last Filed: 05/07/25 07:28> Time Spent With Patient Time: Total time managing care of this patient today ____ minutes. <Damon Hylton PA-C - Last Filed: 05/07/25 07:28> Quality Stroke Does the patient have a stroke diagnosis?: No <Damon Hylton PA-C - Last Filed: 05/07/25 07:28> Reason for No Anti-thrombotic by Day Two: N/A - Med Ordered <Damon Hylton PA-C - Last Filed: 05/07/25 07:28> VTE Prior VTE?: No <Damon Hylton PA-C - Last Filed: 05/07/25 07:28> VTE Risk Level:: Medical - moderate - high <Damon Hylton PA-C - Last Filed: 05/07/25 07:28> VTE Device Contraindication: N/A - Device Ordered <Damon Hylton PA-C - Last Filed: 05/07/25 07:28> VTE Drug Contraindication: N/A - Med Ordered <Damon Hylton PA-C - Last Filed: 05/07/25 07:28>
[2025-05-07 08:00] VITALS: BP 143/74; PULSE 61; RESP 16; TEMP 36.7; O2SAT 96
[2025-05-07] MEDS: 0.9 % Sodium Chloride Flush 3 ML SYRINGE IVFLUSH ×2 (09:04→14:46)
[2025-05-07] MEDS: Lidocaine 4 % Patch ADH..PATCH 1 PATCH TRANSDERMA (09:04)
--- NOTE | 2025-05-07 11:50 | HO.PM.IMPN ---
Subjective Subjective Date of Service: 05/07/25 Interval History: Evaluation conducted with ear muff assembler by bedside Gradually improving symptomatically. No endorsement of abdominal pain. He is unsure if she is passing flatus, however she endorses she ?never had that problem before? Baseline dementia Review of Systems Review of Systems: Yes all other systems are reviewed and are negative Physical Exam Exam: Exam: General: A&O x3, oriented to time place person and situation, comfortable, no pain Cardiac: S1, S2 auscultated with no S3/4, no MRG. Well perfused. Respiratory: Normal breath sounds auscultated throughout all lung zones, without wheezing, rales. Normal rate. GI/ : No abdominal pain on palpation, no masses or distentions. Soft to touch MSK: Normal ambulation without pain at bony prominences or musculature Neurological: Normal neurological examination on overview, without obvious CN II-XII abnormalities. Vital Signs: Vital Signs: Last Vital Signs Temp 98.1 F 05/07/25 08:00 Pulse 61 05/07/25 08:00 Resp 16 05/07/25 08:00 BP 143/74 H 05/07/25 08:00 Pulse Ox 96 05/07/25 08:00 O2 Del Method Room Air 05/07/25 08:00 BMI result Body Mass Index 24.4 Objective Data Active Medications Acetaminophen (Acetaminophen 325 Mg Tablet) 650 mg PO Q6H PRN PRN Reason: Pain, Mild 1-3,fever,headache Last Admin: 05/07/25 09:47 Dose: 650 mg Documented By: ASH Acetaminophen (Acetaminophen Supp 650 Mg Supp.Rect) 650 mg [place] Q6H PRN PRN Reason: Fever >100.4 Last Admin: 05/04/25 04:39 Dose: 650 mg Documented By: GUANAKO Calcium Carbonate (Calcium Carbonate 750 Mg Tab.Chew) 750 mg PO Q4H PRN PRN Reason: Heartburn Heparin Sodium (Porcine) (Heparin Sodium,Porcine 5,000 Unit/Ml Vial) 5,000 unit SUBCUT Q12H [facility] Last Admin: 05/07/25 09:04 Dose: 5,000 unit Documented By: ASH Piperacillin Sod/Tazobactam (Sod 3.375 gm/ Sodium Chloride) 50 mls @ 100 mls/hr IV Q6H [facility] Last Infusion: 05/07/25 09:43 Dose: Infused Documented By: ASH Lactated Ringer's (Lr) 1,000 mls @ 100 mls/hr IVCONT .Q10H [facility] Last Infusion: 05/07/25 03:56 Dose: 100 mls/hr Documented By: WILLIAM Lidocaine (Lidocaine 4 % Patch Adh..Patch) 1 patch TRANSDERMA DAILY [facility]; Protocol Last Admin: 05/07/25 09:04 Dose: 1 patch Documented By: ASH Magnesium Hydroxide (Milk Of Magnesia 30 Ml Oral.Susp) 30 ml PO DAILY PRN PRN Reason: Constipation Melatonin (Melatonin 3 Mg Tablet) 6 mg PO BEDTIME PRN PRN Reason: Insomnia Morphine Sulfate (Morphine Sulfate 2 Mg/Ml Cartridge) 2 mg IVPUSH Q4H PRN; Protocol PRN Reason: Pain, Severe (Pain Scale 7-10) Last Admin: 05/04/25 20:21 Dose: 2 mg Documented By: RHIANNON Ondansetron HCl (Ondansetron Hcl 4 Mg/2 Ml Vial) 4 mg IVPUSH Q8H PRN PRN Reason: Nausea and Vomiting Sodium Chloride (0.9 % Sodium Chloride Flush 3 Ml Syringe) 3 ml IVFLUSH QSHIFT [facility] Last Admin: 05/07/25 09:04 Dose: 3 ml Documented By: ASH Labs 05/04/25 05:02 05/04/25 05:02 Assessment and Plan (1) CHF (congestive heart failure): Status: Acute (2) GERD (gastroesophageal reflux disease): Status: Acute (3) Chronic kidney disease, stage 2 (mild): Status: Acute (4) Alzheimer's dementia without behavioral disturbance: Status: Acute (5) Chronic interstitial lung disease: Status: Acute (6) Diverticulitis of colon with perforation: Status: Acute (7) Pneumoperitoneum: Status: Acute Plan 84-year-old female, Wolof-speaking only, with a past medical history of CHFrEF, insomnia, GERD, dementia here with abdominal pain and found to have perforated acute diverticultis and sepsis, has thus far declined surgery. Diverticulitis of colon with perforation/ Pneumoperitoneum Sepsis - resolved Seen by Dr. Ramirez and offered surgery but thus far decline in favor of IV Abx, Clinically looks better today, no fever, WB trending down and exam encouraging. Continue IV Zosyn, follow culture. Surgery following and if deteliorate, will discuss surgery again. Maintain IVF, and morphine for pain Advance diet to clear liquid today Monitor for passing gas Possible aspiration pneumonia Right upper lobe ground-glass opacity Continue Zosyn Oxygen as needed Chronic HFrEF, compensated. No evidence of acute exacerbation Monitor while on IVF Dementia without behaviors No evidence of delirium As of encephalopathy in the setting of sepsis QUALITY METRICS - VTE: Heparin subcutaneous t.i.d. 5000 (for possible surgical intervention) - CODE STATUS: Full code - DIET: Clear liquid Diet Quality Stroke Does the patient have a stroke diagnosis?: No Reason for No Anti-thrombotic by Day Two: N/A - Med Ordered VTE Prior VTE?: No VTE Risk Level:: Medical - moderate - high VTE Device Contraindication: N/A - Device Ordered VTE Drug Contraindication: N/A - Med Ordered
[2025-05-07 11:51] VITALS: BP 142/75; PULSE 71; RESP 16; TEMP 36.3; O2SAT 97
[2025-05-07 15:15] VITALS: BP 141/65; PULSE 70; RESP 16; TEMP 36.5; O2SAT 97
--- NOTE | 2025-05-07 17:44 | PC.NURSE ---
Pt abdomen more distended and pt reporting pain. Dr. Duque notified. No new orders. Continue clear liquids as tolerated.
[2025-05-07 19:52] VITALS: BP 141/89; PULSE 72; RESP 18; TEMP 36.4; O2SAT 95
[2025-05-07 23:02] VITALS: BP 135/62; PULSE 68; RESP 18; TEMP 36.4; O2SAT 94
[2025-05-08] MEDS: 0.9 % Sodium Chloride Flush 3 ML SYRINGE IVFLUSH ×4 (02:36→21:06)
[2025-05-08 03:04] VITALS: BP 155/71; PULSE 73; RESP 18; TEMP 36.4; O2SAT 95
[2025-05-08 08:00] VITALS: BP 147/76; PULSE 66; RESP 18; TEMP 36.2; O2SAT 98
[2025-05-08] MEDS: Lidocaine 4 % Patch ADH..PATCH 1 PATCH TRANSDERMA (08:26)
--- NOTE | 2025-05-08 09:49 | PM.PNGS ---
Subjective Subjective Date of Service: 05/08/25 <Damon Hylton PA-C - Last Filed: 05/08/25 09:52> 05/08/25 <Fahad Ramirez MD - Last Filed: 05/08/25 15:29> Interval history: No acute events overnight. Complaining of some pain related to Lovenox injections, does also endorse some lower left quadrant pain. Family continues to prefer conservative management of the antibiotics versus surgery. <Damon Hylton PA-C - Last Filed: 05/08/25 09:52> Physical Exam Vital Signs: Vital Signs: Last Vital Signs Temp 97.1 F 05/08/25 08:00 Pulse 66 05/08/25 08:00 Resp 18 05/08/25 08:00 BP 147/76 H 05/08/25 08:00 Pulse Ox 98 05/08/25 08:00 O2 Del Method Room Air 05/08/25 08:00 BMI result Body Mass Index 24.4 <Damon Hylton PA-C - Last Filed: 05/08/25 09:52> Const: General: comfortable and no acute distress <Damon Hylton PA-C - Last Filed: 05/08/25 09:52> GI: Inspection: No distended <Damon Hylton PA-C - Last Filed: 05/08/25 09:52> Palpation (GI): Soft to palpation and Tenderness to palpation present (GI) (mild generalized tendernesss) <Damon Hylton PA-C - Last Filed: 05/08/25 09:52> Objective Data Active Medications Acetaminophen (Acetaminophen 325 Mg Tablet) 650 mg PO Q6H PRN PRN Reason: Pain, Mild 1-3,fever,headache Last Admin: 05/08/25 04:21 Dose: 650 mg Documented By: SHAY Acetaminophen (Acetaminophen Supp 650 Mg Supp.Rect) 650 mg [place] Q6H PRN PRN Reason: Fever >100.4 Last Admin: 05/04/25 04:39 Dose: 650 mg Documented By: GUANAKO Calcium Carbonate (Calcium Carbonate 750 Mg Tab.Chew) 750 mg PO Q4H PRN PRN Reason: Heartburn Heparin Sodium (Porcine) (Heparin Sodium,Porcine 5,000 Unit/Ml Vial) 5,000 unit SUBCUT Q12H [facility] Last Admin: 05/08/25 08:02 Dose: 5,000 unit Documented By: WAYNE Piperacillin Sod/Tazobactam (Sod 3.375 gm/ Sodium Chloride) 50 mls @ 100 mls/hr IV Q6H [facility] Last Infusion: 05/08/25 08:32 Dose: Infused Documented By: GERALDINE Lidocaine (Lidocaine 4 % Patch Adh..Patch) 1 patch TRANSDERMA DAILY [facility]; Protocol Last Admin: 05/08/25 08:26 Dose: 1 patch Documented By: WAYNE Magnesium Hydroxide (Milk Of Magnesia 30 Ml Oral.Susp) 30 ml PO DAILY PRN PRN Reason: Constipation Melatonin (Melatonin 3 Mg Tablet) 6 mg PO BEDTIME PRN PRN Reason: Insomnia Morphine Sulfate (Morphine Sulfate 2 Mg/Ml Cartridge) 2 mg IVPUSH Q4H PRN; Protocol PRN Reason: Pain, Severe (Pain Scale 7-10) Last Admin: 05/04/25 20:21 Dose: 2 mg Documented By: RHIANNON Ondansetron HCl (Ondansetron Hcl 4 Mg/2 Ml Vial) 4 mg IVPUSH Q8H PRN PRN Reason: Nausea and Vomiting Sodium Chloride (0.9 % Sodium Chloride Flush 3 Ml Syringe) 3 ml IVFLUSH QSHIFT [facility] Last Admin: 05/08/25 08:02 Dose: 3 ml Documented By: WAYNE <Damon Hylton PA-C - Last Filed: 05/08/25 09:52> Labs CBC & Chem 7: 05/04/25 05:02 05/04/25 05:02 <Damon Hylton PA-C - Last Filed: 05/08/25 09:52> Procedures Date of Service Date of Service: 05/08/25 <Damon Hylton PA-C - Last Filed: 05/08/25 09:52> 05/08/25 <Fahad Ramirez MD - Last Filed: 05/08/25 15:29> Progress Note: A&P Assessment and plan (1) Diverticulitis of colon with perforation: Status: Acute <Damon Hylton PA-C - Last Filed: 05/08/25 09:52> Assessment and Plan: She remains stable No fever Abdomen is soft, benign although with tenderness Okay to try clear liquids As per family, no surgical intervention Discussed with family at bedside again Seen and examined independently <Fahad Ramirez MD - Last Filed: 05/08/25 15:29> Assessment and Plan: 84 year old female followed for acute diverticulitis microperforation, largely unchanged. pain is mild and left lower quadrant, also complaining of pain from Lovenox injection sites. Family still requesting no surgical intervention, we will continue with IV antibiotics for now. Abdomen soft, mildly tender throughout, itherwise benign Vitals remain stable although she is hypertensive. Continue IV antibiotics No surgical intervention at this time per family's request. We will continue to follow throughout admission <Damon Hylton PA-C - Last Filed: 05/08/25 09:52> Time Spent With Patient Time: Total time managing care of this patient today ____ minutes. <Damon Hylton PA-C - Last Filed: 05/08/25 09:52> Quality Stroke Does the patient have a stroke diagnosis?: No <Damon Hylton PA-C - Last Filed: 05/08/25 09:52> Reason for No Anti-thrombotic by Day Two: N/A - Med Ordered <Damon Hylton PA-C - Last Filed: 05/08/25 09:52> VTE Prior VTE?: No <Damon Hylton PA-C - Last Filed: 05/08/25 09:52> VTE Risk Level:: Medical - moderate - high <Damon Hylton PA-C - Last Filed: 05/08/25 09:52> VTE Device Contraindication: N/A - Device Ordered <Damon Hylton PA-C - Last Filed: 05/08/25 09:52> VTE Drug Contraindication: N/A - Med Ordered <Damon Hylton PA-C - Last Filed: 05/08/25 09:52>
--- NOTE | 2025-05-08 10:17 | MHC.CLN ---
F/U DIET ADVANCED TO FULL LIQUIDS TODAY. ADDING ENSURE TID TO PROMOTE NUTRITIONAL INTAKE. SUPPLEMENT PROVIDES 1050 KCALS, 60 G PROTEIN. PATIENT WITH PERFORATED DIVERTICULUM. NO SURGERY PER FAMILY.
--- NOTE | 2025-05-08 11:06 | MHC.CM.PN ---
Per MD rounds, not medically cleared for dc at this time. CM will continue to follow.
[2025-05-08 12:00] VITALS: BP 153/78; PULSE 67; RESP 18; TEMP 36.2; O2SAT 97
[2025-05-08 15:27] VITALS: BP 148/80; PULSE 73; RESP 18; TEMP 36.6; O2SAT 96
--- NOTE | 2025-05-08 16:03 | HO.PM.IMPN ---
Subjective Subjective Date of Service: 05/08/25 Interval History: Feels well today. The patient is demented at baseline, and represents a relatively unreliable historian. She does endorse some abdominal pain, however when she shows me the areas of pain, it is the site of the VTE prophylaxis injection sites - ecchymotic and tender on light palpation of the skin. The patient endorses that she is hungry, however expresses that she does not want to worsen the pain (around those ecchymotic sites) Encouraged the patient to intake p.o., to observe if there are any other symptoms Review of Systems Review of Systems: Yes Unobtainable due to mental status Physical Exam Exam: Exam: General: A&O x3, oriented to time place person and situation, comfortable, no pain Cardiac: S1, S2 auscultated with no S3/4, no MRG. Well perfused. Respiratory: Normal breath sounds auscultated throughout all lung zones, without wheezing, rales. Normal rate. GI/ : No abdominal pain on palpation, no masses or distentions. Ecchymosis around the lower abdomen where VTE prophylaxis injections have been administered, these are tender to touch MSK: Normal ambulation without pain at bony prominences or musculature Neurological: Normal neurological examination on overview, without obvious CN II-XII abnormalities. Vital Signs: Vital Signs: Last Vital Signs Temp 97.8 F 05/08/25 15:27 Pulse 73 05/08/25 15:27 Resp 18 05/08/25 15:27 BP 148/80 H 05/08/25 15:27 Pulse Ox 96 05/08/25 15:27 O2 Del Method Room Air 05/08/25 15:27 BMI result Body Mass Index 24.4 Objective Data Active Medications Acetaminophen (Acetaminophen 325 Mg Tablet) 650 mg PO Q6H PRN PRN Reason: Pain, Mild 1-3,fever,headache Last Admin: 05/08/25 12:15 Dose: 650 mg Documented By: WAYNE Acetaminophen (Acetaminophen Supp 650 Mg Supp.Rect) 650 mg [place] Q6H PRN PRN Reason: Fever >100.4 Last Admin: 05/04/25 04:39 Dose: 650 mg Documented By: GUANAKO Calcium Carbonate (Calcium Carbonate 750 Mg Tab.Chew) 750 mg PO Q4H PRN PRN Reason: Heartburn Heparin Sodium (Porcine) (Heparin Sodium,Porcine 5,000 Unit/Ml Vial) 5,000 unit SUBCUT Q12H [facility] Last Admin: 05/08/25 08:02 Dose: 5,000 unit Documented By: WAYNE Piperacillin Sod/Tazobactam (Sod 3.375 gm/ Sodium Chloride) 50 mls @ 100 mls/hr IV Q6H [facility] Last Infusion: 05/08/25 15:26 Dose: Infused Documented By: GERALDINE Lidocaine (Lidocaine 4 % Patch Adh..Patch) 1 patch TRANSDERMA DAILY [facility]; Protocol Last Admin: 05/08/25 08:26 Dose: 1 patch Documented By: WAYNE Lidocaine (Lidocaine 5 % Ointment 35 Gm) 1 appl TOPICAL Q6H PRN; Protocol PRN Reason: Abd pain Magnesium Hydroxide (Milk Of Magnesia 30 Ml Oral.Susp) 30 ml PO DAILY PRN PRN Reason: Constipation Melatonin (Melatonin 3 Mg Tablet) 6 mg PO BEDTIME PRN PRN Reason: Insomnia Morphine Sulfate (Morphine Sulfate 2 Mg/Ml Cartridge) 2 mg IVPUSH Q4H PRN; Protocol PRN Reason: Pain, Severe (Pain Scale 7-10) Last Admin: 05/04/25 20:21 Dose: 2 mg Documented By: RHIANNON Ondansetron HCl (Ondansetron Hcl 4 Mg/2 Ml Vial) 4 mg IVPUSH Q8H PRN PRN Reason: Nausea and Vomiting Sodium Chloride (0.9 % Sodium Chloride Flush 3 Ml Syringe) 3 ml IVFLUSH QSHIFT [facility] Last Admin: 05/08/25 14:56 Dose: 3 ml Documented By: WAYNE Labs 05/04/25 05:02 05/04/25 05:02 Assessment and Plan (1) Depression: Status: Acute (2) Cardiomyopathy: Status: Acute (3) CHF (congestive heart failure): Status: Acute (4) GERD (gastroesophageal reflux disease): Status: Acute (5) Chronic kidney disease, stage 2 (mild): Status: Acute (6) Pneumoperitoneum: Status: Acute (7) Diverticulitis of colon with perforation: Status: Acute (8) Sepsis: Status: Acute (9) Chronic interstitial lung disease: Status: Acute (10) Alzheimer's dementia without behavioral disturbance: Status: Acute Plan 84-year-old female, Estonian-speaking only, with a past medical history of CHFrEF, insomnia, GERD, dementia here with abdominal pain and found to have perforated acute diverticultis and sepsis, has thus far declined surgery. Diverticulitis of colon with perforation/ Pneumoperitoneum Sepsis - resolved Seen by Dr. Ramirez and offered surgery but thus far decline in favor of IV Abx, Clinically looks better today, no fever, WB trending down and exam encouraging. Continue IV Zosyn, follow culture. Surgery following and if deteliorate, will discuss surgery again. Maintain IVF, and morphine for pain Advance diet to clear liquid today Monitor for passing gas Possible aspiration pneumonia Right upper lobe ground-glass opacity Continue Zosyn Oxygen as needed Chronic HFrEF, compensated. No evidence of acute exacerbation Monitor while on IVF Dementia without behaviors No evidence of delirium As of encephalopathy in the setting of sepsis [employer] - VTE: Heparin subcutaneous t.i.d. 5000 (for possible surgical intervention) - CODE STATUS: Full code - DIET: Clear liquid Diet Total time managing care of this patient today: 35 minutes. Quality Stroke Does the patient have a stroke diagnosis?: No Reason for No Anti-thrombotic by Day Two: N/A - Med Ordered VTE Prior VTE?: No VTE Risk Level:: Medical - moderate - high VTE Device Contraindication: N/A - Device Ordered VTE Drug Contraindication: N/A - Med Ordered
[2025-05-08 20:00] VITALS: BP 142/66; PULSE 74; RESP 18; TEMP 36.2; O2SAT 97
[2025-05-08 23:29] VITALS: BP 139/60; PULSE 66; RESP 18; TEMP 36.3; O2SAT 95
[2025-05-09 03:27] VITALS: BP 132/60; PULSE 67; RESP 18; TEMP 36.2; O2SAT 97
[2025-05-09 07:32] VITALS: BP 137/66; PULSE 65; RESP 12; TEMP 37; O2SAT 95
[2025-05-09] MEDS: Lidocaine 4 % Patch ADH..PATCH 1 PATCH TRANSDERMA (08:50)
[2025-05-09] MEDS: 0.9 % Sodium Chloride Flush 3 ML SYRINGE IVFLUSH ×3 (08:51→20:35)
[2025-05-09 11:32] VITALS: BP 140/66; PULSE 68; RESP 14; TEMP 36.7; O2SAT 97
--- NOTE | 2025-05-09 12:16 | HO.PM.IMPN ---
Subjective Subjective Date of Service: 05/09/25 Interval History: Patient is pleasantly demented Persistent complaints of abdominal pain around the injection sites for enoxaparin. The patient otherwise has no new complaints. Has been eating well. KUB yesterday revealing normal bowel gas patterns, without evidence of pneumoperitoneum at this time Review of Systems Review of Systems: Yes all other systems are reviewed and are negative Physical Exam Exam: Exam: General: A&O x3, oriented to time place person and situation, comfortable, no pain Cardiac: S1, S2 auscultated with no S3/4, no MRG. Well perfused. Respiratory: Normal breath sounds auscultated throughout all lung zones, without wheezing, rales. Normal rate. GI/ : No abdominal pain on palpation, no masses or distentions. MSK: Normal ambulation without pain at bony prominences or musculature Neurological: Normal neurological examination on overview, without obvious CN II-XII abnormalities. Vital Signs: Vital Signs: Last Vital Signs Temp 98.1 F 05/09/25 11:32 Pulse 68 05/09/25 11:32 Resp 14 05/09/25 11:32 BP 140/66 H 05/09/25 11:32 Pulse Ox 97 05/09/25 11:32 O2 Del Method Room Air 05/09/25 11:32 BMI result Body Mass Index 24.4 Objective Data Active Medications Acetaminophen (Acetaminophen 325 Mg Tablet) 650 mg PO Q6H PRN PRN Reason: Pain, Mild 1-3,fever,headache Last Admin: 05/08/25 12:15 Dose: 650 mg Documented By: WAYNE Acetaminophen (Acetaminophen Supp 650 Mg Supp.Rect) 650 mg [place] Q6H PRN PRN Reason: Fever >100.4 Last Admin: 05/04/25 04:39 Dose: 650 mg Documented By: GUANAKO Calcium Carbonate (Calcium Carbonate 750 Mg Tab.Chew) 750 mg PO Q4H PRN PRN Reason: Heartburn Heparin Sodium (Porcine) (Heparin Sodium,Porcine 5,000 Unit/Ml Vial) 5,000 unit SUBCUT Q12H [facility] Last Admin: 05/09/25 08:50 Dose: 5,000 unit Documented By: VERITO Piperacillin Sod/Tazobactam (Sod 3.375 gm/ Sodium Chloride) 50 mls @ 100 mls/hr IV Q6H [facility] Last Infusion: 05/09/25 09:26 Dose: Infused Documented By: VERITO Lidocaine (Lidocaine 4 % Patch Adh..Patch) 1 patch TRANSDERMA DAILY [facility]; Protocol Last Admin: 05/09/25 08:50 Dose: 1 patch Documented By: VERITO Lidocaine (Lidocaine 5 % Ointment 35 Gm) 1 appl TOPICAL Q6H PRN; Protocol PRN Reason: Abd pain Magnesium Hydroxide (Milk Of Magnesia 30 Ml Oral.Susp) 30 ml PO DAILY PRN PRN Reason: Constipation Melatonin (Melatonin 3 Mg Tablet) 6 mg PO BEDTIME PRN PRN Reason: Insomnia Ondansetron HCl (Ondansetron Hcl 4 Mg/2 Ml Vial) 4 mg IVPUSH Q8H PRN PRN Reason: Nausea and Vomiting Sodium Chloride (0.9 % Sodium Chloride Flush 3 Ml Syringe) 3 ml IVFLUSH QSHIFT [facility] Last Admin: 05/09/25 08:51 Dose: 3 ml Documented By: VERITO Labs 05/04/25 05:02 05/04/25 05:02 Microbiology Microbiology Results: Microbiology 05/03/25 17:45 Blood Culture - Final Blood - Venous No growth after 5 days. 05/03/25 17:45 Blood Culture - Final Blood - Venous No growth after 5 days. Assessment and Plan (1) Cardiomyopathy: Status: Acute (2) GERD (gastroesophageal reflux disease): Status: Acute (3) Diverticulitis of colon with perforation: Status: Acute (4) Pneumoperitoneum: Status: Acute (5) Chronic kidney disease, stage 2 (mild): Status: Acute (6) Sepsis: Status: Acute (7) Alzheimer's dementia without behavioral disturbance: Status: Acute Plan 84-year-old female, Frisian-speaking only, with a past medical history of CHFrEF, insomnia, GERD, dementia here with abdominal pain and found to have perforated acute diverticultis and sepsis, has thus far declined surgery. Diverticulitis of colon with perforation/ Pneumoperitoneum Sepsis - resolved Seen by Dr. Ramirez and offered surgery but thus far decline in favor of IV Abx, Clinically looks better today, no fever, WB trending down and exam encouraging. Continue IV Zosyn, follow culture. Surgery following and if deteliorate, will discuss surgery again. Maintain IVF, and morphine for pain Advance diet to clear liquid today Monitor for passing gas Possible aspiration pneumonia Right upper lobe ground-glass opacity Continue Zosyn Oxygen as needed Chronic HFrEF, compensated. No evidence of acute exacerbation Monitor while on IVF Dementia without behaviors No evidence of delirium As of encephalopathy in the setting of sepsis QUALITY [employer] - VTE: Heparin subcutaneous t.i.d. 5000 (for possible surgical intervention) - CODE STATUS: Full code - DIET: Clear liquid Diet Total time managing care of this patient today: 35 minutes. Quality Stroke Does the patient have a stroke diagnosis?: No Reason for No Anti-thrombotic by Day Two: N/A - Med Ordered VTE Prior VTE?: No VTE Risk Level:: Medical - moderate - high VTE Device Contraindication: N/A - Device Ordered VTE Drug Contraindication: N/A - Med Ordered
[2025-05-09 13:20] LABS: Anion Gap 10 (12-20); Blood Urea Nitrogen 7 mg/dL (9-16); Calcium 9.2 mg/dL (8.4-10.2); Carbon Dioxide 32 mmol/L (22-29); Chloride 105 mmol/L (96-108); Creatinine Clr Calc Pharmacy 40.8; Estimated Glomerular Filt Rate > 60; Potassium 3.5 mmol/L (3.3-5.1); Sodium 143 mmol/L (135-145)
[2025-05-09 15:01] VITALS: BP 136/63; PULSE 67; RESP 14; TEMP 36.9; O2SAT 95
[2025-05-09 19:09] VITALS: BP 132/71; PULSE 73; RESP 18; TEMP 36.6; O2SAT 97
[2025-05-09 23:59] VITALS: BP 147/70; PULSE 71; RESP 14; TEMP 36; O2SAT 93
[2025-05-10 02:54] VITALS: BP 164/71; PULSE 68; RESP 16; TEMP 36; O2SAT 94
[2025-05-10 07:05] VITALS: BP 148/83; PULSE 69; RESP 12; TEMP 36.9; O2SAT 93
[2025-05-10] MEDS: Lidocaine 4 % Patch ADH..PATCH 1 PATCH TRANSDERMA (08:17)
[2025-05-10] MEDS: 0.9 % Sodium Chloride Flush 3 ML SYRINGE IVFLUSH ×3 (08:19→20:29)
[2025-05-10 09:06] LABS: Anion Gap 11 (12-20); Blood Urea Nitrogen 8 mg/dL (9-16); Calcium 8.9 mg/dL (8.4-10.2); Carbon Dioxide 32 mmol/L (22-29); Chloride 104 mmol/L (96-108); Creatinine Clr Calc Pharmacy 36.6; Estimated Glomerular Filt Rate > 60; Potassium 2.7 mmol/L (3.3-5.1); Sodium 144 mmol/L (135-145)
[2025-05-10] MEDS: Potassium Chloride/H20 10 MEQ/100 ML PIGGYBACK 100 MEQ IV ×4 (09:19→13:06)
[2025-05-10 11:39] VITALS: BP 140/79; PULSE 73; RESP 16; TEMP 36.3; O2SAT 97
[2025-05-10 15:42] VITALS: BP 142/82; PULSE 74; RESP 16; TEMP 37.1; O2SAT 96
--- NOTE | 2025-05-10 18:25 | HO.PM.IMPN ---
Subjective Subjective Date of Service: 05/10/25 Interval History: Pain improved Has been tolerating a full liquid diet No nausea, vomiting, diarrhea Had bowel movement yesterday Review of Systems Review of Systems: Yes all other systems are reviewed and are negative Physical Exam Exam: Exam: General: AOx1, no acute distress Resp: CTA bilaterally CVS: S1, S2, RRR GI: +BS, no distention, soft, mild diffuse tenderness Skin: Warm, dry Neuro: Cranial nerves II-XII grossly intact bilaterally. Motor grossly intact bilaterally Extremities: No edema Psych: Pleasantly confused Vital Signs: Vital Signs: Last Vital Signs Temp 98.7 F 05/10/25 15:42 Pulse 74 05/10/25 15:42 Resp 16 05/10/25 15:42 BP 142/82 H 05/10/25 15:42 Pulse Ox 96 05/10/25 15:42 O2 Del Method Room Air 05/10/25 15:42 BMI result Body Mass Index 24.4 Objective Data Active Medications Acetaminophen (Acetaminophen 325 Mg Tablet) 650 mg PO Q6H PRN PRN Reason: Pain, Mild 1-3,fever,headache Last Admin: 05/08/25 12:15 Dose: 650 mg Documented By: WAYNE Acetaminophen (Acetaminophen Supp 650 Mg Supp.Rect) 650 mg [place] Q6H PRN PRN Reason: Fever >100.4 Last Admin: 05/04/25 04:39 Dose: 650 mg Documented By: GUANAKO Calcium Carbonate (Calcium Carbonate 750 Mg Tab.Chew) 750 mg PO Q4H PRN PRN Reason: Heartburn Heparin Sodium (Porcine) (Heparin Sodium,Porcine 5,000 Unit/Ml Vial) 5,000 unit SUBCUT Q12H [facility] Last Admin: 05/10/25 08:16 Dose: 5,000 unit Documented By: PATRICIA Piperacillin Sod/Tazobactam (Sod 3.375 gm/ Sodium Chloride) 50 mls @ 100 mls/hr IV Q6H [facility] Last Infusion: 05/10/25 16:32 Dose: Infused Documented By: JARAD Lidocaine (Lidocaine 4 % Patch Adh..Patch) 1 patch TRANSDERMA DAILY [facility]; Protocol Last Admin: 05/10/25 08:17 Dose: 1 patch Documented By: PATRICIA Lidocaine (Lidocaine 5 % Ointment 35 Gm) 1 appl TOPICAL Q6H PRN; Protocol PRN Reason: Abd pain Magnesium Hydroxide (Milk Of Magnesia 30 Ml Oral.Susp) 30 ml PO DAILY PRN PRN Reason: Constipation Melatonin (Melatonin 3 Mg Tablet) 6 mg PO BEDTIME PRN PRN Reason: Insomnia Ondansetron HCl (Ondansetron Hcl 4 Mg/2 Ml Vial) 4 mg IVPUSH Q8H PRN PRN Reason: Nausea and Vomiting Sodium Chloride (0.9 % Sodium Chloride Flush 3 Ml Syringe) 3 ml IVFLUSH QSHIFT [facility] Last Admin: 05/10/25 16:03 Dose: 3 ml Documented By: PATRICIA Labs 05/04/25 05:02 05/10/25 05:54 Labs: Laboratory Results - last 24 hr 05/10/25 05:54 Hold Purple Top SEE NOTE Anion Gap 11 L Estim Creat Clear Calc 36.6 Estimated GFR > 60 Random Glucose 100 Calcium 8.9 Assessment and Plan (1) Diverticulitis of colon with perforation: Status: Acute Plan 84-year-old female, Maltese-speaking only, with a past medical history of CHFrEF, insomnia, GERD, dementia here with abdominal pain and found to have perforated acute diverticultis and sepsis, has thus far declined surgery. Diverticulitis of colon with perforation/ Pneumoperitoneum Sepsis - resolved Seen by Dr. Ramirez and offered surgery but thus far decline in favor of IV Abx, Clinically looks better today, no fever, WB trending down and exam encouraging; tolerating full liquid diet Continue IV Zosyn; BCx negative after 5 days Surgery following; if pt deteriorates will discuss surgery again. Advance diet to full diet; pt without dentures, will start with pureed diet pending swallow evaluation Possible aspiration pneumonia Right upper lobe ground-glass opacity Continue Zosyn Oxygen as needed Chronic HFrEF, compensated. No evidence of acute exacerbation Monitor while on IVF Dementia without behaviors No evidence of delirium Continue donepezil, mirtazapine, sertraline Pt requires continued hospitalization for IV antibiotics and monitor response to advancing diet to full. Quality Stroke Does the patient have a stroke diagnosis?: No Reason for No Anti-thrombotic by Day Two: N/A - Med Ordered VTE Prior VTE?: No VTE Risk Level:: Medical - moderate - high VTE Device Contraindication: N/A - Device Ordered VTE Drug Contraindication: N/A - Med Ordered
[2025-05-10 19:35] VITALS: BP 142/67; PULSE 70; RESP 18; TEMP 36.4; O2SAT 94
[2025-05-10 23:16] VITALS: BP 150/83; PULSE 73; RESP 18; TEMP 36.3; O2SAT 92
[2025-05-11 03:13] VITALS: BP 165/67; PULSE 69; RESP 15; TEMP 36.4; O2SAT 94
[2025-05-11 07:17] LABS: Anion Gap 12 (12-20); Blood Urea Nitrogen 7 mg/dL (9-16); Calcium 9.1 mg/dL (8.4-10.2); Carbon Dioxide 28 mmol/L (22-29); Chloride 106 mmol/L (96-108); Creatinine Clr Calc Pharmacy 39.3; Estimated Glomerular Filt Rate > 60; Potassium 3.4 mmol/L (3.3-5.1); Sodium 143 mmol/L (135-145)
[2025-05-11 07:47] VITALS: BP 136/78; PULSE 72; RESP 17; TEMP 36.1; O2SAT 94
[2025-05-11] MEDS: Lidocaine 4 % Patch ADH..PATCH 1 PATCH TRANSDERMA (09:22)
[2025-05-11] MEDS: 0.9 % Sodium Chloride Flush 3 ML SYRINGE IVFLUSH ×2 (09:22→20:57)
--- NOTE | 2025-05-11 09:22 | P.PNGS_ITS ---
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 No new complaints, some generalized pain in her abdomen. <Damon Hylton PA-C - Last Filed: 05/11/25 11:54> Physical Exam 2 Vital Signs: Vital Signs: Last Vital Signs Temp 96.9 F 05/11/25 07:47 Pulse 72 05/11/25 07:47 Resp 17 05/11/25 07:47 BP 136/78 05/11/25 07:47 Pulse Ox 94 05/11/25 07:47 O2 Del Method Room Air 05/11/25 07:47 BMI result Body Mass Index 24.4 <Damon Hylton PA-C - Last Filed: 05/11/25 11:54> Const: General: comfortable and no acute distress <Damon Hylton PA-C - Last Filed: 05/11/25 11:54> GI: Inspection: No distended <Damon Hylton PA-C - Last Filed: 05/11/25 11:54> Palpation (GI): Soft to palpation and Tenderness to palpation present (GI) (mild generalized tendernesss) <Damon Hylton PA-C - Last Filed: 05/11/25 11:54> Objective Data Active Medications Acetaminophen (Acetaminophen 325 Mg Tablet) 650 mg PO Q6H PRN PRN Reason: Pain, Mild 1-3,fever,headache Last Admin: 05/08/25 12:15 Dose: 650 mg Documented By: WAYNE Acetaminophen (Acetaminophen Supp 650 Mg Supp.Rect) 650 mg [place] Q6H PRN PRN Reason: Fever >100.4 Last Admin: 05/04/25 04:39 Dose: 650 mg Documented By: GUANAKO Amlodipine Besylate (Amlodipine Besylate 5 Mg Tablet) 5 mg PO DAILY [facility]; Protocol Calcium Carbonate (Calcium Carbonate 750 Mg Tab.Chew) 750 mg PO Q4H PRN PRN Reason: Heartburn Heparin Sodium (Porcine) (Heparin Sodium,Porcine 5,000 Unit/Ml Vial) 5,000 unit SUBCUT Q12H [facility] Last Admin: 05/10/25 20:29 Dose: 5,000 unit Documented By: JARAD Piperacillin Sod/Tazobactam (Sod 3.375 gm/ Sodium Chloride) 50 mls @ 100 mls/hr IV Q6H [facility] Last Infusion: 05/11/25 03:38 Dose: Infused Documented By: DULCE Lidocaine (Lidocaine 4 % Patch Adh..Patch) 1 patch TRANSDERMA DAILY [facility]; Protocol Last Admin: 05/10/25 08:17 Dose: 1 patch Documented By: PATRICIA Lidocaine (Lidocaine 5 % Ointment 35 Gm) 1 appl TOPICAL Q6H PRN; Protocol PRN Reason: Abd pain Magnesium Hydroxide (Milk Of Magnesia 30 Ml Oral.Susp) 30 ml PO DAILY PRN PRN Reason: Constipation Melatonin (Melatonin 3 Mg Tablet) 6 mg PO BEDTIME PRN PRN Reason: Insomnia Ondansetron HCl (Ondansetron Hcl 4 Mg/2 Ml Vial) 4 mg IVPUSH Q8H PRN PRN Reason: Nausea and Vomiting Sodium Chloride (0.9 % Sodium Chloride Flush 3 Ml Syringe) 3 ml IVFLUSH QSHIFT [facility] Last Admin: 05/10/25 20:29 Dose: 3 ml Documented By: JARAD <Damon Hylton PA-C - Last Filed: 05/11/25 11:54> Labs CBC & Chem 7: 05/04/25 05:02 05/12/25 06:03 <Damon Hylton PA-C - Last Filed: 05/11/25 11:54> Labs: Laboratory Results - last 24 hr 05/11/25 06:11 Hold Purple Top SEE NOTE Anion Gap 12 Estim Creat Clear Calc 39.3 Estimated GFR > 60 Random Glucose 111 Calcium 9.1 <Damon Hylton PA-C - Last Filed: 05/11/25 11:54> Procedures Date of Service Date of Service: 05/11/25 <Damon Hylton PA-C - Last Filed: 05/11/25 11:54> 05/12/25 <Fahad Ramirez MD - Last Filed: 05/12/25 11:13> Progress Note: A&P Assessment and plan (1) Diverticulitis of colon with perforation: Status: Acute <Damon Hylton PA-C - Last Filed: 05/11/25 11:54> Assessment and Plan: Agree with JONATHON Hylton Seen and examined independently <Fahad Ramirez MD - Last Filed: 05/12/25 11:13> Assessment and Plan: 84 year old female followed for acute diverticulitis microperforation, largely unchanged. pain is mild and left lower quadrant, also complaining of pain from Lovenox injection sites. Family still requesting no surgical intervention, we will continue with IV antibiotics for now. Abdomen soft, mildly tender throughout, itherwise benign. Has been unchanged throughout our evaluations. Vitals remain stable. From a surgical standpoint can likely be discharged once cleared by Medicine. General surgery will sign off at this point, please reconsult as needed Continue IV antibiotics No surgical intervention at this time per family's request. We will continue to follow throughout admission <Damon Hylton PA-C - Last Filed: 05/11/25 11:54> Time Spent With Patient Time: Total time managing care of this patient today ____ minutes. <Damon Hylton PA-C - Last Filed: 05/11/25 11:54> Quality Stroke Does the patient have a stroke diagnosis?: No <Damon Hylton PA-C - Last Filed: 05/11/25 11:54> Reason for No Anti-thrombotic by Day Two: N/A - Med Ordered <Damon Hylton PA-C - Last Filed: 05/11/25 11:54> VTE Prior VTE?: No <Damon Hylton PA-C - Last Filed: 05/11/25 11:54> VTE Risk Level:: Medical - moderate - high <Damon Hylton PA-C - Last Filed: 05/11/25 11:54> VTE Device Contraindication: N/A - Device Ordered <Damon Hylton PA-C - Last Filed: 05/11/25 11:54> VTE Drug Contraindication: N/A - Med Ordered <Damon Hylton PA-C - Last Filed: 05/11/25 11:54>
[2025-05-11 12:00] VITALS: BP 139/73; PULSE 78; RESP 18; TEMP 36.5; O2SAT 95
--- NOTE | 2025-05-11 12:38 | MHC.SL.SWA ---
Speech Pathologist Impression: Adequate oropharyngeal coordination, PMH esophageal dysphagia Risk of Aspiration Due to: Longstanding PMH esophageal involvement Hx of aspiration PNA Dysphasia Diet Status: Liquid Consistency and Strategies for Safe Swallow: Liquid Intake Recommendation: Thin Liquid Intake Strategies: Solid Food Consistency: Dietary Recommendations: Pureed (NDD1) Additional Modifications to Solid Foods: Oral Medication Intake: Crushed with Puree Please contact the pharmacy regarding appropriate crushable or liquid drug formulations that are available whenever modified delivery is recommended. Compensatory Strategies and Precautions to be Taken for Safe Swallow: Supervision While Eating and Drinking for Safe Swallow: Total Assistance (1:1) Foods to Avoid: Swallowing Recommended Treatments: Recommendation for Speech: Inpatient Speech Therapy Comment: Pt has hx of esophageal dysphagia. Pt wears upper denture only. No solids trialed with clinical bedside swallow evaluation. Pt exhibited adequate oropharyngeal coordination for homogenous consistencies. Recc NDD1 with thins, GARNETTER to follow as indicated. Frequency/Duration: Followup as indicated Date Range for Service Req: Timeline to reassess: Educational Aide Clinican/Clinical Fellow: No Supervisory Statement: I have reviewed and agree with the student/clinical fellow's documentation: N/A Speech Language Pathologist: Sharon Reyes M.S., CCC-GARNETTER
--- NOTE | 2025-05-11 14:24 | MHC.CM.PN ---
Not medically cleared for DC at this time. CM will continue to follow.
[2025-05-11 15:47] VITALS: BP 141/63; PULSE 75; RESP 16; TEMP 36.9; O2SAT 96
--- NOTE | 2025-05-11 16:47 | HO.PM.IMPN ---
Subjective Subjective Date of Service: 05/11/25 Interval History: No acute events overnight Seen and evaluated by SOAP TENDER who recommended pureed diet with thin liquids Tolerating solid diet No significant N/V/D or abd pain Review of Systems Review of Systems: Yes all other systems are reviewed and are negative Physical Exam Exam: Exam: General: AOx1, no acute distress Resp: CTA bilaterally CVS: S1, S2, RRR GI: +BS, no distention, mild central abd tenderness Skin: Warm, dry Neuro: Cranial nerves II-XII grossly intact bilaterally. Motor grossly intact bilaterally Extremities: No edema Psych: Pleasantly confuesed Vital Signs: Vital Signs: Last Vital Signs Temp 98.4 F 05/11/25 15:47 Pulse 75 05/11/25 15:47 Resp 16 05/11/25 15:47 BP 141/63 H 05/11/25 15:47 Pulse Ox 96 05/11/25 15:47 O2 Del Method Room Air 05/11/25 15:47 BMI result Body Mass Index 24.4 Objective Data Active Medications Acetaminophen (Acetaminophen 325 Mg Tablet) 650 mg PO Q6H PRN PRN Reason: Pain, Mild 1-3,fever,headache Last Admin: 05/08/25 12:15 Dose: 650 mg Documented By: WAYNE Acetaminophen (Acetaminophen Supp 650 Mg Supp.Rect) 650 mg [place] Q6H PRN PRN Reason: Fever >100.4 Last Admin: 05/04/25 04:39 Dose: 650 mg Documented By: GUANAKO Amlodipine Besylate (Amlodipine Besylate 5 Mg Tablet) 5 mg PO DAILY [facility]; Protocol Last Admin: 05/11/25 09:22 Dose: 5 mg Documented By: GERALDINE Calcium Carbonate (Calcium Carbonate 750 Mg Tab.Chew) 750 mg PO Q4H PRN PRN Reason: Heartburn Heparin Sodium (Porcine) (Heparin Sodium,Porcine 5,000 Unit/Ml Vial) 5,000 unit SUBCUT Q12H [facility] Last Admin: 05/11/25 09:22 Dose: 5,000 unit Documented By: GERALDINE Piperacillin Sod/Tazobactam (Sod 3.375 gm/ Sodium Chloride) 50 mls @ 100 mls/hr IV Q6H [facility] Last Infusion: 05/11/25 14:38 Dose: Infused Documented By: GERALDINE Lidocaine (Lidocaine 4 % Patch Adh..Patch) 1 patch TRANSDERMA DAILY [facility]; Protocol Last Admin: 05/11/25 09:22 Dose: 1 patch Documented By: GERALDINE Lidocaine (Lidocaine 5 % Ointment 35 Gm) 1 appl TOPICAL Q6H PRN; Protocol PRN Reason: Abd pain Magnesium Hydroxide (Milk Of Magnesia 30 Ml Oral.Susp) 30 ml PO DAILY PRN PRN Reason: Constipation Melatonin (Melatonin 3 Mg Tablet) 6 mg PO BEDTIME PRN PRN Reason: Insomnia Ondansetron HCl (Ondansetron Hcl 4 Mg/2 Ml Vial) 4 mg IVPUSH Q8H PRN PRN Reason: Nausea and Vomiting Sodium Chloride (0.9 % Sodium Chloride Flush 3 Ml Syringe) 3 ml IVFLUSH QSHIFT [facility] Last Admin: 05/11/25 16:44 Dose: Not Given Documented By: GERALDINE Non-Admin Reason: Previously Administered Labs 05/04/25 05:02 05/11/25 06:11 Labs: Laboratory Results - last 24 hr 05/11/25 06:11 Hold Purple Top SEE NOTE Anion Gap 12 Estim Creat Clear Calc 39.3 Estimated GFR > 60 Random Glucose 111 Calcium 9.1 Assessment and Plan (1) Diverticulitis of colon with perforation: Status: Acute Plan 84-year-old female, English-speaking only, with a past medical history of CHFrEF, insomnia, GERD, dementia here with abdominal pain and found to have perforated acute diverticultis and sepsis, has thus far declined surgery. Diverticulitis of colon with perforation/ Pneumoperitoneum Sepsis - resolved Seen by Dr. Ramirez and offered surgery but family declined in favor of conservative care with IV Abx Currently no significant N/V/D/abdominal pain Continue IV Zosyn; BCx negative after 5 days Surgery following; if pt deteriorates will discuss surgery again. Tolerating a full diet; pt without lower dentures, NDD1 pureed diet with thin liquids per SOAP TENDER recommendations Possible aspiration pneumonia Right upper lobe ground-glass opacity Continue Zosyn as above Oxygen as needed Chronic HFrEF, compensated. No evidence of acute exacerbation Monitor while on IVF Dementia without behaviors No evidence of delirium Continue donepezil, mirtazapine, sertraline Pt requires continued hospitalization for IV antibiotics and monitor response to advancing diet to full. Has been cleared by general surgery and will likely be able to be discharged home tomorrow. Quality Stroke Does the patient have a stroke diagnosis?: No Reason for No Anti-thrombotic by Day Two: N/A - Med Ordered VTE Prior VTE?: No VTE Risk Level:: Medical - moderate - high VTE Device Contraindication: N/A - Device Ordered VTE Drug Contraindication: N/A - Med Ordered
[2025-05-11 19:46] VITALS: BP 128/60; PULSE 77; RESP 18; TEMP 37.1; O2SAT 95
[2025-05-11 23:53] VITALS: BP 124/62; PULSE 76; RESP 18; TEMP 36.3; O2SAT 95
[2025-05-12 03:41] VITALS: RESP 16
[2025-05-12 08:08] VITALS: BP 141/74; PULSE 72; RESP 12; TEMP 36.1; O2SAT 95
[2025-05-12] MEDS: Lidocaine 4 % Patch ADH..PATCH 1 PATCH TRANSDERMA (10:34)
[2025-05-12 10:37] VITALS: BP 138/68
[2025-05-12] MEDS: 0.9 % Sodium Chloride Flush 3 ML SYRINGE IVFLUSH (10:46)
[2025-05-12 12:00] VITALS: BP 116/57; PULSE 79; RESP 18; TEMP 36.4; O2SAT 97
--- NOTE | 2025-05-12 13:40 | MHC.CM.PN ---
Addendum entered by Annette Franco 05/12/25 15:49: [facility] HAS OBTAINED INSURANCE AUTH. BLS TRANSPORT BOOKED VIA [facility] AT 5 PM. [facility] BOOKING ID #: [id number] RN/PROVIDER UPDATED. SON [place] UPDATED VIA TELEPHONE HCP TANA'S # NOT IN SERVICE. Original Note: P.T. REC STR VS FAMILY SUPPORT. SON IS AGREEABLE TO STR LONG IT A LOCAL CENTER. [facility] OFFERED A BED PENDING AUTH, FAMILY IS IN AGREEMENT WITH PLAN. AUTH PROCESS STARTED. UPDATED.
[2025-05-12 16:05] VITALS: BP 129/62; PULSE 64; RESP 18; TEMP 36.2; O2SAT 95
--- NOTE | 2025-05-12 16:32 | PM.DS ---
DS: Providers Provider Date of Service: 05/12/25 Date of admission: 05/03/25 20:33 Date of discharge: 05/12/25 Primary care physician: [facility] Consults: 05/03/25 21:08 Consult to General Surgery Routine Consulting Provider: [facility] Reason for consultation: diverticulitis with perf/pneumoperitoneum Has provider been notified: Yes DS: Diagnosis Discharge Diagnosis (1) Diverticulitis of colon with perforation: Status: Acute DS: Summary Hospital Course Hospital Course: From admission HPI: Date of Service: 05/03/25 Attending physician on admission: Romero Aguilar Chief Complaint: abdominal pain 84-year-old female, Brazilian-speaking only, glove former used for interview with 2 sons present has past medical history of CHF, insomnia, GERD, dementia and perforation from colonoscopy presents to the emergency department with increased abdominal pain for many days with a decreased appetite. Patient has had no nausea or vomiting. Patient was complaining of sore throat but no fever. Patient currently interactive with son, considered coherent and is aware that she is being admitted to the hospital for microperforation involving diverticuli/ colon via CT scan with evidence of PNA. LA WNL, leukocytosis present, fever notes earlier 101 but no N/V. Pt started on Zosyn in the ED with morphine for pain prn. The ED provider did initially contact Dr. Ramirez who is on-call for surgery and patient was seen immediately by surgeon. Surgeon had a arianna discussion with family and indicated that surgery would result in a colostomy bag that would be permanent. Both sons agreed that they did not want surgery for their loved one due to the colostomy bag. Dr. Ramirez also indicated there was significant risk associated with surgery and that patient may not survive the actual surgery. Sons were told that antibiotics would continue and they felt that that was an option to cure the problem that patient currently has. Education provided to indicate that there is no guarantee that the antibiotics would cure patient's current situation. Both sons were advised that patient's current condition could end with loss of life. There are multiple family members involved and the oldest sibling alive is currently not present today to make advanced directive decision. There is no active healthcare proxy in writing. Both sons present have decided that patient will remain a full code on admission with the understanding that if her heart were to stop or she could not breathe on her own she would receive compressions and would be placed on a mechanical ventilator. This was explained at length with glove former present. Sons indicated that if they signed the MOLST now and something happened to pt overnight, they would be blamed for her passing. MOLST form was presented but because the oldest sibling is not present, the MOLST could not be completed at this time. The oldest sibling will be present tomorrow and the family would like to address the MOLST at that time. Dr. Ramirez also present and agrees with current plan. Per Dr. Ramirez, surgery will continue to see pt daily. Family educated that pt's overall prognosis is guarded. Hospital course Pt was admitted to the hospital for acute diverticulitis with sepsis and microperforations. Pt was seen and evaluated by Dr. Ramirez in surgery who spoke at length with family. Given patient's significant comorbidities, including advanced dementia, CHF, and physical deconditioning, pt was a poor surgical candidate and family elected for conservative treatment with IV antibiotics rather than surgical intervention. Pt was treated with IV Zosyn and slowly responded to treatment. Diet was advanced and pt was seen by speech and swallow, who recommended a pureed (NDD1) diet with thin liquids. Nutrition recommended Ensure supplementation with meals. Pt continues to experience mild abdominal pain, but no significant nausea, vomiting, or diarrhea. Has been tolerating a full solid diet for the past few days. Was seen and evaluated by General surgery yesterday and cleared from a surgical standpoint for discharge. Physical therapy recommended short-term rehab for optimal strength and conditioning, and pt will be discharged to [facility]. She has completed a full course of antibiotics and will not need any new medications upon discharge. Of note, pt continues to be a full code. Pt also with advanced dementia at baseline; was overall calm and cooperative without any behavioral disturbances. Additional details concerning hospital stay as listed below. 84-year-old female, Brazilian-speaking only, with a past medical history of CHFrEF, insomnia, GERD, dementia here with abdominal pain and found to have perforated acute diverticultis and sepsis, has thus far declined surgery. Diverticulitis of colon with perforation/ Pneumoperitoneum Sepsis - resolved Seen by Dr. Ramirez and offered surgery but family declined in favor of conservative care with IV Abx Currently no significant N/V/D/abdominal pain Treated with full course of IV Zosyn; BCx negative after 5 days Pt cleared for discharge by Surgery; abd has been benign Tolerating a full diet; pt without lower dentures, NDD1 pureed diet with thin liquids per CLASSIFICATION AND TREATMENT DIRECTOR recommendations Possible aspiration pneumonia Right upper lobe ground-glass opacity Treated with Zosyn as above Not requiring supplemental O2 Chronic HFrEF, compensated. No evidence of acute exacerbation Dementia without behaviors No evidence of delirium Continue donepezil, mirtazapine, sertraline GERD Continue pantoprazole Time Attestation Discharge Coordination Time (in mins): 35 Quality: Safe Use of Opioids Does Pt have an Active Cancer Diagnosis on the Problem List?: No Quality: Stroke Does the patient have a stroke diagnosis?: No Physical Exam Exam: Exam: General: AOx1, no acute distress Resp: CTA bilaterally CVS: S1, S2, RRR GI: +BS, no distention, mild central abd tenderness Skin: Warm, dry Neuro: Cranial nerves II-XII grossly intact bilaterally. Motor grossly intact bilaterally Extremities: No edema Psych: Pleasantly confuesed Vital Signs: Vital Signs: Last Vital Signs Temp 97.2 F 05/12/25 16:05 Pulse 64 05/12/25 16:05 Resp 18 05/12/25 16:05 BP 129/62 05/12/25 16:05 Pulse Ox 95 05/12/25 16:05 O2 Del Method Room Air 05/12/25 16:05 BMI result Body Mass Index 24.4 DS: Data Data Completed and Pending Completed studies during hospitalization [Text1]: Procedures Repair Scalp Skin, External Approach (01/13/22) Labs on day of discharge: Laboratory Results - last 24 hr 05/12/25 06:03 Sodium 145 Potassium 3.6 Chloride 107 Carbon Dioxide 30 H Anion Gap 12 BUN 11 Creatinine 0.88 Estim Creat Clear Calc 36.1 Estimated GFR > 60 Random Glucose 109 Calcium 9.1 Discharge Plan Discharge Anticipated Discharge Date/Time: 05/12/25 16:14 Patient Disposition: Xfer SNF Discharge Diagnosis: Acute diverticulitis with microperforations Referrals: [facility] [Outside] - 1 Week Referral Note: TRANSFER FOR SHORT TERM REHAB Center,[facility] [Primary Care Provider, Medical] - 1 Week Discharge Medications: Continued donepezil 10 mg tablet 1 tab PO BEDTIME mirtazapine 45 mg tablet 1 tab PO BEDTIME sertraline 50 mg tablet 50 mg PO QAM multivitamin Tablet 1 tab PO DAILY cholecalciferol (vitamin D3) [Vitamin D3] 50 mcg (2,000 unit) capsule 50 mcg PO DAILY pantoprazole 40 mg tablet,delayed release (DR/EC) 40 mg PO BID@0630,1630 Discharge Orders: Discharge Order (Routine); Ordered 05/12/25 Ordered By: Uma Back Activity on Discharge: As tolerated Stand Alone Forms: Patient Portal Discharge page Print Language: Brazilian Care Plan Goals: See below Health Concerns: Diverticulitis with a perforation Pneumoperitoneum Sepsis Aspiration pneumonia Generalized weakness Plan of Treatment: You were admitted to the hospital for acute diverticulitis with microperforations. You were seen and evaluated by General surgery who offered surgical intervention, but after discussion with family you and your family elected for conservative care with IV antibiotics. You were treated with a full dose of IV Zosyn. Blood cultures were negative. Your symptoms improved and your diet was advanced and your now tolerating a regular diet. You were seen and evaluated by speech who suggested that you be on a pureed diet (NDD1) with thin liquids. Concern was also for possible aspiration pneumonia for which you were being covered with IV Zosyn. Physical therapy recommended short-term rehab, and you will be discharged for rehabilitation of strength and conditioning. You have completed a full course of antibiotics and will not be discharged on any medication changes. You should continue all of your other home medications. Assessment: See discharge summary
--- NOTE | 2025-05-12 17:45 | MHC.SL.SWA ---
Speech Pathologist Impression: Risk of Aspiration Due to: Dysphasia Diet Status: Recommend continue on PUREE (NDD1) with THIN liquids, pills crushed in puree, direct supervision at meals Liquid Consistency and Strategies for Safe Swallow: Liquid Intake Recommendation: Thin Liquid Intake Strategies: Solid Food Consistency: Dietary Recommendations: Pureed (NDD1) Additional Modifications to Solid Foods: Oral Medication Intake: Crushed with Puree Please contact the pharmacy regarding appropriate crushable or liquid drug formulations that are available whenever modified delivery is recommended. Compensatory Strategies and Precautions to be Taken for Safe Swallow: Sitting Upright (90 deg) Liquids from Cup Liquids from Straw Small Bites and Sips Alternate Liquids/Solids Supervision While Eating and Drinking for Safe Swallow: Direct Supervision (1:1) Foods to Avoid: Swallowing Recommended Treatments: Compens. Strategy Educat. Recommendation for Speech: Inpatient Speech Therapy Comment: Patient seen at breakfast, communicated with in Jordanian, youngest son present in room Patient was seated in chair beside bed, had eaten a few bites from meal which came in take out container, and protested she did not want more. Patient c/o stomach hurt. AUTHORIZATION MANAGER noted food was cold, offered to heat it up and then did so. With food now warmed, patient took several more bites of egg independently and ate about 1/2 of the eggs on tray. Patient also sipped from coffee cup present, with no difficulties. Patient ate at most 1/4 of meal , but was clearly more motivated when food was at expected temperature. Recommend continue on PUREE (NDD1) with THIN liquids, pills crushed in puree, direct supervision at meals Frequency/Duration: Followup as indicated Date Range for Service Req: Timeline to reassess: Cosmetology Educator Clinican/Clinical Fellow: No Supervisory Statement: I have reviewed and agree with the student/clinical fellow's documentation: N/A Speech Language Pathologist: Frances Washington M.A., CCC-AUTHORIZATION MANAGER
== END 2025-05-12 17:52 | disposition skilled nursing facility (03) | DRG 871 ==
LOC: HO.ED 19:19 → HO.EDOVER 20:41 → HO.S3 05-04 04:39
PROVIDERS: Hospitalist; Nurse Practitioner Family; Physician Assistant Medical; Admitting Provider Internal Medicine; Emergency Provider Emergency Medicine; PCP General Practice; Visit Provider Student in an Organized Health Care Education/Training Program
DX: A41.9 Sepsis, unspecified organism (principal); J69.0 Pneumonitis due to inhalation of food and vomit; K57.20 Diverticulitis of large intestine with perforation and abscess without bleeding; I50.22 Chronic systolic (congestive) heart failure; I11.0 Hypertensive heart disease with heart failure; E87.6 Hypokalemia; G30.9 Alzheimer's disease, unspecified; F02.80 Dementia in other diseases classified elsewhere, unspecified severity, without behavioral disturbance, psychotic disturbance, mood disturbance, and anxiety; R10.9 Unspecified abdominal pain; Z20.822 Contact with and (suspected) exposure to COVID-19; Z79.899 Other long term (current) drug therapy
CPT/HCPCS: 36415; 71045; 74018; 74177; 80048; 80053; 81001; 83605; 83690; 83735; 84484; 85025; 87040; 87502; 87635; 87651; 92526; 92610; 93005; 97162; 99285; J0131; J0696; J1644; J2270; J2543; J3480; J7120; Q9967

== ENCOUNTER → 2025-05-03 13:26 | Outpatient (BNV) | payer OTHER, SELFPAY | PROVIDERS: Admitting Provider Internal Medicine; Emergency Provider Emergency Medicine; Visit Provider Internal Medicine | DX: I51.7 Cardiomegaly (principal); I49.9 Cardiac arrhythmia, unspecified | CPT/HCPCS: 93010 ==

== ENCOUNTER → 2025-05-03 13:36 | Outpatient (BNV) | payer OTHER, SELFPAY | PROVIDERS: Emergency Provider Emergency Medicine; Visit Provider Radiology Diagnostic Radiology | DX: K57.32 Diverticulitis of large intestine without perforation or abscess without bleeding (principal); K76.0 Fatty (change of) liver, not elsewhere classified; I70.0 Atherosclerosis of aorta; I51.7 Cardiomegaly; R91.8 Other nonspecific abnormal finding of lung field | CPT/HCPCS: 71045; 74177 ==

== ENCOUNTER 2025-05-03 20:33 | Outpatient (BNV) | payer OTHER, SELFPAY | END 2025-05-08 08:20 | PROVIDERS: Admitting Provider Internal Medicine; Emergency Provider Emergency Medicine; Visit Provider Radiology Diagnostic Radiology | DX: R14.0 Abdominal distension (gaseous) (principal) | CPT/HCPCS: 74018 ==

== ENCOUNTER → 2025-05-03 20:33 | Outpatient (BNV) | payer OTHER, SELFPAY | PROVIDERS: Admitting Provider Internal Medicine; Emergency Provider Emergency Medicine; Visit Provider Nurse Practitioner Family | DX: I42.9 Cardiomyopathy, unspecified (principal); I50.9 Heart failure, unspecified; A41.9 Sepsis, unspecified organism; G30.9 Alzheimer's disease, unspecified; F02.80 Dementia in other diseases classified elsewhere, unspecified severity, without behavioral disturbance, psychotic disturbance, mood disturbance, and anxiety; J84.9 Interstitial pulmonary disease, unspecified; K57.20 Diverticulitis of large intestine with perforation and abscess without bleeding; K66.8 Other specified disorders of peritoneum | CPT/HCPCS: 99223; 99232; 99233; 99239; 99499 ==

== ENCOUNTER → 2025-05-03 20:33 | Outpatient (BNV) | payer OTHER, SELFPAY | PROVIDERS: Admitting Provider Internal Medicine; Emergency Provider Emergency Medicine | DX: K57.20 Diverticulitis of large intestine with perforation and abscess without bleeding (principal) | CPT/HCPCS: 99232; 99499 ==

== ENCOUNTER 2025-07-01 12:39 | Outpatient (AMB) | payer OTHER, SELFPAY ==
--- NOTE | 2025-07-01 12:50 | MHC.OFFVIS ---
Vital Signs 07/01/25 12:57 Height 4 ft 11 in Weight 122 lb BMI 24.6 BP 142/72 H Blood Pressure Location Lt brachial Position Sitting Pulse 74 Pulse Source Pulse Oximeter Pulse Oximetry (%) 95 Oxygen Delivery Method Room Air Intake Visit Reasons: Chronic abd pain mgmt. 6 mos. Intake Note: Est pt for mgmt of GERD w/ chronic abd pain. CC; C.O. recent diverticulitis episode which caused her to be hospitalized. Pt did receive abx therapy which seems to have helped. Pt does still complain of occasional LUQ pain. No additional concerns or new sx. [employer] Required: Yes [employer] Services: [employer] Offered & Declined Accompanied by: Family/Other Allergies oxycodone (Percocet) Allergy (Mild, Verified 07/01/25 12:50) denies HPI HPI Chronic abd pain mgmt. 6 mos.: Details: Assessment & Plan (1) Right sided abdominal pain: Code(s): R10.9 - Unspecified abdominal pain Category: Medical (2) Levoscoliosis of thoracic spine: Code(s): M41.84 - Other forms of scoliosis, thoracic region Category: Medical (3) Esophageal dysmotility: Comment: Rather severe on barium swallow Code(s): K22.4 - Dyskinesia of esophagus Category: Medical (4) GERD (gastroesophageal reflux disease): Code(s): K21.9 - Gastro-esophageal reflux disease without esophagitis Category: Medical (5) Thoracic back pain: Code(s): M54.6 - Pain in thoracic spine Category: Medical (6) Compression deformity of vertebra: Comment: Thoracic T12 Code(s): M43.9 - Deforming dorsopathy, unspecified Category: Medical (7) Severe scoliosis: Code(s): M41.9 - Scoliosis, unspecified Category: Medical Plan Romanian #[employer] She is here today with her son and dtr in law who give the hx. She continues on protonix bid and sucralfate. I explain that I feel the pain is radicular from her back pain. This is especially true since she had no effect from the bentyl. I advise they can stop it, but if they feel it is giving any benefit I am not adverse to continuing it. I review the XR, she is seeing a specialist at [address] [place] [address] for a neck injection, so I advise them to discuss the thoracic pain with this specialist as well. They should be able to see the XR. They have given her Tylenol with good effect and ask for an RX I will give for now but this should be taken over by the PCP going forward. ROV 6 mos. Medications: New acetaminophen 500 mg PO QID PRN 90 caps 3RF pain M54.6 - Pain in thoracic spine bisacodyl (Dulcolax (bisacodyl)) 10 mg (2 x 5 mg) PO BEDTIME PRN 60 tabs 3RF constipation 30 days Refilled pantoprazole 40 mg PO BID 60 tabs 6RF K21.9 - Gastro-esophageal reflux disease without esophagitis, R13.10 - Dysphagia, unspecified CT ABD AND PELVIS [facility] 06/19/2025 at [facility] FINDINGS: Solutions Engineer View Findings, Lines and Tubes: None. Visualized Chest: Partially visualized filling defect in the subsegmental branches of one of the pulmonary vessels, likely one of the pulmonary arteries (). Subpleural interstitial fibrotic changes to the lung bases include mild traction bronchiectasis and reticulations. Mild cardiomegaly. No pericardial effusion. Diaphragm: Normal. Liver: Diffuse low-attenuation throughout the liver parenchyma consistent with hepatic steatosis. No evidence of mass. Gallbladder: Absent consistent with prior cholecystectomy. Bile ducts: No biliary ductal dilation. Spleen: Normal. Pancreas: Normal. Adrenal glands: Normal. Kidneys and ureters: No hydronephrosis, stones, or suspicious masses. Mild cortical scarring in the lower pole of the left kidney. Bladder: Underdistended and grossly unremarkable. Reproductive organs: Unremarkable. Stomach, small bowel, and large bowel: The stomach is normal. The small bowel is normal. No bowel obstruction. Pancolonic diverticulosis. Subtle wall thickening and pericolonic fat stranding around a loop of sigmoid colon (/, 94/201). There is mild ill-defined soft tissue thickening along the sigmoid mesocolon with associated fat stranding, and loss of fat plane with the sigmoid colon best seen on axial image 94, correlating with 70, which is new compared to the 12/22/2024 exam. Imaging findings may be seen with pericolonic phlegmon without definitive abscess or could be seen with a contained prior perforation (67/202). No evidence of extraluminal air.. Appendix: Normal. Peritoneum and retroperitoneum: No ascites or pneumoperitoneum. No omental or mesenteric lesions. Ill-defined fat stranding along the left pelvic sidewall adjacent to the sigmoid colon (97/201). Lymph nodes: No enlarged lymph nodes. Blood vessels: Moderate atherosclerotic vascular calcification. No aortic aneurysm. No evidence of venous thrombosis. Abdominal and pelvic wall: Unremarkable. Bones: Degenerative changes with unchanged compression deformity of T12. Unchanged S-shaped scoliosis of thoracolumbar spine. Chronic deformity of the right inferior pubic ramus. IMPRESSION: Partially visualized filling defect in one of the subsegmental branches of the pulmonary vessels, likely pulmonary artery, in the right lower lobe. Findings concerning for pulmonary embolus. Recommend dedicated CTA chest for further evaluation. Sigmoid colon diverticulitis with ill-defined adjacent soft tissue thickening along the sigmoid mesocolon and adjacent fat stranding, may represent mild phlegmon versus sequela of prior contained perforation. No drainable fluid collection to suggest abscess. The impression above was relayed to Dr. Richardson by Dr. Lavonne Duron over the phone on 06/19/2025 at 2:17 AM. I have personally reviewed the images and I agree with this report. WSN: [id number] Ordering Physician: Jb Garsia CT CHEST 06/18/2025 [facility] RESULT: CT Angio Chest CT Angio Chest INDICATION: Hx of Present Illness: Pt c o abd pain x 2 months, worse x 2 days, seen at [facility] with perforation 9 14. Pt also c o L shoulder pain for a while , denies any fall trauma. Hx dementia, burkinan speaking only. Family reports polydypsia; Reason: PE suspected, Intermediate prob, positive D-dimer,; Clinical Question(s): Pulmonary Embolism; TECHNIQUE: Spiral CTA of the chest was performed after rapid IV contrast administration without cardiac gating, triggered by an AURY on the main pulmonary artery. Images are formatted in multiple planes using 2-D multiplanar and 3-D maximum intensity projection. 100 cc of Isovue 300 100cc vials was administered intravenously. Weight-based protocol using automatic tube modulation was used to optimize exposure parameters. CTDIvol Body: 17.63 mGy, DLP Body: 332 mGy*cm. COMPARISONS: CT abdomen and pelvis from earlier today ANGIOGRAPHIC FINDINGS: Moderate respiratory motion artifacts in the lung bases limits evaluation of the small pulmonary arteries in this region. Pulmonary embolism noted in several segmental and subsegmental branches of the right lower lobe pulmonary arteries. Mildly enlarged pulmonary arteries, which may indicate pulmonary arterial hypertension. No interventricular septal bowing. Reflux into the IVC is present. Mild atherosclerotic calcification of the aorta without acute abnormality on this study performed without cardiac gating. Mild aneurysmal dilatation of the ascending thoracic aorta, measuring up to 4.4 x 4.4 cm in diameter. Tortuous thoracic aorta. Bovine aortic arch with mild ectasia and tortuosity of the proximal great vessels. NON-ANGIOGRAPHIC FINDINGS: Solutions Engineer view findings, lines and tubes: None. Trachea and airways: Patent without evidence of tracheal or endobronchial lesion. Lungs and pleura: Mild bibasilar atelectasis. Moderate respiratory motion artifact, especially in the lung bases. No no definite lung nodule or mass. Focal consolidation.. No effusion or pneumothorax. Mediastinum and tiffany: No mass or hematoma. No mediastinal or hilar lymphadenopathy. No esophageal abnormality. Partially imaged thyroid is unremarkable. Heart: Moderate cardiomegaly. Fluid in the superior pericardial recess measuring slightly greater than fluid attenuation, 32-45 Hounsfield units. Mild pericardial thickening along the left lateral heart border, also seen on prior CT abdomen studies from 2019 No coronary arterial calcifications. Chest wall soft tissues: No acute abnormality. Diaphragm: Intact. Upper abdomen: No significant abnormality. Bones: Healed right anterior lower rib fractures. No acute abnormality.. IMPRESSION: Pulmonary embolism in view segmental and subsegmental pulmonary arteries in the right lower lobe. Mild aneurysmal dilatation of the ascending thoracic aorta measuring up to 4.4 cm. Small amount of fluid in the superior pericardial recess measuring slightly greater than simple fluid attenuation. Mild pericardial thickening. Findings could be related to chronic pericarditis (no prior CT chest available for comparison) however cannot completely exclude mild hemopericardium. If the patient is symptomatic in the chest, may consider follow-up evaluation with CT angiogram of the chest with cardiac gating to exclude acute aortic pathology, in the setting of mild ascending aortic aneurysm Moderate cardiomegaly. Initial findings regarding the pulmonary embolism, was relayed to Malini Moreno MD by Dr. Lavonne Duron via [employer] with acknowledgement received on 06/19/2025 at 5:43 AM. Revised findings were discussed with Dr. Plata in the ED over the phone at approximately 8:20 AM on 06/19/2025. I have personally reviewed the images and I agree with this report. WSN: [id number] Ordering Physician: Malini Moreno TODAY'S VISIT Romanian # PFSH Medical History Chronic interstitial lung disease Alzheimer's dementia without behavioral disturbance Depression Chronic kidney disease, stage 2 (mild) Ascending aorta dilation CHF (congestive heart failure) Cardiomyopathy Diverticulitis of colon with perforation Malnourished Right sided abdominal pain Odynophagia Alzheimer disease Thoracic compression fracture Pubic bone fracture Closed fracture of iliac wing Closed rib fracture GERD (gastroesophageal reflux disease) HTN (hypertension) Dementia Diabetes Surgical History H/O colonoscopy History of varicose vein ligation and stripping History of hysterectomy History of cholecystectomy Family History Sister Epilepsy Social History Household Members: None Housing: Apartment Do you presently have visiting nurse or other home services: No Patient Tobacco Use Status: Never used Tobacco Advance Directives Date on File: 02/06/22 service: No Current occupational status: disabled Review of Systems Const Denies fatigue, Denies fever(s), Denies night sweats, Denies poor appetite and Denies weight loss ENT Reports Normal hearing present, Denies dental pain, Denies dysphagia, Denies hearing loss, Denies mouth pain, Denies odynophagia, Denies throat swelling, Denies tongue swelling and Reports other (Dentition adequate) Card Reports no additional complaints Resp Reports no additional complaints GI Details: Reports abdominal pain, Denies melena, Denies bloating, Denies hematochezia, Denies constipation, Denies GI cramping, Denies dysphagia, Denies excessive flatus, Denies early satiety, Reports heartburn, Denies diarrhea, Denies nausea, Denies odynophagia, Denies vomiting and Denies hematemesis Musc Reports back pain Skin/Breast Denies pruritus, Denies lesions, Denies rash and Denies jaundice Neuro Reports Normal hearing present, Denies Abnormal speech present, Reports confusion and Reports memory loss Psych Reports confusion and Reports memory loss Endo Denies fatigue Aller/Immun Denies throat swelling and Denies tongue swelling Physical Exam Vital Signs: Last Vital Signs Pulse 74 07/01/25 12:57 BP 142/72 H 07/01/25 12:57 Pulse Ox 95 07/01/25 12:57 Oxygen Delivery Method Room Air 07/01/25 12:57 BMI result Body Mass Index 24.6 Const General: confusion Nutritional Appearance: well nourished and overweight Orientation/consciousness: confusion Limitations: language barrier and other limitations HEENT Head: Yes normocephalic and Yes atraumatic Eyes General: appearance normal, both eyes and all related structures Pupils: Equal, round and reactive pupils present Neck Neck: Yes normal visual inspection and Yes no lymphadenopathy Thyroid: Thyroid normal Resp Effort & Inspection: normal respiratory effort and able to speak in complete sentences Auscultation: clear to auscultation bilaterally Cardio Rate: regular rate Rhythm: regular rhythm Heart sounds: Normal, physiologic split S2 sound present Peripheral pulses: radial pulses present and posterior tibial pulses present GI Inspection: Yes distended, No Abdominal panniculus present and Yes obesity Palpation (GI): Soft to palpation, Tenderness to palpation present (GI) in the RUQ and periumbilically, no guarding, not rigid and No hepatosplenomegaly present Percussion: Yes normal to percussion Auscultation: normal bowel sounds Rectal Exam - Female: deferred Skin General skin exam: no rashes or lesions noted, turgor normal, skin not dry, no jaundice, No spider nevi and no striae Rashes: no rashes Nails: normal Neuro General: confusion Cranial nerves: Yes Equal, round and reactive pupils present and Yes Normal hearing present Speech: No Abnormal speech present Extrem General: Yes normal to inspection, No clubbing, No cyanosis and No edema Psych Appearance: grossly normal and well kempt Mental Status: other Speech and movement: Mute speech present Affect: normal affect Attitude: cooperative Thought process: Other thought process findings present Thought content: other Insight: Poor insight present (Psych) Judgement: Poor judgement present (Psych) Results Reviewed Results Reviewed: [place] ABD [place] [facility] [place] at [facility] FINDINGS: Solutions Engineer View Findings, Lines and Tubes: None. Visualized Chest: Partially visualized filling defect in the subsegmental branches of one of the pulmonary vessels, likely one of the pulmonary arteries (1/). Subpleural interstitial fibrotic changes to the lung bases include mild traction bronchiectasis and reticulations. Mild cardiomegaly. No pericardial effusion. Diaphragm: Normal. Liver: Diffuse low-attenuation throughout the liver parenchyma consistent with hepatic steatosis. No evidence of mass. Gallbladder: Absent consistent with prior cholecystectomy. Bile ducts: No biliary ductal dilation. Spleen: Normal. Pancreas: Normal. Adrenal glands: Normal. Kidneys and ureters: No hydronephrosis, stones, or suspicious masses. Mild cortical scarring in the lower pole of the left kidney. Bladder: Underdistended and grossly unremarkable. Reproductive organs: Unremarkable. Stomach, small bowel, and large bowel: The stomach is normal. The small bowel is normal. No bowel obstruction. Pancolonic diverticulosis. Subtle wall thickening and pericolonic fat stranding around a loop of sigmoid colon (67/, 94/201). There is mild ill-defined soft tissue thickening along the sigmoid mesocolon with associated fat stranding, and loss of fat plane with the sigmoid colon best seen on axial image 94, correlating with 70, which is new compared to the 12/22/2024 exam. Imaging findings may be seen with pericolonic phlegmon without definitive abscess or could be seen with a contained prior perforation (67/202). No evidence of extraluminal air.. Appendix: Normal. Peritoneum and retroperitoneum: No ascites or pneumoperitoneum. No omental or mesenteric lesions. Ill-defined fat stranding along the left pelvic sidewall adjacent to the sigmoid colon (97/201). Lymph nodes: No enlarged lymph nodes. Blood vessels: Moderate atherosclerotic vascular calcification. No aortic aneurysm. No evidence of venous thrombosis. Abdominal and pelvic wall: Unremarkable. Bones: Degenerative changes with unchanged compression deformity of T12. Unchanged S-shaped scoliosis of thoracolumbar spine. Chronic deformity of the right inferior pubic ramus. IMPRESSION: Partially visualized filling defect in one of the subsegmental branches of the pulmonary vessels, likely pulmonary artery, in the right lower lobe. Findings concerning for pulmonary embolus. Recommend dedicated CTA chest for further evaluation. Sigmoid colon diverticulitis with ill-defined adjacent soft tissue thickening along the sigmoid mesocolon and adjacent fat stranding, may represent mild phlegmon versus sequela of prior contained perforation. No drainable fluid collection to suggest abscess. The impression above was relayed to Dr. Richardson by Dr. Lavonne Duron over the phone on 06/19/2025 at 2:17 AM. I have personally reviewed the images and I agree with this report. WSN: [id number] Ordering Physician: Jb Garsia CT CHEST 06/18/2025 [facility] RESULT: CT Angio Chest CT Angio Chest INDICATION: Hx of Present Illness: Pt c o abd pain x 2 months, worse x 2 days, seen at [facility] [place]itis with perforation 9 14. Pt also c o L shoulder pain for a while , denies any fall trauma. Hx dementia, burkinan speaking only. Family reports polydypsia; Reason: PE suspected, Intermediate prob, positive D-dimer,; Clinical Question(s): Pulmonary Embolism; TECHNIQUE: Spiral CTA of the chest was performed after rapid IV contrast administration without cardiac gating, triggered by an AURY on the main pulmonary artery. Images are formatted in multiple planes using 2-D multiplanar and 3-D maximum intensity projection. 100 cc of Isovue 300 100cc vials was administered intravenously. Weight-based protocol using automatic tube modulation was used to optimize exposure parameters. CTDIvol Body: 17.63 mGy, DLP Body: 332 mGy*cm. COMPARISONS: CT abdomen and pelvis from earlier today ANGIOGRAPHIC FINDINGS: Moderate respiratory motion artifacts in the lung bases limits evaluation of the small pulmonary arteries in this region. Pulmonary embolism noted in several segmental and subsegmental branches of the right lower lobe pulmonary arteries. Mildly enlarged pulmonary arteries, which may indicate pulmonary arterial hypertension. No interventricular septal bowing. Reflux into the IVC is present. Mild atherosclerotic calcification of the aorta without acute abnormality on this study performed without cardiac gating. Mild aneurysmal dilatation of the ascending thoracic aorta, measuring up to 4.4 x 4.4 cm in diameter. Tortuous thoracic aorta. Bovine aortic arch with mild ectasia and tortuosity of the proximal great vessels. NON-ANGIOGRAPHIC FINDINGS: Solutions Engineer view findings, lines and tubes: None. Trachea and airways: Patent without evidence of tracheal or endobronchial lesion. Lungs and pleura: Mild bibasilar atelectasis. Moderate respiratory motion artifact, especially in the lung bases. No no definite lung nodule or mass. Focal consolidation.. No effusion or pneumothorax. Mediastinum and tiffany: No mass or hematoma. No mediastinal or hilar lymphadenopathy. No esophageal abnormality. Partially imaged thyroid is unremarkable. Heart: Moderate cardiomegaly. Fluid in the superior pericardial recess measuring slightly greater than fluid attenuation, 32-45 Hounsfield units. Mild pericardial thickening along the left lateral heart border, also seen on prior CT abdomen studies from 2019 No coronary arterial calcifications. Chest wall soft tissues: No acute abnormality. Diaphragm: Intact. Upper abdomen: No significant abnormality. Bones: Healed right anterior lower rib fractures. No acute abnormality.. IMPRESSION: Pulmonary embolism in view segmental and subsegmental pulmonary arteries in the right lower lobe. Mild aneurysmal dilatation of the ascending thoracic aorta measuring up to 4.4 cm. Small amount of fluid in the superior pericardial recess measuring slightly greater than simple fluid attenuation. Mild pericardial thickening. Findings could be related to chronic pericarditis (no prior CT chest available for comparison) however cannot completely exclude mild hemopericardium. If the patient is symptomatic in the chest, may consider follow-up evaluation with CT angiogram of the chest with cardiac gating to exclude acute aortic pathology, in the setting of mild ascending aortic aneurysm Moderate cardiomegaly. Initial findings regarding the pulmonary embolism, was relayed to Malini Moreno MD by Dr. Lavonne Duron via [employer] with acknowledgement received on 06/19/2025 at 5:43 AM. Revised findings were discussed with Dr. Plata in the ED over the phone at approximately 8:20 AM on 06/19/2025. I have personally reviewed the images and I agree with this report. WSN: [id number] Ordering Physician: Malini Moreno Assessment & Plan Assessment & Plan (1) Pulmonary embolism: Code(s): I26.99 - Other pulmonary embolism without acute cor pulmonale Category: Medical (2) Right sided abdominal pain: Code(s): R10.9 - Unspecified abdominal pain Category: Medical Plan She is here today with her son and daughter who are her primary caretakers given her advanced dementia. They tell me that she has been in the hospital twice since I last saw her, once here at [facility] where they diagnose diverticulitis, and then again at [facility]. When she was seen here at our facility it seems that they request a surgical consult to consider surgery for recurrent diverticulitis. They declined at that time. She is discharged antibiotics but her symptoms quickly returned and worsened. When she presented at [facility] they told her she did not yet needs surgery. Incidentally, on the CAT scan they saw a pulmonary embolism in the lower lung pulido. This prompted a chest CT angio. She was admitted, given antibiotics, and discharged now on Eliquis. She has not yet seen her primary care provider for follow-up. She continues to endorse generalized abdominal pain greater on the right side. Per her family's report her pain, after her hospitalization and treatment have only mildly improved. She is not having any diarrhea or rectal bleeding, as moving her bowels well. In the past me thought that this pain was radicular from her spinal pathology, now I can not help but wonder if there is a circulatory infarct contributing. Because of this I want to get a CT angio of the abdomen and pelvis. In the past she has failed multiple medications including dicyclomine, imipramine, etc.. This makes me less suspicious that this is a bowel pathology but it is difficult to evaluate given her advanced dementia. I am uncertain what to do next, and if the CT angio does not turn up any pathology we may want to have [address] in for a 2nd opinion. The patient is somewhat reluctant to undergo colonoscopy because the last 1 she had was at [facility] and apparently they perforated her colon which resulted in a long ICU stay. However, the finding of pancolitis on the [facility] CT seems to indicate something more than simple sigmoid diverticulitis. It is also suspicious that this does not seem to be improving with antibiotics and multiple rounds. Return office visit after CT angio Orders: Orders CT angio abdomen pelvis Today I26.99 - Other pulmonary embolism without acute cor pulmonale, R10.9 - Unspecified abdominal pain Coding Level of Care Code Est Pt Level 4 (63392) Diagnoses Pulmonary embolism I26.99 Right sided abdominal pain R10.9 Time Spent (min) 37
[2025-07-01 12:57] VITALS: BP 142/72; PULSE 74; O2SAT 95; BMI 24.6
--- OUTSIDE RECORDS SUMMARY | 2025-07-01 15:18 | XMS_ITS | Encounter Summary ---
Author Organization [facility] [employer] [facility] Address [address] [place] [address] Care Team Providers Care Communications Intern Name Role Phone Marisabel Delaney MD Primary Care Provider [phone] Encounter Details Date Type Department Care Team (Late st Contact Info) Description 11/30/2022 Orders Only [facility] [address] [place] [address] [phone] Marisabel Delaney MD [address] [place] [address] [phone] Colitis (Primary Dx) Social History Tobacco Use [...] Care Team (Late st Contact Info) Description 07/03/2025 1:00 PM EST Office Visit [facility] [address] [place] [address] [phone] Gabbi Salcido MD [address], [place] [phone] documented as of this encounter Visit Diagnoses Diagnosis Colitis- Primary Other and unspecified noninfectious gastroenteritis and colitis documented in this encounter Care Teams Communications Intern Relationship Specialty Start Date End Date Marisabel Delaney MD [address] [place] [address] PCP - General Family Medicine 04/14/22 Juan 06/05/25 documented as of this encounter
--- OUTSIDE RECORDS SUMMARY | 2025-07-01 15:18 | XMS_ITS | Clinical Summary ---
Author Organization [facility] Address [address] [place] [address] Phone Care Team Providers Care Patents Examiner Name Role Phone Inés Frances Primary Care [...] age to complete this topic Insurance [facility] ([id number]) [facility] ([id number]) Care Teams Patents Examiner Relationship Specialty Start Date End Date Frances Conte PCP - General Family Medicine 07/11/21
--- OUTSIDE RECORDS SUMMARY | 2025-07-01 15:18 | XMS_ITS | Clinical Summary ---
Author Organization [employer] Address [address] [place] [address] Care Team Providers Care Meteorology Teacher Name Role Phone Marisabel Delaney MD Primary Care Provider [phone] Allergies Active Allergy Reactions Criticality Noted Date Comments Acetaminophen 03/20/2013 Hydrocodone-Acetaminophen 11/17/2021 Oxycodone-Acetaminophen Itching 03/20/2013 Other reaction(s): HIVES Vancomycin 11/17/2021 Medications Diclofenac Sodium 1 % gel Apply topically. 021 Active donepezil (Aricept) 10 MG tablet Take 10 mg by mouth at bedtime. 023 Active mirtazapine (Remeron) 45 MG tablet Take 45 mg by mouth at bedtime. 023 Active Blood Pressure Monitoring (Blood Pressure Cuff) miscIndications :Primary hypertension 1 each in the morning. 1 each 023 Active pantoprazole (ProtoNix) 40 MG EC tablet Take 40 mg by mouth 2 times daily. 024 Active Multiple Vitamin (Multivitamin) tablet TAKE 1 TABLET BY MOUTH EVERY MORNING WITH FOOD 90 tablet 3 024 Active sertraline (Zoloft) 50 MG tabletIndicatio ns:Acute depression Take 50 mg by mouth in the morning. 025 Active Bisacodyl EC 5 MG EC tabletIndicatio ns:Constipation , unspecified constipation type Take 1 tablet (5 mg) by mouth if needed each day for constipation. Do not crush, chew, or split. 30 tablet 3 025 Active sucralfate (Carafate) 1 GM/10ML suspension GIVE 10 ML BY MOUTH EVERY TWELVE HOURS NEEDED FOR PAIN (STOMACH) 414 mL 3 025 Active Eliquis 5 MG tablet Take 5 mg by mouth 2 times daily. Active lidocaine (Lidoderm) 5 % patch APPLY 1 PATCH TOPICALLY TO SKIN, LEAVE ON FOR 12 HOURS AND OFF FOR 12 HOURS DIRECTED 2024 Discontinued(R eorder (will not trigger notification to Pharmacy)) sucralfate (Carafate) 1 GM/10ML suspension Take 10 mL (1 g) by mouth every 12 (twelve) hours if needed (stomach pain). 414 mL 3 2024 Discontinued methocarbamol (Robaxin) 500 MG tabletIndicatio ns:Degenerative disc disease, cervical Take 1 tablet (500 mg) by mouth at bedtime. 60 tablet 3 2024 Discontinued(T herapy completed) Bisacodyl EC 5 MG EC tabletIndicatio ns:Constipation , unspecified constipation type TAKE 2 TABLETS BY MOUTH EVERY DAY AT BEDTIME NEEDED FOR CONSTIPATION 2024 Discontinued(R eorder (will not trigger notification to Pharmacy)) lidocaine (Lidoderm) 5 % patchIndication s:Diverticular disease Apply 1 patch topically if needed each day for mild pain. Remove & discard patch within 12 hours or as directed by MD. 30 patch 2024 Discontinued(M ed list cleanup (will not trigger notification to Pharmacy)) Acetaminophen Extra Strength 500 MG tablet Take 1 tablet by mouth every 6 (six) hours if needed for pain. 2024 Discontinued(P atient refused) amoxicillin-cla vulanate (Augmentin) 500-125 MG tablet Take 1 tablet by mouth 2 times daily. 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 Advised to advance diet as tolerated, favor liquid and soft diet (can have boost supplement bid) FU with GI on 07/01/25 Her son is instructed to take her to ED if she develops fever, worsening abdominal pain or distension, decreased PO intake, back stools or postprandial vomiting. 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 Currently with no behavioral issues, I advised to taper slowly down to off lorazepam that she was discharged with from SNF (her son brought in the medication bottle) and follow-up with psychiatrist. We discussed about risk of potential benzo withdrawals, increased anxiety, seizures, nausea, palpitations. May need short-term prescription for lorazepam to continue taper it to off down until she sees psych Assessment & Plan (11/19/2024 9:55 AM EDT): Continue Donepezil Family declines geriatrics consult at this time Her behaviors are not disruptive, but repetitive and perseverating Focus on quality of life, day/night sleep schedule Has METROPOLITAN EDITOR hours daily for 2-4 hours Assessment & Plan (02/10/2024 12:58 PM EDT): Continue Donepezil, consider additional agents? Family declines geriatrics consult at this time Her behaviors are not disruptive, but repetitive and perseverating Focus on quality of life, day/night sleep schedule Has METROPOLITAN EDITOR hours daily for 2-4 hours Assessment & [...] imaging to treatment/watch and wait Referred to [facility] ER and an expect was called Assessment & Plan (11/19/2024 9:57 AM EDT): Recommend drinking more liquids Call [facility] gastroenterology to make a [...] & Plan (05/18/2023 9:06 AM EDT): Continue igroyl and Fatou prn GI referral CT abdpelvis [...] 2021 Diverticular disease 11/17/2021 Assessment & Plan (06/30/2025 9:36 AM EST): See above, will refer to cutter aluminum sheet to educate family re diet Assessment & Plan (09/21/2023 6:21 AM EST): [...] 6:21 AM EST): Upcoming thyroid US at [facility] Congestive heart failure 03/20/2013 [...] Encounters Date Type Department Care Team Description 07/01/[address] [address] Marisabel Delaney MD Durable Medical Equipment (DME: Boost) 06/25/2025 Patient Outreach [facility] [address], [place] [phone] Marisabel Delaney MD Transition Of Care (Tcm) (HDF scheduled ) 06/21/[address] [address] Marisabel Delaney MD 06/09/2025 10:45 AM EDT Office Visit [address] [address] Teresita Zuluaga MD 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 (Primary Dx); Diverticular disease; Constipation, unspecified constipation type; Encounter for immunization; 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, psychotic disturbance, mood disturbance, or anxiety (HCC) 06/09/2025 Travel 06/08/[address] [address] Marisabel Delaney MD Chart Prep 06/05/2025 Patient Outreach [address] [address] Marisabel Delaney MD Transition Of Care (Tcm) (RE: DISCHARGE SUMMARY FROM [facility]) 05/28/2025 Patient Outreach [address] [phone] Marisabel Delaney MD Pre-visit Planning (HDF- scheduled and SDOH screening will need to be completed in office. ) 05/03/2025 Orders Only GENERIC EXTERNAL DATA DEPARTMENT Provider, Generic External Data 04/09/2025 1:30 PM EDT Office Visit [facility] ADULT DENTAL [address] [place] [phone] Asad Duffy DMD from Last 3 Months Immunizations Immunization Administration Dates Next Due Influenza High-dose Quadriva lent Preservative Free 07/16/2023,06/05/2022,07/27/2020 Influenza Whole 06/13/2012 Influenza, High Dose Seasona l, Preservative Free 06/09/2025,06/06/2017,08/22/2016 Influenza, IIV3, injectable 06/12/2019,1 09/14/2017,06/10/2013,05/29,06/30/2011,06/20/2011,06/16/2010 ,09/01/2009 Influenza, [...] Sign Reading Time Taken Comments Blood Pressure 140/72 06/09/2025 10:50 AM EDT Pulse 78 06/09/2025 10:50 AM EDT Temperature 36.4 C (97.5 F) 06/09/2025 10:50 AM EDT Respiratory Rate 14 06/09/2025 10:50 AM EDT Oxygen Saturation 98% 03/23/2025 4:36 PM EDT Inhaled Oxygen Concentration - - Weight 57 kg (125 lb 9.6 oz) 06/09/2025 10:50 AM EDT Height 149.9 cm (4' 11 ) 06/09/2025 10:50 AM EDT Body Mass Index 25.37 06/09/2025 10:50 AM EDT Plan of Treatment Upcoming Encounters Date Type Department Care Team (Late st Contact Info) Description 07/03/2025 1:00 PM EST Office Visit [facility] MEDICINE [address] [place] [phone] Gabbi Salcido MD [address] [place] [address] Health Maintenance Due Date Last Done Comments Dental Prophylaxis 1940 Dental X-Ray: Bitewings 1940 HIB Vaccines (1 of 1 - Risk 1-dose series) 03/08/1940 Meningococcal Vaccine (1 - Risk 2-dose series) 1940 Meningococcal B Vaccine (1 of 4 - Increased Risk) 1948 RSV Patients and Patients Aged 60 years or older (1 - 1-dose 75+ series) 2013 Zoster Vaccines (2 of 3) 11/13/2014 09/18/2014 Dental Oral Exam 03/20/2022 09/19/2021, 06/2019, 01/16/2018 Lipid Panel 05/16/2024 05/16/2023, 07/04/2021 COVID-19 Vaccine ( - season) 2025 03/14/2022, 10/28/2020, 10/01/2020 Alcohol/Substance Use Screening 08/15/2025 08/15/2024 Depression Screening 08/15/2025 08/15/2024, 08/15/20 24 Eye Exam 09/17/2025 09/17/2024, 08/21, 09/17/2024, Additional history exists Diabetes: Hemoglobin A1C 09/23/2025 025, 08/15/2024, 09/19/2023, Additional history exists SDOH Screening 03/23/2026 03/23/2025 Tobacco Screening 06/09/2026 06/09/2025 Dental X-Ray: Full Mouth 04/10/2028 025, 09/19/2021, 01/16/2018 DTaP/Tdap/Td Vaccines (4 - Td or Tdap) 01/14/2032 01/13/2022, 04/07/2020, 08/22/2016, Additional history exists Pneumococcal Vaccine: 50+ Years Completed 04/07/2020, 09/01/2009, 08/20/2009, Additional history exists Diabetes: Urine Protein Screening Discontinued 05/17/2023, 07/04/2021 Influenza Vaccine Completed 06/09/2025, , 06/05/2022, Additional history exists Diabetes: Foot Exam Discontinued HPV Vaccines Aged Out No longer eligi [...] Procedure Name Priority Date/Time Associated Diagnosis Comments XR KUB AND UPRIGHT 2 VIEWS Routine 05/08/2025 8:45 AM EDT LACTIC ACID Routine 05/03/2025 5:45 PM EDT HIGH SENSITIVITY TROPONIN I Routine 05/03/2025 5:[address] ABDOMEN PELVIS W CONTRAST Routine 05/03/2025 5:07 PM EDT URINALYSIS, COMPLETE, WITH REFLEX TO CULTURE Routine 05/03/2025 3:37 PM EDT URINALYSIS WITH REFLEX MICROSCOPIC Routine 05/03/2025 3:37 PM EDT XR CHEST 1 VIEW Routine 05/03/2025 3:07 PM EDT HIGH SENSITIVITY TROPONIN I Routine 05/03/2025 1:39 PM EDT STREP A NUCLEIC ACID Routine 05/03/2025 1:39 PM EDT LIPASE Routine 05/03/2025 12:23 PM EDT MAGNESIUM Routine 05/03/2025 12:23 PM EDT COMPREHENSIVE METABOLIC PANEL Routine 05/03/2025 12:23 PM EDT CASE PRESENTATION, DETAILED AND EXTENSIVE TREATMENT PLANNING Routine 04/09/2025 1:30 PM EDT PANORAMIC RADIOGRAPHIC IMAGE Routine 04/09/2025 1:30 PM EDT LIMITED ORAL EVALUATION - PROBLEM FOCUSED Routine 04/09/2025 1:30 PM EDT POCT GLYCATED HEMOGLOBIN, TOTAL Routine 03/23/2025 4:38 PM EDT Prediabetes ALBUMIN, RANDOM URINE W/CREATININE Routine 05/17/2023 11:08 AM EDT LIPID PANEL, STANDARD Routine 05/16/2023 2:30 PM EDT Type 2 diabetes mellitus with diabetic autonomic neuropathy, without long-term current use of insulin ([facility]) PERIODIC ORAL EVALUATION - ESTABLISHED PATIENT Routine 09/19/2021 12:00 AM EST from Last 3 Months or Most Recently Relevant to Health Maintenance Results * XR KUB and Upright 2 Views (05/08/2025 8:45 AM EDT) Anatomical Region Laterality Modality Radiographic Emilie ging 05/08/2025 8:45 AM EDT Narrative 05/08/2025 9:33 AM EDT [place] [address] XRay Report Signed Patient: Janice Lomeli MR#: [id number] : 1940 Acct:[id number] Age/Sex: 84 / F ADM Date: 05/03/25 Loc: .S3 368-[address]: Andrew Jimenez MD Ordering Physician: Andrew Jimenez MD Date of Service: 05/08/25 Procedure(s): XR KUB Accession Number(s): [id number] cc: [facility]; Andrew iJmenez MD Reason for Exam: abd distention EXAMINATION: XR ABDOMEN 1 VIEW (KUB) HISTORY: abd distention COMPARISON: Comparison is made with the prior examination dated 09/08/2016. FINDINGS: A single supine view of the abdomen is submitted. The bowel gas pattern is unremarkable, without evidence of mechanical obstruction. There are surgical clips in the right upper quadrant. No abnormal calcifications are identified. There are no abnormal soft tissue masses. There are old fractures of the right superior and inferior pubic rami. There is degenerative disc disease and levoscoliosis of the spine. XR/XR KUB IMPRESSION: Unremarkable bowel gas pattern. Electronically signed by: Fahad Murguia MD 05/08/2025 09:31 AM EDT RP Dictated By: Fahad Murguia MD Signed By: <Electronically signed by Fahad Murguia MD in OV> 05/08/25930 DD/ 4 TD/TT: 05/08/25854 Bacon Stringer: Procedure Note Donotmaryinterpreter, Image - 05/08/[address] [address] XRay Report Signed Patient: Mery Lomeli#: [id number] : 9Acct:[id number] Age/Sex: 84 / FADM Date: 05/03/25 Loc: .S3 368-[address]: Andrew Jimenez MD Ordering Physician: Andrew Jimenez MD Date of Service: 05/08/25 Procedure(s): XR KUB Accession Number(s): [id number] cc: [facility]; Andrew Jimenez MD Reason for Exam: abd distention EXAMINATION: XR ABDOMEN 1 VIEW (KUB) HISTORY: abd distention COMPARISON: Comparison is made with the prior examination dated 09/08/2016. FINDINGS: A single supine view of the abdomen is submitted. The bowel gas pattern is unremarkable, without evidence of mechanical obstruction. There are surgical clips in the right upper quadrant. No abnormal calcifications are identified. There are no abnormal soft tissue masses. There are old fractures of the right superior and inferior pubic rami. There is degenerative disc disease and levoscoliosis of the spine. XR/XR KUB IMPRESSION: Unremarkable bowel gas pattern. Electronically signed by: Fahad Murguia MD 05/08/2025 09:31 AM EDT RP Dictated By: Fahad Murguia MD Signed By: <Electronically signed by Fahad Murguia MD in OV> 05/08/25930 DD/ 4 TD/TT: 05/08/25854 Bacon Stringer: [facility] External Provider IMG XR PROCEDURES Edited Result - Final * Lactic Acid (05/03/2025 5:45 PM EDT) Lactic Acid 0.9 0.5 - 2.0 mmol/L [facility] 05/03/2025 5:45 PM EDT 05/03/2025 5:49 PM EDT us Generic External Data Provider LAB BLOOD ORDERAB LES Final Result Performing Organization Address City/[facility] Co de Phone Number [facility] [address] [place] [phone] * (ABNORMAL) High Sensitivity Troponin I (05/03/2025 5:16 PM EDT) Only the most recent of2 resultswithin the time period is included. TROPONIN I HIGH SENSITIVITY 25.6(H) <3.5 - 17.0 ng/L [facility] Comment:The [place] high sens itivity Troponin-I results should beused in conjunction with other diagnostic information suchas ECG, clinical observations and information, and patientsymptoms to aid in the diagnosis of [place]. 05/03/2025 5:16 PM EDT 05/03/2025 5:23 PM EDT Generic External Data Provider LAB BLOOD ORDERAB LES Final Result Performing Organization Address [facility] Co de Phone Number [facility] [address] [place] [phone] * CT Abdomen Pelvis w/ Contrast (05/03/2025 5:07 PM EDT) Anatomical Region Laterality Modality Body, Pelvis, Abdomen Computed T omography 05/03/2025 5:07 PM EDT Narrative 05/03/2025 5:08 PM EDT [address] [address] [address] Scan Report Signed with Janisenda Patient: Janice Lomeli MR#: [id number] : 1940 Acct:[id number] Age/Sex: 84 / F ADM Date: 05/03/25 Loc: HO.ED Attending Dr: Ordering Physician: Sonam Anderson PA-C Date of Service: 05/03/25 Procedure(s): CT abdomen pelvis w IV con Accession Number(s): [id number] cc: Sonam Anderson PA-C; [facility] Report Number: [id number]: Total DLP = 506.00 mGy-cm Reason for Exam: diffuse abd pain, significant RLQ pain ADDENDUM This document has been electronically signed by: Artie Shields MD on 05/03/2025 17:07:19 ADDENDUM: This report was discussed with Justin Carolina on May 03, 2025 17:14:00 EDT. This document has been electronically signed by: Rosie Mckinney on 05/03/2025 17:14:58 Addendum Dictated By: Artie Shields MD Addendum Signed By: <Electronically signed by Artie Shields MD in OV> 05/03/251714 Addendum Cosigned By: DD/ TD/TT: 05/03/25 CLINICAL HISTORY: diffuse abd pain, significant RLQ pain CT abdomen and pelvis with contrast Comparison: None provided Findings: The lung bases are clear. Cardiomegaly. Prior cholecystectomy. Hepatic steatosis. Mid to distal sigmoid colon pericolonic inflammatory changes with adjacent pneumoperitoneum, axial image number 449 of 667. [id number] calcified atherosclerotic disease of the abdominal aorta. Diverticulosis. The appendix within normal limits. Diverticulosis. No acute fracture. Lumbar levoscoliosis. IMPRESSION: 1. Sigmoid colon pericolonic inflammation with adjacent pneumoperitoneum; sigmoid diverticulitis with micro perforation. Clinical correlation suggested. 2. Hepatic steatosis. 3. Cardiomegaly. 4. Lvio-ay-vbefmchb calcified atherosclerotic disease of the abdominal aorta. 5. Prior cholecystectomy. This document has been electronically signed by: Artie Shields MD on 05/03/2025 17:07:19 Dictated By: Artie Shields MD Signed By: <Electronically signed by Artie Shields MD in OV> 05/03/251706 DD/ 06 TD/TT: 05/03/251706 Bacon Stringer: Procedure Note Rosie, Image - 05/03/[address] [address] [address] Scan Report Signed with Addenda Patient: Mery Lomeli#: [id number] : 9Acct:[id number] Age/Sex: 84 / FADM Date: 05/03/25 Loc: HO.ED Attending Dr: Ordering Physician: Sonam Anderson PA-C Date of Service: 05/03/25 Procedure(s): CT abdomen pelvis w IV con Accession Number(s): [id number] cc: Sonam Anderson PA-C; [facility] Report Number: [id number]: Total DLP = 506.00 mGy-cm Reason for Exam: diffuse abd pain, significant RLQ pain ADDENDUM This document has been electronically signed by: Artie Shields MD on 05/03/2025 17:07:19 ADDENDUM: This report was discussed with Justin Carolina on May 03, 2025 17:14:00 EDT. This document has been electronically signed by: Rosie Mckinney on 05/03/2025 17:14:58 Addendum Dictated By: Artie Shields MD Addendum Signed By: <Electronically signed by MD Jarod in OV> 05/03/251714 Addendum Cosigned By: DD/ TD/TT: 05/03/25 CLINICAL HISTORY: diffuse abd pain, significant RLQ pain CT abdomen and pelvis with contrast Comparison: None provided Findings: The lung bases are clear. Cardiomegaly. Prior cholecystectomy. Hepatic steatosis. Mid to distal sigmoid colon pericolonic inflammatory changes with adjacent pneumoperitoneum, axial image number 360 of 664. [id number]-[id number] calcified atherosclerotic disease of the abdominal aorta. Diverticulosis. The appendix within normal limits. Diverticulosis. No acute fracture. Lumbar levoscoliosis. IMPRESSION: 1. Sigmoid colon pericolonic inflammation with adjacent pneumoperitoneum; sigmoid diverticulitis with micro perforation. Clinical correlation suggested. 2. Hepatic steatosis. 3. Cardiomegaly. 4. Vdeh-bx-frwdnlrk calcified atherosclerotic disease of the abdominal aorta. 5. Prior cholecystectomy. This document has been electronically signed by: Artie Shields MD on 05/03/2025 17:07:19 Dictated By: Artie Shields MD Signed By: <Electronically signed by Artie Shields MD in OV> 05/03/251706 DD/ 06 TD/TT: 05/03/251706 Bacon Stringer: [facility] External Provider IMG CT PROCEDURES Edited Result - Final * (ABNORMAL) Urinalysis, Complete, with Reflex to Culture (05/03/2025 3:37 PM EDT) Color Urine Yellow [facility] Appearance Urine Clear [facility] PH >=9.0 5.0 - 9.0 [facility] Glucose Urine UA Negative Negative mg/dL [facility] Urine Blood Negative Negative [facility] Specific [place] - Urine 1.025 1.005 - 1.025 [facility] Urine Protein 30 (1+)(A) Neg-Trace mg/dL [facility] Urine Ketones Negative Negative mg/dL [facility] Nitrite Urine Negative Negative [facility] Leukocyte Esterase Urine Trace(A) Negative [facility] RBC Urine 0-2 0 - 2 /HPF [facility] Urine WBC 0-5 0 - 5 /HPF [facility] Urine Squamous Epithelial Cell 3-5 0 - 2 /HPF [facility] Urine Bacteria None Seen None Seen [facility] Hyaline Casts, Urine 0-2 0 - 2 /LPF [facility] 05/03/2025 3:37 PM EDT 05/03/2025 3:39 PM EDT Narrative [facility] - 05/03/2025 3:59 PM EDT [id number], Clean Catch us Generic External Data Provider LAB URINE ORDERAB LES Final Result Performing Organization Address [facility] Co de Phone Number [facility] [address] [place] [phone] * (ABNORMAL) Urinalysis w/reflex microscopic (05/03/2025 3:37 PM EDT) Color Urine Yellow [facility] Appearance Urine Clear [facility] PH >=9.0 5.0 - 9.0 [facility] Glucose Urine UA Negative Negative mg/dL [facility] Urine Blood Negative Negative [facility] Specific [place] - Urine 1.025 1.005 - 1.025 [facility] Urine Protein 30 (1+)(A) Neg-Trace mg/dL [facility] Urine Ketones Negative Negative mg/dL [facility] Nitrite Urine Negative Negative [facility] Leukocyte Esterase Urine Trace(A) Negative [facility] 05/03/2025 3:37 PM EDT 05/03/2025 3:39 PM EDT Narrative [facility] - 05/03/2025 3:43 PM EDT [id number], Clean Catch Generic External Data Provider LAB URINE ORDERAB LES Final Result Performing Organization Address [facility] Co de Phone Number [facility] [address] [place] [phone] * XR Chest 1 View (05/03/2025 3:07 PM EDT) Anatomical Region Laterality Modality Chest Radiographic Emilie ging 05/03/2025 3:07 PM EDT Narrative 05/03/2025 3:09 PM EDT [address] [address] XRay Report Signed Patient: Janice Lomeli MR#: [id number] : 1940 Acct:[id number] Age/Sex: 84 / F ADM Date: 05/03/25 Loc: HO.ED Attending Dr: Ordering Physician: Sonam Anderson PA-C Date of Service: 05/03/25 Procedure(s): XR chest 1V Accession Number(s): [id number] cc: Sonam Anderson PA-C; [facility] Reason for Exam: chest pain CLINICAL HISTORY: chest pain --- Additional Notes or Special Instructions: [id number] 1 view chest x-ray Comparison: CR/SR - XR CHEST 1 VIEW - 06/13/24 22:43 EDT CR/SR - XR CHEST 2 VIEWS - 10/12/23 17:30 EST Findings: Prominence of the pulmonary vasculature. Right upper lobe ground-glass opacity superimposed with the right cardiac border. Cardiomegaly. Mild osteopenia. IMPRESSION: 1. CHF. 2. Right upper lobe ground-glass opacity, possibly representing pneumonia. Short-term follow-up is suggested. 3. Mild osteopenia. This document has been electronically signed by: Artie Shields MD on 05/03/2025 15:07:57 Dictated By: Artie Shields MD Signed By: <Electronically signed by Artie Shields MD in OV> 05/03/25 1509 DD/ 1507 TD/TT: 05/03/25 1507 Bacon Stringer: Procedure Note Donotuseinterpreter, Image - 05/03/2025 [place] [address] XRay Report Signed Patient: Mery Lomeli#: [id number] : 9Acct:[id number] Age/Sex: 84 / FADM Date: 05/03/25 Loc: .ED Attending Dr: Ordering Physician: Sonam Anderson PA-C Date of Service: 05/03/25 Procedure(s): XR chest 1V Accession Number(s): [id number] cc: Sonam Anderson PA-C; [facility] Reason for Exam: chest pain CLINICAL HISTORY: chest pain --- Additional Notes or Special Instructions:[id number] 1 view chest x-ray Comparison: CR/SR - XR CHEST 1 VIEW - 06/13/24 22:43 EDT CR/SR - XR CHEST 2 VIEWS - 10/12/23 17:30 EST Findings: Prominence of the pulmonary vasculature. Right upper lobe ground-glass opacity superimposed with the right cardiac border. Cardiomegaly. Mild osteopenia. IMPRESSION: 1. CHF. 2. Right upper lobe ground-glass opacity, possibly representing pneumonia. Short-term follow-up is suggested. 3. Mild osteopenia. This document has been electronically signed by: Artie Shields MD on 05/03/2025 15:07:57 Dictated By: Artie Shields MD Signed By: <Electronically signed by Artie Shields MD in OV> 05/03/25 1509 DD/ 1507 TD/TT: 05/03/25 1507 Bacon Stringer: [facility] External Provider IMG XR PROCEDURES Edited Result - Final * Strep A Nucleic Acid (05/03/2025 1:39 PM EDT) Pathologist [facility] IDNOW SERIAL# [id number] [facility] Strep A Nucleic Acid Negative Negative [facility] Comment:All test results mus t be correlated with clinical findings.This test has not been evaluated for monitoring treatment ofinfection.Additional follow-up testing using the culture method isrequired if the result is negative and clinical symptomspersist, or in the event of an acute rheumatic feveroutbreak. 05/03/2025 1:39 PM EDT 05/03/2025 1:45 PM EDT Generic External Data Provider LAB MICROBIOLOGY - GENERAL ORDERABLES Final Result [facility] [address] [place] [phone] * Magnesium (05/03/2025 12:23 PM EDT) Pathologist [facility] Magnesium 2.0 1.6 - 2.6 mg/dL [facility] 05/03/2025 12:2 3 PM EDT 05/03/2025 12:27 PM EDT Generic External Data Provider LAB BLOOD ORDERAB LES Final Result Performing Organization Address [facility]/ZIP Co de Phone Number [facility] [address] [place] [phone] * Lipase (05/03/2025 12:23 PM EDT) Pathologist [facility] Lipase 11 8 - 78 U/L [facility] 05/03/2025 12:2 3 PM EDT 05/03/2025 12:27 PM EDT Generic External Data Provider LAB BLOOD ORDERAB LES Final Result Performing Organization Address [facility] Co de Phone Number [facility] [address] [place] [phone] * (ABNORMAL) Comprehensive Metabolic Panel (05/03/2025 12:23 PM EDT) [facility] Sodium 137 135 - 145 mmol/L [facility] Potassium 4.4 3.3 - 5.1 mmol/L [facility] Chloride 103 96 - 108 mmol/L [facility] Carbon Dioxide 25 22 - 29 mmol/L [facility] Anion Gap 13 12 - 20 [facility] Urea Nitrogen (BUN) 16 9 - 16 mg/dL [facility] Creatinine, Serum 1.06 0.5 - 1.4 mg/dL [facility] Creatinine Clr Calc Pharmacy 30.0 [facility] Comment:Provided height and weight: 152.4 cm,56.699 kg.eGFR (calculated from the MDRD study equation) and eCrCl(calculated from the Cockcroft-Gault equation) are based ondifferent parameters and may not yield comparable results.If eCrCl result is absurd, please check patient'sheight/weight. Estimated Glomerular Filt Rate 49 [facility] Comment:Chronic Kidney Disea se: Estimated GFR < 60 mL/min/1.46j5Fjuxmw Kidney Disease: Estimated GFR < 15 mL/min/1.73m2 Glucose 126(H) 60 - 115 mg/dL [facility] Calcium 8.7 8.4 - 10.2 mg/dL [facility] Bilirubin, Total 1.4(H) 0.0 - 1.0 mg/dL [facility] Aspartate Amino Transferase 28 5 - 31 U/L [facility] Alanine Aminotransferase 14 0 - 31 U/L [facility] Total Protein 7.2 6.5 - 8.0 g/dL [facility] Albumin Level 4.0 3.5 - 5.0 g/dL [facility] Alkaline Phosphatase 53 39 - 117 U/L [facility] 05/03/2025 12:2 3 PM EDT 05/03/2025 12:27 PM EDT us Generic External Data Provider LAB BLOOD ORDERAB LES Final Result [facility] [address] [place] [phone] * (ABNORMAL) POCT HGB A1C (03/23/2025 4:38 PM EDT) Hemoglobin A1C 5.8(A) 4.0 - 5.7 % QC Media Lot # [id number] Lot# Expiration Date ,[id number] Blood 03/23/2025 4:38 PM EDT Marisabel Delaney MD POINT OF CARE TEST ENTER/EDIT ORDERABLES Final Result * Albumin, Random Urine W/Creatinine (05/17/2023 11:08 AM EDT) Creatinine, Urine 41.70 mg/dL [facility] Microalbumin Urine 5.0 mg/L [facility] Microalbum Creatinine Ratio Ur 11.9 <30 ug/mg cr [facility] Comment:Albumin/Creatinine R atio Reference Ranges: Normal: < 30 ug/mg creatinine Microalbuminuria: 30 - 300 ug/mg creatinineClinical Albuminuria: > 300 ug/mg creatinine 05/17/2023 11:0 8 AM EDT 05/17/2023 5:26 PM EDT Marisabel Delaney MD LAB URINE ORDERABLES Final Res ult Performing Organization Address [facility] de Phone Number [facility] [address] [place] [phone] * (ABNORMAL) Lipid Panel, Standard (05/16/2023 2:30 PM EDT) Triglycerides 121 <150 mg/dL [facility] Comment:Desirable Triglyceri de: less than 150 mg/dLBorderline High Triglyceride 150-199 mg/dLHigh Triglyceride: 200-499 mg/dLVery High Triglyceride: greater than or equal to 5OO mg/dL Cholesterol 177 <200 mg/dL [facility] Comment:Desirable Cholestero l: less than 200 mg/dLBorderline High Cholesterol: 200-239 mg/dLHigh Cholesterol: greater than 239 mg/dL LDL Cholesterol Calculated 100(H) <100 mg/dL [facility] Comment:Desirable LDL: less than 100 mg/dLNear Optimal/Above Optimal LDL: 110- 129 mg/dLBorderline High LDL: 130-159 mg/dLHigh LDL: 160-189 mg/dLVery High LDL: greater than or equal to 190 mg/dL HDL Cholesterol 53 >40 mg/dL [facility] Comment:Desirable HDL: great er than 40 mg/dL Note: This HDL assay may give artificially low results in patients with liver disease. Blood Venous blood specimen / Unknown 05/16/2023 2:30 PM EDT 05/16/2023 5:17 PM EDT Marisabel Delaney MD LAB BLOOD ORDERABLES Final Res ult Performing Organization Address [facility] Co de Phone Number [facility] [address] [place] [phone] from Last 3 Months or Most Recently Relevant to Health Maintenance Insurance [facility] [employer] OPT[employer] (HMO D-SNP) JONATHON VILLAFUERTE [id number] [facility] [address] [address] Care Teams Meteorology Teacher Relationship Specialty Start Date End Date Marisabel Delaney MD [address] [place] [address] PCP - General Family Medicine 04/14/22 Aveatja 06/05/25
--- OUTSIDE RECORDS SUMMARY | 2025-07-01 15:18 | XMS_ITS | Encounter Summary ---
Author Organization [facility] Address [address] [facility] 7t [place] [address] Care Team Providers Care Airline Counter Agent Name Role Phone Marisabel Delaney MD Primary Care Provider [phone] Reason for Referral * Consultation (Routine) - Authorized Specialty Diagnoses / Procedures Referred By Contac t Referred To Contact Orthopaedic Surgery Diagnoses Tendinopathy of right rotator cuff Marisabel Delaney MD [address] [place] [address] Phone: tel: fax: [facility] [address] [place] [address] Drive [address] [place], [place] Phone: tel: fax: Referral ID Status Reason Start Date Expiration Date Visits Requested Visits Authorized [id number] Authorized Specialty Services Required 09/04/2024 09/04/2025 1 1 Encounter Details Date Type Department Care Team (Late st Contact Info) Description 09/04/2024 Orders Only [facility] [address] [place] [address] Marisabel Delaney MD [address] [place] [address] Tendinopathy of right rotator cuff (Primary Dx) [...] Description 07/03/2025 1:00 PM EST Office Visit [facility] [address] [place] [phone] Gabbi Salcido MD [address] [place] [address] Scheduled Referrals Name Type Priority Associated Diagnoses [...] documented as of this encounter Care Teams Airline Counter Agent Relationship Specialty Start Date End Date Marisabel Delaney MD [address] [place] [address] PCP - General Family Medicine 04/14/22 Juan 06/05/25 documented as of this encounter
--- OUTSIDE RECORDS SUMMARY | 2025-07-01 15:18 | XMS_ITS | Encounter Summary ---
Author Organization [employer] Address [address] [facility] 7t [place] [address] Care Team Providers Care Delivery Aide Name Role Phone Marisabel Delaney MD Primary Care Provider [phone] Reason for Visit * Reason Onset Date Comments Durable Medical Equipment 07/01/2025 DME: B oost Encounter Details Date Type Department Care Team ([facility] st Contact Info) Description 07/01/2025 Telephone [facility] [address] [place] [address] Marisabel Delaney MD [address] [place] [address] Durable Medical Equipment (DME: Boost) Social History Tobacco Use Types Packs/Day Years [...] encounter Miscellaneous Notes * Telephone Encounter - Sophie Hollins - 07/01/2025 3:08 PM EST DME order for Boost was sent to [facility] via Fax with supporting documentation. Confirmationwas uoloaded to [employer]. * Telephone Encounter - Sophie Hollins - 07/01/2025 3:07 PM EST ----- Message from Teresita Zuluaga MD sent at 06/30/2025 9:43 AM EST ----- Patient is a prescription for boost twice daily (diverticulitis + history of IFG) documented in this encounter Plan of Treatment Upcoming Encounters Date Type Department Care Team (Late st Contact Info) Description 07/03/2025 1:00 PM EST Office Visit [facility] [address] [place], [place] [phone] Gabbi Salcido MD [address] [place], [place] [phone] documented as of this encounter Visit Diagnoses Not on filedocumented in this encounter Additional Health Concerns Assessment Noted Time PHQ-9 Depression Total Score: 0 08/15/20 3:52 PM EST documented as of this encounter Care Teams Delivery Aide Relationship Specialty Start Date End Date Marisabel Delaney MD [address] [place] [address] PCP - General Family Medicine 04/14/22 Abdirashideanicky 06/05/25 documented as of this encounter
--- OUTSIDE RECORDS SUMMARY | 2025-07-01 15:18 | XMS_ITS | Patient Health Record ---
Author Organization [facility] Address [address] [place] [address] Care Team Providers Care Package Delivery Driver Name Role Phone Marisabel Delaney M.D. Primary Care Provider UnaFahad Juares Unavailable [phone] Reason For Referral No Information Plan Of Treatment No Information Insurance Providers Payer Name Payer Address Payer Phone Subscriber Number Group Number Insured Name Patient Relationship to Insured Coverage Start Date Coverage End Date [facility] [address] [place] [address] [id number] JEFFERY LOREDO Self - patient is the insured
== END 2025-07-01 13:58 | disposition home or self-care (01) ==
LOC: HO.HGI 12:40
PROVIDERS: PCP General Practice; Visit Provider Nurse Practitioner
DX: I26.99 Other pulmonary embolism without acute cor pulmonale (principal); R10.9 Unspecified abdominal pain
CPT/HCPCS: 99214

== ENCOUNTER → 2025-07-01 12:39 | Outpatient (BNVA) | payer OTHER, SELFPAY | PROVIDERS: PCP General Practice; Visit Provider Nurse Practitioner | DX: I26.99 Other pulmonary embolism without acute cor pulmonale (principal); R10.9 Unspecified abdominal pain; G89.29 Other chronic pain | CPT/HCPCS: 99212 ==

== ENCOUNTER 2025-07-31 14:22 | Outpatient (REF) | payer OTHER, SELFPAY ==
--- NOTE | ~2025-07-31 | CT_ITS ---
EXAMINATION: CT ANGIOGRAM ABDOMEN AND PELVIS CLINICAL INFORMATION: I 26.89. Other pulmonary embolism without acute cor pulmonale. COMPARISON: May 03, 2025. TECHNIQUE: Multiple axial images were obtained through the abdomen and pelvis following the administration of 80 mL of Omnipaque 350 intravenous contrast. Images were reviewed on a dedicated 3-D workstation. This CT examination was performed using dose optimization techniques as appropriate, variously including the following: *Automated exposure control *Adjustment of mA and/or kV according to patient size (this includes techniques or standardized protocols for targeted exams where dose is matched to indication/reason for exam; i.e. extremities or head) *Use of iterative reconstruction technique DLP: 188 mGy-cm FINDINGS: Abdominal aorta is patent with tortuosity and mixed plaques throughout the wall. Normal caliber without focal stenosis or intimal flap. No IV contrast extravasation. Calcified plaque in the origin of the celiac trunk, superior mesenteric artery, main renal arteries. The mesenteric arteries are patent. The main renal arteries are patent. The common iliac arteries are patent without focal stenosis or intimal flap. The heart is enlarged. Left-sided pleural effusion, small trace volume. Ancillary findings: Chronic interstitial lung disease with mild interstitial lung edema in the correct clinical settings. Numerous diverticula in the rectosigmoid colon and transverse colon. Appendix is normal. No ascites. No pneumoperitoneum. No pneumatosis intestinalis. No peripheral enhancing fluid collections in the peritoneal cavity. Nonspecific mildly prominent mesenteric and retroperitoneal lymph nodes. Levoconvex rotoscoliosis of the lumbar spine. Multilevel thoracolumbar spondylosis. Old compression deformity representing 50% volume loss without retropulsion at T12. 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 Old traumatic deformity in the right hemipelvis. CT/CT angio abdomen pelvis IMPRESSION: No aneurysm or dissection, thoracic aorta. Mixed plaques throughout the abdominal aorta wall and iliac arteries. Diverticulosis/diverticular disease. Left-sided pleural effusion, small volume and mild interstitial lung edema in the correct clinical settings. Cardiomegaly. Fleischner guidelines were followed. Electronically signed by: Jhonatan Montemayor MD 07/31/2025 03:08 PM [facility]
[2025-07-31] MEDS: iohexoL 350 MG/ML 100 ML INFUS..BTL IV (14:51)
[2025-07-31 15:19] LABS: Creatinine POC 1.0 mg/dL (0.5-1.4); GFR POC 58
--- OUTSIDE RECORDS SUMMARY | 2025-07-31 19:38 | XMS_ITS | Encounter Summary ---
Author Organization [employer] Address [address] [facility] [address] 7[address] [place] [address] Care Team Providers Care Health Education Director Name Role Phone Marisabel Delaney MD Primary Care Provider [phone] Encounter Details Date Type Department Care Team (Late st Contact Info) Description 07/31/2025 Orders Only [facility] External Provider, [facility] Social History Tobacco Use Types Packs/Day Years [...] Care Team (Late st Contact Info) Description 10/14/2025 3:00 PM EST Office Visit [facility] [address] [place], [place] [phone] Marisabel Delaney MD [address] [place], [place] [phone] 11/18/2025 3:00 PM EDT Office Visit [facility] [address] [place], [place] [phone] Minda Calixto, OD [address] [place] [address] documented as of this encounter Procedures Procedure Name Priority Date/Time Associated Diagnosis Comments CTA ABDOMEN PELVIS W AND WO CONTRAST Routine 07/31/2025 2:42 PM EST POCT CREATININE GFR Routine 07/31/2025 2 :36 PM EST documented in this encounter Results * CTA Abdomen Pelvis w/ and w/o Contrast (07/31/2025 2:42 PM EST) Anatomical Region Laterality Modality Body, Pelvis, Abdomen Computed T omography 07/31/2025 2:42 PM EST Narrative 07/31/2025 3:10 PM EST [facility] [address] [place] [address] Scan Report Signed Patient: Janice Lomeli MR#: [id number] : 1940 Acct:[id number] Age/Sex: 84 / F ADM Date: 07/31/25 Loc: HO.CT Attending Dr: Yessy Crow ANP-C Ordering Physician: Crow,Yessy ANP-C Date of Service: 07/31/25 Procedure(s): CT angio abdomen pelvis Accession Number(s): [id number] cc: Gabbi Salcido MD; Mignon JORDAN-C Report Number: [id number]: Total DLP = 188.00 mGy-cm Reason for Exam: I26.99 - Other pulmonary embolism without acute cor pulmonale EXAMINATION: CT ANGIOGRAM ABDOMEN AND PELVIS CLINICAL INFORMATION: I 26.89. Other pulmonary embolism without acute cor pulmonale. COMPARISON: May 03, 2025. TECHNIQUE: Multiple axial images were obtained through the abdomen and pelvis following the administration of 80 mL of Omnipaque 350 intravenous contrast. Images were reviewed on a dedicated 3-D workstation. This CT examination was performed using dose optimization techniques as appropriate, variously including the following: *Automated exposure control *Adjustment of mA and/or kV according to patient size (this includes techniques or standardized protocols for targeted exams where dose is matched to indication/reason for exam; i.e. extremities or head) *Use of iterative reconstruction technique DLP: 188 mGy-cm FINDINGS: Abdominal aorta is patent with tortuosity and mixed plaques throughout the wall. Normal caliber without focal stenosis or intimal flap. No IV contrast extravasation. Calcified plaque in the origin of the celiac trunk, superior mesenteric artery, main renal arteries. The mesenteric arteries are patent. The main renal arteries are patent. The common iliac arteries are patent without focal stenosis or intimal flap. The heart is enlarged. Left-sided pleural effusion, small trace volume. Ancillary findings: Chronic interstitial lung disease with mild interstitial lung edema in the correct clinical settings. Numerous diverticula in the rectosigmoid colon and transverse colon. Appendix is normal. No ascites. No pneumoperitoneum. No pneumatosis intestinalis. No peripheral enhancing fluid collections in the peritoneal cavity. Nonspecific mildly prominent mesenteric and retroperitoneal lymph nodes. Levoconvex rotoscoliosis of the lumbar spine. Multilevel thoracolumbar spondylosis. Old compression deformity representing 50% volume loss without retropulsion at T12. 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 Old traumatic deformity in the right hemipelvis. CT/CT angio abdomen pelvis IMPRESSION: No aneurysm or dissection, thoracic aorta. Mixed plaques throughout the abdominal aorta wall and iliac arteries. Diverticulosis/diverticular disease. Left-sided pleural effusion, small volume and mild interstitial lung edema in the correct clinical settings. Cardiomegaly. Fleischner guidelines were followed. Electronically signed by: Jhonatan Montemayor MD 07/31/2025 03:08 PM EST Dictated By: Jhonatan Muller MD Signed By: <Electronically signed by Jhonatan Moore MD in OV> 07/31/25 1508 DD/ 1442 TD/TT: 07/31/25 1458 [employer]mill: Procedure Note Donotuseinterpreter, Image - 07/31/[address] [place] [address] [address] Scan Report Signed Patient: Mery Lomeli#: [id number] : 9Acct:[id number] Age/Sex: 84 / FADM Date: 07/31/25 Loc: HO.CT Attending Dr: Yessy RAMIREZ Ordering Physician: Yessy Crow Date of Service: 07/31/25 Procedure(s): CT angio abdomen pelvis Accession Number(s): [id number] cc: Gabbi Salcido MD; Yessy Crow Report Number: [id number]: Total DLP = 188.00 mGy-cm Reason for Exam: I26.99 - Other pulmonary embolism without acute corpulmonale EXAMINATION: CT ANGIOGRAM ABDOMEN AND PELVIS CLINICAL INFORMATION: I 26.89. Other pulmonary embolism without acute cor pulmonale. COMPARISON: May 03, 2025. TECHNIQUE: Multiple axial images were obtained through the abdomen and pelvis following the administration of 80 mL of Omnipaque 350 intravenous contrast. Images were reviewed on a dedicated 3-D workstation. This CT examination was performed using dose optimization techniques as appropriate, variously including the following: *Automated exposure control *Adjustment of mA and/or kV according to patient size (this includes techniques or standardized protocols for targeted exams where dose is matched to indication/reason for exam; i.e. extremities or head) *Use of iterative reconstruction technique DLP: 188 mGy-cm FINDINGS: Abdominal aorta is patent with tortuosity and mixed plaques throughout the wall. Normal caliber without focal stenosis or intimal flap. No IV contrast extravasation. Calcified plaque in the origin of the celiac trunk, superior mesenteric artery, main renal arteries. The mesenteric arteries are patent. The main renal arteries are patent. The common iliac arteries are patent without focal stenosis or intimal flap. The heart is enlarged. Left-sided pleural effusion, small trace volume. Ancillary findings: Chronic interstitial lung disease with mild interstitial lung edema in the correct clinical settings. Numerous diverticula in the rectosigmoid colon and transverse colon. Appendix is normal. No ascites. No pneumoperitoneum. No pneumatosis intestinalis. No peripheral enhancing fluid collections in the peritoneal cavity. Nonspecific mildly prominent mesenteric and retroperitoneal lymph nodes. Levoconvex rotoscoliosis of the lumbar spine. Multilevel thoracolumbar spondylosis. Old compression deformity representing 50% volume loss without retropulsion at T12. 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 Old traumatic deformity in the right hemipelvis. CT/CT angio abdomen pelvis IMPRESSION: No aneurysm or dissection, thoracic aorta. Mixed plaques throughout the abdominal aorta wall and iliac arteries. Diverticulosis/diverticular disease. Left-sided pleural effusion, small volume and mild interstitial lung edema in the correct clinical settings. Cardiomegaly. Fleischner guidelines were followed. Electronically signed by: Jhonatan Montemayor MD 07/31/2025 03:08 PM EST Dictated By: Jhonatan Muller MD Signed By: <Electronically signed by Jhonatan Moore MDin OV> 07/31/25 1508 DD/ 1442 TD/TT: 07/31/25 1458 Lab[employer] Sawmill: [facility] External Provider IMG CT PROCEDURES Final Result * POCT Creatinine GFR (07/31/2025 2:36 PM EST) POCT Creatinine 1.0 0.5 - 1.4 mg/dL [facility] GFR POC 58 [facility] Comment:Chronic Kidney Disea se: Estimated GFR < 60 mL/min/1.07n1Dyufgn Kidney Disease: Estimated GFR < 15 mL/min/1.73m2 07/31/2025 2:36 PM EST 07/31/2025 3:18 PM EST Narrative [facility] - 07/31/2025 3:19 PM EST [id number] us Generic External Data Provider LAB POINT OF CARE TEST DOCKED DEVICE ORDERABLES Final Result [facility] [address] [place] [phone] documented in this encounter Visit Diagnoses Not on filedocumented in this encounter Additional Health Concerns Assessment Noted Time PHQ-9 Depression Total Score: 0 08/15/20 24 3:52 PM EST documented as of this encounter Care Teams Health Education Director Relationship Specialty Start Date End Date Marisabel Delaney MD [address] [place] [address] PCP - General Family Medicine 04/14/22 Aveanna 06/05/25 documented as of this encounter
--- OUTSIDE RECORDS SUMMARY | 2025-07-31 19:38 | XMS_ITS | Encounter Summary ---
Author Organization [facility] Address [address] [facility] 7t [place] [address] Care Team Providers Care Mass Communications Professor Name Role Phone Marisabel Delaney MD Primary Care Provider [phone] Encounter Details Date Type Department Care Team (Late st Contact Info) Description 11/30/2022 Orders Only [facility] [address] [place] [address] [phone] Marisabel Delaney MD [address] [place], [place] [phone] Colitis (Primary Dx) Social History Tobacco Use [...] Description 10/14/2025 3:00 PM EST Office Visit [facility] [address] [place] [address] Marisabel Delaney MD [address] [place] [address] 11/18/2025 3:00 PM EDT Office Visit [facility] OPTOM[facility] [address] [place] [address] [phone] Minda Calixto OD [address] [place] [address] documented as of this encounter Visit Diagnoses Diagnosis Colitis- Primary Other and unspecified noninfectious gastroenteritis and colitis documented in this encounter Care Teams Mass Communications Professor Relationship Specialty Start Date End Date Marisabel Delaney MD [address] [place], [place] [phone] PCP - General Family Medicine 04/14/22 Juan 06/05/25 documented as of this encounter
--- OUTSIDE RECORDS SUMMARY | 2025-07-31 19:38 | XMS_ITS | Encounter Summary ---
Author Organization [employer] [facility] Address [address] [facility] 7t [place] [address] Care Team Providers Care Icing And Glaze Maker Name Role Phone Marisabel Delaney MD Primary Care Provider [phone] Reason for Referral * Consultation (Routine) - Authorized Specialty Diagnoses / Procedures Referred By Contac t Referred To Contact Orthopaedic Surgery Diagnoses Tendinopathy of right rotator cuff Marisabel Delaney MD [address] [place] [phone] Phone: tel: fax: [facility] [address] [place] [address] Dr [address] [place] [address] Phone: tel: fax: Referral ID Status Reason Start Date Expiration Date Visits Requested Visits Authorized [id number] Authorized Specialty Services Required 09/04/2024 09/04/2025 1 1 Encounter Details Date Type Department Care Team (Late st Contact Info) Description 09/04/[address] [facility] [address] [place] [address] [phone] Marisabel Delaney MD [address] [place] [address] [phone] Tendinopathy of right rotator cuff (Primary Dx) [...] Description 10/14/2025 3:00 PM EST Office Visit [facility] [address] [place] [address] Marisabel Delaney MD [address] [place] [address] 11/18/2025 3:00 PM EDT Office Visit [facility] [address] [place] [address] Minda Calixto OD [address] [place] [address] Scheduled Referrals Name Type Priority Associated Diagnoses [...] documented as of this encounter Care Teams Icing And Glaze Maker Relationship Specialty Start Date End Date Marisabel Delaney MD [address] [place] [address] PCP - General Family Medicine 04/14/22 Aveanna 06/05/25 documented as of this encounter
--- OUTSIDE RECORDS SUMMARY | 2025-07-31 19:38 | XMS_ITS | Clinical Summary ---
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 05/12/20 21 Active donepezil (Aricept) 10 MG tablet Take 10 mg by mouth at bedtime. 10/16/19 23 Active mirtazapine (Remeron) 45 MG tablet Take 45 mg by mouth at bedtime. 10/16/19 23 Active Blood Pressure Monitoring (Blood Pressure Cuff) miscIndications: Primary hypertension 1 each in the morning. 1 each 07/16/20 23 Active pantoprazole (ProtoNix) 40 MG EC tablet Take 40 mg by mouth 2 times daily. 08/31/19 24 Active sertraline (Zoloft) 50 MG tabletIndication s:Acute depression Take 50 mg by mouth in the morning. 11/05/19 25 Active Bisacodyl EC 5 MG EC tabletIndication s:Constipation, unspecified constipation type Take 1 tablet (5 mg) by mouth if needed each day for constipatio n. Do not crush, chew, or split. 30 tablet 3 5 11:26 AM EST 06/09/20 25 Active sucralfate (Carafate) 1 GM/10ML suspension GIVE 10 ML BY MOUTH EVERY TWELVE HOURS NEEDED FOR PAIN (STOMACH) 414 mL 3 5 11:26 AM EST 06/22/20 25 Active Eliquis 5 MG tabletIndication s:Single subsegmental pulmonary embolism without acute cor pulmonale (CMS/HCC) (HCC) Take 1 tablet (5 mg) by mouth 2 times daily. 60 tablet 2 5 11:26 AM EST 07/03/20 25 Active Multiple Vitamin (Multivitamin) tablet TAKE 1 TABLET BY MOUTH EVERY MORNING WITH FOOD 90 tablet 3 07/19/20 25 Active Multiple Vitamin (Multivitamin) tablet TAKE 1 TABLET BY MOUTH EVERY MORNING WITH FOOD 90 tablet 3 07/07/20 24 025 Discontinued Eliquis 5 MG tablet Take 5 mg by mouth 2 times daily. 06/23/20 25 025 Discontinued(Re order (will not trigger notification to Pharmacy)) Active Problems Problem Noted Date Diagnosed Date Single subsegmental pulmonar y embolism without acute cor pulmonale (CMS/HCC) 07/03/2025 Unstable gait 07/03/2025 Diverticulitis 07/03/2025 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 [...] quality of life, day/night sleep schedule Has DAY TREATMENT CLINICIAN/ART THERAPIST hours daily for 2-4 hours Assessment & Plan (02/10/2024 12:58 PM EDT): Continue Donepezil, consider additional agents? Family declines geriatrics consult at this time Her behaviors are not disruptive, but repetitive and perseverating Focus on quality of life, day/night sleep schedule Has DAY TREATMENT CLINICIAN/ART THERAPIST hours daily for 2-4 hours Assessment & [...] imaging to treatment/watch and wait Referred to [facility] ER and an expect was called Assessment & Plan (11/19/2024 9:57 AM EDT): Recommend drinking more liquids Call [facility] gastroenterology to make a followup appointment EGD [...] AM EST): See above, will refer to fuel oil clerk to educate family re diet Assessment & [...] 6:21 AM EST): Upcoming thyroid US at [facility] Congestive heart failure 03/20/2013 Overview (07/18/2023): per [...] Encounters Date Type Department Care Team Description 07/31/2025 Orders Only External Provider, [facility] 07/24/2025 Travel 07/15/2025 Refill [facility] [address] [place] [address] Marisabel Delaney MD 07/03/2025 1:00 PM EST Office Visit [facility] [address] [place] [address] Gabbi Salcido MD 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, psychotic disturbance, mood disturbance, or anxiety (HCC) (Primary Dx); Prediabetes; Single subsegmental pulmonary embolism without acute cor pulmonale (CMS/HCC) (HCC); Unstable gait; Cardiomyopathy, unspecified type (CMS/HCC) (HCC); Chronic systolic congestive heart failure (HCC); Diverticulitis 07/03/2025 Travel 07/02/[address] [address] Marisabel Delaney MD chart prep 07/01/[address] [address] Marisabel Delaney MD Durable Medical Equipment (DME: [employer]) 06/25/2025 Patient Outreach [facility] [address], [place] [phone] Marisabel Delaney MD Transition Of Care (Tcm) (HDF scheduled ) 06/21/[address] [address] Mairsabel Delaney MD 06/09/2025 10:45 AM EDT Office Visit [address] [address] Teresita Zuluaga MD 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 (Primary Dx); Diverticular disease; Constipation, unspecified constipation type; Encounter for immunization; 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 ) 05/03/2025 Orders Only GENERIC EXTERNAL DATA DEPARTMENT Provider, Generic External Data from Last 3 Months Immunizations Immunization Administration [...] Sign Reading Time Taken Comments Blood Pressure 120/80 07/03/2025 1:05 PM EST Pulse 93 07/03/2025 1:05 PM EST Temperature 36.1 C (97 F) 07/03/2025 1:05 PM EST Respiratory Rate 16 07/03/2025 1:05 PM EST Oxygen Saturation 96% 07/03/2025 1:05 PM EST Inhaled Oxygen Concentration - - Weight 56.5 kg (124 lb 9.6 oz) 07/03/2025 1:05 P M EST Height 149.9 cm (4' 11 ) 07/03/2025 1:05 PM EST Body Mass Index 25.17 07/03/2025 1:05 PM EST Plan of Treatment Upcoming Encounters Date Type Department Care Team (Late st Contact Info) Description 10/14/2025 3:00 PM EST Office Visit [facility] [address] [place] [address] Marisabel Delaney MD [address] [place], [place] [phone] 11/18/2025 3:00 PM EDT Office Visit [facility] [address] [place] [address] Minda Calixto, OD [address] [place] [address] Health Maintenance Due Date Last Done Comments [...] 09/17/2024, Additional history exists Diabetes: Hemoglobin A1C 12/31/2025 025, 03/23/2025, 08/15/2024, Additional history exists SDOH Screening 03/23/2026 03/23/2025 Tobacco Screening 07/03/2026 07/03/2025 Dental X-Ray: Full Mouth 04/10/2028 025, 09/19/2021, 01/16/2018 DTaP/Tdap/Td Vaccines (4 - Td or Tdap) 01/14/2032 01/13/2022, 04/07/2020, 08/22/2016, Additional history exists Pneumococcal Vaccine: 50+ Years Completed 04/07/2020, 09/01/2009, 08/20/2009, Additional history exists Diabetes: Urine Protein Screening Discontinued 05/17/2023, 07/04/2021 Influenza Vaccine Completed 06/09/2025, , 06/05/2022, Additional history exists Diabetes: Foot Exam Discontinued HIB Vaccines Aged [...] GFR Routine 07/31/2025 2 :36 PM EST POCT GLYCATED HEMOGLOBIN, TOTAL Routine 07/03/2025 1:09 PM EST Prediabetes XR KUB AND UPRIGHT 2 VIEWS Routine [...] METABOLIC PANEL Routine 05/03/2025 12:23 PM EDT PANORAMIC RADIOGRAPHIC IMAGE Routine 04/09/2025 1:30 PM EDT ALBUMIN, RANDOM URINE W/CREATININE Routine 05/17/2023 11:08 AM EDT LIPID PANEL, STANDARD Routine 05/16/2023 2:30 PM EDT Type 2 diabetes mellitus with diabetic autonomic neuropathy, without long-term current use of insulin ([facility]) PERIODIC ORAL EVALUATION - ESTABLISHED PATIENT Routine 09/19/2021 12:00 AM EST from Last 3 Months or Most Recently Relevant to Health Maintenance Results * CTA Abdomen Pelvis w/ and w/o Contrast (07/31/2025 2:42 PM EST) Anatomical Region Laterality Modality Body, Pelvis, Abdomen Computed T omography 07/31/2025 2:42 PM EST Narrative 07/31/2025 3:10 PM EST [place] [address] CT Scan Report Signed Patient: Janice Lomeli MR#: [id number] : 1940 Acct:[id number] Age/Sex: 84 / F ADM Date: 07/31/25 Loc: HO.CT Attending Dr: Yessy RAMIREZ Ordering Physician: Yessy Crow Date of Service: 07/31/25 Procedure(s): CT angio abdomen pelvis Accession Number(s): [id number] cc: Gabbi Salcido MD; Yessy Crow Report Number: [id number]: Total DLP = 188.00 mGy-cm Reason for [...] by: Jhonatan Montemayor MD 07/31/2025 03:08 PM [facility] Dictated By: Jhonatan Muller MD Signed By: <Electronically signed by Jhonatan Moore MD in OV> 07/31/25 1508 DD/ 1442 TD/TT: 07/31/25 1458 Truck Farmer: Procedure Note Donotuseinterpreter, Image - 07/31/[address] [address] [address] Scan Report Signed Patient: Mery Lomeli#: [id number] : 1941Acct:[id number] Age/Sex: 84 / FADM Date: 07/31/25 Loc: HO.CT Attending Dr: Yessy RAMIREZ Ordering Physician: Yessy Crow Date of Service: 07/31/25 Procedure(s): CT angio abdomen pelvis Accession Number(s): [id number] cc: Gabbi Salcido MD; Yessy Crow Report Number: [id number]: Total DLP = 188.00 mGy-cm Reason for [...] 07/31/25 1508 DD/ 1442 TD/TT: 07/31/25 1458 Truck Farmer: [facility] External Provider IMG CT PROCEDURES Final Result * POCT Creatinine GFR (07/31/2025 2:36 PM EST) POCT Creatinine 1.0 0.5 - 1.4 mg/dL LABS GFR POC 58 LABS Comment:Chronic Kidney Disea se: Estimated GFR < 60 mL/min/1.72k2Tkjmte Kidney Disease: Estimated GFR < 15 mL/min/1.73m2 07/31/2025 2:36 PM EST 07/31/2025 3:18 PM EST Narrative LABS - 07/31/2025 3:19 PM EST [id number] Generic External Data Provider LAB POINT OF CARE TEST DOCKED DEVICE ORDERABLES Final Result LABS [address] [place] [phone] * POCT Hgb A1c (07/03/2025 1:09 PM EST) Hemoglobin A1C 5.6 4.0 - 5.7 % QC Media Lot # [id number] Lot# Expiration Date [id number] Blood 07/03/2025 1:09 PM EST us Gabbi Dallas MD POINT OF CARE TEST EN TER/EDIT ORDERABLES Final Result * XR KUB and Upright 2 Views (05/08/2025 8:45 AM EDT) Anatomical Region Laterality Modality Radiographic Emilie ging 05/08/2025 8:45 AM EDT Narrative 05/08/2025 9:33 AM EDT [address] [address] XRay Report Signed Patient: Janice Lomeli MR#: [id number] : 1940 Acct:[id number] Age/Sex: 84 / F ADM Date: 05/03/25 [facility]: [facility] 368-[address]: Andrew Jimenez MD Ordering Physician: Andrew Jimenez MD Date of Service: 05/08/25 Procedure(s): XR KUB Accession Number(s): [id number] cc: [facility]; Andrew Jimenez MD Reason for Exam: abd [...] in OV> 05/08/25930 DD/ 4 TD/TT: 05/08/25854 Truck Farmer: Procedure Note Donotuseinterpreter, Image - 05/08/[address] [address] XRay Report Signed Patient: Mery Lomeli#: [id number] : 9Acct:[id number] Age/Sex: 84 / FADM Date: 05/03/25 Loc: HO.S3 368-[address]: Andrew Jimenez MD Ordering Physician: Andrew Jimenez MD Date of Service: 05/08/25 Procedure(s): XR KUB Accession Number(s): [id number] cc: [facility]; Andrew Jimenez MD Reason for Exam: abd [...] in OV> 05/08/25930 DD/ 4 TD/TT: 05/08/25854 Truck Farmer: [facility] External Provider IMG XR PROCEDURES Edited Result - Final * Lactic Acid (05/03/2025 5:45 PM EDT) Lactic Acid 0.9 0.5 - 2.0 mmol/L LABS 05/03/2025 5:45 PM EDT 05/03/2025 5:49 PM EDT us Generic External Data Provider LAB BLOOD ORDERAB LES Final Result Performing Organization Address City/[facility] Co de Phone Number LABS [address] [place] [phone] * (ABNORMAL) High Sensitivity Troponin I (05/03/2025 5:16 PM EDT) Only the most recent of2 resultswithin the time period is included. TROPONIN I HIGH SENSITIVITY 25.6(H) <3.5 - 17.0 ng/L LABS Comment:The [place] high sens itivity Troponin-I results should beused in conjunction with other diagnostic information suchas ECG, clinical observations and information, and patientsymptoms to aid in the diagnosis of VT. 05/03/2025 5:16 PM EDT 05/03/2025 5:23 PM EDT us Generic External Data Provider LAB BLOOD ORDERAB LES Final Result Performing Organization Address [facility] Co de Phone Number LABS [address] [place] [phone] * CT Abdomen Pelvis w/ Contrast (05/03/2025 5:07 PM EDT) Anatomical Region Laterality Modality Body, Pelvis, Abdomen Computed T omography 05/03/2025 5:07 PM EDT Narrative 05/03/2025 5:08 PM EDT [address] [address] [address] Scan Report Signed with Addenda Patient: Janice Lomeli MR#: [id number] : 1940 Acct:[id number] Age/Sex: 84 / F ADM Date: 05/03/25 Loc: HO.ED Attending Dr: Ordering Physician: Sonam Anderson PA-C Date of Service: 05/03/25 Procedure(s): CT abdomen pelvis w IV con Accession Number(s): [id number] cc: Sonam Anderson PA-C; [facility] Report Number: [id number]: Total DLP = 506.00 mGy-cm Reason for [...] changes with adjacent pneumoperitoneum, axial image number 440 of 667. 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 Diverticulosis. The appendix within normal limits. Diverticulosis. No acute fracture. Lumbar levoscoliosis. IMPRESSION: 1. Sigmoid colon pericolonic inflammation with adjacent pneumoperitoneum; sigmoid diverticulitis with micro perforation. Clinical correlation suggested. 2. Hepatic steatosis. 3. Cardiomegaly. 4. 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 5. Prior cholecystectomy. This document has been electronically signed by: Artie Shields MD on 05/03/2025 17:07:19 Dictated By: Artie Shields MD Signed By: <Electronically signed by Artie Shields MD in OV> 05/03/251706 DD/ 06 TD/TT: 05/03/251706 Truck Farmer: Procedure Note Delvinter, Image - 05/03/[address] [place] [address] [address] Scan Report Signed with Addenda Patient: Violet LomeliR#: [id number] : 9Acct:[id number] Age/Sex: 84 / FADM Date: 05/03/25 Loc: HO.ED Attending Dr: Ordering Physician: Sonam Anderson PA-C Date of Service: 05/03/25 Procedure(s): CT abdomen pelvis w IV con Accession Number(s): [id number] cc: Sonam Anderson PA-C; [facility] Report Number: [id number]: Total DLP = 506.00 mGy-cm Reason for [...] changes with adjacent pneumoperitoneum, axial image number 444 of 667. Ybtd-uu-djansufj calcified atherosclerotic disease of the abdominal aorta. Diverticulosis. The appendix within normal limits. Diverticulosis. No acute fracture. Lumbar levoscoliosis. IMPRESSION: 1. Sigmoid colon pericolonic inflammation with adjacent pneumoperitoneum; sigmoid diverticulitis with micro perforation. Clinical correlation suggested. 2. Hepatic steatosis. 3. Cardiomegaly. 4. Qanh-va-ttkwygbb calcified atherosclerotic disease of the abdominal aorta. 5. Prior cholecystectomy. This document has been electronically signed by: Artie Shields MD on 05/03/2025 17:07:19 Dictated By: Artie Shields MD Signed By: <Electronically signed by Artie Shields MD in OV> 05/03/251706 DD/ 06 TD/TT: 05/03/251706 Truck Farmer: [facility] External Provider IMG CT PROCEDURES Edited Result - Final * (ABNORMAL) Urinalysis, Complete, with Reflex to Culture (05/03/2025 3:37 PM EDT) Color Urine Yellow LABS Appearance Urine Clear LABS PH >=9.0 5.0 - 9.0 LABS Glucose Urine UA Negative Negative mg/dL LABS Urine Blood Negative Negative LABS Specific Perry - Urine 1.025 1.005 - 1.025 LABS Urine Protein 30 (1+)(A) Neg-Trace mg/dL LABS Urine Ketones Negative Negative mg/dL LABS Nitrite Urine Negative Negative [facility] LABS Leukocyte Esterase Urine Trace(A) Negative LABS RBC Urine 0-2 0 - 2 /HPF LABS Urine WBC 0-5 0 - 5 /HPF LABS Urine Squamous Epithelial Cell 3-5 0 - 2 /HPF LABS Urine Bacteria None Seen None Seen [facility] LABS Hyaline Casts, Urine 0-2 0 - 2 /LPF LABS 05/03/2025 3:37 PM EDT 05/03/2025 3:39 PM EDT Narrative LABS - 05/03/2025 3:59 PM EDT [id number], Clean Catch us Generic External Data Provider LAB URINE ORDERAB LES Final Result Performing Organization Address [facility] Co de Phone Number LABS [address] [place] [phone] * (ABNORMAL) Urinalysis w/reflex microscopic (05/03/2025 3:37 PM EDT) Color Urine Yellow LABS Appearance Urine Clear LABS PH >=9.0 5.0 - 9.0 LABS Glucose Urine UA Negative Negative mg/dL LABS Urine Blood Negative Negative LABS Specific Perry - Urine 1.025 1.005 - 1.025 LABS Urine Protein 30 (1+)(A) Neg-Trace mg/dL LABS Urine Ketones Negative Negative mg/dL LABS Nitrite Urine Negative Negative [facility] LABS Leukocyte Esterase Urine Trace(A) Negative LABS 05/03/2025 3:37 PM EDT 05/03/2025 3:39 PM EDT Narrative LABS - 05/03/2025 3:43 PM EDT [id number], Clean Catch us Generic External Data Provider LAB URINE ORDERAB LES Final Result Performing Organization Address [facility] Co de Phone Number LABS [address] [place] [phone] * XR Chest 1 View (05/03/2025 3:07 PM EDT) Anatomical Region Laterality Modality Chest Radiographic Emilie ging 05/03/2025 3:07 PM EDT Narrative 05/03/2025 3:09 PM EDT [address] [address] XRay Report Signed Patient: Janice Lomeli MR#: [id number] : 1940 Acct:[id number] Age/Sex: 84 / F ADM Date: 05/03/25 Loc: HO.ED Attending Dr: Ordering Physician: Sonam Anderson PA-C Date of Service: 05/03/25 Procedure(s): XR chest 1V Accession Number(s): [id number] cc: Sonam Anderson PA-C; [facility] Reason for Exam: chest pain CLINICAL HISTORY: chest pain --- Additional Notes or Special Instructions: [id number] 1 view chest x-ray Comparison: CR/SR - [...] 05/03/25 1509 DD/ 1507 TD/TT: 05/03/25 1507 Truck Farmer: Procedure Note Donotuseinterpreter, Image - 05/03/[address] [address] XRay Report Signed Patient: Mery Lomeli#: [id number] : 1940cct:[id number] Age/Sex: 84 / FADM Date: 05/03/25 Loc: .ED Attending Dr: Ordering Physician: Sonam Anderson PA-C Date of Service: 05/03/25 Procedure(s): XR chest 1V Accession Number(s): [id number] cc: Sonam Anderson PA-C; [facility] Reason for Exam: chest pain CLINICAL HISTORY: chest pain --- Additional Notes or Special Instructions:[id number] 1 view chest x-ray Comparison: CR/SR - [...] 05/03/25 1509 DD/ 1507 TD/TT: 05/03/25 1507 Truck Farmer: [facility] External Provider IMG XR PROCEDURES Edited Result - Final * Strep A Nucleic Acid (05/03/2025 1:39 PM EDT) IDNOW SERIAL# [id number] [facility] LABS Strep A Nucleic Acid Negative Negative LABS Comment:All test results mus t be correlated with clinical findings.This test has not been evaluated for monitoring treatment ofinfection.Additional follow-up testing using the culture method isrequired if the result is negative and clinical symptomspersist, or in the event of an acute rheumatic feveroutbreak. 05/03/2025 1:39 PM EDT 05/03/2025 1:45 PM EDT Generic External Data Provider LAB MICROBIOLOGY - GENERAL ORDERABLES Final Result LABS [address] [place] [phone] * Magnesium (05/03/2025 12:23 PM EDT) Magnesium 2.0 1.6 - 2.6 mg/dL LABS 05/03/2025 12:2 3 PM EDT 05/03/2025 12:27 PM EDT Generic External Data Provider LAB BLOOD ORDERAB LES Final Result Performing Organization Address [facility]/ZIP Co de Phone Number LABS [address] [place] [phone] * Lipase (05/03/2025 12:23 PM EDT) [facility] Lipase 11 8 - 78 U/L [facility] LABS 05/03/2025 12:2 3 PM EDT 05/03/2025 12:27 PM EDT Generic External Data Provider LAB BLOOD ORDERAB LES Final Result Performing Organization Address [facility] Co de Phone Number LABS [address] [place] [phone] * (ABNORMAL) Comprehensive Metabolic Panel (05/03/2025 12:23 PM EDT) [facility] Sodium 137 135 - 145 mmol/L LABS Potassium 4.4 3.3 - 5.1 mmol/L LABS Chloride 103 96 - 108 mmol/L LABS Carbon Dioxide 25 22 - 29 mmol/L LABS Anion Gap 13 12 - 20 LABS Urea Nitrogen (BUN) 16 9 - 16 mg/dL LABS Creatinine, Serum 1.06 0.5 - 1.4 mg/dL LABS Creatinine Clr Calc Pharmacy 30.0 LABS Comment:Provided height and weight: 152.4 cm,56.699 kg.eGFR (calculated from the MDRD study equation) and eCrCl(calculated from the Cockcroft-Gault equation) are based ondifferent parameters and may not yield comparable results.If eCrCl result is absurd, please check patient'sheight/weight. Estimated Glomerular Filt Rate 49 LABS Comment:Chronic Kidney Disea se: Estimated GFR < 60 mL/min/1.30w5Igwznw Kidney Disease: Estimated GFR < 15 mL/min/1.73m2 Glucose 126(H) 60 - 115 mg/dL LABS Calcium 8.7 8.4 - 10.2 mg/dL LABS Bilirubin, Total 1.4(H) 0.0 - 1.0 mg/dL LABS Aspartate Amino Transferase 28 5 - 31 U/L LABS Alanine Aminotransferase 14 0 - 31 U/L LABS Total Protein 7.2 6.5 - 8.0 g/dL LABS Albumin Level 4.0 3.5 - 5.0 g/dL LABS Alkaline Phosphatase 53 39 - 117 U/L LABS 05/03/2025 12:2 3 PM EDT 05/03/2025 12:27 PM EDT us Generic External Data Provider LAB BLOOD ORDERAB LES Final Result Performing Organization Address City/[facility]/ZIP Co de Phone Number LABS [address] [place] [phone] * Albumin, Random Urine W/Creatinine (05/17/2023 11:08 AM EDT) Creatinine, Urine 41.70 mg/dL [facility] LABS Microalbumin Urine 5.0 mg/L [facility] LABS Microalbum Creatinine Ratio Ur 11.9 <30 ug/mg cr LABS Comment:Albumin/Creatinine R atio Reference Ranges: Normal: < 30 ug/mg creatinine Microalbuminuria: 30 - 300 ug/mg creatinineClinical Albuminuria: > 300 ug/mg creatinine 05/17/2023 11:0 8 AM EDT 05/17/2023 5:26 PM EDT us Marisabel Delaney MD LAB URINE ORDERABLES Final Res ult LABS [address] [place] [phone] * (ABNORMAL) Lipid Panel, Standard (05/16/2023 2:30 PM EDT) Triglycerides 121 <150 mg/dL [facility] LABS Comment:Desirable Triglyceri de: less than 150 mg/dLBorderline High Triglyceride 150-199 mg/dLHigh Triglyceride: 200-499 mg/dLVery High Triglyceride: greater than or equal to 5OO mg/dL Cholesterol 177 <200 mg/dL LABS Comment:Desirable Cholestero l: less than 200 mg/dLBorderline High Cholesterol: 200-239 mg/dLHigh Cholesterol: greater than 239 mg/dL LDL Cholesterol Calculated 100(H) <100 mg/dL LABS Comment:Desirable LDL: less than 100 mg/dLNear Optimal/Above Optimal LDL: 110- 129 mg/dLBorderline High LDL: 130-159 mg/dLHigh LDL: 160-189 mg/dLVery High LDL: greater than or equal to 190 mg/dL HDL Cholesterol 53 >40 mg/dL [facility] LABS Comment:Desirable HDL: great er than 40 mg/dL Note: This HDL assay may give artificially low results in patients with liver disease. Blood Venous blood specimen / Unknown 05/16/2023 2:30 PM EDT 05/16/2023 5:17 PM EDT Marisabel Delaney MD LAB BLOOD ORDERABLES Final Res ult LABS [address] [place] [phone] from Last 3 Months or Most Recently Relevant to Health Maintenance Insurance [employer] (HMO D-SNP) JONATHON VILLAFUERTE [id number] [facility] - [facility] Care Teams Pin Drafting Machine Tender Relationship Specialty Start Date End Date Marisabel Delaney MD [address] [place] [address] [place] [address] PCP - General Family Medicine 04/14/22 [place] 06/05/25
--- OUTSIDE RECORDS SUMMARY | 2025-07-31 19:38 | XMS_ITS | Patient Health Record ---
Author Organization [facility] Address [address] [place] [address] Care Team Providers Care Summer Sessions Director Name Role Phone Marisabel Delaney M.D. Primary Care Provider UnaFahad Juares Unavailable [phone] Reason For Referral No Information Plan Of Treatment No Information Insurance Providers Payer Name Payer Address Payer Phone Subscriber Number Group Number Insured Name Patient Relationship to Insured Coverage Start Date Coverage End Date [facility] [address] [place] [address] [id number] JEFFERY LOREDO Self - patient is the insured
== END 2025-07-31 14:23 | disposition home or self-care (01) ==
LOC: HO.CT 14:22
PROVIDERS: PCP Internal Medicine; Visit Provider Nurse Practitioner
DX: I26.99 Other pulmonary embolism without acute cor pulmonale (principal); R10.9 Unspecified abdominal pain
CPT/HCPCS: 74174; 82565; Q9967

== ENCOUNTER → 2025-07-31 14:26 | Outpatient (BNV) | payer OTHER, SELFPAY | PROVIDERS: PCP Internal Medicine; Visit Provider Radiology Diagnostic Radiology | DX: I70.0 Atherosclerosis of aorta (principal); J90 Pleural effusion, not elsewhere classified; J81.1 Chronic pulmonary edema; I51.7 Cardiomegaly | CPT/HCPCS: 74174 ==

== ENCOUNTER 2025-08-18 06:50 | Outpatient (REF) | payer OTHER, SELFPAY ==
--- NOTE | ~2025-08-18 | XR_ITS ---
EXAMINATION: XR CERVICAL SPINE CLINICAL INFORMATION: M43.12 - Spondylolisthesis, cervical region COMPARISON: 08/31/2024. TECHNIQUE: 6 views of the cervical spine, inclusive of flexion and extension views, and bilateral oblique views, were obtained. FINDINGS: There is no significant scoliosis. There is normal lordosis. There is no fracture, compression deformity, or suspicious bone lesion. There is a 3 mm degenerative retrolisthesis of C5 on C6 and 2 mm retrolisthesis of C6 on C7 on the neutral projection. On flexion and extension views, the subluxations remain unchanged. There is no evidence of instability. Severe disc degeneration is present C5-6 and C6-7. Disc spaces otherwise grossly preserved. C7-T1 is somewhat obscured. The craniocervical junction, and C1-2 articulation are intact and well aligned. Facets are normally aligned. There are multilevel hypertrophic degenerative facet changes bilaterally. Oblique views demonstrate mild left and moderate right neural foraminal narrowing at C5-6 and C6-7. There is no prevertebral soft tissue abnormality. Imaged lung apices are clear. XR/XR cervical spine w flex/ext IMPRESSION: 1. No acute bony or soft tissue abnormalities. 2. Moderate degenerative spondylosis most significant C5-6 and C6-7. 3. No evidence of instability on flexion and extension views. Electronically signed by: Khang Canseco MD 08/18/2025 11:50 AM [facility]
--- NOTE | ~2025-08-18 | FL_ITS ---
EXAMINATION: FLUOROSCOPY GUIDANCE FOR NEEDLE PLACEMENT CLINICAL INFORMATION: M54.12 - Radiculopathy, cervical region COMPARISON: Cervical spine x-rays from the same day TECHNIQUE: Fluoroscopy guidance was provided for pain management procedure. FINDINGS: 2 submitted fluoroscopic images demonstrate instrument projecting over the right lower cervical spine. See procedure note for detailed findings. FLUOROSCOPY TIME: 22 seconds DOSE AREA PRODUCT: 258 mGy-cm2 FL/FL guidance in treatment room IMPRESSION: Fluoroscopy guidance for pain management procedure. Electronically signed by: Martha Ramsey MD 08/18/2025 02:26 PM [facility]
--- OUTSIDE RECORDS SUMMARY | 2025-08-18 08:33 | XMS_ITS | Clinical Summary ---
Author Organization [employer] Address [address] [place] [address] Care Team Providers Care Home Care Physical Therapist Name Role Phone Marisabel Delaney MD Primary Care Provider [phone] Allergies Active Allergy Reactions Criticality Noted Date [...] by mouth 2 times daily. 4 Active sertraline (Zoloft) 50 MG tabletIndications :Acute depression Take 50 mg by mouth in the morning. 5 Active Bisacodyl EC 5 MG EC tabletIndications :Constipation, unspecified constipation type Take 1 tablet (5 mg) by mouth if needed each day for constipation . Do not crush, chew, or split. 30 tablet 3 07/23/2025 11:26 AM EST 5 Active sucralfate (Carafate) 1 GM/10ML suspension GIVE 10 ML BY MOUTH EVERY TWELVE HOURS NEEDED FOR PAIN (STOMACH) 414 mL 3 07/23/2025 11:26 AM EST 5 Active Eliquis 5 MG tabletIndications :Single subsegmental pulmonary embolism without acute cor pulmonale (CMS/HCC) (HCC) Take 1 tablet (5 mg) by mouth 2 times daily. 60 tablet 2 07/23/2025 11:26 AM EST Active Multiple Vitamin (Multivitamin) tablet TAKE 1 TABLET BY MOUTH EVERY MORNING WITH FOOD 90 tablet 3 Active Active Problems Problem Noted Date Diagnosed [...] quality of life, day/night sleep schedule Has PATIENT ACCESS SPECIALIST hours daily for 2-4 hours Assessment & Plan (02/10/2024 12:58 PM EDT): Continue Donepezil, consider additional agents? Family declines geriatrics consult at this time Her behaviors are not disruptive, but repetitive and perseverating Focus on quality of life, day/night sleep schedule Has PATIENT ACCESS SPECIALIST hours daily for 2-4 hours Assessment & [...] imaging to treatment/watch and wait Referred to [facility] ER and an expect was called Assessment & Plan (11/19/2024 9:57 AM EDT): Recommend drinking more liquids Call [facility] gastroenterology to make a followup appointment EGD [...] AM EST): See above, will refer to cloth printer to educate family re diet Assessment & [...] 6:21 AM EST): Upcoming thyroid US at [facility] Congestive heart failure 03/20/2013 Overview (07/18/2023): per [...] Encounters Date Type Department Care Team Description 08/11/2025 Patient Outreach [facility] [address] [place] [phone] Marisabel Delaney MD Transition Of Care (Tcm) (HDF- unable to schedule LVM ) 08/03/[address] [address] Marisabel Delaney MD Eliquis clearance letter 07/31/2025 Orders Only [facility] External Provider, [facility] 07/24/2025 Travel 07/15/[address] [address] Marisabel Delaney MD 07/03/2025 1:00 PM EST Office Visit [address] [address] Gabbi Salcido MD 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, psychotic disturbance, mood disturbance, or anxiety (HCC) (Primary Dx); Prediabetes; Single subsegmental pulmonary embolism without acute cor pulmonale (CMS/HCC) (HCC); Unstable gait; Cardiomyopathy, unspecified type (CMS/HCC) (HCC); Chronic systolic congestive heart failure (HCC); Diverticulitis 07/03/2025 Travel 07/02/[address] [address] Marisabel Delaney MD chart prep 07/01/[address] [address] Marisabel Delaney MD Durable Medical Equipment (DME: [employer]) 06/25/2025 Patient Outreach [facility] [address] [place], [place] [phone] Marisabel Delaney MD Transition Of Care (Tcm) (HDF scheduled ) 06/21/[address] [address] Marisabel Delaney MD 06/09/2025 10:45 AM EDT Office Visit [address] [address] Teresita Zuluaga MD 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 (Primary Dx); Diverticular disease; Constipation, unspecified constipation type; Encounter for immunization; 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, psychotic disturbance, mood disturbance, or anxiety (HCC) 06/09/2025 Travel 06/08/[address] [address] Marisabel Delaney MD Chart Prep 06/05/2025 Patient Outreach [address] [address] Marisabel Delaney MD Transition Of Care (Tcm) (RE: DISCHARGE SUMMARY FROM [facility]) 05/28/2025 Patient Outreach [address] [address] Marisabel Delaney MD Pre-visit Planning (HDF- scheduled and SDOH screening will need to be completed in office. ) from Last 3 Months Immunizations Immunization [...] Description 10/14/2025 3:00 PM EST Office Visit [facility] [address] [place] [address] Marisabel Delaney MD [address] [place] [address] 11/18/2025 3:00 PM EDT Office Visit [facility] [address] [place] [address] Minda Calixto, OD [address] [place] [address] Health Maintenance Due Date Last Done Comments Dental Prophylaxis 1940 Dental X-Ray: Bitewings 1938 Alcohol/Substance Use Screening 1950 RSV Patients and Patients Aged 60 years or older (1 - 1-dose 75+ series) 2013 Zoster Vaccines (2 of 3) 11/13/2014 09/18/2014 Dental Oral Exam 03/20/2022 09/19/2021, 06/2019, 01/16/2018 Lipid Panel 05/16/2024 05/16/2023, 07/04/2021 COVID-19 Vaccine ( - season) 2025 03/14/2022, 10/28/2020, 10/01/2020 Depression Screening 08/15/2025 08/15/2024, 08/15/20 Eye Exam [...] TOTAL Routine 07/03/2025 1:09 PM EST Prediabetes PANORAMIC RADIOGRAPHIC IMAGE Routine 04/09/2025 1:30 PM EDT ALBUMIN, RANDOM URINE W/CREATININE Routine 05/17/2023 11:08 AM EDT LIPID PANEL, STANDARD Routine 05/16/2023 2:30 PM EDT Type 2 diabetes mellitus with diabetic autonomic neuropathy, without long-term current use of insulin ([facility]) PERIODIC ORAL EVALUATION - ESTABLISHED PATIENT Routine 09/19/2021 12:00 AM EST from Last 3 Months or Most Recently Relevant to Health Maintenance Results * CTA Abdomen Pelvis w/ and w/o Contrast (07/31/2025 2:42 PM EST) Anatomical Region Laterality Modality Body, Pelvis, Abdomen Computed T omography 07/31/2025 2:42 PM EST Narrative 07/31/2025 3:10 PM EST [address] [address] [address] Scan Report Signed Patient: Janice Lomeli MR#: [id number] : 1940 Acct:[id number] Age/Sex: 84 / F ADM Date: 07/31/25 Loc: HO.CT Attending Dr: Yessy RAMIREZ Ordering Physician: Yessy Crow Date of Service: 07/31/25 Procedure(s): CT angio abdomen pelvis Accession Number(s): [id number] cc: Gabbi Salcido MD; Yessy Crow Report Number: [id number]: Total DLP = 188.00 mGy-cm Reason for [...] 07/31/25 1508 DD/ 1442 TD/TT: 07/31/25 1458 Processing Technician: Procedure Note Donotuseinterpreter, Image - 07/31/[address] [place] [address] [address] Scan Report Signed Patient: Mery Lomeli#: [id number] : 9Acct:[id number] Age/Sex: 84 / FADM Date: 07/31/25 Loc: HO.CT Attending Dr: Yessy RAMIREZ Ordering Physician: Yessy Crow Date of Service: 07/31/25 Procedure(s): CT angio abdomen pelvis Accession Number(s): [id number] cc: Gabbi Salcido MD; Yessy Crow Report Number: [id number]: Total DLP = 188.00 mGy-cm Reason for [...] 07/31/25 1508 DD/ 1442 TD/TT: 07/31/25 1458 Processing Technician: [facility] External Provider IMG CT PROCEDURES Final Result * POCT Creatinine GFR (07/31/2025 2:36 PM EST) POCT Creatinine 1.0 0.5 - 1.4 mg/dL [facility] GFR POC 58 [facility] Comment:Chronic Kidney Disea se: Estimated GFR < 60 mL/min/1.77i8Avlpgr Kidney Disease: Estimated GFR < 15 mL/min/1.73m2 07/31/2025 2:36 PM EST 07/31/2025 3:18 PM EST Narrative [facility] - 07/31/2025 3:19 PM EST [id number] us Generic External Data Provider LAB POINT OF CARE TEST DOCKED DEVICE ORDERABLES Final Result Performing Organization Address [facility] Co de Phone Number [facility] [address] [place] [phone] * POCT Hgb A1c (07/03/2025 1:09 PM EST) Hemoglobin A1C 5.6 4.0 - 5.7 % QC Media Lot # [id number] Lot# Expiration Date Blood 07/03/2025 1:0 9 PM EST us Gabbi Dallas MD POINT OF CARE TEST EN TER/EDIT ORDERABLES Final Result * Albumin, Random Urine W/Creatinine (05/17/2023 11:08 AM EDT) Creatinine, Urine 41.70 mg/dL [facility] Microalbumin Urine 5.0 mg/L [facility] Microalbum Creatinine Ratio Ur 11.9 <30 ug/mg cr [facility] Comment:Albumin/Creatinine R atio Reference Ranges: Normal: < 30 ug/mg creatinine Microalbuminuria: 30 - 300 ug/mg creatinineClinical Albuminuria: > 300 ug/mg creatinine 05/17/2023 11:0 8 AM EDT 05/17/2023 5:26 PM EDT us Marisabel Delaney MD LAB URINE ORDERABLES Final Res ult Performing Organization Address [facility]/ZIP Co de Phone Number [facility] [address] [place] [phone] * (ABNORMAL) Lipid Panel, Standard (05/16/2023 2:30 PM EDT) Triglycerides 121 <150 mg/dL [facility] Comment:Desirable Triglyceri de: less than 150 mg/dLBorderline High Triglyceride 150-199 mg/dLHigh Triglyceride: 200-499 mg/dLVery High Triglyceride: greater than or equal to 5OO mg/dL Cholesterol 177 <200 mg/dL [facility] Comment:Desirable Cholestero l: less than 200 mg/dLBorderline High Cholesterol: 200-239 mg/dLHigh Cholesterol: greater than 239 mg/dL LDL Cholesterol Calculated 100(H) <100 mg/dL [facility] Comment:Desirable LDL: less than 100 mg/dLNear Optimal/Above Optimal LDL: 110- 129 mg/dLBorderline High LDL: 130-159 mg/dLHigh LDL: 160-189 mg/dLVery High LDL: greater than or equal to 190 mg/dL HDL Cholesterol 53 >40 mg/dL [facility] Comment:Desirable HDL: great er than 40 mg/dL Note: This HDL assay may give artificially low results in patients with liver disease. Blood Venous blood specimen / Unknown 05/16/2023 2:30 PM EDT 05/16/2023 5:17 PM EDT us Marisabel Delaney MD LAB BLOOD ORDERABLES Final Res ult [facility] [address] [place] [phone] from Last 3 Months or Most Recently Relevant to Health Maintenance Insurance [address] [address] [facility] [employer] (HMO D-SNP) [facility] - [facility] Care Teams Home Care Physical Therapist Relationship Specialty Start Date End Date Marisabel Delaney MD [address] [place] [address] PCP - General Family Medicine 04/14/22 [place] 06/05/25
--- OUTSIDE RECORDS SUMMARY | 2025-08-18 08:33 | XMS_ITS | Encounter Summary ---
Author Organization [employer] [facility] Address [address] [place] [address] Care Team Providers Care Lithographers Printer Name Role Phone Marisabel Delaney MD Primary Care Provider [phone] Reason for Referral * Consultation (Routine) - Authorized Specialty Diagnoses / Procedures Referred By Contac t Referred To Contact Orthopaedic Surgery Diagnoses Tendinopathy of right rotator cuff Marisabel Delaney MD [address] [place] [phone] Phone: tel: fax: [facility] [address] [place] [address] [address] [place] [address] Phone: tel: fax: Referral ID Status Reason Start Date Expiration Date Visits Requested Visits Authorized [id number] Authorized Specialty Services Required 09/04/2024 09/04/2025 1 1 Encounter Details Date Type Department Care Team (Late st Contact Info) Description 09/04/2024 Orders Only [facility] [address] [place] [phone] Marisabel Delaney MD [address] [place] [address] [phone] Tendinopathy of right rotator cuff (Primary Dx) [...] Description 10/14/2025 3:00 PM EST Office Visit [facility] [address] [place] [address] Marisabel Delaney MD [address] [place] [address] 11/18/2025 3:00 PM EDT Office Visit [facility] [address] [place] [address] Minda Calixto OD [address] [place] [address] Scheduled Referrals Name Type Priority Associated Diagnoses [...] documented as of this encounter Care Teams Lithographers Printer Relationship Specialty Start Date End Date Marisabel Delaney MD [address] [place] [address] PCP - General Family Medicine 04/14/22 [place] 06/05/25 documented as of this encounter
--- OUTSIDE RECORDS SUMMARY | 2025-08-18 08:33 | XMS_ITS | Clinical Summary ---
Author Organization [facility] Address [address] [place] [address] Phone Care Team Providers Care Heel Varnisher Name Role Phone Inés Frances Primary Care [...] patient's age to complete this topic Insurance [facility] ([id number]) [facility] ([id number]) Care Teams Heel Varnisher Relationship Specialty Start Date End Date Frances Conte PCP - General Family Medicine 07/11/21
--- OUTSIDE RECORDS SUMMARY | 2025-08-18 08:33 | XMS_ITS | Encounter Summary ---
Author Organization [facility] [employer] [facility] Address [address] [place] [address] Care Team Providers Care Education Managers Name Role Phone Marisabel Delaney MD Primary Care Provider [phone] Encounter Details Date Type Department Care Team (Late st Contact Info) Description 11/30/2022 Orders Only [facility] [address] [place] [phone] Marisabel Delaney MD [address] [place], [place] [phone] Colitis (Primary Dx) Social History Tobacco Use [...] Description 10/14/2025 3:00 PM EST Office Visit [facility] [address] [place] [address] Marisabel Delaney MD [address] [place] [address] 11/18/2025 3:00 PM EDT Office Visit [facility] [address] [place] [phone] Minda Calixto OD [address] [place] [address] documented as of this encounter Visit Diagnoses Diagnosis Colitis- Primary Other and unspecified noninfectious gastroenteritis and colitis documented in this encounter Care Teams Education Managers Relationship Specialty Start Date End Date Marisabel Delaney MD [address] [place], [place] [phone] PCP - General Family Medicine 04/14/22 Juan 06/05/25 documented as of this encounter
--- OUTSIDE RECORDS SUMMARY | 2025-08-18 08:33 | XMS_ITS | Patient Health Record ---
Author Organization [facility] Address [address] [place] [address] Care Team Providers Care Paraprofessional Aide Teacher Name Role Phone Marisabel Delaney M.D. Primary Care Provider UnaFahad Juares Unavailable [phone] Reason For Referral No Information Plan Of Treatment No Information Insurance Providers Payer Name Payer Address Payer Phone Subscriber Number Group Number Insured Name Patient Relationship to Insured Coverage Start Date Coverage End Date [facility] [address] [place] [address] [id number] JEFFERY LOREDO Self - patient is the insured
== END 2025-08-18 06:51 | disposition home or self-care (01) ==
LOC: HO.XRAY 06:50
PROVIDERS: Absent Provider Internal Medicine; PCP Internal Medicine; Visit Provider Anesthesiology
DX: M43.12 Spondylolisthesis, cervical region (principal); M54.12 Radiculopathy, cervical region; I11.0 Hypertensive heart disease with heart failure; I50.9 Heart failure, unspecified; I42.9 Cardiomyopathy, unspecified; Z79.01 Long term (current) use of anticoagulants; Z79.899 Other long term (current) drug therapy
CPT/HCPCS: 36415; 72052; 83880; 99212

== ENCOUNTER 2025-08-18 07:43 | Outpatient (AMB) | payer OTHER, SELFPAY ==
[2025-08-18 07:49] VITALS: BP 144/69; PULSE 65; RESP 16; O2SAT 97; BMI 24.6
--- NOTE | 2025-08-18 07:49 | A.OFFVIS_ITS ---
Vital Signs 08/18/25 07:49 08/18/25 08:20 Height 4 ft 11 in Weight 122 lb BMI 24.6 BP 144/69 H 137/60 Blood Pressure Location Lt brachial Lt brachial Position Sitting Sitting Respiration 16 16 Pulse 65 71 Pulse Source Pulse Oximeter Pulse Oximeter Pulse Oximetry (%) 97 96 Oxygen Delivery Method Room Air Room Air Intake Visit Reasons: C6-C7 Interlaminar PATRICIA Allergies oxycodone (Percocet) Allergy (Mild, Verified 07/01/25 12:50) denies [facility] Medical History Chronic interstitial lung disease Alzheimer's dementia without behavioral disturbance Depression Chronic kidney disease, stage 2 (mild) Ascending aorta dilation CHF (congestive heart failure) Cardiomyopathy Diverticulitis of colon with perforation Malnourished Right sided abdominal pain Odynophagia Alzheimer disease Thoracic compression fracture Pubic bone fracture Closed fracture of iliac wing Closed rib fracture GERD (gastroesophageal reflux disease) HTN (hypertension) Dementia Diabetes Surgical History H/O colonoscopy History of varicose vein ligation and stripping History of hysterectomy History of cholecystectomy Family History Sister Epilepsy Social History Household Members: None Housing: Apartment Do you presently have visiting nurse or other home services: No Patient Tobacco Use Status: Never used Tobacco Advance Directives Date on File: 02/06/22 service: No Current occupational status: disabled Physical Exam Vital Signs: Last Vital Signs Pulse 71 08/18/25 08:20 Resp 16 08/18/25 08:20 BP 137/60 08/18/25 08:20 Pulse Ox 96 08/18/25 08:20 Oxygen Delivery Method Room Air 08/18/25 08:20 BMI result Body Mass Index 24.6 Assessment & Plan Assessment & Plan (1) Spondylolisthesis of cervical region: Code(s): M43.12 - Spondylolisthesis, cervical region Category: Medical (2) Cervical radiculopathy: Code(s): M54.12 - Radiculopathy, cervical region Category: Medical Plan Interlaminar C6-C7 epidural steroid injection. Patient came to the operating room after informed consent was thoroughly explained the patient using interpreting services of her son. Patient expressed understanding. Risks and benefits were explained to the patient, risks were included as risk of bleeding infection peripheral nerve damage spinal cord damage and headache. The patient came to the operating room and was positioned prone on operating table. The posterior neck and upper back were prepped with ChloraPrep and draped with sterile adhesive utility towels. C-arm was brought over the operating field and sq picture of the C6 and C7 cervical vertebra were delineated on the screen. Upper border of the Lamina of C7 vertebra on the right as close to the spinal process as possible was chosen as the initial target of the needle advancement. The projection of the target to the skin was injected with small amount of 1% lidocaine. After that 20 gauge Touhy needle was inserted through the skin and advanced to were the epidural space under intermittent anterior posterior and contralateral oblique views. Loss of resistance to air technique was used as a secondary detection of the epidural space sign. When tip of the needle cleared out through the interlaminar line and loss of resistance was felt injection of the contrast was performed demonstrating no intrathecal and no intravascular spread of the contrast. After that injection of the saline 0.9% mixed with Decadron 10 mg was performed into the area. Upon completion of the injection needle was withdrawn sterile Band- Aid was applied. Patient tolerated the procedure well. She was sent for x-ray of the cervical spine today because she has advanced spondylolisthesis she was sent for x-ray of flexion and an extension of the neck today. Orders: Orders FL guidance in treatment room Today Sun Wheeler APRN, TRANSFER MACHINE OPERATOR M54.12 - Radiculopathy, cervical region XR cervical spine w flex/ext Today Lucian Juan MD M43.12 - Spondylolisthesis, cervical region Coding Level of Care Code Procedure Only Diagnoses Spondylolisthesis of cervical region M43.12 Cervical radiculopathy M54.12
[2025-08-18 08:20] VITALS: BP 137/60; PULSE 71; RESP 16; O2SAT 96
== END 2025-08-18 08:22 | disposition home or self-care (01) ==
LOC: HO.PMCPRC 07:43
PROVIDERS: PCP Internal Medicine; Visit Provider Anesthesiology
DX: M43.12 Spondylolisthesis, cervical region (principal); M54.12 Radiculopathy, cervical region
CPT/HCPCS: 62321

== ENCOUNTER → 2025-08-18 08:37 | Outpatient (BNV) | payer OTHER, SELFPAY | PROVIDERS: PCP Internal Medicine; Visit Provider Radiology Diagnostic Radiology | DX: M43.12 Spondylolisthesis, cervical region (principal); M47.812 Spondylosis without myelopathy or radiculopathy, cervical region | CPT/HCPCS: 72052 ==

== ENCOUNTER 2025-08-18 13:36 | Outpatient (AMB) | payer OTHER, SELFPAY ==
[2025-08-18 13:58] VITALS: BP 120/60; PULSE 87; BMI 23.6
--- NOTE | 2025-08-18 13:58 | MHC.OFFVIS ---
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/Cardiomyopathy/CHF Negative Turner Apprentice Required: Yes Negative Turner Apprentice Name: ELVIN [id number] Accompanied by: Son Allergies oxycodone (Percocet) Allergy (Mild, Verified 07/01/25 12:50) denies Medication List - Last Reconciled 08/18/25 by Zac Ortega MD apixaban (Eliquis) mg PO bisacodyl 10 mg PO BEDTIME PRN cholecalciferol (vitamin D3) (Vitamin D3) 50 mcg PO DAILY donepezil 1 tab PO BEDTIME mirtazapine 1 tab PO BEDTIME multivitamin 1 tab PO DAILY pantoprazole 40 mg PO BID@0630,1630 sertraline 50 mg PO QAM sucralfate mL PO HPI Comments Details: Janice has been referred regarding evaluation of cardiomyopathy. Per notes, patient had presented to [facility] for diverticulitis type issues but had a chest CT scan that showed pulmonary embolism in the segmental/subsegmental pulmonary arteries in right lower lobe. At that time, echocardiogram had shown LV dysfunction with the ejection fraction of 59%. There was question of echogenic focus in the right atrium, could not rule out mass/thrombus. Patient herself denies any cardiac issues including congestive heart failure or coronary disease or in fact anything cardiac related. She also denies any cardiac symptoms like chest pain or shortness of breath. [facility] Medical History (Updated 08/18/25 @ 14:16 by Zac Ortega MD) Cardiomyopathy Chronic interstitial lung disease Alzheimer's dementia without behavioral disturbance Depression Chronic kidney disease, stage 2 (mild) Ascending aorta dilation CHF (congestive heart failure) Diverticulitis of colon with perforation Malnourished Right sided abdominal pain Odynophagia Alzheimer disease Thoracic compression fracture Pubic bone fracture Closed fracture of iliac wing Closed rib fracture GERD (gastroesophageal reflux disease) HTN (hypertension) Dementia Diabetes Surgical History H/O colonoscopy History of varicose vein ligation and stripping History of hysterectomy History of cholecystectomy Family History (Updated 08/18/25 @ 14:00 by Lori Stallings) Sister Epilepsy Mother No problems noted. Father No problems noted. Social History (Updated 08/18/25 @ 14:00 by Lori Stallings) Household Members: None Housing: Apartment Do you presently have visiting nurse or other home services: No Alcohol intake: never Patient Tobacco Use Status: Never used Tobacco Advance Directives Date on File: 02/06/22 service: No Current occupational status: disabled Review of Systems Const Denies weakness ENT Denies dizziness Card Denies chest pain, Denies chest pain with activity, Denies syncope, Denies rapid heart rate, Denies pedal edema, Denies edema, Denies leg edema, Denies lightheadedness, Denies palpitations, Reports dyspnea, Reports dyspnea on exertion and Denies orthopnea Resp Denies cough, Reports dyspnea and Reports dyspnea on exertion GI Denies hematochezia and Denies change in stool character Musc Denies abnormal gait, Denies muscle cramps, Denies muscle weakness, Denies numbness, Denies radiating pain into limb and Denies tingling Neuro Denies abnormal gait, Denies dizziness, Denies syncope, Denies numbness, Denies tingling and Denies weakness Endo Denies palpitations Physical Exam Vital Signs: Last Vital Signs Pulse 87 08/18/25 13:58 BP 120/60 08/18/25 13:58 BMI result Body Mass Index 23.6 Const General: comfortable and no acute distress Orientation/consciousness: patient oriented x3 HEENT Other: Unremarkable Head: Yes normal to inspection Neck Neck: Yes normal visual inspection Chest Chest palpation & inspection: normal inspection of the chest Resp Auscultation: clear to auscultation bilaterally Cardio Palpation: normal PMI Heart sounds: S1 normal heart sound present, S2 normal heart sound present, no gallops, no murmurs and no rubs GI Palpation (GI): Soft to palpation Back/Spine/Pelvis Other: unremarkable Skin General skin exam: no rashes or lesions noted Neuro General: patient oriented x3 Extrem General: Yes normal to inspection Psych Mental Status: mental status grossly normal Assessment & Plan Assessment & Plan (1) Cardiomyopathy: Code(s): I42.9 - Cardiomyopathy, unspecified Category: Medical Plan In the recent EKG, sinus rhythm at 83/Min; left ventricular hypertrophy with repolarization changes; leftward axis; overall, similar to prior. Echocardiogram from May at [facility] in setting of pulmonary embolism-LVEF 39%. Severe septal hypertrophy. Left atrium moderately dilated. Right atrium with the echogenic focus and cannot exclude mass/thrombus. [id number] aortic regurgitation. Ascending aortic size 4.4 cm. Overall, she has got no heart failure symptoms, but recent diagnosis of pulmonary embolism/cardiomyopathy. We will repeat her echocardiogram to reassess the LVEF other findings as described above. Check NT pro BNP. Clinically she does not appear volume overloaded and would hold off on diuretics. With the LVEF remains consistently low, then we will start guideline based medical therapy. However, she is also elderly, frail and has dementia and comorbidities and hence we will plan accordingly. Orders: Orders CA echo transthoracic complete Today I42.9 - Cardiomyopathy, unspecified NT Pro B Type Natriuretic Pept Today I42.9 - Cardiomyopathy, unspecified, I50.9 - Heart failure, unspecified Coding Level of Care Code New Pt Level 4 (99746) Add On Problem Visit Only Diagnoses Cardiomyopathy I42.9
--- OUTSIDE RECORDS SUMMARY | 2025-08-18 17:27 | XMS_ITS | Encounter Summary ---
Author Organization [facility] Address [address] [place] [address] Care Team Providers Care Assembler Truck Trailer Name Role Phone Marisabel Delaney MD Primary Care Provider [phone] Reason for Referral * Consultation (Routine) - Authorized Specialty Diagnoses / Procedures Referred By Contac t Referred To Contact Orthopaedic Surgery Diagnoses Tendinopathy of right rotator cuff Marisabel Dleaney MD [address] [place] [id number] Phone: tel: fax: [facility] [address] [place] [address] Dr [address] [place] [address] Phone: tel: fax: Referral ID Status Reason Start Date Expiration Date Visits Requested Visits Authorized [id number] Authorized Specialty Services Required 09/04/2024 09/04/2025 1 1 Encounter Details Date Type Department Care Team (Late st Contact Info) Description 09/04/2024 Orders Only [facility] [address] [place] [address] [phone] Marisabel Delaney MD [address] [place] [address] [phone] Tendinopathy of right rotator cuff (Primary Dx) [...] Description 10/14/2025 3:00 PM EST Office Visit [facility] [address] [place] [address] Marisabel Delaney MD [address] [place] [address] 11/18/2025 3:00 PM EDT Office Visit [facility] [address] [place] [address] Minda Calixto OD [address] [place] [address] Scheduled Referrals Name Type Priority Associated Diagnoses [...] documented as of this encounter Care Teams Assembler Truck Trailer Relationship Specialty Start Date End Date Marisabel Delaney MD [address] [place] [address] PCP - General Family Medicine 04/14/22 Aveanna 06/05/25 documented as of this encounter
--- OUTSIDE RECORDS SUMMARY | 2025-08-18 17:27 | XMS_ITS | Encounter Summary ---
Author Organization [employer] Address [address] [facility] [address] [place] [address] Care Team Providers Care Executive Chairman Of The Board Name Role Phone Marisabel Delaney MD Primary Care Provider [phone] Encounter Details Date Type Department Care Team (Late st Contact Info) Description 08/18/2025 Orders Only GENERIC EXTERNAL DATA DEPARTMENT Provider, Generic External Data Social History Tobacco Use Types Packs/Day Years [...] Description 10/14/2025 3:00 PM EST Office Visit [facility] [address] [place] [address] Marisabel Delaney MD [address] [place] [address] 11/18/2025 3:00 PM EDT Office Visit [facility] [address] [place] [address] Minda Calixto, OD [address] [place] [address] documented as of this encounter Procedures Procedure Name Priority Date/Time Associated Diagnosis Comments NT-PROBNP Routine 08/18/2025 2:43 PM EST documented in this encounter Results * (ABNORMAL) NT-proBNP (08/18/2025 2:43 PM EST) NT-proBNP 2,855.1(H ) <300 pg/mL [facility] Comment:Reference Range:Age Group (years) NT-proBNP (pg/ml) InterpretationAll <300 Negative: HF unlikelyFor patients presenting to the ED with clinical suspicion ofnew onset or worsening HF, see below:18 to <50 >299.9 to <450.0 Grayzone: [id number] to 75 >299.9 to <900.0 other causes of>75 >299.9 to <1800.0 NT-proBNP [id number] to <50 >449.9 Positive: HF -75 >899.9>75 >1799.9Note: Elevated NT-proBNP levels should be interpreted inthe context of other clinical information. 08/18/2025 2:43 PM EST 08/18/2025 2:43 PM EST us Generic External Data Provider LAB BLOOD ORDERAB LES Final Result [facility] [address] [place] [address] [phone] documented in this encounter Visit Diagnoses Not on filedocumented in this encounter Additional Health Concerns Assessment Noted Time PHQ-9 Depression Total Score: 0 08/15/20 24 3:52 PM EST documented as of this encounter Care Teams Executive Chairman Of The Board Relationship Specialty Start Date End Date Marisabel Delaney MD [address] [place] [address] PCP - General Family Medicine 04/14/22 Aveanna 06/05/25 documented as of this encounter
--- OUTSIDE RECORDS SUMMARY | 2025-08-18 17:27 | XMS_ITS | Encounter Summary ---
Author Organization [facility] [employer] [facility] Address [address] [place] [address] Care Team Providers Care Roll Coverer Name Role Phone Marisabel Delaney MD Primary Care Provider [phone] Encounter Details Date Type Department Care Team (Late st Contact Info) Description 11/30/2022 Orders Only [facility] [address] [place] [address] [phone] Marisabel Delaney MD [address] [place], [place] [phone] Colitis (Primary Dx) Social History Tobacco Use [...] Description 10/14/2025 3:00 PM EST Office Visit [facility] [address] [place] [address] Marisabel Delaney MD [address] [place] [address] 11/18/2025 3:00 PM EDT Office Visit [facility] [address] [place] [address] [phone] Minda Calixto OD [address] [place] [address] documented as of this encounter Visit Diagnoses Diagnosis Colitis- Primary Other and unspecified noninfectious gastroenteritis and colitis documented in this encounter Care Teams Roll Coverer Relationship Specialty Start Date End Date Marisabel Delaney MD [address] [place], [place] [phone] PCP - General Family Medicine 04/14/22 Juan 06/05/25 documented as of this encounter
--- OUTSIDE RECORDS SUMMARY | 2025-08-18 17:27 | XMS_ITS | Clinical Summary ---
Author Organization [facility] Address [address] [place] [address] Phone Care Team Providers Care Commercial Housekeeper Name Role Phone Inés Frances Primary Care [...] patient's age to complete this topic Insurance [facility] ([id number]) [facility] ([id number]) Care Teams Commercial Housekeeper Relationship Specialty Start Date End Date Frances Conte PCP - General Family Medicine 07/11/21
--- OUTSIDE RECORDS SUMMARY | 2025-08-18 17:27 | XMS_ITS | Clinical Summary ---
Author Organization [employer] Address [address] [facility] [address] [place] [address] Care Team Providers Care Transfer Pumper Name Role Phone Marisabel Delaney MD Primary Care Provider [phone] Allergies Active Allergy Reactions Criticality Noted Date [...] NEEDED FOR PAIN (STOMACH) 414 mL 3 08/18/2025 3:07 PM EST 5 Active Eliquis 5 MG tabletIndications [...] quality of life, day/night sleep schedule Has SKIP LOADER hours daily for 2-4 hours Assessment & Plan (02/10/2024 12:58 PM EDT): Continue Donepezil, consider additional agents? Family declines geriatrics consult at this time Her behaviors are not disruptive, but repetitive and perseverating Focus on quality of life, day/night sleep schedule Has SKIP LOADER hours daily for 2-4 hours Assessment & [...] imaging to treatment/watch and wait Referred to [facility] ER and an expect was called Assessment & Plan (11/19/2024 9:57 AM EDT): Recommend drinking more liquids Call [facility] gastroenterology to make a followup appointment EGD [...] AM EST): See above, will refer to first beater to educate family re diet Assessment & [...] 6:21 AM EST): Upcoming thyroid US at [facility] Congestive heart failure 03/20/2013 Overview (07/18/2023): per [...] Encounters Date Type Department Care Team Description 08/18/2025 Orders Only GENERIC EXTERNAL DATA DEPARTMENT Provider, Generic External Data 08/11/2025 Patient Outreach [facility] [address] [place] [phone] Marisabel Delaney MD Transition Of Care (Tcm) (HDF- unable to schedule LVM ) 08/03/2025 Telephone [facility] [address] [place] [phone] Marisabel Delaney MD Eliquis clearance letter 07/31/2025 Orders Only [facility] External Provider, [facility] 07/24/2025 Travel 07/15/2025 Refill [facility] [address] [place] [phone] Marisabel Delaney MD 07/03/2025 1:00 PM EST Office Visit [address] [address] Gabbi Salcido MD 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, psychotic disturbance, mood disturbance, or anxiety (HCC) (Primary Dx); Prediabetes; Single subsegmental pulmonary embolism without acute cor pulmonale (CMS/HCC) (HCC); Unstable gait; Cardiomyopathy, unspecified type (CMS/HCC) (HCC); Chronic systolic congestive heart failure (HCC); Diverticulitis 07/03/2025 Travel 07/02/[address] [address] Marisabel Delaney MD chart prep 07/01/[address] [address] Marisabel Delaney MD Durable Medical Equipment (DME: [employer]) 06/25/2025 Patient Outreach [facility] [address] [place], [place] [phone] Marisabel Delaney MD Transition Of Care (Tcm) (HDF scheduled ) 06/21/[address] [address] Marisabel Delaney MD 06/09/2025 10:45 AM EDT Office Visit [address] [address] Teresita Zuluaga MD 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 (Primary Dx); Diverticular disease; Constipation, unspecified constipation type; Encounter for immunization; 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, psychotic disturbance, mood disturbance, or anxiety (HCC) 06/09/2025 Travel 06/08/[address] [address] Marisabel Delaney MD Chart Prep 06/05/2025 Patient Outreach [address] [address] Marisabel Delaney MD Transition Of Care (Tcm) (RE: DISCHARGE SUMMARY FROM [facility]) 05/28/2025 Patient Outreach [address] [address] Marisabel Delaney MD Pre-visit Planning (HDF- scheduled [...] Description 10/14/2025 3:00 PM EST Office Visit [facility] [address] [place] [address] Marisabel Delaney MD [address] [place] [address] 11/18/2025 3:00 PM EDT Office Visit [facility] [address] [place] [address] Minda Calixto, OD [address] [place] [address] Health Maintenance Due Date Last Done Comments Dental Prophylaxis 1940 Dental X-Ray: Bitewings 1940 Alcohol/Substance Use Screening 1950 RSV Patients and Patients Aged 60 years or older (1 - 1-dose 75+ series) 2013 Zoster Vaccines (2 of 3) 11/13/2014 09/18/2014 Dental Oral Exam 03/20/2022 09/19/2021, 06/2019, 01/16/2018 Lipid Panel 05/16/2024 05/16/2023, 07/04/2021 COVID-19 Vaccine ( season) 2025 03/14/2022, 10/28/2020, 10/01/2020 Depression Screening 08/15/2025 08/15/2024, 08/15/20 24 Eye [...] Comments NT-PROBNP Routine 08/18/2025 2:43 PM EST XR SPINE CERVICAL W/FLEXT AND/OR EXT Routine 08/18/2025 8:44 AM EST FL GUIDANCE IN TREATMENT ROOM Routine 08/18/2025 8:09 AM EST CTA ABDOMEN PELVIS W AND WO CONTRAST [...] neuropathy, without long-term current use of insulin ([facility]) PERIODIC ORAL EVALUATION - ESTABLISHED PATIENT Routine 09/19/2021 12:00 AM EST from Last 3 Months or Most Recently Relevant to Health Maintenance Results * (ABNORMAL) NT-proBNP (08/18/2025 2:43 PM EST) NT-proBNP 2,855.1(H ) <300 pg/mL [facility] Comment:Reference Range:Age Group (years) NT-proBNP (pg/ml) InterpretationAll <300 Negative: HF unlikelyFor patients presenting to the ED with clinical suspicion ofnew onset or worsening HF, see below:18 to <50 >299.9 to <450.0 Grayzone: [id number] to 75 >299.9 to <900.0 other causes of>75 >299.9 to <1800.0 NT-proBNP [id number] to <50 >449.9 Positive: HF -16 >899.9>75 >1799.9Note: Elevated NT-proBNP levels should be interpreted inthe context of other clinical information. 08/18/2025 2:43 PM EST 08/18/2025 2:43 PM EST us Generic External Data Provider LAB BLOOD ORDERAB LES Final Result Performing Organization Address City/State/[facility] Co de Phone Number [facility] [address] [place] [address] [phone] * XR Spine Cervical w/ Flext and/ Or Ext (08/18/2025 8:44 AM EST) Anatomical Region Laterality Modality Radiographic Emilie ging 08/18/2025 8:44 AM EST Narrative 08/18/2025 11:53 AM EST [address] [address] XRay Report Signed Patient: Janice Lomeli MR#: [id number] : 1940 Acct:[id number] Age/Sex: 84 / F ADM Date: 08/18/25 Loc: ERIC Attending Dr: Lucian Juan MD Ordering Physician: Lucian Juan MD Date of Service: 08/18/25 Procedure(s): XR cervical spine w flex/ext Accession Number(s): [id number] cc: Gabbi Salcido MD; Lucian Juan MD Reason for Exam: M43.12 - Spondylolisthesis, cervical region EXAMINATION: XR CERVICAL SPINE CLINICAL INFORMATION: M43.12 - Spondylolisthesis, cervical region COMPARISON: 08/31/2024. TECHNIQUE: 6 views of the cervical spine, inclusive of flexion and extension views, and bilateral oblique views, were obtained. FINDINGS: There is no significant scoliosis. There is normal lordosis. There is no fracture, compression deformity, or suspicious bone lesion. There is a 3 mm degenerative retrolisthesis of C5 on C6 and 2 mm retrolisthesis of C6 on C7 on the neutral projection. On flexion and extension views, the subluxations remain unchanged. There is no evidence of instability. Severe disc degeneration is present C5-6 and C6-7. Disc spaces otherwise grossly preserved. C7-T1 is somewhat obscured. The craniocervical junction, and C1-2 articulation are intact and well aligned. Facets are normally aligned. There are multilevel hypertrophic degenerative facet changes bilaterally. Oblique views demonstrate mild left and moderate right neural foraminal narrowing at C5-6 and C6-7. There is no prevertebral soft tissue abnormality. Imaged lung apices are clear. XR/XR cervical spine w flex/ext IMPRESSION: 1. No acute bony or soft tissue abnormalities. 2. Moderate degenerative spondylosis most significant C5-6 and C6-7. 3. No evidence of instability on flexion and extension views. Electronically signed by: Khang Canseco MD 08/18/2025 11:50 AM [facility] Dictated By: Khang Canseco MD Signed By: <Electronically signed by Khang Canseco MD in OV> 08/18/25 1150 DD/ 0844 TD/TT: 08/18/25 0856 Fruit Buyer: Procedure Note Donotuseinterpreter, Image - 08/18/[address] [address] XRay Report Signed Patient: Mery Lomeli#: [id number] : 9Acct:[id number] Age/Sex: 84 / FADM Date: 08/18/25 Loc: HO.XRAY Attending Dr: Lucian Juan MD Ordering Physician: Lucian Juan MD Date of Service: 08/18/25 Procedure(s): XR cervical spine w flex/ext Accession Number(s): [id number] cc: Gabbi Salcido MD; Lucian Juan MD Reason for Exam: M43.12 - Spondylolisthesis, cervical region EXAMINATION: XR CERVICAL SPINE CLINICAL INFORMATION: M43.12 - Spondylolisthesis, cervical region COMPARISON: 08/31/2024. TECHNIQUE: 6 views of the cervical spine, inclusive of flexion and extension views, and bilateral oblique views, were obtained. FINDINGS: There is no significant scoliosis. There is normal lordosis. There is no fracture, compression deformity, or suspicious bone lesion. There is a 3 mm degenerative retrolisthesis of C5 on C6 and 2 mm retrolisthesis of C6 on C7 on the neutral projection. On flexion and extension views, the subluxations remain unchanged. There is no evidence of instability. Severe disc degeneration is present C5-6 and C6-7. Disc spaces otherwise grossly preserved. C7-T1 is somewhat obscured. The craniocervical junction, and C1-2 articulation are intact and well aligned. Facets are normally aligned. There are multilevel hypertrophic degenerative facet changes bilaterally. Oblique views demonstrate mild left and moderate right neural foraminal narrowing at C5-6 and C6-7. There is no prevertebral soft tissue abnormality. Imaged lung apices are clear. XR/XR cervical spine w flex/ext IMPRESSION: 1. No acute bony or soft tissue abnormalities. 2. Moderate degenerative spondylosis most significant C5-6 and C6-7. 3. No evidence of instability on flexion and extension views. Electronically signed by: Khang Canseco MD 08/18/2025 11:50 AM EST Dictated By: Khang Canseco MD Signed By: <Electronically signed by Khang Canseco MD in OV> 08/18/25 1150 DD/ 0844 TD/TT: 08/18/25 0856 Fruit Buyer: [facility] External Provider IMG XR PROCEDURES Final Result * FL Guidance in Treatment Room (08/18/2025 8:09 AM EST) Anatomical Region Laterality Modality X-Ray Angiograph y 08/18/2025 8:09 AM EST Narrative 08/18/2025 2:29 PM EST [address] [address] Fluoroscopy Report Signed Patient: Janice Lomeli MR#: [id number] : 1940 Acct:[id number] Age/Sex: 84 / F ADM Date: 08/18/25 Loc: ERIC Attending Dr: Lucian Juan MD Ordering Physician: Sun Wheeler APRN, CNP Date of Service: 08/18/25 Procedure(s): FL guidance in treatment room Accession Number(s): [id number] cc: Gabbi Salcido MD; Sun Wheeler APRN, JOVANY Reason for Exam: M54.12 - Radiculopathy, cervical region EXAMINATION: FLUOROSCOPY GUIDANCE FOR NEEDLE PLACEMENT CLINICAL INFORMATION: M54.12 - Radiculopathy, cervical region COMPARISON: Cervical spine x-rays from the same day TECHNIQUE: Fluoroscopy guidance was provided for pain management procedure. FINDINGS: 2 submitted fluoroscopic images demonstrate instrument projecting over the right lower cervical spine. See procedure note for detailed findings. FLUOROSCOPY TIME: 22 seconds DOSE AREA PRODUCT: 258 mGy-cm2 FL/FL guidance in treatment room IMPRESSION: Fluoroscopy guidance for pain management procedure. Electronically signed by: Martha Ramsey MD 08/18/2025 02:26 PM EST Dictated By: Martha Ramsey MD Signed By: <Electronically signed by Martha Ramsey MD in OV> 08/18/25 1426 DD/ 0809 TD/TT: 08/18/25 0822 Fruit Buyer: HANSEL Procedure Note Donotuseinterpreter, Image - 08/18/[address] [address] Fluoroscopy Report Signed Patient: Violet LomeliR#: [id number] : 1940cct:[id number] Age/Sex: 84 / FADM Date: 08/18/25 Loc: ERIC Attending Dr: Lucian Juan MD Ordering Physician: Sun Wheeler APRN, CNP Date of Service: 08/18/25 Procedure(s): FL guidance in treatment room Accession Number(s): [id number] cc: Gabbi Salcido MD; Sun Wheeler APRN, JOVANY Reason for Exam: M54.12 - Radiculopathy, cervical region EXAMINATION: FLUOROSCOPY GUIDANCE FOR NEEDLE PLACEMENT CLINICAL INFORMATION: M54.12 - Radiculopathy, cervical region COMPARISON: Cervical spine x-rays from the same day TECHNIQUE: Fluoroscopy guidance was provided for pain management procedure. FINDINGS: 2 submitted fluoroscopic images demonstrate instrument projecting over the right lower cervical spine. See procedure note for detailed findings. FLUOROSCOPY TIME: 22 seconds DOSE AREA PRODUCT: 258 mGy-cm2 FL/FL guidance in treatment room IMPRESSION: Fluoroscopy guidance for pain management procedure. Electronically signed by: Martha Ramsey MD 08/18/2025 02:26 PM EST Dictated By: Martha Ramsey MD Signed By: <Electronically signed by Martha Ramsey MD in OV> 08/18/25 1426 DD/ 0809 TD/TT: 08/18/25 0822 Fruit Buyer: HANSEL [facility] External Provider IMG IR PROCEDURES Final Result * CTA Abdomen Pelvis w/ and w/o Contrast (07/31/2025 2:42 PM EST) Anatomical Region Laterality Modality Body, Pelvis, Abdomen Computed T omography 07/31/2025 2:42 PM EST Narrative 07/31/2025 3:10 PM EST [place] [address] CT Scan Report Signed Patient: Janice Lomeli MR#: [id number] : 1940 Acct:[id number] Age/Sex: 84 / F ADM Date: 07/31/25 Loc: HO.CT Attending Dr: Yessy RAMIREZ Ordering Physician: Yessy Crow Date of Service: 07/31/25 Procedure(s): CT angio abdomen pelvis Accession Number(s): [id number] cc: Gabbi Salcido MD; Yessy Crow Report Number: [id number]: Total DLP = 188.00 mGy-cm Reason for [...] 07/31/25 1508 DD/ 1442 TD/TT: 07/31/25 1458 Fruit Buyer: Procedure Note Donotuseinterpreter, Image - 07/31/[address] [address] [address] Scan Report Signed Patient: Mery Lomeli#: [id number] : 9Acct:[id number] Age/Sex: 84 / FADM Date: 07/31/25 Loc: HO.CT Attending Dr: Yessy RAMIREZ Ordering Physician: Yessy Crow Date of Service: 07/31/25 Procedure(s): CT angio abdomen pelvis Accession Number(s): [id number] cc: Gabbi Salcido MD; Yessy Crow Report Number: [id number]: Total DLP = 188.00 mGy-cm Reason for [...] 07/31/25 1508 DD/ 1442 TD/TT: 07/31/25 1458 Fruit Buyer: [facility] External Provider IMG CT PROCEDURES Final Result * POCT Creatinine GFR (07/31/2025 2:36 PM EST) POCT Creatinine 1.0 0.5 - 1.4 mg/dL [facility] GFR POC 58 [facility] Comment:Chronic Kidney Disea se: Estimated GFR < 60 mL/min/1.98r8Teuugo Kidney Disease: Estimated GFR < 15 mL/min/1.73m2 07/31/2025 2:36 PM EST 07/31/2025 3:18 PM EST Narrative [facility] - 07/31/2025 3:19 PM EST [id number] us Generic External Data Provider LAB POINT OF CARE TEST DOCKED DEVICE ORDERABLES Final Result Performing Organization Address [facility] Co de Phone Number [facility] [address] [place] [phone] * POCT Hgb A1c (07/03/2025 1:09 PM EST) Hemoglobin A1C 5.6 4.0 - 5.7 % QC Media Lot # [id number] Lot# Expiration Date Blood 07/03/2025 1:09 PM EST us Gabbi Dallas MD POINT OF CARE TEST EN TER/EDIT ORDERABLES Final Result * Albumin, Random Urine W/Creatinine (05/17/2023 11:08 AM EDT) Creatinine, Urine 41.70 mg/dL [facility] Microalbumin Urine 5.0 mg/L [facility] Microalbum Creatinine Ratio Ur 11.9 <30 ug/mg cr [facility] Comment:Albumin/Creatinine R atio Reference Ranges: Normal: < 30 ug/mg creatinine Microalbuminuria: 30 - 300 ug/mg creatinineClinical Albuminuria: > 300 ug/mg creatinine 05/17/2023 11:0 8 AM EDT 05/17/2023 5:26 PM EDT us Marisabel Delaney MD LAB URINE ORDERABLES Final Res ult Performing Organization Address City/[facility]/ZIP Co de Phone Number [facility] [address] [place] [phone] * (ABNORMAL) Lipid Panel, Standard (05/16/2023 2:30 PM EDT) Triglycerides 121 <150 mg/dL [facility] Comment:Desirable Triglyceri de: less than 150 mg/dLBorderline High Triglyceride 150-199 mg/dLHigh Triglyceride: 200-499 mg/dLVery High Triglyceride: greater than or equal to 5OO mg/dL Cholesterol 177 <200 mg/dL [facility] Comment:Desirable Cholestero l: less than 200 mg/dLBorderline High Cholesterol: 200-239 mg/dLHigh Cholesterol: greater than 239 mg/dL LDL Cholesterol Calculated 100(H) <100 mg/dL [facility] Comment:Desirable LDL: less than 100 mg/dLNear Optimal/Above Optimal LDL: 110- 129 mg/dLBorderline High LDL: 130-159 mg/dLHigh LDL: 160-189 mg/dLVery High LDL: greater than or equal to 190 mg/dL HDL Cholesterol 53 >40 mg/dL [facility] Comment:Desirable HDL: great er than 40 mg/dL Note: This HDL assay may give artificially low results in patients with liver disease. Blood Venous blood specimen / Unknown 05/16/2023 2:30 PM EDT 05/16/2023 5:17 PM EDT us Marisabel Delaney MD LAB BLOOD ORDERABLES Final Res ult [facility] [address] [place] [phone] from Last 3 Months or Most Recently Relevant to Health Maintenance Insurance [employer] (HMO D-SNP) JONATHON VILL[place]UERTE [id number] D[facility]AL - [facility] Care Teams Transfer Pumper Relationship Specialty Start Date End Date Marisabel Delaney MD [address] [place] [phone] PCP - General Family Medicine 04/14/22 [place] 06/05/25
== END 2025-08-18 14:19 | disposition home or self-care (01) ==
LOC: HO.HCS 13:36
PROVIDERS: PCP Internal Medicine; Visit Provider Internal Medicine
DX: I42.9 Cardiomyopathy, unspecified (principal)
CPT/HCPCS: 99214; G2211